=== PATIENT | female | born 1940 | race Caucasian/White ===

== ENCOUNTER 2016-03-30 07:34 | Emergency (ER) | payer OTHER ==
[~2016-03-30] VITALS: Ht 165.1 cm; Wt 87.1 kg
[2016-03-30 07:43] VITALS: Ht 165.1 cm; Wt 87.1 kg
[2016-03-30] MEDS ORDERED: SODIUM CHLORIDE 0.9% 1000ML 1,000 ML IV STA (07:55)
[2016-03-30] MEDS ORDERED: ONDANSETRON INJ 2 MG/ML 2 ML VIAL IV STA (07:55)
[2016-03-30 08:08] LABS: BASO % 0.4 %; BASO ABS # 0.04 K/uL (0-0.2); COMPLETE YES; EOS % 0.7 %; HEMATOCRIT 41.4 % (37-47); IG% 0.2 %; LYMPH % 20.1 %; LYMPH ABS # 2.02 K/uL (1.2-3.4); MEAN CELL VOLUME 91.6 fL (80-100); MEAN CORPUSCULAR HEMOGLOBIN 31.4 pg (25-34); MEAN CORPUSCULAR HGB CONC 34.3 g/dl (32-36); MEAN PLATELET VOLUME 10.8 fL (7.4-10.4); MONO % 5.9 %; NEUT % 72.7 %; PLATELET COUNT 313 K/uL (130-400); RED BLOOD COUNT 4.52 M/uL (4.2-5.4); WHITE BLOOD COUNT 10.06 K/uL (4.8-10.8)
[2016-03-30 08:15] LABS: ALT/SGPT 29 U/L (12-78); BLOOD UREA NITROGEN 12 mg/dl (7-18); BUN/CREATININE RATIO 16.2 (10-20); CALCIUM 8.6 mg/dl (8.5-10.1); CARBON DIOXIDE 24 mmol/L (21-32); CHLORIDE 101 mmol/L (98-107); CREATININE 0.76 mg/dl (0.60-1.20); GLUCOSE 93 mg/dl (70-99); POTASSIUM 3.5 mmol/L (3.5-5.1); SODIUM 137 mmol/L (136-145)
[2016-03-30 08:19] LABS: ALKALINE PHOSPHATASE 84 U/L (45-117); AST/SGOT 31 U/L (15-37)
[2016-03-30] MEDS ORDERED: VNTHFA/IN INH (08:21)
[2016-03-30] MEDS ORDERED: LISI20TA55 PO (08:21)
[2016-03-30] MEDS ORDERED: MOME200A INH (08:21)
[2016-03-30] MEDS ORDERED: METO50TA7 PO (08:21)
[2016-03-30] MEDS ORDERED: PARO30TA PO (08:21)
[2016-03-30] MEDS ORDERED: IPRASOL4 INH (08:21)
[2016-03-30] MEDS ORDERED: HYDR12.55 PO (08:21)
[2016-03-30 08:22] LABS: INR 1.1 (0.9-1.1); PARTIAL THROMBOPLASTIN RATIO 1.2; PROTHROMBIN TIME (PATIENT) 11.6 SECONDS (9.0-12.0)
--- NOTE | 2016-03-30 08:34 | DIAGNOSTIC IMAGING REPORT ---
CHEST ONE VIEW PORTABLE CLINICAL HISTORY: Fever. Sepsis. COMPARISON STUDY: No previous studies for comparison. FINDINGS: Lung volumes are normal. There is no consolidation. Pulmonary vascularity is normal. Cardiac size is normal. Mediastinal contours are normal. There is no evidence of pulmonary edema. IMPRESSION: No acute cardiopulmonary findings. Electronically signed by: Fawad Haas M.D. 03/30/2016 8:32 AM
[2016-03-30] MEDS ORDERED: ACETAMINOPHEN 500 MG TAB PO STA (08:52)
[2016-03-30] MEDS ORDERED: ONDA4TAB10 SL (09:16)
--- NOTE | 2016-03-30 09:16 | EMERGENCY ROOM VISIT NOTE ---
History Report prepared by [place]: Kamryn Marquez Under the Supervision of: Dr. Jose De Jesus D.O. First contact with patient: 07:38 Chief Complaint: FLU LIKE SX Stated Complaint: FLU LIKE SX History of Present Illness The patient is a 76 year old female who presents to the Emergency Room with complaints of worsening flu-like symptoms that started 4 days ago. The patient came to the ED via ambulance from home. The patient is experiencing a dry cough and sore throat, along with fever and chills. She hasn't taken anything for the fever since last night. She also began experiencing nausea and vomiting yesterday and diarrhea today. She denies any pain including abdominal pain. Source of History: patient Onset: 4 days ago Position: other (generalized) Quality: other (flu-like symptoms) Timing: worsening Associated Symptoms: + chills, + cough (dry), + diarrhea, + fevers, + nausea , + sorethroat, + vomiting, No abdominal pain Note: denies pain Review of Systems See HPI for pertinent positives & negatives. A total of 10 systems reviewed and were otherwise negative. Past Medical & Surgical Medical Problems: (1) Hypertension Family History No pertinent family history Social History Smoking Status: Never Smoker Marital Status: Housing Status: lives with family Current/Historical Medications Scheduled Albuterol Hfa (Ventolin Hfa), 2-4 PUFFS INH Q6H Hydrochlorothiazide (Hydrochlorothiazide), 1 TAB PO DAILY Ipratropium-Albuterol (Duoneb), 1 TREATMENT INH Q4H Lisinopril/Hctz (Prinzide 20-25MG), 1 TAB PO DAILY Metoprolol Succ (Toprol Xl) (Toprol-Xl), 50 MG PO DAILY Mometasone Furoate-Formoterol (Dulera 200/5 Mcg), 1 AER INH DAILY Ondasetron Odt (Zofran Odt), 4 MG SL Q6H Paroxetine Hcl (Paxil), 30 MG PO DAILY Allergies Coded Allergies: Sulfa Drugs (Verified Allergy, Unknown, 03/30/16) Uncoded Allergies: SULFAMETHOXAZOLE (Generic Allergy) (Allergy, Mild, Y, 05/11/02) RASH N (Allergy, Unknown, 05/11/02) nka (Allergy, Unknown, 05/11/02) sensitivity to smoke,fumes-hx asthmas (Allergy, Unknown, 05/11/02) sulfa-rash (Allergy, Unknown, 05/11/02) Physical Exam Vital Signs Date Time Temp Pulse Resp B/P Pulse Ox O2 Delivery O2 Flow Rate FiO2 03/30/16 08:47 38.9 96 32 156/79 94 Room Air 03/30/16 07:43 38.5 95 22 173/75 98 Room Air 03/30/16 07:43 95 Physical Exam CONSTITUTIONAL/VITAL SIGNS: Reviewed / noted above. GENERAL: Non-toxic in appearance. INTEGUMENTARY: Warm, dry, and [place]. HEAD: Normocephalic. EYES: without scleral icterus or trauma. ENT/OROPHARYNX: clear and mucous membranes are slightly dry. LYMPHADENOPATHY/NECK: Is supple without lymphadenopathy or meningismus. RESPIRATORY: Lungs clear and equal. CARDIOVASCULAR: Regular rate and rhythm. GI/ABDOMEN: Soft and nontender. No organomegaly or pulsatile mass. No rebound or guarding. Normal bowel sounds. EXTREMITIES: Warm and well perfused. BACK: No CVA tenderness. NEUROLOGICAL: Intact without focal deficits. PSYCHIATRIC: normal affect. MUSCULOSKELETAL: Normally developed with good muscle tone. Medical Decision & Procedures ER Provider Diagnostic Interpretation: X ray results and stated below per my interpretation and radiology interpretation. CHEST ONE VIEW PORTABLE CLINICAL HISTORY: Fever. Sepsis. COMPARISON STUDY: No previous studies for comparison. FINDINGS: Lung volumes are normal. There is no consolidation. Pulmonary vascularity is normal. Cardiac size is normal. Mediastinal contours are normal. There is no evidence of pulmonary edema. IMPRESSION: No acute cardiopulmonary findings. Electronically signed by: Fawad Haas M.D. 03/30/2016 8:32 AM Laboratory Results 03/30/16 07:40 Red Blood Count 4.52, Mean Corpuscular Volume 91.6, Mean Corpuscular Hemoglobin 31.4, Mean Corpuscular Hemoglobin Concent 34.3, Mean Platelet Volume 10.8, Neutrophils (%) (Auto) 72.7, Lymphocytes (%) (Auto) 20.1, Monocytes (%) (Auto) 5.9, Eosinophils (%) (Auto) 0.7, Basophils (%) (Auto) 0.4, Neutrophils # (Auto) 7.32, Lymphocytes # (Auto) 2.02, Monocytes # (Auto) 0.59, Eosinophils # (Auto) 0.07, Basophils # (Auto) 0.04 03/30/16 07:40 Test 03/30/16 07:40 White Blood Count 10.06 K/uL (4.8-10.8) Red Blood Count 4.52 M/uL (4.2-5.4) Hemoglobin 14.2 g/dL (12.0-16.0) Hematocrit 41.4 % (37-47) Mean Corpuscular Volume 91.6 fL (80-100) Mean Corpuscular Hemoglobin 31.4 pg (25-34) Mean Corpuscular Hemoglobin Concent 34.3 g/dl (32-36) Platelet Count 313 K/uL (130-400) Mean Platelet Volume 10.8 fL (7.4-10.4) Neutrophils (%) (Auto) 72.7 % Lymphocytes (%) (Auto) 20.1 % Monocytes (%) (Auto) 5.9 % Eosinophils (%) (Auto) 0.7 % Basophils (%) (Auto) 0.4 % Neutrophils # (Auto) 7.32 K/uL (1.4-6.5) Lymphocytes # (Auto) 2.02 K/uL (1.2-3.4) Monocytes # (Auto) 0.59 K/uL (0.11-0.59) Eosinophils # (Auto) 0.07 K/uL (0-0.5) Basophils # (Auto) 0.04 K/uL (0-0.2) RDW Standard Deviation 44.3 fL (36.4-46.3) RDW Coefficient of Variation 13.3 % (11.5-14.5) Immature Granulocyte % (Auto) 0.2 % Immature Granulocyte # (Auto) 0.02 K/uL (0.00-0.02) Prothrombin Time 11.6 SECONDS (9.0-12.0) Prothromb Time International Ratio 1.1 (0.9-1.1) Activated Partial Thromboplast Time 31.0 SECONDS (21.0-31.0) Partial Thromboplastin Ratio 1.2 Anion Gap 12.0 mmol/L (3-11) Est Creatinine Clear Calc Drug Dose 70.8 ml/min Estimated GFR () 89.6 Estimated GFR (Non- 77.3 BUN/Creatinine Ratio 16.2 (10-20) Calcium Level 8.6 mg/dl (8.5-10.1) Total Bilirubin 0.6 mg/dl (0.2-1) Direct Bilirubin 0.2 mg/dl (0-0.2) Aspartate Amino Transf (AST/SGOT) 31 U/L (15-37) Alanine Aminotransferase (ALT/SGPT) 29 U/L (12-78) Alkaline Phosphatase 84 U/L (45-117) Total Creatine Kinase 147 U/L (26-192) Creatine Kinase MB < 0.5 ng/ml (0.5-3.6) Creatine Kinase MB Ratio (0-3.0) Total Protein 6.8 gm/dl (6.4-8.2) Albumin 2.9 gm/dl (3.4-5.0) Lipase 112 U/L (73-393) Influenza Type A Antigen Neg for Influ A (NEG) Influenza Type B Antigen Neg for Influ B (NEG) Laboratory results as stated above per my review. Medications Administered Medications (Trade) Dose Ordered Sig/Azra Route Start Time Stop Time Status Last Admin Dose Admin Sodium Chloride (Nss 1000ml) 1,000 ml @ 999 mls/hr Q1H1M STAT IV 03/30/16 07:55 03/30/16 08:55 DC 03/30/16 07:55 999 MLS/HR Ondansetron HCl (Zofran Inj) 4 mg NOW STAT IV 03/30/16 07:55 03/30/16 07:57 DC 03/30/16 08:01 4 MG Acetaminophen (Tylenol Tab) 1,000 mg NOW STAT PO 03/30/16 08:52 03/30/16 08:53 DC 03/30/16 09:01 1,000 MG ED Course 0752: Previous medical records were reviewed. The patient was evaluated in room B8. A complete history and physical examination was performed. 0755: Ordered Zofran 4 mg IV, Sodium Chloride 1000 ml @ 999 mls/hr IV 0852: Ordered Tylenol Tab 1000 mg PO 0910: On reevaluation, the patient is doing well. I discussed the results and findings with the patient. She verbalized agreement of the treatment plan. She was discharged home. Medical Decision Differential includes gastroenteritis, food borne illness, infections, appendicitis, diverticulitis, inflammatory bowel disease, obstruction, GI bleed , biliary pathology. this is a 76-year-old female who presents to the ED with a chief complaint of nausea, vomiting and diarrhea. The patient states that she initially had a cough and some chills 4 days ago. Overnight she developed nausea, vomiting and diarrhea. Temperature today is 38.5. Physical exam reveals no abdominal tenderness or other significant symptoms. CBC is normal, complete metabolic panel is normal, lipase is normal. Flu swab was negative. Chest x-ray is negative for acute disease. The patient was treated with IV fluids and IV Zofran. She was given by mouth Tylenol. She did not vomit after being given the Zofran. She did have some diarrhea early when she is here but this subsided. The patient is felt to be stable for discharge. Prescription for Zofran given. Impression Primary Impression: Nausea vomiting and diarrhea Scribe Attestation The scribe's documentation has been prepared under my direction and personally reviewed by me in its entirety. I confirm that the note above accurately reflects all work, treatment, procedures, and medical decision making performed by me. Departure Information Dispostion Home / Self-Care Prescriptions Ondasetron Odt (ZOFRAN ODT) 4 Mg Tab 4 MG SL Q6H for Nausea, #20 TAB Prov: Jose De Jesus D.O. 03/30/16 Referrals Ellen Villafana M.D. (PCP) Forms HOME CARE DOCUMENTATION FORM, IMPORTANT VISIT INFORMATION Patient Instructions A Signature Page, ED Nausea Vomiting, My [facility] Additional Instructions Zofran: Allow one tablet to dissolve under the tongue every 6 hours as needed for nausea or vomiting. Tylenol as needed for discomfort or fever. Try to stay hydrated. Follow-up with your doctor for further care and evaluation in 1-2 days if symptoms persist. Return to the emergency department for worsening or new symptoms or any concerns. You have been examined and treated today on an emergency basis only. This is not a substitute for, or an effort to provide, complete comprehensive medical care. It is impossible to recognize and treat all injuries or illnesses in a single emergency department visit. It is therefore important that you follow up closely with your doctor. Call as soon as possible for an appointment.
[2016-03-30 09:32] VITALS: BP 145/68; PULSE 94; TEMP 37.5; O2SAT 93
== END 2016-03-30 09:33 | disposition home or self-care (01) ==
LOC: EDBD 07:34 → C.EDB 07:35
DX: R11.2 Nausea with vomiting, unspecified (principal); R19.7 Diarrhea, unspecified; R05 Cough; R50.9 Fever, unspecified; Z79.899 Other long term (current) drug therapy; I10 Essential (primary) hypertension

== ENCOUNTER → 2017-01-13 | Outpatient (CLI) | payer OTHER ==
[~2017-01-13] MED LIST: HYDR12.55 PO; IPRASOL4 INH; LISI20TA55 PO; METO50TA7 PO; MOME200A INH; PARO30TA PO; VNTHFA/IN INH
--- NOTE | 2017-01-14 07:48 | MAMMOGRAPHY REPORT ---
BILATERAL DIGITAL SCREENING MAMMOGRAM TOMOSYNTHESIS WITH CAD: 01/13/2017 CLINICAL HISTORY: Routine screening. Patient has no complaints. TECHNIQUE: Breast tomosynthesis in addition to standard 2D mammography was performed. Current study was also evaluated with a Computer Aided Detection (CAD) system. COMPARISON: Comparison is made to exams dated: 12/24/2015 mammogram, 12/19/2014 mammogram, 12/18/2013 m ammogram, 12/14/2011 mammogram, and 12/11/2010 mammogram - [facility]. BREAST COMPOSITION: There are scattered areas of fibroglandular density in both breasts. FINDINGS: There are benign vascular calcifications in both breasts. No suspicious mass, architectur al distortion or cluster of microcalcifications is seen. IMPRESSION: ACR BI-RADS CATEGORY 2: BENIGN There is no mammographic evidence of malignancy. A 1 year screening mammogram is recommended. The pa tient will receive written notification of the results. Approximately 10% of breast cancers are not detected with mammography. A negative mammographic report should not delay biopsy if a clinically suggestive mass is present. Amelie Verduzco M.D. ay/:01/13/2017 13:43:31 Manager It Security: Daya LOPEZ(Eriberto)([place]), [facility] letter sent: Normal 1/2 BI-RADS Code: ACR BI-RADS Category 2: Benign
== END | disposition home or self-care (01) ==
LOC: C.MAMM 13:18
PROVIDERS: ATTEND Family Medicine
DX: Z12.31 Encounter for screening mammogram for malignant neoplasm of breast (principal)

== ENCOUNTER 2018-12-29 12:44 | Inpatient (IN) ==
[2018-12-29 13:08] LABS: Basophils # (auto) 0.02 K/uL (0-0.2); Basophils % (auto) 0.2 %; Eosinophils # (auto) 0.01 K/uL (0-0.5); Eosinophils % (auto) 0.1 %; Hematocrit (blood only) 41.4 % (37-47); Hemoglobin 13.3 g/dL (12.0-16.0); Immature Granulocytes # (auto) 0.03 K/uL (0.00-0.02); Immature Granulocytes % (auto) 0.3 %; Lymphocytes # (auto) 2.59 K/uL (1.2-3.4); Lymphocytes % (auto) 25.9 %; Mean Corpuscular Hemoglobin 30.3 pg (25-34); Mean Corpuscular Hgb Conc 32.1 g/dL (32-36); Mean Corpuscular Volume 94.3 fL (80-100); Mean Platelet Volume 10.7 fL (7.4-10.4); Monocytes # (auto) 0.84 K/uL (0.11-0.59); Monocytes % (auto) 8.4 %; Neutrophils % (auto) 65.1 %; Platelet Count 315 K/uL (130-400); RDW Coefficient of Variation 13.4 % (11.5-14.5); RDW Standard Deviation 46.4 fL (36.4-46.3); Red Blood Count 4.39 M/uL (4.2-5.4); White Blood Count 9.99 K/uL (4.8-10.8)
[2018-12-29] MEDS ORDERED: ACETAMINOPHEN 1,000 MG/100 ML VIAL IV STA (13:09)
[2018-12-29] MEDS ORDERED: ALBUT/IPRATROP 3MG/0.5MG NEB 3 ML VIAL NEB STA (13:09)
[2018-12-29] MEDS ORDERED: DEXAMETHASONE **PF** INJ 10 MG/ML VIAL IV ONE (13:09)
[2018-12-29 13:15] LABS: Alanine Aminotransferase 21 U/L (12-78); Albumin Level 3.5 gm/dl (3.4-5.0); Aspartate Aminotransferase 16 U/L (15-37); BUN Creatinine Ratio 22.2 (10-20); Blood Urea Nitrogen 24 mg/dl (7-18); Calcium 8.9 mg/dl (8.5-10.1); Carbon Dioxide 27 mmol/L (21-32); Chloride 107 mmol/L (98-107); Est GFR (African American) 58.4; Est GFR (Non-African American) 50.4; Glucose 79 mg/dl (70-99); Lipase 175 U/L (73-393); Magnesium 2.2 mg/dl (1.8-2.4); Potassium 3.6 mmol/L (3.5-5.1); Sodium 140 mmol/L (136-145)
[2018-12-29 13:20] LABS: Albumin Globulin Ratio 1.1 (0.9-2); Alkaline Phosphatase 64 U/L (45-117); Bilirubin,Total 0.3 mg/dl (0.2-1); Globulin 3.3 gm/dl (2.5-4.0); Phosphorus 3.1 mg/dl (2.5-4.9); Total Protein 6.8 gm/dl (6.4-8.2); Troponin I < 0.015 ng/ml (0-0.045)
--- NOTE | 2018-12-29 13:25 | XRay Report ---
SINGLE VIEW CHEST CLINICAL HISTORY: Atypical chest pain. FINDINGS: An AP, portable, upright chest radiograph is compared to study dated 03/30/2016. The examinat ion is mildly degraded by portable technique and patient rotation. The heart is top normal for projec tion noting atherosclerotic calcification of the thoracic aorta. There is mild bibasilar atelectasis. No airspace consolidation or large pleural effusion is identified. No pneumothorax is seen. The skel etal structures are osteopenic. The bony thorax is grossly intact. IMPRESSION: No acute cardiopulmonary abnormality. Electronically signed by: Brody Strauss M.D. 12/29/2018 1:23 PM
[2018-12-29] MEDS ORDERED: SODIUM CHLORIDE 0.9% 500 ML IV ONE (14:47)
[2018-12-29] MEDS ORDERED: OPTIRAY 320 125ml IV PRN (15:51)
--- NOTE | 2018-12-29 16:12 | CT Scan Report ---
CT ANGIOGRAM OF THE CHEST CLINICAL HISTORY: Atypical chest pain and shortness of breath COMPARISON STUDY: Chest x-ray dated 12/29/2018, CT scan of the abdomen pelvis dated 02/20/2018 TECHNIQUE: Following the IV administration of 118 mL of [id number]-320, CT angiogram of the thorax was p erformed from the thoracic inlet to the lung bases utilizing the pulmonary embolus protocol. Images a re reviewed in the axial, sagittal, and coronal planes. IV contrast was administered without complica tion. MIP imaging was performed. A dose lowering technique was utilized adhering to the principles o f ALARA. CT DOSE: 390.95 mGy.cm FINDINGS: Within the upper abdomen, there is stable left lobe hepatic hypodensities likely representing cysts. No pathologically enlarged axillary mediastinal or hilar lymph nodes were visualized. There was no evidence of thoracic aortic dilatation. There is a small right lower lobe pulmonary artery filling defect. This could be chronic. There are dependent atelectatic changes present. There is a solid 12 x 7 mm left upper lobe pulmonary nodule which appears to be associated with an accessory fissure. There are no significant pleural effusions IMPRESSION: 1. Small right lower lobe pulmonary embolus, possibly chronic 2. No evidence of pathologic adenopathy 3. No evidence of pneumonia 4. 12 x 7 mm solid left upper lobe pulmonary nodule which appears to be associated with an accessory fissure. A 3 month follow-up CT scan is recommended. Please refer to below summary of Fleischner criteria recommendations for follow-up of incidental CT n odules (Andres Howe, Guidelines for management of small pulmonary nodules detected on CT scans: A sta tement from the Fleischner Society, Radiology 237: [phone].) SOLID NODULES Solitary nodule size: <6 mm * low risk patients: no follow-up needed * high risk patients: optional CT at 12 months Solitary nodule size: 6-8 mm * low risk patients: follow-up at 6-12 months, then consider further follow-up at 18-24 months * high risk patients: initial follow-up CT at 6-12 months and then at 18-24 months if no change Solitary nodule size: >8 mm * either low or high risk patients - consider follow-up CT at 3 months, and/or CT-PET, and/or biopsy Multiple nodules size: <6 mm * low risk patients: no routine follow-up * high risk patients: optional CT at 12 months Multiple nodules size: 6-8 mm * low risk patients: follow-up at 3-6 months, then consider further follow-up at 18-24 months * high risk patients: follow-up at 3-6 months, then at 18-24 months if no change Multiple nodules size: >8 mm * low risk patients: follow-up at 3-6 months, then consider further follow-up at 18-24 months * high risk patients: follow-up at 3-6 months, then at 18-24 months if no change Note: newly detected indeterminate nodule in persons 35 years of age or older. * low risk patients: minimal or absent history of smoking and/or other known risk factors * high risk patients: history of smoking or of other known risk factors (e.g. first degree relative with lung cancer, or exposure to asbestos, radon, uranium) * if a nodule up to 8 mm is partly solid or is ground glass further follow-up is required after 24 m onths to exclude possible slow growing adenocarcinoma (SARAI) SUBSOLID NODULES Solitary pure ground-glass nodule * nodule size <6 mm - no CT follow-up required * nodule size >=6 mm - follow-up CT at 6-12 months, then every 2 years until 5 years Solitary part-solid nodule * nodule size <6 mm - no CT follow-up required * nodule size >=6 mm - follow-up CT at 3-6 months. If unchanged, and solid component remains <6 mm, then annual follow-up for 5 years Multiple subsolid nodules * nodule size <6 mm - follow-up CT at 3-6 months, consider further follow-up at 2 and 4 years if sta ble * nodule size >=6 mm - follow-up CT at 3-6 months, subsequent management based on the most suspiciou s nodule(s) Electronically signed by: Bradford Baird M.D. 12/29/2018 4:11 PM
--- NOTE | 2018-12-29 17:18 | History & Physical Report ---
Date of Service December 29, 2018 Assessment & Plan (1) Pulmonary embolism: Pulmonary embolism, possibly chronic No history of blood clots in the past as per patient Family history of blood clots (+Mother) --CTA:Small right lower lobe pulmonary embolus, possibly chronic. No evidence of pathologic adenopathy. No evidence of pneumonia. 12 x 7 mm solid left upper lobe pulmonary nodule which appears to be associated with an accessory fissure. A 3 month follow-up CT scan is recommended. --Saturating well on room air Patient prefers to be on Coumadin for anticoagulation Started on heparin ggt, Coumadin Monitor INR Oxygen PRN hypercoagulable work up as outpatient Check ECHO Trend cardiac enzymes EKG: No signs of acute Ischemia Asthma Exacerbation: Saturating well on room air Imaging studies no signs of consolidation start on Prednisone, bronchodilators Supplemental oxygen as needed Continue home inhalers Sinus bradycardia Metoprolol decreased to 6.25 mg daily Continue beta-pal with holding parameters Monitor on telemetry Left upper lobe pulmonary nodule 12 into 7 mm solid left upper lobe pulmonary nodule noted on CT scan No history of smoking Needs repeat CT chest in 3 months CKD III Creatinine at baseline Monitor renal function Avoid nephrotoxic agents as able Irritable bowel syndrome No acute issues Dicyclomine as needed Hypothyroidism Check TSH Continue levothyroxine Dyslipidemia Continue pravastatin Hypertension Stable continue lisinopril, metoprolol Chronic rhinitis Continue Singulair, levocetirizine DVT Px: Heparin drip, Coumadin CODE STATUS Full code Disposition Expected discharge home in stable Case management consulted for discharge planning History of Present Illness Chief Complaint: SOB, chest Pain Primary Care Provider: Ellen Villafana MD Patient is a 78-year-old female with history of CKD III, irritable bowel syndrome, hypothyroidism, dyslipidemia, asthma, hypertension, chronic rhinitis and other problems presents with history of shortness of breath, left-sided chest pain, cough with intermittent expectoration. Patient has been using her inhaler more frequently secondary to worsening shortness of breath since 1 week duration. She started using prednisone 30 mg daily since 3 days which did not help with her symptoms. Also states having cough with intermittent clear expectoration associated with chest tightness and dyspnea on exertion. She noted to have left-sided chest pain since yesterday which increases with movement, deep breathing, dull in nature intermittently radiating towards her right side. She denies being started on any antibiotics by her PCP. Denies any history of palpitations, orthopnea, PND, dizziness, pedal edema, diaphoresis, wheezing, hemoptysis, fever, chills, headache, weakness, nausea, vomiting, abdominal pain, blood in stools, diarrhea, dysuria, hematuria, recent travel, sick contact, recent change in medications. Chest CT is suggestive of small right lower lobe pulmonary embolus, possibly chronic; no evidence of pathologic adenopathy; no evidence of pneumonia; 12 until 7 mm solid left upper lobe pulmonary nodule. Allergies Allergy/AdvReac Type Severity Reaction Status Date / Time starch Allergy Unknown ORANGES Verified 12/29/18 13:52 GRAPEFRUIT-MOUTH IRRITATION Sulfa (Sulfonamide Allergy Unknown HIVES Verified 12/29/18 13:52 Antibiotics) [place] And Derivatives Allergy Verified 12/29/18 13:52 pineapple Allergy Verified 12/29/18 13:52 Home Medications Home Medications Medication Instructions Recorded Confirmed Type Dulera 2 puff INHALATION BID 02/20/18 12/29/18 History albuterol sulfate 2 puff INHALATION Q6H PRN 02/20/18 12/29/18 History cholecalciferol (vitamin D3) 1,000 unit PO DAILY 02/20/18 12/29/18 History [Vitamin D3] dicyclomine 10 mg PO QID PRN 02/20/18 12/29/18 History ipratropium-albuterol 1 dose INHALATION Q6 PRN 02/20/18 12/29/18 History levocetirizine [Xyzal] 5 mg PO QPM 02/20/18 12/29/18 History levothyroxine [Synthroid] 50 mcg PO DAILY 02/20/18 12/29/18 History metoprolol succinate [Toprol XL] 12.5 mg PO DAILY 02/20/18 12/29/18 History paroxetine HCl [Paxil] 30 mg PO QAM 02/20/18 12/29/18 History pravastatin 10 mg PO QPM 02/20/18 12/29/18 History ranitidine HCl [Zantac 75] 75 mg PO BID 02/20/18 12/29/18 History spironolactone [Aldactone] 12.5 mg PO DAILY 02/20/18 12/29/18 History lorazepam 0.5 mg PO BID PRN 02/24/18 12/29/18 History alendronate 70 mg PO Q7D 12/29/18 12/29/18 History lisinopril-hydrochlorothiazide 0.5 tab PO DAILY 12/29/18 12/29/18 History montelukast [Singulair] 10 mg PO PM 12/29/18 12/29/18 History Past Med/Surg History Medical History Hypothyroidism (Chronic) Hypokalemia (Acute) Acute blood loss anemia (Acute) Asthma (Chronic) Metabolic acidosis (Acute) QUINTIN (acute kidney injury) (Acute) Abdominal pain (Acute) Colitis (Acute) GI bleed (Acute) IBS (irritable bowel syndrome) (Chronic) Hypertension (Chronic) Surgical History History of cholecystectomy (Chronic) Family History Father Hypertension Mother Stroke Other Family history non-contributory Social History Preferred Language: Romanian Communication Ability: Effective 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: No Beliefs That Will Affect Care: None marital status: Current Living Situation: Spouse current occupational status: retired Feels Safe at Home: Yes Smoking Status: Never smoker Hx Alcohol Use: No Review of Systems Review of Systems: All systems reviewed & are unremarkable except as noted in HPI & below Physical Exam Physical Exam: Physical Exam: Vitals signs as noted above General Appearance:Moderately built and nourished, no apparent distress Head: normocephalic, Atraumatic Eyes: normal inspection, EOMI Neck: supple, Trachea midline Respiratory/Chest: Decreased breath sounds, CTA, No accessory muscle use Cardiovascular: S1, S2, No murmur Abdomen/GI:Soft, Non tender, Bowel sounds present Extremities/Musculoskelatal:normal inspection, no edema Neurologic/Psych:AAOX3, grossly no focal neurological deficits Skin: normal color, warm Results & Data Vital Signs (Past 12 Hours) Vital Signs Temp Pulse Pulse Resp BP BP Pulse Ox 12/29/18 14:53 57 L 18 158/52 H 97 12/29/18 14:02 57 L 18 164/83 H 95 12/29/18 13:26 19 97 12/29/18 13:18 97 12/29/18 12:52 36.8 C 55 L 20 188/69 H 96 Laboratory Results Short CBC 12/29/18 Range/Units 12:31 WBC 9.99 (4.8-10.8) K/uL Hgb 13.3 (12.0-16.0) g/dL Hct 41.4 (37-47) % Plt Count 315 (130-400) K/uL BMP 12/29/18 12:31 Sodium 140 Potassium 3.6 Chloride 107 Carbon Dioxide 27 BUN 24 H Creatinine 1.07 Glucose 79 Calcium 8.9 Cardiac Enzymes 12/29/18 Range/Units 12:31 Troponin I < 0.015 (0-0.045) ng/ml Liver Function 12/29/18 Range/Units 12:31 Total Bilirubin 0.3 (0.2-1) mg/dl AST 16 (15-37) U/L ALT 21 (12-78) U/L Alkaline Phosphatase 64 (45-117) U/L Albumin 3.5 (3.4-5.0) gm/dl Diagnostic Findings CTA: 1. Small right lower lobe pulmonary embolus, possibly chronic 2. No evidence of pathologic adenopathy 3. No evidence of pneumonia 4. 12 x 7 mm solid left upper lobe pulmonary nodule which appears to be associated with an accessory fissure. A 3 month follow-up CT scan is recommended. CXR: No acute cardiopulmonary abnormality. Medications Administered Home Medications Medication Instructions Recorded Confirmed Dulera 2 puff INHALATION BID 02/20/18 12/29/18 albuterol sulfate 2 puff INHALATION Q6H PRN 02/20/18 12/29/18 cholecalciferol (vitamin D3) 1,000 unit PO DAILY 02/20/18 12/29/18 [Vitamin D3] dicyclomine 10 mg PO QID PRN 02/20/18 12/29/18 ipratropium-albuterol 1 dose INHALATION Q6 PRN 02/20/18 12/29/18 levocetirizine [Xyzal] 5 mg PO QPM 02/20/18 12/29/18 levothyroxine [Synthroid] 50 mcg PO DAILY 02/20/18 12/29/18 metoprolol succinate [Toprol XL] 12.5 mg PO DAILY 02/20/18 12/29/18 paroxetine HCl [Paxil] 30 mg PO QAM 02/20/18 12/29/18 pravastatin 10 mg PO QPM 02/20/18 12/29/18 ranitidine HCl [Zantac 75] 75 mg PO BID 02/20/18 12/29/18 spironolactone [Aldactone] 12.5 mg PO DAILY 02/20/18 12/29/18 lorazepam 0.5 mg PO BID PRN 02/24/18 12/29/18 alendronate 70 mg PO Q7D 12/29/18 12/29/18 lisinopril-hydrochlorothiazide 0.5 tab PO DAILY 12/29/18 12/29/18 montelukast [Singulair] 10 mg PO PM 12/29/18 12/29/18 ECG Additional Comments: EKG: Sinus bradycardia, QTC:380 (1) Pulmonary embolism Acute cor pulmonale presence: unspecified Chronicity: unspecified Pulmonary embolism type: unspecified Qualified Code(s): I26.99 - Other pulmonary embolism without acute cor pulmonale
[2018-12-29] MEDS ORDERED: DICYCLOMINE HCL 10 MG CAP PO PRN (20:40)
[2018-12-29] MEDS ORDERED: POLYETHYLENE (MIRALAX) 17 GM PACK PO PRN (20:40)
[2018-12-29] MEDS ORDERED: ONDANSETRON INJ 2 MG/ML 2 ML VIAL IV PRN (20:40)
[2018-12-29] MEDS ORDERED: Heparin IV Standard *NO* Bolus IV ONE (20:40)
[2018-12-29] MEDS ORDERED: ALBUTEROL 0.083% NEBU SOLN 3 ML VIAL NEB PRN (20:40)
[2018-12-29] MEDS: HEPARIN SODIUM/DEXTROSE 25,000 UNITS/500 ML BAG IV SCH (21:29)
[2018-12-29] MEDS: LORazepam 1 MG TAB PO PRN (21:37)
[2018-12-29 21:40] LABS: Prothrombin Time 10.1 Seconds (9.0-12.0)
[2018-12-29] MEDS: ALBUT/IPRATROP 3MG/0.5MG NEB 3 ML VIAL NEB SCH (22:00)
[2018-12-29] MEDS: MONTELUKAST SODIUM 10 MG TABLET PO SCH (22:22)
[2018-12-29] MEDS: PRAVASTATIN SOD 10 MG TAB PO SCH (22:22)
[2018-12-29] MEDS ORDERED: WARFARIN SOD 5 MG TAB PO ONE (23:00)
--- NOTE | 2018-12-30 00:58 | Emergency Department Note ---
Entered by Andressa Gurrola acting as a scribe for History of Present Illness General Chief complaint: Chest Pain Stated complaint: chest pain Time Seen by Provider: 12/29/18 12:52 Source: patient History of Present Illness Onset (ago): day(s) (yesterday) Location: chest Pain Consistency: + intermittent Maximum Pain Intensity: 6 Quality: + other ("someone had wrapped an WILLIAM bandage around her chest ) Relieved By: not by medication (inhaler) Exacerbated By: + movement and + other (exertion) Associated symptoms: + denies other symptoms (dizziness, wheezing); no diaphoresis, no nausea/vomiting (nausea) and no shortness of breath The patient is a 78 year old female who presents to the Emergency Room with complaints of intermittent chest pain starting yesterday. The patient states that yesterday she was running around doing errands, going to meetings, and driving when she noticed that her chest was starting to feel a little tight. She states that she has a history of cough variant asthma and just thought it was that. She reports that it would come and go so she didnt think much of it. She states that last night it began to become more constant. She states that she felt like someone had wrapped an WILLIAM bandage around her chest. She notes that the pain would radiate into her back. She reports that she tried taking her inhaler, but it offered no relief. The patient states that since then she has noticed if she lies perfectly still, the pain goes away. She notes that he pain becomes worse with exertion and any movement. The patient denies this ever happening before, nausea, diaphoresis, dizziness, a history of blood clots, a history of heart problems, wheezing, and shortness of breath. Home Medications Home Medications Medication Instructions Recorded Confirmed Type Dulera 2 puff INHALATION BID 02/20/18 12/29/18 History albuterol sulfate 2 puff INHALATION Q6H PRN 02/20/18 12/29/18 History cholecalciferol (vitamin D3) 1,000 unit PO DAILY 02/20/18 12/29/18 History [Vitamin D3] dicyclomine 10 mg PO QID PRN 02/20/18 12/29/18 History ipratropium-albuterol 1 dose INHALATION Q6 PRN 02/20/18 12/29/18 History levocetirizine [Xyzal] 5 mg PO QPM 02/20/18 12/29/18 History levothyroxine [Synthroid] 50 mcg PO DAILY 02/20/18 12/29/18 History metoprolol succinate [Toprol XL] 12.5 mg PO DAILY 02/20/18 12/29/18 History paroxetine HCl [Paxil] 30 mg PO QAM 02/20/18 12/29/18 History pravastatin 10 mg PO QPM 02/20/18 12/29/18 History ranitidine HCl [Zantac 75] 75 mg PO BID 02/20/18 12/29/18 History spironolactone [Aldactone] 12.5 mg PO DAILY 02/20/18 12/29/18 History lorazepam 0.5 mg PO BID PRN 02/24/18 12/29/18 History alendronate 70 mg PO Q7D 12/29/18 12/29/18 History lisinopril-hydrochlorothiazide 0.5 tab PO DAILY 12/29/18 12/29/18 History montelukast [Singulair] 10 mg PO PM 12/29/18 12/29/18 History Allergies Allergy/AdvReac Type Severity Reaction Status Date / Time starch Allergy Unknown ORANGES Verified 12/29/18 13:52 GRAPEFRUIT-MOUTH IRRITATION Sulfa (Sulfonamide Allergy Unknown HIVES Verified 12/29/18 13:52 Antibiotics) Greenlee And Derivatives Allergy Verified 12/29/18 13:52 pineapple Allergy Verified 12/29/18 13:52 Past Med/Surg History Medical History Hypothyroidism (Chronic) Hypokalemia (Acute) Acute blood loss anemia (Acute) Asthma (Chronic) Metabolic acidosis (Acute) QUINTIN (acute kidney injury) (Acute) Abdominal pain (Acute) Colitis (Acute) GI bleed (Acute) IBS (irritable bowel syndrome) (Chronic) Hypertension (Chronic) Surgical History History of cholecystectomy (Chronic) Family History Father Hypertension Mother Stroke Other Family history non-contributory Social History Preferred Language: Cypriot Communication Ability: Effective 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 and A total of 10 systems reviewed and were otherwise negative Physical Exam Vital Signs Vital Signs - 24 hr 12/29/18 12:52 12/29/18 13:18 12/29/18 13:26 Temperature 36.8 C Temperature Source Oral Sepsis Recent Fever Within 48 Hours No Sepsis New/Unexplained Change in Mental Status No Sepsis Action Taken by Nursing No Action Required Pulse Rate 55 L Pulse Rate [Right Finger] Pulse Rhythm [Right Finger] Pulse Strength [Right Finger] Respiratory Rate 20 19 Respiratory Effort / Characteristics Non-Labored Spontaneous Non-Labored Spontaneous Respiratory Depth Normal Respiratory Pattern Regular Blood Pressure 188/69 H Blood Pressure [Right Arm] Blood Pressure Mean 108 Blood Pressure Mean [Right Arm] Blood Pressure Position Lying Blood Pressure Position [Right Arm] Pulse Oximetry 96 97 97 Oxygen Delivery Method Room Air Room Air Room Air 12/29/18 14:02 12/29/18 14:53 12/29/18 16:53 Temperature Temperature Source Sepsis Recent Fever Within 48 Hours Sepsis New/Unexplained Change in Mental Status Sepsis Action Taken by Nursing Pulse Rate Pulse Rate [Right Finger] 57 L 57 L 53 L Pulse Rhythm [Right Finger] Regular Pulse Strength [Right Finger] Normal Respiratory Rate 18 18 18 Respiratory Effort / Characteristics Non-Labored Spontaneous Non-Labored Spontaneous Non-Labored Spontaneous Respiratory Depth Normal Normal Normal Respiratory Pattern Regular Regular Regular Blood Pressure Blood Pressure [Right Arm] 164/83 H 158/52 H 167/55 H Blood Pressure Mean Blood Pressure Mean [Right Arm] 110 87 92 Blood Pressure Position Blood Pressure Position [Right Arm] Lying Lying Lying Pulse Oximetry 95 97 96 Oxygen Delivery Method Room Air Room Air Room Air 12/29/18 18:53 Temperature Temperature Source Sepsis Recent Fever Within 48 Hours Sepsis New/Unexplained Change in Mental Status Sepsis Action Taken by Nursing Pulse Rate Pulse Rate [Right Finger] 60 Pulse Rhythm [Right Finger] Regular Pulse Strength [Right Finger] Normal Respiratory Rate 18 Respiratory Effort / Characteristics Non-Labored Spontaneous Respiratory Depth Normal Respiratory Pattern Regular Blood Pressure Blood Pressure [Right Arm] 129/76 Blood Pressure Mean Blood Pressure Mean [Right Arm] 93 Blood Pressure Position Blood Pressure Position [Right Arm] Lying Pulse Oximetry 96 Oxygen Delivery Method Room Air GENERAL: Awake, alert, well-appearing, in no distress. BMI of 29.3. HENT: Normocephalic, atraumatic. Oropharynx with dry mucous membranes and otherwise unremarkable. EYES: Normal conjunctiva. Sclera non-icteric. NECK: Supple. No nuchal rigidity. FROM. No JVD. RESPIRATORY: Scant intermittent wheeze, otherwise clear. CARDIAC: Regular rate, normal rhythm. Extremities warm and well perfused. Pulses equal. ABDOMEN: Soft, non-distended. No tenderness to palpation. No rebound or guarding. No masses. RECTAL: Deferred. MUSCULOSKELETAL: Chest examination reveals no tenderness. The back is symmetrical on inspection without obvious abnormality. There is no CVA tenderness to palpation. No joint edema. LOWER EXTREMITIES: Calves are equal size bilaterally and non-tender. No edema. No discoloration. NEURO: Normal sensorium. No sensory or motor deficits noted. SKIN: No rash or jaundice noted. Course 1302: Past medical records reviewed. The patient was evaluated in room C5. A complete history and physical exam was performed. 1520: I reevaluated the patient and updated her on her test results thus far. 1649: I reevaluated the patient and updated her on her test results. I discussed the treatment plan with her. She verbally agrees and understands. 1706: I discussed the patient's case with IZAIAH Wilde. She will evaluate the patient under Dr. Armstrong's service. Consultations Consultation #1: I discussed the patient's case with IZAIAH Wilde. She will evaluate the patient under Dr. Armstrong's service. Time: 17:06 Administered Medications Albuterol (Duoneb) 3 ml NEB QIDR DEANNE Stop: 01/28/19 20:39 Last Admin: 12/29/18 22:00 Dose: 3 ml Documented by: [id number] Heparin Sodium/Dextrose (Heparin Sodium/Dextrose) 25,000 units in 500 mls @ 25 mls/hr IV .Q20H DEANNE; Protocol Stop: 01/28/19 20:39 Last Admin: 10/03/19 21:29 Dose: 1,250 units/hr, 25 mls/hr Documented by: [id number] Cosigned by: [id number] Lorazepam (Ativan) 1 mg PO BID PRN PRN Reason: Anxiety Stop: 01/28/19 21:09 Last Admin: 12/29/18 21:37 Dose: 1 mg Documented by: [id number] Miscellaneous (Order Awaiting Action) 1 ea N/A QS DEANNE Stop: 01/29/19 00:00 Last Admin: 12/29/18 23:47 Dose: Not Given Documented by: [id number] Miscellaneous (Order Awaiting Action) 1 ea N/A QS DEANNE Stop: 01/29/19 00:00 Last Admin: 12/29/18 23:47 Dose: Not Given Documented by: [id number] Montelukast Sodium (Singulair) 10 mg PO PM DEANNE Stop: 01/28/19 20:59 Last Admin: 12/29/18 22:22 Dose: 10 mg Documented by: [id number] Pravastatin Sodium (Pravachol) 10 mg PO QPM DEANNE Stop: 01/28/19 20:59 Last Admin: 12/29/18 22:22 Dose: 10 mg Documented by: [id number] Ranitidine HCl (Zantac) 75 mg PO BID DEANNE Stop: 01/28/19 20:59 Last Admin: 12/29/18 22:24 Dose: Not Given Documented by: [id number] Discontinued Medications Albuterol (Duoneb) 3 ml NEB NOW STA Stop: 12/29/18 13:10 Last Admin: 12/29/18 13:23 Dose: 3 ml Documented by: [id number] Dexamethasone Sodium Phosphate (Decadron Pf) 10 mg IV NOW ONE Stop: 12/29/18 13:10 Last Admin: 12/29/18 13:55 Dose: 10 mg Documented by: [id number] Acetaminophen (Ofirmev) 1,000 mg in 100 mls @ 400 mls/hr IV NOW STA Stop: 12/29/18 13:23 Last Infusion: 12/29/18 14:18 Dose: 0 mls/hr Documented by: [id number] Admin: 12/29/18 13:55 Dose: 400 mls/hr Documented by: [id number] Sodium Chloride (Nss) 500 mls @ 999 mls/hr IV .Q31M ONE Stop: 12/29/18 15:17 Last Infusion: 12/29/18 15:23 Dose: 0 mls/hr Documented by: [id number] Admin: 12/29/18 14:52 Dose: 999 mls/hr Documented by: [id number] Ioversol (Optiray 320 125ml) 118 ml IV ONCE PRN PRN Reason: Interaction Checking Stop: 01/02/19 15:50 Last Admin: 12/29/18 15:51 Dose: 118 ml Documented by: [id number] Warfarin Sodium (Coumadin) 5 mg PO NOW ONE Stop: 12/29/18 23:01 Last Admin: 12/29/18 22:21 Dose: 5 mg Documented by: [id number] Medical Decision Making Differential Diagnosis Differential diagnoses includes but is not limited to acute coronary syndrome, myocardial infarction, pericarditis, pulmonary embolus, aortic dissection, pneumonia, pneumothorax, musculoskeletal, shingles, esophageal. Medical Records Attestation: I reviewed the patient's medical records. Home Medications Current Medication List: was personally reviewed by me Laboratory Data Attestation: I reviewed the patient's lab results. Result diagrams: 12/29/18 12:31 12/29/18 12:31 Lab Results 12/29/18 12/29/18 12/29/18 Range/Units 12:31 12:31 12:31 WBC 9.99 (4.8-10.8) K/uL RBC 4.39 (4.2-5.4) M/uL Hgb 13.3 (12.0-16.0) g/dL Hct 41.4 (37-47) % MCV 94.3 (80-100) fL MCH 30.3 (25-34) pg MCHC 32.1 (32-36) g/dL RDW Std Deviation 46.4 H (36.4-46.3) fL RDW Coeff of Madhuri 13.4 (11.5-14.5) % Plt Count 315 (130-400) K/uL MPV 10.7 H (7.4-10.4) fL Immature Gran % (Auto) 0.3 % Neut % (Auto) 65.1 % Lymph % (Auto) 25.9 % [place] % (Auto) 8.4 % Eos % (Auto) 0.1 % Baso % (Auto) 0.2 % Immature Gran # (Auto) 0.03 H (0.00-0.02) K/uL Neut # (Auto) 6.50 (1.4-6.5) K/uL Lymph # (Auto) 2.59 (1.2-3.4) K/uL [place] # (Auto) 0.84 H (0.11-0.59) K/uL Eos # (Auto) 0.01 (0-0.5) K/uL Baso # (Auto) 0.02 (0-0.2) K/uL PT 10.1 (9.0-12.0) Seconds INR 1.0 (0.9-1.1) Sodium 140 (136-145) mmol/L Potassium 3.6 (3.5-5.1) mmol/L Chloride 107 (98-107) mmol/L Carbon Dioxide 27 (21-32) mmol/L Anion Gap 7.0 (3-11) BUN 24 H (7-18) mg/dl Creatinine 1.07 (0.6-1.2) mg/dl Est Cr Clr Drug Dosing Not Reportable Est GFR ( Amer) 58.4 Est GFR (Non-Af Amer) 50.4 BUN/Creatinine Ratio 22.2 H (10-20) Glucose 79 (70-99) mg/dl Calcium 8.9 (8.5-10.1) mg/dl Phosphorus 3.1 (2.5-4.9) mg/dl Magnesium 2.2 (1.8-2.4) mg/dl Total Bilirubin 0.3 (0.2-1) mg/dl AST 16 (15-37) U/L ALT 21 (12-78) U/L Alkaline Phosphatase 64 (45-117) U/L Troponin I < 0.015 (0-0.045) ng/ml Total Protein 6.8 (6.4-8.2) gm/dl Albumin 3.5 (3.4-5.0) gm/dl Globulin 3.3 (2.5-4.0) gm/dl Albumin/Globulin Ratio 1.1 (0.9-2) Lipase 175 (73-393) U/L Imaging Data Radiologist's Impression: Radiology results as stated below per my review and the radiologist's interpretation: SINGLE VIEW CHEST CLINICAL HISTORY: Atypical chest pain. FINDINGS: An AP, portable, upright chest radiograph is compared to study dated 03/30/2016. The examination is mildly degraded by portable technique and patient rotation. The heart is top normal for projection noting atherosclerotic calcification of the thoracic aorta. There is mild bibasilar atelectasis. No airspace consolidation or large pleural effusion is identified. No pneumothorax is seen. The skeletal structures are osteopenic. The bony thorax is grossly intact. IMPRESSION: No acute cardiopulmonary abnormality. Electronically signed by: Brody Strauss M.D. 12/29/2018 1:[address] ANGIOGRAM OF THE CHEST CLINICAL HISTORY: Atypical chest pain and shortness of breath COMPARISON STUDY: Chest x-ray dated 12/29/2018, CT scan of the abdomen pelvis dated 02/20/2018 TECHNIQUE: Following the IV administration of 118 mL of Optiray-320, CT angiogram of the thorax was performed from the thoracic inlet to the lung bases utilizing the pulmonary embolus protocol. Images are reviewed in the axial, sagittal, and coronal planes. IV contrast was administered without complication. MIP imaging was performed. A dose lowering technique was utilized adhering to the principles of ALARA. CT DOSE: 390.95 mGy.cm FINDINGS: Within the upper abdomen, there is stable left lobe hepatic hypodensities likely representing cysts. No pathologically enlarged axillary mediastinal or hilar lymph nodes were visualized. There was no evidence of thoracic aortic dilatation. There is a small right lower lobe pulmonary artery filling defect. This could be chronic. There are dependent atelectatic changes present. There is a solid 12 x 7 mm left upper lobe pulmonary nodule which appears to be associated with an accessory fissure. There are no significant pleural effusions IMPRESSION: 1. Small right lower lobe pulmonary embolus, possibly chronic 2. No evidence of pathologic adenopathy 3. No evidence of pneumonia 4. 12 x 7 mm solid left upper lobe pulmonary nodule which appears to be associated with an accessory fissure. A 3 month follow-up CT scan is recom mended. Please refer to below summary of Fleischner criteria recommendations for follow- up of incidental CT nodules (Andres Howe, Guidelines for management of small pulmonary nodules detected on CT scans: A statement from the Fleischner Society, Radiology 237: [phone].) SOLID NODULES Solitary nodule size: <6 mm * low risk patients: no follow-up needed * high risk patients: optional CT at 12 months Solitary nodule size: 6-8 mm * low risk patients: follow-up at 6-12 months, then consider further follow-up at 18-24 months * high risk patients: initial follow-up CT at 6-12 months and then at 18-24 months if no change Solitary nodule size: >8 mm * either low or high risk patients - consider follow-up CT at 3 months, and/or CT-PET, and/or biopsy Multiple nodules size: <6 mm * low risk patients: no routine follow-up * high risk patients: optional CT at 12 months Multiple nodules size: 6-8 mm * low risk patients: follow-up at 3-6 months, then consider further follow-up at 18-24 months * high risk patients: follow-up at 3-6 months, then at 18-24 months if no ch lc Multiple nodules size: >8 mm * low risk patients: follow-up at 3-6 months, then consider further follow-up at 18-24 months * high risk patients: follow-up at 3-6 months, then at 18-24 months if no change Note: newly detected indeterminate nodule in persons 35 years of age or older. * low risk patients: minimal or absent history of smoking and/or other known risk factors * high risk patients: history of smoking or of other known risk factors (e.g. first degree relative with lung cancer, or exposure to asbestos, radon, uranium) * if a nodule up to 8 mm is partly solid or is ground glass further follow-up is required after 24 months to exclude possible slow growing adenocarcinoma (SARAI) SUBSOLID NODULES Solitary pure ground-glass nodule * nodule size <6 mm - no CT follow-up required * nodule size >=6 mm - follow-up CT at 6-12 months, then every 2 years until 5 years Solitary part-solid nodule * nodule size <6 mm - no CT follow-up required * nodule size >=6 mm - follow-up CT at 3-6 months. If unchanged, and solid component remains <6 mm, then annual follow-up for 5 years Multiple subsolid nodules * nodule size <6 mm - follow-up CT at 3-6 months, consider further follow-up at 2 and 4 years if stable * nodule size >=6 mm - follow-up CT at 3-6 months, subsequent management based on the most suspicious nodule(s) Electronically signed by: Bradford Baird M.D. 12/29/2018 4:11 PM ECG Data Attestation: I personally reviewed and interpreted this ECG as follows: Indication: chest pain Rate (beats per minute): 55 Rhythm: sinus bradycardia Findings: + other (normal axis); no ST depression, no ST elevation and no acute ischemic change Blood Pressure Blood Pressure Findings: Elevated blood pressure Blood Pressure Disposition: further management by hospitalist DENISHA Narrative The patient is a pleasant 78-year-old female with past medical history of hypertension; asthma, HLD, vocal cord dysfunction from chronic cough from asthma; irritable bowel syndrome with diarrhea, hypothyroidism and chronic kidney disease stage III who presents to the emergency department with chest and back pain per HPI. Patient reports symptoms will occur at rest but will become more pronounce with even minimal exertion and movement. EKG without evidence of acute ischemia. CXR negative for acute process. WBC, H/H, platelets wnl. Chemistry without acidosis. LFTs and electrolytes unremarkable. Troponin negative. Patient feeling some improvement after duoneb and dexamethasone however still with right back pain. Thus CTA of chest performed and demonstrates small right lower lobe pulmonary embolus that is questioned to possibly be chronic however, given recent onset of sx suspect to be acute. Patient is agreeable for plan for admission. Case was discussed with Albertina Valadez, [facility], who evaluate the patient for admission. Will defer anticoagulation pending admitting evaluation and possible hypercoagulability w/u given no clear provoking factors. Impression & Plan Pulmonary embolism, Chest pain, Back pain, Incidental pulmonary nodule Discharge Plan Visit Data *Final* Discharge Date/Time: 12/29/18 19:46 Chief Complaint: Chest Pain Stated Complaint: chest pain ED Provider: Kobi Nugent Discharge Problem: Pulmonary embolism, Chest pain, Back pain, Incidental pulmonary nodule Patient Disposition: Admitted As Inpatient Discharge Instructions Interventions: ED Discharge Assessment Last Done: 12/29/18 19:46 The scribe's documentation has been prepared under my direction and personally reviewed by me in its entirety. I confirm that the note above accurately reflects all work, treatment, procedures, and medical decision making performed by me.
[2018-12-30 04:12] LABS: Hematocrit (blood only) 38.3 % (37-47); Hemoglobin 12.5 g/dL (12.0-16.0); Immature Granulocytes # (auto) 0.02 K/uL (0.00-0.02); Immature Granulocytes % (auto) 0.2 %; Lymphocytes # (auto) 0.71 K/uL (1.2-3.4); Lymphocytes % (auto) 8.2 %; Mean Corpuscular Hemoglobin 30.8 pg (25-34); Mean Corpuscular Hgb Conc 32.6 g/dL (32-36); Mean Corpuscular Volume 94.3 fL (80-100); Mean Platelet Volume 10.5 fL (7.4-10.4); Monocytes # (auto) 0.27 K/uL (0.11-0.59); Monocytes % (auto) 3.1 %; Neutrophils # (auto) 7.69 K/uL (1.4-6.5); Neutrophils % (auto) 88.5 %; Platelet Count 288 K/uL (130-400); RDW Coefficient of Variation 13.4 % (11.5-14.5); RDW Standard Deviation 46.2 fL (36.4-46.3); Red Blood Count 4.06 M/uL (4.2-5.4); White Blood Count 8.69 K/uL (4.8-10.8)
[2018-12-30 04:30] LABS: BUN Creatinine Ratio 23.4 (10-20); Blood Urea Nitrogen 29 mg/dl (7-18); Calcium 8.5 mg/dl (8.5-10.1); Carbon Dioxide 23 mmol/L (21-32); Chloride 109 mmol/L (98-107); Creatinine Clr Calc Pharmacy 42.3 ml/min; Est GFR (African American) 49.3; Est GFR (Non-African American) 42.6; Glucose 138 mg/dl (70-99); Potassium 4.3 mmol/L (3.5-5.1); Sodium 140 mmol/L (136-145)
[2018-12-30 04:31] LABS: Partial Thromboplastin Ratio 2.6; Prothrombin Time 10.7 Seconds (9.0-12.0)
[2018-12-30 04:41] LABS: Partial Thromboplastin Time 70.5 Seconds (21.0-31.0)
[2018-12-30 04:42] LABS: Magnesium 2.2 mg/dl (1.8-2.4); Thyroid Stimulating Hormone 0.273 uIu/ml (0.300-4.500); Troponin I < 0.015 ng/ml (0-0.045)
[2018-12-30 04:55] LABS: T4 Free Thyroxine 0.96 ng/dl (0.8-1.6)
[2018-12-30] MEDS: LEVOTHYROXINE SODIUM 50 MCG TABLET PO SCH (05:43)
[2018-12-30] MEDS: ALBUT/IPRATROP 3MG/0.5MG NEB 3 ML VIAL NEB SCH ×4 (07:16→19:58)
[2018-12-30] MEDS: predniSONE 20 MG TAB PO SCH (08:01)
[2018-12-30] MEDS: SPIRONOLACTONE 25 MG TAB PO SCH (08:01)
[2018-12-30] MEDS: PARoxetine HCl 20 MG TAB PO SCH (08:02)
[2018-12-30] MEDS: METOPROLOL SUCC 25MG EXT REL TAB PO SCH (08:03)
[2018-12-30] MEDS: LISINOPRIL/HCTZ 20/12.5MG 1 TAB TAB PO SCH (08:05)
[2018-12-30] MEDS ORDERED: INFLUENZA VIRUS QUAD VACCINE 0.5 ML SYR IM ONE (09:00)
[2018-12-30] MEDS ORDERED: INFLUENZA ADMINISTRATION CHARGE ONE (09:00)
[2018-12-30 10:59] LABS: Partial Thromboplastin Ratio 3.1
[2018-12-30 11:18] LABS: Partial Thromboplastin Time 84.5 Seconds (21.0-31.0)
[2018-12-30] MEDS ORDERED: WARFARIN SOD 5 MG TAB PO SCH (16:00)
--- NOTE | 2018-12-30 17:08 | Hospitalist Progress Note ---
Date of Service December 30, 2018 Assessment & Plan (1) Pulmonary embolism: Sent from the patient's family physicians clinic with concern of EKG changes suggestive of possible pulmonary embolism Patient developed bandlike chest tightness, pain with taking deep breath for for 5 days, was seen at her family physician clinic -CTA:Small right lower lobe pulmonary embolus, possibly chronic. No evidence of pathologic adenopathy. No evidence of pneumonia. 12 x 7 mm solid left upper lobe pulmonary nodule which appears to be associated with an accessory fissure. A 3 month follow-up CT scan is recommended. No recent history of travel Patient is very active Family history of blood clots (+Mother) had 2 episodes after childbirth To personal history of blood clots, no other siblings or family members with history of blood clots - --Saturating well on room air Patient prefers to be on Coumadin for anticoagulation Has been on IV heparin bridge and Coumadin, Recommend hypercoagulable work up as outpatient-reference labs, patient's family physician should be able to follow-up test results and making recommendations as indicated Echo shows normal LV function, mild diastolic dysfunction, no evidence of cardiac strain Lower extremity Doppler ordered, shows no evidence of bilateral DVT there is a thrombosed superficial vein within the left popliteal fossa, which is less than 5 cm from popliteal vein junction, total length of the thrombus is 4.6 cm Asthma Exacerbation: 3 of chronic stable asthma, developed shortness of breath for last 2 to 3 days acid with chest pain Saturating well on room air Imaging studies no signs of consolidation Symptom has markedly improved, no wheeze, no rales no dyspnea on exertion, no hypoxia start on Prednisone, bronchodilators Sinus bradycardia Metoprolol decreased to 6.25 mg daily Continue beta-pal with holding parameters Left upper lobe pulmonary nodule 12 into 7 mm solid left upper lobe pulmonary nodule noted on CT scan No history of smoking Needs repeat CT chest in 3 months CKD III Creatinine at baseline Monitor renal function Avoid nephrotoxic agents as able Irritable bowel syndrome No acute issues Dicyclomine as needed Hypothyroidism Continue levothyroxine Dyslipidemia Continue pravastatin Hypertension Stable continue lisinopril, metoprolol Chronic rhinitis Continue Singulair, levocetirizine DVT Px: Heparin drip, Coumadin CODE STATUS Full code Disposition Discharge home in next 24-48 hours when INR is therapeutic Subjective No hypoxia, no orthopnea noted, Vitals stable Patient complaint of headache localized to left part of our ER, has resolved after Tylenol Having occasional pleuritic chest pain mostly localized to right lower chest wall, No tachypnea or tachycardia noted Tolerating IV heparin and Coumadin well no bleeding complication Refused to have additional pain medication except for Tylenol as needed for her pain symptoms Review of Systems Review of Systems: All systems reviewed & are unremarkable except as noted in HPI & below Physical Exam Constitutional: WD/WN, vitals as above no acute distress Eyes: PERRL, conjunctivae normal, anicteric sclerae ENMT: external ear and nose normal, oropharynx normal Neck: trachea midline, no thyromegaly Respiratory: normal respiratory effort, lungs clear to auscultation Cardiovascular: RRR, no murmur, no edema Gastrointestinal (Abdomen): normal bowel sounds, soft, nontender, no hepatosplenomegaly Musculoskeletal: no cyanosis or clubbing, extremities motor strength 5/5 Skin: no rashes, warm and dry Neurologic: PERRL, EOMI, accommodation nl, no face palsy, no dysarthria Psychiatric: A+Ox3, euthymic affect Results & Data Vital Signs (Past 12 Hours) Vital Signs Temp Pulse Pulse Resp BP Pulse Ox 12/30/18 15:35 78 16 94 12/30/18 15:26 36.7 C 80 16 136/66 92 12/30/18 15:21 81 12/30/18 11:14 61 16 93 12/30/18 11:13 36.6 C 60 19 151/67 H 95 12/30/18 07:16 64 18 96 12/30/18 06:00 36.7 C 58 L 18 160/72 H 93 (1) Pulmonary embolism Acute cor pulmonale presence: unspecified Chronicity: unspecified Pulmonary embolism type: unspecified Qualified Code(s): I26.99 - Other pulmonary embolism without acute cor pulmonale
[2018-12-30] MEDS: ACETAMINOPHEN 325 MG TAB PO PRN (17:49)
[2018-12-30] MEDS: HEPARIN SODIUM/DEXTROSE 25,000 UNITS/500 ML BAG IV SCH (17:50)
[2018-12-30 17:54] LABS: Partial Thromboplastin Ratio 2.4
[2018-12-30 17:59] LABS: Partial Thromboplastin Time 66.3 Seconds (21.0-31.0)
[2018-12-30] MEDS ORDERED: ALBUTEROL HFA 8 GM INHALER INH PRN (18:45)
[2018-12-30] MEDS: MONTELUKAST SODIUM 10 MG TABLET PO SCH (20:09)
[2018-12-30] MEDS: LORazepam 1 MG TAB PO PRN (20:09)
[2018-12-30] MEDS: FLUTICASONE/SALMETEROL 250/50 (ADVAIR) 14 PUFF/1 INHALER INH SCH (20:09)
[2018-12-30] MEDS: PRAVASTATIN SOD 10 MG TAB PO SCH (20:10)
[2018-12-30] MEDS ORDERED: CETIRIZINE HCL 10 MG TABLET PO SCH (21:00)
--- NOTE | 2018-12-30 21:22 | Ultrasound Report ---
BILATERAL LOWER EXTREMITY VENOUS DOPPLER HISTORY: rule out DVT /hx of PE COMPARISON STUDY: None. FINDINGS: No DVT within the right or left lower extremity. There is a right popliteal cyst is noted. Superficial gastrocnemius veins within the left calf with one of 2 veins thrombosed. A small left pop liteal cyst is noted. IMPRESSION: No DVT within the right or left lower extremity. There is a thrombosed superficial vein within the le ft popliteal fossa/calf. This is less than 5 cm from the popliteal vein junction. The total length of thrombus is 4.6 cm. Electronically signed by: Barney Roa M.D. 12/30/2018 9:20 PM
[2018-12-31 00:05] LABS: Partial Thromboplastin Ratio 2.9
[2018-12-31 00:07] LABS: Partial Thromboplastin Time 78.2 Seconds (21.0-31.0)
[2018-12-31] MEDS: LEVOTHYROXINE SODIUM 50 MCG TABLET PO SCH (05:58)
[2018-12-31] MEDS: ALBUT/IPRATROP 3MG/0.5MG NEB 3 ML VIAL NEB SCH (07:11)
[2018-12-31] MEDS: FLUTICASONE/SALMETEROL 250/50 (ADVAIR) 14 PUFF/1 INHALER INH SCH (07:39)
[2018-12-31] MEDS: PARoxetine HCl 20 MG TAB PO SCH (07:40)
[2018-12-31] MEDS: LISINOPRIL/HCTZ 20/12.5MG 1 TAB TAB PO SCH (07:41)
[2018-12-31] MEDS: SPIRONOLACTONE 25 MG TAB PO SCH (07:42)
[2018-12-31] MEDS: predniSONE 20 MG TAB PO SCH (07:44)
[2018-12-31] MEDS: METOPROLOL SUCC 25MG EXT REL TAB PO SCH (07:44)
[2018-12-31] MEDS: ACETAMINOPHEN 325 MG TAB PO PRN (07:48)
[2018-12-31 08:01] LABS: Partial Thromboplastin Ratio 2.6; Prothrombin Time 19.5 Seconds (9.0-12.0)
[2018-12-31 08:12] LABS: Partial Thromboplastin Time 70.8 Seconds (21.0-31.0)
[2018-12-31 08:18] VITALS: BP 135/71; PULSE 83; TEMP 97.9; O2SAT 90
[2018-12-31] MEDS ORDERED: CHOLECALCIFEROL 1,000 UNITS TAB PO SCH (09:00)
[2018-12-31 09:21] LABS: BUN Creatinine Ratio 26.9 (10-20); Calcium 9.1 mg/dl (8.5-10.1); Creatinine Clr Calc Pharmacy 51.7 ml/min; Est GFR (African American) 62.6; Potassium 4.3 mmol/L (3.5-5.1)
[2018-12-31 09:54] LABS: INR 2.1 (0.9-1.1); Prothrombin Time 20.3 Seconds (9.0-12.0)
--- NOTE | 2018-12-31 11:22 | Discharge Summary ---
Date of Service December 31, 2018 Admission HPI Per Admitting Provider Patient is a 78-year-old female with history of CKD III, irritable bowel syndrome, hypothyroidism, dyslipidemia, asthma, hypertension, chronic rhinitis and other problems presents with history of shortness of breath, left-sided chest pain, cough with intermittent expectoration. Patient has been using her inhaler more frequently secondary to worsening shortness of breath since 1 week duration. She started using prednisone 30 mg daily since 3 days which did not help with her symptoms. Also states having cough with intermittent clear expectoration associated with chest tightness and dyspnea on exertion. She n oted to have left-sided chest pain since yesterday which increases with movement, deep breathing, dull in nature intermittently radiating towards her right side. She denies being started on any antibiotics by her PCP. Denies any history of palpitations, orthopnea, PND, dizziness, pedal edema, diaphoresis, wheezing, hemoptysis, fever, chills, headache, weakness, nausea, vomiting, abdominal pain, blood in stools, diarrhea, dysuria, hematuria, recent travel, sick contact, recent change in medications. Chest CT is suggestive of small right lower lobe pulmonary embolus, possibly chronic; no evidence of pathologic adenopathy; no evidence of pneumonia; 12 until 7 mm solid left upper lobe pulmonary nodule. Principal Diagnosis PULMONARY EMBOLISM/BLOOD CLOT IN THE LUNGS Discharge Exam Constitutional WD/WN, vitals as above no acute distress Eyes PERRL, conjunctivae normal, anicteric sclerae ENMT external ear and nose normal, oropharynx normal Neck trachea midline, no thyromegaly Respiratory normal respiratory effort, lungs clear to auscultation Cardiovascular RRR, no murmur, no edema Gastrointestinal (Abdomen) normal bowel sounds, soft, nontender, no hepatosplenomegaly Musculoskeletal no cyanosis or clubbing, extremities motor strength 5/5 Skin no rashes, warm and dry Neurologic PERRL, EOMI, accommodation nl, no face palsy, no dysarthria Psychiatric A+Ox3, euthymic affect Discharge Data Allergies Allergy/AdvReac Type Severity Reaction Status Date / Time starch Allergy Unknown ORANGES Verified 12/29/18 13:52 GRAPEFRUIT-MOUTH IRRITATION Sulfa (Sulfonamide Allergy Unknown HIVES Verified 12/29/18 13:52 Antibiotics) [place] And Derivatives Allergy Verified 12/29/18 13:52 pineapple Allergy Verified 12/29/18 13:52 Consultations 12/29/18 17:08 ED Decision to Admit Stat 12/29/18 20:40 Consult Case Management - Discharge Planning Routine Ordered Studies 12/29/18 15:28 CT angio chest PE protocol Stat 12/30/18 18:21 US venous doppler LE ALEXIS Routine Hospital Course (1) Pulmonary embolism: Sent from the patient's family physicians clinic with concern of EKG changes suggestive of possible pulmonary embolism Patient developed bandlike chest tightness, pain with taking deep breath for for 5 days, was seen at her family physician clinic -CTA:Small right lower lobe pulmonary embolus, possibly chronic. No evidence of pathologic adenopathy. No evidence of pneumonia. 12 x 7 mm solid left upper lobe pulmonary nodule which appears to be associated with an accessory fissure. A 3 month follow-up CT scan is recommended. No recent history of travel Patient is very active Family history of blood clots (+Mother) had 2 episodes after childbirth To personal history of blood clots, no other siblings or family members with history of blood clots - --Saturating well on room air Patient prefers to be on Coumadin for anticoagulation Has been on IV heparin bridge and Coumadin, INR 2: Therapeutic today IV heparin discontinued, Patient is stable to discharge home with p.o. Coumadin only Will be followed at coagulation clinic with Ashly She will need hypercoagulable work up as outpatient-reference labs, patient's family physician should be able to follow-up test results and making recommendations as indicated Echo shows normal LV function, mild diastolic dysfunction, no evidence of cardiac strain Lower extremity Doppler ordered, shows no evidence of bilateral DVT there is a thrombosed superficial vein within the left popliteal fossa, which is less than 5 cm from popliteal vein junction, total length of the thrombus is 4.6 cm Reports of the exam updated to patient Stable to be discharged home Prescription for hypercoagulable lab work given Asthma Exacerbation: Completely resolved, no cough no wheeze no shortness of breath no dyspnea on exertion History of of chronic stable asthma, developed shortness of breath for last 2 to 3 days associated with chest pain Saturating well on room air Imaging studies no signs of consolidation Symptom has markedly improved, no wheeze, no rales no dyspnea on exertion, no hypoxia Able to be discharged home with outpatient meds Sinus bradycardia Metoprolol decreased to 6.25 mg daily Continue beta-pal with holding parameters Left upper lobe pulmonary nodule 12 into 7 mm solid left upper lobe pulmonary nodule noted on CT scan No history of smoking Needs repeat CT chest in 3 months CKD III Creatinine at baseline Monitor renal function Avoid nephrotoxic agents as able Irritable bowel syndrome No acute issues Dicyclomine as needed Hypothyroidism Continue levothyroxine Dyslipidemia Continue pravastatin Hypertension Stable continue lisinopril, metoprolol Chronic rhinitis Continue Singulair, levocetirizine DVT Px: Heparin drip, Coumadin CODE STATUS Full code Disposition Stable to be discharged home today Total Time Total Time Spent Total Time Spent (In Minutes): Approximately 40 minutes Total Time Includes: Examination of the Patient, Discharge Planning and Medication Reconciliation Discharge Plan Discharge Items Patient Disposition: Home - Self-Care Reason For Visit: CHEST PAIN Discharge Diagnosis: PULMONARY EMBOLISM/BLOOD CLOT IN THE LUNGS Activity: Resume your previous activity Non-emergency contact: Primary Care Provider Call non-emergency contact if: you have any medication questions Follow-up/Referrals: Ellen Villafana MD [Primary Care Provider] - Diet: Heart Healthy Ambulatory Orders: Prothrombin Time INR (Routine) Timeframe: 20190103 Location: Determined by Patient Ordered By: Valeria Rutledge Antiphospholipid Antibodies (Routine) Location: Determined by Patient Ordered By: Valeria Rutledge Anti-Thrombin III Activity (Routine) Location: Determined by Patient Ordered By: Valeria Rutledge Factor V Leiden Mutation (Routine) Location: Determined by Patient Ordered By: Valeria Rutledge Lupus Anticoagulant (Routine) Location: Determined by Patient Ordered By: Valeria Rutledge Factor 2(Prothrombin)Mut (Routine) Location: Determined by Patient Ordered By: Valeria Rutledge Add Attending Provider Instructions: HOSPITAL FOLLOW-UP WITH DR. LIANG ON THURSDAY, JANUARY 03, 2019 AT 12:25 PM PLEASE HAVE LAB DRAW: PT/INR ON 01/03/2019 YOU NEED TO HAVE CONTINUED FOLLOW-UP WITH COUMADIN CLINIC FOR FURTHER MONITORING OF YOUR LAB WORK: PT/INR MONITORING AND COUMADIN DOSE ADJUSTMENTS IF NEEDED CT CHEST WITH CONTRAST IN 3 MONTHS FOR EVALUATION OF PULMONARY NODULE CT chest with contrast: On 12/29/2018: 12X 7 MM SOLID LEFT UPPER LOBE PULMONARY NODULE WHICH APPEARS TO BE ASSOCIATED WITH AN ACCESSORY FISSURE. 3-MONTH FOLLOW-UP CT SCAN IS RECOMMENDED NEW MEDICATIONS: You are discharged on Coumadin 5 mg by mouth daily: Blood thinner recommended for blood clot noted in your lungs(right lower lobe) This is a medication which increases your risk of bleeding, please notify your family physician if you notice dark stool/black color stool (sign of possible bleeding in stomach) YOU WILL NEED FURTHER LAB TESTING, TO DETERMINE RISK OF FUTURE BLOOD CLOTS Test use to help diagnose inherited hypercoagulable (high risk for blood clot )state include: 1. Genetic test: Including factor V Leiden(activated protein C resistance) and prothrombin gene mutation([id number]) 2. Antithrombin activity 3. Protein C activity 4. Protein S activity 5. Fasting plasma homocystine level 6. Antiphospholipid antibody Pending Studies at Discharge: Yes Studies:: CT chest with contrast: In 3 months for assessment of 12x7 millimeters solid left upper lobe pulmonary nodule noted on 12/29/2018 Lab work: PT/INR check in 1 week Hypercoagulable panel: Factor V Leiden Prothrombin gene mutation Antithrombin activity Protein C activity Protein S activity Fasting plasma homocystine level Stand-Alone Forms: Call Back Authorization, [facility] Medications and DC Order Prescriptions: New warfarin [Coumadin] 5 mg tablet 5 mg PO DAILY Qty: 30 RF: 3 Continued ipratropium-albuterol 0.5 mg-3 mg(2.5 mg base)/3 mL Solution For Nebulization 1 dose INHALATION Q6 PRN (Reason: Shortness Of Breath Or Wheezing) RF: 0 spironolactone [Aldactone] 25 mg tablet 12.5 mg PO DAILY RF: 0 pravastatin 10 mg tablet 10 mg PO QPM RF: 0 ranitidine HCl [Zantac 75] 75 mg Tablet 75 mg PO BID RF: 0 levothyroxine [Synthroid] 50 mcg tablet 50 mcg PO DAILY RF: 0 paroxetine HCl [Paxil] 30 mg tablet 30 mg PO QAM RF: 0 albuterol sulfate 90 mcg/actuation Hfa Aerosol Inhaler 2 puff INHALATION Q6H PRN (Reason: Shortness Of Breath Or Wheezing) RF: 0 cholecalciferol (vitamin D3) [Vitamin D3] 1,000 unit Tablet 1,000 unit PO DAILY RF: 0 levocetirizine [Xyzal] 5 mg tablet 5 mg PO QPM RF: 0 Dulera 200-5 mcg/actuation HFA aerosol inhaler 2 puff Inhalation BID RF: 0 metoprolol succinate [Toprol XL] 25 mg Tablet Extended Release 24 Hr 12.5 mg PO DAILY RF: 0 dicyclomine 10 mg Capsule 10 mg PO QID PRN (Reason: Cramps) RF: 0 lorazepam 1 mg tablet 0.5 mg PO BID PRN (Reason: Anxiety) RF: 0 lisinopril-hydrochlorothiazide 20-12.5 mg Tablet 0.5 tab PO DAILY RF: 0 alendronate 70 mg Tablet 70 mg PO Q7D RF: 0 montelukast [Singulair] 10 mg Tablet 10 mg PO PM RF: 0 Discharge Orders: Discharge Order (Routine); Ordered 12/31/18 Ordered By: Valeria Rutledge Admission Data Admit Date/Time: 12/31/18 08:12 Attending Provider: Valeria Rutledge Admit Provider: Isrrael Armstrong Primary Care Provider: Ellen Villafana Other Providers: Isrrael Armstrong Other Interventions: Discharge Summary Assessment (RN) Last Done: 12/31/18 09:00 DC Date/Time DO NOT enter until pt leaves facility: 12/31/18 11:12
[2018-12-31] MEDS ORDERED: WARFARIN SOD 7.5 MG TAB PO SCH (16:00)
== END 2018-12-31 11:12 | disposition home or self-care (01) | DRG 176 ==
LOC: 2N 12:44 → ED 12:44 → SUATTDRO 18:54 → 2N 19:46

== ENCOUNTER 2022-04-14 11:30 | Inpatient (IN) ==
--- NOTE | 2022-04-14 11:40 | Emergency Department Note ---
Impression & Plan Hypoxia, Chest pain, Moderate persistent asthma, Shortness of breath ED Provider Note NAME: ZOYA GILL AGE: 82 SEX: F : 1940 ARRIVES VIA: Ambulance INFORMANT: Patient, ED PROVIDER(S): Pete Handley MD CHIEF COMPLAINT: Shortness of breath, chest pain MEDICAL DECISION MAKING: Patient presented due to concern for shortness of breath and chest pain. Blood work is obtained along with an EKG troponin and chest x-ray along with PT/INR. Patient's EKG looks grossly unremarkable. There is motion artifact in V5. Patient's EKG does show slight elevation in lead III but noncontiguous leads. The patient did have a known Q waves seen on her prior EKG from December 30, 2018. Chest x-ray is clear. Patient started to show a white count of 18. Procalcitonin was ordered. Hemoglobin 11.8. Platelet count is unremarkable. Kidney function is normal. Patient is supratherapeutic with her INR 3.6. Troponin is not elevated. COVID flu and RSV negative. Did reassess the patient the patient did have some mild wheezing. The patient was ordered steroids mag and a neb treatment. I did speak with the on-call hospitalist and the patient was admitted to the medicine service. I do believe that the patient would become hypoxic with an ambulatory trial given her low baseline oxygen of 90% at rest. Patient was ordered a dose of cefepime given the patient's leukocytosis. Patient was noted to be hypoxemic after neb treatment 87% but was satting well on 2 L nasal cannula. Critical Care: I have personally spent 36 minutes of critical care time in direct management of this patient. This includes bedside care, interpretation of diagnostic studies, and testing, discussion with consultants, patient, and family members, and other require inpatient management activities. This 36 minutes is in excess of all separately billable procedures. Prior /Outside records reviewed: None Differential diagnosis: Cardiac ischemia, aortic dissection, pulmonary embolism, pneumothorax, pneumonia, pericarditis, myocarditis, esophageal rupture, GERD, cholecystitis, pancreatitis, musculoskeletal, as well as other pathologies. Diagnostics, as interpreted by me: ECG: Normal sinus rhythm, rate of 87, normal intervals normal axis T wave inversion with mild elevation in lead III but noncontiguous leads, elevation may be slight change from comparison but Q wave appears to be old from comparison December 30, 2018. Cardiac monitoring: An order was placed for continuous cardiac monitoring. The monitor shows a rate of 82 with sinus rhythm. Patient was placed on pulse oximetry Medical decision rules: None Imaging studies: See below HPI: Patient presents due to concern for shortness of breath and chest pain. The patient does not complain of obvious exertional symptoms with regard to chest pains but has had exertional shortness of breath. No history of asthma the patient did take her typical medications but without significant improvement in symptoms. Patient was seen by EMS and placed on supplemental nasal cannula oxygen as patient was at 90%. Patient does complain of bandlike chest pain over the top of the chest and middle of the chest. Nonradiating. Patient denies any leg swelling or calf pain. Patient does have a history of PE does take Coumadin. Patient denies any falls or trauma. The patient does have occasional cough but states that it is been relatively nonproductive. No recent travel PAST MEDICAL HISTORY: See Below PAST SURGICAL HISTORY: See Below SOCIAL HISTORY: See Below HOME MEDICATIONS: See Below ALLERGIES: See Below VITALS: See Below PHYSICAL EXAMINATION: GENERAL: NAD, wearing a mask, non-toxic. Nasal cannula in place. EYE EXAM: Normal conjunctiva. PERRL, no anisocoria and EOM's grossly intact w/o pain. NECK: Supple, no nuchal rigidity, no adenopathy, non-tender. No signs of meningismus. FROM of the neck with good chin to chest and neck extension. No stridor. LUNGS: Clear to auscultation. Normal chest wall mechanics. HEART: NSR, no MRG. ABDOMEN: Abdomen soft, non-tender, normo-active bowel sounds, no masses, no rebound or guarding. BACK: No CVA TTP. SKIN: No rashes and no bruising. UPPER EXTREMITIES: Upper extremities are grossly normal. LOWER EXTREMITIES: Grossly normal, no edema. Negative Homans' sign bilaterally. NEURO EXAM: A&O x3, cranial nerves II-XII grossly intact, normal speech, moves all 4 extremities. Past Med/Surg History Medical History Aneurysm of right renal artery Chronic gout CKD (chronic kidney disease), stage III Dyslipidemia History of pulmonary embolism Hypertension Hypothyroidism IBS (irritable bowel syndrome) Moderate persistent asthma Surgical History History of cholecystectomy Family History Father Hypertension Mother Stroke Other Family history non-contributory Social History Smoking Status: Never smoker Second Hand Exposure: Yes; Hx Alcohol Use: Yes Hx Substance Use: No Preferred Language: Nepalese Communication Ability: Effective Furniture Mover Required: No Beliefs That Will Affect Care: None marital status: Current Living Situation: Spouse current occupational status: retired Other Information That Helps Us Care for You: No Feels Safe at Home: Yes Safety Concerns: Feels Safe At This Time Assistive Devices: None Allergies Allergies Allergy/AdvReac Type Severity Reaction Status Date / Time Sulfa (Sulfonamide Allergy Intermediate HIVES Verified 04/14/22 15:46 Antibiotics) Murray And Derivatives AdvReac Intermediate MOUTH Verified 04/14/22 15:46 IRRITATION WITH FRESH FRUIT pineapple AdvReac Intermediate MOUTH Verified 04/14/22 15:46 IRRITATION WITH FRESH FRUIT Home Meds Home Medications Medication Instructions Recorded Confirmed albuterol sulfate 90 mcg/actuation 2 puff inhalation Q6H PRN 02/20/18 04/14/22 aerosol inhaler Shortness Of Breath Or Wheezing cholecalciferol (vitamin D3) 25 1,000 unit PO DAILY 02/20/18 04/14/22 mcg (1,000 unit) tablet (Vitamin D3) dicyclomine 10 mg capsule 10 mg PO QID PRN Cramps 02/20/18 04/14/22 ipratropium 0.5 mg-albuterol 3 mg 1 dose inhalation Q6 PRN Shortness 02/20/18 04/14/22 (2.5 mg base)/3 mL nebulization Of Breath Or Wheezing soln levocetirizine 5 mg tablet (Xyzal) 5 mg PO QPM 02/20/18 04/14/22 metoprolol succinate 25 mg 12.5 mg PO DAILY 02/20/18 04/14/22 tablet,extended release 24 hr (Toprol XL) paroxetine HCl 30 mg tablet (Paxil) 30 mg PO QAM 02/20/18 04/14/22 pravastatin 10 mg tablet 10 mg PO QPM 02/20/18 04/14/22 spironolactone 25 mg tablet 12.5 mg PO DAILY 02/20/18 04/14/22 (Aldactone) lorazepam 1 mg tablet 1 mg PO TID PRN Anxiety 02/24/18 04/14/22 lisinopril 20 2 tab PO DAILY 12/29/18 04/14/22 mg-hydrochlorothiazide 12.5 mg tablet montelukast 10 mg tablet 10 mg PO PM 12/29/18 04/14/22 (Singulair) allopurinol 100 mg tablet 200 mg PO DAILY 04/14/22 04/14/22 levothyroxine 75 mcg tablet 75 mcg PO DAILY 04/14/22 04/14/22 warfarin 2.5 mg tablet 1.25 mg PO WE 04/14/22 04/14/22 warfarin 2.5 mg tablet 2.5 mg PO SUMOTUTHFRSA 04/14/22 04/14/22 Results & Data (ED) Vital Signs Vital Signs - 24 hr 04/14/22 12:03 04/14/22 12:03 04/14/22 12:38 Temperature 37.0 C Temperature Source Oral Pulse Rate 87 Respiratory Rate 20 Respiratory Effort / Characteristics Spontaneous SOB on Exertion Respiratory Depth Normal Normal Respiratory Pattern Regular Blood Pressure 164/87 H Blood Pressure Mean 112 Pulse Oximetry 90 90 Oxygen Delivery Method Room Air Room Air Sepsis Recent Fever Within 48 Hours No Sepsis New/Unexplained Change in Mental Status N/A Sepsis Action Taken by Nursing No Action Required Home Medications Current Medication List: was personally reviewed by me Laboratory Data Attestation: I reviewed the patient's lab results. 04/14/22 12:19 04/14/22 12:19 Lab Results 04/14/22 04/14/22 04/14/22 Range/Units 12:19 12:19 12:19 WBC 18.20 H (4.8-10.8) K/ul RBC 3.69 L (3.93-5.22) M/uL Hgb 11.8 L (12.0-16.0) g/dl Hct 34.5 (34.1-44.9) % MCV 93.5 (80.0-100.0) fL MCH 32.0 (25.0-34.0) pg MCHC 34.2 (32.0-36.0) g/dL RDW Std Deviation 46.9 H (36.4-46.3) fL RDW Coeff of Madhuri 13.8 (11.5-14.5) % Plt Count 311 (130-400) K/uL MPV 10.5 (9.4-12.3) fL Immature Gran % (Auto) 0.5 % Neut % (Auto) 85.2 % Lymph % (Auto) 8.5 % [place] % (Auto) 4.9 % Eos % (Auto) 0.4 % Baso % (Auto) 0.5 % Neut # (Auto) 15.51 H (1.4-6.5) K/uL Lymph # (Auto) 1.54 (1.2-3.4) K/uL [place] # (Auto) 0.89 H (0.24-0.82) K/uL Eos # (Auto) 0.07 (0-0.50) K/uL Baso # (Auto) 0.09 (0-0.2) K/uL Immature Gran # (Auto) 0.10 H (0.00-0.02) K/uL PT 35.5 H (9.0-12.0) Seconds INR 3.6 H (0.9-1.1) APTT 46.7 H* (21.0-31.0) Seconds PTT Ratio 1.7 Sodium 136 (136-145) mmol/L Potassium 3.6 (3.5-5.1) mmol/L Chloride 103 (98-107) mmol/L Carbon Dioxide 25 (21-32) mmol/L Anion Gap 8 (3-11) BUN 15 (6-23) mg/dl Creatinine 0.91 (0.6-1.2) mg/dl Est Cr Clr Drug Dosing 54.8 ml/min Est GFR ( Amer) 69.1 ml/min Est GFR (Non-Af Amer) 59.6 ml/min BUN/Creatinine Ratio 16.5 (10-20) Glucose 109 H (70-99(Fasting)) mg/dl Calcium 8.8 (8.5-10.1) mg/dl Total Bilirubin 0.6 (0.2-1.0) mg/dl AST 18 (13-39) U/L ALT 12 (7-52) U/L Alkaline Phosphatase 47 (34-104) U/L Troponin I High Sens 11.5 (0-14) pg/ml Total Protein 6.2 (6.0-8.3) gm/dl Albumin 3.5 (3.4-5.0) gm/dl Globulin 2.7 (2.5-4.0) gm/dl Albumin/Globulin Ratio 1.3 (0.9-2) Lipase 18 (11-82) U/L Procalcitonin (0-0.5) ng/ml Urine Color Urine Appearance (Clear) Urine pH (4.5-7.5) Ur Specific [place] (1.000-1.030) Urine Protein (Negative) Urine Glucose (UA) (Negative) Urine Ketones (Negative) Urine Blood (Negative) Urine Nitrite (Negative) Urine Bilirubin (Negative) Urine Urobilinogen (Negative) Ur Leukocyte Esterase (Negative) SARS-CoV-2 (PCR) (Negative) Influenza Type A (PCR) (Neg) Influenza Type B (PCR) (Neg) RSV (RT-PCR) (Neg) 04/14/22 04/14/22 04/14/22 Range/Units 12:19 12:31 14:35 WBC (4.8-10.8) K/ul RBC (3.93-5.22) M/uL Hgb (12.0-16.0) g/dl Hct (34.1-44.9) % MCV (80.0-100.0) fL MCH (25.0-34.0) pg MCHC (32.0-36.0) g/dL RDW Std Deviation (36.4-46.3) fL RDW Coeff of Madhuri (11.5-14.5) % Plt Count (130-400) K/uL MPV (9.4-12.3) fL Immature Gran % (Auto) % Neut % (Auto) % Lymph % (Auto) % [place] % (Auto) % Eos % (Auto) % Baso % (Auto) % Neut # (Auto) (1.4-6.5) K/uL Lymph # (Auto) (1.2-3.4) K/uL [place] # (Auto) (0.24-0.82) K/uL Eos # (Auto) (0-0.50) K/uL Baso # (Auto) (0-0.2) K/uL Immature Gran # (Auto) (0.00-0.02) K/uL PT (9.0-12.0) Seconds INR (0.9-1.1) APTT (21.0-31.0) Seconds PTT Ratio Sodium (136-145) mmol/L Potassium (3.5-5.1) mmol/L Chloride (98-107) mmol/L Carbon Dioxide (21-32) mmol/L Anion Gap (3-11) BUN (6-23) mg/dl Creatinine (0.6-1.2) mg/dl Est Cr Clr Drug Dosing ml/min Est GFR ( Amer) ml/min Est GFR (Non-Af Amer) ml/min BUN/Creatinine Ratio (10-20) Glucose (70-99(Fasting)) mg/dl Calcium (8.5-10.1) mg/dl Total Bilirubin (0.2-1.0) mg/dl AST (13-39) U/L ALT (7-52) U/L Alkaline Phosphatase (34-104) U/L Troponin I High Sens (0-14) pg/ml Total Protein (6.0-8.3) gm/dl Albumin (3.4-5.0) gm/dl Globulin (2.5-4.0) gm/dl Albumin/Globulin Ratio (0.9-2) Lipase (11-82) U/L Procalcitonin < 0.05 (0-0.5) ng/ml Urine Color Yellow Urine Appearance Clear (Clear) Urine pH 5.5 (4.5-7.5) Ur Specific [place] 1.015 (1.000-1.030) Urine Protein Negative (Negative) Urine Glucose (UA) Negative (Negative) Urine Ketones Negative (Negative) Urine Blood Negative (Negative) Urine Nitrite Negative (Negative) Urine Bilirubin Negative (Negative) Urine Urobilinogen Negative (Negative) Ur Leukocyte Esterase Negative (Negative) SARS-CoV-2 (PCR) NEGATIVE (Negative) Influenza Type A (PCR) Negative (Neg) Influenza Type B (PCR) Negative (Neg) RSV (RT-PCR) Negative (Neg) Administered Medications Acetaminophen (Acetaminophen 500 Mg Tab) 1,000 mg PO Q8H DEANNE Stop: 05/14/22 22:59 Last Admin: 04/15/22 15:25 Dose: 1,000 mg Documented By: Admin: 04/15/22 08:22 Dose: 1,000 mg Documented By: Admin: 04/14/22 22:25 Dose: 1,000 mg Documented By: MERLIN Allopurinol (Allopurinol 100 Mg Tab) 200 mg PO DAILY DEANNE Stop: 05/15/22 08:59 Last Admin: 04/15/22 08:23 Dose: 200 mg Documented By: PATRICIA Cetirizine HCl (Cetirizine Hcl 10 Mg Tablet) 5 mg PO QPM DEANNE Stop: 05/14/22 20:59 Last Admin: 04/14/22 21:16 Dose: 5 mg Documented By: NANCY Lisinopril/HCTZ (Lisinopril/Hctz 20/12.5mg 1 Tab Tab) 2 tab PO DAILY DEANNE Stop: 05/15/22 08:59 Last Admin: 04/15/22 08:23 Dose: 2 tab Documented By: PATRICIA Levothyroxine Sodium (Levothyroxine Sodium 75 Mcg Tablet) 75 mcg PO DAILYBB DEANNE Stop: 05/15/22 06:29 Last Admin: 04/15/22 05:34 Dose: 75 mcg Documented By: MERLIN Lidocaine (Lidocaine 5% 1 Patch) 1 patch TD Q24H DEANNE Stop: 05/14/22 20:14 Last Admin: 04/15/22 08:24 Dose: 1 patch Documented By: Admin: 04/14/22 20:21 Dose: 1 patch Documented By: NANCY Metoprolol Succinate (Metoprolol Succ 25mg Ext Rel Tab) 12.5 mg PO DAILY DEANNE Stop: 05/15/22 08:59 Last Admin: 04/15/22 08:23 Dose: 12.5 mg Documented By: PATRICIA Miscellaneous (Remove Lidoderm Patch) 1 each N/A DAILY@0815 DEANNE Stop: 05/15/22 08:14 Last Admin: 04/15/22 08:24 Dose: 1 each Documented By: PATRICIA Montelukast Sodium (Montelukast Sodium 10 Mg Tablet) 10 mg PO PM DEANNE Stop: 05/14/22 20:59 Last Admin: 04/14/22 21:16 Dose: 10 mg Documented By: NANCY Paroxetine HCl (Paroxetine Hcl 10 Mg Tab) 30 mg PO QAM DEANNE Stop: 05/15/22 08:59 Last Admin: 04/15/22 08:24 Dose: 30 mg Documented By: CMV Pravastatin Sodium (Pravastatin Sod 10 Mg Tab) 10 mg PO QPM DEANNE Stop: 05/14/22 20:59 Last Admin: 04/14/22 21:16 Dose: 10 mg Documented By: NANCY Prednisone (Prednisone 20 Mg Tab) 40 mg PO DAILY DEANNE Stop: 05/15/22 08:59 Last Admin: 04/15/22 08:23 Dose: 40 mg Documented By: CMV Spironolactone (Spironolactone 12.5 Mg Tab) 12.5 mg PO DAILY DEANNE Stop: 05/15/22 08:59 Last Admin: 04/15/22 08:23 Dose: 12.5 mg Documented By: CMV Discontinued Medications Acetaminophen (Acetaminophen 500 Mg Tab) 1,000 mg PO NOW STA Stop: 04/14/22 14:15 Last Admin: 04/14/22 14:52 Dose: 1,000 mg Documented By: ANGELINE Al Hydrox/Mg Hydrox/Simethicone (Gi Cocktail Ed Use) 1 dose PO ONE ONE Stop: 04/14/22 15:46 Last Admin: 04/14/22 16:08 Dose: 1 dose Documented By: ANGELINE Albuterol (Albuterol 0.083% Nebu Soln 3 Ml Vial) 2.5 mg NEB NOW STA; Protocol Stop: 04/14/22 13:57 Last Admin: 04/14/22 14:33 Dose: 2.5 mg Documented By: ANGELINE Magnesium Sulfate/Dextrose (Magnesium Sulfate / D5w) 1 gm in 100 mls @ 100 mls/hr IV NOW STA Stop: 04/14/22 14:55 Last Infusion: 04/14/22 15:36 Dose: 0 mls/hr Documented By: Admin: 04/14/22 14:33 Dose: 100 mls/hr Documented By: ANGELINE Cefepime HCl (Maxipime) 2,000 mg in 20 mls @ 5 mls/min IV NOW STA; Protocol Stop: 04/14/22 13:59 Last Admin: 04/14/22 14:33 Dose: 5 mls/min Documented By: ANGELINE Ioversol (Optiray 320 500ml) 115 ml IV ONCE ONE Stop: 04/14/22 15:51 Last Admin: 04/14/22 15:52 Dose: 115 ml Documented By: OSCAR Lidocaine (Lidocaine 5% 1 Patch) 2 patch TD QAM DEANNE Stop: 05/14/22 18:07 Last Admin: 04/14/22 20:55 Dose: Not Given Documented By: NANCY Methylprednisolone (Methylprednisolone 125 Mg/2 Ml Vial) 60 mg IV NOW STA Stop: 04/14/22 13:57 Last Admin: 04/14/22 14:33 Dose: 60 mg Documented By: ANGELINE Tramadol HCl (Tramadol Hcl 50 Mg Tablet) 50 mg PO NOW STA Stop: 04/14/22 15:34 Last Admin: 04/14/22 16:08 Dose: 50 mg Documented By: ANGELINE Tramadol HCl (Tramadol Hcl 50 Mg Tablet) 50 mg PO NOW STA Stop: 04/14/22 20:03 Last Admin: 04/14/22 20:21 Dose: 50 mg Documented By: NANCY Imaging Data Radiologist's Impression: Chest X-Ray 04/14/22 11:47 XR chest 1V portable HISTORY: 82 years-old Female Chest pain, nonspecific acute chest pain COMPARISON: Chest radiograph 12/29/2018 TECHNIQUE: AP view of the chest FINDINGS: Cardiomediastinal and hilar silhouettes are within normal limits. Atherosclerosis of the aorta. No pneumothorax, large pleural effusion or overt pulmonary edema. Mild linear scarring present atelectasis of the lateral left lung base. Degenerative changes of the shoulders and spine. IMPRESSION: No acute process. ACT 112: Negative or not required by law. The above report was generated using voice recognition software. It may contain grammatical, syntax or spelling errors. Electronically signed by: Chris Carrillo M.D. 04/14/2022 12:13 PM Discharge Plan Visit Data Chief Complaint: Shortness of Breath/Dyspnea Stated Complaint: SOB, CHEST PAIN ED Provider: Pete Handley Discharge Problem: Hypoxia, Chest pain, Moderate persistent asthma, Shortness of breath Patient Disposition: Admitted As Inpatient Discharge Instructions Interventions: ED Discharge Assessment Last Done: 04/14/22 21:33
--- NOTE | 2022-04-14 12:15 | XRay Report ---
XR chest 1V portable HISTORY: 82 years-old Female Chest pain, nonspecific acute chest pain COMPARISON: Chest radiograph 12/29/2018 TECHNIQUE: AP view of the chest FINDINGS: Cardiomediastinal and hilar silhouettes are within normal limits. Atherosclerosis of the aorta. No pn eumothorax, large pleural effusion or overt pulmonary edema. Mild linear scarring present atelectasis of the lateral left lung base. Degenerative changes of the shoulders and spine. IMPRESSION: No acute process. ACT 112: Negative or not required by law. The above report was generated using voice recognition software. It may contain grammatical, syntax o r spelling errors. Electronically signed by: Chris Carrillo M.D. 04/14/2022 12:13 PM
[2022-04-14 12:39] LABS: Basophils # (auto) 0.09 K/uL (0-0.2); Basophils % (auto) 0.5 %; Eosinophils # (auto) 0.07 K/uL (0-0.50); Eosinophils % (auto) 0.4 %; Hematocrit (blood only) 34.5 % (34.1-44.9); Hemoglobin 11.8 g/dl (12.0-16.0); Immature Granulocytes % (auto) 0.5 %; Lymphocytes # (auto) 1.54 K/uL (1.2-3.4); Lymphocytes % (auto) 8.5 %; Mean Corpuscular Hgb Conc 34.2 g/dL (32.0-36.0); Mean Corpuscular Volume 93.5 fL (80.0-100.0); Mean Platelet Volume 10.5 fL (9.4-12.3); Monocytes # (auto) 0.89 K/uL (0.24-0.82); Monocytes % (auto) 4.9 %; Neutrophils # (auto) 15.51 K/uL (1.4-6.5); Neutrophils % (auto) 85.2 %; Platelet Count 311 K/uL (130-400); RDW Coefficient of Variation 13.8 % (11.5-14.5); RDW Standard Deviation 46.9 fL (36.4-46.3); Red Blood Count 3.69 M/uL (3.93-5.22)
[2022-04-14 13:01] LABS: Albumin Globulin Ratio 1.3 (0.9-2); Albumin Level 3.5 gm/dl (3.4-5.0); BUN Creatinine Ratio 16.5 (10-20); Bilirubin,Total 0.6 mg/dl (0.2-1.0); Calcium 8.8 mg/dl (8.5-10.1); Creatinine Clr Calc Pharmacy 54.8 ml/min; Est GFR (African American) 69.1 ml/min; Est GFR (Non-African American) 59.6 ml/min; Globulin 2.7 gm/dl (2.5-4.0); Potassium 3.6 mmol/L (3.5-5.1); Total Protein 6.2 gm/dl (6.0-8.3)
[2022-04-14 13:04] LABS: INR 3.6 (0.9-1.1); Partial Thromboplastin Ratio 1.7; Prothrombin Time 35.5 Seconds (9.0-12.0)
[2022-04-14 13:06] LABS: Troponin I High Sensitivity 11.5 pg/ml (0-14)
[2022-04-14 13:22] LABS: Partial Thromboplastin Time 46.7 Seconds (21.0-31.0)
[2022-04-14 13:26] LABS: Influenza A virus by PCR Negative (Neg); Influenza B virus by PCR Negative (Neg); RSV by PCR Negative (Neg); SARS CoV2 RNA(COVID-19) Ceph NEGATIVE (Negative)
[2022-04-14] MEDS ORDERED: CEFEPIME 2,000 MG/20 ML VIAL IV STA (13:56)
[2022-04-14] MEDS ORDERED: methylPREDNISolone 125 MG/2 ML VIAL IV STA (13:56)
[2022-04-14] MEDS ORDERED: MAGNESIUM SULFATE / D5W 1 GM/100 ML BAG IV STA (13:56)
[2022-04-14] MEDS ORDERED: ALBUTEROL 0.083% NEBU SOLN 3 ML VIAL NEB STA (13:56)
[2022-04-14] MEDS ORDERED: ACETAMINOPHEN 500 MG TAB PO STA (14:14)
[2022-04-14] MEDS ORDERED: traMADol HCL 50 MG TABLET PO STA ×2 (15:33→20:02)
[2022-04-14] MEDS ORDERED: GI COCKTAIL ED USE PO ONE (15:45)
[2022-04-14] MEDS ORDERED: OPTIRAY 320 500ml IV ONE (15:50)
[2022-04-14] MEDS ORDERED: ALUMINUM/MAGNESIUM SUSP 18 ML, LIDOCAINE VISCOUS 2% SOLN 6 ML, BARCODE IDENTIFIER 1 EACH PO ONE (16:00)
--- NOTE | 2022-04-14 16:32 | CT Scan Report ---
CT angio chest PE protocol CLINICAL HISTORY: PE TECHNIQUE: Multidetector row helical CT of the chest was performed with angiographic protocol. Guerrero l and sagittal reformations were obtained. Coronal and sagittal MIPS were obtained from the axial roxann a set and were submitted for review. Automated dose lowering techniques and/or adjustment according to patient size were utilized for this exam. CT DOSE: 602.32 mGy.cm Comparison: None available at the time of this dictation. FINDINGS: Lungs and pleura: Atelectasis versus scarring is seen in the dependent portions of the lungs. Heart and pericardium: Heart size is normal. No pericardial effusion. Vessels: No evidence of pulmonary embolism. Mild atherosclerotic disease is seen in the coronary diane brandie. Mediastinum and sandy: Unremarkable. Chest wall and lower neck: Unremarkable. Abdomen: A hiatal hernia is seen. Patient is status post cholecystectomy. There is a left-sided hepat ic cyst measuring 15 mm in diameter. Bones: Degenerative changes in the thoracic spine. IMPRESSION: No evidence of pulmonary embolism. Mild atelectasis is seen. ACT 112: Negative or not required by law. Electronically signed by: Librado Cabral M.D. 04/14/2022 4:31 PM
--- NOTE | 2022-04-14 16:35 | History & Physical Report ---
Date of Service April 14, 2022 Assessment & Plan (1) Shortness of breath: (2) Hypoxia: (3) Chest pain: (4) Moderate persistent asthma: Plan: Obs to med/surg Patient presenting from home with reports of upper chest pain that is exacerbate by minimal movement and shortness of breath Chest pain reproducible with palpation on exam -- ? costochondritis -- will start scheduled Tylenol, Lidoderm patch, PRN tramadol. NSAIDs avoided due to underlying CKD. CXR negative for acute cardiopulmonary findings. CTA chest negative for PE and other acute findings. Possible atelectasis noted. Hypoxia 87% on room air after neb, now saturating well on 2L O2 negative flu, RSV, COVID. Procal WNL Wheezing reported by ED provider -- ? mild asthma exacerbation Given possible atelectasis, incentive spirometer ordered. PRN nebs s/p Solumedrol 60mg IV in the ED -- will continue with prednisone 40mg daily from tomorrow. This may also help treat costochondritis (5) Leukocytosis: Plan: WBC 18k, afebrile, normal procalcitonin No clear source of infection at this time, UA pending S/p cefepime in the ED. Will monitor off antibiotics for now (6) Hypertension: Plan: BP controlled, continue lisinopril/HCTZ, metoprolol, spironolactone (7) History of pulmonary embolism: Plan: On Coumadin, INR 3.6 Hold Coumadin tonight, resume tomorrow pending INR (8) Hypothyroidism: Plan: Continue levothyroxine DVT PROPHYLAXIS On Coumadin, INR 3.6 I spent a total of 50 minutes coordinating, documenting, and providing care for this patient excluding time spent in the performance of separately billed services. This included personally reviewing all current laboratories and imaging studies, medication reconciliation, outpatient chart review, and discussion with specialists. (9) Costochondritis, acute: (10) CKD (chronic kidney disease), stage III: History of Present Illness Chief Complaint: Chest pain, shortness of breath Primary Care Provider: Phil Maldonado MD 82-year-old female with PMH dyslipidemia, hypothyroidism, gout, moderate persistent asthma, HTN, IBS, GERD, CKD stage III, history of pulmonary embolism on Coumadin, and other problems listed below who presents the ED for evaluation of chest pain and shortness of breath. Patient reports she traveled home from [place] 3 days ago from a 3-week trip. Patient reports that she has been generally feeling well. This morning, when patient woke up she reports that she had pain across the top of her chest. Pain was worse with minimal movement. She also reports associated shortness of breath. She then presented to the ED for further evaluation. Patient denies cough and sputum production. No fevers or chills. Over the past several months, patient reports GI issues after eating with cramping and occasional diarrhea. Patient denies lightheadedness, dizziness, diaphoresis, syncopal events. No urinary symptoms. In the ED, patient is saturating in the low 90s on room air. Labs show WBC 18 K, mildly supratherapeutic INR 3.6. CXR does not show any acute cardiopulmonary disease. Patient was given Tylenol, nebulizer, IV cefepime, IV magnesium, IV Solu-Medrol 60 mg. Allergies Allergy/AdvReac Type Severity Reaction Status Date / Time Sulfa (Sulfonamide Allergy Intermediate HIVES Verified 04/14/22 15:46 Antibiotics) [place] And Derivatives AdvReac Intermediate MOUTH Verified 04/14/22 15:46 IRRITATION WITH FRESH FRUIT pineapple AdvReac Intermediate MOUTH Verified 04/14/22 15:46 IRRITATION WITH FRESH FRUIT Home Medications Medication Instructions Recorded Confirmed Type albuterol sulfate 90 mcg/actuation 2 puff inhalation Q6H PRN 02/20/18 04/14/22 History aerosol inhaler Shortness Of Breath Or Wheezing cholecalciferol (vitamin D3) 25 1,000 unit PO DAILY 02/20/18 04/14/22 History mcg (1,000 unit) tablet (Vitamin D3) dicyclomine 10 mg capsule 10 mg PO QID PRN Cramps 02/20/18 04/14/22 History ipratropium 0.5 mg-albuterol 3 mg 1 dose inhalation Q6 PRN Shortness 02/20/18 04/14/22 History (2.5 mg base)/3 mL nebulization Of Breath Or Wheezing soln levocetirizine 5 mg tablet (Xyzal) 5 mg PO QPM 02/20/18 04/14/22 History metoprolol succinate 25 mg 12.5 mg PO DAILY 02/20/18 04/14/22 History tablet,extended release 24 hr (Toprol XL) paroxetine HCl 30 mg tablet (Paxil) 30 mg PO QAM 02/20/18 04/14/22 History pravastatin 10 mg tablet 10 mg PO QPM 02/20/18 04/14/22 History spironolactone 25 mg tablet 12.5 mg PO DAILY 02/20/18 04/14/22 History (Aldactone) lorazepam 1 mg tablet 1 mg PO TID PRN Anxiety 02/24/18 04/14/22 History lisinopril 20 2 tab PO DAILY 12/29/18 04/14/22 History mg-hydrochlorothiazide 12.5 mg tablet montelukast 10 mg tablet 10 mg PO PM 12/29/18 04/14/22 History (Singulair) allopurinol 100 mg tablet 200 mg PO DAILY 04/14/22 04/14/22 History levothyroxine 75 mcg tablet 75 mcg PO DAILY 04/14/22 04/14/22 History warfarin 2.5 mg tablet 1.25 mg PO WE 04/14/22 04/14/22 History warfarin 2.5 mg tablet 2.5 mg PO SUMOTUTHFRSA 04/14/22 04/14/22 History Past Med/Surg History Medical History Aneurysm of right renal artery Chronic gout CKD (chronic kidney disease), stage III Dyslipidemia History of pulmonary embolism Hypertension Hypothyroidism IBS (irritable bowel syndrome) Moderate persistent asthma Surgical History History of cholecystectomy Family History Father Hypertension Mother Stroke Other Family history non-contributory Social History Smoking Status: Never smoker Hx Alcohol Use: No Hx Substance Use: No Preferred Language: Yi Communication Ability: Effective Interventional Technologist Required: No Beliefs That Will Affect Care: None marital status: Current Living Situation: Spouse current occupational status: retired Feels Safe at Home: Yes Assistive Devices: None Review of Systems Review of Systems: ROS per HPI, all other systems reviewed and negative Physical Exam Constitutional: WD/WN, vitals as above Eyes: PERRL, conjunctivae normal, anicteric sclerae ENMT: external ear and nose normal, oropharynx normal Respiratory: normal respiratory effort; no respiratory distress Auscultation: + diminished lung sounds Cardiovascular: Rate/Rhythm: regular rate and regular rhythm Vessels: normal peripheral pulses Extremities: no edema Chest (Breasts): Additional Comments: upper chest wall tenderness Gastrointestinal (Abdomen): normal bowel sounds, soft, nontender, no hepatosplenomegaly Musculoskeletal: no cyanosis or clubbing, extremities motor strength 5/5 Skin: no rashes, warm and dry Neurologic: PERRL, EOMI, accommodation nl, no face palsy, no dysarthria Psychiatric: A+Ox3, euthymic affect Results & Data Results & Data ([facility]) Vital Signs (Past 12 Hours) Vital Signs Temp Pulse Pulse Resp BP BP Pulse Ox 04/14/22 14:36 93 H 22 164/87 H 97 04/14/22 12:03 90 04/14/22 12:03 37.0 C 87 20 164/87 H 90 O2 Del Method 04/14/22 14:36 04/14/22 12:03 Room Air 04/14/22 12:03 Room Air Laboratory Results Short CBC 04/14/22 Range/Units 12:19 WBC 18.20 H (4.8-10.8) K/ul Hgb 11.8 L (12.0-16.0) g/dl Hct 34.5 (34.1-44.9) % Plt Count 311 (130-400) K/uL BMP 04/14/22 12:19 Sodium 136 Potassium 3.6 Chloride 103 Carbon Dioxide 25 BUN 15 Creatinine 0.91 Glucose 109 H Calcium 8.8 Liver Function 04/14/22 Range/Units 12:19 Total Bilirubin 0.6 (0.2-1.0) mg/dl AST 18 (13-39) U/L ALT 12 (7-52) U/L Alkaline Phosphatase 47 (34-104) U/L Albumin 3.5 (3.4-5.0) gm/dl Diagnostic Findings Chest X-Ray 04/14/22 11:47 XR chest 1V portable HISTORY: 82 years-old Female Chest pain, nonspecific acute chest pain COMPARISON: Chest radiograph 12/29/2018 TECHNIQUE: AP view of the chest FINDINGS: Cardiomediastinal and hilar silhouettes are within normal limits. Ath erosclerosis of the aorta. No pneumothorax, large pleural effusion or overt pulmonary edema. Mild linear scarring present atelectasis of the lateral left lung base. Degenerative changes of the shoulders and spine. IMPRESSION: No acute process. ACT 112: Negative or not required by law. The above report was generated using voice recognition software. It may contain grammatical, syntax or spelling errors. Electronically signed by: Chris Carrillo M.D. 04/14/2022 12:13 PM Code Status & VTE Plan Code Status Patient is a full code as per my discussion with her. VTE Prophylaxis Plan VTE Prophylaxis will be ordered: No Reason for no VTE drug order: Treatment not indicated Supervising Physician Co-Signing Physician Notes I have seen and examined the patient and have discussed the case with the provider above. I agree with the assessment and plan as stated with the following exceptions. The patient is an 82-year-old female who presents with right chest pain anteriorly that is sharp and consistent. She reports this is triggered by minimal movement. She has reproducible pain with palpation and has a history of costochondritis 3 months ago. She has no pulmonary symptoms but is acutely hypoxic. On my arrival to the room she was completing a nebulizer treatment and when this was done I took it off of her and left her off oxygen supplementation. She quickly dropped to 87% within 3 to 4 minutes. Oxygen saturation rebounded to 92% easily with addition of 2 L/min via nasal cannula. She denies any respiratory symptoms nasal congestion or other infectious symptoms. She reports recently traveling to [place] and states that "my allergies were fine in [place]". She reports having significant GI issues with cramping and occasional diarrhea after eating. She reports having "a lot of gas" which is a chronic problem for her. On physical exam she appears uncomfortable. She demonstrates normal respiratory effort but appears to be in an uncomfortable position no matter which way she adjusts. She is well-nourished well-developed female. Lungs are clear to auscultation throughout aside from the bases bilaterally where there are coarse crackles. No wheezes were heard. No rales were heard. Cardiac exam reveals S1-S2 with regular rate and rhythm and no evidence of murmurs gallops or rubs. Abdomen was soft nontender nondistended. She did have chest pain in the right anterior chest wall that was significant with minimal palpation. She has no gross focal neurologic deficits. Work-up today reveals a CBC with a white blood cell count of 18,000 and a left shift. H&H is 11.8/34.5. There is a mild monocytosis on the differential. Platelet count is within normal limits. INR supratherapeutic at 3.6 and she is on Coumadin for history of PE/DVT chemistry is unremarkable. Hepatic panel is unremarkable. Procalcitonin is negative. Lipase is normal. Urinalysis is normal. Nasal swab for SARS-CoV-2, flu, RSV is negative. Imaging including a CTA of the chest reveals no evidence of pulmonary embolus mild atelectasis and no evidence of pneumonia. EKG reveals sinus rhythm with a heart rate of 87, no evidence of block or acute ischemia. Overall this is an 82-year-old female with a history of asthma who presented with reported right anterior chest pain and shortness of breath. She has a significant history of costochondritis just recently and cardiac work-up is negative to date. Suspect costochondritis is the issue causing chest pain here, however, that does not necessarily explain the hypoxia unless she is having pain with breathing which she does not report. She does have a history of asthma although I question the accuracy of her having exacerbation with her limited symptoms until today. Agree with empiric course of prednisone for pain and questionable exacerbation of asthma with noted wheezing per ER doctor on initial admission exam. It is difficult to find a clear source of the leukocytosis with left shift, especially since she has no clear infectious symptoms. She does not appear septic. There is no clear infection so we will hold off on antibiotics at this time and trend CBC in a.m. Continue to provide adequate pain control with Tylenol, Lidoderm patch or other as needed. DO Colt (1) Hypothyroidism Hypothyroidism type: acquired Qualified Code(s): E03.9 - Hypothyroidism, unspecified (2) Hypertension Hypertension type: essential hypertension Qualified Code(s): I10 - Essential (primary) hypertension
[2022-04-14] MEDS ORDERED: DICYCLOMINE HCL 10 MG CAP PO PRN (18:08)
[2022-04-14] MEDS ORDERED: traMADol HCL 50 MG TABLET PO PRN ×2 (18:08→23:00)
[2022-04-14] MEDS ORDERED: ACETAMINOPHEN 325 MG TAB PO PRN (18:08)
[2022-04-14] MEDS ORDERED: LORazepam 1 MG TAB PO PRN (18:08)
[2022-04-14] MEDS ORDERED: ALBUT/IPRATROP 3MG/0.5MG NEB 3 ML VIAL NEB PRN (18:08)
[2022-04-14] MEDS ORDERED: LORazepam 0.5 MG TAB PO PRN (18:08)
[2022-04-14] MEDS ORDERED: LIDOCAINE 5% 1 PATCH TD SCH ×2 (18:08)
[2022-04-14 18:56] LABS: Appearance Urine Clear (Clear); Bilirubin Urine Negative (Negative); Blood Urine Negative (Negative); Color Urine Yellow; Glucose Urine UA Negative (Negative); Ketones Urine Negative (Negative); Leukocyte Esterase Urine Negative (Negative); Nitrite Urine Negative (Negative); Protein Urine Negative (Negative); Specific Gravity Urine 1.015 (1.000-1.030); Urobilinogen Urine Negative (Negative); pH Urine 5.5 (4.5-7.5)
[2022-04-14] MEDS ORDERED: ACETAMINOPHEN 500 MG TAB PO SCH (20:00)
[2022-04-14] MEDS ORDERED: NITROGLYCERIN SL 0.4 MG/TAB TAB SL PRN (20:11)
[2022-04-14] MEDS: LIDOCAINE 5% 1 PATCH TD SCH (20:21)
[2022-04-14] MEDS: CETIRIZINE HCL 10 MG TABLET PO SCH (21:16)
[2022-04-14] MEDS: MONTELUKAST SODIUM 10 MG TABLET PO SCH (21:16)
[2022-04-14] MEDS: PRAVASTATIN SOD 10 MG TAB PO SCH (21:16)
[2022-04-14 21:59] LABS: Hematocrit (blood only) 35.7 % (34.1-44.9); Mean Corpuscular Hemoglobin 31.4 pg (25.0-34.0); Mean Corpuscular Hgb Conc 33.6 g/dL (32.0-36.0); Mean Corpuscular Volume 93.5 fL (80.0-100.0); Mean Platelet Volume 11.2 fL (9.4-12.3); Platelet Count 318 K/uL (130-400); RDW Standard Deviation 47.8 fL (36.4-46.3); Red Blood Count 3.82 M/uL (3.93-5.22); White Blood Count 17.12 K/ul (4.8-10.8)
[2022-04-14] MEDS: ACETAMINOPHEN 500 MG TAB PO SCH (22:25)
[2022-04-14 23:25] LABS: Basophils # (auto) 0.03 K/uL (0-0.2); Basophils % (auto) 0.2 %; Immature Granulocytes # (auto) 0.15 K/uL (0.00-0.02); Immature Granulocytes % (auto) 0.9 %; Lymphocytes # (auto) 0.57 K/uL (1.2-3.4); Lymphocytes % (auto) 3.3 %; Monocytes # (auto) 0.03 K/uL (0.24-0.82); Monocytes % (auto) 0.2 %; Neutrophils # (auto) 16.34 K/uL (1.4-6.5); Neutrophils % (auto) 95.4 %
[2022-04-15] MEDS: LEVOTHYROXINE SODIUM 75 MCG TABLET PO SCH (05:34)
[2022-04-15 07:25] LABS: Hematocrit (blood only) 33.2 % (34.1-44.9); Hemoglobin 11.3 g/dl (12.0-16.0); Mean Corpuscular Hemoglobin 32.2 pg (25.0-34.0); Mean Corpuscular Volume 94.6 fL (80.0-100.0); Mean Platelet Volume 10.9 fL (9.4-12.3); Platelet Count 286 K/uL (130-400); RDW Coefficient of Variation 13.8 % (11.5-14.5); RDW Standard Deviation 47.6 fL (36.4-46.3); Red Blood Count 3.51 M/uL (3.93-5.22)
[2022-04-15 08:07] LABS: Calcium 8.4 mg/dl (8.5-10.1); Potassium 3.9 mmol/L (3.5-5.1)
[2022-04-15 08:09] LABS: INR 2.6 (0.9-1.1); Prothrombin Time 26.6 Seconds (9.0-12.0)
[2022-04-15 08:13] LABS: BUN Creatinine Ratio 19.1 (10-20); Creatinine Clr Calc Pharmacy 38.1 ml/min; Est GFR (African American) 44.5 ml/min; Est GFR (Non-African American) 38.4 ml/min
[2022-04-15] MEDS: ACETAMINOPHEN 500 MG TAB PO SCH ×4 (08:22→21:33)
[2022-04-15] MEDS: METOPROLOL SUCC 25MG EXT REL TAB PO SCH (08:23)
[2022-04-15] MEDS: predniSONE 20 MG TAB PO SCH (08:23)
[2022-04-15] MEDS: LISINOPRIL/HCTZ 20/12.5MG 1 TAB TAB PO SCH (08:23)
[2022-04-15] MEDS: SPIRONOLACTONE 12.5 MG TAB PO SCH (08:23)
[2022-04-15] MEDS: allopurinoL 100 MG TAB PO SCH (08:23)
[2022-04-15] MEDS: PARoxetine HCL 10 MG TAB PO SCH (08:24)
[2022-04-15] MEDS: LIDOCAINE 5% 1 PATCH TD SCH (08:24)
[2022-04-15] MEDS ORDERED: LIDOCAINE 5% 1 PATCH TD SCH (09:00)
--- NOTE | 2022-04-15 13:35 | Hospitalist Progress Note ---
Date of Service April 15, 2022 Assessment & Plan (1) Shortness of breath: (2) Hypoxia: (3) Chest pain: Plan: Admitted to [facility] Patient presenting from home with reports of upper chest pain that is exacerbate by minimal movement and shortness of breath Chest pain reproducible with palpation on exam History of significant costochondritis with prior negative work of for ACS Started on Tylenol, Lidoderm patch, PRN tramadol. NSAIDs avoided due to underlying CKD. (4) Moderate persistent asthma: Plan: CXR negative for acute cardiopulmonary findings. CTA chest negative for PE and other acute findings. Possible atelectasis noted. Hypoxia 87% on room air after neb, now saturating well on 2L O2 negative flu, RSV, COVID. Procal WNL Wheezing reported by ED provider --mild asthma exacerbation Given possible atelectasis, incentive spirometer ordered. PRN nebs s/p Solumedrol 60mg IV in the ED -- will continue with prednisone 40mg daily from tomorrow. This may also help treat costochondritis Has been getting prednisone No wheezing and chest remains clear on examination We will continue prednisone which may be helping costochondritis pain is (5) Leukocytosis: Plan: WBC 18k, afebrile, normal procalcitonin No clear source of infection at this time, UA pending S/p cefepime in the ED. Will monitor off antibiotics for now Has minimal abdominal pain and also loose stool We will check a stool for C. difficile Leukocytosis has been improving No antibiotics will be prescribed as of yet (6) Hypertension: Plan: BP controlled, continue lisinopril/HCTZ, metoprolol, spironolactone (7) History of pulmonary embolism: Plan: On Coumadin, INR 3.6 Hold Coumadin tonight, resume tomorrow pending INR INR is 2.6 and will restart Coumadin (8) Hypothyroidism: Plan: Continue levothyroxine DVT PROPHYLAXIS On Coumadin, INR 3.6 (9) Costochondritis, acute: (10) CKD (chronic kidney disease), stage III: Admission and Anticipated Discharge Date Admission Date: April 14, 2022 Subjective 04/15/2022 The patient was seen and examined in medical floor She has been complaining of abdominal pain for that she has been taking Bentyl occasionally She has had loose bowel movements today but denies any distention, nausea and or vomiting Her breathing is better and does not have any wheezing No fever and or chills and the white count is slightly improved to 16,000 Review of Systems Review of Systems: All systems reviewed and are unremarkable except as noted below Gastrointestinal: Minimal abdominal pain without distention and/or nausea/vomiting Physical Exam Physical Exam: Lying in bed comfortably Constitutional: well developed and well nourished; not ill appearing Eyes: PERRL, conjunctivae normal, anicteric sclerae ENMT: external ear and nose normal, oropharynx normal Neck: trachea midline, no thyromegaly Respiratory: no respiratory distress Auscultation: lungs clear to auscultation bilaterally Cardiovascular: Rate/Rhythm: regular rate and regular rhythm; not tachycardic Heart Sounds: normal S1 and normal S2; no murmur Vessels: posterior tibial pulses present and dorsalis pedis pulses present Extremities: no edema Gastrointestinal (Abdomen): Inspection/Auscultation: normal bowel sounds; abdomen not distended Percussion/Palpation: abdomen soft; abdomen nontender Musculoskeletal: No acute arthritis involving any joint Neurologic: normal touch/pain/proprioception and moves all extremities; no focal motor deficits Psychiatric: A+Ox3, euthymic affect Lymphatic: no cervical or axillary lymphadenopathy Results & Data Results & Data ([facility]) Vital Signs (Past 12 Hours) Vital Signs Temp Pulse Resp BP Pulse Ox O2 Del Method O2 Flow Rate 04/15/22 07:15 36.5 C 64 16 111/61 93 Nasal Cannula 2 Laboratory Results Short CBC 04/14/22 04/15/22 Range/Units 20:25 06:49 WBC 17.12 H 15.40 H (4.8-10.8) K/ul Hgb 12.0 11.3 L (12.0-16.0) g/dl Hct 35.7 33.2 L (34.1-44.9) % Plt Count 318 286 (130-400) K/uL BMP 04/15/22 06:49 Sodium 136 Potassium 3.9 Chloride 101 Carbon Dioxide 26 BUN 25 H Creatinine 1.31 H D Glucose 137 H Calcium 8.4 L Urine 04/14/22 Range/Units 14:35 Urine Color Yellow Urine Appearance Clear (Clear) Urine pH 5.5 (4.5-7.5) Ur Specific [place] 1.015 (1.000-1.030) Urine Protein Negative (Negative) Urine Glucose (UA) Negative (Negative) Medications Administered Current Inpatient Medications Acetaminophen (Acetaminophen 500 Mg Tab) 1,000 mg PO Q8H DEANNE Stop: 05/14/22 22:59 Last Admin: 04/15/22 08:22 Dose: 1,000 mg Albuterol (Albut/Ipratrop 3mg/0.5mg Neb 3 Ml Vial) 3 ml NEB Q4R PRN; Protocol PRN Reason: shortness of breath Stop: 05/14/22 18:07 Allopurinol (Allopurinol 100 Mg Tab) 200 mg PO DAILY DEANNE Stop: 05/15/22 08:59 Last Admin: 04/15/22 08:23 Dose: 200 mg Cetirizine HCl (Cetirizine Hcl 10 Mg Tablet) 5 mg PO QPM DEANNE Stop: 05/14/22 20:59 Last Admin: 04/14/22 21:16 Dose: 5 mg Dicyclomine HCl (Dicyclomine Hcl 10 Mg Cap) 10 mg PO QID PRN PRN Reason: Cramps Stop: 05/14/22 18:07 Lisinopril/HCTZ (Lisinopril/Hctz 20/12.5mg 1 Tab Tab) 2 tab PO DAILY [facility] Stop: 05/15/22 08:59 Last Admin: 04/15/22 08:23 Dose: 2 tab Levothyroxine Sodium (Levothyroxine Sodium 75 Mcg Tablet) 75 mcg PO DAILYBB [facility] Stop: 05/15/22 06:29 Last Admin: 04/15/22 05:34 Dose: 75 mcg Lidocaine (Lidocaine 5% 1 Patch) 1 patch TD Q24H DEANNE Stop: 05/14/22 20:14 Last Admin: 04/15/22 08:24 Dose: 1 patch Lorazepam (Lorazepam 0.5 Mg Tab) 0.5 mg PO HS PRN PRN Reason: Anxiety Stop: 05/14/22 18:07 Metoprolol Succinate (Metoprolol Succ 25mg Ext Rel Tab) 12.5 mg PO DAILY DEANNE Stop: 05/15/22 08:59 Last Admin: 04/15/22 08:23 Dose: 12.5 mg Miscellaneous (Remove Lidoderm Patch) 1 each N/A DAILY@0815 [facility] Stop: 05/15/22 08:14 Last Admin: 01/18/23 08:24 Dose: 1 each Montelukast Sodium (Montelukast Sodium 10 Mg Tablet) 10 mg PO PM [facility] Stop: 05/14/22 20:59 Last Admin: 04/14/22 21:16 Dose: 10 mg Nitroglycerin (Nitroglycerin Sl 0.4 Mg/Tab Tab) 0.4 mg SL PRN PRN PRN Reason: chest pain Stop: 05/14/22 20:10 Paroxetine HCl (Paroxetine Hcl 10 Mg Tab) 30 mg PO QAM [facility] Stop: 05/15/22 08:59 Last Admin: 04/15/22 08:24 Dose: 30 mg Pravastatin Sodium (Pravastatin Sod 10 Mg Tab) 10 mg PO QPM [facility] Stop: 05/14/22 20:59 Last Admin: 04/14/22 21:16 Dose: 10 mg Prednisone (Prednisone 20 Mg Tab) 40 mg PO DAILY [facility] Stop: 05/15/22 08:59 Last Admin: 04/15/22 08:23 Dose: 40 mg Spironolactone (Spironolactone 12.5 Mg Tab) 12.5 mg PO DAILY [facility] Stop: 05/15/22 08:59 Last Admin: 04/15/22 08:23 Dose: 12.5 mg Tramadol HCl (Tramadol Hcl 50 Mg Tablet) 100 mg PO Q4H PRN PRN Reason: Pain Stop: 05/14/22 22:59 Warfarin Sodium (Warfarin Sod 1.25 Mg Tab) 1.25 mg PO We@1600 [facility] Stop: 05/15/22 15:59 Warfarin Sodium (Warfarin Sod 2.5 Mg Tab) 2.5 mg PO [id number]@1600 [facility] Stop: 05/16/22 15:59 (1) Hypertension Hypertension type: essential hypertension Qualified Code(s): I10 - Essential (primary) hypertension (2) Hypothyroidism Hypothyroidism type: acquired Qualified Code(s): E03.9 - Hypothyroidism, unspecified
[2022-04-15] MEDS ORDERED: WARFARIN SOD 1.25 MG TAB PO SCH (16:00)
[2022-04-15] MEDS: CETIRIZINE HCL 10 MG TABLET PO SCH (21:28)
[2022-04-15] MEDS: PRAVASTATIN SOD 10 MG TAB PO SCH (21:28)
[2022-04-15] MEDS: MONTELUKAST SODIUM 10 MG TABLET PO SCH (21:28)
[2022-04-16] MEDS: LEVOTHYROXINE SODIUM 75 MCG TABLET PO SCH (05:41)
[2022-04-16] MEDS: ACETAMINOPHEN 500 MG TAB PO SCH ×3 (05:41→22:00)
--- NOTE | 2022-04-16 06:09 | Electrocardiogram Report ---
Test Reason : Blood Pressure : / mmHG Vent. Rate : 087 BPM Atrial Rate : 087 BPM P-R Int : 168 ms QRS Dur : 066 ms QT Int : 338 ms P-R-T Axes : 046 010 044 degrees QTc Int : 406 ms Normal sinus rhythm Normal ECG When compared with ECG of 30-DEC-2018 07:20, Vent. rate has increased BY 31 BPM T wave amplitude has decreased in Anterior leads Confirmed by Waldo Rodriguez ([id number]) on 04/16/2022 6:09:40 AM Referred By: ED Confirmed By:Waldo Rodriguez
[2022-04-16 06:10] LABS: Basophils # (auto) 0.02 K/uL (0-0.2); Basophils % (auto) 0.1 %; Hematocrit (blood only) 33.3 % (34.1-44.9); Hemoglobin 11.3 g/dl (12.0-16.0); Immature Granulocytes # (auto) 0.09 K/uL (0.00-0.02); Immature Granulocytes % (auto) 0.5 %; Lymphocytes # (auto) 1.65 K/uL (1.2-3.4); Lymphocytes % (auto) 9.4 %; Mean Corpuscular Hemoglobin 32.1 pg (25.0-34.0); Mean Corpuscular Hgb Conc 33.9 g/dL (32.0-36.0); Mean Corpuscular Volume 94.6 fL (80.0-100.0); Mean Platelet Volume 11.2 fL (9.4-12.3); Monocytes # (auto) 0.78 K/uL (0.24-0.82); Monocytes % (auto) 4.4 %; Neutrophils % (auto) 85.6 %; Platelet Count 294 K/uL (130-400); RDW Standard Deviation 47.6 fL (36.4-46.3); Red Blood Count 3.52 M/uL (3.93-5.22); White Blood Count 17.64 K/ul (4.8-10.8)
[2022-04-16 06:27] LABS: Calcium 8.3 mg/dl (8.5-10.1)
[2022-04-16 06:33] LABS: BUN Creatinine Ratio 27.8 (10-20); Creatinine Clr Calc Pharmacy 43.4 ml/min; Est GFR (Non-African American) 44.9 ml/min
[2022-04-16 06:34] LABS: INR 2.2 (0.9-1.1); Prothrombin Time 22.6 Seconds (9.0-12.0)
[2022-04-16] MEDS: LIDOCAINE 5% 1 PATCH TD SCH (08:28)
[2022-04-16] MEDS: SPIRONOLACTONE 12.5 MG TAB PO SCH (08:29)
[2022-04-16] MEDS: METOPROLOL SUCC 25MG EXT REL TAB PO SCH (08:29)
[2022-04-16] MEDS: allopurinoL 100 MG TAB PO SCH (08:29)
[2022-04-16] MEDS: PARoxetine HCL 10 MG TAB PO SCH (08:29)
[2022-04-16] MEDS: predniSONE 20 MG TAB PO SCH (08:30)
[2022-04-16] MEDS: LISINOPRIL/HCTZ 20/12.5MG 1 TAB TAB PO SCH (08:30)
--- NOTE | 2022-04-16 13:47 | Hospitalist Progress Note ---
Date of Service April 16, 2022 Assessment & Plan (1) Shortness of breath: (2) Hypoxia: (3) Chest pain: Plan: Admitted to [facility] Patient presenting from home with reports of upper chest pain that is exacerbate by minimal movement and shortness of breath Chest pain reproducible with palpation on exam History of significant costochondritis with prior negative work of for ACS Started on Tylenol, Lidoderm patch, PRN tramadol. NSAIDs avoided due to underlying CKD. Chest pain is secondary to costochondritis Remains stable as of today (4) Moderate persistent asthma: Plan: CXR negative for acute cardiopulmonary findings. CTA chest negative for PE and other acute findings. Possible atelectasis noted. Hypoxia 87% on room air after neb, now saturating well on 2L O2 negative flu, RSV, COVID. Procal WNL Wheezing reported by ED provider --mild asthma exacerbation Given possible atelectasis, incentive spirometer ordered. PRN nebs s/p Solumedrol 60mg IV in the ED -- will continue with prednisone 40mg daily from tomorrow. This may also help treat costochondritis Has been getting prednisone No wheezing and chest remains clear on examination Denies any wheezing and/or shortness of breath and saturating normally on room air Walked in the hallway without any significant desaturation and/or symptoms (5) Leukocytosis: Plan: WBC 18k, afebrile, normal procalcitonin No clear source of infection at this time, UA pending S/p cefepime in the ED. Will monitor off antibiotics for now Has minimal abdominal pain and also loose stool We will check a stool for C. difficile Leukocytosis has been improving No antibiotics will be prescribed as of yet Leukocytosis has been improving and will monitor while she is in the hospital No indications of antibiotics yet (6) Hypertension: Plan: BP controlled, continue lisinopril/HCTZ, metoprolol, spironolactone (7) History of pulmonary embolism: Plan: On Coumadin, INR 3.6 Hold Coumadin tonight, resume tomorrow pending INR INR is 2.6 and will restart Coumadin (8) Hypothyroidism: Plan: Continue levothyroxine DVT PROPHYLAXIS On Coumadin, INR 3.6 (9) Costochondritis, acute: (10) CKD (chronic kidney disease), stage III: Admission and Anticipated Discharge Date Admission Date: April 14, 2022 Subjective 04/15/2022 The patient was seen and examined in medical floor She has been complaining of abdominal pain for that she has been taking Bentyl occasionally She has had loose bowel movements today but denies any distention, nausea and or vomiting Her breathing is better and does not have any wheezing No fever and or chills and the white count is slightly improved to 16,000 04/16/2022 The patient was seen and examined in medical floor She has been feeling a little better today Abdominal pain is better and did not have any diarrhea Her shortness of breath is resolved Bilateral chest pain persist occasionally Review of Systems Review of Systems: All systems reviewed and are unremarkable except as noted below Gastrointestinal: Minimal abdominal pain without distention and/or nausea/vomiting Physical Exam Physical Exam: Lying in bed comfortably Constitutional: well developed and well nourished; not ill appearing Eyes: PERRL, conjunctivae normal, anicteric sclerae ENMT: external ear and nose normal, oropharynx normal Neck: trachea midline, no thyromegaly Respiratory: no respiratory distress Auscultation: lungs clear to auscultation bilaterally Cardiovascular: Rate/Rhythm: regular rate and regular rhythm; not tachycardic Heart Sounds: normal S1 and normal S2; no murmur Vessels: posterior tibial pulses present and dorsalis pedis pulses present Extremities: no edema Chest (Breasts): Additional Comments: Significant tenderness noted over costochondral junctions on either side Gastrointestinal (Abdomen): Inspection/Auscultation: normal bowel sounds; abdomen not distended Percussion/Palpation: abdomen soft; abdomen nontender Musculoskeletal: No acute arthritis involving any joint Neurologic: normal touch/pain/proprioception and moves all extremities; no focal motor deficits Psychiatric: A+Ox3, euthymic affect Lymphatic: no cervical or axillary lymphadenopathy Results & Data Results & Data ([facility]) Vital Signs (Past 12 Hours) Vital Signs Temp Pulse Resp BP Pulse Ox O2 Del Method 04/16/22 07:17 36.6 C 53 L 16 117/66 94 Room Air Laboratory Results Short CBC 04/16/22 Range/Units 05:22 WBC 17.64 H (4.8-10.8) K/ul Hgb 11.3 L (12.0-16.0) g/dl Hct 33.3 L (34.1-44.9) % Plt Count 294 (130-400) K/uL BMP 04/16/22 05:22 Sodium 138 Potassium 4.0 Chloride 104 Carbon Dioxide 27 BUN 32 H Creatinine 1.15 Glucose 109 H Calcium 8.3 L Medications Administered Current Inpatient Medications Acetaminophen (Acetaminophen 500 Mg Tab) 1,000 mg PO Q8H DEANNE Stop: 05/14/22 22:59 Last Admin: 04/16/22 05:41 Dose: 1,000 mg Albuterol (Albut/Ipratrop 3mg/0.5mg Neb 3 Ml Vial) 3 ml NEB Q4R PRN; Protocol PRN Reason: shortness of breath Stop: 05/14/22 18:07 Allopurinol (Allopurinol 100 Mg Tab) 200 mg PO DAILY DEANNE Stop: 05/15/22 08:59 Last Admin: 04/16/22 08:29 Dose: 200 mg Cetirizine HCl (Cetirizine Hcl 10 Mg Tablet) 5 mg PO QPM DEANNE Stop: 05/14/22 20:59 Last Admin: 04/15/22 21:28 Dose: 5 mg Dicyclomine HCl (Dicyclomine Hcl 10 Mg Cap) 10 mg PO QID PRN PRN Reason: Cramps Stop: 05/14/22 18:07 Lisinopril/HCTZ (Lisinopril/Hctz 20/12.5mg 1 Tab Tab) 2 tab PO DAILY DEANNE Stop: 05/15/22 08:59 Last Admin: 04/16/22 08:30 Dose: 2 tab Levothyroxine Sodium (Levothyroxine Sodium 75 Mcg Tablet) 75 mcg PO DAILYBB DEANNE Stop: 05/15/22 06:29 Last Admin: 04/16/22 05:41 Dose: 75 mcg Lidocaine (Lidocaine 5% 1 Patch) 1 patch TD Q24H DEANNE Stop: 05/14/22 20:14 Last Admin: 04/16/22 08:28 Dose: 1 patch Lorazepam (Lorazepam 0.5 Mg Tab) 0.5 mg PO HS PRN PRN Reason: Anxiety Stop: 05/14/22 18:07 Metoprolol Succinate (Metoprolol Succ 25mg Ext Rel Tab) 12.5 mg PO DAILY DEANNE Stop: 05/15/22 08:59 Last Admin: 04/16/22 08:29 Dose: 12.5 mg Miscellaneous (Remove Lidoderm Patch) 1 each N/A DAILY@0815 DEANNE Stop: 05/15/22 08:14 Last Admin: 04/16/22 08:29 Dose: 1 each Montelukast Sodium (Montelukast Sodium 10 Mg Tablet) 10 mg PO PM [facility] Stop: 05/14/22 20:59 Last Admin: 04/15/22 21:28 Dose: 10 mg Nitroglycerin (Nitroglycerin Sl 0.4 Mg/Tab Tab) 0.4 mg SL PRN PRN PRN Reason: chest pain Stop: 05/14/22 20:10 Paroxetine HCl (Paroxetine Hcl 10 Mg Tab) 30 mg PO QAM [facility] Stop: 05/15/22 08:59 Last Admin: 04/16/22 08:29 Dose: 30 mg Pravastatin Sodium (Pravastatin Sod 10 Mg Tab) 10 mg PO QPM [facility] Stop: 05/14/22 20:59 Last Admin: 04/15/22 21:28 Dose: 10 mg Prednisone (Prednisone 20 Mg Tab) 40 mg PO DAILY [facility] Stop: 05/15/22 08:59 Last Admin: 04/16/22 08:30 Dose: 40 mg Spironolactone (Spironolactone 12.5 Mg Tab) 12.5 mg PO DAILY [facility] Stop: 05/15/22 08:59 Last Admin: 04/16/22 08:29 Dose: 12.5 mg Tramadol HCl (Tramadol Hcl 50 Mg Tablet) 100 mg PO Q4H PRN PRN Reason: Pain Stop: 05/14/22 22:59 Warfarin Sodium (Warfarin Sod 1.25 Mg Tab) 1.25 mg PO We@1600 [facility] Stop: 05/15/22 15:59 Last Admin: 04/15/22 17:29 Dose: 1.25 mg Warfarin Sodium (Warfarin Sod 2.5 Mg Tab) 2.5 mg PO [id number]@1600 [facility] Stop: 05/16/22 15:59 (1) Chest pain Chest pain type: unspecified Qualified Code(s): R07.9 - Chest pain, unspecified (2) Moderate persistent asthma Asthma complication type: unspecified Qualified Code(s): J45.40 - Moderate persistent asthma, uncomplicated (3) Hypertension Hypertension type: essential hypertension Qualified Code(s): I10 - Essential (primary) hypertension (4) Hypothyroidism Hypothyroidism type: acquired Qualified Code(s): E03.9 - Hypothyroidism, unspecified
[2022-04-16] MEDS: WARFARIN SOD 2.5 MG TAB PO SCH (15:42)
[2022-04-16] MEDS: PRAVASTATIN SOD 10 MG TAB PO SCH (20:13)
[2022-04-16] MEDS: MONTELUKAST SODIUM 10 MG TABLET PO SCH (20:13)
[2022-04-16] MEDS: CETIRIZINE HCL 10 MG TABLET PO SCH (20:13)
[2022-04-17] MEDS: LEVOTHYROXINE SODIUM 75 MCG TABLET PO SCH (06:19)
[2022-04-17] MEDS: ACETAMINOPHEN 500 MG TAB PO SCH ×2 (06:20→15:20)
[2022-04-17] MEDS: LISINOPRIL/HCTZ 20/12.5MG 1 TAB TAB PO SCH (08:52)
[2022-04-17] MEDS: predniSONE 20 MG TAB PO SCH (08:53)
[2022-04-17] MEDS: PARoxetine HCL 10 MG TAB PO SCH (08:53)
[2022-04-17] MEDS: allopurinoL 100 MG TAB PO SCH (08:53)
[2022-04-17] MEDS: SPIRONOLACTONE 12.5 MG TAB PO SCH (08:53)
[2022-04-17] MEDS: METOPROLOL SUCC 25MG EXT REL TAB PO SCH (08:55)
[2022-04-17 09:19] LABS: Basophils # (auto) 0.02 K/uL (0-0.2); Basophils % (auto) 0.2 %; Eosinophils # (auto) 0.04 K/uL (0-0.50); Eosinophils % (auto) 0.3 %; Hematocrit (blood only) 34.4 % (34.1-44.9); Hemoglobin 11.3 g/dl (12.0-16.0); Immature Granulocytes # (auto) 0.05 K/uL (0.00-0.02); Immature Granulocytes % (auto) 0.4 %; Lymphocytes % (auto) 24.8 %; Mean Corpuscular Hemoglobin 31.6 pg (25.0-34.0); Mean Corpuscular Hgb Conc 32.8 g/dL (32.0-36.0); Mean Corpuscular Volume 96.1 fL (80.0-100.0); Mean Platelet Volume 11.2 fL (9.4-12.3); Monocytes # (auto) 0.77 K/uL (0.24-0.82); Monocytes % (auto) 6.4 %; Neutrophils % (auto) 67.9 %; Platelet Count 304 K/uL (130-400); RDW Coefficient of Variation 13.9 % (11.5-14.5); RDW Standard Deviation 49.1 fL (36.4-46.3); Red Blood Count 3.58 M/uL (3.93-5.22); White Blood Count 12.08 K/ul (4.8-10.8)
[2022-04-17] MEDS: WARFARIN SOD 2.5 MG TAB PO SCH (15:20)
--- NOTE | 2022-04-17 15:33 | Hospitalist Progress Note ---
Date of Service April 17, 2022 Assessment & Plan (1) Shortness of breath: Plan: No more shortness of breath (2) Hypoxia: Plan: Has been saturating normally on room air and does not have any shortness of breath with exertion (3) Chest pain: Plan: Admitted to [facility] Patient presenting from home with reports of upper chest pain that is exacerbate by minimal movement and shortness of breath Chest pain reproducible with palpation on exam History of significant costochondritis with prior negative work of for ACS Started on Tylenol, Lidoderm patch, PRN tramadol. NSAIDs avoided due to underlying CKD. Chest pain is secondary to costochondritis Remains stable as of today No cardiac chest pain and the chest pain she is having is due to costochondritis (4) Moderate persistent asthma: Plan: CXR negative for acute cardiopulmonary findings. CTA chest negative for PE and other acute findings. Possible atelectasis noted. Hypoxia 87% on room air after neb, now saturating well on 2L O2 negative flu, RSV, COVID. Procal WNL Wheezing reported by ED provider --mild asthma exacerbation Given possible atelectasis, incentive spirometer ordered. PRN nebs s/p Solumedrol 60mg IV in the ED -- will continue with prednisone 40mg daily from tomorrow. This may also help treat costochondritis Has been getting prednisone No wheezing and chest remains clear on examination Denies any wheezing and/or shortness of breath and saturating normally on room air Walked in the hallway without any significant desaturation and/or symptoms Remained stable and does not have any respiratory symptoms Will be discharged home this afternoon (5) Leukocytosis: Plan: WBC 18k, afebrile, normal procalcitonin No clear source of infection at this time, UA pending S/p cefepime in the ED. Will monitor off antibiotics for now Has minimal abdominal pain and also loose stool We will check a stool for C. difficile Leukocytosis has been improving No antibiotics will be prescribed as of yet Leukocytosis has been improving and will monitor while she is in the hospital No indications of antibiotics yet Leukocytosis is resolved (6) Hypertension: Plan: BP controlled, continue lisinopril/HCTZ, metoprolol, spironolactone (7) History of pulmonary embolism: Plan: On Coumadin, INR 3.6 Hold Coumadin tonight, resume tomorrow pending INR INR is 2.6 and will restart Coumadin (8) Hypothyroidism: Plan: Continue levothyroxine DVT PROPHYLAXIS On Coumadin, INR 3.6 (9) Costochondritis, acute: Plan: Continue to use lidocaine patch and will be given on discharge (10) CKD (chronic kidney disease), stage III: Admission and Anticipated Discharge Date Admission Date: April 16, 2022 Subjective 04/15/2022 The patient was seen and examined in medical floor She has been complaining of abdominal pain for that she has been taking Bentyl occasionally She has had loose bowel movements today but denies any distention, nausea and or vomiting Her breathing is better and does not have any wheezing No fever and or chills and the white count is slightly improved to 16,000 04/16/2022 The patient was seen and examined in medical floor She has been feeling a little better today Abdominal pain is better and did not have any diarrhea Her shortness of breath is resolved Bilateral chest pain persist occasionally 04/17/2022 The patient was seen and examined in medical floor She has been feeling much better denies any symptoms No chest pain, palpitation and no shortness of breath She has been ambulating in the hallway without any difficulties She was discharged home this afternoon Review of Systems Review of Systems: All systems reviewed and are unremarkable except as noted below Gastrointestinal: Minimal abdominal pain without distention and/or nausea/vomiting Physical Exam Physical Exam: Lying in bed comfortably Constitutional: well developed and well nourished; not ill appearing Eyes: PERRL, conjunctivae normal, anicteric sclerae ENMT: external ear and nose normal, oropharynx normal Neck: trachea midline, no thyromegaly Respiratory: no respiratory distress Auscultation: lungs clear to auscultation bilaterally Cardiovascular: Rate/Rhythm: regular rate and regular rhythm; not tachycardic Heart Sounds: normal S1 and normal S2; no murmur Vessels: posterior tibial pulses present and dorsalis pedis pulses present Extremities: no edema Gastrointestinal (Abdomen): Inspection/Auscultation: normal bowel sounds; abdomen not distended Percussion/Palpation: abdomen soft; abdomen nontender Neurologic: normal touch/pain/proprioception and moves all extremities; no focal motor deficits Psychiatric: A+Ox3, euthymic affect Lymphatic: no cervical or axillary lymphadenopathy Results & Data Results & Data ([facility]) Vital Signs (Past 12 Hours) Vital Signs Temp Pulse Resp BP BP Pulse Ox O2 Del Method 04/17/22 15:14 36.6 C 69 16 127/67 98 Room Air 04/17/22 07:34 36.4 C L 53 L 16 131/71 94 Room Air Laboratory Results Short CBC 04/17/22 Range/Units 08:14 WBC 12.08 H (4.8-10.8) K/ul Hgb 11.3 L (12.0-16.0) g/dl Hct 34.4 (34.1-44.9) % Plt Count 304 (130-400) K/uL Medications Administered Current Inpatient Medications Acetaminophen (Acetaminophen 500 Mg Tab) 1,000 mg PO Q8H DEANNE Stop: 05/14/22 22:59 Last Admin: 04/17/22 15:20 Dose: 1,000 mg Albuterol (Albut/Ipratrop 3mg/0.5mg Neb 3 Ml Vial) 3 ml NEB Q4R PRN; Protocol PRN Reason: shortness of breath Stop: 05/14/22 18:07 Allopurinol (Allopurinol 100 Mg Tab) 200 mg PO DAILY DEANNE Stop: 05/15/22 08:59 Last Admin: 04/17/22 08:53 Dose: 200 mg Cetirizine HCl (Cetirizine Hcl 10 Mg Tablet) 5 mg PO QPM [facility]ANNE Stop: 05/14/22 20:59 Last Admin: 04/16/22 20:13 Dose: 5 mg Dicyclomine HCl (Dicyclomine Hcl 10 Mg Cap) 10 mg PO QID PRN PRN Reason: Cramps Stop: 05/14/22 18:07 Lisinopril/HCTZ (Lisinopril/Hctz 20/12.5mg 1 Tab Tab) 2 tab PO DAILY DEANNE Stop: 05/15/22 08:59 Last Admin: 04/17/22 08:52 Dose: 2 tab Levothyroxine Sodium (Levothyroxine Sodium 75 Mcg Tablet) 75 mcg PO DAILYBB [facility]ANNE Stop: 05/15/22 06:29 Last Admin: 04/17/22 06:19 Dose: 75 mcg Lidocaine (Lidocaine 5% 1 Patch) 1 patch TD Q24H [facility]ANNE Stop: 05/14/22 20:14 Last Admin: 04/16/22 08:28 Dose: 1 patch Lorazepam (Lorazepam 0.5 Mg Tab) 0.5 mg PO HS PRN PRN Reason: Anxiety Stop: 05/14/22 18:07 Metoprolol Succinate (Metoprolol Succ 25mg Ext Rel Tab) 12.5 mg PO DAILY [facility] Stop: 05/15/22 08:59 Last Admin: 04/17/22 08:55 Dose: 12.5 mg Miscellaneous (Remove Lidoderm Patch) 1 each N/A DAILY@0815 [facility] Stop: 05/15/22 08:14 Last Admin: 04/17/22 08:52 Dose: 1 each Montelukast Sodium (Montelukast Sodium 10 Mg Tablet) 10 mg PO PM [facility] Stop: 05/14/22 20:59 Last Admin: 04/16/22 20:13 Dose: 10 mg Nitroglycerin (Nitroglycerin Sl 0.4 Mg/Tab Tab) 0.4 mg SL PRN PRN PRN Reason: chest pain Stop: 05/14/22 20:10 Paroxetine HCl (Paroxetine Hcl 10 Mg Tab) 30 mg PO QAM [facility] Stop: 05/15/22 08:59 Last Admin: 04/17/22 08:53 Dose: 30 mg Pravastatin Sodium (Pravastatin Sod 10 Mg Tab) 10 mg PO QPM [facility] Stop: 05/14/22 20:59 Last Admin: 04/16/22 20:13 Dose: 10 mg Prednisone (Prednisone 20 Mg Tab) 40 mg PO DAILY [facility] Stop: 05/15/22 08:59 Last Admin: 04/17/22 08:53 Dose: 40 mg Spironolactone (Spironolactone 12.5 Mg Tab) 12.5 mg PO DAILY [facility] Stop: 05/15/22 08:59 Last Admin: 04/17/22 08:53 Dose: 12.5 mg Tramadol HCl (Tramadol Hcl 50 Mg Tablet) 100 mg PO Q4H PRN PRN Reason: Pain Stop: 05/14/22 22:59 Warfarin Sodium (Warfarin Sod 1.25 Mg Tab) 1.25 mg PO We@1600 [facility] Stop: 05/15/22 15:59 Last Admin: 04/15/22 17:29 Dose: 1.25 mg Warfarin Sodium (Warfarin Sod 2.5 Mg Tab) 2.5 mg PO [id number]@1600 [facility] Stop: 05/16/22 15:59 Last Admin: 04/17/22 15:20 Dose: 2.5 mg (1) Chest pain Chest pain type: unspecified Qualified Code(s): R07.9 - Chest pain, unspecified (2) Moderate persistent asthma Asthma complication type: unspecified Qualified Code(s): J45.40 - Moderate persistent asthma, uncomplicated (3) Hypertension Hypertension type: essential hypertension Qualified Code(s): I10 - Essential (primary) hypertension (4) Hypothyroidism Hypothyroidism type: acquired Qualified Code(s): E03.9 - Hypothyroidism, unspecified
--- NOTE | 2022-04-17 19:06 | Discharge Summary ---
Date of Service April 17, 2022 Admission HPI Per Admitting Provider 82-year-old female with PMH dyslipidemia, hypothyroidism, gout, moderate persistent asthma, HTN, IBS, GERD, CKD stage III, history of pulmonary embolism on Coumadin, and other problems listed below who presents the ED for evaluation of chest pain and shortness of breath. Patient reports she traveled home from [place] 3 days ago from a 3-week trip. Patient reports that she has been generally feeling well. This morning, when patient woke up she reports that she had pain across the top of her chest. Pain was worse with minimal movement. She also reports associated shortness of breath. She then presented to the ED for further evaluation. Patient denies cough and sputum production. No fevers or chills. Over the past several months, patient reports GI issues after eating with cramping and occasional diarrhea. Patient denies lightheadedness, dizziness, diaphoresis, syncopal events. No urinary symptoms. In the ED, patient is saturating in the low 90s on room air. Labs show WBC 18 K, mildly supratherapeutic INR 3.6. CXR does not show any acute cardiopulmonary disease. Patient was given Tylenol, nebulizer, IV cefepime, IV magnesium, IV Solu-Medrol 60 mg. Admission Exam Per Admitting Provider Constitutional: WD/WN, vitals as above Eyes: PERRL, conjunctivae normal, anicteric sclerae ENMT: external ear and nose normal, oropharynx normal Respiratory: normal respiratory effort; no respiratory distress Auscultation: + diminished lung sounds Cardiovascular: Rate/Rhythm: regular rate and regular rhythm Vessels: normal peripheral pulses Extremities: no edema Chest (Breasts): Additional Comments: upper chest wall tenderness Gastrointestinal (Abdomen): normal bowel sounds, soft, nontender, no hepatosplenomegaly Musculoskeletal: no cyanosis or clubbing, extremities motor strength 5/5 Skin: no rashes, warm and dry Neurologic: PERRL, EOMI, accommodation nl, no face palsy, no dysarthria Psychiatric: A+Ox3, euthymic affect Principal Diagnosis Mild exacerbation of asthma, chest pain secondary to costochondritis, hypertension, chronic pulmonary embolism Discharge Exam Lying in bed comfortably Constitutional well developed and well nourished; not ill appearing Eyes PERRL, conjunctivae normal, anicteric sclerae ENMT external ear and nose normal, oropharynx normal Neck trachea midline, no thyromegaly Respiratory no respiratory distress Auscultation: lungs clear to auscultation bilaterally Cardiovascular Rate/Rhythm: regular rate and regular rhythm; not tachycardic Heart Sounds: normal S1 and normal S2; no murmur Vessels: posterior tibial pulses present and dorsalis pedis pulses present Extremities: no edema Gastrointestinal (Abdomen) Inspection/Auscultation: normal bowel sounds; abdomen not distended Percussion/Palpation: abdomen soft; abdomen nontender Neurologic normal touch/pain/proprioception and moves all extremities; no focal motor deficits Psychiatric A+Ox3, euthymic affect Lymphatic no cervical or axillary lymphadenopathy Discharge Data Allergies Allergy/AdvReac Type Severity Reaction Status Date / Time Sulfa (Sulfonamide Allergy Intermediate HIVES Verified 04/14/22 15:46 Antibiotics) Minoa And Derivatives AdvReac Intermediate MOUTH Verified 04/14/22 15:46 IRRITATION WITH FRESH FRUIT pineapple AdvReac Intermediate MOUTH Verified 04/14/22 15:46 IRRITATION WITH FRESH FRUIT Consultations 04/14/22 14:14 ED Decision to Admit Stat Ordered Studies 04/14/22 15:35 CT angio chest PE protocol Urgent Hospital Course (1) Shortness of breath: No more shortness of breath (2) Hypoxia: Has been saturating normally on room air and does not have any shortness of breath with exertion (3) Chest pain: Admitted to [facility] Patient presenting from home with reports of upper chest pain that is exacerbate by minimal movement and shortness of breath Chest pain reproducible with palpation on exam History of significant costochondritis with prior negative work of for ACS Started on Tylenol, Lidoderm patch, PRN tramadol. NSAIDs avoided due to underlying CKD. Chest pain is secondary to costochondritis Remains stable as of today No cardiac chest pain and the chest pain she is having is due to costochondritis (4) Moderate persistent asthma: CXR negative for acute cardiopulmonary findings. CTA chest negative for PE and other acute findings. Possible atelectasis noted. Hypoxia 87% on room air after neb, now saturating well on 2L O2 negative flu, RSV, COVID. Procal WNL Wheezing reported by ED provider --mild asthma exacerbation Given possible atelectasis, incentive spirometer ordered. PRN nebs s/p Solumedrol 60mg IV in the ED -- will continue with prednisone 40mg daily from tomorrow. This may also help treat costochondritis Has been getting prednisone No wheezing and chest remains clear on examination Denies any wheezing and/or shortness of breath and saturating normally on room air Walked in the hallway without any significant desaturation and/or symptoms Remained stable and does not have any respiratory symptoms Will be discharged home this afternoon (5) Leukocytosis: WBC 18k, afebrile, normal procalcitonin No clear source of infection at this time, UA pending S/p cefepime in the ED. Will monitor off antibiotics for now Has minimal abdominal pain and also loose stool We will check a stool for C. difficile Leukocytosis has been improving No antibiotics will be prescribed as of yet Leukocytosis has been improving and will monitor while she is in the hospital No indications of antibiotics yet Leukocytosis is resolved (6) Hypertension: BP controlled, continue lisinopril/HCTZ, metoprolol, spironolactone (7) History of pulmonary embolism: On Coumadin, INR 3.6 Hold Coumadin tonight, resume tomorrow pending INR INR is 2.6 and will restart Coumadin (8) Hypothyroidism: Continue levothyroxine DVT PROPHYLAXIS On Coumadin, INR 3.6 (9) Costochondritis, acute: Continue to use lidocaine patch and will be given on discharge (10) CKD (chronic kidney disease), stage III: Total Time Total Time Spent Total Time Spent (In Minutes): 35 minutes Discharge Plan Discharge Items Patient Disposition: Home - Self-Care Reason For Visit: shortness of breath Discharge Diagnosis: Mild exacerbation of asthma, chest pain secondary to costochondritis, hypertension, chronic pulmonary embolism Condition on Discharge: Good Activity: Resume your previous activity Non-emergency contact: Primary Care Provider Call non-emergency contact if: you have any medication questions and your sy mptoms worsen Follow-up/Referrals: Phil Maldonado MD [Primary Care Provider] - (Date & Time 04/20/2022 11:00 AM Provider Phil Maldonado MD Department General Internal Medicine [facility] ) Mechelle Velazco CRNP [Outside Practitioners] - (Date & Time 04/23/2022 10:30 AM Provider MINISTERIO Narvaez Department Pulmonary Medicine, [facility] ) Diet: Heart Healthy Addtl Attending Provider Instructions: Please take precautions to avoid fall Take your medications as advised Please keep appointment with your healthcare provider Pending Studies at Discharge: No Stand-Alone Forms: My [facility], Smoking Cessation Medications and DC Order Prescriptions: New prednisone 20 mg Tablet 40 mg PO DAILY 3 Days Qty: 6 0RF lidocaine 5 % Adhesive Patch,Medicated 1 patch transdermal Q24H 30 Days Qty: 30 0RF Continued ipratropium-albuterol 0.5 mg-3 mg(2.5 mg base)/3 mL Solution For Nebulization 1 dose INHALATION Q6 PRN (Reason: Shortness Of Breath Or Wheezing) spironolactone [Aldactone] 25 mg tablet 12.5 mg PO DAILY pravastatin 10 mg tablet 10 mg PO QPM paroxetine HCl [Paxil] 30 mg tablet 30 mg PO QAM albuterol sulfate 90 mcg/actuation Hfa Aerosol Inhaler 2 puff INHALATION Q6H PRN (Reason: Shortness Of Breath Or Wheezing) cholecalciferol (vitamin D3) [Vitamin D3] 1,000 unit Tablet 1,000 unit PO DAILY levocetirizine [Xyzal] 5 mg tablet 5 mg PO QPM metoprolol succinate [Toprol XL] 25 mg Tablet Extended Release 24 Hr 12.5 mg PO DAILY dicyclomine 10 mg Capsule 10 mg PO QID PRN (Reason: Cramps) lorazepam 1 mg tablet 1 mg PO TID PRN (Reason: Anxiety) lisinopril-hydrochlorothiazide 20-12.5 mg Tablet 2 tab PO DAILY montelukast [Singulair] 10 mg Tablet 10 mg PO PM warfarin 2.5 mg tablet 2.5 mg PO SUMOTUTHFRSA warfarin 2.5 mg tablet 1.25 mg PO WE allopurinol 100 mg tablet 200 mg PO DAILY levothyroxine 75 mcg tablet 75 mcg PO DAILY Discharge Orders: Discharge Order (Routine); Ordered 04/17/22 Ordered By: Alcides Guevara Admission Data Admit Date/Time: 04/16/22 13:43 Attending Provider: Alcides Guevara Admit Provider: Jacqui Gregory Primary Care Provider: Phil Maldonado Other Providers: Jacqui Gregory ; Marti Hinkle Other Interventions: Discharge Summary Assessment (RN) Last Done: 04/17/22 14:53
== END 2022-04-17 16:10 | disposition home or self-care (01) | DRG 202 ==
LOC: EDINP 11:30 → ED 11:30 → SUATTDRO 15:14 → 3W 21:33
DX: N18.30 Chronic kidney disease, stage 3 unspecified; J45.41 Moderate persistent asthma with (acute) exacerbation; J98.11 Atelectasis; I12.9 Hypertensive chronic kidney disease with stage 1 through stage 4 chronic kidney disease, or unspecified chronic kidney disease; I27.82 Chronic pulmonary embolism; M94.0 Chondrocostal junction syndrome [Tietze]; Z88.2 Allergy status to sulfonamides; K58.9 Irritable bowel syndrome, unspecified; M10.9 Gout, unspecified; Z79.890 Hormone replacement therapy; E03.9 Hypothyroidism, unspecified

== ENCOUNTER 2022-09-17 11:56 | Inpatient (IN) ==
[2022-09-17] MEDS ORDERED: OPTIRAY 320 125ml IV ONE (13:19)
[2022-09-17 13:34] LABS: Basophils # (auto) 0.08 K/uL (0-0.2); Basophils % (auto) 0.7 %; Eosinophils # (auto) 0.17 K/uL (0-0.50); Eosinophils % (auto) 1.6 %; Hematocrit (blood only) 39.5 % (37.0-47.0); Hemoglobin 12.8 g/dl (12.0-16.0); Immature Granulocytes # (auto) 0.05 K/uL (0.01-0.20); Immature Granulocytes % (auto) 0.5 %; Lymphocytes # (auto) 1.87 K/uL (1.2-3.4); Lymphocytes % (auto) 17.1 %; Mean Corpuscular Hemoglobin 31.9 pg (25.0-34.0); Mean Corpuscular Hgb Conc 32.4 g/dL (32.0-36.0); Mean Corpuscular Volume 98.5 fL (80.0-100.0); Mean Platelet Volume 10.8 fL (9.4-12.4); Monocytes # (auto) 0.73 K/uL (0.11-0.59); Monocytes % (auto) 6.7 %; Neutrophils # (auto) 8.04 K/uL (1.40-6.50); Neutrophils % (auto) 73.4 %; Platelet Count 361 K/uL (130-400); RDW Coefficient of Variation 14.3 % (11.5-14.5); RDW Standard Deviation 52.1 fL (36.4-46.3); Red Blood Count 4.01 M/uL (4.20-5.40); White Blood Count 10.94 K/ul (4.8-10.8)
--- NOTE | 2022-09-17 13:42 | XRay Report ---
XR chest 1V portable HISTORY: 82 years-old Female weakness, cough acute cough COMPARISON: 04/14/2022 TECHNIQUE: AP view of the chest FINDINGS: Cardiomediastinal and hilar silhouettes are within normal limits. Atherosclerosis of the aorta. No pn eumothorax, pleural effusion, airspace consolidation or pulmonary edema. Degenerative changes of the shoulders and spine. Mild mid thoracic dextroscoliosis. Cholecystectomy. IMPRESSION: No acute process. ACT 112: Negative or not required by law. The above report was generated using voice recognition software. It may contain grammatical, syntax o r spelling errors. Electronically signed by: Chris Carrillo M.D. 09/17/2022 1:41 PM
[2022-09-17 13:45] LABS: Alanine Aminotransferase 11 U/L (7-52); Albumin Globulin Ratio 1.3 (0.9-2); Alkaline Phosphatase 56 U/L (34-104); Anion Gap 7 (3-11); Aspartate Aminotransferase 14 U/L (13-39); BUN Creatinine Ratio 26.6 (10-20); Bilirubin,Total 0.4 mg/dl (0.2-1.0); Blood Urea Nitrogen 33 mg/dl (6-23); Calcium 9.8 mg/dl (8.6-10.3); Carbon Dioxide 24 mmol/L (21-32); Chloride 105 mmol/L (98-107); Est GFR (African American) 47.5 ml/min; Globulin 3.2 gm/dl (2.5-4.0); Glucose 74 mg/dl (70-99(Fasting)); Magnesium 1.7 mg/dl (1.7-2.4); Potassium 4.1 mmol/L (3.5-5.1); Sodium 136 mmol/L (136-145); Total Protein 7.2 gm/dl (6.0-8.3)
[2022-09-17 13:47] LABS: Troponin I High Sensitivity 6.7 pg/ml (0-14)
[2022-09-17 13:49] LABS: INR 1.8 (0.9-1.1); Prothrombin Time 19.1 Seconds (9.0-12.0)
--- NOTE | 2022-09-17 13:50 | CT Scan Report ---
CT angio neck with con, CT head/brain wo con, CT angio head w con CLINICAL HISTORY: speech issues, LLE weak TECHNIQUE: Contiguous axial CT images of the head were acquired from the base of the skull to the grayson elias without intravenous contrast administration. CT angiography of the head and neck was performed f ollowing intravenous administration of iodinated contrast. Coronal and sagittal MIPS were obtained fr om the axial data set and were submitted for review. Automated dose lowering techniques and/or adjus tment according to patient size were utilized for this examination. All measurements were calculated based on NASCET criteria. CT DOSE: 1904.39 mGy.cm Comparison: None available at the time of this dictation. FINDINGS: CT head: There is no acute intracranial hemorrhage or evidence of acute territorial infarction. No sh ift of the midline structures, mass effect, or extra-axial abnormalities are shown. Lungs and soft tissues are unremarkable. CTA Neck: A 3 vessel aortic arch is shown. Atherosclerotic plaque is present in the aortic arch and at the origin of the great vessels. The common carotid, external carotid, cervical segments of the in ternal carotid arteries, and the cervical segments of the retropharyngeal course of the internal glass tid arteries noted. Vertebral arteries are patent without hemodynamically significant stenosis. The l eft vertebral artery is dominant. CTA Head: The anterior and posterior cerebral circulations are patent. origin of the bilateral posterior cerebral arteries noted. IMPRESSION: 1. No acute intracranial hemorrhage, evidence of acute territorial infarction, or other acute intrac ranial disease process. 2. No occlusion, hemodynamically significant stenosis, or dissection in the major cervical arteries. 3. No occlusion, hemodynamically significant stenosis, aneurysm, dissection, or arteriovenous malfor mation in the major intracranial arteries. Assessment of stenosis of the internal carotid arteries is based on NASCET criteria. ACT 112: Negative or not required by law. Electronically signed by: Librado Cabral M.D. 09/17/2022 1:49 PM
--- NOTE | 2022-09-17 13:52 | Emergency Department Note ---
Impression & Plan Stroke-like symptoms, HTN (hypertension) ED Provider Note Provider: Arron Person MD DATE OF SERVICE: 09/17/2022 CHIEF COMPLAINT: Fogginess, dragging left foot HISTORY OF PRESENT ILLNESS: Patient is a 82-year-old female history of hypothyroidism, gout, asthma, IBS, CKD, and pulmonary embolism on Coumadin presenting here today referred from the [facility] outpatient lab where she is getting her INR checked for some issues related to her left leg. Patient states he woke this morning and was feeling sort of foggy like there is a fish bowl on her head and things feel a bit off. States he is having a bit of tingling and maybe little weakness in her left foot. Occasionally a bit of tingling in the left foot. is reported for the last 2 to 3 days she has been dragging her left foot. Denies any difficulty with slurred speech but states she is having some difficulty getting her words out. She is clear exactly been. Denies history of similar but strong family history of stroke reported. No trauma reported or syncope. Denies any headache or other pain. She is concerned she could have a stroke or TIA. PAST MEDICAL HISTORY: As noted above MEDICATIONS: Reviewed home medication list SOCIAL HISTORY: , non-smoker PHYSICAL EXAM: GENERAL: alert and oriented in no acute distress on stretcher at bedside Head: normocephalic and atraumatic EYES: No injection, discharge or icterus. PERRL, EOMI. NECK: Trachea midline. Supple. ENT: Mucous membranes pink and moist. LUNGS: Airway patent. No retractions or tachypnea HEART: Regular rate and rhythm. No chest wall tenderness ABDOMEN: Soft and non-tender, without guarding or rebound. SKIN: Acyanotic, warm, dry, without rashes EXTREMITIES: Without swelling, tenderness or deformity NEUROLOGICAL: No significant appreciable aphasia on exam here. No facial droop or slurred speech. Sensation to gross touch normal. EK bpm sinus rhythm first-degree AV block. No PVC or PAC. No acute ST segment elevation or depression with a QTc of 425. CONTINUOUS CARDIAC MONITORING: was ordered and showed a heart rate of 60s bpm in first-degree AV block Patient's laboratory studies and imaging reviewed. Differential includes Infection, dehydration, metabolic abnormality, hypo/hyperglycemia, electrolyte disturbance, anemia, hypoxia, cardiac sources, intracerebral event, toxicologic, neurologic, as well as other pathologies. IMPRESSION/MEDICAL DECISION MAKING: Patient with some reported mild weakness in the left foot maybe left leg as well as may be some aphasia although hard to appreciate much aphasia at this time. States he feels like she has a bit of fish bowl off foggy feeling hard to pin do wn but denies any headache. Some tingling at times in left foot but no clear numbness or weakness on exam. No obvious facial droop. Strong family history of stroke reported by the patient. On Coumadin. Trauma. No significant palpitations, cardiac, or infectious symptoms otherwise reported. An ticoagulated without a clear last known well not a candidate for acute thrombolytic therapy. Blood work without anemia with a very slight leukocytosis of 10.9 of unclear etiology but downtrending from previous values in the system. Negative COVID. Normal TSH. No signs of hepatitis or cardiac injury with normal LFTs and troponin. No significant renal dysfunction noted. CT report per radiology without evidence of any significant stenoses, dissection, or aneurysms and no evidence of acute intracranial hemorrhage or obvious CT findings of infarct. Obvious concern given the fact that reports her left toes seem to be dragging due to a bit of weakness. At this point discussed with him staying for further neurological work-up and evaluation including likely MRI. DIAGNOSIS: Left-sided weakness, hypertension DISPOSITION: Hospitalist will evaluate Patient was agreeable with this plan. 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: No Beliefs That Will Affect Care: None marital status: Current Living Situation: Spouse current occupational status: retired Feels Safe at Home: Yes Assistive Devices: None Allergies Allergies Allergy/AdvReac Type Severity Reaction Status Date / Time Sulfa (Sulfonamide Allergy Intermediate HIVES Verified 09/17/22 14:52 Antibiotics) Home Meds Home Medications Medication Instructions Recorded Confirmed albuterol sulfate 90 mcg/actuation 2 puff inhalation Q6H PRN 02/20/18 09/17/22 aerosol inhaler Shortness Of Breath Or Wheezing cholecalciferol (vitamin D3) 25 1,000 unit PO DAILY 02/20/18 09/17/22 mcg (1,000 unit) tablet (Vitamin D3) dicyclomine 10 mg capsule 10 mg PO QID PRN Cramps 02/20/18 09/17/22 ipratropium 0.5 mg-albuterol 3 mg 1 dose inhalation Q6 PRN Shortness 02/20/18 09/17/22 (2.5 mg base)/3 mL nebulization Of Breath Or Wheezing soln levocetirizine 5 mg tablet (Xyzal) 5 mg PO QPM 02/20/18 09/17/22 metoprolol succinate 25 mg 12.5 mg PO DAILY 02/20/18 09/17/22 tablet,extended release 24 hr (Toprol XL) paroxetine HCl 30 mg tablet (Paxil) 30 mg PO QAM 02/20/18 09/17/22 pravastatin 10 mg tablet 10 mg PO QPM 02/20/18 09/17/22 spironolactone 25 mg tablet 25 mg PO DAILY 02/20/18 09/17/22 (Aldactone) lorazepam 1 mg tablet 1 mg PO TID PRN Anxiety 02/24/18 09/17/22 lisinopril 20 2 tab PO DAILY 12/29/18 09/17/22 mg-hydrochlorothiazide 12.5 mg tablet montelukast 10 mg tablet 10 mg PO PM 12/29/18 09/17/22 (Singulair) allopurinol 100 mg tablet 200 mg PO DAILY 04/14/22 09/17/22 levothyroxine 75 mcg tablet 75 mcg PO DAILY 04/14/22 09/17/22 warfarin 2.5 mg tablet See Rx Instructions .Route .COMPLEX 04/14/22 09/17/22 omeprazole 40 mg capsule,delayed 40 mg PO QAM 09/17/22 09/17/22 release Results & Data (ED) Vital Signs Vital Signs - 24 hr 09/17/22 12:02 09/17/22 12:08 09/17/22 12:08 Temperature 36.8 C 36.8 C Temperature Source Oral Oral Pulse Rate 65 65 Pulse Rate [Apical] 65 Pulse Rhythm [Apical] Regular Pulse Strength [Apical] Respiratory Rate 18 18 Respiratory Effort / Characteristics Non-Labored Spontaneous Non-Labored Respiratory Depth Normal Normal Respiratory Pattern Regular Regular Blood Pressure 162/76 H Blood Pressure [Right Arm] 162/76 H Blood Pressure Mean 104 Blood Pressure Mean [Right Arm] 104 Pulse Oximetry 97 97 Oxygen Delivery Method Room Air Room Air Sepsis Recent Fever Within 48 Hours No Sepsis New/Unexplained Change in Mental Status No Sepsis Action Taken by Nursing No Action Required 09/17/22 12:44 09/17/22 13:18 09/17/22 14:35 Temperature Temperature Source Pulse Rate Pulse Rate [Apical] 64 62 Pulse Rhythm [Apical] Regular Pulse Strength [Apical] Normal Respiratory Rate 18 18 Respiratory Effort / Characteristics Non-Labored Non-Labored Respiratory Depth Normal Normal Respiratory Pattern Regular Regular Blood Pressure Blood Pressure [Right Arm] 148/53 H 164/58 H Blood Pressure Mean Blood Pressure Mean [Right Arm] 84 93 Pulse Oximetry 97 94 97 Oxygen Delivery Method Room Air Room Air Room Air Sepsis Recent Fever Within 48 Hours Sepsis New/Unexplained Change in Mental Status Sepsis Action Taken by Nursing Laboratory Data 09/17/22 12:03 09/17/22 12:03 Lab Results 09/17/22 09/17/22 09/17/22 Range/Units 12:03 12:03 12:03 WBC 10.94 H (4.8-10.8) K/ul RBC 4.01 L (4.20-5.40) M/uL Hgb 12.8 (12.0-16.0) g/dl Hct 39.5 (37.0-47.0) % MCV 98.5 (80.0-100.0) fL MCH 31.9 (25.0-34.0) pg MCHC 32.4 (32.0-36.0) g/dL RDW Std Deviation 52.1 H (36.4-46.3) fL RDW Coeff of Madhuri 14.3 (11.5-14.5) % Plt Count 361 (130-400) K/uL MPV 10.8 (9.4-12.4) fL Immature Gran % (Auto) 0.5 % Neut % (Auto) 73.4 % Lymph % (Auto) 17.1 % [place] % (Auto) 6.7 % Eos % (Auto) 1.6 % Baso % (Auto) 0.7 % Neut # (Auto) 8.04 H (1.40-6.50) K/uL Lymph # (Auto) 1.87 (1.2-3.4) K/uL [place] # (Auto) 0.73 H (0.11-0.59) K/uL Eos # (Auto) 0.17 (0-0.50) K/uL Baso # (Auto) 0.08 (0-0.2) K/uL Immature Gran # (Auto) 0.05 (0.01-0.20) K/uL PT 19.1 H (9.0-12.0) Seconds INR 1.8 H (0.9-1.1) Sodium 136 (136-145) mmol/L Potassium 4.1 (3.5-5.1) mmol/L Chloride 105 (98-107) mmol/L Carbon Dioxide 24 (21-32) mmol/L Anion Gap 7 (3-11) BUN 33 H (6-23) mg/dl Creatinine 1.24 H (0.6-1.2) mg/dl Est Cr Clr Drug Dosing Not Reportable Est GFR ( Amer) 47.5 ml/min Est GFR (Non-Af Amer) 41.0 ml/min BUN/Creatinine Ratio 26.6 H (10-20) Glucose 74 (70-99(Fasting)) mg/dl Calcium 9.8 (8.6-10.3) mg/dl Magnesium 1.7 (1.7-2.4) mg/dl Total Bilirubin 0.4 (0.2-1.0) mg/dl AST 14 (13-39) U/L ALT 11 (7-52) U/L Alkaline Phosphatase 56 (34-104) U/L Troponin I High Sens 6.7 (0-14) pg/ml Total Protein 7.2 (6.0-8.3) gm/dl Albumin 4.0 (3.4-5.0) gm/dl Globulin 3.2 (2.5-4.0) gm/dl Albumin/Globulin Ratio 1.3 (0.9-2) TSH (0.300-4.500) uIu/ml SARS-CoV-2, RNA, NAAT (NEGATIVE) 09/17/22 09/17/22 Range/Units 12:03 12:47 WBC (4.8-10.8) K/ul RBC (4.20-5.40) M/uL Hgb (12.0-16.0) g/dl Hct (37.0-47.0) % MCV (80.0-100.0) fL MCH (25.0-34.0) pg MCHC (32.0-36.0) g/dL RDW Std Deviation (36.4-46.3) fL RDW Coeff of Madhuri (11.5-14.5) % Plt Count (130-400) K/uL MPV (9.4-12.4) fL Immature Gran % (Auto) % Neut % (Auto) % Lymph % (Auto) % [place] % (Auto) % Eos % (Auto) % Baso % (Auto) % Neut # (Auto) (1.40-6.50) K/uL Lymph # (Auto) (1.2-3.4) K/uL [place] # (Auto) (0.11-0.59) K/uL Eos # (Auto) (0-0.50) K/uL Baso # (Auto) (0-0.2) K/uL Immature Gran # (Auto) (0.01-0.20) K/uL PT (9.0-12.0) Seconds INR (0.9-1.1) Sodium (136-145) mmol/L Potassium (3.5-5.1) mmol/L Chloride (98-107) mmol/L Carbon Dioxide (21-32) mmol/L Anion Gap (3-11) BUN (6-23) mg/dl Creatinine (0.6-1.2) mg/dl Est Cr Clr Drug Dosing Est GFR ( Amer) ml/min Est GFR (Non-Af Amer) ml/min BUN/Creatinine Ratio (10-20) Glucose (70-99(Fasting)) mg/dl Calcium (8.6-10.3) mg/dl Magnesium (1.7-2.4) mg/dl Total Bilirubin (0.2-1.0) mg/dl AST (13-39) U/L ALT (7-52) U/L Alkaline Phosphatase (34-104) U/L Troponin I High Sens (0-14) pg/ml Total Protein (6.0-8.3) gm/dl Albumin (3.4-5.0) gm/dl Globulin (2.5-4.0) gm/dl Albumin/Globulin Ratio (0.9-2) TSH 1.767 (0.300-4.500) uIu/ml SARS-CoV-2, RNA, NAAT NEGATIVE (NEGATIVE) Administered Medications Discontinued Medications Ioversol (Optiray 320 125ml) 120 ml IV ONCE ONE Stop: 09/17/22 13:20 Last Admin: 09/17/22 13:19 Dose: 120 ml Documented By: ISABEL Imaging Data Radiologist's Impression: Chest X-Ray 09/17/22 12:38 XR chest 1V portable HISTORY: 82 years-old Female weakness, cough acute cough COMPARISON: 04/14/2022 TECHNIQUE: AP view of the chest FINDINGS: Cardiomediastinal and hilar silhouettes are within normal limits. Atherosclerosis of the aorta. No pneumothorax, pleural effusion, airspace consolidation or pulmonary edema. Degenerative changes of the shoulders and spine. Mild mid thoracic dextroscoliosis. Cholecystectomy. IMPRESSION: No acute process. ACT 112: Negative or not required by law. The above report was generated using voice recognition software. It may contain grammatical, syntax or spelling errors. Electronically signed by: Chris Carrillo M.D. 09/17/2022 1:[address] 09/17/22 12:38 CT angio neck with con, CT head/brain wo con, CT angio head w con CLINICAL HISTORY: speech issues, LLE weak TECHNIQUE: Contiguous axial CT images of the head were acquired from the base of the skull to the vertex without intravenous contrast administration. CT angiography of the head and neck was performed following intravenous administration of iodinated contrast. Coronal and sagittal MIPS were obtained from the axial data set and were submitted for review. Automated dose lowering techniques and/or adjustment according to patient size were utilized for this examination. All measurements were calculated based on NASCET criteria. CT DOSE: 1904.39 mGy.cm Comparison: None available at the time of this dictation. FINDINGS: CT head: There is no acute intracranial hemorrhage or evidence of acute territorial infarction. No shift of the midline structures, mass effect, or extra-axial abnormalities are shown. Lungs and soft tissues are unremarkable. CTA Neck: A 3 vessel aortic arch is shown. Atherosclerotic plaque is present in the aortic arch and at the origin of the great vessels. The common carotid, external carotid, cervical segments of the internal carotid arteries, and the cervical segments of the retropharyngeal course of the internal carotid arteries noted. Vertebral arteries are patent without hemodynamically significant sten osis. The left vertebral artery is dominant. CTA Head: The anterior and posterior cerebral circulations are patent. origin of the bilateral posterior cerebral arteries noted. IMPRESSION: 1. No acute intracranial hemorrhage, evidence of acute territorial infarction, or other acute intracranial disease process. 2. No occlusion, hemodynamically significant stenosis, or dissection in the major cervical arteries. 3. No occlusion, hemodynamically significant stenosis, aneurysm, dissection, or arteriovenous malformation in the major intracranial arteries. Assessment of stenosis of the internal carotid arteries is based on NASCET criteria. ACT 112: Negative or not required by law. Electronically signed by: Librado Cabral M.D. 09/17/2022 1:49 PM Head CTA 09/17/22 12:38 CT angio neck with con, CT head/brain wo con, CT angio head w con CLINICAL HISTORY: speech issues, LLE weak TECHNIQUE: Contiguous axial CT images of the head were acquired from the base of the skull to the vertex without intravenous contrast administration. CT angiography of the head and neck was performed following intravenous administration of iodinated contrast. Coronal and sagittal MIPS were obtained from the axial data set and were submitted for review. Automated dose lowering techniques and/or adjustment according to patient size were utilized for this examination. All measurements were calculated based on NASCET criteria. CT DOSE: 1904.39 mGy.cm Comparison: None available at the time of this dictation. FINDINGS: CT head: There is no acute intracranial hemorrhage or evidence of acute territorial infarction. No shift of the midline structures, mass effect, or extra-axial abnormalities are shown. Lungs and soft tissues are unremarkable. CTA Neck: A 3 vessel aortic arch is shown. Atherosclerotic plaque is present in the aortic arch and at the origin of the great vessels. The common carotid, external carotid, cervical segments of the internal carotid arteries, and the cervical segments of the retropharyngeal course of the internal carotid arteries noted. Vertebral arteries are patent without hemodynamically significant stenosis. The left vertebral artery is dominant. CTA Head: The anterior and posterior cerebral circulations are patent. origin of the bilateral posterior cerebral arteries noted. IMPRESSION: 1. No acute intracranial hemorrhage, evidence of acute territorial infarction, or other acute intracranial disease process. 2. No occlusion, hemodynamically significant stenosis, or dissection in the major cervical arteries. 3. No occlusion, hemodynamically significant stenosis, aneurysm, dissection, or arteriovenous malformation in the major intracranial arteries. Assessment of stenosis of the internal carotid arteries is based on NASCET criteria. ACT 112: Negative or not required by law. Electronically signed by: Librado Cabral M.D. 09/17/2022 1:49 PM Neck CTA 09/17/22 12:38 CT angio neck with con, CT head/brain wo con, CT angio head w con CLINICAL HISTORY: speech issues, LLE weak TECHNIQUE: Contiguous axial CT images of the head were acquired from the base of the skull to the vertex without intravenous contrast administration. CT angiography of the head and neck was performed following intravenous administration of iodinated contrast. Coronal and sagittal MIPS were obtained from the axial data set and were submitted for review. Automated dose lowering techniques and/or adjustment according to patient size were utilized for this examination. All measurements were calculated based on NASCET criteria. CT DOSE: 1904.39 mGy.cm Comparison: None available at the time of this dictation. FINDINGS: CT head: There is no acute intracranial hemorrhage or evidence of acute territorial infarction. No shift of the midline structures, mass effect, or extra-axial abnormalities are shown. Lungs and soft tissues are unremarkable. CTA Neck: A 3 vessel aortic arch is shown. Atherosclerotic plaque is present in the aortic arch and at the origin of the great vessels. The common carotid, external carotid, cervical segments of the internal carotid arteries, and the cervical segments of the retropharyngeal course of the internal carotid arteries noted. Vertebral arteries are patent without hemodynamically significant stenosis. The left vertebral artery is dominant. CTA Head: The anterior and posterior cerebral circulations are patent. origin of the bilateral posterior cerebral arteries noted. IMPRESSION: 1. No acute intracranial hemorrhage, evidence of acute territorial infarction, or other acute intracranial disease process. 2. No occlusion, hemodynamically significant stenosis, or dissection in the major cervical arteries. 3. No occlusion, hemodynamically significant stenosis, aneurysm, dissection, or arteriovenous malformation in the major intracranial arteries. Assessment of stenosis of the internal carotid arteries is based on NASCET criteria. ACT 112: Negative or not required by law. Electronically signed by: Librado Cabral M.D. 09/17/2022 1:49 PM Discharge Plan Visit Data Chief Complaint: TIA Symptoms ED Provider: Arron Person Discharge Problem: Stroke-like symptoms, HTN (hypertension) Patient Disposition: Being Evaluated by Hospitalist Forms [facility] Prescriptions Prescriptions: No Action ipratropium-albuterol 0.5 mg-3 mg(2.5 mg base)/3 mL Solution For Nebulization 1 dose INHALATION Q6 PRN (Reason: Shortness Of Breath Or Wheezing) spironolactone [Aldactone] 25 mg tablet 25 mg PO DAILY pravastatin 10 mg tablet 10 mg PO QPM paroxetine HCl [Paxil] 30 mg tablet 30 mg PO QAM albuterol sulfate 90 mcg/actuation Hfa Aerosol Inhaler 2 puff INHALATION Q6H PRN (Reason: Shortness Of Breath Or Wheezing) cholecalciferol (vitamin D3) [Vitamin D3] 1,000 unit Tablet 1,000 unit PO DAILY levocetirizine [Xyzal] 5 mg tablet 5 mg PO QPM metoprolol succinate [Toprol XL] 25 mg Tablet Extended Release 24 Hr 12.5 mg PO DAILY dicyclomine 10 mg Capsule 10 mg PO QID PRN (Reason: Cramps) lorazepam 1 mg tablet 1 mg PO TID PRN (Reason: Anxiety) lisinopril-hydrochlorothiazide 20-12.5 mg Tablet 2 tab PO DAILY montelukast [Singulair] 10 mg Tablet 10 mg PO PM omeprazole 40 mg capsule,delayed release(DR/EC) 40 mg PO QAM warfarin 2.5 mg tablet See Rx Instructions .ROUTE .COMPLEX Rx Instructions: TAKES QPM. TAKES 2.5 MG ON SUN, TUES, WED, & FRI. THEN 1.25 MG ON MON, THURS, & SAT. allopurinol 100 mg tablet 200 mg PO DAILY levothyroxine 75 mcg tablet 75 mcg PO DAILY Referrals Referrals: Phil Maldonado MD [Primary Care Provider] -
--- NOTE | 2022-09-17 14:18 | Electrocardiogram Report ---
Test Reason : Blood Pressure : / mmHG Vent. Rate : 063 BPM Atrial Rate : 063 BPM P-R Int : 210 ms QRS Dur : 074 ms QT Int : 416 ms P-R-T Axes : 036 022 037 degrees QTc Int : 425 ms Sinus rhythm with 1st degree A-V block Low voltage QRS Borderline ECG When compared with ECG of 14-APR-2022 12:02, [place] interval has increased Confirmed by Luis Diane ([id number]) on 09/17/2022 2:18:17 PM Referred By: REFERRED SELF Confirmed By:Luis Diane
--- NOTE | 2022-09-17 15:04 | History & Physical Report ---
Date of Service September 17, 2022 Assessment & Plan (1) Stroke-like symptoms: (2) Cough: (3) HTN (hypertension): (4) CKD (chronic kidney disease), stage III: (5) CKD (chronic kidney disease), stage III: (6) History of pulmonary embolism: Plan This is an 82-year-old female who has significant past medical history of HTN, HLD, hypothyroidism, gout, moderate persistent asthma, renal artery aneurysm, IBS, GERD, CKD stage III, age-related osteoporosis, history of PE on warfarin an d generalized anxiety disorder who presented to ED secondary to weakness, dragging of left foot and violent cough for several weeks. Stroke like sx - pt reported L sided weakness, L foot drag, numbness to L foot and occasional aphasia/memory loss admit to tele consult neuro - pt exam also mimicking signs/features of parkinsons? request neuro eval obtain MRI brain echocardiogram PT/OT/ST Head CT/Head and Neck CTA negative for occlusion/hemorrhage Cough Asthma - moderate persistent ? if exacerbation pt w/o wheezing but continued cough will trial prednisone taper is already on PPI consider trial of lisinopril as well at discretion of PCP pt has been on dulera for some time, consider switched to Breo 200mcg at d/c will need pulm f/u as OP, had Spirometry as OP which was normal also on xyzal and singulair Hx of pE continue warfarin, INR 1.8 here, but 2.0 at [facility] today continue home regimen CKD 3 cr 1.2 avoid nephrotoxic agents HTN continue lisinopril/hctz, metoprolol, bp stable Gout continue allopurinol DVT ppx: warfarin FULL CODE PCP: Irene Dispo: admit to tele, likely d/c tomorrow after stroke w/u Pt was seen and examined in collaboration with Dr. Esquivel, please see addendum History of Present Illness Chief Complaint: Fogginess and dragging of left foot. Primary Care Provider: Phil Maldonado MD This is an 82-year-old female who has significant past medical history of HTN, HLD, hypothyroidism, gout, moderate persistent asthma, renal artery aneurysm, IBS, GERD, CKD stage III, age-related osteoporosis, history of PE on warfarin and generalized anxiety disorder who presented to ED secondary to weakness, dragging of left foot and violent cough for several weeks. Patient's is at bedside who is a pharmacist. Patient initially presents due to violent cough that has been ongoing for the past 1 to 2 months and ends up resulting in vomiting. She recently had EGD and was thought may be secondary to GERD and placed on PPI. Her symptoms have not improved since this. She also has moderate asthma for which she is on Dulera twice daily 4. She admits to taking her albuterol inhaler 7-8 times a day. She complains of dyspnea on exertion but denies any shortness breath at rest. She also complains of associated, "fogginess of her brain," stating that a lot of times she knows what she wants to say and has a hard time getting it out, shuffling gait, dragging of her left foot, numbness to her left foot and overall just feeling, "off." also reports tremors. She denies any recent illness, rash or tick bite. She is not outdoors very much. She denies fever, chills, sweats, lightheadedness, presyncope, chest pain, hemoptysis, nausea, vomiting, abdominal pain or change in bowel or urinary habits. She does complain of feeling, "off balance and leaning to her left." She states occasionally she does run into things. She denies any falls or change in vision. Currently complains of frontal headache. Allergies Allergy/AdvReac Type Severity Reaction Status Date / Time Sulfa (Sulfonamide Allergy Intermediate HIVES Verified 09/17/22 14:52 Antibiotics) Home Medications Medication Instructions Recorded Confirmed Type albuterol sulfate 90 mcg/actuation 2 puff inhalation Q6H PRN 02/20/18 09/17/22 History aerosol inhaler Shortness Of Breath Or Wheezing cholecalciferol (vitamin D3) 25 1,000 unit PO DAILY 02/20/18 09/17/22 History mcg (1,000 unit) tablet (Vitamin D3) dicyclomine 10 mg capsule 10 mg PO QID PRN Cramps 02/20/18 09/17/22 History ipratropium 0.5 mg-albuterol 3 mg 1 dose inhalation Q6 PRN Shortness 02/20/18 09/17/22 History (2.5 mg base)/3 mL nebulization Of Breath Or Wheezing soln levocetirizine 5 mg tablet (Xyzal) 5 mg PO QPM 02/20/18 09/17/22 History metoprolol succinate 25 mg 12.5 mg PO DAILY 02/20/18 09/17/22 History tablet,extended release 24 hr (Toprol XL) paroxetine HCl 30 mg tablet (Paxil) 30 mg PO QAM 02/20/18 09/17/22 History pravastatin 10 mg tablet 10 mg PO QPM 02/20/18 09/17/22 History spironolactone 25 mg tablet 25 mg PO DAILY 02/20/18 09/17/22 History (Aldactone) lorazepam 1 mg tablet 1 mg PO TID PRN Anxiety 02/24/18 09/17/22 History lisinopril 20 2 tab PO DAILY 12/29/18 09/17/22 History mg-hydrochlorothiazide 12.5 mg tablet montelukast 10 mg tablet 10 mg PO PM 12/29/18 09/17/22 History (Singulair) allopurinol 100 mg tablet 200 mg PO DAILY 04/14/22 09/17/22 History levothyroxine 75 mcg tablet 75 mcg PO DAILY 04/14/22 09/17/22 History warfarin 2.5 mg tablet See Rx Instructions .Route .COMPLEX 04/14/22 09/17/22 History mometasone-formoterol HFA 200 2 inh inhalation BID 09/17/22 09/17/22 History mcg-5 mcg/actuation aerosol inhaler (Dulera) omeprazole 40 mg capsule,delayed 40 mg PO QAM 09/17/22 09/17/22 History release Past Med/Surg History Medical History Aneurysm of right renal artery Chronic gout CKD (chronic kidney disease), stage III Dyslipidemia History of pulmonary embolism Hypertension Hypothyroidism IBS (irritable bowel syndrome) Moderate persistent asthma Surgical History History of cholecystectomy Family History Father Hypertension Mother Stroke Other Family history non-contributory Social History Smoking Status: Never smoker Second Hand Exposure: Yes; Hx Alcohol Use: No Hx Substance Use: No Preferred Language: Guatemalan Communication Ability: Effective Home Health Care Case Manager Required: No Beliefs That Will Affect Care: None marital status: Current Living Situation: Spouse current occupational status: retired Feels Safe at Home: Yes Assistive Devices: Cane, Hearing Aid - Bilateral and Walker Review of Systems Review of Systems: All systems reviewed & are unremarkable except as noted in HPI & below Physical Exam Physical Exam: Constitutional: WD/WN, elderly, F, appears anxious, vitals as above, NAD, sitting up in bed, pleasant, conversing easily Head: Normocephalic, Atraumatic Eyes: PERRL, conjunctivae normal, anicteric sclerae ENMT: external ear and nose normal, oropharynx normal Neck: trachea midline, no thyromegaly normal visual inspection Respiratory: normal respiratory effort, lungs clear to auscultation, no wheeze, rales, rhonchi. Normal insp/exp effort, no accessory muscle use Cardiovascular: RRR, no murmur, no edema Vessels: no JVD or carotid bruit Chest: normal inspection of chest Abdomen: normal bowel sounds, soft, nontender, no hepatosplenomegaly Musculoskeletal: no cyanosis or clubbing, extremities motor strength 5/5 on R 4/5 on Left, Skin: no rashes, warm and dry normal turgor Neurologic: PERRL, EOMI, accommodation nl, no face palsy, no dysarthria CN's II-XI intact bilaterally and moves all extremities, point to point intact, heel to cho intact, LUE/LLE weakness appreciated along with difficulty with fine motor movements of LUE. Negative pronator drift, +cogwheeling on left, slight tremor apprecatied on R, masked facies Psychiatric: A+Ox3, euthymic affect Lymphatic: no cervical or axillary lymphadenopathy : deferred Results & Data Results & Data Vital Signs (Past 12 Hours) Vital Signs Temp Pulse Pulse Resp BP BP Pulse Ox 09/17/22 14:35 62 18 164/58 H 97 09/17/22 13:18 64 18 148/53 H 94 09/17/22 12:44 97 09/17/22 12:08 36.8 C 65 18 162/76 H 97 09/17/22 12:08 36.8 C 65 18 162/76 H 97 09/17/22 12:02 65 O2 Del Method 09/17/22 14:35 Room Air 09/17/22 13:18 Room Air 09/17/22 12:44 Room Air 09/17/22 12:08 Room Air 09/17/22 12:08 Room Air 09/17/22 12:02 Diagnostic Findings Chest X-Ray 09/17/22 12:38 XR chest 1V portable HISTORY: 82 years-old Female weakness, cough acute cough COMPARISON: 04/14/2022 TECHNIQUE: AP view of the chest FINDINGS: Cardiomediastinal and hilar silhouettes are within normal limits. Atherosclerosis of the aorta. No pneumothorax, pleural effusion, airspace consolidation or pulmonary edema. Degenerative changes of the shoulders and spine. Mild mid thoracic dextroscoliosis. Cholecystectomy. IMPRESSION: No acute process. ACT 112: Negative or not required by law. The above report was generated using voice recognition software. It may contain grammatical, syntax or spelling errors. Electronically signed by: Chris Carrillo M.D. 09/17/2022 1:[address] 09/17/22 12:38 CT angio neck with con, CT head/brain wo con, CT angio head w con CLINICAL HISTORY: speech issues, LLE weak TECHNIQUE: Contiguous axial CT images of the head were acquired from the base of the skull to the vertex without intravenous contrast administration. CT angiography of the head and neck was performed following intravenous administration of iodinated contrast. Coronal and sagittal MIPS were obtained from the axial data set and were submitted for review. Automated dose lowering techniques and/or adjustment according to patient size were utilized for this examination. All measurements were calculated based on NASCET criteria. CT DOSE: 1904.39 mGy.cm Comparison: None available at the time of this dictation. FINDINGS: CT head: There is no acute intracranial hemorrhage or evidence of acute territorial infarction. No shift of the midline structures, mass effect, or extra-axial abnormalities are shown. Lungs and soft tissues are unremarkable. CTA Neck: A 3 vessel aortic arch is shown. Atherosclerotic plaque is present in the aortic arch and at the origin of the great vessels. The common carotid, external carotid, cervical segments of the internal carotid arteries, and the cervical segments of the retropharyngeal course of the internal carotid arteries noted. Vertebral arteries are patent without hemodynamically significant stenosis. The left vertebral artery is dominant. CTA Head: The anterior and posterior cerebral circulations are patent. origin of the bilateral posterior cerebral arteries noted. IMPRESSION: 1. No acute intracranial hemorrhage, evidence of acute territorial infarction, or other acute intracranial disease process. 2. No occlusion, hemodynamically significant stenosis, or dissection in the major cervical arteries. 3. No occlusion, hemodynamically significant stenosis, aneurysm, dissection, or arteriovenous malformation in the major intracranial arteries. Assessment of stenosis of the internal carotid arteries is based on NASCET criteria. ACT 112: Negative or not required by law. Electronically signed by: Librado Cabral M.D. 09/17/2022 1:49 PM Head CTA 09/17/22 12:38 CT angio neck with con, CT head/brain wo con, CT angio head w con CLINICAL HISTORY: speech issues, LLE weak TECHNIQUE: Contiguous axial CT images of the head were acquired from the base of the skull to the vertex without intravenous contrast administration. CT angiography of the head and neck was performed following intravenous administration of iodinated contrast. Coronal and sagittal MIPS were obtained from the axial data set and were submitted for review. Automated dose lowering techniques and/or adjustment according to patient size were utilized for this examination. All measurements were calculated based on NASCET criteria. CT DOSE: 1904.39 mGy.cm Comparison: None available at the time of this dictation. FINDINGS: CT head: There is no acute intracranial hemorrhage or evidence of acute territorial infarction. No shift of the midline structures, mass effect, or extra-axial abnormalities are shown. Lungs and soft tissues are unremarkable. CTA Neck: A 3 vessel aortic arch is shown. Atherosclerotic plaque is present in the aortic arch and at the origin of the great vessels. The common carotid, external carotid, cervical segments of the internal carotid arteries, and the cervical segments of the retropharyngeal course of the internal carotid arteries noted. Vertebral arteries are patent without hemodynamically significant stenosis. The left vertebral artery is dominant. CTA Head: The anterior and posterior cerebral circulations are patent. origin of the bilateral posterior cerebral arteries noted. IMPRESSION: 1. No acute intracranial hemorrhage, evidence of acute territorial infarction, or other acute intracranial disease process. 2. No occlusion, hemodynamically significant stenosis, or dissection in the major cervical arteries. 3. No occlusion, hemodynamically significant stenosis, aneurysm, dissection, or arteriovenous malformation in the major intracranial arteries. Assessment of stenosis of the internal carotid arteries is based on NASCET criteria. ACT 112: Negative or not required by law. Electronically signed by: Librado Cabral M.D. 09/17/2022 1:49 PM Neck CTA 09/17/22 12:38 CT angio neck with con, CT head/brain wo con, CT angio head w con CLINICAL HISTORY: speech issues, LLE weak TECHNIQUE: Contiguous axial CT images of the head were acquired from the base of the skull to the vertex without intravenous contrast administration. CT angiography of the head and neck was performed following intravenous administration of iodinated contrast. Coronal and sagittal MIPS were obtained from the axial data set and were submitted for review. Automated dose lowering techniques and/or adjustment according to patient size were utilized for this examination. All measurements were calculated based on NASCET criteria. CT DOSE: 1904.39 mGy.cm Comparison: None available at the time of this dictation. FINDINGS: CT head: There is no acute intracranial hemorrhage or evidence of acute territorial infarction. No shift of the midline structures, mass effect, or extra-axial abnormalities are shown. Lungs and soft tissues are unremarkable. CTA Neck: A 3 vessel aortic arch is shown. Atherosclerotic plaque is present in the aortic arch and at the origin of the great vessels. The common carotid, external carotid, cervical segments of the internal carotid arteries, and the cervical segments of the retropharyngeal course of the internal carotid arteries noted. Vertebral arteries are patent without hemodynamically significant stenosis. The left vertebral artery is dominant. CTA Head: The anterior and posterior cerebral circulations are patent. origin of the bilateral posterior cerebral arteries noted. IMPRESSION: 1. No acute intracranial hemorrhage, evidence of acute territorial infarction, or other acute intracranial disease process. 2. No occlusion, hemodynamically significant stenosis, or dissection in the major cervical arteries. 3. No occlusion, hemodynamically significant stenosis, aneurysm, dissection, or arteriovenous malformation in the major intracranial arteries. Assessment of stenosis of the internal carotid arteries is based on NASCET criteria. ACT 112: Negative or not required by law. Electronically signed by: Librado Cabral M.D. 09/17/2022 1:49 PM Medications Administered Medication List Discontinued Medications Ioversol (Optiray 320 125ml) 120 ml IV ONCE ONE Stop: 09/17/22 13:20 Last Admin: 09/17/22 13:19 Dose: 120 ml Documented By: ISABEL ECG Rate (beats per minute): 63 Rhythm: normal sinus Findings: + 1st degree AV block Additional Comments: qtc 425ms COVID-19 Results Results COVID-19 Adm Lab Results: RBC 4.01 M/uL (4.20-5.40) L 09/17/22 WBC 10.94 K/ul (4.8-10.8) H 09/17/22 Hgb 12.8 g/dl (12.0-16.0) 09/17/22 Hct 39.5 % (37.0-47.0) 09/17/22 Plt Count 361 K/uL (130-400) 09/17/22 Neutrophils (%) (Auto) 73.4 % 09/17/22 Lymphocytes (%) (Auto) 17.1 % 09/17/22 Monocytes # (Auto) 0.73 K/uL (0.11-0.59) H 09/17/22 Eosinophils # (Auto) 0.17 K/uL (0-0.50) 09/17/22 Immature Granulocyte % (Auto) 0.5 % 09/17/22 Neutrophils # (Auto) 8.04 K/uL (1.40-6.50) H 09/17/22 Lymphocytes # (Auto) 1.87 K/uL (1.2-3.4) 09/17/22 Monocytes # (Auto) 0.73 K/uL (0.11-0.59) H 09/17/22 Eosinophils # (Auto) 0.17 K/uL (0-0.50) 09/17/22 Basophils # (Auto) 0.08 K/uL (0-0.2) 09/17/22 Immature Granulocyte # (Auto) 0.05 K/uL (0.01-0.20) 3 Na 136 mmol/L (136-145) 09/17/22 K 4.1 mmol/L (3.5-5.1) 09/17/22 Cl 105 mmol/L (98-107) 09/17/22 CO2 24 mmol/L (21-32) 09/17/22 Anion Gap 7 (3-11) 09/17/22 BUN 33 mg/dl (6-23) H 09/17/22 Creatinine 1.24 mg/dl (0.6-1.2) H 09/17/22 BUN/Creatinine Ratio 26.6 (10-20) H 09/17/22 Glucose Level 74 mg/dl (70-99(Fasting)) 09/17/22 Ca 9.8 mg/dl (8.6-10.3) 09/17/22 Total Bilirubin 0.4 mg/dl (0.2-1.0) 09/17/22 AST/SGOT 14 U/L (13-39) 09/17/22 ALT/SGPT 11 U/L (7-52) 09/17/22 Alkaline Phosphatase 56 U/L (34-104) 09/17/22 Total Protein 7.2 gm/dl (6.0-8.3) 09/17/22 Albumin 4.0 gm/dl (3.4-5.0) 09/17/22 Globulin 3.2 gm/dl (2.5-4.0) 09/17/22 Albumin/Globulin Ratio 1.3 (0.9-2) 09/17/22 INR 1.8 (0.9-1.1) H 09/17/22 SARS-CoV-2, RNA, NAAT NEGATIVE (NEGATIVE) 09/17/22 Chest X-Ray 09/17/22 Code Status & VTE Plan Code Status FULL CODE Supervising Physician Co-Signing Physician Notes Ms. Yeung is an 82-year-old female with pmhx (per chart) of HTN, HLD, moderate persistent asthma, hypothyroidism, GERD, IBS, CKD stage III, renal artery aneurysm, gout, age-related osteoporosis, history of PE on warfarin and generalized anxiety disorder. She presents d/t worsening malaise that culminated in a near syncopal episode at her dr. office today (was there for INR check). Her notes she has some LLE weakness lately and has been dragging her left foot and shuffling gait. Pt seen and examined at bedside. She relayed the above hx. She also states she has been having difficulty with word finding lately. She frequently finds what she wants to say is at the tip of her tongue but she struggles to find the words. Eventually though she is able to express herself. She does not note any expressive or receptive aphasia. She has been intermittently lightheaded, particularly worse today which caused her to fall at the doctor's office. She has been feeling generally unwell for a few months, like something is off but she's not sure what. She has good days and bad days (where she has no energy). She has coughing episodes at baseline that she attributes to asthma, but recently has a severe cough persisting much longer than usual. She denies any associated sob, dyspnea, and CP. She has IBS which she believes is at baseline. She has an episode a few times a week to every few weeks consisting of severe abdominal cramping relieved after having 2 bowel movements which are soft but not diarrhea. She denies f/c/n/v, and dysuria. She has no other complaints. She is very afraid she could have Parkinson's disease. Her granddaughter is doing pharmaceutical research on Parkinson's dz and shares some of this with her grandparents. # LLE weakness/word finding difficulty and possible shuffling gait word finding difficulty could be related to stress, pt states she is always under a lot of stress, her has been battling with ca for [address] head/CTA head and neck neg f/u MRI for ? CVA f/u echo, monitor on tele neurology consulted, appreciate input f/u PT/OT/ST consults if neurologist finds exam consistent with PD then start trial of Sinemet # cough: no f/c/n/v, sob, or wheezing possibly cough variant asthma vs GERD vs Lisinopril adverse side effect trial prednisone already on ICS and LABA, and Montelukast Pulm OP follow up, updated PFTs as OP. IS already on PPI, consider adding H2 pal, GI f/u OP for possible EGD May benefit from trial off of WILLIAM-inhibitor # HTN: as above consider d/c lisinopril continue HCTZ, Spironolactone, and Metoprolol # HLP: continue statin therapy # ETTA: continue Paroxetine, lorazepam prn Physical Exam Gen: WD/WN, elderly, appears anxious Head: Normocephalic, Atraumatic Eyes: PERRL, conjunctivae normal, anicteric sclerae Nose: normal, nares patent Mouth: MMM Neck: trachea midline, supple Pulm: normal respiratory effort, CTA b/l no wheezing Cardiovascular: RRR, S1 S2, no murmur, no edema Abdomen: + BS, soft, NT, ND Musculoskeletal: normal bulk and tone. Neurologic: PERRL, EOMI, CN's II-XI intact, LUE/LLE weakness, +cogwheeling on left, slight tremor appreciated on R Psychiatric: A+Ox3, euthymic affect Skin: visible skin warm, dry, and without rash. Not fully undressed for exam. Rest per attested note above
[2022-09-17] MEDS ORDERED: WARFARIN SOD 1.25 MG TAB PO SCH (16:00)
[2022-09-17] MEDS ORDERED: PHARMACIST DISCHARGE MED REC CONSULT PRN (16:30)
[2022-09-17] MEDS ORDERED: ACETAMINOPHEN 325 MG TAB PO PRN (16:30)
[2022-09-17] MEDS ORDERED: ALUMINUM/MAGNESIUM SUSP 30 ML UDC PO PRN (16:30)
[2022-09-17] MEDS ORDERED: DICYCLOMINE HCL 10 MG CAP PO PRN (16:30)
[2022-09-17] MEDS ORDERED: POLYETHYLENE (MIRALAX) 17 GM PACK PO PRN (16:30)
[2022-09-17] MEDS ORDERED: ALBUTEROL HFA 8 GM INHALER INH PRN (16:30)
[2022-09-17] MEDS ORDERED: MAGNESIUM HYDROXIDE SUSP 30 ML UDC PO PRN (16:30)
[2022-09-17] MEDS ORDERED: LORazepam 1 MG TAB PO PRN (16:30)
[2022-09-17] MEDS ORDERED: ONDANSETRON INJ 2 MG/ML 2 ML VIAL IV PRN (16:30)
[2022-09-17 16:46] LABS: Appearance Urine Clear (Clear); Bacteria Urine Automated Negative (Negative); Bilirubin Urine Negative (Negative); Blood Urine Negative (Negative); Color Urine Yellow; Glucose Urine UA Negative (Negative); Ketones Urine Negative (Negative); Leukocyte Esterase Urine Trace (Negative); Nitrite Urine Negative (Negative); Protein Urine Negative (Negative); RBC Urine Automated 0-4 /hpf (0-4); Specific Gravity Urine 1.038 (1.000-1.030); Urobilinogen Urine Negative (Negative); pH Urine 5.5 (4.5-7.5)
[2022-09-17] MEDS: FLUTICASONE/VILANTEROL 200/25MCG 14 PUFFS/INHALER INH SCH (18:13)
[2022-09-17] MEDS: predniSONE 20 MG TAB PO SCH (18:13)
--- NOTE | 2022-09-17 18:59 | Magnetic Resonance Report ---
MR brain wo con CLINICAL HISTORY: tia TECHNIQUE: Multiplanar and multisequence MR images of the brain were obtained without intravenous con trast. Comparison: Comparison is made to CTA head and neck 09/17/2022 FINDINGS: No abnormal restricted diffusion is identified. Foci of T2 and FLAIR hyperintensity are noted in the paraventricular areas consistent with chronic small vessel ischemic disease. Ex vacuo ventriculomegal y and sulcal enlargement is noted compatible with diffuse volume loss. No mass is seen. There is no m ass effect or midline shift. There is no evidence of acute intraparenchymal hemorrhage. No extra axia l fluid collections are seen. The corpus callosum, pituitary gland, and cerebellar tonsils appear jami ssly unremarkable. Flow voids of the major intracranial arterial vessels are identified. The imaged portions of the para nasal sinuses, mastoid air cells, and orbits are unremarkable. IMPRESSION: No acute abnormalities. ACT 112: Negative or not required by law. Electronically signed by: Librado Cabral M.D. 09/17/2022 6:58 PM
[2022-09-17] MEDS ORDERED: MONTELUKAST SODIUM 10 MG TABLET PO SCH (21:00)
[2022-09-17] MEDS ORDERED: PRAVASTATIN SOD 10 MG TAB PO SCH (21:00)
[2022-09-17] MEDS ORDERED: CETIRIZINE HCL 10 MG TABLET PO SCH (21:00)
[2022-09-18] MEDS ORDERED: LEVOTHYROXINE SODIUM 75 MCG TABLET PO SCH (06:30)
[2022-09-18 07:37] LABS: Hemoglobin 12.1 g/dl (12.0-16.0); Mean Corpuscular Hemoglobin 32.5 pg (25.0-34.0); Mean Corpuscular Hgb Conc 33.6 g/dL (32.0-36.0); Mean Corpuscular Volume 96.8 fL (80.0-100.0); Mean Platelet Volume 10.7 fL (9.4-12.4); Platelet Count 343 K/uL (130-400); Potassium 5.1 mmol/L (3.5-5.1); RDW Standard Deviation 49.9 fL (36.4-46.3); Red Blood Count 3.72 M/uL (4.20-5.40); White Blood Count 9.46 K/ul (4.8-10.8)
[2022-09-18 07:38] LABS: BUN Creatinine Ratio 26.2 (10-20); Calcium 9.2 mg/dl (8.6-10.3); Chol HDL Ratio 3.4 (0-5); Creatinine Clr Calc Pharmacy 32.9 ml/min; Est GFR (African American) 38.1 ml/min; Est GFR (Non-African American) 32.8 ml/min
[2022-09-18 07:41] LABS: INR 1.8 (0.9-1.1); Prothrombin Time 18.6 Seconds (9.0-12.0)
[2022-09-18] MEDS: predniSONE 20 MG TAB PO SCH (08:06)
[2022-09-18] MEDS: FLUTICASONE/VILANTEROL 200/25MCG 14 PUFFS/INHALER INH SCH (08:08)
[2022-09-18 08:14] LABS: Basophils # (auto) 0.01 K/uL (0-0.2); Basophils % (auto) 0.1 %; Immature Granulocytes # (auto) 0.03 K/uL (0.01-0.20); Immature Granulocytes % (auto) 0.3 %; Lymphocytes # (auto) 0.76 K/uL (1.2-3.4); Monocytes # (auto) 0.06 K/uL (0.11-0.59); Monocytes % (auto) 0.6 %
[2022-09-18 08:35] LABS: Estimated Average Glucose 117 mg/dl; Hemoglobin A1C 5.7 % (4.5-5.6)
[2022-09-18] MEDS ORDERED: SPIRONOLACTONE 25 MG TAB PO SCH (09:00)
[2022-09-18] MEDS ORDERED: PANTOprazole 40 MG TAB PO SCH (09:00)
[2022-09-18] MEDS ORDERED: allopurinoL 100 MG TAB PO SCH (09:00)
[2022-09-18] MEDS ORDERED: PARoxetine HCL 10 MG TAB PO SCH (09:00)
[2022-09-18] MEDS ORDERED: METOPROLOL SUCC 25MG EXT REL TAB PO SCH (09:00)
[2022-09-18] MEDS ORDERED: CHOLECALCIFEROL 1,000 UNITS 25 MCG TAB PO SCH (09:00)
[2022-09-18] MEDS ORDERED: LISINOPRIL/HCTZ 20/12.5MG 1 TAB TAB PO SCH (09:00)
--- NOTE | 2022-09-18 10:31 | Neurology Consultation ---
Date of Consultation September 18, 2022 Assessment & Plan (1) Movement disorder: Constellation of symptoms including mild anomia/dysfluency, LLE dyskinesia, mild bradykinesia throughout could indicate a movement disorder. This is not classic for parkinsons disease but perhaps early CBGD with LLE involvement. I would not recommend starting any medications at this time as symptoms are mild. She should be seen in neuro follow-up and monitored over time. -- Neurology follow-up 3 months -- May benefit from neuropsych cognitive eval for anomia Telehealth Consultation Telehealth Information Telehealth Information: I performed this visit using a real-time telehealth connection between my location and the patients location ([facility]). After connecting through interactive tele-video, patient was identified by name and date of and/or wristband check.Patient (or authorized healthcare representative personal service) was informed that this was a telemedicine visit and it was being conducted confidentially over secure lines. My office door was closed and no one else was present in the room with me.Patient (or authorized healthcare representative personal service) provided consent to proceed with the visit, expressed an understanding of privacy and security of the telemedicine visit, and gave permission to have a hospital representative personal service in the room in order to assist with the visit and to conduct portions of the visit, as needed. I informed the patient (or authorized healthcare representative personal service) that I reviewed their record and presented the opportunity for them to ask any questions regarding the visit today. The patient agreed to participate. History of Present Illness Reason for Consultation: Concern for parkinsons Requesting Physician: Dr. Guevara Attending Physician: Alcides Guevara MD History of Present Illness Horacio Yeung is an 82 yo F presenting with gait instability secondary to subjective left leg weakness. She reports that her gait has worsened over the past few months and she needs to focus more on putting her feet down correctly when she walks. She has not fallen recently but overall was concerned about this change. She has also noticed that her writing has gotten smaller and her movements are overall slowing down. She also noticed some difficulty with word finding and needs to think of word associations to say the right word. She is primarily concerned she has parkinsons disease. Allergies Allergy/AdvReac Type Severity Reaction Status Date / Time Sulfa (Sulfonamide Allergy Intermediate HIVES Verified 09/17/22 14:52 Antibiotics) Home Medications Medication Instructions Recorded Confirmed Type albuterol sulfate 90 mcg/actuation 2 puff inhalation Q6H PRN 02/20/18 09/17/22 History aerosol inhaler Shortness Of Breath Or Wheezing cholecalciferol (vitamin D3) 25 1,000 unit PO DAILY 02/20/18 09/17/22 History mcg (1,000 unit) tablet (Vitamin D3) dicyclomine 10 mg capsule 10 mg PO QID PRN Cramps 02/20/18 09/17/22 History ipratropium 0.5 mg-albuterol 3 mg 1 dose inhalation Q6 PRN Shortness 02/20/18 09/17/22 History (2.5 mg base)/3 mL nebulization Of Breath Or Wheezing soln levocetirizine 5 mg tablet (Xyzal) 5 mg PO QPM 02/20/18 09/17/22 History metoprolol succinate 25 mg 12.5 mg PO DAILY 02/20/18 09/17/22 History tablet,extended release 24 hr (Toprol XL) paroxetine HCl 30 mg tablet (Paxil) 30 mg PO QAM 02/20/18 09/17/22 History pravastatin 10 mg tablet 10 mg PO QPM 02/20/18 09/17/22 History spironolactone 25 mg tablet 25 mg PO DAILY 02/20/18 09/17/22 History (Aldactone) lorazepam 1 mg tablet 1 mg PO TID PRN Anxiety 02/24/18 09/17/22 History lisinopril 20 2 tab PO DAILY 12/29/18 09/17/22 History mg-hydrochlorothiazide 12.5 mg tablet montelukast 10 mg tablet 10 mg PO PM 12/29/18 09/17/22 History (Singulair) allopurinol 100 mg tablet 200 mg PO DAILY 04/14/22 09/17/22 History levothyroxine 75 mcg tablet 75 mcg PO DAILY 04/14/22 09/17/22 History warfarin 2.5 mg tablet See Rx Instructions .Route .COMPLEX 04/14/22 09/17/22 History mometasone-formoterol HFA 200 2 inh inhalation BID 09/17/22 09/17/22 History mcg-5 mcg/actuation aerosol inhaler (Dulera) omeprazole 40 mg capsule,delayed 40 mg PO QAM 09/17/22 09/17/22 History release Patient History Medical History Aneurysm of right renal artery Chronic gout CKD (chronic kidney disease), stage III Dyslipidemia History of pulmonary embolism Hypertension Hypothyroidism IBS (irritable bowel syndrome) Moderate persistent asthma Surgical History History of cholecystectomy Family History Father Hypertension Mother Stroke Other Family history non-contributory Social History Smoking Status: Never smoker Second Hand Exposure: Yes; Hx Alcohol Use: No Hx Substance Use: No Preferred Language: Indonesian Communication Ability: Effective Chocolate Molder Required: No Beliefs That Will Affect Care: None marital status: Current Living Situation: Spouse current occupational status: retired Feels Safe at Home: Yes Assistive Devices: Cane, Hearing Aid - Bilateral and Walker Review of Systems +Left leg weakness Physical Exam Neurological Examination: Mental Status: Awake and alert. Oriented to person, place, and time. Fluent. Comprehension intact. Affect appropriate. Cranial Nerves: II: Reads NIHSS cards, pupils 3/3 to 2/2 III/IV/: Versions intact without nystagmus, no gaze preference. No upward ga ze limitation VII: Facial expression symmetric without hypomimia VIII: Hearing intact to voice XII: Tongue midline Motor: Strength was symmetric and antigravity throughout. Mild bradykinesia. Pr onator drift was absent. There were no abnormal movements. I did not notice a tremor. Toe tapping was dyskinetic, specifically on the left. Coordination: No ataxia in the upper extremities. PRISCILA intact. Reflexes: Unable to assess over telemedicine Gait: Unable to stand with arms crossed, en-bloc turning, mild shuffling gait. Results & Data Vital Signs (Past 12 Hours) Vital Signs Temp Pulse Pulse Resp BP Pulse Ox O2 Del Method 09/18/22 07:58 Room Air 09/18/22 07:30 36.5 C 69 16 128/69 95 Room Air 09/18/22 07:00 68 09/18/22 02:59 36.7 C 68 18 96/65 L 92 Room Air 09/17/22 23:35 36.4 C L 68 18 102/61 92 Room Air 09/17/22 23:30 69 Laboratory Results Abnormal lab results 09/17/22 09/17/22 09/17/22 Range/Units 12:03 12:03 12:03 WBC 10.94 H (4.8-10.8) K/ul RBC 4.01 L (4.20-5.40) M/uL Hct (37.0-47.0) % RDW Std Deviation 52.1 H (36.4-46.3) fL Neut # (Auto) 8.04 H (1.40-6.50) K/uL Lymph # (Auto) (1.2-3.4) K/uL [place] # (Auto) 0.73 H (0.11-0.59) K/uL PT 19.1 H (9.0-12.0) Seconds INR 1.8 H (0.9-1.1) BUN 33 H (6-23) mg/dl Creatinine 1.24 H (0.6-1.2) mg/dl BUN/Creatinine Ratio 26.6 H (10-20) Glucose (70-99(Fasting)) mg/dl Hemoglobin A1c (4.5-5.6) % Ur Specific [place] (1.000-1.030) Ur Leukocyte Esterase (Negative) U Epithel Cells (Auto) (0-5) /lpf 09/17/22 09/18/22 09/18/22 Range/Units 15:21 06:21 06:21 WBC (4.8-10.8) K/ul RBC 3.72 L (4.20-5.40) M/uL Hct 36.0 L (37.0-47.0) % RDW Std Deviation 49.9 H (36.4-46.3) fL Neut # (Auto) 8.60 H (1.40-6.50) K/uL Lymph # (Auto) 0.76 L (1.2-3.4) K/uL [place] # (Auto) 0.06 L (0.11-0.59) K/uL PT 18.6 H (9.0-12.0) Seconds INR 1.8 H (0.9-1.1) BUN (6-23) mg/dl Creatinine (0.6-1.2) mg/dl BUN/Creatinine Ratio (10-20) Glucose (70-99(Fasting)) mg/dl Hemoglobin A1c (4.5-5.6) % Ur Specific [place] 1.038 H (1.000-1.030) Ur Leukocyte Esterase Trace H (Negative) U Epithel Cells (Auto) 5-10 H (0-5) /lpf 09/18/22 09/18/22 Range/Units 06:21 06:21 WBC (4.8-10.8) K/ul RBC (4.20-5.40) M/uL Hct (37.0-47.0) % RDW Std Deviation (36.4-46.3) fL Neut # (Auto) (1.40-6.50) K/uL Lymph # (Auto) (1.2-3.4) K/uL [place] # (Auto) (0.11-0.59) K/uL PT (9.0-12.0) Seconds INR (0.9-1.1) BUN 39 H (6-23) mg/dl Creatinine 1.49 H (0.6-1.2) mg/dl BUN/Creatinine Ratio 26.2 H (10-20) Glucose 139 H (70-99(Fasting)) mg/dl Hemoglobin A1c 5.7 H (4.5-5.6) % Ur Specific [place] (1.000-1.030) Ur Leukocyte Esterase (Negative) U Epithel Cells (Auto) (0-5) /lpf Diagnostic Findings MRI brain - Unremarkable
--- NOTE | 2022-09-18 12:58 | Hospitalist Progress Note ---
Date of Service September 18, 2022 Assessment & Plan (1) Stroke-like symptoms: (2) Cough: (3) HTN (hypertension): (4) CKD (chronic kidney disease), stage III: (5) History of pulmonary embolism: Plan This is an 82-year-old female who has significant past medical history of HTN, HLD, hypothyroidism, gout, moderate persistent asthma, renal artery aneurysm, IBS, GERD, CKD stage III, age-related osteoporosis, history of PE on warfarin and generalized anxiety disorder who presented to ED secondary to weakness, dragging of left foot and violent cough for several weeks. Stroke like sx - pt reported L sided weakness, L foot drag, numbness to L foot and occasional aphasia/memory loss Remains stable in medical telemetry unit and the symptoms resolved Relevant investigations including MRI of the brain, CT of the brain, CTA, echocardiogram were unremarkable Appreciate neurology input and recommendation-likely has mild movement disorders not for any treatment at this time and will be evaluated by neurologist as an outpatient in about 3 months Echocardiogram: Mild concentric LVH, EF 65 to 70%, aortic valve is trileaflet, aortic valve sclerosis moderate without significant stenosis, mild aortic regurgitation, trace tricuspid regurgitation, Doppler findings do not suggest pulmonary hypertension and grade 1 diastolic dysfunction PT/OT/ST-evaluated and recommended home PT Medically stable to be discharged this afternoon Cough Asthma - moderate persistent No exacerbation pt w/o wheezing but continued cough will trial prednisone taper-can continue with the prednisone taper Is already on PPI Pt has been on dulera for some time, consider switched to Breo 200mcg at d/c Will need pulm f/u as OP, had Spirometry as OP which was normal Continue antihistamines Hx of pE continue warfarin, INR 1.8 here, but 2.0 at [facility] today continue home regimen Will need regular follow-up with the coagulation clinic CKD 3 cr 1.2 avoid nephrotoxic agents HTN continue lisinopril/hctz, metoprolol, bp stable Gout continue allopurinol DVT ppx: warfarin FULL CODE PCP: Irene Dispo: admit to tele, likely d/c tomorrow after stroke w/u Likely discharge this afternoon Admission and Anticipated Discharge Date Admission Date: September 17, 2022 Subjective 09/18/2022 Patient was seen and examined in medical telemetry unit She was admitted with strokelike symptoms complaining of left leg weakness and generally unwell She has been feeling much better since admission and she was evaluated by neurologist She denies any significant symptoms during examination Review of Systems Review of Systems: All systems reviewed and are unremarkable except as noted below Physical Exam Physical Exam: Lying in bed comfortably Constitutional: well developed, well nourished and + obese; not ill appearing Eyes: PERRL, conjunctivae normal, anicteric sclerae ENMT: external ear and nose normal, oropharynx normal Neck: trachea midline, no thyromegaly Respiratory: no respiratory distress Auscultation: lungs clear to auscultation bilaterally Cardiovascular: Rate/Rhythm: regular rate and regular rhythm; not tachycardic Heart Sounds: normal S1 and normal S2; no murmur Extremities: no edema Gastrointestinal (Abdomen): Inspection/Auscultation: abdomen normal to inspection and normal bowel sounds Percussion/Palpation: abdomen soft; abdomen nontender Musculoskeletal: No acute arthritis involving any of the joint Neurologic: normal touch/pain/proprioception and moves all extremities; no focal motor deficits Lymphatic: no cervical or axillary lymphadenopathy Results & Data Results & Data Vital Signs (Past 12 Hours) Vital Signs Temp Pulse Pulse Resp BP Pulse Ox O2 Del Method 09/18/22 11:27 36.5 C 69 16 128/69 95 09/18/22 11:17 36.4 C L 82 16 119/72 92 Room Air 09/18/22 07:58 Room Air 09/18/22 07:30 36.5 C 69 16 128/69 95 Room Air 09/18/22 07:00 68 09/18/22 02:59 36.7 C 68 18 96/65 L 92 Room Air Laboratory Results Short CBC 09/17/22 09/18/22 Range/Units 12:03 06:21 WBC 10.94 H 9.46 (4.8-10.8) K/ul Hgb 12.8 12.1 (12.0-16.0) g/dl Hct 39.5 36.0 L (37.0-47.0) % Plt Count 361 343 (130-400) K/uL [facility] 09/17/22 09/18/22 12:03 06:21 Sodium 136 137 Potassium 4.1 5.1 D Chloride 105 106 Carbon Dioxide 24 21 BUN 33 H 39 H Creatinine 1.24 H 1.49 H Glucose 74 139 H Calcium 9.8 9.2 Liver Function 09/17/22 Range/Units 12:03 Total Bilirubin 0.4 (0.2-1.0) mg/dl AST 14 (13-39) U/L ALT 11 (7-52) U/L Alkaline Phosphatase 56 (34-104) U/L Albumin 4.0 (3.4-5.0) gm/dl Urine 09/17/22 Range/Units 15:21 Urine Color Yellow Urine Appearance Clear (Clear) Urine pH 5.5 (4.5-7.5) Ur Specific [place] 1.038 H (1.000-1.030) Urine Protein Negative (Negative) Urine Glucose (UA) Negative (Negative) Medications Administered Current Inpatient Medications Acetaminophen (Acetaminophen 325 Mg Tab) 650 mg PO Q4H PRN PRN Reason: Pain or Fever Stop: 10/17/22 16:29 Al Hydrox/Mg Hydrox/Simethicone (Aluminum/Magnesium Susp 30 Ml Udc) 15 ml PO Q4H PRN PRN Reason: Dyspepsia Stop: 10/17/22 16:29 Albuterol (Albuterol Hfa 8 Gm Inhaler) 2 puffs INH Q6H PRN; Protocol PRN Reason: Shortness Of Breath Or Wheezin Stop: 10/17/22 16:29 Allopurinol (Allopurinol 100 Mg Tab) 200 mg PO DAILY DEANNE Stop: 10/18/22 08:59 Last Admin: 09/18/22 08:07 Dose: 200 mg Cetirizine HCl (Cetirizine Hcl 10 Mg Tablet) 10 mg PO QPM DEANNE Stop: 10/17/22 20:59 Last Admin: 09/17/22 20:22 Dose: 10 mg Dicyclomine HCl (Dicyclomine Hcl 10 Mg Cap) 10 mg PO QID PRN PRN Reason: Cramps Stop: 10/17/22 16:29 Fluticasone/Vilanterol (Fluticasone/Vilanterol 200/25mcg 14 Puffs/Inhaler) 1 puffs INH DAILY DEANNE Stop: 10/17/22 16:59 Last Admin: 09/18/22 08:08 Dose: 1 puffs Lisinopril/HCTZ (Lisinopril/Hctz 20/12.5mg 1 Tab Tab) 2 tab PO DAILY DEANNE Stop: 10/18/22 08:59 Last Admin: 09/18/22 08:05 Dose: 2 tab Levothyroxine Sodium (Levothyroxine Sodium 75 Mcg Tablet) 75 mcg PO DAILYBB [facility] Stop: 10/18/22 06:29 Last Admin: 09/18/22 05:39 Dose: 75 mcg Lorazepam (Lorazepam 1 Mg Tab) 1 mg PO TID PRN PRN Reason: Anxiety Stop: 10/17/22 16:29 Magnesium Hydroxide (Magnesium Hydroxide Susp 30 Ml Udc) 30 ml PO Q12H PRN PRN Reason: Constipation Stop: 10/17/22 16:29 Metoprolol Succinate (Metoprolol Succ 25mg Ext Rel Tab) 12.5 mg PO DAILY DEANNE Stop: 10/18/22 08:59 Last Admin: 09/18/22 08:07 Dose: 12.5 mg Miscellaneous Information (Pharmacist Discharge Med Rec Consult) 1 each N/A UD PRN PRN Reason: Consult Stop: 10/17/22 16:29 Montelukast Sodium (Montelukast Sodium 10 Mg Tablet) 10 mg PO PM [facility] Stop: 10/17/22 20:59 Last Admin: 09/17/22 20:22 Dose: 10 mg Ondansetron HCl (Ondansetron Inj 2 Mg/Ml 2 Ml Vial) 4 mg IV Q6H PRN PRN Reason: Nausea Stop: 10/17/22 16:29 Pantoprazole Sodium (Pantoprazole 40 Mg Tab) 40 mg PO QAM [facility]; Protocol Stop: 10/18/22 08:59 Last Admin: 09/18/22 08:06 Dose: 40 mg Paroxetine HCl (Paroxetine Hcl 10 Mg Tab) 30 mg PO QAM [facility] Stop: 10/18/22 08:59 Last Admin: 09/18/22 08:06 Dose: 30 mg Polyethylene Glycol (Polyethylene (Miralax) 17 Gm Pack) 17 gm PO DAILY PRN PRN Reason: Constipation Stop: 10/17/22 16:29 Pravastatin Sodium (Pravastatin Sod 10 Mg Tab) 10 mg PO QPM [facility] Stop: 10/17/22 20:59 Last Admin: 09/17/22 20:22 Dose: 10 mg Prednisone (Prednisone 20 Mg Tab) 40 mg PO DAILY [facility]; Taper Stop: 09/29/22 16:29 Last Admin: 09/18/22 08:06 Dose: 40 mg Spironolactone (Spironolactone 25 Mg Tab) 25 mg PO DAILY [facility] Stop: 10/18/22 08:59 Last Admin: 09/18/22 08:07 Dose: 25 mg Vitamin D (Cholecalciferol 1,000 Units 25 Mcg Tab) 1,000 units PO DAILY [facility] Stop: 10/18/22 08:59 Last Admin: 09/18/22 08:06 Dose: 1,000 units Warfarin Sodium (Warfarin Sod 2.5 Mg Tab) 2.5 mg PO [id number] [facility] Stop: 10/18/22 15:59 Warfarin Sodium (Warfarin Sod 1.25 Mg Tab) 1.25 mg PO [email or web address] [facility] Stop: 10/17/22 15:59 Last Admin: 09/17/22 18:13 Dose: 1.25 mg
[2022-09-18] MEDS ORDERED: STROKE PATIENT DISCHARGE STA (13:59)
[2022-09-18] MEDS ORDERED: WARFARIN SOD 2.5 MG TAB PO SCH (16:00)
--- NOTE | 2022-09-18 16:46 | Discharge Summary ---
Date of Service September 18, 2022 Admission HPI Per Admitting Provider This is an 82-year-old female who has significant past medical history of HTN, HLD, hypothyroidism, gout, moderate persistent asthma, renal artery aneurysm, IBS, GERD, CKD stage III, age-related osteoporosis, history of PE on warfarin and generalized anxiety disorder who presented to ED secondary to weakness, dragging of left foot and violent cough for several weeks. Patient's is at bedside who is a pharmacist. Patient initially presents due to violent cough that has been ongoing for the past 1 to 2 months and ends up resulting in vomiting. She recently had EGD and was thought may be secondary to GERD and placed on PPI. Her symptoms have not improved since this. She also has moderate asthma for which she is on Dulera twice daily 4. She admits to taking her albuterol inhaler 7-8 times a day. She complains of dyspnea on exertion but denies any shortness breath at rest. She also complains of associated, "fogginess of her brain," stating that a lot of times she knows what she wants to say and has a hard time getting it out, shuffling gait, dragging of her left foot, numbness to her left foot and overall just feeling, "off." also reports tremors. She denies any recent illness, rash or tick bite. She is not outdoors very much. She denies fever, chills, sweats, lightheadedness, presyncope, chest pain, hemoptysis, nausea, vomiting, abdominal pain or change in bowel or urinary habits. She does complain of feeling, "off balance and leaning to her left." She states occasionally she does run into things. She denies any falls or change in vision. Currently complains of frontal headache. Admission Exam Per Admitting Provider Physical Exam: Constitutional: WD/WN, elderly, F, appears anxious, vitals as above, NAD, sitting up in bed, pleasant, conversing easily Head: Normocephalic, Atraumatic Eyes: PERRL, conjunctivae normal, anicteric sclerae ENMT: external ear and nose normal, oropharynx normal Neck: trachea midline, no thyromegaly normal visual inspection Respiratory: normal respiratory effort, lungs clear to auscultation, no wheeze, rales, rhonchi. Normal insp/exp effort, no accessory muscle use Cardiovascular: RRR, no murmur, no edema Vessels: no JVD or carotid bruit Chest: normal inspection of chest Abdomen: normal bowel sounds, soft, nontender, no hepatosplenomegaly Musculoskeletal: no cyanosis or clubbing, extremities motor strength 5/5 on R 4/5 on Left, Skin: no rashes, warm and dry normal turgor Neurologic: PERRL, EOMI, accommodation nl, no face palsy, no dysarthria CN's II-XI intact bilaterally and moves all extremities, point to point intact, heel to cho intact, LUE/LLE weakness appreciated along with difficulty with fine motor movements of LUE. Negative pronator drift, +cogwheeling on left, slight tremor apprecatied on R, masked facies Psychiatric: A+Ox3, euthymic affect Lymphatic: no cervical or axillary lymphadenopathy : deferred Principal Diagnosis Strokelike symptoms, no stroke identified, controlled asthma, history of pulmonary embolism, hypertension Discharge Exam Lying in bed comfortably Constitutional well developed, well nourished and + obese; not ill appearing Eyes PERRL, conjunctivae normal, anicteric sclerae ENMT external ear and nose normal, oropharynx normal Neck trachea midline, no thyromegaly Respiratory no respiratory distress Auscultation: lungs clear to auscultation bilaterally Cardiovascular Rate/Rhythm: regular rate and regular rhythm; not tachycardic Heart Sounds: normal S1 and normal S2; no murmur Extremities: no edema Gastrointestinal (Abdomen) Inspection/Auscultation: abdomen normal to inspection and normal bowel sounds Percussion/Palpation: abdomen soft; abdomen nontender Neurologic normal touch/pain/proprioception and moves all extremities; no focal motor deficits Lymphatic no cervical or axillary lymphadenopathy Discharge Data Allergies Allergy/AdvReac Type Severity Reaction Status Date / Time Sulfa (Sulfonamide Allergy Intermediate HIVES Verified 09/17/22 14:52 Antibiotics) Consultations 09/17/22 14:23 ED Decision to Admit Stat 09/17/22 16:30 Consult Neurology Routine Ordered Studies 09/17/22 12:38 CT angio head w con Stat CT angio neck with con Stat CT head/brain wo con Stat 09/17/22 16:00 MR brain wo con Routine Hospital Course (1) Stroke-like symptoms: (2) Cough: (3) HTN (hypertension): (4) CKD (chronic kidney disease), stage III: (5) History of pulmonary embolism: Plan This is an 82-year-old female who has significant past medical history of HTN, HLD, hypothyroidism, gout, moderate persistent asthma, renal artery aneurysm, IBS, GERD, CKD stage III, age-related osteoporosis, history of PE on warfarin and generalized anxiety disorder who presented to ED secondary to weakness, dragging of left foot and violent cough for several weeks. Stroke like sx - pt reported L sided weakness, L foot drag, numbness to L foot and occasional aphasia/memory loss Remains stable in medical telemetry unit and the symptoms resolved Relevant investigations including MRI of the brain, CT of the brain, CTA, echocardiogram were unremarkable Appreciate neurology input and recommendation-likely has mild movement disorders not for any treatment at this time and will be evaluated by neurologist as an outpatient in about 3 months Echocardiogram: Mild concentric LVH, EF 65 to 70%, aortic valve is trileaflet, aortic valve sclerosis moderate without significant stenosis, mild aortic regurgitation, trace tricuspid regurgitation, Doppler findings do not suggest pulmonary hypertension and grade 1 diastolic dysfunction PT/OT/ST-evaluated and recommended home PT Medically stable to be discharged this afternoon Cough Asthma - moderate persistent No exacerbation pt w/o wheezing but continued cough will trial prednisone taper-can continue with the prednisone taper Is already on PPI Pt has been on dulera for some time, consider switched to Breo 200mcg at d/c Will need pulm f/u as OP, had Spirometry as OP which was normal Continue antihistamines Hx of pE continue warfarin, INR 1.8 here, but 2.0 at [facility] today continue home regimen Will need regular follow-up with the coagulation clinic CKD 3 cr 1.2 avoid nephrotoxic agents HTN continue lisinopril/hctz, metoprolol, bp stable Gout continue allopurinol DVT ppx: warfarin FULL CODE PCP: Irene Dispo: admit to tele, likely d/c tomorrow after stroke w/u Likely discharge this afternoon Total Time Total Time Spent Total Time Spent (In Minutes): 35 minutes Discharge Plan Discharge Items Patient Disposition: Home - Home Health Services Reason For Visit: TIA SX Discharge Diagnosis: Strokelike symptoms, no stroke identified, controlled asthma, history of pulmonary embolism, hypertension Condition on Discharge: Good Activity: Resume your previous activity Non-emergency contact: Primary Care Provider Call non-emergency contact if: you have any medication questions and your symptoms worsen Follow-up/Referrals: Phil Maldonado MD [Primary Care Provider] - (Date & Time 09/25/2022 11:00 AM Provider Phil Maldonado MD Department General Internal Medicine [facility] ) Matilde Hurtado PA-C [Physician [employer] Engineer] - (Date & Time 12/16/2022 11:20 AM Provider Matilde Hurtado PA-C Department Neurology [facility] ) Diet: Heart Healthy Addtl Attending Provider Instructions: Please take precautions to avoid falls Continue with the physical therapy as an outpatient Please keep appointments with your healthcare providers Pending Studies at Discharge: No Stand-Alone Forms: My [employer], Smoking Cessation, Medications to Prevent Stroke Medications and DC Order Prescriptions: New prednisone 10 mg tablet 10 mg PO DIRECTED Qty: 26 0RF Rx Instructions: see taper instructions 4 p.o. daily for 2 days, 3 p.o. daily for 3 days, 2 p.o. daily for 3 days and then 1 p.o. daily for 3 days Continued ipratropium-albuterol 0.5 mg-3 mg(2.5 mg base)/3 mL Solution For Nebulization 1 dose INHALATION Q6 PRN (Reason: Shortness Of Breath Or Wheezing) spironolactone [Aldactone] 25 mg tablet 25 mg PO DAILY pravastatin 10 mg tablet 10 mg PO QPM paroxetine HCl [Paxil] 30 mg tablet 30 mg PO QAM albuterol sulfate 90 mcg/actuation Hfa Aerosol Inhaler 2 puff INHALATION Q6H PRN (Reason: Shortness Of Breath Or Wheezing) cholecalciferol (vitamin D3) [Vitamin D3] 1,000 unit Tablet 1,000 unit PO DAILY levocetirizine [Xyzal] 5 mg tablet 5 mg PO QPM metoprolol succinate [Toprol XL] 25 mg Tablet Extended Release 24 Hr 12.5 mg PO DAILY dicyclomine 10 mg Capsule 10 mg PO QID PRN (Reason: Cramps) lorazepam 1 mg tablet 1 mg PO TID PRN (Reason: Anxiety) lisinopril-hydrochlorothiazide 20-12.5 mg Tablet 2 tab PO DAILY montelukast [Singulair] 10 mg Tablet 10 mg PO PM omeprazole 40 mg capsule,delayed release(DR/EC) 40 mg PO QAM Dulera 200-5 mcg/actuation HFA aerosol inhaler 2 inh INHALATION BID warfarin 2.5 mg tablet See Rx Instructions .ROUTE .COMPLEX Rx Instructions: TAKES QPM. TAKES 2.5 MG ON SUN, TU, WED, & FRI. THEN 1.25 MG ON MON, THURS, & SAT. allopurinol 100 mg tablet 200 mg PO DAILY levothyroxine 75 mcg tablet 75 mcg PO DAILY Discharge Orders: Discharge Order (Routine); Ordered 09/18/22 Ordered By: Alcides Guevara Admission Data Admit Date/Time: 09/17/22 15:14 Attending Provider: Alcides Guevara Admit Provider: Herminia Esquivel Primary Care Provider: Phil Maldonado Other Providers: Herminia Esquivel ; Brian Reed ; [facility] Other Interventions: Discharge Summary Assessment (RN) Last Done: 09/18/22 11:27
== END 2022-09-18 14:55 | disposition home health service (06) | DRG 57 ==
LOC: ED 11:56 → 2N 15:14 → SUATTDRO 15:14 → 2N 16:58

== ENCOUNTER 2024-01-02 15:26 | Observation (INO) ==
--- OUTSIDE RECORDS SUMMARY | 2024-01-02 15:33 | External Medical Summary | Summary of Care ---
Author Name Unknown Organization [facility] Address [address] [place] [address] Phone [phone] Care Team Providers Care Patch Worker Name Role Phone Phil Maldonado MD Primary Care Provider + Reason for Visit * Reason Onset Date Comments Home Monitoring Alarm 12/29/2023 Encounter Details Date Type Department Care Team (Late st Contact Info) Description 12/29/2023 Home Monitoring Care Coordination [address], [place] [id number] Lucie Cade, KELLE HTN, goal below 130/80*; Essential hypertension with goal blood pressure less than 140/90 Allergies Active Allergy Reactions Criticality Noted Date Comments Azithromycin Anaphylaxis High 08/11/2023 Sulfa Antibiotics Hives 10/29/1998 documented as of this encounter (statuses as of 12/29/2023) Medications Medication Sig Dispensed Refills Start Date End Date Status COMPRESSOR/NEBULIZER MISCIndications:Bact erial pneumonia,Asthma, mild persistent use for DuoNeb administration 1 Each 0 5 Active Spacer/Aero-Holding Chambers DEVIIndications:Asth ma, mild persistent Use with inhalers as instructed. 1 Device 2 7 Active Prolia 60 MG/ML Subcutaneous Solution Prefilled Syringe (denosumab)Indicatio ns:Osteoporosis Inject 60 mg under the skin every 6 months. 1 Each 0 Active Acetaminophen 500 MG Oral Tablet (Tylenol)Indications :Neck pain,Chronic right shoulder pain Take 2 Tablets by mouth every 12 hours as needed for Pain, Mild. 100 Tab 1 Active Dicyclomine HCl 10 MG Oral Capsule (Bentyl)Indications: Irritable bowel syndrome with diarrhea TAKE 1 CAPSULE BY MOUTH 4 TIMES DAILY NEEDED FOR ABDOMINAL PAIN/CRAMPING. 120 Capsule 11 2 Active Additional Information Patient taking differently:, TAKE 1 CAPSULE BY MOUTH 4 TIMES DAILY NEEDED FOR ABDOMINAL PAIN/CRAMPING.,Indications: Abdominal Pain, Reported on 05/26/2023 Polyethylene Glycol 3350 17 GM/SCOOP Oral PowderIndications:Co nstipation Prophylaxis Take 17 g by mouth as needed for Constipation. Dissolve one heaping tablespoon in 8 ounces of water or juice. 3 Active Albuterol Sulfate (2.5 MG/3ML) 0.083% Inhalation Nebulization Solution (Proventil)Indicatio ns:Moderate persistent asthma without complication Inhale 1 Vial via nebulizer every 6 hours as needed for Wheezing. 360 mL 11 3 Active Additional Information Patient taking differently:1 Vial Nebulizer Q6H PRN, Wheezing,Indications: Asthma, Reported on 05/26/2023 Vitamin D3 25 MCG (1000 UT) Oral CapsuleIndications:N utritional Support 3 Active Famotidine 20 MG Oral Tablet (Pepcid) Take 1 Tablet by mouth at bedtime. 30 Tablet 2 3 Active Additional Information Patient taking differently:20 mg OralHS PRN, Heartburn, Indications: Heartburn, Reported on 05/26/2023 Mucinex DM 30-600 MG Oral Tablet Extended Release 12 HourIndications:Professor Of Art giuliana Cough Take 1 Tablet by mouth 2 times a day as needed for Cough. Take with plenty of water. Do not cut, crush or chew 40 Tablet 2 3 Active Azelastine HCl 0.1 % Nasal Solution (Astelin) Administer 2 Sprays into nostril in the morning and 2 Sprays before bedtime. 90 mL 3 3 Active Additional Information Patient taking differently:2 [place] NasalBID PRN, Rhinitis, Indications: Allergic Rhinitis, Reported on 05/26/2023 Fluticasone Propionate 50 MCG/ACT Nasal Suspension (Flonase) Administer 2 Sprays into each nostril in the morning. 16 g 2 3 Active Additional Information Patient taking differently:2 [place] Each Nostril Daily(AM),Indications: Allergic Rhinitis, Reported on 05/26/2023 Omeprazole 40 MG Oral Capsule Delayed Release (PriLOSEC)Indication s:Heartburn Take 1 Capsule by mouth daily as needed for Heartburn. 3 Active Levocetirizine Dihydrochloride 5 MG Oral Tablet TAKE 1/2 TABLET BY MOUTH EVERY OTHER DAY 15 Tablet 5 3 Active Additional Information Patient taking differently:, TAKE 1/2 TABLET BY MOUTH EVERY OTHER DAY,Indications: Allergic Rhinitis, Reported on 05/26/2023 PARoxetine HCl 30 MG Oral Tablet (Paxil)Indications:G eneralized anxiety disorder TAKE 1 TABLET BY MOUTH ONCE DAILY IN THE MORNING 90 Tablet 1 4 Active Montelukast Sodium 10 MG Oral Tablet (Singulair)Indicatio ns:Asthma TAKE 1 TABLET BY MOUTH AT BEDTIME 90 Tablet 1 4 Active Allopurinol 100 MG Oral Tablet (Zyloprim)Indication s:Gout Prophylaxis Take 2 Tablets by mouth in the morning. 4 Active methylPREDNISolone 4 MG Oral Tablet Therapy Pack (Medrol Dosepack) follow package directions 21 Tablet 4 Active Additional Information Patient not taking.Reported on 11/22/2023 LORazepam 1 MG Oral Tablet (Ativan)Indications: ETTA (generalized anxiety disorder) Take 1 Tablet by mouth 3 times a day as needed for Anxiety. 30 Tablet 4 Active Metoprolol Succinate ER 25 MG Oral Tablet Extended Release 24 Hour (toPROL XL)Indications:Essen tial hypertension with goal blood pressure less than 140/90 Take 1 Tablet by mouth in the morning. 90 Tablet 3 4 Active Albuterol Sulfate HFA 108 (90 Base) MCG/ACT Inhalation Aerosol SolutionIndications: Moderate persistent asthma without complication Inhale 2 Puffs by mouth every 6 hours as needed for Shortness of Breath. 18 g 5 4 Active Trelegy Ellipta 100-62.5-25 MCG/ACT Aerosol Powder Breath Activated (Fluticasone-Umeclid inium-Vilanterol) Inhale 1 Puff by mouth in the morning. 60 Blister Dosing Unit 4 Active Spironolactone 25 MG Oral Tablet (Aldactone) TAKE 1 TABLET BY MOUTH ONCE DAILY IN THE MORNING 30 Tablet 6 4 Active Warfarin Sodium 2.5 MG Oral Tablet (Coumadin)Indication s:takes in the evening Take 1 tablet daily Or as directed by coag clinic 90 Tablet 3 4 Active predniSONE 2.5 MG Oral Tablet (Deltasone) Take 1 Tablet by mouth in the morning. 30 Tablet 3 4 Active Levothyroxine Sodium 75 MCG Oral Tablet (Levoxyl)Indications :Hypothyroidism due to acquired atrophy of thyroid TAKE 1 TABLET BY MOUTH ONCE DAILY AT NOON AT LEAST 30 MINUTES PRIOR TO BREAKFAST OR OTHER MEDS 90 Tablet 2 4 Active Lisinopril-hydroCHLO ROthiazide 20-12.5 MG Oral TabletIndications:HT N, goal below 130/80,CKD (chronic kidney disease) stage 3, GFR 30-59 ml/min (HCC) TAKE TWO TABLETS BY MOUTH 8AM 180 Tablet 2 4 Active Pravastatin Sodium 10 MG Oral Tablet (Pravachol)Indicatio ns:Dyslipidemia TAKE 1 TABLET BY MOUTH AT BEDTIME 90 Tablet 2 4 Active Hospital, Clinic, or Other Facility Administered Medication Ordered Dose Route Frequency Start Date End Date Status Denosumab (Prolia) subcut inj 60 mgIndications:Senile osteoporosis 60 mg SC [id number] 03/04/2023 02/27/2024 Active documented as of this encounter (statuses as of 12/29/2023) Active Problems Problem Noted Date Diagnosed Date Anticoagulation management encounter 10/18/2023 Acute bronchiolitis, unspecified 09/22/2023 Hypertensive kidney disease with stage 3b chronic kidney disease 08/09/2023 Overview: Per CKD protocol Chronic kidney disease, stage 3b 08/09/2023 Overview: Per CKD protocol Class 1 obesity due to exces s calories with serious comorbidity and body mass index (BMI) of 31.0 to 31.9 in adult 07/05/2023 Chronic cough 04/05/2023 Nonallergic rhinitis 04/05/2023 Nasal septal perforation 04/05/2023 Mild aortic regurgitation 03/04/2023 Essential tremor 12/16/2022 History of TIA (transient ischemic attack) 12/16 Gastro-esophageal reflux disease without esophag itis 10/10/2021 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 History of pulmonary embolism 06/19/2019 Generalized anxiety disorder 06/19/2019 Moderate persistent asthma without complication 06/19/2019 Age-related osteoporosis wit hout current pathological fracture 06/19/2019 Lung nodules 06/19/2019 Hypothyroidism due to acquired atrophy of thyroi d 03/12/2017 Irritable bowel syndrome with diarrhea 7 Vocal cord dysfunction 07/29/2016 Dyslipidemia, goal LDL below 100 08/15/2009 IDIO PROG POLYNEUROPATHY 08/02/2000 Chronic rhinitis Essential hypertension with goal blood pressure less than 140/90 documented as of this encounter (statuses as of 12/29/2023) Resolved Problems Problem Noted Date Diagnosed Date Resolved Date Mild persistent asthma without complication 04/05/2023 08/11/2023 Memory changes 12/16/2022 01/28/2023 Chronic kidney disease, stage 3a 08/06/2020 08/11/2023 Overview: Per CKD protocol Hypertensive kidney disease with stage 3a chronic kidney disease 02/05/2020 08/11/2023 Overview: Per CKD protocol ETTA (generalized anxiety disorder) 06/19/2019 06/19/2019 Pulmonary embolism 02/02/2019 0 Hypertensive kidney disease with chronic kidney disease stage III 08/30/2018 02/08/2020 Overview: Per CKD protocol Kidney disease, chronic, sta ge III (GFR 30-59 ml/min) 08/17/2017 09/07/2018 Overview: Per CKD protocol #1 Acute serous otitis media 10/04/2010 Other specified acquired hypothyroidism 08/15/2009 08/15/2009 Osteoporosis 11/15/2008 12/11/2019 ADVANCE DIRECTIVE INFORMATION 02/24/2006 06/19/2019 Overview: Yes-advised to bring copy in to be scanned into EMR. OSTEOARTHROS NOS-HAND 10/17/20022019 ADJ DISORDER W/DEPRES MOOD 10/18/2001 1 05/12/2011 Asthma, moderate persistent 10/18/2001 06/19/2019 Overview: ICD-10 update of inactive term documented as of this encounter (statuses as of 12/29/2023) Immunizations Name Administration Dates Next Due COVID-19 mRNA, LNP-s, No Pre serve, 2-Dose Series (Moderna) 01/23/2021,05/13/2020,04/15/2020 COVID-19, MRNA-LNP, 23-24, P F, 50 MCG/0.5 mL, 12 YRS AND ABOVE, IM (MODERNA-Spikevax) 01/27/2023 Covid-19, Mrna, Lnp-s, Pf, B ivalent, 50 Mcg, IM, 12 yrs and above (Moderna) 03/18/2022 HEP A - Hepatitis A (Adult > 18 yrs) 05/06/2010 Pneumococcal Conjugate Vacc, 13 Valent (Prevnar) 07/20/2014 Pneumococcal Polysaccharide PPV23 (Pneumovax) 01/30/2008 Seasonal Influenza Vac., MDV , IM, 0.5 mL (Fluzone) 01/18/2014,02/06/2013,03/11/2012,01/09,01/08/2010,12/29/2008,01/30/2008 ,02/10/2007,02/24/2006 Seasonal Influenza, PF, 6 M & above, IM , (FluLaval or Fluzone) 01/13/2017 Seasonal Influenza, Quadriva lent Hd (Fluzone Hd) 01/05/2023,01/16/2022,12/27/2020 Seasonal Influenza, Quadriva lent Hd, 65+ Yrs 12/30/2019 Seasonal Influenza, Quadriva lent, No Preserve, IM 02/04/2018,01/27/2016,02/12/2015 Seasonal Influenza, Trivalen t, Adjuvanted, 65+ YRS, PF, (Fluad) 12/30/2018 TD, Preservative Free 02/17/2010 TDAP (age 10 and older)(Boostrix) 09/07/2013 TDAP, Age 7 and older, IM (Adacel) 12/01/2023 Varicella Zoster Vaccine (Adult) 02/10/2007 documented as of this encounter Social History Tobacco Use Types Packs/Day Years Used Date Smoking Tobacco: Never Smokeless Tobacco: Never Alcohol Use Standard Drinks/Week Comments Yes 0 (1 standard drink = 0.6 oz pur e alcohol) sparingly PHQ-2 Answer Date Recorded PHQ Adult Total Score 0 07/21/2022 Hunger Vital Sign Answer Date Recorded Within the past 12 months, y ou worried that your food would run out before you got the money to buy more. Never true 07/22/19 Within the past 12 months, t he food you bought just didn't last and you didn't have money to get more. Never true 07/21/2022 Utilities Answer Date Recorded Do you have trouble paying y our heating, water, or electric bill? (Adult - for ages 18 years and over) Not on file 09/14/2023 Is your family able to pay t he heat, water, or electric bill? (Household - for ages 0-17 years) Not on file 09/14/2023 Does your family have access to good internet? (Household - for ages 0-17 years) Not on file 09/14/2023 Social Connections Answer Date Recorded How often do you feel lonely or isolated from those around you? (Adult - for ages 18 years and over) Not on file 09/14/2023 Sex and Gender Information Value Date Recorded Sex Assigned at Female 06/19/2019 9:31 AM EDT Gender Identity Female 06/19/2019 9:31 AM EDT Sexual Orientation Straight 06/19/2019 9: 31 AM EDT Job Start Date Occupation Industry Not on file Not on file Not on file documented as of this encounter Progress Notes * Pancho Perez RP - 12/29/2023 11:15 AM EDT Systolic Diastolic HR 131 65 70 145 50 66 133 67 66 125 61 69 134 59 66 128 71 64 Systolic Diastolic HR Average 133 62 67 Hi 145 71 70 Lo 125 50 64 Range 20 21 6 Pt's currently on hospice. No med changes at this time as BP elevated likely due to stress. Pancho Perez, PharmD, BCACP, RPH Clinical Pharmacist 12/29/2023, 11:21 AM * Lucie Cade LPN - 12/29/2023 9:39 AM EDT Horacio Yeung [phone] Horacio Yeung is currently participating in the [employer] Hypertension Management Program and had a reading on 12/29/23 of 131/65. Pt has alerted for an Average BP over 7 days >/= 130/80 . Parameters are currently set as follows: Average BP over 7 days >/= 130/80 Singular Systolic BP Reading </= 90 or >/=180 Singular Diastolic BP Reading </= 50 or >/=120 Patient is not reporting new symptoms or concerns. Please note, per text from pt, "Hubbie on palliative care. Failing, family all here. I may not keepup with BPs in the next week please excuse Ill take a breather" Please review the recent history of home RPM readings in Epic Synopsis Flowsheets and work with your clinical staff if any additional actions or interventions are required. If you would like to customize the alert parameters and/or instructions for this patient, please let me know and we can have them changed. Thank you! Lucie Cade LPN documented in this encounter Plan of Treatment Upcoming Encounters Date Type Department Care Team (Late st Contact Info) Description 01/03/2024 10:30 AM EDT [facility] [place] [address] [place] [address] Pharmacist2, [facility] [address] [place] [phone] 02/22/2024 11:15 AM EST Office [facility] [place] [address] [place] [address] Phil Perez MD [address] [facility] [place] [id number] 03/09/2024 11:20 AM EST Office Visit General Internal Medicine [facility] [address] [facility] [place] [address] Phil Maldonado MD [address] [facility] [place] [address] 04/03/2024 12:40 PM EST Office Visit Pulmonary Medicine, [facility] [address] [facility] [place] [address] Stanley Chavez MD [address] [place] [facility] [place] [address] 04/07/2024 11:30 AM EST Office Visit Nephrology, [facility] [address] [place], [place] [address] Gena Walton PA-C [address] [facility] [place], [place] [address] Health Maintenance Due Date Last Done Comments Adult Wellness Visit 01/21/2022 01/21/2021 Depression Screening 07/22/2023 07/21/2022 COVID-19 Vaccine ( season) 2023 01/27/2023, 03/18/2022, 01/23/2021, Additional history exists Influenza Vaccine (FLU shot) (#1) 2023 01/05/2023, 01/16/2022, 12/27/2020, Additional history exists GFR 02/24/2024 08/24/2023, 04/0 10/2023, 02/04/2023, Additional history exists CKD HGB USE SMARTSET 10300 07/04/202407/04, 07/05/2023, 02/04/2023, Additional history exists CKD PHOS USE SMARTSET 77151 08/10/2024 0507/2023, 08/25/2022, 06/26/2021, Additional history exists TSH 08/10/2024 08/11/2023, 04/0 10/2023, 02/04/2023, Additional history exists Albumin/Creatinine Ratio 08/11/2024 024, 08/26/2022, 06/30/2021, Additional history exists DXA Scan 10/04/2025 10/05/2023, 070 11/2023, 09/30/2021, Additional history exists DTap/Tdap Vaccines (3 - Td or Tdap) 11/30/2033 12/01/2023, 09/07/2013, 02/17/2010, Additional history exists Zoster Vaccines Discontinued 02/10/2007 Pneumococcal Vaccine: 65+ Years Completed 07/20/2014, 01/30/2008, 10/16/1994 VITAMIN D LEVEL ONCE IN A LIFETIME-USE SMARTSET# [id number] Completed 08/24/2023, 04/01/2023, 11/13/2022, Additional history exists HPV (Gardasil) Vaccine Aged Out No lo nger eligible based on patient's age to complete this topic MENINGOCOCCAL (MENACTRA/MENVEO) Aged Out No longer eligible based on patient's age to complete this topic documented as of this encounter Medical Devices Implanted Type Area Security Analyst Device Identifier Shelf Expiration Date Model / Serial / Lot Lens Intraoc 22.0 - [id number] - [id number] Implanted:Qty: 1 on 07/01/2021 by Gee Hagen MD at OR [facility] Right: Eye [employer] 02/25/2026 [id number] / [id number] / [id number] Lens Intraoc 19.5 - [id number] - [id number] Implanted:Qty: 1 on 07/15/2021 by Gee Hagen MD at OR [facility] Left: Eye [employer] LOM[employer] 02/25/2026 [id number] / [id number] / documented as of this encounter Visit Diagnoses Diagnosis HTN, goal below 130/80- Primary Unspecified essential hypertension Essential hypertension with goal blood pressure less than 140/90 documented in this encounter Care Teams Patch Worker Relationship Specialty Start Date End Date Phil Maldonado MD [address] [facility] [place] [address] PCP - General Internal Medicine 06/19/19 documented as of this encounter
--- OUTSIDE RECORDS SUMMARY | 2024-01-02 15:33 | External Medical Summary | Summary of Care ---
Author Name Unknown Organization [facility] Address [address] [place] [address] Phone [phone] Care Team Providers Care Wholesale Representative Name Role Phone Phil Miller MD Primary Care Provider + Reason for Visit * Reason Comments eRx-Medication Refill Encounter Details Date Type Department Care Team (Late st Contact Info) Description 12/20/2023 Refill General Internal Medicine [facility] [address] [place] [address] Phil Miller MD [address] [place] [address] Hypothyroidism due to acquired atrophy of thyroid; HTN, goal below 130/80; CKD (chronic kidney disease) stage 3, GFR 30-59 ml/min ([facility]); Dyslipidemia Allergies Active Allergy Reactions Criticality Noted Date Comments Azithromycin Anaphylaxis High 08/11/2023 Sulfa Antibiotics Hives 10/29/1998 documented as of this encounter (statuses as of 12/21/2023) Medications Medication Sig Dispensed Refills Start Date End Date Status COMPRESSOR/NEBULIZE R MISCIndications:Yina terial pneumonia,Asthma, mild persistent use for DuoNeb administration 1 Each 0 06/06/19 15 Active Spacer/Aero-Holding Chambers DEVIIndications:Ast hma, mild persistent Use with inhalers as instructed. 1 Device 2 05/06/19 17 Active Prolia 60 MG/ML Subcutaneous Solution Prefilled Syringe (denosumab)Indicati ons:Osteoporosis Inject 60 mg under the skin every 6 months. 1 Each 02/06/20 Active Acetaminophen 500 MG Oral Tablet (Tylenol)Indication s:Neck pain,Chronic right shoulder pain Take 2 Tablets by mouth every 12 hours as needed for Pain, Mild. 100 Tab 10/05/19 Active Dicyclomine HCl 10 MG Oral Capsule (Bentyl)Indications :Irritable bowel syndrome with diarrhea TAKE 1 CAPSULE BY MOUTH 4 TIMES DAILY NEEDED FOR ABDOMINAL PAIN/CRAMPING. 120 Capsule 11 01/17/20 22 Active Additional Information Patient taking differently:, TAKE 1 CAPSULE BY MOUTH 4 TIMES DAILY NEEDED FOR ABDOMINAL PAIN/CRAMPING.,Indications: Abdominal Pain, Reported on 05/26/2023 Polyethylene Glycol 3350 17 GM/SCOOP Oral PowderIndications:C onstipation Prophylaxis Take 17 g by mouth as needed for Constipation. Dissolve one heaping tablespoon in 8 ounces of water or juice. 04/20/19 Active Albuterol Sulfate (2.5 MG/3ML) 0.083% Inhalation Nebulization Solution (Proventil)Indicati ons:Moderate persistent asthma without complication Inhale 1 Vial via nebulizer every 6 hours as needed for Wheezing. 360 mL 11 05/07/19 Active Additional Information Patient taking differently:1 Vial Nebulizer Q6H PRN, Wheezing,Indications: Asthma, Reported on 05/26/2023 Vitamin D3 25 MCG (1000 UT) Oral CapsuleIndications: Nutritional Support 05/12/19 Active Famotidine 20 MG Oral Tablet (Pepcid) Take 1 Tablet by mouth at bedtime. 30 Tablet 2 08/29/19 23 Active Additional Information Patient taking differently:20 mg OralHS PRN, Heartburn, Indications: Heartburn, Reported on 05/26/2023 Mucinex DM 30-600 MG Oral Tablet Extended Release 12 HourIndications:Chr onic Cough Take 1 Tablet by mouth 2 times a day as needed for Cough. Take with plenty of water. Do not cut, crush or chew 40 Tablet 2 12/04/19 23 Active Azelastine HCl 0.1 % Nasal Solution (Astelin) Administer 2 Sprays into nostril in the morning and 2 Sprays before bedtime. 90 mL 3 01/15/20 23 Active Additional Information Patient taking differently:2 [place] NasalBID PRN, Rhinitis, Indications: Allergic Rhinitis, Reported on 05/26/2023 Fluticasone Propionate 50 MCG/ACT Nasal Suspension (Flonase) Administer 2 Sprays into each nostril in the morning. 16 g 2 02/10/20 23 Active Additional Information Patient taking differently:2 [place] Each Nostril Daily(AM),Indications: Allergic Rhinitis, Reported on 05/26/2023 Omeprazole 40 MG Oral Capsule Delayed Release (PriLOSEC)Indicatio ns:Heartburn Take 1 Capsule by mouth daily as needed for Heartburn. 01/21/20 23 Active Levocetirizine Dihydrochloride 5 MG Oral Tablet TAKE 1/2 TABLET BY MOUTH EVERY OTHER DAY 15 Tablet 5 03/17/20 23 Active Additional Information Patient taking differently:, TAKE 1/2 TABLET BY MOUTH EVERY OTHER DAY,Indications: Allergic Rhinitis, Reported on 05/26/2023 PARoxetine HCl 30 MG Oral Tablet (Paxil)Indications: Generalized anxiety disorder TAKE 1 TABLET BY MOUTH ONCE DAILY IN THE MORNING 90 Tablet 1 08/04/19 24 Active Montelukast Sodium 10 MG Oral Tablet (Singulair)Indicati ons:Asthma TAKE 1 TABLET BY MOUTH AT BEDTIME 90 Tablet 1 08/04/19 24 Active Allopurinol 100 MG Oral Tablet (Zyloprim)Indicatio ns:Gout Prophylaxis Take 2 Tablets by mouth in the morning. 08/11/19 24 Active methylPREDNISolone 4 MG Oral Tablet Therapy Pack (Medrol Dosepack) follow package directions 21 Tablet 09/13/19 24 Active Additional Information Patient not taking.Reported on 11/22/2023 LORazepam 1 MG Oral Tablet (Ativan)Indications :ETTA (generalized anxiety disorder) Take 1 Tablet by mouth 3 times a day as needed for Anxiety. 30 Tablet 10/18/19 24 Active Metoprolol Succinate ER 25 MG Oral Tablet Extended Release 24 Hour (toPROL XL)Indications:Esse ntial hypertension with goal blood pressure less than 140/90 Take 1 Tablet by mouth in the morning. 90 Tablet 3 10/18/19 24 Active Albuterol Sulfate HFA 108 (90 Base) MCG/ACT Inhalation Aerosol SolutionIndications :Moderate persistent asthma without complication Inhale 2 Puffs by mouth every 6 hours as needed for Shortness of Breath. 18 g 5 11/17/19 24 Active Trelegy Ellipta 100-62.5-25 MCG/ACT Aerosol Powder Breath Activated (Fluticasone-Umecli dinium-Vilanterol) Inhale 1 Puff by mouth in the morning. 60 Blister Dosing Unit 11/18/19 24 Active Spironolactone 25 MG Oral Tablet (Aldactone) TAKE 1 TABLET BY MOUTH ONCE DAILY IN THE MORNING 30 Tablet 6 11/23/19 24 Active Warfarin Sodium 2.5 MG Oral Tablet (Coumadin)Indicatio ns:takes in the evening Take 1 tablet daily Or as directed by coag clinic 90 Tablet 3 12/16/19 24 Active predniSONE 2.5 MG Oral Tablet (Deltasone) Take 1 Tablet by mouth in the morning. 30 Tablet 3 12/19/19 24 Active Levothyroxine Sodium 75 MCG Oral Tablet (Levoxyl)Indication s:Hypothyroidism due to acquired atrophy of thyroid TAKE 1 TABLET BY MOUTH ONCE DAILY AT NOON AT LEAST 30 MINUTES PRIOR TO BREAKFAST OR OTHER MEDS 90 Tablet 2 12/21/19 24 Active Lisinopril-hydroCHL OROthiazide 20-12.5 MG Oral TabletIndications:H TN, goal below 130/80,CKD (chronic kidney disease) stage 3, GFR 30-59 ml/min ([facility]) TAKE TWO TABLETS BY MOUTH 8AM 180 Tablet 2 12/21/19 24 Active Pravastatin Sodium 10 MG Oral Tablet (Pravachol)Indicati ons:Dyslipidemia TAKE 1 TABLET BY MOUTH AT BEDTIME 90 Tablet 2 12/21/19 24 Active Levothyroxine Sodium 75 MCG Oral Tablet (Levoxyl)Indication s:Hypothyroidism due to acquired atrophy of thyroid Take 1 Tablet by mouth daily first thing in the morning. AT LEAST 30 MINUTES PRIOR TO BREAKFAST OR OTHER MEDS 90 Tablet 3 12/24/19 23 024 Discontinued Pravastatin Sodium 10 MG Oral Tablet (Pravachol)Indicati ons:Dyslipidemia TAKE 1 TABLET BY MOUTH AT BEDTIME 90 Tablet 3 01/22/20 23 024 Discontinued Lisinopril-hydroCHL OROthiazide 20-12.5 MG Oral TabletIndications:H ypertension Take 2 Tablets by mouth in the morning. 180 Tablet 1 07/09/19 24 024 Discontinued Hospital, Clinic, or Other Facility Administered Medication Ordered Dose Route Frequency Start Date End Date Status Denosumab (Prolia) subcut inj 60 mgIndications:Senile osteoporosis 60 mg SC [id number] 03/04/2023 02/27/2024 Active documented as of this encounter (statuses as of 12/21/2023) Active Problems Problem Noted Date Diagnosed Date [...] as of this encounter (statuses as of 12/21/2023) Resolved Problems Problem Noted Date Diagnosed Date [...] as of this encounter (statuses as of 12/21/2023) Immunizations Name Administration Dates Next Due COVID-19 [...] 07/20/2014 Pneumococcal Polysaccharide PPV23 (Pneumovax) 01/30/2008 Seasonal Influenza, PF, 6 M & above, IM , (FluLaval or Fluzone) 01/13/2017 Seasonal Influenza, Quadriva lent Hd (Fluzone Hd) 01/05/2023,01/16/2022,12/27/2020 Seasonal Influenza, Quadriva lent Hd, 65+ Yrs 12/30/2019 Seasonal Influenza, Quadriva lent, No Preserve, IM 02/04/2018,01/27/2016,02/12/2015 Seasonal Influenza, Trivalen t, (IIV3), with Preserv, (Fluzone) 01/18/2014,02/06/2013,03/11/2012,01/09,01/08/2010,12/29/2008,01/30/2008 ,02/10/2007,02/24/2006 Seasonal Influenza, Trivalen t, Adjuvanted, 65+ YRS, [...] money to buy more. Never true 07/22/19 23 Within the past 12 months, t he [...] on file documented as of this encounter Miscellaneous Notes * Telephone Encounter - Deniz Villa jaymie - 12/21/2023 4:18 PM EDT Signed Prescriptions: Disp Refills Levothyroxine Sodium 75 MCG Oral Tablet (L*90 Tab*2 Sig: TAKE 1 TABLET BY MOUTH ONCE DAILY AT NOON AT LEAST 30 MINUTES PRIOR TO BREAKFAST OR OTHER MEDSAuthorizing Provider: PHIL MILLER User: DENIZ VILLA Lisinopril-hydroCHLOROthiazide 20-12.5 MG *180 Ta*2 Sig: TAKE TWO TABLETS BY MOUTH 8AMAuthorizing Provider: Greta MILLER User: DENIZ VILLA Pravastatin Sodium 10 MG Oral Tablet (Prav*90 Tab*2 Sig: TAKE 1 TABLET BY MOUTH AT BEDTIMEAuthorizing Provider: PHIL MILLER User: GIL VILLA documented in this encounter Plan of Treatment Upcoming Encounters Date Type Department Care Team (Late st Contact Info) Description 12/28/2023 11:40 AM EDT Immunization [place] [facility] [place] [address] [place] [address] Sp, [facility] Shot Clinic [address] [place] [address] 01/03/2024 10:30 AM EDT Anticoagulation Pharmacy, [facility] [address] [facility] [place], [place] [address] Pharmacist2, [facility] [address] [facility] [place], [place] [address] 02/22/2024 11:15 AM EST Office Visit Dermatology [facility] [address] [facility] [place] [address] Phil Perez MD [address] [facility] [place] [address] 03/09/2024 11:20 AM EST Office Visit General Internal Medicine [facility] [address] [facility] [place] [address] Phil Miller MD [address] [facility] [place] [address] 04/03/2024 12:40 PM EST Office Visit Pulmonary Medicine, [facility] [address] [place] [address] Stanley Chavez MD [address] [place] [facility] [place] [address] 04/07/2024 11:30 AM EST Office Visit Nephrology, [facility] [address] [facility] [address] [place] [address] Gena Walton PA-C [address] [facility] [place] [address] Health Maintenance Due Date Last Done Comments Adult Wellness Visit 01/21/2022 01/21/2021 Depression Screening 07/22/2023 07/21/2022 COVID-19 Vaccine ( season) 2023 01/27/2023, 03/18/2022, 01/23/2021, Additional history exists Influenza Vaccine (FLU shot) (#1) 2023 01/05/2023, 01/16/2022, 12/27/2020, Additional history exists GFR 02/24/2024 08/24/2023, 04/0 10/2023, 02/04/2023, Additional history exists CKD HGB USE SMARTSET 57836 07/04/202407/04, 07/05/2023, 02/04/2023, Additional history exists CKD PHOS USE SMARTSET 54906 08/10/20241 07/2023, 08/25/2022, 06/26/2021, Additional history exists TSH 08/10/2024 08/11/2023, 040 10/2023, 02/04/2023, Additional history exists Albumin/Creatinine Ratio 08/11/2024 024, 08/26/2022, 06/30/2021, Additional history exists DXA Scan 10/04/2025 10/05/2023, 0 11/2023, 09/30/2021, Additional history exists DTap/Tdap Vaccines (3 - Td or Tdap) 11/30/2033 12/01/2023, 09/07/2013, 02/17/2010, Additional history exists Zoster Vaccines Discontinued 02/10/2007 Pneumococcal Vaccine: 65+ Years Completed 07/20/2014, 01/30/2008, 10/16/1994 VITAMIN D LEVEL ONCE IN A LIFETIME-USE SMARTSET# [id number] Completed 08/24/2023, 04/01/2023, 11/13/2022, Additional history exists HPV (Gardasil) Vaccine Aged Out No lo nger eligible based on patient's age to complete this topic MENINGOCOCCAL (MENACTRA/MENVEO) Aged Out No longer eligible based on patient's age to complete this topic documented as of this encounter Medical Devices Implanted Type Area Surface Boss Device Identifier Shelf Expiration Date Model / Serial / Lot Lens Intraoc 22.0 - [id number] - [id number] Implanted:Qty: 1 on 07/01/2021 by Gee Hagen MD at OR [facility] Right: Eye BAUSCH & LOMB 02/25/2026 [id number] / [id number] / [id number] Lens Intraoc 19.5 - [id number] - [id number] Implanted:Qty: 1 on 07/15/2021 by Gee Hagen MD at OR [facility] Left: Eye BAUSCH & LOMB 02/25/2026 [id number] / [id number] / documented as of this encounter Visit Diagnoses Diagnosis Hypothyroidism due to acquired atrophy of thyroid HTN, goal below 130/80 Unspecified essential hypertension CKD (chronic kidney disease) stage 3, GFR 30-59 ml/min (HCC) Chronic kidney disease, Stage III (moderate) Dyslipidemia Other and unspecified hyperlipidemia documented in this encounter Care Teams Wholesale Representative Relationship Specialty Start Date End Date Phil Miller MD [address] [facility] [place] [address] PCP - General Internal Medicine 06/19/19 documented as of this encounter
--- OUTSIDE RECORDS SUMMARY | 2024-01-02 15:33 | External Medical Summary | Summary of Care ---
Author Name Unknown Organization [facility] Address [address] [place] [address] Phone [phone] Care Team Providers Care Oil Pipe Inspector Helper Name Role Phone Phil Maldonado MD Primary Care Provider + Encounter Details Date Type Department Care Team (Late st Contact Info) Description 12/16/2023 Population Health External Data Unspecified Department Allergies Active Allergy Reactions Criticality Noted Date Comments Azithromycin Anaphylaxis High 08/11/2023 Sulfa Antibiotics Hives 10/29/1998 documented as of this encounter (statuses as of 12/20/2023) Medications Medication Sig Dispensed Refills Start Date [...] 30-600 MG Oral Tablet Extended Release 12 HourIndications:Bonding And Composite Fabricator giuliana Cough Take 1 Tablet by mouth 2 times a day as needed for Cough. Take with plenty of water. Do not cut, crush or chew 40 Tablet 2 3 Active Levothyroxine Sodium 75 MCG Oral Tablet (Levoxyl)Indications :Hypothyroidism due to acquired atrophy of thyroid Take 1 Tablet by mouth daily first thing in the morning. AT LEAST 30 MINUTES PRIOR TO BREAKFAST OR OTHER MEDS 90 Tablet 3 3 Active Additional Information Patient taking differently:75 mcg Oral [id number], AT LEAST 30 MINUTES PRIOR TO BREAKFAST OR OTHER MEDS,Indications: Hypothyroidism, Reported on 05/26/2023 Azelastine HCl 0.1 % Nasal Solution (Astelin) Administer 2 Sprays into nostril in the morning and 2 Sprays before bedtime. 90 mL 3 3 Active Additional Information Patient taking differently:2 [place] NasalBID PRN, Rhinitis, Indications: Allergic Rhinitis, Reported on 05/26/2023 Pravastatin Sodium 10 MG Oral Tablet (Pravachol)Indicatio ns:Dyslipidemia TAKE 1 TABLET BY MOUTH AT BEDTIME 90 Tablet 3 3 Active Additional Information Patient taking differently: Indications: Hyperlipidemia, Reported on 05/26/2023 Fluticasone Propionate 50 MCG/ACT Nasal Suspension (Flonase) Administer 2 Sprays into each nostril in the morning. 16 g 2 3 Active Additional Information Patient taking differently:2 [place] Each Nostril Daily(AM),Indications: Allergic Rhinitis, Reported on [...] OTHER DAY,Indications: Allergic Rhinitis, Reported on 05/26/2023 Lisinopril-hydroCHLO ROthiazide 20-12.5 MG Oral TabletIndications:Hy pertension Take 2 Tablets by mouth in the morning. 180 Tablet 1 4 Active PARoxetine HCl 30 MG Oral Tablet (Paxil)Indications:G [...] coag clinic 90 Tablet 3 4 Active Hospital, Clinic, or Other Facility Administered Medication Ordered Dose Route Frequency Start Date End Date Status Denosumab (Prolia) subcut inj 60 mgIndications:Senile osteoporosis 60 mg SC [id number] 03/04/2023 02/27/2024 Active documented as of this encounter (statuses as of 12/20/2023) Active Problems Problem Noted Date Diagnosed Date [...] as of this encounter (statuses as of 12/20/2023) Resolved Problems Problem Noted Date Diagnosed Date [...] as of this encounter (statuses as of 12/20/2023) Immunizations Name Administration Dates Next Due COVID-19 [...] on file documented as of this encounter Plan of Treatment Upcoming Encounters Date Type Department Care Team (Late st Contact Info) Description 12/28/2023 11:40 AM EDT Immunization Ancillary [facility] [place] [address] [place] [address] Sp, Flu Shot Clinic [address] [place] [address] 01/03/2024 10:30 AM EDT Anticoagulation Pharmacy, [facility] [place] [address] [place] [address] Pharmacist2, [facility] [address] [place] [address] 02/22/2024 11:15 AM EST Office Visit Dermatology [facility] [address] [place] [address] Phil Perez MD [address] [place] [address] 03/09/2024 11:20 AM EST Office Visit General Internal Medicine [facility] [address] [place] [address] Phil Maldonado MD [address] [place] [address] 04/03/2024 12:40 PM EST Office Visit Pulmonary Medicine, [facility] [address] [place] [address] Stanley Chavez MD [address] [place] [address] 04/07/2024 11:30 AM EST Office Visit Nephrology, [facility] [address] [place] [address] Gena Walton PA-C [address] [place] [address] Health Maintenance Due Date Last Done Comments Adult Wellness Visit 01/21/2022 01/21/2021 Depression Screening 07/22/2023 07/21/2022 COVID-19 Vaccine ( season) 2023 01/27/2023, 03/18/2022, 01/23/2021, Additional history exists Influenza Vaccine (FLU shot) (#1) 2023 01/05/2023, 01/16/2022, 12/27/2020, Additional history exists GFR 02/24/2024 08/24/2023, 04/0 10/2023, 02/04/2023, Additional history exists CKD HGB USE SMARTSET 18227 07/04/202407/04, 07/05/2023, 02/04/2023, Additional history exists CKD PHOS USE SMARTSET 24864 08/10/2024 051 07/2023, 08/25/2022, 06/26/2021, Additional history exists TSH [...] D LEVEL ONCE IN A LIFETIME-USE SMARTSET# [id number] Completed 08/24/2023, 04/01/2023, 11/13/2022, Additional history exists HPV (Gardasil) Vaccine Aged Out No lo nger eligible based on patient's age to complete this topic MENINGOCOCCAL (MENACTRA/MENVEO) Aged Out No longer eligible based on patient's age to complete this topic documented as of this encounter Medical Devices Implanted Type Area Continuous Weld Pipe Mill Supervisor Device Identifier Shelf Expiration Date Model / Serial / Lot Lens Intraoc 22.0 - [id number] - [id number] Implanted:Qty: 1 on 07/01/2021 by Gee Hagen MD at OR [facility] Right: Eye BAUSCH & LOMB 02/25/2026 [id number] / [id number] / [id number] Lens Intraoc 19.5 - [id number] - [id number] Implanted:Qty: 1 on 07/15/2021 by Gee Hagen MD at OR [facility] Left: Eye BAUSCH & LOMB 02/25/2026 [id number] / [id number] / documented as of this encounter Care Teams Oil Pipe Inspector Helper Relationship Specialty Start Date End Date Phil Maldonado MD [address] [facility] [place] [address] PCP - General Internal Medicine 06/19/19 documented as of this encounter
--- OUTSIDE RECORDS SUMMARY | 2024-01-02 15:33 | External Medical Summary | Summary of Care ---
Author Name Unknown Organization [facility] Address [address] [place] [address] Phone [phone] Care Team Providers Care Clinical Molecular Geneticist Name Role Phone Phil Maldonado MD Primary Care Provider + Reason for Visit * Reason Onset Date Comments Medication Refill 12/17/2023 prednisone Encounter Details Date Type Department Care Team (Late st Contact Info) Description 12/17/2023 Refill Pulmonary Medicine, [facility] [address] [facility] [place] [address] Stanley Martin MD [address] [facility] [place] [id number] Allergies Active Allergy Reactions Criticality Noted Date Comments Azithromycin Anaphylaxis High 08/11/2023 Sulfa Antibiotics Hives 10/29/1998 documented as of this encounter (statuses as of 12/19/2023) Medications Medication Sig Dispensed Refills Start Date End Date Status COMPRESSOR/NEBULIZE R MISCIndications:Yina terial pneumonia,Asthma, mild persistent use for DuoNeb administration 1 Each 0 5 Active Spacer/Aero-Holding Chambers DEVIIndications:Ast hma, mild persistent Use with inhalers as instructed. 1 Device 2 7 Active Prolia 60 MG/ML Subcutaneous Solution Prefilled Syringe (denosumab)Indicati ons:Osteoporosis Inject 60 mg under the skin every 6 months. 1 Each 0 Active Acetaminophen 500 MG Oral Tablet (Tylenol)Indication [...] MCG (1000 UT) Oral CapsuleIndications: Nutritional Support 3 Active Famotidine 20 MG Oral [...] Additional Information Patient taking differently:75 mcg Oral [id number], AT LEAST 30 MINUTES PRIOR TO BREAKFAST OR OTHER MEDS,Indications: Hypothyroidism, Reported on 05/26/2023 Azelastine HCl 0.1 % Nasal Solution (Astelin) Administer 2 Sprays into nostril in the morning and 2 Sprays before bedtime. 90 mL 3 3 Active Additional Information Patient taking differently:2 [place] NasalBID PRN, Rhinitis, Indications: Allergic Rhinitis, Reported on 05/26/2023 Pravastatin Sodium 10 MG Oral Tablet (Pravachol)Indicati ons:Dyslipidemia TAKE 1 TABLET BY MOUTH AT BEDTIME 90 Tablet 3 3 Active Additional Information Patient taking differently: Indications: Hyperlipidemia, Reported on 05/26/2023 Fluticasone Propionate 50 MCG/ACT Nasal Suspension (Flonase) Administer 2 Sprays into each nostril in the morning. 16 g 2 3 Active Additional Information Patient taking differently:2 [place] Each Nostril Daily(AM),Indications: Allergic Rhinitis, Reported on [...] OTHER DAY,Indications: Allergic Rhinitis, Reported on 05/26/2023 Lisinopril-hydroCHL OROthiazide 20-12.5 MG Oral TabletIndications:H ypertension Take 2 Tablets by mouth in the morning. 180 Tablet 1 4 Active PARoxetine HCl 30 MG Oral Tablet (Paxil)Indications: Generalized anxiety disorder TAKE 1 TABLET BY MOUTH ONCE DAILY IN THE MORNING 90 Tablet 1 4 Active Montelukast Sodium 10 MG Oral Tablet (Singulair)Indicati ons:Asthma TAKE 1 TABLET BY MOUTH AT BEDTIME 90 Tablet 1 4 Active Allopurinol 100 MG Oral Tablet (Zyloprim)Indicatio [...] the morning. 30 Tablet 3 4 Active predniSONE 2.5 MG Oral Tablet (Deltasone) Take 1 Tablet by mouth in the morning. 30 Tablet 3 4 12/17/19 24 Discontinu ed(Refill) Hospital, Clinic, or Other Facility Administered Medication Ordered Dose Route Frequency Start Date End Date Status Denosumab (Prolia) subcut inj 60 mgIndications:Senile osteoporosis 60 mg SC [id number] 03/04/2023 02/27/2024 Active documented as of this encounter (statuses as of 12/19/2023) Active Problems Problem Noted Date Diagnosed Date [...] as of this encounter (statuses as of 12/19/2023) Resolved Problems Problem Noted Date Diagnosed Date [...] as of this encounter (statuses as of 12/19/2023) Immunizations Name Administration Dates Next Due COVID-19 [...] encounter Miscellaneous Notes * Telephone Encounter - Stanley Martin MD - 12/19/2023 8:03 PM EDT Signed Prescriptions: Disp Refills predniSONE 2.5 MG Oral Tablet (Deltasone) 30 Tab*3 Sig: Take 1 Tablet by mouth in the morning. Authorizing Provider: STANLEY MARTIN * Telephone Encounter - Altagracia Green LPN - 12/17/2023 2:57 PM EDTPending Prescriptions: Disp Refills predniSONE 2.5 MG Oral Tablet (Deltasone) 30 Tab*3 Sig: Take 1 Tablet by mouth in the morning. documented in this encounter Plan of Treatment Upcoming Encounters Date Type Department Care Team (Late st Contact Info) Description 12/28/2023 11:40 AM EDT Immunization [facility]illary [facility] [place] [address] [place] [address] Sp, [facility] [address] [place] [address] 01/03/2024 10:30 AM EDT Anticoagulation Pharmacy, [facility] [place] [address] [place] [address] Pharmacist2, [facility] [address] [place] [address] 02/22/2024 11:15 AM EST Office Visit Dermatology [facility] [address] [facility] [place] [address] Phil Perez MD [address] [facility] [place] [address] 03/09/2024 11:20 AM EST Office Visit General Internal Medicine [facility] [address] [facility] [place] [address] Phil Maldonado MD [address] [facility] [place] [address] 04/03/2024 12:40 PM EST Office Visit Pulmonary Medicine, [facility] [address] [facility] [place] [address] Stanley Martin MD [address] [facility] [place] [address] 04/07/2024 11:30 AM EST Office Visit Nephrology, [facility] [address] [facility] [place] [address] ZeGena hoffman PA-C [address] [facility] [place] [address] Health Maintenance Due Date Last Done Comments Adult Wellness Visit 01/21/2022 01/21/2021 Depression Screening 07/22/2023 07/21/2022 COVID-19 Vaccine ( season) 2023 01/27/2023, 03/18/2022, 01/23/2021, Additional history exists Influenza Vaccine (FLU shot) (#1) 2023 01/05/2023, 01/16/2022, 12/27/2020, Additional history exists GFR 02/24/2024 08/24/2023, 04/0 10/2023, 02/04/2023, Additional history exists CKD HGB USE SMARTSET 64176 07/04/202407/04, 07/05/2023, 02/04/2023, Additional history exists CKD PHOS USE SMARTSET 80534 08/10/2024 051 07/2023, 08/25/2022, 06/26/2021, Additional history [...] D LEVEL ONCE IN A LIFETIME-USE SMARTSET# 26333 Completed 08/24/2023, 04/01/2023, 11/13/2022, Additional history exists HPV (Gardasil) Vaccine Aged Out No lo nger eligible based on patient's age to complete this topic MENINGOCOCCAL (MENACTRA/MENVEO) Aged Out No longer eligible based on patient's age to complete this topic documented as of this encounter Medical Devices Implanted Type Area Diesel Fitter Mechanic Device Identifier Shelf Expiration Date Model / Serial / Lot Lens Intraoc 22.0 - [id number] - [id number] Implanted:Qty: 1 on 07/01/2021 by Gee Hagen MD at OR [facility] Right: Eye [employer] 02/25/2026 [id number] / [id number] / [id number] Lens Intraoc 19.5 - [id number] - [id number] Implanted:Qty: 1 on 07/15/2021 by Gee Hagen MD at OR [facility] Left: Eye [employer]OM[employer] 02/25/2026 [id number] / [id number] / documented as of this encounter Care Teams Clinical Molecular Geneticist Relationship Specialty Start Date End Date Phil Maldonado MD [address] [place] [address] PCP - General Internal Medicine 06/19/19 documented as of this encounter
--- OUTSIDE RECORDS SUMMARY | 2024-01-02 15:34 | External Medical Summary | Summary of Care ---
Author Name Unknown Organization [facility] Address [address] [place] [address] Phone [phone] Care Team Providers Care Farrowing Manager Name Role Phone Phil Maldonado MD Primary Care Provider + Reason for Visit * Reason Onset Date Comments Remote Patient Monitoring Alert 11/09/2023 Encounter Details Date Type Department Care Team (Late st Contact Info) Description 11/09/2023 Home Monitoring Care Coordination [address], [place] [id number] HepShruti cash LPN HTN, goal below 130/80*; Essential hypertension with goal blood pressure less than 140/90 Allergies Active Allergy Reactions Criticality Noted Date Comments Azithromycin Anaphylaxis High 08/11/2023 Sulfa Antibiotics Hives 10/29/1998 documented as of this encounter (statuses as of 11/09/2023) Medications Medication Sig Dispensed Refills Start Date [...] PRN, Heartburn, Indications: Heartburn, Reported on 05/26/2023 Warfarin Sodium 2.5 MG Oral Tablet (Coumadin)Indication s:takes in the evening Take 1 tablet daily Or as directed by coag clinic 90 Tablet 3 3 Active Additional Information Patient taking differently:, Take 1 tablet daily Or as directed by coag clinic,Indications: Prophylaxis of DVT in Non-Haemorrhagic Stroke Patients, takes in the evening, Reported on 05/26/2023 Mucinex DM 30-600 MG Oral Tablet Extended Release 12 HourIndications: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 Take with plenty of water. Do not cut, crush or chew 40 Tablet 2 3 Active Albuterol Sulfate HFA 108 (90 Base) MCG/ACT Inhalation Aerosol SolutionIndications: Moderate persistent asthma without complication Inhale 2 Puffs by mouth every 6 hours as needed for Shortness of Breath. 18 g 5 3 Active Additional Information Patient taking differently:2 Puff Inhalation Q6H PRN, Shortness of Breath,Indications: Asthma, Reported on 05/26/2023 Levothyroxine Sodium 75 MCG Oral Tablet (Levoxyl)Indications :Hypothyroidism due to acquired atrophy of thyroid Take 1 Tablet by mouth daily first thing in the morning. AT LEAST 30 MINUTES PRIOR TO BREAKFAST OR OTHER MEDS 90 Tablet 3 3 Active Additional Information Patient taking differently:75 mcg Oral [id number], AT LEAST 30 MINUTES PRIOR TO BREAKFAST OR OTHER MEDS,Indications: Hypothyroidism, Reported on 05/26/2023 Azelastine HCl 0.1 % Nasal Solution (Astelin) Administer 2 Sprays into nostril in the morning and 2 Sprays before bedtime. 90 mL 3 3 Active Additional Information Patient taking differently:2 [place] NasalBID PRN, Rhinitis, Indications: Allergic Rhinitis, Reported [...] 3 Active Additional Information Patient taking differently:2 [place] Each Nostril Daily(AM),Indications: Allergic Rhinitis, Reported on [...] OTHER DAY,Indications: Allergic Rhinitis, Reported on 05/26/2023 Spironolactone 25 MG Oral Tablet (Aldactone) TAKE 1 TABLET BY MOUTH ONCE DAILY IN THE MORNING 30 Tablet 6 3 Active Additional Information Patient taking differently:, TAKE 1 TABLET BY MOUTH ONCE DAILY IN THE MORNING,Indications: Hypertension, Reported on 05/26/2023 Lisinopril-hydroCHLO ROthiazide 20-12.5 MG [...] follow package directions 21 Tablet 4 Active predniSONE 2.5 MG Oral Tablet (Deltasone) Take 1 Tablet by mouth in the morning. 30 Tablet 3 4 01/20/20 24 Active Trelegy Ellipta 100-62.5-25 MCG/ACT Aerosol Powder Breath Activated (Fluticasone-Umeclid inium-Vilanterol) Inhale 1 Puff by mouth in the morning. 60 Blister Dosing Unit 4 Active LORazepam 1 MG Oral Tablet (Ativan)Indications: ETTA (generalized anxiety disorder) Take 1 Tablet by mouth 3 times a day as needed for Anxiety. 30 Tablet 4 Active Metoprolol Succinate ER 25 MG Oral Tablet Extended Release 24 Hour (toPROL XL)Indications:Essen tial hypertension with goal blood pressure less than 140/90 Take 1 Tablet by mouth in the morning. 90 Tablet 3 4 Active Hospital, Clinic, or Other Facility Administered Medication Ordered Dose Route Frequency Start Date End Date Status Denosumab (Prolia) subcut inj 60 mgIndications:Senile osteoporosis 60 mg SC [id number] 03/04/2023 02/27/2024 Active documented as of this encounter (statuses as of 11/09/2023) Active Problems Problem Noted Date Diagnosed Date [...] as of this encounter (statuses as of 11/09/2023) Resolved Problems Problem Noted Date Diagnosed Date [...] as of this encounter (statuses as of 11/09/2023) Immunizations Name Administration Dates Next Due COVID-19 [...] lent, No Preserve, IM 02/04/2018,01/27/2016,02/12/2015 Seasonal Influenza, Split, I IV3, With Preserve, Inj 01/18/2014,02/06/2013,03/11/2012,01/09,01/08/2010,12/29/2008,01/30/2008 ,02/10/2007,02/24/2006 Seasonal Influenza, Trivalen t, Adjuvanted, 65+ yrs 12/30/2018 TD, Preservative Free 02/17/2010 TDAP (age 10 and older)(Boostrix) 09/07/2013 Varicella Zoster Vaccine (Adult) 02/10/2007 documented as [...] this encounter Progress Notes * Pancho Perez [facility] - 11/09/2023 10:36 AM EDT Systolic Diastolic HR 130 55 70 143 67 75 135 65 66 140 62 68 124 60 65 Systolic Diastolic HR Average 134 62 69 Hi 143 67 75 Lo 124 55 65 Range 19 12 10 Current temporary goal is <140/90 until the end of October. No other changes at this time to HTN regimen Hypertension Medications: DEC: Metoprolol ER 12.5mg QAM Lisinopril/HCTZ 20/12.5mg Take 2 tabs QAM (Max dose of lisinopril, some room on HCTZ) Aldactone 25mg QAM Pancho Perez, PharmD, BCACP, [facility] Clinical Pharmacist 11/09/2023, 10:36 AM * Shruti Portillo LPN - 11/09/2023 9:42 AM EDT Horacio Yeung [id number] Horacio Yeung is currently participating in the [facility] Hypertension Management Program and had a reading on 11/09/2023 of 130/55. Pt has alerted for an Average BP over 7 days >/= 130/80 . Parameters are currently set as follows: Average BP over 7 days >/= 130/80 Singular Systolic BP Reading </= 90 or >/=180 Singular Diastolic BP Reading </= 50 or >/=120 Patient is not reporting new symptoms or concerns. The patient does have all her blood pressure medications and is taking them as prescribed. Please review the recent history of home RPM readings in Epic Synopsis Flowsheets and work with your clinical staff if any additional actions or interventions are required. If you would like to customize the alert parameters and/or instructions for this patient, please let me know and we can have them changed. Thank you! Shruti Portillo LPN documented in this encounter Plan of Treatment Upcoming Encounters Date Type Department Care Team (Late st Contact Info) Description 11/22/2023 10:40 AM EDT Anticoagulation Pharmacy, [place] [place] [address] [place], [place] [address] Pharmacist2, [facility] [address] [place], [place] [address] 11/22/2023 12:00 PM EDT Office Visit Pulmonary Medicine, [facility] [address] [facility] [place] [address] Stanley Chavez [facility] [address] [facility] [address] 02/22/2024 11:15 AM EST Office Visit Dermatology [facility] [address] [place] [address] Phil Perez MD [address] [facility] [place] [address] 03/09/2024 11:20 AM EST Office Visit General Internal Medicine [facility] [address] [place], [place] [address] Phil Maldonado MD [address] [facility] [place], [place] [address] 04/07/2024 11:30 AM EST Office Visit Nephrology, [facility] [address] [place], [place] [address] Gena Walton PA-C [address] [facility] [place], [place] [address] 04/11/2024 1:00 PM EST Office Visit Rheumatology [place] [address] [place], [place] [address] Tristan Richards MD [address] [employer] [place], [place] [address] Health Maintenance Due Date Last Done Comments Adult Wellness Visit 01/21/2022 01/21/2021 COVID-19 Vaccine ( season) 2023 01/27/2023, 03/18/2022, 01/23/2021, Additional history exists Depression Screening 07/22/2023 07/21/2022 DTaP,Tdap,and Td Vaccines (2 - Td or Tdap) 09/08/2023 09/07/2013, 02/17/2010, 10/18/2001, Additional history exists Influenza Vaccine (FLU shot) (#1) 2023 01/05/2023, 01/16/2022, 12/27/2020, Additional history exists GFR 02/24/2024 08/24/2023, 04/0 10/2023, 02/04/2023, Additional history exists CKD HGB USE SMARTSET 04073 07/04/202407/04, 07/05/2023, 02/04/2023, Additional history exists CKD PHOS USE SMARTSET 63432 08/10/2024/1 07/2023, 08/25/2022, 06/26/2021, Additional history exists TSH 08/10/2024 08/11/2023, 04/0 10/2023, 02/04/2023, Additional history exists Albumin/Creatinine Ratio 08/11/2024 024, 08/26/2022, 06/30/2021, Additional history exists DXA Scan 10/04/2025 10/05/2023, 07/0 11/2023, 09/30/2021, Additional history exists Zoster Vaccines Discontinued 02/10/2007 Pneumococcal Vaccine: 65+ Years Completed 07/20/2014, 01/30/2008, 10/16/1994 VITAMIN D LEVEL ONCE IN A LIFETIME-USE SMARTSET# 84906 Completed 08/24/2023, 04/01/2023, 11/13/2022, Additional history exists HPV (Gardasil) Vaccine Aged Out No lo nger eligible based on patient's age to complete this topic MENINGOCOCCAL (MENACTRA/MENVEO) Aged Out No longer eligible based on patient's age to complete this topic documented as of this encounter Medical Devices Implanted Type Area Live Truck Technician Device Identifier Shelf Expiration Date Model / Serial / Lot Lens Intraoc 22.0 - [id number] - [id number] Implanted:Qty: 1 on 07/01/2021 by Gee Hagen MD at OR [facility] Right: Eye [employer] 02/25/2026 [id number] / [id number] / [id number] Lens Intraoc 19.5 - [id number] - [id number] Implanted:Qty: 1 on 07/15/2021 by Gee Hagen MD at OR [facility] Left: Eye [employer]OM[employer] 02/25/2026 [id number] / [id number] / documented as of this encounter Visit Diagnoses Diagnosis HTN, goal below 130/80- Primary Unspecified essential hypertension Essential hypertension with goal blood pressure less than 140/90 documented in this encounter Care Teams Farrowing Manager Relationship Specialty Start Date End Date Phil Maldonado MD [address] [place] [address] PCP - General Internal Medicine 06/19/19 documented as of this encounter
--- OUTSIDE RECORDS SUMMARY | 2024-01-02 15:34 | External Medical Summary | Summary of Care ---
Author Name Unknown Organization [facility] Address [address] [place] [address] Phone [phone] Care Team Providers Care Graining Press Operator Name Role Phone Phil Maldonado MD Primary Care Provider + Reason for Visit * Reason Onset Date Comments Home Monitoring Alarm 12/13/2023 Encounter Details Date Type Department Care Team (Late st Contact Info) Description 12/13/2023 Home Monitoring Care Coordination [address], [place] [id number] Lucie Cade, KELLE HTN, goal below 130/80* Allergies Active Allergy Reactions Criticality Noted Date Comments Azithromycin Anaphylaxis High 08/11/2023 Sulfa Antibiotics Hives 10/29/1998 documented as of this encounter (statuses as of 12/13/2023) Medications Medication Sig Dispensed Refills Start Date [...] 30-600 MG Oral Tablet Extended Release 12 HourIndications:Laboratory Phlebotomist giuliana Cough Take 1 Tablet by mouth [...] Additional Information Patient taking differently:75 mcg Oral [id number], AT LEAST 30 MINUTES PRIOR TO BREAKFAST OR OTHER MEDS,Indications: Hypothyroidism, Reported on 05/26/2023 Azelastine HCl 0.1 % Nasal Solution (Astelin) Administer 2 Sprays into nostril in the morning and 2 Sprays before bedtime. 90 mL 3 3 Active Additional Information Patient taking differently:2 [place] NasalBID PRN, Rhinitis, Indications: Allergic Rhinitis, Reported [...] 3 Active Additional Information Patient taking differently:2 [place] Each Nostril Daily(AM),Indications: Allergic Rhinitis, Reported on [...] Additional Information Patient not taking.Reported on 11/22/2023 predniSONE 2.5 MG Oral Tablet (Deltasone) Take 1 Tablet by mouth in the morning. 30 Tablet 3 4 01/20/20 24 Active LORazepam 1 MG Oral Tablet (Ativan)Indications: [...] THE MORNING 30 Tablet 6 4 Active Hospital, Clinic, or Other Facility Administered Medication Ordered Dose Route Frequency Start Date End Date Status Denosumab (Prolia) subcut inj 60 mgIndications:Senile osteoporosis 60 mg SC [id number] 03/04/2023 02/27/2024 Active documented as of this encounter (statuses as of 12/13/2023) Active Problems Problem Noted Date Diagnosed Date [...] as of this encounter (statuses as of 12/13/2023) Resolved Problems Problem Noted Date Diagnosed Date [...] as of this encounter (statuses as of 12/13/2023) Immunizations Name Administration Dates Next Due COVID-19 [...] of this encounter Progress Notes * Pancho Perez, [facility] - 12/13/2023 10:01 AM EDT Patient Phone Numbers [facility] - Hypertension Management This patient was contacted as part of the [facility] Nephrology 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 Blood Pressure Goal: 130/80 mmHg Type of Alert: Yellow Current Hypertension Medications: Metoprolol ER 12.5mg QAM Lisinopril/HCTZ 20/12.5mg Take 2 tabs QAM (Max dose of lisinopril, some room on HCTZ) Aldactone 25mg QAM Previous antihypertensive use: Lostartan Experiencing symptoms related to elevated BP: No Systolic Diastolic HR 144 69 71 145 60 67 138 65 61 114 65 63 127 64 64 134 56 66 134 58 67 Systolic Diastolic HR Average 134 62 66 Hi 145 69 71 Lo 114 56 61 Range 31 13 10 BP Readings from Last 3 Encounters: 11/22/23 116/54 10/04/23 118/72 09/22/23 128/60 Pulse Readings from Last 3 Encounters: 11/22/23 71 10/04/23 79 08/24/23 78 Recent Labs Units 08/24/23 1141 07/05/23 0910 02/04/23 1016 SODIUM - [facility] mmol/L 142 139 141 POTASSIUM - [facility] mmol/L 4.5 4.5 4.6 CHLORIDE - [facility] mmol/L 105 101 105 CO2 - [facility] mmol/L 22 23 25 CREATININE - [facility] mg/dL 1.3* 1.4* 1.2* BUN - [facility] mg/dL 26* 29* 25* ASSESSMENT & PLAN: Pt reports extreme stress this week as her has been hospitalized. No changes to HTN regimenat this time. MEDICATION CHANGES: none Hypertension Medications: Metoprolol ER 12.5mg QAM Lisinopril/HCTZ 20/12.5mg Take 2 tabs QAM (Max dose of lisinopril, some room on HCTZ) Aldactone 25mg QAM HEALTH MAINTENANCE INTERVENTIONS: Labs: Ordered & Scheduled: Up to date FOLLOW UP: PRN Pancho Perez RPh Clinical Pharmacist - Curling Machine Operator [facility] 12/13/2023, 10:39 AM * Lucie Cade LPN - 12/13/2023 9:33 AM EDT Horacio Yeung [phone] Horacio Yeung is currently participating in the [facility] Hypertension Management Program and had a reading on 12/12/23 of 145/60. Pt has alerted for an Average BP [...] Description 12/28/2023 11:40 AM EDT Immunization Ancillary [facility] [place] [address] [place] [address] Sp, Flu Shot Clinic [address] [place] [address] 01/03/2024 10:30 AM EDT [facility] [place] [address] [place] [address] Pharmacist2, [facility] [address] [place] [address] 02/22/2024 11:15 AM EST Office Visit Dermatology [facility] [place] [address] [place] [address] Phil Perez MD 200 [facility] [place] [address] 03/09/2024 11:20 AM EST Office Visit General Internal Medicine [facility] [address] [facility] [place] [address] Phil Maldonado MD [address] [facility] [place] [address] 04/03/2024 12:40 PM EST Office Visit Pulmonary Medicine, [facility] [address] [facility] [place] [address] Stanley Chavez MD [address] [place] [facility] [place] [address] 04/07/2024 11:30 AM EST Office Visit Nephrology, [facility] [address] [facility] [place] [address] Gena Walton PA-C 200 [facility] [place], [place] [address] Health Maintenance Due Date Last Done Comments Adult Wellness Visit 01/21/2022 01/21/2021 Depression Screening 07/22/2023 07/21/2022 COVID-19 Vaccine ( season) 2023 01/27/2023, 03/18/2022, 01/23/2021, Additional history exists Influenza Vaccine (FLU shot) (#1) 2023 01/05/2023, 01/16/2022, 12/27/2020, Additional history exists GFR 02/24/2024 08/24/2023, 04/0 10/2023, 02/04/2023, Additional history exists CKD HGB USE SMARTSET 51030 07/04/202407/04, 07/05/2023, 02/04/2023, Additional history exists CKD PHOS USE SMARTSET 07797 08/10/202407/27, 08/25/2022, 06/26/2021, Additional history exists TSH 08/10/2024 08/11/2023, 04/0 10/2023, 02/04/2023, Additional history exists Albumin/Creatinine Ratio 08/11/20242 024, 08/26/2022, 06/30/2021, Additional history exists DXA Scan 10/04/2025 10/05/2023, 11/2023, 09/30/2021, Additional history exists DTap/Tdap Vaccines (3 - Td or Tdap) 11/30/2033 12/01/2023, 09/07/2013, 02/17/2010, Additional history exists Zoster Vaccines Discontinued 02/10/2007 Pneumococcal Vaccine: 65+ Years Completed 07/20/2014, 01/30/2008, 10/16/1994 VITAMIN D LEVEL ONCE IN A LIFETIME-USE SMARTSET# 42244 Completed 08/24/2023, 04/01/2023, 11/13/2022, Additional history exists HPV (Gardasil) Vaccine Aged Out No lo nger eligible based on patient's age to complete this topic MENINGOCOCCAL (MENACTRA/MENVEO) Aged Out No longer eligible based on patient's age to complete this topic documented as of this encounter Medical Devices Implanted Type Area Inspector Plating Device Identifier Shelf Expiration Date Model / Serial / Lot Lens Intraoc 22.0 - [id number] - [id number] Implanted:Qty: 1 on 07/01/2021 by Gee Hagen MD at OR [facility] Right: Eye BAUSCH & LOMB 02/25/2026 [id number] / [id number] Lens Intraoc 19.5 - [id number] - [id number] Implanted:Qty: 1 on 07/15/2021 by Gee Hagen MD at OR [facility] Left: Eye BAUSCH & LOMB 02/25/2026 [id number] / [id number] / documented as of this encounter Visit Diagnoses Diagnosis HTN, goal below 130/80- Primary Unspecified essential hypertension documented in this encounter Care Teams Graining Press Operator Relationship Specialty Start Date End Date Phil Maldonado MD [address] [place] [address] PCP - General Internal Medicine 06/19/19 documented as of this encounter
--- OUTSIDE RECORDS SUMMARY | 2024-01-02 15:34 | External Medical Summary | Summary of Care ---
Author Name Unknown Organization [facility] Address [address] [place] [address] Phone [phone] Care Team Providers Care Decorative Greens Cutter Name Role Phone Phil Maldonado MD Primary Care Provider + Reason for Visit * Reason Comments eRx-Medication Refill Encounter Details Date Type Department Care Team (Late st Contact Info) Description 11/23/2023 Refill Nephrology, [facility] [address] [place] [address] Saúl Springer MD [address] [place] [address] Allergies Active Allergy Reactions Criticality Noted Date Comments Azithromycin Anaphylaxis High 08/11/2023 Sulfa Antibiotics Hives 10/29/1998 documented as of this encounter (statuses as of 11/23/2023) Medications Medication Sig Dispensed Refills Start Date [...] skin every 6 months. 1 Each 02/06/20 20 Active Acetaminophen 500 MG Oral Tablet (Tylenol)Indication s:Neck pain,Chronic right shoulder pain Take 2 Tablets by mouth every 12 hours as needed for Pain, Mild. 100 Tab 10/05/19 21 Active Dicyclomine HCl 10 MG Oral Capsule [...] 8 ounces of water or juice. 04/20/19 23 Active Albuterol Sulfate (2.5 MG/3ML) 0.083% Inhalation Nebulization Solution (Proventil)Indicati ons:Moderate persistent asthma without complication Inhale 1 Vial via nebulizer every 6 hours as needed for Wheezing. 360 mL 11 05/07/19 23 Active Additional Information Patient taking differently:1 Vial Nebulizer Q6H PRN, Wheezing,Indications: Asthma, Reported on 05/26/2023 Vitamin D3 25 MCG (1000 UT) Oral CapsuleIndications: Nutritional Support 05/12/19 23 Active Famotidine 20 MG Oral Tablet (Pepcid) Take 1 Tablet by mouth at bedtime. 30 Tablet 2 08/29/19 23 Active Additional Information Patient taking differently:20 mg OralHS PRN, Heartburn, Indications: Heartburn, Reported on 05/26/2023 Warfarin Sodium 2.5 MG Oral Tablet (Coumadin)Indicatio ns:takes in the evening Take 1 tablet daily Or as directed by coag clinic 90 Tablet 3 09/29/19 23 Active Additional Information Patient taking differently:, Take [...] chew 40 Tablet 2 12/04/19 23 Active Levothyroxine Sodium 75 MCG Oral Tablet (Levoxyl)Indication s:Hypothyroidism due to acquired atrophy of thyroid Take 1 Tablet by mouth daily first thing in the morning. AT LEAST 30 MINUTES PRIOR TO BREAKFAST OR OTHER MEDS 90 Tablet 3 12/24/19 23 Active Additional Information Patient taking differently:75 mcg Oral [id number], AT LEAST 30 MINUTES PRIOR TO BREAKFAST OR OTHER MEDS,Indications: Hypothyroidism, Reported on 05/26/2023 Azelastine HCl 0.1 % Nasal Solution (Astelin) Administer 2 Sprays into nostril in the morning and 2 Sprays before bedtime. 90 mL 3 01/15/20 23 Active Additional Information Patient taking differently:2 [place] NasalBID PRN, Rhinitis, Indications: Allergic Rhinitis, Reported on 05/26/2023 Pravastatin Sodium 10 MG Oral Tablet (Pravachol)Indicati ons:Dyslipidemia TAKE 1 TABLET BY MOUTH AT BEDTIME 90 Tablet 3 01/22/20 23 Active Additional Information Patient taking differently: Indications: Hyperlipidemia, Reported on 05/26/2023 Fluticasone Propionate 50 MCG/ACT Nasal Suspension (Flonase) Administer 2 Sprays into each nostril in the morning. 16 g 2 02/10/20 23 Active Additional Information Patient taking differently:2 [place] Each Nostril Daily(AM),Indications: Allergic Rhinitis, Reported on 05/26/2023 Omeprazole 40 MG Oral Capsule Delayed Release (PriLOSEC)Indicatio ns:Heartburn Take 1 Capsule by mouth daily as needed for Heartburn. 01/21/20 Active Levocetirizine Dihydrochloride 5 MG Oral Tablet TAKE 1/2 TABLET BY MOUTH EVERY OTHER DAY 15 Tablet 5 03/17/20 Active Additional Information Patient taking differently:, TAKE 1/2 TABLET BY MOUTH EVERY OTHER DAY,Indications: Allergic Rhinitis, Reported on 05/26/2023 Lisinopril-hydroCHL OROthiazide 20-12.5 MG Oral TabletIndications:H ypertension Take 2 Tablets by mouth in the morning. 180 Tablet 1 07/09/19 24 Active PARoxetine HCl 30 MG Oral Tablet [...] mouth in the morning. 30 Tablet 3 09/22/19 24 024 Active LORazepam 1 MG Oral Tablet (Ativan)Indications :ETTA [...] MORNING 30 Tablet 6 11/23/19 24 Active Spironolactone 25 MG Oral Tablet (Aldactone) TAKE 1 TABLET BY MOUTH ONCE DAILY IN THE MORNING 30 Tablet 6 03/25/20 23 024 Discontinued Hospital, Clinic, or Other Facility Administered Medication Ordered Dose Route Frequency Start Date End Date Status Denosumab (Prolia) subcut inj 60 mgIndications:Senile osteoporosis 60 mg SC [id number] 03/04/2023 02/27/2024 Active documented as of this encounter (statuses as of 11/23/2023) Active Problems Problem Noted Date Diagnosed Date [...] as of this encounter (statuses as of 11/23/2023) Resolved Problems Problem Noted Date Diagnosed Date [...] as of this encounter (statuses as of 11/23/2023) Immunizations Name Administration Dates Next Due COVID-19 [...] encounter Miscellaneous Notes * Telephone Encounter - Saúl Springer MD - 11/23/2023 1:30 PM EDTSigned Prescriptions: Disp Refills Spironolactone 25 MG Oral Tablet (Aldacton*30 Tab*6 Sig: TAKE 1 TABLET BY MOUTH ONCE DAILY IN THE MORNING Authorizing Provider: SAÚL SPRINGER * Telephone Encounter - Sandra Camilo RN - 11/23/2023 10:06 AM EDTPending Prescriptions: Disp Refills Spironolactone 25 MG Oral Tablet (Aldacton*30 Tab*6 Sig: TAKE 1 TABLET BY MOUTH ONCE DAILY IN THE MORNING * Telephone Encounter - Sandra Camilo RN - 11/23/2023 10:05 AM EDT Prescription request received from pharmacy pending. Please authorize. Last OV 08/24/23 Next OV 04/07/24 documented in this encounter Plan of Treatment Upcoming Encounters Date Type Department Care Team (Late st Contact Info) Description 01/03/2024 10:30 AM EDT Anticoagulation Pharmacy, [facility] [place] [address] [place] [address] Pharmacist2, [facility] [address] [place], [place] [address] 02/22/2024 11:15 AM EST Office Visit Dermatology [facility] [address] [facility] [place] [address] Phil Perez MD [address] [facility] [place] [address] 03/09/2024 11:20 AM EST Office Visit General Internal Medicine [facility] [address] [facility] [place] [address] Phil Maldonado MD [address] [facility] [place] [address] 04/03/2024 12:40 PM EST Office Visit Pulmonary Medicine, [facility] [address] [facility] [place] [address] Stanley Chavez MD [address] [place] [facility] [place] [address] 04/07/2024 11:30 AM EST Office Visit Nephrology, [facility] [address] [facility] [place] [address] ZeGena hoffman PA-C [address] [facility] [place] [address] Health Maintenance Due Date Last Done Comments Adult Wellness Visit 01/21/2022 01/21/2021 COVID-19 Vaccine ( season) 2023 01/27/2023, 03/18/2022, 01/23/2021, Additional history exists Depression Screening 07/22/2023 07/21/2022 DTap/Tdap Vaccines (2 - Td or Tdap) 09/08/2023 09/07/2013, 02/17/2010, 10/18/2001, Additional history exists Influenza Vaccine (FLU shot) (#1) 2023 01/05/2023, 01/16/2022, 12/27/2020, Additional history exists GFR 02/24/2024 08/24/2023, 04/0 10/2023, 02/04/2023, Additional history exists CKD HGB USE SMARTSET 81859 07/04/202407/04, 07/05/2023, 02/04/2023, Additional history exists CKD PHOS USE SMARTSET 43648 08/10/2024 0507/2023, 08/25/2022, 06/26/2021, Additional history exists TSH 08/10/2024 08/11/2023, 0 10/2023, 02/04/2023, Additional history exists Albumin/Creatinine Ratio 08/11/2024 024, 08/26/2022, 06/30/2021, Additional history exists DXA Scan 10/04/2025 10/05/2023, 11/2023, 09/30/2021, Additional history exists Zoster Vaccines Discontinued 02/10/2007 Pneumococcal Vaccine: 65+ Years Completed 07/20/2014, 01/30/2008, 10/16/1994 VITAMIN D LEVEL ONCE IN A LIFETIME-USE SMARTSET# 77591 Completed 08/24/2023, 04/01/2023, 11/13/2022, Additional history exists HPV (Gardasil) Vaccine Aged Out No lo nger eligible based on patient's age to complete this topic MENINGOCOCCAL (MENACTRA/MENVEO) Aged Out No longer eligible based on patient's age to complete this topic documented as of this encounter Medical Devices Implanted Type Area Concrete Building Assembler Device Identifier Shelf Expiration Date Model / Serial / Lot Lens Intraoc 22.0 - [id number] - [id number] Implanted:Qty: 1 on 07/01/2021 by Gee Hagen MD at OR [facility] Right: Eye BAUSCH & LOMB 02/25/2026 [id number] / [id number] / [id number] Lens Intraoc 19.5 - [id number] - [id number] Implanted:Qty: 1 on 07/15/2021 by Gee Hagen MD at OR [facility] Left: Eye BAUSCH & LOMB 02/25/2026 [id number] / [id number] / documented as of this encounter Care Teams Decorative Greens Cutter Relationship Specialty Start Date End Date Phil Maldonado MD [address] [place] [address] PCP - General Internal Medicine 06/19/19 documented as of this encounter
--- OUTSIDE RECORDS SUMMARY | 2024-01-02 15:34 | External Medical Summary | Summary of Care ---
Author Name Unknown Organization [facility] Address [address] [place] [address] Phone [phone] Care Team Providers Care Ironworker Name Role Phone Phli Maldonado MD Primary Care Provider + Reason for Visit * Reason Onset Date Comments Immunizations 12/01/2023 Encounter Details Date Type Department Care Team (Late st Contact Info) Description 12/01/2023 11:00 AM EDT Nurse Only Ancillary [facility] 200 [facility] [place] [address] Nurse, Int Med [address] [place] [address] Immunizations Allergies Active Allergy Reactions Criticality Noted Date Comments Azithromycin Anaphylaxis High 08/11/2023 Sulfa Antibiotics Hives 10/29/1998 documented as of this encounter (statuses as of 12/01/2023) Medications Medication Sig Dispensed Refills Start Date [...] 30-600 MG Oral Tablet Extended Release 12 HourIndications:Director Of Physical 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 90 mL 3 3 Active Additional Information Patient taking differently:2 [place] NasalBID PRN, Rhinitis, Indications: Allergic Rhinitis, Reported on 05/26/2023 Pravastatin Sodium 10 MG Oral Tablet (Pravachol)Roberttio ns:Dyslipidemia TAKE 1 TABLET BY MOUTH AT BEDTIME 90 Tablet 3 3 Active Additional Information Patient taking differently: Indications: Hyperlipidemia, Reported on 05/26/2023 Fluticasone Propionate 50 MCG/ACT Nasal Suspension (Flonase) Administer 2 Sprays into each nostril in the morning. 16 g 2 3 Active Additional Information Patient taking differently:2 [place] Each Nostril Daily(AM),Indications: Allergic Rhinitis, Reported on [...] Active Montelukast Sodium 10 MG Oral Tablet (Singulair)Roberttio ns:Asthma TAKE 1 TABLET BY MOUTH AT [...] inj 60 mgIndications:Senile osteoporosis 60 mg SC [id number] 03/04/2023 02/27/2024 Active documented as of this encounter (statuses as of 12/01/2023) Active Problems Problem Noted Date Diagnosed Date [...] as of this encounter (statuses as of 12/01/2023) Resolved Problems Problem Noted Date Diagnosed Date [...] as of this encounter (statuses as of 12/01/2023) Immunizations Name Administration Dates Next Due COVID-19 [...] on file documented as of this encounter Patient Instructions * Patient Instructions* Karlee Lam LPN - 12/01/2023 10:49 AM EDT ~~PATIENT INSTRUCTIONS FOR TDAP VACCINE~~ Possible side effects of TDAP vaccine, (tetanus shot), are usually mild and can include: 1. Soreness or redness at injection site 2. Low grade fever 3. Body aches You may use a fever / pain reducing medication as needed for these symptoms. LET YOUR DOCTOR KNOW IMMEDIATELY IF YOU HAVE DIFFICULTY BREATHING OR SWALLOWING, EXPERIENCE ITCHINGOF FEET OR HANDS, HAVE SWELLING OF EYES, FACE OR INSIDE OF NOSE. documented in this encounter Progress Notes * Karlee Lam LPN - 12/01/2023 10:48 AM EDT Immunization Administration Documentation Time Out Procedure Performed: Yes Patient Identified (Ask Name/Date of ): Yes Does the patient have a fever greater than 101 degrees today? No Patient allergic to latex? No VFC Stock: No Immunization(s) verified: Yes, Immunization Name: Tdap (Adacel), VIS Sheet(s) given: Yes Verified Side and Site: Yes Verified Shot(s) with Parent(s)/Patient: Yes documented in this encounter Plan of Treatment Upcoming Encounters Date Type Department Care Team (Late st Contact Info) Description 12/28/2023 11:40 AM EDT Immunization Ancillary [facility] [place] [address] [place] [address] Sp, Flu Shot Clinic [address] [place] [address] 01/03/2024 10:30 AM EDT Anticoagulation Pharmacy, [employer] [address] [place] [address] Pharmacist2, [facility] [address] [place] [address] [address] 02/22/2024 11:15 AM EST Office Visit Dermatology [facility] [address] [facility] [place] [address] Phil Perez MD [address] [facility] [place], [place] [address] 03/09/2024 11:20 AM EST Office Visit General Internal Medicine [facility] [address] [facility] [place], [place] [address] Phil Maldonado MD [address] [facility] [place] [address] 04/03/2024 12:40 PM EST Office Visit Pulmonary Medicine, [facility] [address] [facility] [place] [id number] Stanley Chavez MD [address] [facility] [place] [address] 04/07/2024 11:30 AM EST Office Visit Nephrology, [facility] [address] [facility] [place], [place] [address] Gena Walton PA-C [address] [facility] [place], [place] [address] Health Maintenance Due Date Last Done Comments Adult Wellness Visit 01/21/2022 01/21/2021 Depression Screening 07/22/2023 07/21/2022 COVID-19 Vaccine ( season) 2023 01/27/2023, 03/18/2022, 01/23/2021, Additional history exists Influenza Vaccine (FLU shot) (#1) 2023 01/05/2023, 01/16/2022, 12/27/2020, Additional history exists GFR 02/24/2024 08/24/2023, 04/0 10/2023, 02/04/2023, Additional history exists CKD HGB USE SMARTSET 43230 07/04/202407/04, 07/05/2023, 02/04/2023, Additional history exists CKD PHOS USE SMARTSET 76588 08/10/2024 0507/2023, 08/25/2022, 06/26/2021, Additional history exists [...] D LEVEL ONCE IN A LIFETIME-USE SMARTSET# 03418 Completed 08/24/2023, 04/01/2023, 11/13/2022, Additional history exists HPV (Gardasil) Vaccine Aged Out No lo nger eligible based on patient's age to complete this topic MENINGOCOCCAL (MENACTRA/MENVEO) Aged Out No longer eligible based on patient's age to complete this topic documented as of this encounter Medical Devices Implanted Type Area Engineering Professionals Device Identifier Shelf Expiration Date Model / Serial / Lot Lens Intraoc 22.0 - [id number] - [id number] Implanted:Qty: 1 on 07/01/2021 by Gee Hagen MD at OR [facility] Right: Eye BAUSCH & LOMB 02/25/2026 [id number] / [id number] / [id number] Lens Intraoc 19.5 - [id number] - [id number] Implanted:Qty: 1 on 07/15/2021 by Gee Hagen MD at OR [facility] Left: Eye BAUSCH & LOMB 02/25/2026 [id number] / [id number] / documented as of this encounter Visit Diagnoses Diagnosis Need for pdgsfxopow-lxqbink-ijjuhnpqk (Tdap) vaccine- Primary Need for prophylactic vaccination with combined itmsemekwe-igrvnrt-yyygxeqsm (DTP) vaccine documented in this encounter Care Teams Ironworker Relationship Specialty Start Date End Date Phil Maldonado MD [address] [place] [address] PCP - General Internal Medicine 06/19/19 documented as of this encounter
--- OUTSIDE RECORDS SUMMARY | 2024-01-02 15:34 | External Medical Summary | Summary of Care ---
Author Name Unknown Organization [facility] Address [address] [place] [address] Phone [phone] Care Team Providers Care Operating Theatre Technician Name Role Phone Phil Maldonado MD Primary Care Provider + Reason for Visit * Reason Onset Date Comments Encounter Created in Error 12/01/2023 Encounter Details Date Type Department Care Team (Late st Contact Info) Description 12/01/2023 Telephone General Internal Medicine [facility] [address] [place] [address] Phil Maldonado MD 200 [place] [address] Encounter Created in Error Allergies Active Allergy Reactions Criticality Noted Date [...] 30-600 MG Oral Tablet Extended Release 12 HourIndications:Medical Receptionist Assistant giuliana Cough Take 1 Tablet by mouth [...] Additional Information Patient taking differently:75 mcg Oral [id number], AT LEAST 30 MINUTES PRIOR TO BREAKFAST OR OTHER MEDS,Indications: Hypothyroidism, Reported on 05/26/2023 Azelastine HCl 0.1 % Nasal Solution (Astelin) Administer 2 Sprays into nostril in the morning and 2 Sprays before bedtime. 90 mL 3 3 Active Additional Information Patient taking differently:2 [place] NasalBID PRN, Rhinitis, Indications: Allergic Rhinitis, Reported [...] 3 Active Additional Information Patient taking differently:2 [place] Each Nostril Daily(AM),Indications: Allergic Rhinitis, Reported on [...] inj 60 mgIndications:Senile osteoporosis 60 mg SC [id number] 03/04/2023 02/27/2024 Active documented as of this [...] 12/01/2023 11:00 AM EDT Nurse Only Ancillary [facility] [place] [address] [place] [address] Nurse, Int Med 200 [facility] [place] [place] [address] Arrived 12/28/2023 11:40 AM EDT Immunization Ancillary [facility] [place] 200 [facility] [place] [address] Sp, Flu Shot Clinic 200 [facility] [place] [address] 01/03/2024 10:30 AM EDT Anticoagulation Pharmacy, [facility] [place] [address] [place] [address] Pharmacist2, [facility] [address] [facility] [place] [address] 02/22/2024 11:15 AM EST Office Visit Dermatology [facility] [address] [place] [address] Phil Perez MD [address] [facility] [place], [place] [address] 03/09/2024 11:20 AM EST Office Visit General Internal Medicine [facility] [address] [place], [place] [address] Phil Maldonado MD [address] [facility] [place], [place] [address] 04/03/2024 12:40 PM EST Office Visit Pulmonary Medicine, [facility] [address] [facility] [place] [phone] Stanley Chavez MD [address] [place] [address] 04/07/2024 11:30 AM EST Office Visit Nephrology, [facility] 200 [facility] [place] [address] Gena Walton PA-C [address] [facility] [place], [place] [address] Health Maintenance Due Date Last Done Comments Adult Wellness Visit 01/21/2022 01/21/2021 Depression Screening 07/22/2023 07/21/2022 DTap/Tdap Vaccines (2 - Td or Tdap) 09/08/2023 09/07/2013, 02/17/2010, 10/18/2001, Additional history exists COVID-19 Vaccine (2022- season) 2023 01/27/2023, 03/18/2022, 01/23/2021, Additional history exists Influenza Vaccine (FLU shot) (#1) 2023 01/05/2023, 01/16/2022, 12/27/2020, Additional history exists GFR 02/24/2024 08/24/2023, 04/0 10/2023, 02/04/2023, Additional history exists CKD HGB USE SMARTSET 52099 07/04/202407/04, 07/05/2023, 02/04/2023, Additional history exists CKD PHOS USE SMARTSET 55626 08/10/202407/27, 08/25/2022, 06/26/2021, Additional history exists TSH 08/10/2024 08/11/2023, 04/0 10/2023, 02/04/2023, Additional history exists Albumin/Creatinine Ratio 08/11/20242 024, 08/26/2022, 06/30/2021, Additional history exists DXA Scan 10/04/2025 10/05/2023, 07/0 11/2023, 09/30/2021, Additional history exists Zoster Vaccines Discontinued 02/10/2007 Pneumococcal Vaccine: 65+ Years Completed 07/20/2014, 01/30/2008, 10/16/1994 VITAMIN D LEVEL ONCE IN A LIFETIME-USE SMARTSET# [id number] Completed 08/24/2023, 04/01/2023, 11/13/2022, Additional history exists HPV (Gardasil) Vaccine Aged Out No lo nger eligible based on patient's age to complete this topic MENINGOCOCCAL (MENACTRA/MENVEO) Aged Out No longer eligible based on patient's age to complete this topic documented as of this encounter Medical Devices Implanted Type Area Sustainability Coordinator Device Identifier Shelf Expiration Date Model / Serial / Lot Lens Intraoc 22.0 - [id number] - [id number] Implanted:Qty: 1 on 07/01/2021 by Gee Hagen MD at OR [facility] Right: Eye [employer] LOMB 02/25/2026 [id number] / [id number] Lens Intraoc 19.5 - [id number] - [id number] Implanted:Qty: 1 on 07/15/2021 by Gee Hagen MD at OR [facility] Left: Eye BAUSCH [employer] LOMB 02/25/2026 [id number] / [id number] / documented as of this encounter Care Teams Operating Theatre Technician Relationship Specialty Start Date End Date Phil Maldonado MD 200 [place] [address] PCP - General Internal Medicine 06/19/19 documented as of this encounter
--- OUTSIDE RECORDS SUMMARY | 2024-01-02 15:34 | External Medical Summary | Summary of Care ---
Author Name Unknown Organization [facility] Address [address] [place] [address] Phone [phone] Care Team Providers Care Ventilator Specialist Name Role Phone Phil Maldonado MD Primary Care Provider + Reason for Visit * Reason Onset Date Comments Medication Refill 11/18/2023 Michel valencia 100-62.5-25 Encounter Details Date Type Department Care Team (Late st Contact Info) Description 11/18/2023 Refill Pulmonary Medicine Mitul Hernandez [address] [place] [phone] Stanley Martin MD [address] [facility] [place], [place] [id number] Allergies Active Allergy Reactions Criticality Noted Date Comments Azithromycin Anaphylaxis High 08/11/2023 Sulfa Antibiotics Hives 10/29/1998 documented as of this encounter (statuses as of 11/18/2023) Medications Medication Sig Dispensed Refills Start Date [...] Additional Information Patient taking differently:75 mcg Oral [id number], AT LEAST 30 MINUTES PRIOR TO BREAKFAST OR OTHER MEDS,Indications: Hypothyroidism, Reported on 05/26/2023 Azelastine HCl 0.1 % Nasal Solution (Astelin) Administer 2 Sprays into nostril in the morning and 2 Sprays before bedtime. 90 mL 3 3 Active Additional Information Patient taking differently:2 [place] NasalBID PRN, Rhinitis, Indications: Allergic Rhinitis, Reported [...] 3 Active Additional Information Patient taking differently:2 [place] Each Nostril Daily(AM),Indications: Allergic Rhinitis, Reported on [...] IN THE MORNING,Indications: Hypertension, Reported on 05/26/2023 Lisinopril-hydroCHL OROthiazide 20-12.5 MG [...] 24 Active LORazepam 1 MG Oral Tablet (Ativan)Indications [...] morning. 60 Blister Dosing Unit 4 Active Trelegy Ellipta 100-62.5-25 MCG/ACT Aerosol Powder Breath Activated (Fluticasone-Umecli dinium-Vilanterol) Inhale 1 Puff by mouth in the morning. 60 Blister Dosing Unit 4 11/18/19 24 Discontinu ed(Refill) Hospital, Clinic, or Other Facility Administered Medication Ordered Dose Route Frequency Start Date End Date Status Denosumab (Prolia) subcut inj 60 mgIndications:Senile osteoporosis 60 mg SC [id number] 03/04/2023 02/27/2024 Active documented as of this encounter (statuses as of 11/18/2023) Active Problems Problem Noted Date Diagnosed Date [...] as of this encounter (statuses as of 11/18/2023) Resolved Problems Problem Noted Date Diagnosed Date [...] as of this encounter (statuses as of 11/18/2023) Immunizations Name Administration Dates Next Due COVID-19 [...] Telephone Encounter - Stanley Martin MD - 11/18/2023 2:46 PM EDT Signed Prescriptions: Disp Refills Trelegy Ellipta 100-62.5-25 MCG/ACT Aeroso*60 Bli*0 Sig: Inhale 1 Puff by mouth in the morning.Authorizing Provider: STANLEY MARTIN documented in this encounter Plan of Treatment Upcoming Encounters Date Type Department Care Team (Late st Contact Info) Description 11/22/2023 10:40 AM EDT Anticoagulation Pharmacy, [facility] [address] [place] [address] Pharmacist2, [facility] [address] [place], [place] [address] 11/22/2023 12:00 PM EDT Office Visit Pulmonary Medicine, [facility] 132 [facility] [place] [address] Stanley Martin MD [address] [facility] [place] [address] 02/22/2024 11:15 AM EST Office Visit Dermatology [facility] [address] [place] [address] Phil Perez MD 200 [facility] [place] [address] 03/09/2024 11:20 AM EST Office Visit General Internal Medicine [facility] 200 [facility] [place] [address] Phil Maldonado MD 200 [facility] [place] [address] 04/07/2024 11:30 AM EST Office Visit Nephrology, [facility] 200 [facility] [place], [place] [address] Gena Walton PA-C 200 [facility], [place] [address] 04/11/2024 1:00 PM EST Office Visit Rheumatology [place] [address] [employer] [place], [place] [address] Tristan Richards MD [facility] [address] [place], [place] [address] Health Maintenance Due Date Last Done Comments Adult Wellness Visit 01/21/2022 01/21/2021 COVID-19 Vaccine ( season) 2023 01/27/2023, 03/18/2022, 01/23/2021, Additional history exists Depression Screening 07/22/2023 07/21/2022 DTaP,Tdap,and Td Vaccines (2 - Td or Tdap) 09/08/2023 09/07/2013, 02/17/2010, 10/18/2001, Additional history exists Influenza Vaccine (FLU shot) (#1) 2023 01/05/2023, 01/16/2022, 12/27/2020, Additional history exists GFR 02/24/2024 08/24/2023, 040 10/2023, 02/04/2023, Additional history exists CKD HGB USE SMARTSET 13911 07/04/202407/04, 07/05/2023, 02/04/2023, Additional history exists CKD PHOS USE SMARTSET 21351 08/10/202407/27, 08/25/2022, 06/26/2021, Additional history exists TSH 08/10/2024 08/11/2023, 10/2023, 02/04/2023, Additional history exists Albumin/Creatinine Ratio 08/11/2024 024, 08/26/2022, 06/30/2021, Additional history exists DXA Scan 10/04/2025 10/05/2023, 11/2023, 09/30/2021, Additional history exists Zoster Vaccines Discontinued 02/10/2007 Pneumococcal Vaccine: 65+ Years Completed 07/20/2014, 01/30/2008, 10/16/1994 VITAMIN D LEVEL ONCE IN A LIFETIME-USE SMARTSET# [id number] Completed 08/24/2023, 04/01/2023, 11/13/2022, Additional history exists HPV (Gardasil) Vaccine Aged Out No lo nger eligible based on patient's age to complete this topic MENINGOCOCCAL (MENACTRA/MENVEO) Aged Out No longer eligible based on patient's age to complete this topic documented as of this encounter Medical Devices Implanted Type Area Senior Benefits Analyst Device Identifier Shelf Expiration Date Model / Serial / Lot Lens Intraoc 22.0 - [id number] - [id number] Implanted:Qty: 1 on 07/01/2021 by Gee Hagen MD at OR [facility] Right: Eye [employer]USCH [employer] LOMB 02/25/2026 [id number] / [id number] / [id number] Lens Intraoc 19.5 - [id number] - [id number] Implanted:Qty: 1 on 07/15/2021 by Gee Hagen MD at OR [facility] Left: Eye BAUSCH & LOMB 02/25/2026 [id number] / [id number] / documented as of this encounter Care Teams Ventilator Specialist Relationship Specialty Start Date End Date Phil Maldonado MD 200 [facility] [place] [address] PCP - General Internal Medicine 06/19/19 documented as of this encounter
--- OUTSIDE RECORDS SUMMARY | 2024-01-02 15:34 | External Medical Summary | Summary of Care ---
Author Name Unknown Organization [facility] Address [address] [place] [address] Phone [phone] Care Team Providers Care Hims Manager Name Role Phone Phil Maldonado MD Primary Care Provider + Reason for Visit * Reason Comments eRx-Medication Refill Encounter Details Date Type Department Care Team (Late st Contact Info) Description 11/17/2023 Refill Pulmonary Medicine, [facility] 132 [facility] [place] [address] Bryant Mohamud MD [address] [facility] [place] [phone] Moderate persistent asthma without complication Allergies Active Allergy Reactions Criticality Noted Date Comments Azithromycin Anaphylaxis High 08/11/2023 Sulfa Antibiotics Hives 10/29/1998 documented as of this encounter (statuses as of 11/17/2023) Medications Medication Sig Dispensed Refills Start Date [...] Additional Information Patient taking differently:75 mcg Oral [id number], AT LEAST 30 MINUTES PRIOR TO BREAKFAST OR OTHER MEDS,Indications: Hypothyroidism, Reported on 05/26/2023 Azelastine HCl 0.1 % Nasal Solution (Astelin) Administer 2 Sprays into nostril in the morning and 2 Sprays before bedtime. 90 mL 3 01/15/20 23 Active Additional Information Patient taking differently:2 [place] NasalBID PRN, Rhinitis, Indications: Allergic Rhinitis, Reported [...] 23 Active Additional Information Patient taking differently:2 [place] Each Nostril Daily(AM),Indications: Allergic Rhinitis, Reported on [...] THE MORNING 30 Tablet 6 03/25/20 23 Active Additional Information Patient taking differently:, [...] package directions 21 Tablet 09/13/19 24 Active predniSONE 2.5 MG Oral Tablet (Deltasone) Take 1 Tablet by mouth in the morning. 30 Tablet 3 09/22/19 24 024 Active Trelegy Ellipta 100-62.5-25 MCG/ACT Aerosol Powder Breath Activated (Fluticasone-Umecli dinium-Vilanterol) Inhale 1 Puff by mouth in the morning. 60 Blister Dosing Unit 10/18/19 24 Active LORazepam 1 MG Oral Tablet [...] Breath. 18 g 5 11/17/19 24 Active Albuterol Sulfate HFA 108 (90 Base) MCG/ACT Inhalation Aerosol SolutionIndications :Moderate persistent asthma without complication Inhale 2 Puffs by mouth every 6 hours as needed for Shortness of Breath. 18 g 5 12/17/19 23 024 Discontinued Hospital, Clinic, or Other Facility Administered Medication Ordered Dose Route Frequency Start Date End Date Status Denosumab (Prolia) subcut inj 60 mgIndications:Senile osteoporosis 60 mg SC [id number] 03/04/2023 02/27/2024 Active documented as of this encounter (statuses as of 11/17/2023) Active Problems Problem Noted Date Diagnosed Date [...] as of this encounter (statuses as of 11/17/2023) Resolved Problems Problem Noted Date Diagnosed Date [...] as of this encounter (statuses as of 11/17/2023) Immunizations Name Administration Dates Next Due COVID-19 [...] Telephone Encounter - Stanley Martin MD - 11/17/2023 9:06 AM EDT Signed Prescriptions: Disp Refills Albuterol Sulfate HFA 108 (90 Base) MCG/AC*18 g 5 Sig: Inhale 2 Puffs by mouth every 6 hours as needed for Shortness of Breath. Authorizing Provider: STANLEY MARTIN * Telephone Encounter - Terra Zhong LPN - 11/17/2023 9:06 AM EDTPending Prescriptions: Disp Refills Albuterol Sulfate HFA 108 (90 Base) MCG/AC*18 g 5 Sig: Inhale 2 Puffs by mouth every 6 hours as needed for Shortness of Breath. * Telephone Encounter - Terra Zhong LPN - 11/17/2023 9:04 AM EDT Did you pend patient's preferred pharmacy and medication before forwarding?yes Pharmacy: [facility] [address] Pending Prescriptions: Disp Refills Albuterol Sulfate HFA 108 (90 Base) MCG/A*18 g 5 Sig: Inhale 2 Puffs by mouth every 6 hours as needed for Shortness of Breath. Last Visit: 09/22/2023 (in office), 08/30/2019 (telemedicine) Next Visit: 11/22/2023 If no future appointments scheduled, and last appointment is greater than a year ago, please schedule patient for a follow-up appointment Last date the medication was ordered: 02/06/2020 Is this request for a controlled substance?No Urine Drug Screen:No results found. However, due to the size of the patient record, not all encounters were searched. Please check Results Review for a complete set of results. Patient Phone Numbers Labs: Lab Results Component Value Date/Time CREAT 1.3 (H) 08/24/2023 11:41 AM CREAT 1.1 (H) 04/05/2020 03:07 PM POTASSIUM 4.5 08/24/2023 11:41 AM POTASSIUM 4.1 04/05/2020 03:07 PM TSH 1.97 08/11/2023 11:15 AM TSH 0.86 04/05/2020 03:07 PM LDLCALC 105 02/04/2023 10:16 AM LDLCALC 86 07/26/2019 07:37 AM LDLDIRECT 102 04/05/2020 03:07 PM LDLDIRECT 104 09/12/2018 02:33 PM ALT 10 08/11/2023 11:15 AM ALT 13 04/05/2020 03:07 PM HGBA1C 5.6 09/07/2006 08:24 AM documented in this encounter Plan of Treatment Upcoming Encounters Date Type Department Care Team (Late st Contact Info) Description 11/22/2023 10:40 AM EDT Anticoagulation Pharmacy, [facility] [address] [place] [address] Pharmacist2, [facility] [address] [place] [address] 11/22/2023 12:00 PM EDT Office Visit Pulmonary Medicine, [facility] 132 [facility] [place] [address] KathyStanley parrish MD [address] [place] [address] 02/22/2024 11:15 AM EST Office Visit Dermatology [facility] [address] [place] [address] Phil Perez MD 200 [facility] [place] [address] 03/09/2024 11:20 AM EST Office Visit General Internal Medicine [facility] 200 [facility] [place] [address] Phil Maldonado MD 200 [facility] [place] [address] 04/07/2024 11:30 AM EST Office Visit Nephrology, [facility] 200 [facility] [place] [address] Gena Walton PA-C 200 [facility] [place] [address] 04/11/2024 1:00 PM EST Office Visit Rheumatology [address] [address] Tristan Richards MD [facility] [address] [place] [address] Health Maintenance Due Date Last Done Comments Adult Wellness Visit 01/21/2022 01/21/2021 COVID-19 Vaccine (2022- season) 2023 01/27/2023, 03/18/2022, 01/23/2021, Additional history exists Depression Screening 07/22/2023 07/21/2022 DTaP,Tdap,and Td Vaccines (2 - Td or Tdap) 09/08/2023 09/07/2013, 02/17/2010, 10/18/2001, Additional history exists Influenza Vaccine (FLU shot) (#1) 2023 01/05/2023, 01/16/2022, 12/27/2020, Additional history exists GFR 02/24/2024 08/24/2023, 0 10/2023, 02/04/2023, Additional history exists CKD HGB USE SMARTSET 22690 07/04/202407/04, 07/05/2023, 02/04/2023, Additional history exists CKD PHOS USE SMARTSET 34276 08/10/202407/27, 08/25/2022, 06/26/2021, Additional history exists TSH 08/10/2024 08/11/2023, 0 10/2023, 02/04/2023, Additional history exists Albumin/Creatinine Ratio 08/11/2024 024, 08/26/2022, 06/30/2021, Additional history exists DXA Scan 10/04/2025 10/05/2023, 0 11/2023, 09/30/2021, Additional history exists Zoster Vaccines Discontinued 02/10/2007 Pneumococcal Vaccine: 65+ Years Completed 07/20/2014, 01/30/2008, 10/16/1994 VITAMIN D LEVEL ONCE IN A LIFETIME-USE SMARTSET# 53423 Completed 08/24/2023, 04/01/2023, 11/13/2022, Additional history exists HPV (Gardasil) Vaccine Aged Out No lo nger eligible based on patient's age to complete this topic MENINGOCOCCAL (MENACTRA/MENVEO) Aged Out No longer eligible based on patient's age to complete this topic documented as of this encounter Medical Devices Implanted Type Area Professor Of Astronomy Device Identifier Shelf Expiration Date Model / Serial / Lot Lens Intraoc 22.0 - [id number] - [id number] Implanted:Qty: 1 on 07/01/2021 by Gee Hagen MD at OR [facility] Right: Eye [employer]USCH [employer] LOMB 02/25/2026 [id number] / [id number] / [id number] Lens Intraoc 19.5 - [id number] - [id number] Implanted:Qty: 1 on 07/15/2021 by Gee Hagen MD at OR [facility] Left: Eye BAUSCH & LOMB 02/25/2026 [id number] / [id number] / documented as of this encounter Visit Diagnoses Diagnosis Moderate persistent asthma without complication Unspecified asthma documented in this encounter Care Teams Hims Manager Relationship Specialty Start Date End Date Phil Maldonado MD [address] [place] [address] PCP - General Internal Medicine 06/19/19 documented as of this encounter
--- OUTSIDE RECORDS SUMMARY | 2024-01-02 15:34 | External Medical Summary ---
Author Name Unknown Address Unknown Organization K09:[facility] [place] [id number] Laboratory Report Ordering Provider Test Date Status VIKY GILL 11/22/2023 10:37:57 Final Therapeutic ranges for non-o perative patients:
Prophylaxsis/treatment of DVT: (Range:2.0-3.0)
Treatment of pulmonary embolism:(Range:2.0-3.0)
Prevention of systemic embolism from:
-tissue heart valves
-acute myocardial infarction
-valvular heart disease
-atrial fibrillation
(Range: 2.0-3.0)
Mechanical prosthetic valves: (Range: 2.5-3.5) Observation Date Value Abnormality Reference (Units ) Status INR in Capillary blood by Coagulation assay 11/22/2023 10:37:57 2.6 (INR) Final Performing Location [facility] [place] [id number]
--- OUTSIDE RECORDS SUMMARY | 2024-01-02 15:34 | External Medical Summary | Summary of Care ---
Author Name Unknown Organization [facility] Address [address] [place] [address] Phone [phone] Care Team Providers Care [place] Guide Name Role Phone Phil Maldonado MD Primary Care Provider + Encounter Details Date Type Department Care Team (Late st Contact Info) Description 08/27/2023 Telephone Nephrology, [facility] [place] [address] [place] [address] ZemaitisGena PA-C [address] [place] [address] Allergies Active Allergy Reactions Criticality Noted Date Comments Azithromycin Anaphylaxis High 08/11/2023 Sulfa Antibiotics Hives 10/29/1998 documented as of this encounter (statuses as of 11/26/2023) Medications Medication Sig Dispensed Refills Start Date [...] Additional Information Patient taking differently:75 mcg Oral [id number], AT LEAST 30 MINUTES PRIOR TO BREAKFAST OR OTHER MEDS,Indications: Hypothyroidism, Reported on 05/26/2023 Azelastine HCl 0.1 % Nasal Solution (Astelin) Administer 2 Sprays into nostril in the morning and 2 Sprays before bedtime. 90 mL 3 01/15/20 23 Active Additional Information Patient taking differently:2 [place] NasalBID PRN, Rhinitis, Indications: Allergic Rhinitis, Reported [...] 23 Active Additional Information Patient taking differently:2 [place] Each Nostril Daily(AM),Indications: Allergic Rhinitis, Reported on [...] mouth in the morning. 08/11/19 24 Active Albuterol Sulfate HFA 108 (90 Base) MCG/ACT Inhalation Aerosol SolutionIndications :Moderate persistent asthma without complication Inhale 2 Puffs by mouth every 6 hours as needed for Shortness of Breath. 18 g 5 12/17/19 23 024 Discontinued Spironolactone 25 MG Oral Tablet (Aldactone) TAKE 1 TABLET BY MOUTH ONCE DAILY IN THE MORNING 30 Tablet 6 03/25/20 23 024 Discontinued LORazepam 1 MG Oral Tablet (Ativan)Indications :ETTA (generalized anxiety disorder) Take 1 Tablet (1 mg) by mouth 3 times a day as needed for Anxiety. 30 Tablet 07/08/19 24 024 Discontinued Metoprolol Succinate ER 25 MG Oral Tablet Extended Release 24 Hour (toPROL XL)Indications:Esse ntial hypertension with goal blood pressure less than 140/90 TAKE 1/2 TABLET EVERY MORNING 45 Tablet 1 08/04/19 24 024 Discontinued Hospital, Clinic, or Other Facility Administered Medication Ordered Dose Route Frequency Start Date End Date Status Denosumab (Prolia) subcut inj 60 mgIndications:Senile osteoporosis 60 mg SC [id number] 03/04/2023 02/27/2024 Active documented as of this encounter (statuses as of 11/26/2023) Active Problems Problem Noted Date Diagnosed Date [...] as of this encounter (statuses as of 11/26/2023) Resolved Problems Problem Noted Date Diagnosed Date [...] as of this encounter (statuses as of 11/26/2023) Immunizations Name Administration Dates Next Due COVID-19 [...] encounter Miscellaneous Notes * Telephone Encounter - Gena Walton PA-C - 09/08/2023 11:39 AM EDT Please Specialist Response Date of Response: 08/27/2023 Assessment: 83 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 Recommendations: Please do the following: Repeat a CTA abdomen/pelvis and if there has been any interval growth, please refer to vascular surgery at [facility]. If stable in size can be checked every 1-2 years with repeat CTA, if clinically indicated. Time Spent: 5 minutes Specialist Signature: Kyle Mckeon MD Section of Vascular [place] [address] [phone] * Telephone Encounter - Gena Walton PA-C - 08/27/2023 3:58 PM EDT Please change patient upcoming appt to an visit with Dr. Hernandez - Pt in need of of MD montoya up and has not been seen by her in over 1 yr. Gena Walton PA-C documented in this encounter Plan of Treatment Upcoming Encounters Date Type Department Care Team (Late st Contact Info) Description 01/03/2024 10:30 AM EDT Anticoagulation Pharmacy, [facility] [place] [address] [facility] [place] [address] Pharmacist2, [facility] [address] [facility] [place] [address] 02/22/2024 11:15 AM EST Office Visit Dermatology [facility] [place] [address] [facility] [place] [address] Phil Perez MD [address] [facility] [place] [address] 03/09/2024 11:20 AM EST Office Visit General Internal Medicine [facility] [place] [address] [facility] [place] [address] Phil Maldonado MD [address] [facility] [place] [address] 04/03/2024 12:40 PM EST Office Visit Pulmonary Medicine, [facility] [address] [place] [address] Stanley Chavez MD [address] [place] [address] 04/07/2024 11:30 AM EST Office Visit Nephrology, [facility] [place] [address] [place] [address] ZemaitisGena PA-C [address] [place] [address] Health Maintenance Due Date Last Done Comments [...] Additional history exists CKD HGB USE SMARTSET 91358 07/04/202407/04, 07/05/2023, 02/04/2023, Additional history exists CKD PHOS USE SMARTSET 04515 08/10/202407/27, 08/25/2022, 06/26/2021, Additional history exists TSH 08/10/2024 08/11/2023, 04/0 10/2023, 02/04/2023, Additional history exists Albumin/Creatinine Ratio 08/11/20242 024, 08/26/2022, 06/30/2021, Additional history exists DXA Scan 10/04/2025 10/05/2023, 070 11/2023, 09/30/2021, Additional history exists Zoster Vaccines Discontinued 02/10/2007 Pneumococcal Vaccine: 65+ Years Completed 07/20/2014, 01/30/2008, 10/16/1994 VITAMIN D LEVEL ONCE IN A LIFETIME-USE SMARTSET# 12086 Completed 08/24/2023, 04/01/2023, 11/13/2022, Additional history exists HPV (Gardasil) Vaccine Aged Out No lo nger eligible based on patient's age to complete this topic MENINGOCOCCAL (MENACTRA/MENVEO) Aged Out No longer eligible based on patient's age to complete this topic documented as of this encounter Medical Devices Implanted Type Area Field Advisor Device Identifier Shelf Expiration Date Model / Serial / Lot Lens Intraoc 22.0 - [id number] - [id number] Implanted:Qty: 1 on 07/01/2021 by Gee Hagen MD at [facility] Right: Eye [employer]OM[employer] 02/25/2026 [id number] / [id number] Lens Intraoc 19.5 - [id number] - [id number] Implanted:Qty: 1 on 07/15/2021 by Gee Hagen MD at [facility] Left: Eye BAUSCH [employer] LOMB 02/25/2026 [id number] / [id number] / documented as of this encounter Care Teams [place] Guide Relationship Specialty Start Date End Date Phil Maldonado MD [address] [place] [address] PCP - General Internal Medicine 06/19/19 documented as of this encounter
--- OUTSIDE RECORDS SUMMARY | 2024-01-02 15:34 | External Medical Summary | Summary of Care ---
Author Name Unknown Organization [facility] Address [address] [place] [address] Phone [phone] Care Team Providers Care Procedures Analyst Name Role Phone Phil Maldonado MD Primary Care Provider + Reason for Visit * Reason Comments Dosage Adjustment In Person (Anticoag Cl inic) Encounter Details Date Type Department Care Team (Latest Contact Info) Description 11/22/2023 10:40 AM EDT Anticoagulation Pharmacy, [facility] [address] [place] [address] Pharmacist2, [facility] [address] [place] [address] Anticoagulation management encounter*; History of pulmonary embolism Allergies Active Allergy Reactions Criticality Noted Date Comments Azithromycin Anaphylaxis High 08/11/2023 Sulfa Antibiotics Hives 10/29/1998 documented as of this encounter (statuses as of 11/22/2023) Medications Medication Sig Dispensed Refills Start Date [...] 30-600 MG Oral Tablet Extended Release 12 HourIndications: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 90 mL 3 3 Active Additional Information Patient taking differently:2 [place] NasalBID PRN, Rhinitis, Indications: Allergic Rhinitis, Reported [...] 3 Active Additional Information Patient taking differently:2 [place] Each Nostril Daily(AM),Indications: Allergic Rhinitis, Reported on [...] morning. 60 Blister Dosing Unit 4 Active Hospital, Clinic, or Other Facility Administered Medication Ordered Dose Route Frequency Start Date End Date Status Denosumab (Prolia) subcut inj 60 mgIndications:Senile osteoporosis 60 mg SC [id number] 03/04/2023 02/27/2024 Active documented as of this encounter (statuses as of 11/22/2023) Active Problems Problem Noted Date Diagnosed Date [...] as of this encounter (statuses as of 11/22/2023) Resolved Problems Problem Noted Date Diagnosed Date [...] as of this encounter (statuses as of 11/22/2023) Immunizations Name Administration Dates Next Due COVID-19 [...] encounter Progress Notes * [facility] - 11/22/2023 10:35 AM EDT Medication Therapy Disease Management - Anticoagulation Patient: Horacio Yeung | : 1940 Subjective Patient-Reported Symptoms: Patient Findings Negatives: Signs/symptoms of thrombosis, Signs/symptoms of bleeding, Change in health, Change in alcohol use, Change in activity, Upcoming invasive procedure, Missed doses, Extra doses, Change in medications, Change in diet/appetite, Bruising Objective Current Warfarin Dose As of 11/22/2023 Warfarin maintenance plan: 1.25 mg (2.5 mg x 0.5) every Mon, Adrianna; 2.5 mg (2.5 mg x 1) all other days INR Result As of 11/22/2023 INR goal: 2.0-3.0 INR used for dosin.6 (11/22/2023) Assessment & Plan Warfarin Plan As of 11/22/2023 Full warfarin instructions: 1.25 mg every Mon, Adrianna; 2.5 mg all other days No change documented: [facility] Next INR check: 01/03/2024 Repeat PT/INR in 6 week(s) Weekly dose: not changed Additional Dosing Information: I spent a total of 10-19 minutes (exact time 11 mins) on the date of service in preparation, delivery, and documentation of the care provided to Horacio Yeung excluding any time spent in the performance of separately billed services or time spent by another provider/QHP. [facility] Clinical Pharmacist 11/22/2023, 10:35 AM documented in this encounter Plan of Treatment Upcoming Encounters Date Type Department Care Team (Late st Contact Info) Description 11/22/2023 12:00 PM EDT Office Visit Pulmonary Medicine, [facility] [address] [facility] [place] [address] Stanley Chavez MD [address] [place] [id number] 01/03/2024 10:30 AM EDT Anticoagulation Pharmacy, [facility] [address] [place] [address] Pharmacist2, [facility] [place] [address] [facility] [place] [address] 02/22/2024 11:15 AM EST Office Visit Dermatology [facility] [address] [place] [address] Phil Perez MD [address] [facility] [place] [address] 03/09/2024 11:20 AM EST Office Visit General Internal Medicine [facility] [address] [place] [address] Phil Maldonado MD [address] [place] [address] 04/07/2024 11:30 AM EST Office Visit Nephrology, [facility] [address] [place] [address] ZeGena hoffman PAMari [address] [place] [address] 04/11/2024 1:00 PM EST Office Visit Rheumatology [place] [address] [place] [address] Tristan Richards MD [facility] [place] [address] Health Maintenance Due Date Last Done Comments [...] Additional history exists CKD HGB USE SMARTSET 53723 07/04/202407/04, 07/05/2023, 02/04/2023, Additional history exists CKD PHOS USE SMARTSET 58907 08/10/202407/27, 08/25/2022, 06/26/2021, Additional history exists TSH 08/10/2024 08/11/2023, 0 10/2023, 02/04/2023, Additional history exists Albumin/Creatinine Ratio 08/11/2024 024, 08/26/2022, 06/30/2021, Additional history exists DXA Scan 10/04/2025 10/05/2023, 0 11/2023, 09/30/2021, Additional history exists Zoster Vaccines Discontinued 02/10/2007 Pneumococcal Vaccine: 65+ Years Completed 07/20/2014, 01/30/2008, 10/16/1994 VITAMIN D LEVEL ONCE IN A LIFETIME-USE SMARTSET# 86215 Completed 08/24/2023, 04/01/2023, 11/13/2022, Additional history exists HPV (Gardasil) Vaccine Aged Out No lo nger eligible based on patient's age to complete this topic MENINGOCOCCAL (MENACTRA/MENVEO) Aged Out No longer eligible based on patient's age to complete this topic documented as of this encounter Medical Devices Implanted Type Area Hydroelectric Systems Technician Device Identifier Shelf Expiration Date Model / Serial / Lot Lens Intraoc 22.0 - [id number] - [id number] Implanted:Qty: 1 on 07/01/2021 by Gee Hagen MD at [facility] Right: Eye [employer] LOM[employer] 02/25/2026 [id number] / [id number] / [id number] Lens Intraoc 19.5 - [id number] - [id number] Implanted:Qty: 1 on 07/15/2021 by Gee Hagen MD at [facility] Left: Eye BA[employer]CH [employer] LOMB 02/25/2026 [id number] / [id number] / documented as of this encounter Procedures Procedure Name Priority Date/Time Associated Diagnosis Comments INR FINGERSTICK, POINT OF CARE STAT 11/22/2023 10:37 AM EDT History of pulmonary embolism Anticoagulation management encounter documented in this encounter Results * INR FINGERSTICK, POINT OF CARE (11/22/2023 10:37 AM EDT) Fingerstick INR 2.6 INR 10:40 AM EDT [facility] Blood 11/22/2023 10:3 7 AM EDT 11/22/2023 10:40 AM EDT Narrative [facility] - 11/22/2023 10:40 AM EDT Therapeutic ranges for non-operative patients: Prophylaxsis/treatment of DVT: (Range:2.0-3.0) Treatment of pulmonary embolism:(Range:2.0-3.0) Prevention of systemic embolism from: -tissue heart valves -acute myocardial infarction -valvular heart disease -atrial fibrillation (Range: 2.0-3.0) Mechanical prosthetic valves: (Range: 2.5-3.5) [facility] LAB POINT O F CARE TEST DOCKED DEVICE UNSOLICITED RESULTS [facility] [address] [place] [address] documented in this encounter Visit Diagnoses Diagnosis Anticoagulation management encounter- Primary Encounter for therapeutic drug monitoring History of pulmonary embolism Personal history of pulmonary embolism documented in this encounter Care Teams Procedures Analyst Relationship Specialty Start Date End Date Phil Maldonado MD [address] [facility] [address] PCP - General Internal Medicine 06/19/19 documented as of this encounter"
--- OUTSIDE RECORDS SUMMARY | 2024-01-02 15:34 | External Medical Summary | Summary of Care ---
Author Name Unknown Organization [facility] Address [address] [place] [address] Phone [phone] Care Team Providers Care Evaluation Assistant Name Role Phone Phil Miller MD Primary Care Provider + Reason for Visit * Reason Comments eRx-Medication Refill Encounter Details Date Type Department Care Team (Late st Contact Info) Description 12/16/2023 Refill Pharmacy, [facility] [address] [place] [address] Phil Miller MD [address] [place] [address] History of pulmonary embolism Allergies Active Allergy Reactions Criticality Noted Date Comments Azithromycin Anaphylaxis High 08/11/2023 Sulfa Antibiotics Hives 10/29/1998 documented as of this encounter (statuses as of 12/16/2023) Medications Medication Sig Dispensed Refills Start Date [...] Additional Information Patient taking differently:75 mcg Oral [id number], AT LEAST 30 MINUTES PRIOR TO BREAKFAST OR OTHER MEDS,Indications: Hypothyroidism, Reported on 05/26/2023 Azelastine HCl 0.1 % Nasal Solution (Astelin) Administer 2 Sprays into nostril in the morning and 2 Sprays before bedtime. 90 mL 3 01/15/20 23 Active Additional Information Patient taking differently:2 [place] NasalBID PRN, Rhinitis, Indications: Allergic Rhinitis, Reported [...] 23 Active Additional Information Patient taking differently:2 [place] Each Nostril Daily(AM),Indications: Allergic Rhinitis, Reported on [...] clinic 90 Tablet 3 12/16/19 24 Active Warfarin Sodium 2.5 MG Oral Tablet (Coumadin)Indicatio ns:takes in the evening Take 1 tablet daily Or as directed by coag clinic 90 Tablet 3 09/29/19 23 024 Discontinued Hospital, Clinic, or Other Facility Administered Medication Ordered Dose Route Frequency Start Date End Date Status Denosumab (Prolia) subcut inj 60 mgIndications:Senile osteoporosis 60 mg SC [id number] 03/04/2023 02/27/2024 Active documented as of this encounter (statuses as of 12/16/2023) Active Problems Problem Noted Date Diagnosed Date [...] as of this encounter (statuses as of 12/16/2023) Resolved Problems Problem Noted Date Diagnosed Date [...] as of this encounter (statuses as of 12/16/2023) Immunizations Name Administration Dates Next Due COVID-19 [...] encounter Miscellaneous Notes * Telephone Encounter - Pancho Perez [facility] - 12/16/2023 11:42 AM EDT Signed Prescriptions: Disp Refills Warfarin Sodium 2.5 MG Oral Tablet (Coumad*90 Tab*3 Sig: Take 1 tablet daily Or as directed by coag clinicAuthorizing Provider: PHIL MILLER User: PANCHO PEREZ documented in this encounter Plan of Treatment Upcoming Encounters Date Type Department Care Team (Late st Contact Info) Description 12/28/2023 11:40 AM EDT Immunization Ancillary [facility] [place] [address], [place] [address] Sp, [facility] [address] [place], [place] [address] 01/03/2024 10:30 AM EDT Anticoagulation Pharmacy, [facility] [place] [address] [place], [place] [address] Pharmacist2, [facility] [address], [place] [address] 02/22/2024 11:15 AM EST Office Visit Dermatology [facility] [place] [address], [place] [address] Phil Perez MD [address] [place], [place] [address] 03/09/2024 11:20 AM EST Office Visit General Internal Medicine [facility] [place] [address], [place] [address] Phil Miller MD [address] [place] [address] 04/03/2024 12:40 PM EST Office Visit Pulmonary Medicine, [facility] [address] [place] [address] Stanley Chavez MD [address] [place] [address] 04/07/2024 11:30 AM EST Office Visit Nephrology, [facility] 200 [facility] [place] [address] ZeGena hoffman PA-C 200 [facility] [place] [address] Health Maintenance Due Date Last Done Comments Adult Wellness Visit 01/21/2022 01/21/2021 Depression Screening 07/22/2023 07/21/2022 COVID-19 Vaccine ( season) 2023 01/27/2023, 03/18/2022, 01/23/2021, Additional history exists Influenza Vaccine (FLU shot) (#1) 2023 01/05/2023, 01/16/2022, 12/27/2020, Additional history exists GFR 02/24/2024 08/24/2023, 0 10/2023, 02/04/2023, Additional history exists CKD HGB USE SMARTSET 67275 07/04/202407/04, 07/05/2023, 02/04/2023, Additional history exists CKD PHOS USE SMARTSET 58471 08/10/202407/27, 08/25/2022, 06/26/2021, Additional history exists TSH [...] D LEVEL ONCE IN A LIFETIME-USE SMARTSET# 56385 Completed 08/24/2023, 04/01/2023, 11/13/2022, Additional history exists HPV (Gardasil) Vaccine Aged Out No lo nger eligible based on patient's age to complete this topic MENINGOCOCCAL (MENACTRA/MENVEO) Aged Out No longer eligible based on patient's age to complete this topic documented as of this encounter Medical Devices Implanted Type Area Transit Worker Device Identifier Shelf Expiration Date Model / Serial / Lot Lens Intraoc 22.0 - [id number] - [id number] Implanted:Qty: 1 on 07/01/2021 by Gee Hagen MD at OR [facility] Right: Eye [employer]OM[employer] 02/25/2026 [id number] / [id number] / [id number] Lens Intraoc 19.5 - [id number] - [id number] Implanted:Qty: 1 on 07/15/2021 by Gee Hagen MD at OR [facility] Left: Eye BAUSCH [employer] LOMB 02/25/2026 [id number] / [id number] / documented as of this encounter Visit Diagnoses Diagnosis History of pulmonary embolism Personal history of pulmonary embolism documented in this encounter Care Teams Evaluation Assistant Relationship Specialty Start Date End Date Phil Miller MD [address] [facility] [place], [place] [address] PCP - General Internal Medicine 06/19/19 documented as of this encounter
--- OUTSIDE RECORDS SUMMARY | 2024-01-02 15:34 | External Medical Summary | Summary of Care ---
Author Name Unknown Organization [facility] Address [address] [place] [address] Phone [phone] Care Team Providers Care Deck Supervisor Name Role Phone Phil Maldonado MD Primary Care Provider + Encounter Details Date Type Department Care Team (Late st Contact Info) Description 11/22/2023 12:00 PM EDT Office Visit Pulmonary Medicine, [facility] [address] [facility] [place] [address] Stanley Chavez MD [address] [facility] [place] [address] Chronic cough* Allergies Active Allergy Reactions Criticality Noted Date [...] 30-600 MG Oral Tablet Extended Release 12 HourIndications:Ranger Aide giuliana Cough Take 1 Tablet by mouth [...] Additional Information Patient taking differently:75 mcg Oral [id number], AT LEAST 30 MINUTES PRIOR TO BREAKFAST OR OTHER MEDS,Indications: Hypothyroidism, Reported on 05/26/2023 Azelastine HCl 0.1 % Nasal Solution (Astelin) Administer 2 Sprays into nostril in the morning and 2 Sprays before bedtime. 90 mL 3 3 Active Additional Information Patient taking differently:2 [place] NasalBID PRN, Rhinitis, Indications: Allergic Rhinitis, Reported [...] 3 Active Additional Information Patient taking differently:2 [place] Each Nostril Daily(AM),Indications: Allergic Rhinitis, Reported on [...] inj 60 mgIndications:Senile osteoporosis 60 mg SC [id number] 03/04/2023 02/27/2024 Active documented as of this [...] on file documented as of this encounter Last Filed Vital Signs Vital Sign Reading Time Taken Comments Blood Pressure 116/54 11/22/2023 11:55 AM EDT Pulse 71 11/22/2023 11:55 AM EDT Temperature 36.7 C (98 F) 11/22/2023 11:55 AM EDT Respiratory Rate 18 11/22/2023 11:55 AM EDT Oxygen Saturation 94% 11/22/2023 11:57 AM EDT ra amb Inhaled Oxygen Concentration - - Weight 83.5 kg (184 lb) 11/22/2023 11:55 AM EDT Height 166.4 cm (5' 5.5") 11/22/2023 11:55 AM ED T Body Mass Index 30.15 11/22/2023 11:55 AM EDT documented in this encounter Progress Notes * Stanley Chavez MD - 11/22/2023 12:11 PM EDT 11/22/2023 Pulmonary Medicine, [address] [id number] Horacio Yeung 1940 female 83 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 Patient describes stable respiratory symptoms status without any recurrence of bronchitis symptoms.Compliant with cyclic antibiotic therapy and low-dose prednisone. Prior to cyclic antibiotic therapy and prednisone treatment, patient had multiple episodes where respiratory symptoms reoccurred while patient was off antibiotic therapy and prednisone therapy. Recent CT scan chest showed stable lung parenchyma with scattered parenchymal scarring unchanged oncomparison with historical CT scans. Role of maintenance low-dose corticosteroids therapy for control of bronchiolitis episodes and roleof cycling antibiotic therapy for recurrent bronchiectasis related flare up was discussed. Side effects profile associated with chronic maintenance steroid therapy was discussed. Patient is agreeable continue treatment with low-dose maintenance prednisone therapy along with cyclic antibiotic therapy. Compliant with current bronchodilator regimen including Trelegy and Ventolin along with as needed use of albuterol nebulizer. Takes cetirizine for nasal congestion occasionally. Also compliant with Coumadin for PE Physical examination significant for class 2 throat, no JVD, adequate air entry with minimal rhonchi, basilar rales, no dullness, S1, S2, no murmur, no evidence of volume overload and nonlateralizingNeuro examination. CT chest January 2023 showed no change in size of previously noted lung nodules. Scattered areas of basilar bronchiectasis, no effusions or consolidation noted. CT chest January 2022 showed left upper lobe nodule and thickening of fissure along with new right upper lobe nodule, history of negative PET scan. Bronchodilator therapy will be continued with Trelegy inhaler along with rescue albuterol. Antibiotic therapy with Augmentin twice daily for 10 days each month for 3 months along with low-dose prednisone at 2.5 mg daily will be continued. 6 month pulmonary clinic follow-up is recommended to reassess respiratory symptoms status on above-mentioned maintenance regimen. Meanwhile, patient was advised to contact the office with any change in respiratory symptoms status. Data review: 2008- NE RAST normal , igE 26.3 2021-- pseudomonas noted on sinus culture Pulmonary stress test: Performed 2014: sary 93% on RA, no rest periods required Performed 2022: . Exercise oximetry performed on room air x 6 minutes. Pt ambulated 990 feet/ 302 meters. No rest periods were required. Lowest SPO2 on room air was 92%. Pulmonary Function Test Results: Performed on 10/2015: Spirometry was normal. There was no significant acute bronchodilator response. Flow volume loops were normal. Compared to prior PFTs there has been an insignificant decrease in FVC and FEV1. Chest X-ray: XR CHEST 2 VIEWS-06/17/2023 12:25 pm HISTORY Cough on and off 1 year, SOB COMPARISON Chest radiograph dated 12/03/2022 FINDINGS LINES/DEVICES: None. LUNGS/PLEURA: Clear lungs. No pleural effusion or pneumothorax. IMPRESSION No acute cardiopulmonary disease. Assessment 83 yo female Lifetime nonsmoker Hx of Recurrent Bronchitis and cough while off Abx and Prednisone Bronchiectasis Stable on 09/21 CT scan chest Recurrent post infectious cough Frequesnt traveller ([place]) PE, on coumadin maintenance Reactive Airways Disease UACS GERD Pulm Nodules Plan: C/w trelegy C/w Augmentin 875 BID x 10 day per month cycling Abx course Maintain low dose prednisone at 2.5 mg daily C/w Rescue Albuterol C/w Omeprazole and Cetirizine C/w Coumadin for PE F/u 6 months Follow Up: Return in about 6 months (around 05/24/2024) for Clinic Visit. | For: Clinic Visit | Check-out note: 83 yo female Lifetime nonsmoker Hx of Recurrent Bronchitis and cough while off Abx and Prednisone Bronchiectasis Stable on 09/21 CT scan chest Recurrent post infectious cough Frequesnt traveller ([place]) PE, on coumadin maintenance Reactive Airways Disease UACS GERD Pulm Nodules Plan: C/w trelegy Initiate Augmentin 875 BID x 10 day per month cycling course Maintain low dose prednisone at 2.5 mg daily C/w Rescue Albuterol C/w Omeprazole and Cetirizine C/w Coumadin for PE F/u 6 jed Follow Up: Return in about 6 months (around 05/24/2024) for Clinic Visit. | For: Clinic Visit | Check-out note: hs Stanley Chavez MD Subjective CC: No chief complaint on file. HPI: Nursing Notes: Arthur Field, MED ASSIST 11/22/23 1205 Addendum FU for acute bronchiolitis 09/21- ct chest Interm History/Respiratory Symptoms Cough: periodically Hemoptysis: no Sinus Symptoms: drainage Hospitalizations: no ED Trips: no Triggers: no Nocturnal: cough CPAP/BiPAP/O2: no DME Supplier: na Flu Vaccine: 2022 Pneumovax: 2008 Prevnar: 2015 COVID 19: 2023 MMRC Dyspnea Scale = 2 (On level ground, I walk slower than people of the same age because of breathlessness or have to stop for breath when walking at my own) Objective Filed Vitals: 11/22/23 1155 11/22/23 1157 BP: 116/54 Pulse: 71 Resp: 18 Temp: 36.7 C (98 F) TempSrc: Tympanic SpO2: 95% 94% Weight: 83.5 kg (184 lb) Height: 1.664 m (5' 5.5") Exam: Const: No signs of acute distress present. Head/Face: Normal on inspection. Eyes: Conjunctivae clear. Pupils equal round and reactive to light. ENMT: Oropharynx: No erythema, exudate or masses. Posterior pharynx is normal. Neck: Supple and symmetric. Resp: Respiratory examination as outlined above CV: Rate is regular. Rhythm is regular. No heart murmur appreciated. Extremities: No edema of the lower limbs bilaterally. Skin: Skin is warm and dry. Neuro: Coordination normal. No involuntary movement. Psych: Patient's attitude is cooperative. Mood is normal. Affect is normal. Tests reviewed with the patient: CT ABD/PELVIS WO IV/ORAL CONTRAST Result Date: 10/07/2023 IMPRESSION 1. 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 2. Colonic diverticulosis. DEXA SCAN/BONE MINERAL AXIAL Result Date: 10/06/2023 S: Fracture risk is based on current National Osteoporosis Foundation (www.nof.org) Clinicians Guide and [place] Association of Clinical Endocrinology (AACE) Guidelines (www.aace.com) and the application of current WHO FRAX tool (https://www.melina.ac.uk/FRAX/) as well as the 2017 [place] [employer] Glucocorticoid Induced Osteoporosis (GIOP) Guidelines (rheumatology.org/Practice-Quality/Clinical-Support/Uzmejcra-Ktmxyzkh-Zbidq lines) using Bone mineral density derived T-scoresand clinical risk factors obtained from the patient questionnaire. 1. The fracture risk is HIGH (remains HIGH) 2. The quality of the examination is GOOD. 3. No previous study for comparison. DEXA machine was recently upgraded so comparison study can not be made SUGGESTIONS: Information concerning the evaluation and treatment of osteoporosis can be found at the National Osteoporosis Foundation website (www.nof.org) and [place] Association of Clinical Endocrinology (AACE-www.aace.com). Osteoporosis prevention and treatment begins by modifying risk factors (such as smoking cessation and avoiding alcohol excess) and by participating in weight-bearing activities and exercise. Issues related to fall prevention and home safety should be addressed. Current NOF guidelines suggest 1200 to 1500 mg of calcium from diet and or supplemental sources. It is generally felt best to get calcium from ones diet. Calcium carbonate and calcium citrate are common calciumsupplement choices in most local pharmacies. If the patient is taking a proton pump inhibitor, then calcium citrate should be the preferred supplement, if that is necessary. NOF guidelines for vitamin D are 800 to 1000 units of vitamin D3 daily. However, this may best be guided by measurement of 25-OH vitamin-D level, aiming for a level between 30 to 50 units (ng/ml). Additional information can be found at the FRAX website (https://www.melina.ac.uk/FRAX/), and the [place] [employer] website (https://www.rheumatology.org/Practice-Quality/Clinical-Support/Clinical-Pr actice-Guidelines). 1. The present treatment with Prolia/Denosumab may be helping to maintain bone mineral density. in this patient and should be continued. 2. A repeat study should be considered in 2 years, while on therapy JOANIE DE LA CRUZ M.D. [facility] Certified Clinical Route Delivery Service Driver [facility] CHEST WO CONTRAST Result Date: 09/27/2023 IMPRESSION: Stable chronic pulmonary findings. Otherwise no acute consolidation/pneumonia. Additional chronic findings as above. THIS DOCUMENT HAS BEEN ELECTRONICALLY SIGNED BY ERIC ZAFAR MD XR CHEST 2 VIEWS Result Date: 07/05/2023 IMPRESSION No acute cardiopulmonary disease. XR CHEST 2 VIEWS Result Date: 06/17/2023 IMPRESSION No acute cardiopulmonary disease. Available Radiologic data was reviewed by me in PACS. The images were shown to the patient and findings were discussed with the patient. HOME MEDICATIONS: Trelegy Ellipta 100-62.5-25 MCG/ACT Aerosol Powder Breath Activated (Cybnotdiuaa-Uuauzthxatxk-Xabdimyggy) Albuterol Sulfate HFA 108 (90 Base) MCG/ACT Inhalation Aerosol Solution LORazepam 1 MG Oral Tablet (Ativan) Metoprolol Succinate ER 25 MG Oral Tablet Extended Release 24 Hour (toPROL XL) predniSONE 2.5 MG Oral Tablet (Deltasone) Allopurinol 100 MG Oral Tablet (Zyloprim) Montelukast Sodium 10 MG Oral Tablet (Singulair) PARoxetine HCl 30 MG Oral Tablet (Paxil) Lisinopril-hydroCHLOROthiazide 20-12.5 MG Oral Tablet Spironolactone 25 MG Oral Tablet (Aldactone) Levocetirizine Dihydrochloride 5 MG Oral Tablet Omeprazole 40 MG Oral Capsule Delayed Release (PriLOSEC) Fluticasone Propionate 50 MCG/ACT Nasal Suspension (Flonase) Pravastatin Sodium 10 MG Oral Tablet (Pravachol) Azelastine HCl 0.1 % Nasal Solution (Astelin) Levothyroxine Sodium 75 MCG Oral Tablet (Levoxyl) Mucinex DM 30-600 MG Oral Tablet Extended Release 12 Hour Warfarin Sodium 2.5 MG Oral Tablet (Coumadin) Famotidine 20 MG Oral Tablet (Pepcid) Vitamin D3 25 MCG (1000 UT) Oral Capsule Albuterol Sulfate (2.5 MG/3ML) 0.083% Inhalation Nebulization Solution (Proventil) Polyethylene Glycol 3350 17 GM/SCOOP Oral Powder Dicyclomine HCl 10 MG Oral Capsule (Bentyl) Acetaminophen 500 MG Oral Tablet (Tylenol) Spacer/Aero-Holding Chambers [place] COMPRESSOR/NEBULIZER MISC methylPREDNISolone 4 MG Oral Tablet Therapy Pack (Medrol Dosepack) Prolia 60 MG/ML Subcutaneous Solution Prefilled Syringe (denosumab) Denosumab (Prolia) subcut inj 60 mg ROS: No reported history of Hemoptysis, Hematemesis, Melena No reported history of Dysuria, Hematuria, Flank Pain No reported history of chronic headache, seizures No reported history of Fall or trauma . No reported history of recent change in weight or appetite. Past Medical History: Diagnosis Date Adjustment disorder with depressed mood Aneurysm artery, renal (HCC) 08/03/[address] DUE 2021. Asthma, allergic Asthma, mild persistent 03/03/2011 Cardiac dysrhythmia, unspecified Chronic rhinitis ETTA (generalized anxiety disorder) 06/19/2019 Generalized osteoarthritis History of pulmonary embolism 06/19/2019 HTN, goal below 140/90 Mild aortic regurgitation 03/04/2023 Reflux esophagitis Past Surgical History: Procedure Laterality Date ANESTHESIA FOR KNEE AREA SURGERY 03/29/2000 COLONOSCOPY, DIAGNOSTIC (RECTUM) 10/04/2015 normal/COLONOSCOPY FLEXIBLE PROXIMAL DIAGNOSTIC performed by Luis Mcdaniel MD at ENDOSCOPY [facility] EGD, FLEXIBLE, DIAGNOSTIC 07/11/2013 ESOPHAGOGASTRODUODENOSCOPY (EGD), FLEXIBLE, TRANSORAL, DIAGNOSTIC performed by Brandon Silva MD at ENDOSCOPY [facility] EGD, FLEXIBLE, DIAGNOSTIC 09/02/2022 sm hiatal hernia / ESOPHAGOGASTRODUODENOSCOPY (EGD), FLEXIBLE, TRANSORAL, DIAGNOSTIC performed by Rosy Alanis DO at ENDOSCOPY [facility] LIGATE/CUT OVIDUCT(S) 03/29/1983 Tubal Ligation NASAL ENDOSCOPY, DIAGNOSTIC 05/27/1993 Nasal Endoscopy,Dx NASAL ENDOSCOPY, DX W/SINUSOSCOPY Sinus Nasal/Maxill Endoscopy,Dx NASAL ENDOSCOPY, DX W/SINUSOSCOPY Sinus Nasal/Sphenoid Endoscopy,Dx REMOVE CATARACT, INSERT LENS PROSTH Right 07/01/2021 Right EXTRACAPSULAR CATARACT REMOVAL WITH INTRAOCULAR LENS performed by Gee Hagen MD at OR [facility] REMOVE CATARACT, INSERT LENS PROSTH Left 07/15/2021 Left EXTRACAPSULAR CATARACT REMOVAL WITH INTRAOCULAR LENS performed by Gee Hagen MD at OR [facility] REMOVE GALLBLADDER 03/29/2000 REMOVE TONSILS & ADENOIDS, UNDER 12 Tonsillectomy/Adenoids,<12 Y/O Social History Socioeconomic History Marital status: Tobacco Use Smoking status: Never Smokeless tobacco: Never Vaping Use Vaping status: Never Used Substance and Sexual Activity Alcohol use: Yes Comment: sparingly Drug use: No Sexual activity: Yes Partners: Male Social History Narrative 07/2016 No pets No recent construction/renovation/painting Carpeting 5 yrs old No mold Electric heat Central air Social Determinants of Health Food Insecurity: No Food Insecurity (07/21/2022) Hunger Vital Sign Worried About Running Out of Food in the Last Year: Never true Ran Out of Food in the Last Year: Never true Social Connections Family History Problem Relation Name Age of Onset Stroke Mother 83 Other (blood clots post ?) Mother Mental Disorder Father depression Hypertension Father Other ( at of CVA) Sister Other (covid) Daughter Stroke Aunt (Unspecified) Stroke Aunt (Unspecified) Stroke Uncle (Unspecified) Neurological Disorder Uncle (Unspecified) parkinson's Lung Disorder Grandfather (Maternal) pneumonia in 1920's Stroke Grandmother (Paternal) Stroke Grandfather (Paternal) Review of patient's allergies indicates: Allergen Reactions Azithromycin Anaphylaxis Sulfa Antibiotics Hives documented in this encounter Nursing Notes * Arthur Field, MED ASSIST - 11/22/2023 11:50 AM EDT FU for acute bronchiolitis 09/21- ct chest Interm History/Respiratory Symptoms Cough: periodically Hemoptysis: no Sinus Symptoms: drainage Hospitalizations: no ED Trips: no Triggers: no Nocturnal: cough CPAP/BiPAP/O2: no DME Supplier: na Flu Vaccine: 2022 Pneumovax: 2008 Prevnar: 2015 COVID 19: 2022 MMRC Dyspnea Scale = 2 (On level ground, I walk slower than people of the same age because of breathlessness or have to stop for breath when walking at my own) documented in this encounter Plan of Treatment Upcoming Encounters Date Type Department Care Team (Late st Contact Info) Description 01/03/2024 10:30 AM EDT Anticoagulation Pharmacy, [facility] [address] [place] [address] Pharmacist2, [facility] [address] [place] [address] 02/22/2024 11:15 AM EST Office Visit Dermatology [facility] [address] [place] [address] Phil Perez MD [address] [place] [address] 03/09/2024 11:20 AM EST Office Visit General Internal Medicine [facility] [address] [place] [address] hPil Maldonado MD [address] [facility] [place] [address] 04/03/2024 12:40 PM EST Office Visit Pulmonary Medicine, [facility] [address] [facility] [place] [address] Stanley Chavez MD [address] [place] [address] 04/07/2024 11:30 AM EST Office Visit Nephrology, [facility] [address] [place] [address] Gena Walton PA-C [address] [place] [address] Health Maintenance Due Date Last Done Comments [...] Additional history exists CKD HGB USE SMARTSET 75988 07/04/202407/04, 07/05/2023, 02/04/2023, Additional history exists CKD PHOS USE SMARTSET 41001 08/10/202407/27, 08/25/2022, 06/26/2021, Additional history exists TSH 08/10/2024 08/11/2023, 04/0 10/2023, 02/04/2023, Additional history exists Albumin/Creatinine Ratio 08/11/2024 024, 08/26/2022, 06/30/2021, Additional history exists DXA Scan 10/04/2025 10/05/2023, 07/0 11/2023, 09/30/2021, Additional history exists Zoster Vaccines Discontinued 02/10/2007 Pneumococcal Vaccine: 65+ Years Completed 07/20/2014, 01/30/2008, 10/16/1994 VITAMIN D LEVEL ONCE IN A LIFETIME-USE SMARTSET# [id number] Completed 08/24/2023, 04/01/2023, 11/13/2022, Additional history exists HPV (Gardasil) Vaccine Aged Out No lo nger eligible based on patient's age to complete this topic MENINGOCOCCAL (MENACTRA/MENVEO) Aged Out No longer eligible based on patient's age to complete this topic documented as of this encounter Medical Devices Implanted Type Area Senior Biostatistician Device Identifier Shelf Expiration Date Model / Serial / Lot Lens Intraoc 22.0 - [id number] - [id number] Implanted:Qty: 1 on 07/01/2021 by Gee Hagen MD at OR [facility] Right: Eye [employer] 02/25/2026 [id number] / [id number] / [id number] Lens Intraoc 19.5 - [id number] - [id number] Implanted:Qty: 1 on 07/15/2021 by Gee Hagen MD at OR [facility] Left: Eye [employer] 02/25/2026 [id number] / [id number] / documented as of this encounter Visit Diagnoses Diagnosis Chronic cough- Primary Cough documented in this encounter Care Teams Deck Supervisor Relationship Specialty Start Date End Date Phil Maldonado MD [address] [place] [address] PCP - General Internal Medicine 06/19/19 documented as of this encounter
--- OUTSIDE RECORDS SUMMARY | 2024-01-02 15:35 | External Medical Summary | Summary of Care ---
Author Name Unknown Organization [facility] Address [address] [place] [address] Phone [phone] Care Team Providers Care Business Solutions Director Name Role Phone Phil Maldonado MD Primary Care Provider + Reason for Visit * Reason Onset Date Comments Home Monitoring Alarm 10/21/2023 Encounter Details Date Type Department Care Team (Late st Contact Info) Description 10/21/2023 Home Monitoring Care Coordination [address], [place] [id number] Lucie Cade, KELLE Hypertensive kidney disease with stage 3b chronic kidney disease (HCC)*; Essential hypertension with goal blood pressure less than 140/90 Allergies Active Allergy Reactions Criticality Noted Date Comments Azithromycin Anaphylaxis High 08/11/2023 Sulfa Antibiotics Hives 10/29/1998 documented as of this encounter (statuses as of 10/21/2023) Medications Medication Sig Dispensed Refills Start Date [...] 30-600 MG Oral Tablet Extended Release 12 HourIndications:Archeologist giuliana Cough Take 1 Tablet by mouth [...] Additional Information Patient taking differently:75 mcg Oral [id number], AT LEAST 30 MINUTES PRIOR TO BREAKFAST OR OTHER MEDS,Indications: Hypothyroidism, Reported on 05/26/2023 Azelastine HCl 0.1 % Nasal Solution (Astelin) Administer 2 Sprays into nostril in the morning and 2 Sprays before bedtime. 90 mL 3 3 Active Additional Information Patient taking differently:2 [place] NasalBID PRN, Rhinitis, Indications: Allergic Rhinitis, Reported [...] 3 Active Additional Information Patient taking differently:2 [place] Each Nostril Daily(AM),Indications: Allergic Rhinitis, Reported on [...] inj 60 mgIndications:Senile osteoporosis 60 mg SC [id number] 03/04/2023 02/27/2024 Active documented as of this encounter (statuses as of 10/21/2023) Active Problems Problem Noted Date Diagnosed Date [...] as of this encounter (statuses as of 10/21/2023) Resolved Problems Problem Noted Date Diagnosed Date [...] as of this encounter (statuses as of 10/21/2023) Immunizations Name Administration Dates Next Due COVID-19 [...] this encounter Progress Notes * Pancho Perez [facility] - 10/21/2023 9:47 AM EDT Patient Phone Numbers Given patient states that increasing Toprol XL or adding norvasc seem to lead to the same symptoms is it possible we can adjust her BP goal to 140/90? Confirmed with patient to decrease toprol XL back down to 12.5mg/day for now. Hypertension Medications: DEC: Metoprolol ER 12.5mg QAM Lisinopril/HCTZ 20/12.5mg Take 2 tabs QAM (Max dose of lisinopril, some room on HCTZ) Aldactone 25mg QAM Pancho Perez, PharmD, BCACP, [facility] Clinical Pharmacist 10/21/2023, 9:48 AM * Lucie Cade LPN - 10/21/2023 9:42 AM EDT Horacio Yeung [id number] Pt bp this am was 111/55. There was no alarm for this reading, however, pt did sent text(see below). Please reach out to pt to discuss her concerns with the increase in Metroprolol. Pt aware I am sending this to pharmacist for review. Yes it was a BP med, the topral XL. Im not going to take any more of the extra as I feel weird again this morn, unsteady on my fee and I dont feel I should drive. I know my BP is down today butI dont want to feel like this. Historically Josy always felt best when my BP is just elevated a little, in the 140s. Thank you, Lucie Cade LPN' documented in this encounter Plan of Treatment Upcoming Encounters Date Type Department Care Team (Late st Contact Info) Description 11/22/2023 10:40 AM EDT Anticoagulation Pharmacy, [facility] [address] [place] [address] Pharmacist2, [facility] [address] [facility] [place], [place] [address] 11/22/2023 12:00 PM EDT Office Visit Pulmonary Medicine, [facility] [address] [place] [address] Stanley Chavez [facility] [address] [facility] [address] 02/22/2024 11:15 AM EST Office Visit Dermatology [facility] [address] [place] [address] Phil Perez MD [address] [place] [address] 03/09/2024 11:20 AM EST Office Visit General Internal Medicine [facility] [address] [place] [address] Phil Maldonado MD [address] [place] [address] 04/07/2024 11:30 AM EST Office Visit Nephrology, [facility] [address] [facility] [place], [place] [address] Gena Walton PA-C [address] [place] [address] 04/11/2024 1:00 PM EST Office Visit Rheumatology [place] [id number] [facility] [place], [place] [address] Tristan Richards MD [address] [place] [address] Health Maintenance Due Date Last Done Comments COVID-19 Vaccine (2022- season) 2023 01/27/2023, 03/18/2022, 01/23/2021, Additional history exists Depression Screening 07/22/2023 07/21/2022 DTaP,Tdap,and Td Vaccines (2 - Td or Tdap) 09/08/2023 09/07/2013, 02/17/2010, 10/18/2001, Additional history exists Influenza Vaccine (FLU shot) (#1) 2023 01/05/2023, 01/16/2022, 12/27/2020, Additional history exists GFR 02/24/2024 08/24/2023, 04/0 10/2023, 02/04/2023, Additional history exists CKD HGB USE SMARTSET 49898 07/04/202407/04, 07/05/2023, 02/04/2023, Additional history exists CKD PHOS USE SMARTSET 00555 08/10/2024 0507/2023, 08/25/2022, 06/26/2021, Additional history exists TSH 08/10/2024 08/11/2023, 04/0 10/2023, 02/04/2023, Additional history exists Albumin/Creatinine Ratio 08/11/2024 024, 08/26/2022, 06/30/2021, Additional history exists DXA Scan 10/04/2025 10/05/2023, 070 11/2023, 09/30/2021, Additional history exists Zoster Vaccines Discontinued 02/10/2007 Pneumococcal Vaccine: 65+ Years Completed 07/20/2014, 01/30/2008, 10/16/1994 VITAMIN D LEVEL ONCE IN A LIFETIME-USE SMARTSET# 30573 Completed 08/24/2023, 04/01/2023, 11/13/2022, Additional history exists HPV (Gardasil) Vaccine Aged Out No lo nger eligible based on patient's age to complete this topic MENINGOCOCCAL (MENACTRA/MENVEO) Aged Out No longer eligible based on patient's age to complete this topic documented as of this encounter Medical Devices Implanted Type Area Video Effects Editor Device Identifier Shelf Expiration Date Model / Serial / Lot Lens Intraoc 22.0 - [id number] - [id number] Implanted:Qty: 1 on 07/01/2021 by Gee Hagen MD at OR [facility] Right: Eye [employer]OM[employer] 02/25/2026 [id number] / [id number] / [id number] Lens Intraoc 19.5 - [id number] - [id number] Implanted:Qty: 1 on 07/15/2021 by Gee Hagen MD at OR [facility] Left: Eye [employer]CH [employer] LOMB 02/25/2026 [id number] / [id number] / documented as of this encounter Visit Diagnoses Diagnosis Hypertensive kidney disease with stage 3b chronic kidney disease (HCC)- Primary Essential hypertension with goal blood pressure less than 140/90 documented in this encounter Care Teams Business Solutions Director Relationship Specialty Start Date End Date Phil Maldonado MD [address] [place] [address] PCP - General Internal Medicine 06/19/19 documented as of this encounter
--- OUTSIDE RECORDS SUMMARY | 2024-01-02 15:35 | External Medical Summary | Summary of Care ---
Author Name Unknown Organization [facility] Address [address] [place] [address] Phone [phone] Care Team Providers Care Generation Mechanic Helper Name Role Phone Phil Maldonado MD Primary Care Provider + Reason for Visit * Reason Comments Dosage Adjustment Via Phone (anticoag Cl inic) Encounter Details Date Type Department Care Team (Late st Contact Info) Description 10/18/2023 3:20 PM EDT Telemedicine Pharmacy, [facility] [address] [facility] [place] [address] Pharmacist2, [facility] [address] [facility] [place] [place] [address] Essential hypertension with goal blood pressure less than 140/90* Allergies Active Allergy Reactions Criticality Noted Date Comments Azithromycin Anaphylaxis High 08/11/2023 Sulfa Antibiotics Hives 10/29/1998 documented as of this encounter (statuses as of 10/18/2023) Medications Medication Sig Dispensed Refills Start Date End Date Status COMPRESSOR/NEBULIZ ER MISCIndications:Ba cterial pneumonia,Asthma, mild persistent use for DuoNeb administration 1 Each 0 06/06/19 15 Active Spacer/Aero-Holdin g Chambers DEVIIndications:As thma, mild persistent Use with inhalers as instructed. 1 Device 2 05/06/19 17 Active Prolia 60 MG/ML Subcutaneous Solution Prefilled Syringe (denosumab)Indicat ions:Osteoporosis Inject 60 mg under the skin every 6 months. 1 Each 02/06/20 Active Acetaminophen 500 MG Oral Tablet (Tylenol)Indicatio ns:Neck pain,Chronic right shoulder pain Take 2 Tablets by mouth every 12 hours as needed for Pain, Mild. 100 Tab 10/05/19 Active Dicyclomine HCl 10 MG Oral Capsule (Bentyl)Indication s:Irritable bowel syndrome with diarrhea TAKE 1 CAPSULE BY MOUTH 4 TIMES DAILY NEEDED FOR ABDOMINAL PAIN/CRAMPING. 120 Capsule 11 01/17/20 22 Active Additional Information Patient taking differently:, TAKE 1 CAPSULE BY MOUTH 4 TIMES DAILY NEEDED FOR ABDOMINAL PAIN/CRAMPING.,Indications: Abdominal Pain, Reported on 05/26/2023 Polyethylene Glycol 3350 17 GM/SCOOP Oral PowderIndications: Constipation Prophylaxis Take 17 g by mouth as needed for Constipation. Dissolve one heaping tablespoon in 8 ounces of water or juice. 04/20/19 Active Albuterol Sulfate (2.5 MG/3ML) 0.083% Inhalation Nebulization Solution (Proventil)Indicat ions:Moderate persistent asthma without complication Inhale 1 Vial via nebulizer every 6 hours as needed for Wheezing. 360 mL 11 05/07/19 Active Additional Information Patient taking differently:1 Vial Nebulizer Q6H PRN, Wheezing,Indications: Asthma, Reported on 05/26/2023 Vitamin D3 25 MCG (1000 UT) Oral CapsuleIndications :Nutritional Support 05/12/19 Active Famotidine 20 MG Oral Tablet (Pepcid) Take 1 Tablet by mouth at bedtime. 30 Tablet 2 08/29/19 Active Additional Information Patient taking differently:20 mg OralHS PRN, Heartburn, Indications: Heartburn, Reported on 05/26/2023 Warfarin Sodium 2.5 MG Oral Tablet (Coumadin)Indicati ons:takes in the evening Take 1 tablet daily Or as directed by coag clinic 90 Tablet 3 09/29/19 23 Active Additional Information Patient taking differently:, Take 1 tablet daily Or as directed by coag clinic,Indications: Prophylaxis of DVT in Non-Haemorrhagic Stroke Patients, takes in the evening, Reported on 05/26/2023 Mucinex DM 30-600 MG Oral Tablet Extended Release 12 HourIndications:Ch ronic Cough Take 1 Tablet by mouth 2 times a day as needed for Cough. Take with plenty of water. Do not cut, crush or chew 40 Tablet 2 12/04/19 Active Albuterol Sulfate HFA 108 (90 Base) MCG/ACT Inhalation Aerosol SolutionIndication s:Moderate persistent asthma without complication Inhale 2 Puffs by mouth every 6 hours as needed for Shortness of Breath. 18 g 5 12/17/19 Active Additional Information Patient taking differently:2 Puff Inhalation Q6H PRN, Shortness of Breath,Indications: Asthma, Reported on 05/26/2023 Levothyroxine Sodium 75 MCG Oral Tablet (Levoxyl)Indicatio ns:Hypothyroidism due to acquired atrophy of thyroid Take 1 Tablet by mouth daily first thing in the morning. AT LEAST 30 MINUTES PRIOR TO BREAKFAST OR OTHER MEDS 90 Tablet 3 12/24/19 Active Additional Information Patient taking differently:75 mcg Oral [id number], AT LEAST 30 MINUTES PRIOR TO BREAKFAST OR OTHER MEDS,Indications: Hypothyroidism, Reported on 05/26/2023 Azelastine HCl 0.1 % Nasal Solution (Astelin) Administer 2 Sprays into nostril in the morning and 2 Sprays before bedtime. 90 mL 3 01/15/20 Active Additional Information Patient taking differently:2 [place] NasalBID PRN, Rhinitis, Indications: Allergic Rhinitis, Reported on 05/26/2023 Pravastatin Sodium 10 MG Oral Tablet (Pravachol)Indicat ions:Dyslipidemia TAKE 1 TABLET BY MOUTH AT BEDTIME 90 Tablet 3 01/22/20 Active Additional Information Patient taking differently: Indications: Hyperlipidemia, Reported on 05/26/2023 Fluticasone Propionate 50 MCG/ACT Nasal Suspension (Flonase) Administer 2 Sprays into each nostril in the morning. 16 g 2 02/10/20 Active Additional Information Patient taking differently:2 [place] Each Nostril Daily(AM),Indications: Allergic Rhinitis, Reported on 05/26/2023 Omeprazole 40 MG Oral Capsule Delayed Release (PriLOSEC)Indicati ons:Heartburn Take 1 Capsule by mouth daily as [...] IN THE MORNING,Indications: Hypertension, Reported on 05/26/2023 Lisinopril-hydroCH LOROthiazide 20-12.5 MG Oral TabletIndications: Hypertension Take 2 Tablets by mouth in the morning. 180 Tablet 1 07/09/19 24 Active PARoxetine HCl 30 MG Oral Tablet (Paxil)Indications :Generalized anxiety disorder TAKE 1 TABLET BY MOUTH ONCE DAILY IN THE MORNING 90 Tablet 1 08/04/19 24 Active Montelukast Sodium 10 MG Oral Tablet (Singulair)Indicat ions:Asthma TAKE 1 TABLET BY MOUTH AT BEDTIME 90 Tablet 1 08/04/19 24 Active Allopurinol 100 MG Oral Tablet (Zyloprim)Indicati ons:Gout Prophylaxis Take 2 Tablets by mouth in the morning. 08/11/19 24 Active methylPREDNISolone 4 MG Oral Tablet Therapy Pack (Medrol Dosepack) follow package directions 21 Tablet 09/13/19 24 Active predniSONE 2.5 MG Oral Tablet (Deltasone) Take 1 Tablet by mouth in the morning. 30 Tablet 3 09/22/19 24 024 Active LORazepam 1 MG Oral Tablet (Ativan)Indication s:ETTA (generalized anxiety disorder) Take 1 Tablet (1 mg) by mouth 3 times a day as needed for Anxiety. 30 Tablet 09/29/19 24 Active Metoprolol Succinate ER 25 MG Oral Tablet Extended Release 24 Hour (toPROL XL)Indications:Ess ential hypertension with goal blood pressure less than 140/90 Take 1 Tablet by mouth in the morning. 90 Tablet 3 10/18/19 24 Active Metoprolol Succinate ER 25 MG Oral Tablet Extended Release 24 Hour (toPROL XL)Indications:Ess ential hypertension with goal blood pressure less than 140/90 TAKE 1/2 TABLET EVERY MORNING 45 Tablet 1 08/04/19 24 024 Discontinued Trelegy Ellipta 100-62.5-25 MCG/ACT Aerosol Powder Breath Activated (Fluticasone-Umecl idinium-Vilanterol ) Inhale 1 Puff by mouth in the morning. 60 Blister Dosing Unit 09/02/19 24 024 Discontinued(Re fill) Hospital, Clinic, or Other Facility Administered Medication Ordered Dose Route Frequency Start Date End Date Status Denosumab (Prolia) subcut inj 60 mgIndications:Senile osteoporosis 60 mg SC [id number] 03/04/2023 02/27/2024 Active documented as of this encounter (statuses as of 10/18/2023) Active Problems Problem Noted Date Diagnosed Date [...] as of this encounter (statuses as of 10/18/2023) Resolved Problems Problem Noted Date Diagnosed Date [...] as of this encounter (statuses as of 10/18/2023) Immunizations Name Administration Dates Next Due COVID-19 [...] this encounter Progress Notes * Pancho Perez, [facility] located [facility] - 10/18/2023 12:50 PM EDT [facility] - Hypertension Management This patient was contacted as part of the [facility] Nephrology HTN remote monitoring charter pilot. Blood Pressure Goal: 130/80 mmHg Type of Alert: Yellow Current Hypertension Medications: Metoprolol ER 12.5mg QAM Lisinopril/HCTZ 20/12.5mg Take 2 tabs QAM (Max dose of lisinopril, some room on HCTZ) Aldactone 25mg QAM Previous antihypertensive use: Amlodipine (dizziness) Experiencing symptoms related to elevated BP: No Systolic Diastolic HR 143 73 68 126 54 71 140 57 72 132 54 75 130 65 69 136 63 74 Systolic Diastolic HR Average 135 61 72 Hi 143 73 75 Lo 126 54 68 Range 17 19 7 BP Readings from Last 3 Encounters: 10/04/23 118/72 09/22/23 128/60 08/24/23 110/56 Pulse Readings from Last 3 Encounters: 10/04/23 79 08/24/23 78 08/11/23 87 Recent Labs Units 08/24/23 1141 07/05/23 0910 02/04/23 1016 SODIUM - [facility] mmol/L 142 139 141 POTASSIUM - [facility] mmol/L 4.5 4.5 4.6 CHLORIDE - [facility] mmol/L 105 101 105 CO2 - [facility] mmol/L 22 23 25 CREATININE - [facility] mg/dL 1.3* 1.4* 1.2* BUN - [facility] mg/dL 26* 29* 25* ASSESSMENT & PLAN: BP readings remain elevated, averaging 135/61, goal <130/80. Pt agreeable to increase metoprolol MEDICATION CHANGES: titration of current medication dose Hypertension Medications: INC: Metoprolol ER 25mg QAM Lisinopril/HCTZ 20/12.5mg Take 2 tabs QAM (Max dose of lisinopril, some room on HCTZ) Aldactone 25mg QAM HEALTH MAINTENANCE INTERVENTIONS: Labs: Up to date FOLLOW UP: PRN [facility] Perez [facility] Clinical Pharmacist - Hand Expansion Envelope Maker Medication Therapy Management Clinic 10/18/2023, 12:57 PM Electronically signed by Pancho Perez [facility] at 10/18/2023 2:08 PM EDT documented in this encounter Plan of Treatment Upcoming Encounters Date Type Department Care Team (Late st Contact Info) Description 11/22/2023 10:40 AM EDT Anticoagulation Pharmacy, [facility] [place] [address] [facility] [place] [address] Pharmacist2, [facility] [address] [place] [address] 11/22/2023 12:00 PM EDT Office Visit Pulmonary Medicine, [facility] [address] [facility] [place] [address] Stanley Chavez MD [address] [place] [facility] [place] [address] 02/22/2024 11:15 AM EST Office Visit Dermatology [facility] [place] [address] [place] [address] Phil Perez MD [address] [facility] [place] [address] 03/09/2024 11:20 AM EST Office Visit General Internal Medicine [facility] [place] [address] [place] [address] Phil Maldonado MD [address] [facility] [place] [address] 04/07/2024 11:30 AM EST Office Visit Nephrology, [facility] [address] [place] [address] Gena Walton PA-C [address] [place] [address] 04/11/2024 1:00 PM EST Office Visit Rheumatology [facility] [place] [address] [facility] [place] [address] Tristan Richards MD [address] [place] [address] Health Maintenance Due Date Last Done Comments COVID-19 Vaccine (2022- season) 2023 01/27/2023, 03/18/2022, 01/23/2021, Additional history exists Depression Screening 07/22/2023 07/21/2022 DTaP,Tdap,and Td Vaccines (2 - Td or Tdap) 09/08/2023 09/07/2013, 02/17/2010, 10/18/2001, Additional history exists Influenza Vaccine (FLU shot) (#1) 2023 01/05/2023, 01/16/2022, 12/27/2020, Additional history exists GFR 02/24/2024 08/24/2023, 04/0 10/2023, 02/04/2023, Additional history exists CKD HGB USE SMARTSET 00874 07/04/202407/04, 07/05/2023, 02/04/2023, Additional history exists CKD PHOS USE SMARTSET 17784 08/10/202407/27, 08/25/2022, 06/26/2021, Additional history exists TSH 08/10/2024 08/11/2023, 04/0 10/2023, 02/04/2023, Additional history exists Albumin/Creatinine Ratio 08/11/2024 024, 08/26/2022, 06/30/2021, Additional history exists DXA Scan 10/04/2025 10/05/2023, 070 11/2023, 09/30/2021, Additional history exists Zoster Vaccines Discontinued 02/10/2007 Pneumococcal Vaccine: 65+ Years Completed 07/20/2014, 01/30/2008, 10/16/1994 VITAMIN D LEVEL ONCE IN A LIFETIME-USE SMARTSET# 44714 Completed 08/24/2023, 04/01/2023, 11/13/2022, Additional history exists HPV (Gardasil) Vaccine Aged Out No lo nger eligible based on patient's age to complete this topic MENINGOCOCCAL (MENACTRA/MENVEO) Aged Out No longer eligible based on patient's age to complete this topic documented as of this encounter Medical Devices Implanted Type Area Maintenance Carpenter Device Identifier Shelf Expiration Date Model / Serial / Lot Lens Intraoc 22.0 - [id number] - [id number] Implanted:Qty: 1 on 07/01/2021 by Gee Hagen MD at OR [facility] Right: Eye [employer] 02/25/2026 [id number] / [id number] / [id number] Lens Intraoc 19.5 - [id number] - [id number] Implanted:Qty: 1 on 07/15/2021 by Gee Hagen MD at OR [facility] Left: Eye BAUSCH [employer] LOMB 02/25/2026 [id number] / [id number] / documented as of this encounter Visit Diagnoses Diagnosis Essential hypertension with goal blood pressure less than 140/90- Primary documented in this encounter Care Teams Generation Mechanic Helper Relationship Specialty Start Date End Date Phil Maldonado MD [address] [place] [address] PCP - General Internal Medicine 06/19/19 documented as of this encounter
--- OUTSIDE RECORDS SUMMARY | 2024-01-02 15:35 | External Medical Summary ---
Author Name Unknown Address Unknown Organization K[facility] [place] [id number] Laboratory Report Ordering Provider Test Date Status VIKY GILL 10/18/2023 13:17:38 Final Therapeutic ranges for non-o perative patients:
Prophylaxsis/treatment of DVT: (Range:2.0-3.0)
Treatment of pulmonary embolism:(Range:2.0-3.0)
Prevention of systemic embolism from:
-tissue heart valves
-acute myocardial infarction
-valvular heart disease
-atrial fibrillation
(Range: 2.0-3.0)
Mechanical prosthetic valves: (Range: 2.5-3.5) Observation Date Value Abnormality Reference (Units ) Status INR in Capillary blood by Coagulation assay 10/18/2023 13:17:38 3.1 (INR) Final Performing Location [facility] [place] [facility] [id number]
--- OUTSIDE RECORDS SUMMARY | 2024-01-02 15:35 | External Medical Summary | Summary of Care ---
Author Name Unknown Organization [facility] Address [address] [place] [address] Phone [phone] Care Team Providers Care Remote Broadcast Technician Name Role Phone Phil Maldonado MD Primary Care Provider + Reason for Visit * Reason Onset Date Comments Medication Refill 10/14/2023 Michel valencia 100 -62.5-25 Encounter Details Date Type Department Care Team (Late st Contact Info) Description 10/14/2023 Refill Pulmonary Medicine Mitul Hernandez [address] [phone] Stanley Martin MD [address] [place], [place] [id number] Allergies Active Allergy Reactions Criticality Noted Date [...] Additional Information Patient taking differently:75 mcg Oral [id number], AT LEAST 30 MINUTES PRIOR TO BREAKFAST OR OTHER MEDS,Indications: Hypothyroidism, Reported on 05/26/2023 Azelastine HCl 0.1 % Nasal Solution (Astelin) Administer 2 Sprays into nostril in the morning and 2 Sprays before bedtime. 90 mL 3 01/15/20 Active Additional Information Patient taking differently:2 [place] NasalBID PRN, Rhinitis, Indications: Allergic Rhinitis, Reported [...] 02/10/20 Active Additional Information Patient taking differently:2 [place] Each Nostril Daily(AM),Indications: Allergic Rhinitis, Reported on [...] for Anxiety. 30 Tablet 09/29/19 24 Active Trelegy Ellipta 100-62.5-25 MCG/ACT Aerosol Powder Breath Activated (Fluticasone-Umecl idinium-Vilanterol ) Inhale 1 Puff by mouth in the morning. 60 Blister Dosing Unit 10/18/19 24 Active Metoprolol Succinate ER 25 [...] inj 60 mgIndications:Senile osteoporosis 60 mg SC [id number] 03/04/2023 02/27/2024 Active documented as of this [...] Telephone Encounter - Stanley Martin MD - 10/18/2023 2:00 PM EDT Signed Prescriptions: Disp Refills Trelegy Ellipta 100-62.5-25 MCG/ACT Aeroso*60 Bli*0 Sig: Inhale1 Puff by mouth in the morning.Authorizing Provider: STANLEY MARTIN documented in this encounter Plan of Treatment Upcoming Encounters Date Type Department Care Team (Latest Contact Info) Description 10/18/2023 3:20 PM EDT Telemedicine Pharmacy, [facility] [address] [place] [address] Pharmacist2, [facility] [address], [place] [address] Essential hypertension with goal blood pressure less than 140/90* 11/22/2023 10:40 AM EDT Anticoagulation Pharmacy, [facility] [address] [place] [address] Pharmacist2, [facility] [address] [place] [address] 11/22/2023 12:00 PM EDT Office Visit Pulmonary Medicine, [facility] [address] [place] [address] Stanley Martin MD [address] [place] [address] 02/22/2024 11:15 AM EST Office Visit Dermatology [facility] [address] [place] [address] Phil Perez MD [address] [facility] [place] [facility] [place] [address] 03/09/2024 11:20 AM EST Office Visit General Internal Medicine [facility] [address] [place] [address] Phil Maldonado MD 200 [place] [address] 04/07/2024 11:30 AM EST Office Visit Nephrology, [facility] [address] [place] [address] ZemaitisGena PA-C [address] [facility] [place] [address] 04/11/2024 1:00 PM EST Office Visit Rheumatology [place] [address] [place] [address] Tristan Richards MD [facility] [place] [address] Health Maintenance Due Date Last Done Comments COVID-19 Vaccine (2022- season) 2023 01/27/2023, 03/18/2022, 01/23/2021, Additional history exists Depression Screening 07/22/2023 07/21/2022 DTaP,Tdap,and Td Vaccines (2 - Td or Tdap) 09/08/2023 09/07/2013, 02/17/2010, 10/18/2001, Additional history exists Influenza Vaccine (FLU shot) (#1) 2023 01/05/2023, 01/16/2022, 12/27/2020, Additional history exists GFR 02/24/2024 08/24/2023, 0 10/2023, 02/04/2023, Additional history exists CKD HGB USE SMARTSET 66910 07/04/202407/04, 07/05/2023, 02/04/2023, Additional history exists CKD PHOS USE SMARTSET 63013 08/10/202407/27, 08/25/2022, 06/26/2021, Additional history exists TSH 08/10/2024 08/11/2023, 0 10/2023, 02/04/2023, Additional history exists Albumin/Creatinine Ratio 08/11/2024 024, 08/26/2022, 06/30/2021, Additional history exists DXA Scan 10/04/2025 10/05/2023, 0 11/2023, 09/30/2021, Additional history exists Zoster Vaccines Discontinued 02/10/2007 Pneumococcal Vaccine: 65+ Years Completed 07/20/2014, 01/30/2008, 10/16/1994 VITAMIN D LEVEL ONCE IN A LIFETIME-USE SMARTSET# [id number] Completed 08/24/2023, 04/01/2023, 11/13/2022, Additional history exists HPV (Gardasil) Vaccine Aged Out No lo nger eligible based on patient's age to complete this topic MENINGOCOCCAL (MENACTRA/MENVEO) Aged Out No longer eligible based on patient's age to complete this topic documented as of this encounter Medical Devices Implanted Type Area Reinforcing Bar Setter Device Identifier Shelf Expiration Date Model / Serial / Lot Lens Intraoc 22.0 - [id number] - [id number] Implanted:Qty: 1 on 07/01/2021 by Gee Hagen MD at OR [facility] Right: Eye [employer] 02/25/2026 [id number] / [id number] / [id number] Lens Intraoc 19.5 - [id number] - [id number] Implanted:Qty: 1 on 07/15/2021 by Gee Hagen MD at OR [facility] Left: Eye [employer]OM[employer] 02/25/2026 [id number] / [id number] / documented as of this encounter Care Teams Remote Broadcast Technician Relationship Specialty Start Date End Date Phil Maldonado MD 200 [place] [address] PCP - General Internal Medicine 06/19/19 documented as of this encounter
--- OUTSIDE RECORDS SUMMARY | 2024-01-02 15:35 | External Medical Summary | Summary of Care ---
Author Name Unknown Organization [facility] Address [address] [place] [address] Phone [phone] Care Team Providers Care Glue Wheel Operator Name Role Phone Phil Maldonado MD Primary Care Provider + Encounter Details Date Type Department Care Team (Late st Contact Info) Description 10/19/2023 Population Health External Data Unspecified Department Allergies Active Allergy Reactions Criticality Noted Date Comments Azithromycin Anaphylaxis High 08/11/2023 Sulfa Antibiotics Hives 10/29/1998 documented as of this encounter (statuses as of 10/22/2023) Medications Medication Sig Dispensed Refills Start Date [...] 30-600 MG Oral Tablet Extended Release 12 HourIndications:Label Designer giuliana Cough Take 1 Tablet by mouth [...] Additional Information Patient taking differently:75 mcg Oral [id number], AT LEAST 30 MINUTES PRIOR TO BREAKFAST OR OTHER MEDS,Indications: Hypothyroidism, Reported on 05/26/2023 Azelastine HCl 0.1 % Nasal Solution (Astelin) Administer 2 Sprays into nostril in the morning and 2 Sprays before bedtime. 90 mL 3 3 Active Additional Information Patient taking differently:2 [place] NasalBID PRN, Rhinitis, Indications: Allergic Rhinitis, Reported [...] 3 Active Additional Information Patient taking differently:2 [place] Each Nostril Daily(AM),Indications: Allergic Rhinitis, Reported on [...] inj 60 mgIndications:Senile osteoporosis 60 mg SC [id number] 03/04/2023 02/27/2024 Active documented as of this encounter (statuses as of 10/22/2023) Active Problems Problem Noted Date Diagnosed Date [...] as of this encounter (statuses as of 10/22/2023) Resolved Problems Problem Noted Date Diagnosed Date [...] as of this encounter (statuses as of 10/22/2023) Immunizations Name Administration Dates Next Due COVID-19 [...] Description 11/22/2023 10:40 AM EDT Anticoagulation Pharmacy, [facility] [address] [place], [place] [id number] Pharmacist2, [facility] [address] [place] [address] 11/22/2023 12:00 PM EDT Office Visit Pulmonary Medicine, [facility] [address] [place] [address] Stanley Chavez MD [address] [facility] [address] 02/22/2024 11:15 AM EST Office Visit Dermatology [facility] 200 [place] [address] Phil Perez MD 200 [place] [address] 03/09/2024 11:20 AM EST Office Visit General Internal Medicine [facility] 200 [place] [address] Phil Maldonado MD [address] [facility] [address] 04/07/2024 11:30 AM EST Office Visit Nephrology, [facility] [address] [facility] [place], [place] [address] Gena Walton PA-C 200 [place] [address] 04/11/2024 1:00 PM EST Office Visit Rheumatology [place] [id number] [facility] [place], [place] [address] Tristan Richards MD [address] [place] [address] Health Maintenance Due Date Last Done Comments COVID-19 Vaccine (2022- season) 2023 01/27/2023, 03/18/2022, 01/23/2021, Additional history exists Depression Screening 07/22/2023 07/21/2022 DTaP,Tdap,and Td Vaccines (2 - Td or Tdap) 09/08/2023 09/07/2013, 02/17/2010, 10/18/2001, Additional history exists Influenza Vaccine (FLU shot) (#1) 2023 01/05/2023, 01/16/2022, 12/27/2020, Additional history exists GFR 02/24/2024 08/24/2023, 04/0 10/2023, 02/04/2023, Additional history exists CKD HGB USE SMARTSET 52881 07/04/202407/04, 07/05/2023, 02/04/2023, Additional history exists CKD PHOS USE SMARTSET 44085 08/10/202407/27, 08/25/2022, 06/26/2021, Additional history exists TSH 08/10/2024 08/11/2023, 04/0 10/2023, 02/04/2023, Additional history exists Albumin/Creatinine Ratio 08/11/202408/11/ 024, 08/26/2022, 06/30/2021, Additional history exists DXA Scan 10/04/2025 10/05/2023, 07/0 11/2023, 09/30/2021, Additional history exists Zoster Vaccines Discontinued 02/10/2007 Pneumococcal Vaccine: 65+ Years Completed 07/20/2014, 01/30/2008, 10/16/1994 VITAMIN D LEVEL ONCE IN A LIFETIME-USE SMARTSET# 31186 Completed 08/24/2023, 04/01/2023, 11/13/2022, Additional history exists HPV (Gardasil) Vaccine Aged Out No lo nger eligible based on patient's age to complete this topic MENINGOCOCCAL (MENACTRA/MENVEO) Aged Out No longer eligible based on patient's age to complete this topic documented as of this encounter Medical Devices Implanted Type Area Auto Parts Manager Device Identifier Shelf Expiration Date Model / Serial / Lot Lens Intraoc 22.0 - [id number] - [id number] Implanted:Qty: 1 on 07/01/2021 by Gee Hagen MD at OR [facility] Right: Eye [employer] 02/25/2026 [id number] / [id number] / [id number] Lens Intraoc 19.5 - [id number] - [id number] Implanted:Qty: 1 on 07/15/2021 by Gee Hagen MD at OR [facility] Left: Eye [employer]OM[employer] 02/25/2026 [id number] / [id number] / documented as of this encounter Care Teams Glue Wheel Operator Relationship Specialty Start Date End Date Phil Maldonado MD [address] [facility], [place] [phone] PCP - General Internal Medicine 06/19/19 documented as of this encounter
--- OUTSIDE RECORDS SUMMARY | 2024-01-02 15:35 | External Medical Summary | Summary of Care ---
Author Name Unknown Organization [facility] Address [address] [place] [address] Phone [phone] Care Team Providers Care Associate Financial Representative Name Role Phone Phil Maldonado MD Primary Care Provider + Reason for Visit * Reason Onset Date Comments Medication Refill 10/18/2023 Encounter Details Date Type Department Care Team (Late st Contact Info) Description 10/18/2023 Refill General Internal Medicine [facility] [address] [place] [address] Phil Maldonado MD [address] [place] [address] ETTA (generalized anxiety disorder) Allergies Active Allergy Reactions Criticality Noted Date [...] 05/26/2023 Levothyroxine Sodium 75 MCG Oral Tablet (Levoxyl)Indication s:Hypothyroidism due to acquired atrophy of thyroid Take 1 Tablet by mouth daily first thing in the morning. AT LEAST 30 MINUTES PRIOR TO BREAKFAST OR OTHER MEDS 90 Tablet 3 3 Active Additional Information Patient taking differently:75 mcg Oral [id number], AT LEAST 30 MINUTES PRIOR TO BREAKFAST OR OTHER MEDS,Indications: Hypothyroidism, Reported on 05/26/2023 Azelastine HCl 0.1 % Nasal Solution (Astelin) Administer 2 Sprays into nostril in the morning and 2 Sprays before bedtime. 90 mL 3 3 Active Additional Information Patient taking differently:2 [place] NasalBID PRN, Rhinitis, Indications: Allergic Rhinitis, Reported [...] 3 Active Additional Information Patient taking differently:2 [place] Each Nostril Daily(AM),Indications: Allergic Rhinitis, Reported on [...] 4 Active LORazepam 1 MG Oral Tablet (Ativan)Indications :ETTA (generalized anxiety disorder) Take 1 Tablet by mouth 3 times a day as needed for Anxiety. 30 Tablet 4 Active Metoprolol Succinate ER 25 MG Oral Tablet Extended Release 24 Hour (toPROL XL)Indications:Esse ntial hypertension with goal blood pressure less than 140/90 Take 1 Tablet by mouth in the morning. 90 Tablet 3 4 Active LORazepam 1 MG Oral Tablet (Ativan)Indications :ETTA (generalized anxiety disorder) Take 1 Tablet (1 mg) by mouth 3 times a day as needed for Anxiety. 30 Tablet 4 10/18/19 24 Discontinu ed(Refill) Hospital, Clinic, or Other Facility Administered Medication Ordered Dose Route Frequency Start Date End Date Status Denosumab (Prolia) subcut inj 60 mgIndications:Senile osteoporosis 60 mg SC [id number] 03/04/2023 02/27/2024 Active documented as of this [...] encounter Miscellaneous Notes * Telephone Encounter - Phil Maldonado MD - 10/18/2023 3:46 PM EDTSigned Prescriptions: Disp Refills LORazepam 1 MG Oral Tablet (Ativan) 30 Tab*0 Sig: Take 1 Tablet by mouth 3 times a day as needed for Anxiety. Authorizing Provider: PHIL MALDONADO * Telephone Encounter - Izabela Huang [facility] - 10/18/2023 3:22 PM EDTPending Prescriptions: Disp Refills LORazepam 1 MG Oral Tablet (Ativan) 30 Tab*0 Sig: Take 1 Tablet by mouth 3 times a day as needed for Anxiety. * Telephone Encounter - Izabela Huang [facility] - 10/18/2023 3:22 PM EDT I have reviewed the patients controlled substance dispensing history in the Prescription Drug Monitoring Program in compliance with the [facility] regulations before prescribing a controlled substance. PDMP checked on 10/18/2023. Pending Prescriptions: Disp Refills LORazepam 1 MG Oral Tablet (Ativan) 30 Tab*0 Sig: Take 1 Tablet by mouth 3 times a day as needed for Anxiety. Last Visit: 08/11/2023 (in office), Visit date not found (telemedicine) Next Visit: 03/09/2024 Date medication was last filled: 07/08/23 Date medication is due for refill: 07/17/23 Pharmacy: [address] Is this request for a controlled substance? Yes and Urine Drug Screen Not completed Toxicology results: No results found. However, due to the size of the patient record, not all encounters were searched.Please check Results Review for a complete set of results. Please approve if appropriate. Thanks, Izabela Huang PharmD Clinical Pharmacist [facility] [phone] 10/18/2023 3:22 PM * Telephone Encounter - Sandy Blanco PHARM Tech - 10/18/2023 9:46 AM EDT Did you pend patient's preferred pharmacy and medication before forwarding?yes Pharmacy: [address] Pending Prescriptions: Disp Refills LORazepam 1 MG Oral Tablet (Ativan) 30 Tab*0 Sig: Take 1 Tablet by mouth 3 times a day as needed for Anxiety. Last Visit: 08/11/2023 (in office), Visit date not found (telemedicine) Next Visit: 03/09/2024 If no future appointments scheduled, and last appointment is greater than a year ago, please schedule patient for a follow-up appointment Last date the medication was ordered: 09/29/2023 Is this request for a controlled substance?Yes, What was the last refill date 09/29/2023 w/ quantity 30 and dosage 1mg and Urine Drug Screen Not completed Urine Drug Screen:No results found. However, due [...] Description 11/22/2023 10:40 AM EDT Anticoagulation Pharmacy, [facility] [address] [facility] [place] [address] [address] Pharmacist2, [facility] [address] [place] [address] 11/22/2023 12:00 PM EDT Office Visit Pulmonary Medicine, [facility] [address] [facility] [place] [address] Stanley Chavez MD [facility] [place] [address] 02/22/2024 11:15 AM EST Office Visit Dermatology [facility] [address] [place] [address] Phil Perez MD [address] [place] [address] 03/09/2024 11:20 AM EST Office Visit General Internal Medicine [facility] [address] [place] [address] Phil Maldonado MD [address] [place], [place] [address] 04/07/2024 11:30 AM EST Office Visit Nephrology, [place] [address] [facility] [place] [address] Gena Walton PA-C 200 [facility] [place] [address] 04/11/2024 1:00 PM EST Office Visit Rheumatology [facility] [address] [place] [address] Tristan Richards MD [address] [place], [place] [address] Health Maintenance Due Date Last Done Comments COVID-19 Vaccine ( season) 2023 01/27/2023, 03/18/2022, 01/23/2021, Additional history exists Depression Screening 07/22/2023 07/21/2022 DTaP,Tdap,and Td Vaccines (2 - Td or Tdap) 09/08/2023 09/07/2013, 02/17/2010, 10/18/2001, Additional history exists Influenza Vaccine (FLU shot) (#1) 2023 01/05/2023, 01/16/2022, 12/27/2020, Additional history exists GFR 02/24/2024 08/24/2023, 04/0 10/2023, 02/04/2023, Additional history exists CKD HGB USE SMARTSET 52745 07/04/202407/04, 07/05/2023, 02/04/2023, Additional history exists CKD PHOS USE SMARTSET 88264 08/10/202407/27, 08/25/2022, 06/26/2021, Additional history exists TSH 08/10/2024 08/11/2023, 04/0 10/2023, 02/04/2023, Additional history exists Albumin/Creatinine Ratio 08/11/2024 024, 08/26/2022, 06/30/2021, Additional history exists DXA Scan 10/04/2025 10/05/2023, 07/0 11/2023, 09/30/2021, Additional history exists Zoster Vaccines Discontinued 02/10/2007 Pneumococcal Vaccine: 65+ Years Completed 07/20/2014, 01/30/2008, 10/16/1994 VITAMIN D LEVEL ONCE IN A LIFETIME-USE SMARTSET# 68752 Completed 08/24/2023, 04/01/2023, 11/13/2022, Additional history exists HPV (Gardasil) Vaccine Aged Out No lo nger eligible based on patient's age to complete this topic MENINGOCOCCAL (MENACTRA/MENVEO) Aged Out No longer eligible based on patient's age to complete this topic documented as of this encounter Medical Devices Implanted Type Area Production Honing Machine Operator Device Identifier Shelf Expiration Date Model / Serial / Lot Lens Intraoc 22.0 - [id number] - [id number] Implanted:Qty: 1 on 07/01/2021 by Gee Hagen MD at OR [facility] Right: Eye [employer] 02/25/2026 [id number] / [id number] / [id number] Lens Intraoc 19.5 - [id number] - [id number] Implanted:Qty: 1 on 07/15/2021 by Gee Hagen MD at OR [facility] Left: Eye [employer]OM[employer] 02/25/2026 [id number] / [id number] / documented as of this encounter Visit Diagnoses Diagnosis ETTA (generalized anxiety disorder) Generalized anxiety disorder documented in this encounter Care Teams Associate Financial Representative Relationship Specialty Start Date End Date Phil Maldonado MD 200 [place] [address] PCP - General Internal Medicine 06/19/19 documented as of this encounter
--- OUTSIDE RECORDS SUMMARY | 2024-01-02 15:35 | External Medical Summary | Summary of Care ---
Author Name Unknown Organization [facility] Address [address] [place] [address] Phone [phone] Care Team Providers Care R Developer Name Role Phone Phil Maldonado MD Primary Care Provider + Reason for Visit * Reason Onset Date Comments Home Monitoring Alarm 10/20/2023 Encounter Details Date Type Department Care Team (Late st Contact Info) Description 10/20/2023 Home Monitoring Care Coordination [address] [place], [place] [id number] Lucie Cade, KELLE HTN, goal below 130/80*; Essential hypertension with goal blood pressure less than 140/90 Allergies Active Allergy Reactions Criticality Noted Date Comments Azithromycin Anaphylaxis High 08/11/2023 Sulfa Antibiotics Hives 10/29/1998 documented as of this encounter (statuses as of 10/20/2023) Medications Medication Sig Dispensed Refills Start Date [...] 30-600 MG Oral Tablet Extended Release 12 HourIndications:Surgery Assistant giuliana Cough Take 1 Tablet by [...] Additional Information Patient taking differently:75 mcg Oral [id number], AT LEAST 30 MINUTES PRIOR TO BREAKFAST OR OTHER MEDS,Indications: Hypothyroidism, Reported on 05/26/2023 Azelastine HCl 0.1 % Nasal Solution (Astelin) Administer 2 Sprays into nostril in the morning and 2 Sprays before bedtime. 90 mL 3 3 Active Additional Information Patient taking differently:2 Iselin NasalBID PRN, Rhinitis, Indications: Allergic Rhinitis, Reported [...] 3 Active Additional Information Patient taking differently:2 Iselin Each Nostril Daily(AM),Indications: Allergic Rhinitis, Reported on [...] inj 60 mgIndications:Senile osteoporosis 60 mg SC [id number] 03/04/2023 02/27/2024 Active documented as of this encounter (statuses as of 10/20/2023) Active Problems Problem Noted Date Diagnosed Date [...] as of this encounter (statuses as of 10/20/2023) Resolved Problems Problem Noted Date Diagnosed Date Resolved Date Mild persistent asthma without complication 04/05/2023 08/11/2023 Memory changes 12/16/2022 01/28/2023 Chronic kidney disease, stage 3a 08/06/2020 08/11/2023 Overview: Per CKD protocol Hypertensive kidney disease with stage 3a chronic kidney disease 02/05/2020 08/11/2023 Overview: Per CKD protocol ETTA (generalized anxiety disorder) 06/19/2019 06/19/2019 Pulmonary embolism 02/02/2019 Hypertensive kidney disease with chronic kidney disease [...] as of this encounter (statuses as of 10/20/2023) Immunizations Name Administration Dates Next Due COVID-19 [...] this encounter Progress Notes * Pancho Perez [facility] - 10/20/2023 10:29 AM EDT Pt dose of metoprolol increased on 10/18/23, no other changes at this time. Pancho Perez, PharmD, BCACP, [facility] Clinical Pharmacist 10/20/2023, 10:30 AM * Lucie Cade LPN - 10/20/2023 10:21 AM EDT Horacio Yeung [id number] Pt bp reading today was 141/67. There was no alarm on this reading, however, pt did sent text. "I feel lousy, like Im floating. On increased med. Cancelled activities today as I cant drive". Spoke with , who reports she is not feeling well d/t the increased of Metoprolol ER 25mg QAM. Thank you, Lucie documented in this encounter Plan of Treatment Upcoming Encounters Date Type Department Care Team (Late st Contact Info) Description 11/22/2023 10:40 AM EDT Anticoagulation Pharmacy, [facility] [address] [facility] [place] [address] Pharmacist2, [facility] [address] [facility] [place] [address] 11/22/2023 12:00 PM EDT Office Visit Pulmonary Medicine, [facility] [address] [facility] [place] [address] Stanley Chavez MD [address] [facility] [place] [address] 02/22/2024 11:15 AM EST Office Visit Dermatology [facility] [address] [place] [address] Phil Perez MD [address] [place] [address] 03/09/2024 11:20 AM EST Office Visit General Internal Medicine [facility] [address] [place] [address] Phil Maldonado MD 200 [place] [address] 04/07/2024 11:30 AM EST Office Visit Nephrology, [facility] 200 [place] [address] Gena Walton PA-C 200 [place] [address] 04/11/2024 1:00 PM EST Office Visit Rheumatology [place] [address] [address] [place], [place] [address] Tristan Richards MD [facility] [place] [address] Health Maintenance Due Date Last Done Comments COVID-19 Vaccine ( season) 2023 01/27/2023, 03/18/2022, 01/23/2021, Additional history exists Depression Screening 07/22/2023 07/21/2022 DTaP,Tdap,and Td Vaccines (2 - Td or Tdap) 09/08/2023 09/07/2013, 02/17/2010, 10/18/2001, Additional history exists Influenza Vaccine (FLU shot) (#1) 2023 01/05/2023, 01/16/2022, 12/27/2020, Additional history exists GFR 02/24/2024 08/24/2023, 04/0 10/2023, 02/04/2023, Additional history exists CKD HGB USE SMARTSET 95420 07/04/202407/04, 07/05/2023, 02/04/2023, Additional history exists CKD PHOS USE SMARTSET 52426 08/10/202407/27, 08/25/2022, 06/26/2021, Additional history exists TSH 08/10/2024 08/11/2023, 0 10/2023, 02/04/2023, Additional history exists Albumin/Creatinine Ratio 08/11/2024 024, 08/26/2022, 06/30/2021, Additional history exists DXA Scan 10/04/2025 10/05/2023, 11/2023, 09/30/2021, Additional history exists Zoster Vaccines Discontinued 02/10/2007 Pneumococcal Vaccine: 65+ Years Completed 07/20/2014, 01/30/2008, 10/16/1994 VITAMIN D LEVEL ONCE IN A LIFETIME-USE SMARTSET# 02103 Completed 08/24/2023, 04/01/2023, 11/13/2022, Additional history exists HPV (Gardasil) Vaccine Aged Out No lo nger eligible based on patient's age to complete this topic MENINGOCOCCAL (MENACTRA/MENVEO) Aged Out No longer eligible based on patient's age to complete this topic documented as of this encounter Medical Devices Implanted Type Area Jig Mill Operator Device Identifier Shelf Expiration Date Model / Serial / Lot Lens Intraoc 22.0 - [id number] - [id number] Implanted:Qty: 1 on 07/01/2021 by Gee Hagen MD at [facility] Right: Eye BAUSCH & LOMB 02/25/2026 [id number] / [id number] / [id number] Lens Intraoc 19.5 - [id number] - [id number] Implanted:Qty: 1 on 07/15/2021 by Gee Hagen MD at [facility] Left: Eye BAUSCH & LOMB 02/25/2026 [id number] / [id number] / documented as of this encounter Visit Diagnoses Diagnosis HTN, goal below 130/80- Primary Unspecified essential hypertension Essential hypertension with goal blood pressure less than 140/90 documented in this encounter Care Teams R Developer Relationship Specialty Start Date End Date Phil Maldonado MD [address] [place] [address] PCP - General Internal Medicine 06/19/19 documented as of this encounter
--- OUTSIDE RECORDS SUMMARY | 2024-01-02 15:35 | External Medical Summary | Summary of Care ---
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 90 mL 3 3 Active Additional Information Patient taking differently:2 [place] NasalBID PRN, Rhinitis, Indications: Allergic Rhinitis, Reported [...] 3 Active Additional Information Patient taking differently:2 [place] Each Nostril Daily(AM),Indications: Allergic Rhinitis, Reported on [...] inj 60 mgIndications:Senile osteoporosis 60 mg SC [id number] 03/04/2023 02/27/2024 Active documented as of this [...] IM, 12 yrs and above (Moderna) 03/18/2022 Diptheria/Tetanus (Adult) 02/27/1992 HEP A - Hepatitis A (Adult > 18 yrs) 05/06/2010 Hepatitis B Vaccine 10/16/1994 Pneumococcal Conjugate Vacc, 13 Valent (Prevnar) 07/20/2014 Pneumococcal Polysaccharide PPV23 (Pneumovax) 01/30/2008,10/16/1994 Seasonal Influenza Virus Vac cine, Unspecified Formulation 01/15/1998 Seasonal Influenza, PF, 6 M & above, IM , (FluLaval or Fluzone) 01/13/2017 Seasonal Influenza, Quadriva lent Hd (Fluzone Hd) 01/05/2023,01/16/2022,12/27/2020 Seasonal Influenza, Quadriva lent Hd, 65+ Yrs 12/30/2019 Seasonal Influenza, Quadriva lent, No Preserve, IM 02/04/2018,01/27/2016,02/12/2015 Seasonal Influenza, Split, I IV3, With Preserve, Inj 01/18/2014,02/06/2013,03/11/2012,01/09,01/08/2010,12/29/2008,01/30/2008 ,02/10/2007,02/24/2006,01/12/2005,12/28,01/19/2002,02/05/2000 Seasonal Influenza, Trivalen t, Adjuvanted, 65+ yrs 12/30/2018 TD - Tetanus/Diptheria (ADULT) 10/18/2001 TD, Preservative Free 02/17/2010 TDAP (age 10 [...] as of this encounter Progress Notes * Shelbie Hernandez MD - 10/21/2023 2:56 PM EDT Reasonable to start w/ BP goal <140/90 x 4-6 wks but goal longer term is <130/80 and she's been in this range already for some time (though not as much recently) >She may feel better in 140s but that's not appropriate for her care; she's been close to <130/80 goal and we should longer term try to move towards this b/c of her CKD, renal artery aneurysm; fine w/ moving towards goal slowly however >>>pls check accuracy of remote cuff > ? If reading high? In clinic 06/17/2023 06/21/2023 07/05/2023 08/11/2023 08/24/2023 09/22/2023 10/04/2023 BP AND WT. Systolic 110 122 110 120 110 128 118 Diastolic 50 68 58 56 56 60 72 At Home 10/05/23 09:09 10/06/23 10/07/23 09:45 10/08/23 09:26 10/12/23 09:08 10/13/23 09:26 10/14/23 09:34 Systolic BP 132 mm/Hg [1] 140 mm/Hg [1] 137 mm/Hg [1] 145 mm/Hg (H) [1] 136 mm/Hg [1] 130 mm/Hg [1]132 mm/Hg [1] Diastolic BP 63 mm/Hg [1] 59 mm/Hg [1] 74 mm/Hg [1] 65 mm/Hg [1] 63 mm/Hg [1] 65 mm/Hg [1] 54 mm/Hg[1] Pulse 70 bpm [1] 81 bpm [1] 75 bpm [1] 76 bpm [1] 74 bpm [1] 69 bpm [1] 75 bpm [1] MTM FYI Neph nurse pls call pt w/ above * Pancho Perez [facility] - 10/21/2023 9:47 AM EDT Patient Phone [...] QAM Pancho Perez, PharmD, BCACP, [facility] Clinical Pharmacist 10/21/2023, 9:48 AM * Lucie Cade LPN - 10/21/2023 9:42 AM EDT Horacio Yeung [phone] Pt bp this am was 111/55. There [...] 10:40 AM EDT Anticoagulation Pharmacy, [place] [place] [address] [place], [place] [address] Pharmacist2, [facility] [address] [place], [place] [address] 11/22/2023 12:00 PM EDT Office Visit Pulmonary Medicine, [facility] [address] [facility] [place] [address] Stanley Chavez MD [address] [facility] [address] 02/22/2024 11:15 AM EST Office Visit Dermatology [facility] [address] [place], [place] [address] Phil Perez MD [address] [facility] [place], [place] [address] 03/09/2024 11:20 AM EST Office Visit General Internal Medicine [facility] [address] [place], [place] [address] Phil Maldonado MD [address] [facility] [address] [place], [place] [address] 04/07/2024 11:30 AM EST Office Visit Nephrology, [facility] [address] [place], [place] [address] Gena Walton PAMari [address] [facility] [place], [place] [address] 04/11/2024 1:00 PM EST Office Visit Rheumatology [place] [address] [place], [place] [address] Tristan Richards MD [address] [place], [place] [address] Health Maintenance Due Date Last Done Comments COVID-19 Vaccine (2022-24 season) 2023 01/27/2023, 03/18/2022, 01/23/2021, Additional history exists Depression Screening 07/22/2023 07/21/2022 DTaP,Tdap,and Td Vaccines (2 - Td or Tdap) 09/08/2023 09/07/2013, 02/17/2010, 10/18/2001, Additional history exists Influenza Vaccine (FLU shot) (#1) 2023 01/05/2023, 01/16/2022, 12/27/2020, Additional history exists GFR 02/24/2024 08/24/2023, 04/0 10/2023, 02/04/2023, Additional history exists CKD HGB USE SMARTSET 24858 07/04/202407/04, 07/05/2023, 02/04/2023, Additional history exists CKD PHOS USE SMARTSET 29093 08/10/202407/27, 08/25/2022, 06/26/2021, Additional history exists TSH 08/10/2024 08/11/2023, 04/0 10/2023, 02/04/2023, Additional history exists Albumin/Creatinine Ratio 08/11/2024 024, 08/26/2022, 06/30/2021, Additional history exists DXA Scan 10/04/2025 10/05/2023, 070 11/2023, 09/30/2021, Additional history exists Zoster Vaccines Discontinued 02/10/2007 Pneumococcal Vaccine: 65+ Years Completed 07/20/2014, 01/30/2008, 10/16/1994 VITAMIN D LEVEL ONCE IN A LIFETIME-USE SMARTSET# 77574 Completed 08/24/2023, 04/01/2023, 11/13/2022, Additional history exists HPV (Gardasil) Vaccine Aged Out No lo nger eligible based on patient's age to complete this topic MENINGOCOCCAL (MENACTRA/MENVEO) Aged Out No longer eligible based on patient's age to complete this topic documented as of this encounter Medical Devices Implanted Type Area Inside Sales Lead Device Identifier Shelf Expiration Date Model / Serial / Lot Lens Intraoc 22.0 - [id number] - [id number] Implanted:Qty: 1 on 07/01/2021 by Gee Hagen MD at OR [facility] Right: Eye BAUSCH [employer] LOMB 02/25/2026 [id number] / [id number] / [id number] Lens Intraoc 19.5 - [id number] - [id number] Implanted:Qty: 1 on 07/15/2021 by Gee Hagen MD at OR [facility] Left: Eye BAUSCH & LOMB 02/25/2026 [id number] / [id number] / documented as of this encounter Visit Diagnoses Diagnosis Hypertensive kidney disease with stage 3b chronic kidney disease (HCC)- Primary Essential hypertension with goal blood pressure less than 140/90 documented in this encounter Care Teams Emu Farmer Relationship Specialty Start Date End Date Phil Maldonado MD [address] [place] [address] PCP - General Internal Medicine 06/19/19 documented as of this encounter
--- OUTSIDE RECORDS SUMMARY | 2024-01-02 15:35 | External Medical Summary | Summary of Care ---
Author Name Unknown Organization [facility] Address [address] [place] [address] Phone [phone] Care Team Providers Care Entrepreneur Name Role Phone Phil Maldonado MD Primary Care Provider + Reason for Visit * Reason Onset Date Comments Home Monitoring Alarm 10/18/2023 Encounter Details Date Type Department Care Team (Late st Contact Info) Description 10/18/2023 Home Monitoring Care Coordination [address] [place], [place] [phone] Lucie Cade, KELLE Essential hypertension with goal blood pressure less [...] MG Oral Tablet Extended Release 12 HourIndications:Director Patient giuliana Cough Take 1 Tablet by mouth [...] Additional Information Patient taking differently:75 mcg Oral [id number], AT LEAST 30 MINUTES PRIOR TO BREAKFAST OR OTHER MEDS,Indications: Hypothyroidism, Reported on 05/26/2023 Azelastine HCl 0.1 % Nasal Solution (Astelin) Administer 2 Sprays into nostril in the morning and 2 Sprays before bedtime. 90 mL 3 3 Active Additional Information Patient taking differently:2 [place] NasalBID PRN, Rhinitis, Indications: Allergic Rhinitis, Reported [...] 3 Active Additional Information Patient taking differently:2 [place] Each Nostril Daily(AM),Indications: Allergic Rhinitis, Reported on [...] THE MORNING 90 Tablet 1 4 Active Metoprolol Succinate ER 25 MG Oral Tablet Extended Release 24 Hour (toPROL XL)Indications:Essen tial hypertension with goal blood pressure less than 140/90 TAKE 1/2 TABLET EVERY MORNING 45 Tablet 1 4 Active Montelukast Sodium 10 MG Oral Tablet (Singulair)Indicatio ns:Asthma TAKE 1 TABLET BY MOUTH AT BEDTIME 90 Tablet 1 4 Active Allopurinol 100 MG Oral Tablet (Zyloprim)Indication s:Gout Prophylaxis Take 2 Tablets by mouth in the morning. 4 Active Trelegy Ellipta 100-62.5-25 MCG/ACT Aerosol Powder Breath Activated (Fluticasone-Umeclid inium-Vilanterol) Inhale 1 Puff by mouth in the morning. 60 Blister Dosing Unit 4 Active methylPREDNISolone 4 MG Oral Tablet Therapy Pack (Medrol Dosepack) follow package directions 21 Tablet 4 Active predniSONE 2.5 MG Oral Tablet (Deltasone) Take 1 Tablet by mouth in the morning. 30 Tablet 3 4 01/20/20 24 Active LORazepam 1 MG Oral Tablet (Ativan)Indications: ETTA (generalized anxiety disorder) Take 1 Tablet (1 mg) by mouth 3 times a day as needed for Anxiety. 30 Tablet 4 Active Hospital, Clinic, or Other Facility Administered Medication Ordered Dose Route Frequency Start Date End Date Status Denosumab (Prolia) subcut inj 60 mgIndications:Senile osteoporosis 60 mg SC [id number] 03/04/2023 02/27/2024 Active documented as of this encounter (statuses as of 10/18/2023) Active Problems Problem Noted Date Diagnosed Date Acute bronchiolitis, unspecified 09/22/2023 Hypertensive kidney disease [...] this encounter Progress Notes * Pancho Perez, [facility] - 10/18/2023 8:16 AM EDT Will be address at inperson visit today. Pancho Perez PharmD, BCACP, [facility] Clinical Pharmacist 10/18/2023, 8:16 AM * Lucie Cade LPN - 10/18/2023 8:14 AM EDT Horacio Yeung [phone] Horacio Yeung is currently participating in the [employer] Hypertension Management Program and had a reading on 10/17/23 of 126/54. Pt has alerted for an Average BP over 7 days >/= 130/80 . Parameters are currently set as follows: Average BP over 7 days >/= 130/80 Singular Systolic BP Reading </= 90 or >/=180 Singular Diastolic BP Reading </= 50 or >/=120 Patient is not reporting new symptoms or concerns. Please review the recent history of home [...] Team (Late st Contact Info) Description 10/18/2023 1:10 PM EDT Anticoagulation Pharmacy, [facility] [address] [facility] [place] [address] Pharmacist2, [facility] [address] [place] [address] 10/18/2023 3:20 PM EDT Telemedicine Pharmacy, [facility] [address] [facility] [place] [address] Pharmacist2, [facility] [address] [place] [address] 11/22/2023 12:00 PM EDT Office Visit Pulmonary Medicine, [facility] [address] [place] [address] Stanley Chavez MD [address] [place] [address] 02/22/2024 11:15 AM EST Office Visit Dermatology [facility] [address] [place], [place] [address] Phil Perez MD [address] [facility] [place], [place] [address] 03/09/2024 11:20 AM EST Office Visit General Internal Medicine [facility] [address] [facility] [place], [place] [address] Phil Maldonado MD 200 [place] [address] 04/07/2024 11:30 AM EST Office Visit Nephrology, [facility] [address] [facility] [place], [place] [address] ZemaitisGena PA-C [address] [facility] [place], [place] [address] 04/11/2024 1:00 PM EST Office Visit Rheumatology [address] [place], [place] [address] Tristan Richards MD [facility] [place] [address] Health Maintenance Due Date Last Done Comments COVID-19 Vaccine (2022- season) 2023 01/27/2023, 03/18/2022, 01/23/2021, Additional history exists Depression Screening 07/22/2023 07/21/2022 DTaP,Tdap,and Td Vaccines (2 - Td or Tdap) 09/08/2023 09/07/2013, 02/17/2010, 10/18/2001, Additional history exists Influenza Vaccine (FLU shot) (#1) 2023 01/05/2023, 01/16/2022, 12/27/2020, Additional history exists GFR 02/24/2024 08/24/2023, 04/0 10/2023, 02/04/2023, Additional history exists CKD HGB USE SMARTSET 30936 07/04/202407/04, 07/05/2023, 02/04/2023, Additional history exists CKD PHOS USE SMARTSET 00514 08/10/202407/27, 08/25/2022, 06/26/2021, Additional history exists TSH 08/10/2024 08/11/2023, 040 10/2023, 02/04/2023, Additional history exists Albumin/Creatinine Ratio 08/11/2024 024, 08/26/2022, 06/30/2021, Additional history exists DXA Scan 10/04/2025 10/05/2023, 07/0 11/2023, 09/30/2021, Additional history exists Zoster Vaccines Discontinued 02/10/2007 Pneumococcal Vaccine: 65+ Years Completed 07/20/2014, 01/30/2008, 10/16/1994 VITAMIN D LEVEL ONCE IN A LIFETIME-USE SMARTSET# 15704 Completed 08/24/2023, 04/01/2023, 11/13/2022, Additional history exists HPV (Gardasil) Vaccine Aged Out No lo nger eligible based on patient's age to complete this topic MENINGOCOCCAL (MENACTRA/MENVEO) Aged Out No longer eligible based on patient's age to complete this topic documented as of this encounter Medical Devices Implanted Type Area Extension Forester Device Identifier Shelf Expiration Date Model / Serial / Lot Lens Intraoc 22.0 - [id number] - [id number] Implanted:Qty: 1 on 07/01/2021 by Gee Hagen MD at [facility] Right: Eye BAUSCH [employer] LOMB 02/25/2026 [id number] / [id number] / [id number] Lens Intraoc 19.5 - [id number] - [id number] Implanted:Qty: 1 on 07/15/2021 by Gee Hagen MD at OR [facility] Left: Eye BAUSCH & LOMB 02/25/2026 [id number] / [id number] / documented as of this encounter Visit Diagnoses Diagnosis Essential hypertension with goal blood pressure less than 140/90- Primary documented in this encounter Care Teams Entrepreneur Relationship Specialty Start Date End Date Phil Maldonado MD [address] [place] [address] PCP - General Internal Medicine 06/19/19 documented as of this encounter
--- OUTSIDE RECORDS SUMMARY | 2024-01-02 15:35 | External Medical Summary | Summary of Care ---
Author Name Unknown Organization [facility] Address [address] [place] [address] Phone [phone] Care Team Providers Care Tester Printed Circuit Boards Name Role Phone Phil Maldonado MD Primary Care Provider + Reason for Visit * Reason Comments Dosage Adjustment In Person (Anticoag Cl inic) Encounter Details Date Type Department Care Team (Latest Contact Info) Description 10/18/2023 1:10 PM EDT Anticoagulation Pharmacy, [facility] [address] [place] [address] Pharmacist2, [facility] [address] [place] [address] Anticoagulation management encounter*; History of pulmonary embolism [...] Additional Information Patient taking differently:75 mcg Oral [id number], AT LEAST 30 MINUTES PRIOR TO BREAKFAST OR OTHER MEDS,Indications: Hypothyroidism, Reported on 05/26/2023 Azelastine HCl 0.1 % Nasal Solution (Astelin) Administer 2 Sprays into nostril in the morning and 2 Sprays before bedtime. 90 mL 3 01/15/20 Active Additional Information Patient taking differently:2 [place] NasalBID PRN, Rhinitis, Indications: Allergic Rhinitis, Reported [...] 02/10/20 Active Additional Information Patient taking differently:2 [place] Each Nostril Daily(AM),Indications: Allergic Rhinitis, Reported on [...] mouth in the morning. 08/11/19 24 Active Trelegy Ellipta 100-62.5-25 MCG/ACT Aerosol Powder Breath Activated (Fluticasone-Umecli dinium-Vilanterol) Inhale 1 Puff by mouth in the morning. 60 Blister Dosing Unit 09/02/19 24 Active methylPREDNISolone 4 MG Oral Tablet [...] inj 60 mgIndications:Senile osteoporosis 60 mg SC [id number] 03/04/2023 02/27/2024 Active documented as of this [...] this encounter Progress Notes * Pancho Perez RPh - 10/18/2023 1:14 PM EDT Images from the original note were not included. Medication Therapy Disease Management - Anticoagulation Patient: Horacio Yeung | : 1940 Subjective Patient-Reported Symptoms: Patient Findings Negatives: Signs/symptoms of thrombosis, Signs/symptoms of bleeding, Change in health, Change in alcohol use, Change in activity, Upcoming invasive procedure, Missed doses, Extra doses, Change in medications, Change in diet/appetite, Bruising Objective Current Warfarin Dose As of 10/18/2023 Warfarin maintenance plan: 1.25 mg (2.5 mg x 0.5) every Mon, Adrianna; 2.5 mg (2.5 mg x 1) all other days INR Result As of 10/18/2023 INR goal: 2.0-3.0 INR used for dosin.1 (10/18/2023) Assessment & Plan Warfarin Plan As of 10/18/2023 Full warfarin instructions: 1.25 mg every Mon, Adrianna; 2.5 mg all other days No change documented: Pancho Perez RPh Next INR check: 11/22/2023 Repeat PT/INR in 5 week(s) Weekly dose: not changed Additional Dosing Information: Pancho Perez jaymie Clinical Pharmacist 10/18/2023, 1:14 PM documented in this encounter Plan of Treatment Upcoming Encounters Date Type Department Care Team (Latest Contact Info) Description 10/18/2023 3:20 PM EDT Telemedicine Pharmacy, [facility] [address] [place] [address] Pharmacist2, [facility] [address] [place] [address] Essential hypertension with goal blood pressure less than 140/90* 11/22/2023 10:40 AM EDT Anticoagulation Pharmacy, [facility] [place] [address] [place] [address] Pharmacist2, [facility] [address] [facility] [place], [place] [address] 11/22/2023 12:00 PM EDT Office Visit Pulmonary Medicine, [facility] [address] [facility] [place] [address] [facility] Chavez [facility] [address] [facility] [address] 02/22/2024 11:15 AM EST Office Visit Dermatology [facility] [address] [place], [place] [address] Phil Perez MD [address] [facility] [place], [place] [address] 03/09/2024 11:20 AM EST Office Visit General Internal Medicine [facility] [address] [place], [place] [address] Phil Maldonado MD 200 [facility] [place], [place] [address] 04/07/2024 11:30 AM EST Office Visit Nephrology, [facility] [address] [facility] [place], [place] [address] Gena Walton PA-C [address] [facility] [place], [place] [address] 04/11/2024 1:00 PM EST Office Visit Rheumatology [place] [id number] [employer] [place], [place] [address] Tristan Richards MD [address] [place], [place] [address] Health Maintenance Due Date Last Done Comments COVID-19 Vaccine (2022-24 season) 2023 01/27/2023, 03/18/2022, 01/23/2021, Additional history exists Depression Screening 07/22/2023 07/21/2022 DTaP,Tdap,and Td Vaccines (2 - Td or Tdap) 09/08/2023 09/07/2013, 02/17/2010, 10/18/2001, Additional history exists Influenza Vaccine (FLU shot) (#1) 2023 01/05/2023, 01/16/2022, 12/27/2020, Additional history exists GFR 02/24/2024 08/24/2023, 04/0 10/2023, 02/04/2023, Additional history exists CKD HGB USE SMARTSET 96697 07/04/202407/04, 07/05/2023, 02/04/2023, Additional history exists CKD PHOS USE SMARTSET 79356 08/10/202407/27, 08/25/2022, 06/26/2021, Additional history exists TSH 08/10/2024 08/11/2023, 04/0 10/2023, 02/04/2023, Additional history exists Albumin/Creatinine Ratio 08/11/2024 024, 08/26/2022, 06/30/2021, Additional history exists DXA Scan 10/04/2025 10/05/2023, 070 11/2023, 09/30/2021, Additional history exists Zoster Vaccines Discontinued 02/10/2007 Pneumococcal Vaccine: 65+ Years Completed 07/20/2014, 01/30/2008, 10/16/1994 VITAMIN D LEVEL ONCE IN A LIFETIME-USE SMARTSET# [id number] Completed 08/24/2023, 04/01/2023, 11/13/2022, Additional history exists HPV (Gardasil) Vaccine Aged Out No lo nger eligible based on patient's age to complete this topic MENINGOCOCCAL (MENACTRA/MENVEO) Aged Out No longer eligible based on patient's age to complete this topic documented as of this encounter Medical Devices Implanted Type Area Warehouse Shipping Receiving Clerk Device Identifier Shelf Expiration Date Model / Serial / Lot Lens Intraoc 22.0 - [id number] - [id number] Implanted:Qty: 1 on 07/01/2021 by Gee Hagen MD at OR [facility] Right: Eye BAUSCH [employer] LOMB 02/25/2026 [id number] / [id number] Lens Intraoc 19.5 - [id number] - [id number] Implanted:Qty: 1 on 07/15/2021 by Gee Hagen MD at [facility] Left: Eye BAUSCH & LOMB 02/25/2026 [id number] / [id number] / documented as of this encounter Procedures Procedure Name Priority Date/Time Associated Diagnosis Comments INR FINGERSTICK, POINT OF CARE STAT 10/18/2023 1:17 PM EDT History of pulmonary embolism Anticoagulation management encounter documented in this encounter Results * INR FINGERSTICK, POINT OF CARE (10/18/2023 1:17 PM EDT) Fingerstick INR 3.1 INR 1:19 PM EDT [facility] 56- Blood 10/18/2023 1:17 PM EDT 10/18/2023 1:19 PM EDT Narrative [facility] 56-02 - 10/18/2023 1:19 PM EDT Therapeutic ranges for non-operative patients: Prophylaxsis/treatment of DVT: (Range:2.0-3.0) Treatment of pulmonary embolism:(Range:2.0-3.0) Prevention of systemic embolism from: -tissue heart valves -acute myocardial infarction -valvular heart disease -atrial fibrillation (Range: 2.0-3.0) Mechanical prosthetic valves: (Range: 2.5-3.5) Pancho Perez [facility] POINT O F CARE TEST DOCKED DEVICE UNSOLICITED RESULTS [facility] 56 [address] [facility] [place] [phone] documented in this encounter Visit Diagnoses Diagnosis Anticoagulation management encounter- Primary Encounter for therapeutic drug monitoring History of pulmonary embolism Personal history of pulmonary embolism Essential hypertension with goal blood pressure less than 140/90- Primary documented in this encounter Care Teams Tester Printed Circuit Boards Relationship Specialty Start Date End Date Phil Maldonado MD [address] [facility] [place] [address] PCP - General Internal Medicine 06/19/19 documented as of this encounter"
--- OUTSIDE RECORDS SUMMARY | 2024-01-02 15:35 | External Medical Summary | Summary of Care ---
Author Name Unknown Organization [facility] Address [address] [place] [address] Phone [phone] Care Team Providers Care Battery Mechanic Name Role Phone Phil Maldonado MD Primary Care Provider + Reason for Visit * Reason Onset Date Comments Home Monitoring Orders Only 07/21/2022 Encounter Details Date Type Department Care Team (Late st Contact Info) Description 07/21/2022 Home Monitoring Nephrology, [facility] [address] [place] [address] Shelbie Hernandez MD [address] [place] [address] Essential hypertension with goal blood pressure less than 140/90* Allergies Active Allergy Reactions Criticality Noted Date Comments Azithromycin Anaphylaxis High 08/11/2023 Sulfa Antibiotics Hives 10/29/1998 documented as of this encounter (statuses as of 10/26/2023) Medications Medication Sig Dispensed Refills Start Date [...] the skin every 6 months. 1 Each 11/10/20 20 Active Acetaminophen 500 MG Oral Tablet (Tylenol)Indicatio [...] (1000 UT) Oral CapsuleIndications :Nutritional Support 05/12/19 23 Active VITAMIN D 400 UNIT PO CAPS 1 capsule daily 0 0 01/30/20 08 023 Discontinued(Govind vazquez preference/disc ontinuation) Fluticasone Propionate 50 MCG/ACT Nasal Suspension Administer 2 Sprays into each nostril daily. 16 g 2 02/08/20 21 023 Discontinued(Re fill) PARoxetine HCl 30 MG Oral Tablet (Paxil)Indications :Generalized anxiety disorder TAKE 1 TABLET BY MOUTH ONCE DAILY IN THE MORNING 90 Tablet 3 10/18/19 22 023 Discontinued Metoprolol Succinate ER 25 MG Oral Tablet Extended Release 24 Hour (toPROL XL)Indications:Ess ential hypertension with goal blood pressure less than 140/90 TAKE 1/2 TABLET EVERY MORNING 45 Tablet 3 10/18/19 22 023 Discontinued Warfarin Sodium 2.5 MG Oral Tablet (Coumadin)Indicati ons:takes in the evening Take 1 tablet daily Or as directed by coag clinic 90 Tablet 3 12/23/19 22 023 Discontinued Pravastatin Sodium 10 MG Oral Tablet (Pravachol)Indicat ions:Dyslipidemia TAKE 1 TABLET BY MOUTH AT BEDTIME 90 Tablet 3 02/14/20 22 023 Discontinued Levocetirizine Dihydrochloride 5 MG Oral Tablet Take 1 Tablet (5 mg) by mouth every evening. 90 Tablet 3 02/17/20 22 023 Discontinued(Re fill) Lisinopril-hydroCH LOROthiazide 20-12.5 MG Oral TabletIndications: HTN, goal below 130/80,CKD (chronic kidney disease) stage 3, GFR 30-59 ml/min (HCC) Take 2 Tablets by mouth in the morning. 90 Tablet 11 03/03/20 22 023 Discontinued(Ad verse reaction) Allopurinol 100 MG Oral Tablet (Zyloprim) TAKE TWO TABLETS BY MOUTH EVERY MORNING 56 Tablet 11 03/12/20 22 023 Discontinued(Re fill) Lidocaine 5 % External Patch (Lidoderm) Place 1 Patch topically on the skin daily. 30 Patch 04/20/19 23 023 Discontinued Benzonatate 100 MG Oral Capsule Take 1 Capsule by mouth 3 times a day as needed for Cough. 30 Capsule 1 05/04/19 23 023 Discontinued Dulera 200-5 MCG/ACT Inhalation Aerosol (Mometasone-Formot belia) INHALE 2 PUFFS TWICE DAILY. RINSE MOUTH AFTER EACH USE. 13 g 5 05/05/19 23 023 Discontinued(Me dication/Dose Changed) Ventolin HFA 108 (90 Base) MCG/ACT Inhalation Aerosol SolutionIndication s:Moderate persistent asthma without complication Inhale 2 Puffs by mouth in the morning and 2 Puffs at noon and 2 Puffs in the evening and 2 Puffs before bedtime. 18 g 3 05/12/19 23 023 Discontinued LORazepam 1 MG Oral Tablet (Ativan)Indication s:ETTA (generalized anxiety disorder) Take 1 Tablet (1 mg) by mouth 3 times a day as needed for Anxiety. 30 Tablet 05/31/19 23 023 Discontinued Spironolactone 25 MG Oral Tablet (Aldactone) Take 1 Tablet by mouth in the morning. 30 Tablet 6 07/02/19 23 023 Discontinued Montelukast Sodium 10 MG Oral Tablet (Singulair)Indicat ions:Asthma Take 1 Tablet by mouth at bedtime. 60 Tablet 5 07/08/19 23 023 Discontinued(Re fill) Levothyroxine Sodium 75 MCG Oral Tablet (Levoxyl)Indicatio ns:Hypothyroidism due to acquired atrophy of thyroid Take 1 tablet by mouth in the morning at least 30 minutes prior to breakfast and other medications 30 Tablet 5 07/15/19 23 023 Discontinued Nystatin 245107 UNIT/ML Mouth/Throat Suspension Swish and swallow 5 mL in the morning and 5 mL at noon and 5 mL in the evening and 5 mL before bedtime. Retain in mouth for several minutes before swallowing.. 135 mL 07/14/19 023 Discontinued methylPREDNISolone 4 MG Oral Tablet Therapy Pack Take 1 Tablet by mouth. follow package directions 023 Discontinued documented as of this encounter (statuses as of 10/26/2023) Active Problems Problem Noted Date Diagnosed Date [...] as of this encounter (statuses as of 10/26/2023) Resolved Problems Problem Noted Date Diagnosed Date [...] as of this encounter (statuses as of 10/26/2023) Immunizations Name Administration Dates Next Due COVID-19 [...] as of this encounter Progress Notes * Aileen Snider RN - 07/21/2022 3:16 PM EDT Patient has been successfully enrolled to the [place] [address] Hypertension Management program and provided with Bluetooth Connected Blood Pressure Cuff to facilitate their participation in remote monitoring. Standard alarm settings have been set as follows: Average BP over 7 days > 130/80 Singular Systolic BP Reading < 90 or > 180 Singular Diastolic BP Reading <50 or > 120 Patient has been advised to take blood pressure daily. Patient has been oriented to remote patient monitoring, assisted with initial device set-up, and provided with instruction and education regarding the program. Patient understands that this monitoring should not be used as a replacement for emergency and/or urgent care. If patient experiences any urgent symptoms, they are aware to call office/clerical production worker provider for additional instructions. In emergency situations, they will report directly to the ED for further evaluation. Referral has been placed to [facility] Pharmacist for participation per protocol. If you would like to customize the alert parameters and/or instructions for this patient, please let me know and we can have them changed. documented in this encounter Plan of Treatment Upcoming Encounters Date Type Department Care Team (Late st Contact Info) Description 11/22/2023 10:40 AM EDT Anticoagulation Pharmacy, [facility] [address] [facility] [place] [address] Pharmacist2, [facility] [address] [place] [address] 11/22/2023 12:00 PM EDT Office Visit Pulmonary Medicine, [facility] [address] [facility] [place] [address] [facility] [address] [facility] [address] 02/22/2024 11:15 AM EST Office Visit Dermatology [facility] [address] [place] [address] Phil Perez MD [facility] [place] [address] 03/09/2024 11:20 AM EST Office Visit General Internal Medicine [facility] [address] [place] [address] Phil Maldonado MD [address] [place] [address] 04/07/2024 11:30 AM EST Office Visit Nephrology, [facility] [address] [place] [address] Gena Walton PA-C [address] [place] [address] 04/11/2024 1:00 PM EST Office Visit Rheumatology [place] [address] [facility] [place] [address] Tristan Richards MD [address] [place] [address] Health Maintenance Due Date Last Done Comments COVID-19 Vaccine ( season) 2023 01/27/2023, 03/18/2022, 01/23/2021, Additional history exists Depression Screening 07/22/2023 07/21/2022 DTaP,Tdap,and Td Vaccines (2 - Td or Tdap) 09/08/2023 09/07/2013, 02/17/2010, 10/18/2001, Additional history exists Influenza Vaccine (FLU shot) (#1) 2023 01/05/2023, 01/16/2022, 12/27/2020, Additional history exists GFR 02/24/2024 08/24/2023, 0 10/2023, 02/04/2023, Additional history exists CKD HGB USE SMARTSET 61523 07/04/202407/04, 07/05/2023, 02/04/2023, Additional history exists CKD PHOS USE SMARTSET 64145 08/10/202407/27, 08/25/2022, 06/26/2021, Additional history exists TSH 08/10/2024 08/11/2023, 04/0 10/2023, 02/04/2023, Additional history exists Albumin/Creatinine Ratio 08/11/2024 024, 08/26/2022, 06/30/2021, Additional history exists DXA Scan 10/04/2025 10/05/2023, 0 11/2023, 09/30/2021, Additional history exists Zoster Vaccines Discontinued 02/10/2007 Pneumococcal Vaccine: 65+ Years Completed 07/20/2014, 01/30/2008, 10/16/1994 VITAMIN D LEVEL ONCE IN A LIFETIME-USE SMARTSET# [id number] Completed 08/24/2023, 04/01/2023, 11/13/2022, Additional history exists HPV (Gardasil) Vaccine Aged Out No lo nger eligible based on patient's age to complete this topic MENINGOCOCCAL (MENACTRA/MENVEO) Aged Out No longer eligible based on patient's age to complete this topic documented as of this encounter Medical Devices Implanted Type Area Fruit Harvester Machine Operator Device Identifier Shelf Expiration Date Model / Serial / Lot Lens Intraoc 22.0 - [id number] - [id number] Implanted:Qty: 1 on 07/01/2021 by Gee Hagen MD at OR [facility] Right: Eye [employer]CH [employer] LOMB 02/25/2026 [id number] / [id number] / [id number] Lens Intraoc 19.5 - [id number] - [id number] Implanted:Qty: 1 on 07/15/2021 by Gee Hagen MD at OR [facility] Left: Eye BAUSCH & LOMB 02/25/2026 [id number] / [id number] / documented as of this encounter Visit Diagnoses Diagnosis Essential hypertension with goal blood pressure less than 140/90- Primary documented in this encounter Care Teams Battery Mechanic Relationship Specialty Start Date End Date Phil Maldonado MD [address] [place] [address] PCP - General Internal Medicine 06/19/19 documented as of this encounter
--- OUTSIDE RECORDS SUMMARY | 2024-01-02 15:36 | External Medical Summary | Summary of Care ---
Author Name Unknown Organization [facility] Address [address] [place] [address] Phone [phone] Care Team Providers Care Radiology Nurse Name Role Phone Phil Maldonado MD Primary Care Provider + Reason for Visit * Reason Onset Date Comments Medication Update 07/09/2023 Encounter Details Date Type Department Care Team (Late st Contact Info) Description 07/09/2023 Telephone General Internal Medicine [facility] [address] [place] [address] Phil Maldonado MD [address] [place] [address] Medication Update Allergies Active Allergy Reactions Criticality Noted Date Comments Azithromycin Anaphylaxis High 08/11/2023 Sulfa Antibiotics Hives 10/29/1998 documented as of this encounter (statuses as of 10/08/2023) Medications Medication Sig Dispensed Refills Start Date [...] Oral CapsuleIndications :Nutritional Support 05/12/19 23 Active Famotidine 20 MG [...] chew 40 Tablet 2 12/04/19 23 Active Albuterol Sulfate HFA 108 (90 Base) MCG/ACT Inhalation Aerosol SolutionIndication s:Moderate persistent asthma without complication Inhale 2 Puffs by mouth every 6 hours as needed for Shortness of Breath. 18 g 5 12/17/19 23 Active Additional Information Patient taking differently:2 Puff [...] Additional Information Patient taking differently:75 mcg Oral [id number], AT LEAST 30 MINUTES PRIOR TO BREAKFAST OR OTHER MEDS,Indications: Hypothyroidism, Reported on 05/26/2023 Azelastine HCl 0.1 % Nasal Solution (Astelin) Administer 2 Sprays into nostril in the morning and 2 Sprays before bedtime. 90 mL 3 01/15/20 Active Additional Information Patient taking differently:2 [place] NasalBID PRN, Rhinitis, Indications: Allergic Rhinitis, Reported [...] 23 Active Additional Information Patient taking differently:2 [place] Each Nostril Daily(AM),Indications: Allergic Rhinitis, Reported on [...] DAILY IN THE MORNING 90 Tablet 1 02/18/20 23 024 Discontinued Metoprolol Succinate ER 25 MG Oral Tablet Extended Release 24 Hour (toPROL XL)Indications:Ess ential hypertension with goal blood pressure less than 140/90 TAKE 1/2 TABLET EVERY MORNING 45 Tablet 1 02/18/20 23 024 Discontinued Montelukast Sodium 10 MG Oral Tablet (Singulair)Indicat ions:Asthma Take 1 Tablet by mouth at bedtime. 90 Tablet 1 03/17/20 23 024 Discontinued Allopurinol 100 MG Oral Tablet (Zyloprim) TAKE TWO TABLETS BY MOUTH EVERY MORNING 180 Tablet 3 03/19/20 23 024 Discontinued(Re fill) hydroCHLOROthiazid e 12.5 MG Oral TabletIndications: Essential hypertension with goal blood pressure less than 140/90 TAKE 2 TABLETS BY MOUTH AT BEDTIME 180 Tablet 3 06/15/19 24 024 Discontinued(Re fill) Trelegy Ellipta 100-62.5-25 MCG/ACT Aerosol Powder Breath Activated (Fluticasone-Umecl idinium-Vilanterol ) Inhale 1 Puff by mouth in the morning. 60 Blister Dosing Unit 06/21/19 24 024 Discontinued(Re fill) Nitrofurantoin Monohyd Macro 100 MG Oral Capsule (Macrobid) Take 1 Capsule by mouth in the morning and 1 Capsule before bedtime. Do all this for 5 days. With food until gone. 10 Capsule 07/05/19 24 024 Discontinued(Govind vazquez preference/disc ontinuation) LORazepam 1 MG Oral Tablet (Ativan)Indication s:ETTA (generalized anxiety disorder) Take 1 Tablet (1 mg) by mouth 3 times a day as needed for Anxiety. 30 Tablet 07/08/19 24 024 Discontinued hydroCHLOROthiazid e 12.5 MG Oral TabletIndications: Essential hypertension with goal blood pressure less than 140/90 Take 1 Tablet by mouth at bedtime. 90 Tablet 3 07/09/19 24 024 Discontinued(Govind vazquez preference/disc ontinuation) Hospital, Clinic, or Other Facility Administered Medication Ordered Dose Route Frequency Start Date End Date Status Denosumab (Prolia) subcut inj 60 mgIndications:Senile osteoporosis 60 mg SC [id number] 03/04/2023 02/27/2024 Active documented as of this encounter (statuses as of 10/08/2023) Active Problems Problem Noted Date Diagnosed Date [...] as of this encounter (statuses as of 10/08/2023) Resolved Problems Problem Noted Date Diagnosed Date [...] as of this encounter (statuses as of 10/08/2023) Immunizations Name Administration Dates Next Due COVID-19 [...] Telephone Encounter - Phil Maldonado MD - 07/14/2023 8:29 AM EDT Bp check 2 weeks * Telephone Encounter - Boris Chisholm RN - 07/14/2023 6:53 AM EDT Images from the original note were not included. Please see the patient's message. Thank you! Provider to address: MyG Reason for Call: Medication Update Contact: [facility] Contact Type: Information Outcome: See above Face to face time spent with Patient (minutes): 0 Total Time including non face to face (minutes): 10 Boris Chisholm RN BSN [facility] Primary Care Nurse Coordinator [facility] (Helping out) * Telephone Encounter - Boris Chisholm RN - 07/12/2023 11:12 AM EDT Images from the original note were not included. Please see the patient's message. Thank you! Provider to address: MyG Reason for Call: Medication Update Contact: [facility] Contact Type: Advice Outcome: See above Face to face time spent with Patient (minutes): 0 Total Time including non face to face (minutes): 10 Boris SAMANO Primary Care Nurse Coordinator [facility] (Helping out) * Telephone Encounter - Boris Chisholm RN - 07/12/2023 11:00 AM EDT Message sent via [employer]. Provider to address: n/a Reason for Call: Medication Update Contact: [facility] Contact Type: Follow-up Outcome: See above Face to face time spent with Patient (minutes): 0 Total Time including non face to face (minutes): 10 Boris DE LUNA [facility] Primary Care Nurse Coordinator [facility] (Helping out) * Telephone Encounter - Phil Maldonado MD - 07/09/2023 1:14 PM EDT I sent script, BUT, she is already getting 25 mg of hctz in the am with the lisinopril. Was there areason she was told to add a night time dose of hctz? If not, we could consider stopping nighttime hctz all together and do bp check 2 weeks. Watch for increasing edema/weight. Let me know * Telephone Encounter - Carey Blanchard business machines teacher - 07/09/2023 12:52 PM EDT Pharmacy calling in because the patient told them that the HCTZ 12.5mg was changed to one tablet bymouth at bedtime. According to notes from 07/05, she is supposed to be taking one at bedtime. Please send in a new prescription when possible. Carey Chavez Master Machinist [facility] [address] [place] [address] 07/09/2023 12:53 PM documented in this encounter Plan of Treatment Upcoming Encounters Date Type Department Care Team (Late st Contact Info) Description 10/18/2023 1:10 PM EDT Anticoagulation Pharmacy, [facility] [address] [facility] [place] [place] [place] [address] Pharmacist2, [facility] [address] [place] [address] 11/22/2023 12:00 PM EDT Office Visit Pulmonary Medicine, [facility] [address] [facility] [place] [address] Stanley Chavez MD [address] [place] [facility] [place] [address] 02/22/2024 11:15 AM EST Office Visit Dermatology [facility] [address] [place] [address] Phil Perez MD [address] [facility] [address] [place], [place] [address] 03/09/2024 11:20 AM EST Office Visit General Internal Medicine [facility] [place] [address] [employer], [place] [address] Phil Maldonado MD [address] [place], [place] [address] 04/07/2024 11:30 AM EST Office Visit Nephrology, [facility] [address] [place], [place] [address] ZemaGena aranda PA-C [address] [facility] [place], [place] [address] 04/11/2024 1:00 PM EST Office Visit Rheumatology [place] [id number] [employer] [employer], [place] [address] Tristan Richards MD [address] [place], [place] [address] Health Maintenance Due Date Last Done Comments COVID-19 Vaccine (6 season) 2023 01/27/2023, 03/18/2022, 01/23/2021, Additional history exists Depression Screening 07/22/2023 07/21/2022 DTaP,Tdap,and Td Vaccines (2 - Td or Tdap) 09/08/2023 09/07/2013, 02/17/2010, 10/18/2001, Additional history exists Influenza Vaccine (FLU shot) (#1) 2023 01/05/2023, 01/16/2022, 12/27/2020, Additional history exists GFR 02/24/2024 08/24/2023, 04/0 10/2023, 02/04/2023, Additional history exists CKD HGB USE SMARTSET 32353 07/04/202407/04, 07/05/2023, 02/04/2023, Additional history exists CKD PHOS USE SMARTSET 10508 08/10/20241 07/2023, 08/25/2022, 06/26/2021, Additional history exists TSH 08/10/2024 08/11/2023, 04/0 10/2023, 02/04/2023, Additional history exists Albumin/Creatinine Ratio 08/11/2024 024, 08/26/2022, 06/30/2021, Additional history exists DXA Scan 10/04/2025 10/05/2023, 07/0 07/2021, 09/30/2021, Additional history exists Zoster Vaccines Discontinued 02/10/2007 Pneumococcal Vaccine: 65+ Years Completed 07/20/2014, 01/30/2008, 10/16/1994 VITAMIN D LEVEL ONCE IN A LIFETIME-USE SMARTSET# [id number] Completed 08/24/2023, 04/01/2023, 11/13/2022, Additional history exists HPV (Gardasil) Vaccine Aged Out No lo nger eligible based on patient's age to complete this topic MENINGOCOCCAL (MENACTRA/MENVEO) Aged Out No longer eligible based on patient's age to complete this topic documented as of this encounter Medical Devices Implanted Type Area Director [employer] Device Identifier Shelf Expiration Date Model / Serial / Lot Lens Intraoc 22.0 - [id number] - [id number] Implanted:Qty: 1 on 07/01/2021 by Gee Hagen MD at OR [facility] Right: Eye [employer]OM[employer] 02/25/2026 [id number] / [id number] / [id number] Lens Intraoc 19.5 - [id number] - [id number] Implanted:Qty: 1 on 07/15/2021 by Gee Hagen MD at OR [facility] Left: Eye BAUSCH [employer] LOMB 02/25/2026 [id number] / [id number] / documented as of this encounter Visit Diagnoses Diagnosis Essential hypertension with goal blood pressure less than 140/90 documented in this encounter Care Teams Radiology Nurse Relationship Specialty Start Date End Date Phil Maldonado MD [address] [place] [address] PCP - General Internal Medicine 06/19/19 documented as of this encounter
--- OUTSIDE RECORDS SUMMARY | 2024-01-02 15:36 | External Medical Summary | Summary of Care ---
Author Name Unknown Organization [facility] Address [address] [place] [address] Phone [phone] Care Team Providers Care Client Director Name Role Phone Phil Maldonado MD Primary Care Provider + Reason for Referral * Precert (Within 24 hrs (call dept; emergent)) - Pending Review Specialty Diagnoses / Procedures Referred By Petty walden Referred To Contact Radiology Diagnoses Renal artery aneurysm (HCC) Procedures CT ABD/PELVIS WO IV/ORAL CONTRAST Gena Walton PA-C [address] [place] [address] Referral ID Status Reason Start Date Expiration Date V isits Requested Visits Authorized [id number] Pending Review 10/04/2023 999 999 Reason for Visit * Reason Onset Date Comments Order Request 10/04/2023 Encounter Details Date Type Department Care Team (Late st Contact Info) Description 10/04/2023 Telephone NephrologyJed [address] [place] [address] Gena Walton PA-C [address] [facility] [place] [id number] Order Request Allergies Active Allergy Reactions Criticality Noted Date Comments Azithromycin Anaphylaxis High 08/11/2023 Sulfa Antibiotics Hives 10/29/1998 documented as of this encounter (statuses as of 10/05/2023) Medications Medication Sig Dispensed Refills Start Date [...] 30-600 MG Oral Tablet Extended Release 12 HourIndications:Hand Plate Stacker giuliana Cough Take 1 Tablet by mouth [...] Additional Information Patient taking differently:75 mcg Oral [id number], AT LEAST 30 MINUTES PRIOR TO BREAKFAST OR OTHER MEDS,Indications: Hypothyroidism, Reported on 05/26/2023 Azelastine HCl 0.1 % Nasal Solution (Astelin) Administer 2 Sprays into nostril in the morning and 2 Sprays before bedtime. 90 mL 3 3 Active Additional Information Patient taking differently:2 [place] NasalBID PRN, Rhinitis, Indications: Allergic Rhinitis, Reported [...] 3 Active Additional Information Patient taking differently:2 [place] Each Nostril Daily(AM),Indications: Allergic Rhinitis, Reported on [...] the morning. 30 Tablet 3 4 01/20/20 Active LORazepam 1 MG Oral Tablet (Ativan)Indications: ETTA (generalized anxiety disorder) Take 1 Tablet (1 mg) by mouth 3 times a day as needed for Anxiety. 30 Tablet Active Hospital, Clinic, or Other Facility Administered Medication Ordered Dose Route Frequency Start Date End Date Status Denosumab (Prolia) subcut inj 60 mgIndications:Senile osteoporosis 60 mg SC [id number] 03/04/2023 02/27/2024 Active Denosumab (Prolia) subcut inj 60 mgIndications:Senile osteoporosis 60 mg SC ONCE 10/06/2023 10/07/2023 Active documented as of this encounter (statuses as of 10/05/2023) Active Problems Problem Noted Date Diagnosed Date [...] as of this encounter (statuses as of 10/05/2023) Resolved Problems Problem Noted Date Diagnosed Date [...] as of this encounter (statuses as of 10/05/2023) Immunizations Name Administration Dates Next Due COVID-19 [...] Telephone Encounter - Gena Walton PA-C - 10/04/2023 12:53 PM EDT Follow up on patient with noted Renal aneursym: CTA completed 08/17 showing : 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 No significant change from prior studies. Recommend vascular surgery consultation. Repeat imaging completed 02/17 showing : VESSELS: Stable small right renal artery aneurysm measuring 1.7 x 1.4 cm transversely. Message placed to vascular ask doc recommending the following: Repeat a CTA abdomen/pelvis and if there has been any interval growth, please refer to vascular surgery at [facility]. If stable in size can be checked every 1-2 years with repeat CTA, if clinically indicated. Message sent to patient to advise repeat imaging to be ordered and would contact her with results Gena Walton PA-C documented in this encounter Plan of Treatment Upcoming Encounters Date Type Department Care Team (Late st Contact Info) Description 10/06/2023 2:30 PM EDT Nurse Only Rheumatology [facility] [address] [facility] [place] [address] Pf, Nurse Rheum [address] [facility] [place] [address] 10/18/2023 1:10 PM EDT Anticoagulation Pharmacy, [facility] [address] [facility] [place], [place] [address] Pharmacist2, [facility] [address] [place], [place] [address] 11/22/2023 12:00 PM EDT Office Visit Pulmonary Medicine, [facility] [address] [facility] [place] [address] Stanley Chavez MD [address] [place] [facility] [place] [address] 02/22/2024 11:15 AM EST Office Visit Dermatology [facility] [address] [place], [place] [address] Phil Perez MD [address] [facility] [address] [place], [place] [address] 03/09/2024 11:20 AM EST Office Visit General Internal Medicine [facility] [place] [address] [facility] [place] [address] Phil Maldonado MD [address] [facility] [place], [place] [address] 04/07/2024 11:30 AM EST Office Visit Nephrology, [facility] [address] [facility] [place], [place] [address] ZeGena hoffman PA-C [address] [facility] [place], [place] [address] 04/11/2024 1:00 PM EST Office Visit Rheumatology [place] [address] [facility] [address] [place], [place] [address] Tristan Richards MD [facility] [employer] [place], [place] [address] Scheduled Orders Name Type Priority Associated Diagnoses Orde r Schedule CT ABD/PELVIS WO IV/ORAL CONTRAST Medical Imaging STAT Renal artery aneurysm (HCC) Ordered: 10/04/2023 Health Maintenance Due Date Last Done Comments COVID-19 Vaccine ( season) 2023 01/27/2023, 03/18/2022, 01/23/2021, Additional history exists Depression Screening 07/22/2023 07/21/2022 DTaP,Tdap,and Td Vaccines (2 - Td or Tdap) 09/08/2023 09/07/2013, 02/17/2010, 10/18/2001, Additional history exists DXA Scan 10/01/2023 09/30/2021, 070 07/2021, 09/25/2019, Additional history exists Influenza Vaccine (FLU shot) (#1) 2023 01/05/2023, 01/16/2022, 12/27/2020, Additional history exists GFR 02/24/2024 08/24/2023, 04/0 10/2023, 02/04/2023, Additional history exists CKD HGB USE SMARTSET 08302 07/04/202407/04, 07/05/2023, 02/04/2023, Additional history exists CKD PHOS USE SMARTSET 65726 08/10/20241 07/2023, 08/25/2022, 06/26/2021, Additional history exists TSH 08/10/2024 08/11/2023, 04/0 10/2023, 02/04/2023, Additional history exists Albumin/Creatinine Ratio 08/11/2024 024, 08/26/2022, 06/30/2021, Additional history exists Zoster Vaccines Discontinued 02/10/2007 Pneumococcal Vaccine: 65+ Years Completed 07/20/2014, 01/30/2008, 10/16/1994 VITAMIN D LEVEL ONCE IN A LIFETIME-USE SMARTSET# [id number] Completed 08/24/2023, 04/01/2023, 11/13/2022, Additional history exists HPV (Gardasil) Vaccine Aged Out No lo nger eligible based on patient's age to complete this topic MENINGOCOCCAL (MENACTRA/MENVEO) Aged Out No longer eligible based on patient's age to complete this topic documented as of this encounter Medical Devices Implanted Type Area Pressroom Foreman Device Identifier Shelf Expiration Date Model / Serial / Lot Lens Intraoc 22.0 - [id number] - [id number] Implanted:Qty: 1 on 07/01/2021 by Gee Hagen MD at OR [facility] Right: Eye [employer] LOMB 02/25/2026 [id number] / [id number] / [id number] Lens Intraoc 19.5 - [id number] - [id number] Implanted:Qty: 1 on 07/15/2021 by Gee Hagen MD at OR [facility] Left: Eye BAUSCH & LOMB 02/25/2026 [id number] / [id number] / documented as of this encounter Visit Diagnoses Diagnosis Renal artery aneurysm (HCC)- Primary Aneurysm of renal artery documented in this encounter Care Teams Client Director Relationship Specialty Start Date End Date Phil Maldonado MD [address] [place] [address] PCP - General Internal Medicine 06/19/19 documented as of this encounter
--- OUTSIDE RECORDS SUMMARY | 2024-01-02 15:36 | External Medical Summary | Summary of Care ---
Author Name Unknown Organization [facility] Address [address] [place] [address] Phone [phone] Care Team Providers Care Utility System Operator Name Role Phone Phil Maldonado MD Primary Care Provider + Reason for Visit * Reason Comments Allergy Return Encounter Details Date Type Department Care Team (Late st Contact Info) Description 10/04/2023 1:30 PM EDT Office Visit Allergy/Immunology [facility] [address] [place] [address] [place] [address] Felisa Garcia PA-C [address] [place] [address] Nonallergic rhinitis*; Chronic cough; Nasal septal perforation; Bronchiectasis without complication (HCC); Adverse reaction to antibiotic Allergies Active Allergy Reactions Criticality Noted Date [...] 30-600 MG Oral Tablet Extended Release 12 HourIndications:Associate Director Of 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 90 mL 3 3 Active Additional Information Patient taking differently:2 [place] NasalBID PRN, Rhinitis, Indications: Allergic Rhinitis, Reported [...] 3 Active Additional Information Patient taking differently:2 [place] Each Nostril Daily(AM),Indications: Allergic Rhinitis, Reported on [...] inj 60 mgIndications:Senile osteoporosis 60 mg SC [id number] 03/04/2023 02/27/2024 Active Denosumab (Prolia) subcut inj [...] Date Smoking Tobacco: Never Smokeless Tobacco: Never Tobacco Cessation:Counseling Given: Not Answered Alcohol Use Standard Drinks/Week Comments Yes 0 [...] Sign Reading Time Taken Comments Blood Pressure 118/72 10/04/2023 1:25 PM EDT Pulse 79 10/04/2023 1:25 PM EDT Temperature - - Respiratory Rate 16 10/04/2023 1:25 PM EDT Oxygen Saturation 99% 10/04/2023 1:25 PM EDT Inhaled Oxygen Concentration - - Weight 83.9 kg (185 lb) 10/04/2023 1:25 PM EDT Height - - Body Mass Index 30.32 09/22/2023 11:47 AM EDT documented in this encounter Progress Notes * Felisa Garcia PA-C - 10/04/2023 1:58 PM EDT REASON FOR VISIT: Chief Complaint Patient presents with Allergy Return HPI: Horacio is a pleasant 83-year-old female who presents today for follow up of nonallergic rhinitis, asthma, and chronic cough. In May she was diagnosed with bronchiectasis and treated for an acute bronchitis with azithromycin and prednisone taper. Symptoms improved for 2-3 weeks after finishing the medications but then returned. She was treated again with a Zpack and medrol dose back. She reports that one hour after taking the first dose of the Zpack she sarted to experience facial flushing and itching followed by facial swelling and lip swelling, then began to have chest tightness and shortness of breath. 911 was called and she was given epinephrine in the ambulance. She was given benadryl in the ED at [facility] and observed for several hours with resolution of symptoms. She informed director digital strategy who discontinued the azithromycin. She has not had any similar symptoms since. She does continue to take Lisinopril forhtn which she has been on for 40+ years. She denies new foods or insect stings. As above, she was being treated for suspected bronchitis at the time. [place] exposed tosick contacts (grandchildren). She was switched from Breo to Trelegy which she has been tolerating well without adverse reaction and feels it is helping with her breathing. She continues to albuterol as needed for coughing and shortness of breath which she typically used 2-3 times per day, including at night. She denies wheezing. No fevers or chills. No ED or Urgent care visits from a pulmonology standpoint. She was started on a course of augmentin which she takes for 10 days every month, and she was prescribed a daily doseof prednisone 2.5 mg. She does continues Singulair 10 mg once daily and takes Mucinex 1-2 times perday. She has been using her flutter valve which she finds helpful. She isn't having a lot in the way of nasal symptoms. She isn't currently using any nasal sprays. She was previously on Flonase and Astelin but discontinued both and denies any increase in symptoms. She does endorse a history of nasal congestion and postnasal drainage and recurrent sinus infections,but hasn't had any nasal symptoms in a few months. She was in [place] for two months and did well there. She does endorse occasional rhinorrhea which is not bothersome. She does watch for poor air quality and tried to stay indoors when the pollen counts are high or when the air quality is poor. The patient has also been treated for gastroesophageal reflux disease and this did not improve the cough overall. A trial off of Lisinopril in the past didn't improve her cough, and she was restarted. Triggers of her cough include drastic changes in the barometric pressure, drastic changes in the temperature, the act of eating, poor air quality, and when she has exposure to cleaning products. Past Medical History: Diagnosis Date Adjustment disorder [...] performed by Luis Mcdaniel MD at ENDOSCOPY [facility] EGD, FLEXIBLE, DIAGNOSTIC 07/11/2013 ESOPHAGOGASTRODUODENOSCOPY (EGD), FLEXIBLE, TRANSORAL, DIAGNOSTIC performed by Brandon Silva MD at ENDOSCOPY [facility] EGD, FLEXIBLE, DIAGNOSTIC 09/02/2022 sm hiatal hernia / ESOPHAGOGASTRODUODENOSCOPY (EGD), FLEXIBLE, TRANSORAL, DIAGNOSTIC performed by Rosy Alanis DO at ENDOSCOPY [facility] LIGATE/CUT OVIDUCT(S) 03/29/1983 Tubal Ligation NASAL ENDOSCOPY, DIAGNOSTIC 05/27/1993 Nasal Endoscopy,Dx NASAL ENDOSCOPY, DX W/SINUSOSCOPY Sinus Nasal/Maxill Endoscopy,Dx NASAL ENDOSCOPY, DX W/SINUSOSCOPY Sinus Nasal/Sphenoid Endoscopy,Dx REMOVE CATARACT, INSERT LENS PROSTH Right 07/01/2021 Right EXTRACAPSULAR CATARACT REMOVAL WITH INTRAOCULAR LENS performed by Gee Hagen MD at [facility] REMOVE CATARACT, INSERT LENS PROSTH Left 07/15/2021 Left EXTRACAPSULAR CATARACT REMOVAL WITH INTRAOCULAR LENS performed by Gee Hagen MD at OR [facility] REMOVE GALLBLADDER 03/29/2000 REMOVE TONSILS & ADENOIDS, UNDER 12 Tonsillectomy/Adenoids,<12 Y/O Current Outpatient Medications Medication Sig Dispense Refill Prolia 60 MG/ML Subcutaneous Solution Prefilled Syringe (denosumab) Inject 60 mg under the skin every 6 months. 1 Each 0 Acetaminophen 500 MG Oral Tablet (Tylenol) Take 2 Tablets by mouth every 12 hours as needed for Pain, Mild. 100 Tab 0 Dicyclomine HCl 10 MG Oral Capsule (Bentyl) TAKE 1 CAPSULE BY MOUTH 4 TIMES DAILY NEEDED FOR ABDOMINAL PAIN/CRAMPING. (Patient taking differently: TAKE 1 CAPSULE BY MOUTH 4 TIMES DAILY NEEDED FOR ABDOMINAL PAIN/CRAMPING.) 120 Capsule 11 Polyethylene Glycol 3350 17 GM/SCOOP Oral Powder Take 17 g by mouth as needed for Constipation. Dissolve one heaping tablespoon in 8 ounces of water or juice. Albuterol Sulfate (2.5 MG/3ML) 0.083% Inhalation Nebulization Solution (Proventil) Inhale 1 Vial via nebulizer every 6 hours as needed for Wheezing. (Patient taking differently: Inhale 1 Vial via nebulizer every 6 hours as needed for Wheezing.) 360 mL 11 Vitamin D3 25 MCG (1000 UT) Oral Capsule Famotidine 20 MG Oral Tablet (Pepcid) Take 1 Tablet by mouth at bedtime. (Patient taking differently: Take 1 Tablet by mouth at bedtime as needed for Heartburn.) 30 Tablet 2 Mucinex DM 30-600 MG Oral Tablet Extended Release 12 Hour Take 1 Tablet by mouth 2 times a day as needed for Cough. Take with plenty of water. Do not cut, crush or chew 40 Tablet 2 Albuterol Sulfate HFA 108 (90 Base) MCG/ACT Inhalation Aerosol Solution Inhale 2 Puffs by mouth every 6 hours as needed for Shortness of Breath. (Patient taking differently: Inhale 2 Puffs by mouth every 6 hours as needed for Shortness of Breath.) 18 g 5 Levothyroxine Sodium 75 MCG Oral Tablet (Levoxyl) Take 1 Tablet by mouth daily first thing in the morning. AT LEAST 30 MINUTES PRIOR TO BREAKFAST OR OTHER MEDS (Patient taking differently: Take 1 Tablet by mouth daily first thing in the morning. AT LEAST 30 MINUTES PRIOR TO BREAKFAST OR OTHER MEDS)90 Tablet 3 Azelastine HCl 0.1 % Nasal Solution (Astelin) Administer 2 Sprays into nostril in the morning and 2Sprays before bedtime. (Patient taking differently: Administer 2 Sprays into nostril 2 times a day as needed for Rhinitis.) 90 mL 3 Pravastatin Sodium 10 MG Oral Tablet (Pravachol) TAKE 1 TABLET BY MOUTH AT BEDTIME (Patient taking differently: No sig reported) 90 Tablet 3 Fluticasone Propionate 50 MCG/ACT Nasal Suspension (Flonase) Administer 2 Sprays into each nostril in the morning. (Patient taking differently: Administer 2 Sprays into each nostril in the morning.) 16 g 2 Omeprazole 40 MG Oral Capsule Delayed Release (PriLOSEC) Take 1 Capsule by mouth daily as needed for Heartburn. Levocetirizine Dihydrochloride 5 MG Oral Tablet TAKE 1/2 TABLET BY MOUTH EVERY OTHER DAY (Patient taking differently: TAKE 1/2 TABLET BY MOUTH EVERY OTHER DAY) 15 Tablet 5 Spironolactone 25 MG Oral Tablet (Aldactone) TAKE 1 TABLET BY MOUTH ONCE DAILY IN THE MORNING (Patient taking differently: TAKE 1 TABLET BY MOUTH ONCE DAILY IN THE MORNING) 30 Tablet 6 Lisinopril-hydroCHLOROthiazide 20-12.5 MG Oral Tablet Take 2 Tablets by mouth in the morning. 180 Tablet 1 PARoxetine HCl 30 MG Oral Tablet (Paxil) TAKE 1 TABLET BY MOUTH ONCE DAILY IN THE MORNING 90 Tablet1 Metoprolol Succinate ER 25 MG Oral Tablet Extended Release 24 Hour (toPROL XL) TAKE 1/2 TABLET EVERY MORNING 45 Tablet 1 Montelukast Sodium 10 MG Oral Tablet (Singulair) TAKE 1 TABLET BY MOUTH AT BEDTIME 90 Tablet 1 Allopurinol 100 MG Oral Tablet (Zyloprim) Take 2 Tablets by mouth in the morning. Trelegy Ellipta 100-62.5-25 MCG/ACT Aerosol Powder Breath Activated (Kllvqomlikc-Ynlabzpatfxp-Nbngjsmdym) Inhale 1 Puff by mouth in the morning. 60 Blister Dosing Unit 0 methylPREDNISolone 4 MG Oral Tablet Therapy Pack (Medrol Dosepack) follow package directions 21 Tablet 0 predniSONE 2.5 MG Oral Tablet (Deltasone) Take 1 Tablet by mouth in the morning. 30 Tablet 3 LORazepam 1 MG Oral Tablet (Ativan) Take 1 Tablet (1 mg) by mouth 3 times a day as needed for Anxiety. 30 Tablet 0 COMPRESSOR/NEBULIZER MISC use for DuoNeb administration 1 Each 0 Spacer/Aero-Holding Chambers [place] Use with inhalers as instructed. 1 Device 2 Warfarin Sodium 2.5 MG Oral Tablet (Coumadin) Take 1 tablet daily Or as directed by coag clinic (Patient taking differently: Take 1 tablet daily Or as directed by coag clinic) 90 Tablet 3 Current Facility-Administered Medications Medication Dose Route Frequency Provider Last Rate Last Admin Denosumab (Prolia) subcut inj 60 mg 60 mg Subcutaneous Q6 Months Alejandrina Torres CRNP 60 mg at 03/11/23 1359 [START ON 10/06/2023] Denosumab (Prolia) subcut inj 60 mg 60 mg Subcutaneous Once Allergies as of 10/04/2023 - Reviewed 10/04/2023 Allergen Reaction Noted Azithromycin Anaphylaxis 08/11/2023 Sulfa antibiotics Hives 10/29/1998 Family History Problem Relation Name Age of Onset Stroke Mother 83 Other (blood clots post ?) Mother Mental Disorder Father depression Hypertension Father Other ( at of CVA) Sister Other (covid) Daughter Stroke Aunt (Unspecified) Stroke Aunt (Unspecified) Stroke Uncle (Unspecified) Neurological Disorder Uncle (Unspecified) parkinson's Lung Disorder Grandfather (Maternal) pneumonia in 1920's Stroke Grandmother (Paternal) Stroke Grandfather (Paternal) Social History Socioeconomic History Marital status: Spouse name: Not on file Number of children: Not on file Years of education: Not on file Highest education level: Not on file Occupational History Not on file Tobacco Use Smoking status: Never Smokeless tobacco: Never Vaping Use Vaping status: Never Used Substance and Sexual Activity Alcohol use: Yes Comment: sparingly Drug use: No Sexual activity: Yes Partners: Male Other Topics Concern Not on file Social History Narrative 07/2016 No pets No recent construction/renovation/painting Carpeting 5 yrs old Social Determinants of Health Financial Resource Strain: Not on file Food Insecurity: No Food Insecurity (07/21/2022) Hunger Vital Sign Worried About Running Out of Food in the Last Year: Never true Ran Out of Food in the Last Year: Never true Transportation Needs: Not on file Social Connections: Unknown (09/14/2023) Social Connections How often do you feel lonely or isolated from those around you? (Adult - for ages 18 years and over): Not on file Housing Stability: Not on file Social history: The [facility] [place] [facility] with a gas heating system and air conditioning. The home has no issues with cockroaches. She will occasionally use scented candles. There are nopets within the home. The patient previously used to work for [employer] but is currently retired. BP 118/72 (BP Site: Right Arm, BP Position: Sitting) | Pulse 79 | Resp 16 | Wt 83.9 kg (185 lb) | SpO2 99% | BMI 30.32 kg/m | BSA 1.97 m PHYSICAL EXAM: GENERAL: No acute distress. EYES: Conjunctiva- normal; Eyelids - normal EARS: TM's - cerumen right, left clear. Bilateral hearing aids. NOSE:Pale mucosa; moderate Inferior turbinate edema; no nasal polyps or mucopus; Septum - significant posterior perforation with crusting. OROPHARYNX: Teeth and gums - normal; Mild erythema, mild cobblestoning; No lesions, exudates NECK: Supple; No thyroid enlargment or cervical adenopathy RESPIRATORY: Clear to A and P; No wheezes; Good air movement bilaterally; No intercostal retractions or accessory muscle use CARDIOVASCULAR: RRR; No gallops, rubs, clicks, or murmurs. LYMPHATIC: No significant adenopathy noted SKIN: No significant rashes or lesions seen, no urticarial, vesicular or eczematous lesions noted OBJECTIVE: Exam: CT Chest Without Contrast; Diagnostic Exam date and time: 09/22/2023 9:43 AM Age: 83 years old Clinical indication: Chronic cough; Additional info: Recurrent bronchitis, reticular scarring, bronchiectasis TECHNIQUE: Imaging protocol: Diagnostic computed tomography of the chest without contrast. Radiation optimization: All CT scans at this facility use at least one of these dose optimization techniques: automated exposure control; mA and/or kV adjustment per patient size (includes targeted exams where dose is matched to clinical indication); or iterative reconstruction. COMPARISON: CT CHEST WO(Adult) 02/04/2023 10:37 AM FINDINGS: Lungs: Stable 0.5 x 1.2 cm left perifissural nodule, image 39 series 2. Stable linear atelectasis versus scarring in the anterior right upper lobe, image 25 series 2. No focal consolidation/pneumonia. Pleural spaces: No pneumothorax. No pleural effusion. Heart: Coronary artery calcification. No cardiomegaly. Lymph nodes: No enlarged lymph nodes. Vasculature: Atherosclerotic changes. 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 Ectasia of the ascending aorta, measuring 3.5 cm. Liver: Water attenuation 1.7 cm left hepatic lobe lesion, likely simple cyst not requiring additional follow-up. Gallbladder and biliary ducts: Surgical clips in the gallbladder fossa. Bones/joints: Moderate degenerative changes in the spine. Soft tissues: No subcutaneous edema. IMPRESSION IMPRESSION: Stable chronic pulmonary findings. Otherwise no acute consolidation/pneumonia. Additional chronic findings as above. EXAM XR CHEST 2 VIEWS-07/05/2023 9:06 am HISTORY Worsened SOB, altered mental status COMPARISON Chest 06/17/2023 TECHNIQUE 2 views consisting of PA and lateral projections FINDINGS Lungs and pleural spaces are clear. Pulmonary vasculature is not engorged. Cardiomediastinal silhouette is normal. IMPRESSION IMPRESSION No acute cardiopulmonary disease. EXAM XR CHEST 2 VIEWS-06/17/2023 12:25 pm HISTORY Cough on and off 1 year, SOB COMPARISON Chest radiograph dated 12/03/2022 TECHNIQUE PA and lateral views of the chest were obtained FINDINGS LINES/DEVICES: None. LUNGS/PLEURA: Clear lungs. No pleural effusion or pneumothorax. CARDIOVASCULAR/MEDIASTINUM: Within normal limits. OTHER: Unremarkable upper abdomen. No acute osseous abnormality. IMPRESSION IMPRESSION No acute cardiopulmonary disease. Component Latest Ref Rng 01/14/2023 Mite Pteronyssinus IgE <0.10 kUa/L <0.10 Mite Farinae IgE <0.10 kUa/L <0.10 Cat Dander IgE <0.10 kUa/L <0.10 Dog Dander IgE <0.10 kUa/L <0.10 Bermuda Grass IgE <0.10 kUa/L <0.10 Phil Grass IgE <0.10 kUa/L <0.10 Penicillium Notatum IgE <0.10 kUa/L <0.10 Cladosporium IgE <0.10 kUa/L <0.10 Aspergillus IgE <0.10 kUa/L <0.10 Alternaria IgE <0.10 kUa/L <0.10 Helminthosporium IgE <0.10 kUa/L <0.10 Pullularia IgE <0.10 kUa/L <0.10 Acremonium Kiliense IgE <0.10 kUa/L <0.10 Miller Maple IgE <0.10 kUa/L <0.10 Birch IgE <0.10 kUa/L <0.10 [place] IgE <0.10 kUa/L <0.10 Elm IgE <0.10 kUa/L <0.10 [place] Tree IgE <0.10 kUa/L <0.10 [place] IgE <0.10 kUa/L <0.10 White Red IgE <0.10 kUa/L <0.10 Pecan [place] IgE <0.10 kUa/L <0.10 Common Ragweed IgE <0.10 kUa/L <0.10 Mugwort IgE <0.10 kUa/L <0.10 Surinamese Plantain IgE <0.10 kUa/L <0.10 Mtz's Quarter IgE <0.10 kUa/L <0.10 Cocklebur IgE <0.10 kUa/L <0.10 Pigweed IgE <0.10 kUa/L <0.10 Sheep [place] IgE <0.10 kUa/L <0.10 IgE <=214.0 kU/L 5.2 ASSESSMENT AND PLAN: ICD-10-CM 1. 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 Chronic cough R05.3 3. Nasal septal perforation J34.89 4. Bronchiectasis without complication ([facility]) J47.9 5. Adverse reaction to antibiotic T36.95XA In summary, Horacio presents to our office with a history of a chronic cough, bronchiectasis, nonallergic rhinitis, and recurrent sinus infections. Serum IgE determinations for common environmental aeroallergens was completed in December, and did return negative. Symptoms and negative results of allergy testing does indicate nonallergic rhinitis. She does note triggers of barometric pressure changes, temperature changes, the act of eating,and increased cough around cleaning products and other chemicals. Most notably, she has noticed impr ovement of symptoms when she avoids poor air quality by staying indoors on poor air quality days. Typically in patients with chronic nonallergic rhinitis, oral antihistamines are of not much benefit.Generally in patients with nonallergic rhinitis, combination nasal spray therapy may be helpful. Currently, she does feel nasal symptoms are well controlled without nasal spray therapy. However, is symptoms were to worsen, she may use Flonase 1 spray to each nostril twice daily in addition to Astelin 2 sprays each nostril twice daily as needed for rhinitis. This is to be preceded by a normal saline sinus rinse each time. Proper technique of a nasal spray which shown to her today. Should there be a persistence of symptoms, our next step would be to possibly try ipratropium nasal spray as this has also been shown to be of benefit in gustatory rhinitis. In regards to the patient's chronic cough, we do recommend that she continue to follow up with pulmonology as she is been doing. She will continue on Trelegy Ellipta 100-62.5-25 1 puff once daily. She will also continue on Singulair 10 mg daily as she has been doing. She does have albuterol to be used on an as needed basis for any cough, wheezing, or shortness of breath. She does have a nasal septal perforation. This isn't bothering her. If symptoms were to worsen or if she were to develop any new or troubling symptoms a referral to ENT would be provided. She had an adverse reaction consisting of facial flushing, hives, angioedema, and coughing/wheezingto azithromycin in June which required an ED visit and epinephrine and benadryl. She has not had any further azithromycin or reactions. She was able to tolerate azithromycin a few weeks prior without reaction. She does additionally avoid Sulfa containing antibiotics secondary to hives associated with them. There is no testing for azithromycin so avoidance is recommended. She is additionally on lisinopril which can cause angioedema. She will discuss this further with her primary care provider to determine whether an alternative antihypertensive is recommended. We will plan to see her back in 6 months, sooner as needed. All questions answered at today's visit. Encouraged her to call sooner with further questions or concerns. Felisa Garcia PA-C Allergy and Immunology [facility] [place] Supervising Physician: Andrew Patricio MD Type of Supervision: Direct I spent a total of 30-39 minutes (exact time 39 mins) on the date of service in preparation, delivery, and documentation of the care provided to Horacio Yeung excluding any time spent in the performance of separately billed services. (This note was completed using the dictation program Fluency Direct. As such, there may be misspellings, word substitutions, or other variations that should not change the essence of the clinical content of this encounter note.If there is need for further clarification, please direct questions to the provider listed above.) PCP: PHIL MALDONADO Dr [place] [id number] [phone] documented in this encounter Nursing Notes * Marti Castillo LPN - 10/04/2023 1:21 PM EDT The pt has been properly identified by confirmation of name and date of . Pt here for return visit. documented in this encounter Plan of Treatment Upcoming Encounters Date Type Department Care Team (Late st Contact Info) Description 10/06/2023 2:30 PM EDT Nurse Only Rheumatology [address] [place] [address] Pf, Nurse Rheum [facility] [address] [place] [address] 10/18/2023 1:10 PM EDT Anticoagulation Pharmacy, [facility] [address] [facility] [place] [address] Pharmacist2, [facility] [address] [place] [address] 11/22/2023 12:00 PM EDT Office Visit Pulmonary Medicine, [facility] [address] [facility] [place] [address] Stanley Chavez MD [address] [place] [address] 02/22/2024 11:15 AM EST Office Visit Dermatology [facility] [address] [place] [address] Phil Perez MD [address] [facility] [place] [address] 03/09/2024 11:20 AM EST Office Visit General Internal Medicine [facility] [address] [facility] [place] [address] Phil Maldonado MD [address] [place] [address] 04/07/2024 11:30 AM EST Office Visit Nephrology, [facility] [address] [facility] [place], [place] [address] Gena Walton PAMari [address] [facility] [place], [place] [address] 04/11/2024 1:00 PM EST Office Visit Rheumatology [place] [address] [facility] [place], [place] [address] Tristan Richards MD [address] [place], [place] [address] Health Maintenance Due Date Last Done Comments COVID-19 Vaccine ( season) 2023 01/27/2023, 03/18/2022, 01/23/2021, Additional history exists Depression Screening 07/22/2023 07/21/2022 DTaP,Tdap,and Td Vaccines (2 - Td or Tdap) 09/08/2023 09/07/2013, 02/17/2010, 10/18/2001, Additional history exists DXA Scan 10/01/2023 09/30/2021, 0 07/2021, 09/25/2019, Additional history exists Influenza Vaccine (FLU shot) (#1) 2023 01/05/2023, 01/16/2022, 12/27/2020, Additional history exists GFR 02/24/2024 08/24/2023, 0 10/2023, 02/04/2023, Additional history exists CKD HGB USE SMARTSET 28785 07/04/202407/04, 07/05/2023, 02/04/2023, Additional history exists CKD PHOS USE SMARTSET 39391 08/10/202407/27, 08/25/2022, 06/26/2021, Additional history exists TSH 08/10/2024 08/11/2023, 0 10/2023, 02/04/2023, Additional history exists Albumin/Creatinine Ratio 08/11/2024 024, 08/26/2022, 06/30/2021, Additional history exists Zoster Vaccines Discontinued 02/10/2007 Pneumococcal Vaccine: 65+ Years Completed 07/20/2014, 01/30/2008, 10/16/1994 VITAMIN D LEVEL ONCE IN A LIFETIME-USE SMARTSET# [id number] Completed 08/24/2023, 04/01/2023, 11/13/2022, Additional history exists HPV (Gardasil) Vaccine Aged Out No lo nger eligible based on patient's age to complete this topic MENING[facility]CCAL (MENACTRA/MENVEO) Aged Out No longer eligible based on patient's age to complete this topic documented as of this encounter Medical Devices Implanted Type Area Shower Doors And Panels Fabricator Device Identifier Shelf Expiration Date Model / Serial / Lot Lens Intraoc 22.0 - [id number] - [id number] Implanted:Qty: 1 on 07/01/2021 by Gee Hagen MD at OR [facility] Right: Eye BAUSCH & LOMB 02/25/2026 [id number] / [id number] / [id number] Lens Intraoc 19.5 - [id number] - [id number] Implanted:Qty: 1 on 07/15/2021 by Gee Hagen MD at OR [facility] Left: Eye BAUSCH & LOMB 02/25/2026 [id number] / [id number] / documented as of this encounter Visit Diagnoses Diagnosis Nonallergic rhinitis- Primary Chronic rhinitis Chronic cough Cough Nasal septal perforation Other diseases of nasal cavity and sinuses Bronchiectasis without complication (HCC) Bronchiectasis without acute exacerbation Adverse reaction to antibiotic Unspecified adverse effect of other drug, medicinal and biological substance documented in this encounter Care Teams Utility System Operator Relationship Specialty Start Date End Date Phil Maldonado MD [address] [place] [address] PCP - General Internal Medicine 06/19/19 documented as of this encounter"
--- OUTSIDE RECORDS SUMMARY | 2024-01-02 15:36 | External Medical Summary | Summary of Care ---
Author Name Unknown Organization [facility] Address [address] [place] [address] Phone [phone] Care Team Providers Care Sandblast Carver Name Role Phone Phil Maldonado MD Primary Care Provider + Reason for Referral * Precert (Within 24 hrs (call dept; emergent)) - Pending Review Specialty Diagnoses / Procedures Referred By Petty walden Referred To Contact Radiology Diagnoses Renal artery aneurysm (HCC) Procedures CT ABD/PELVIS WO IV/ORAL CONTRAST Gena Walton PA-C [address] [place] [address] Referral ID Status Reason Start Date Expiration Date V isits Requested Visits Authorized [id number] Pending Review 10/04/2023 999 999 Reason for Visit * Reason Onset Date Comments Order Request 10/04/2023 Encounter Details Date Type Department Care Team (Late st Contact Info) Description 10/04/2023 Telephone NephrologyJed [address] [place] [address] Gena Walton PA-C [address] [facility] [place] [id number] Order Request Allergies Active Allergy Reactions Criticality Noted Date Comments Azithromycin Anaphylaxis High 08/11/2023 Sulfa Antibiotics Hives 10/29/1998 documented as of this encounter (statuses as of 10/04/2023) Medications Medication Sig Dispensed Refills Start Date [...] 30-600 MG Oral Tablet Extended Release 12 HourIndications:Drywall Boardhanger giuliana Cough Take 1 Tablet by mouth [...] Additional Information Patient taking differently:75 mcg Oral [id number], AT LEAST 30 MINUTES PRIOR TO BREAKFAST OR OTHER MEDS,Indications: Hypothyroidism, Reported on 05/26/2023 Azelastine HCl 0.1 % Nasal Solution (Astelin) Administer 2 Sprays into nostril in the morning and 2 Sprays before bedtime. 90 mL 3 3 Active Additional Information Patient taking differently:2 [place] NasalBID PRN, Rhinitis, Indications: Allergic Rhinitis, Reported [...] 3 Active Additional Information Patient taking differently:2 [place] Each Nostril Daily(AM),Indications: Allergic Rhinitis, Reported on [...] inj 60 mgIndications:Senile osteoporosis 60 mg SC [id number] 03/04/2023 02/27/2024 Active Denosumab (Prolia) subcut inj 60 mgIndications:Senile osteoporosis 60 mg SC ONCE 10/06/2023 10/07/2023 Active documented as of this encounter (statuses as of 10/04/2023) Active Problems Problem Noted Date Diagnosed Date [...] as of this encounter (statuses as of 10/04/2023) Resolved Problems Problem Noted Date Diagnosed Date [...] as of this encounter (statuses as of 10/04/2023) Immunizations Name Administration Dates Next Due COVID-19 [...] 10/04/2023 1:30 PM EDT Office Visit Allergy/Immunology [facility] [address] [place] [address] Felisa Garcia PA-C [address] [facility] [place] [address] Arrived 10/05/2023 11:00 AM EDT Imaging Radiology, [address] [place] [address] 10/06/2023 2:30 PM EDT Nurse Only Rheumatology [place] [phone] [facility] [place] [address] Pf, Nurse Rheum [address] [place] [address] [place] [address] 10/18/2023 1:10 PM EDT Anticoagulation Pharmacy, [facility] [address] [facility] [address] [place] [address] Pharmacist2, [facility] [address] [place] [address] 11/22/2023 12:00 PM EDT Office Visit Pulmonary Medicine, [facility] [address] [facility] [place] [address] [facility]avez [facility] [address] [facility] [address] 02/22/2024 11:15 AM EST Office Visit Dermatology [facility] [address], [place] [address] Phil Perez MD [address] [facility] [place] [address] 03/09/2024 11:20 AM EST Office Visit General Internal Medicine [facility] [address] [place], [place] [address] Phil Maldonado MD [address] [facility] [place] [address] 04/07/2024 11:30 AM EST Office Visit Nephrology, [facility] [address] [place] [address] Gena Walton PA-C [address], [place] [address] 04/11/2024 1:00 PM EST Office Visit Rheumatology [place] [phone] [place] [address] Tristan Richards MD [address] [place] [address] Scheduled Orders Name Type Priority Associated Diagnoses [...] Additional history exists CKD HGB USE SMARTSET 09748 07/04/202407/04, 07/05/2023, 02/04/2023, Additional history exists CKD PHOS USE SMARTSET 08806 08/10/2024 0507/2023, 08/25/2022, 06/26/2021, Additional history exists TSH 08/10/2024 08/11/2023, 04/0 10/2023, 02/04/2023, Additional history exists Albumin/Creatinine Ratio 08/11/2024 024, 08/26/2022, 06/30/2021, Additional history exists Zoster Vaccines Discontinued 02/10/2007 Pneumococcal Vaccine: 65+ Years Completed 07/20/2014, 01/30/2008, 10/16/1994 VITAMIN D LEVEL ONCE IN A LIFETIME-USE SMARTSET# 09199 Completed 08/24/2023, 04/01/2023, 11/13/2022, Additional history exists HPV (Gardasil) Vaccine Aged Out No lo nger eligible based on patient's age to complete this topic MENINGOCOCCAL (MENACTRA/MENVEO) Aged Out No longer eligible based on patient's age to complete this topic documented as of this encounter Medical Devices Implanted Type Area Laundry Supervisor Device Identifier Shelf Expiration Date Model / Serial / Lot Lens Intraoc 22.0 - [id number] - [id number] Implanted:Qty: 1 on 07/01/2021 by Gee Hagen MD at OR [facility] Right: Eye BAUSCH & LOMB 02/25/2026 [id number] / [id number] / [id number] Lens Intraoc 19.5 - [id number] - [id number] Implanted:Qty: 1 on 07/15/2021 by Gee Hagen MD at OR [facility] Left: Eye BAUSCH & LOMB 02/25/2026 [id number] / [id number] / documented as of this encounter Visit Diagnoses Diagnosis 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
--- OUTSIDE RECORDS SUMMARY | 2024-01-02 15:36 | External Medical Summary | Summary of Care ---
Author Name Unknown Organization [facility] Address [address] [place] [address] Phone [phone] Care Team Providers Care Animal Nutrition Consultant Name Role Phone Phil Maldonado MD Primary Care Provider + Encounter Details Date Type Department Care Team (Late st Contact Info) Description 09/29/2023 Telephone Rheumatology [place] [address] [place] [address] Tristan Richards MD [address] [place] [address] Allergies Active Allergy Reactions Criticality Noted Date Comments Azithromycin Anaphylaxis High 08/11/2023 Sulfa Antibiotics Hives 10/29/1998 documented as of this encounter (statuses as of 09/29/2023) Medications Medication Sig Dispensed Refills Start Date [...] 30-600 MG Oral Tablet Extended Release 12 HourIndications:Tile Ditcher giuliana Cough Take 1 Tablet by mouth [...] Additional Information Patient taking differently:75 mcg Oral [id number], AT LEAST 30 MINUTES PRIOR TO BREAKFAST OR OTHER MEDS,Indications: Hypothyroidism, Reported on 05/26/2023 Azelastine HCl 0.1 % Nasal Solution (Astelin) Administer 2 Sprays into nostril in the morning and 2 Sprays before bedtime. 90 mL 3 3 Active Additional Information Patient taking differently:2 [place] NasalBID PRN, Rhinitis, Indications: Allergic Rhinitis, Reported [...] 3 Active Additional Information Patient taking differently:2 [place] Each Nostril Daily(AM),Indications: Allergic Rhinitis, Reported on [...] follow package directions 21 Tablet 4 Active Amoxicillin-Pot Clavulanate 875-125 MG Oral Tablet (Augmentin) Take 1 Tablet by mouth in the morning and 1 Tablet before bedtime. Do all this for 10 days. 20 Tablet 3 4 10/02/19 24 Active predniSONE 2.5 MG Oral Tablet [...] inj 60 mgIndications:Senile osteoporosis 60 mg SC [id number] 03/04/2023 02/27/2024 Active Denosumab (Prolia) subcut inj 60 mgIndications:Senile osteoporosis 60 mg SC ONCE 10/06/2023 10/07/2023 Active documented as of this encounter (statuses as of 09/29/2023) Active Problems Problem Noted Date Diagnosed Date [...] as of this encounter (statuses as of 09/29/2023) Resolved Problems Problem Noted Date Diagnosed Date [...] as of this encounter (statuses as of 09/29/2023) Immunizations Name Administration Dates Next Due COVID-19 [...] encounter Miscellaneous Notes * Telephone Encounter - Tristan Richards MD - 09/29/2023 12:37 PM EDT signed * Telephone Encounter - Yanelis Kinsey LPN - 09/29/2023 10:41 AM EDT Chart reviewed and labs noted to be within normal limits. Patient has been seen within the last 12 months by a Rheumatology provider. Prolia authorization approved and updated in referral. Last injection has been > 6 months and 1 day. CAM orders pended for signature. documented in this encounter Plan of Treatment Upcoming Encounters Date Type Department Care Team (Late st Contact Info) Description 10/04/2023 1:30 PM EDT Office Visit Allergy/Immunology [facility] [address] [place] [address] Felisa Garcia PA-C [address] [place] [address] 10/05/2023 11:00 AM EDT Imaging Radiology, [facility] [place] [address] [address] 10/06/2023 2:30 PM EDT Nurse Only Rheumatology [facility] [place] [address] Pf, [place] [address] [address] 10/18/2023 1:10 PM EDT Anticoagulation Pharmacy, [facility] [address] [place] [address] Pharmacist2, [facility] [address] [facility] [place] [address] 11/22/2023 12:00 PM EDT Office Visit Pulmonary Medicine, [facility] [address] [place], [place] [address] Stanley Chavez [facility] [address] [facility] [address] 02/22/2024 11:15 AM EST Office Visit Dermatology [facility] 200 [facility] [place], [place] [address] Phil Perez MD [address] [facility] [place], [place] [address] 03/09/2024 11:20 AM EST Office Visit General Internal Medicine [facility] [address] [facility] [place], [place] [address] Phil Maldonado MD [address] [facility] [place] [address] 04/07/2024 11:30 AM EST Office Visit Nephrology, [facility] [address] [facility] [place], [place] [address] Gena Walton PAMari [address] [place] [address] 04/11/2024 1:00 PM EST Office Visit Rheumatology [place] [address] [place] [address] Tristan Richards MD [address] [place] [address] Health Maintenance Due Date Last Done Comments [...] Additional history exists CKD HGB USE SMARTSET 92621 07/04/202407/04, 07/05/2023, 02/04/2023, Additional history exists CKD PHOS USE SMARTSET 71637 08/10/20241 07/2023, 08/25/2022, 06/26/2021, Additional history exists TSH 08/10/2024 08/11/2023, 0 10/2023, 02/04/2023, Additional history exists Albumin/Creatinine Ratio 08/11/2024 024, 08/26/2022, 06/30/2021, Additional history exists Zoster Vaccines Discontinued 02/10/2007 Pneumococcal Vaccine: 65+ Years Completed 07/20/2014, 01/30/2008, 10/16/1994 VITAMIN D LEVEL ONCE IN A LIFETIME-USE SMARTSET# 54872 Completed 08/24/2023, 04/01/2023, 11/13/2022, Additional history exists HPV (Gardasil) Vaccine Aged Out No lo nger eligible based on patient's age to complete this topic MENINGOCOCCAL (MENACTRA/MENVEO) Aged Out No longer eligible based on patient's age to complete this topic documented as of this encounter Medical Devices Implanted Type Area Assembler For Puller Over Hand Device Identifier Shelf Expiration Date Model / Serial / Lot Lens Intraoc 22.0 - [id number] - [id number] Implanted:Qty: 1 on 07/01/2021 by Gee Hagen MD at OR [facility] Right: Eye BAUSCH & LOMB 02/25/2026 [id number] / [id number] / [id number] Lens Intraoc 19.5 - [id number] - [id number] Implanted:Qty: 1 on 07/15/2021 by Gee Hagen MD at OR [facility] Left: Eye BAUSCH & LOMB 02/25/2026 [id number] / [id number] / documented as of this encounter Visit Diagnoses Diagnosis Senile osteoporosis- Primary documented in this encounter Care Teams Animal Nutrition Consultant Relationship Specialty Start Date End Date Phil Maldonado MD [address] [place] [address] PCP - General Internal Medicine 06/19/19 documented as of this encounter
--- OUTSIDE RECORDS SUMMARY | 2024-01-02 15:36 | External Medical Summary | Summary of Care ---
Author Name Unknown Organization [facility] Address [address] [place] [address] Phone [phone] Care Team Providers Care Rock Breaker Name Role Phone Phil Maldonado MD Primary Care Provider + Reason for Visit * Reason Comments Dosage Adjustment Via Phone (anticoag Cl inic) Encounter Details Date Type Department Care Team (Late st Contact Info) Description 10/01/2023 9:30 AM EDT Telemedicine Pharmacy, [facility] [address] [place] [address] Pharmacist2, [facility] [address] [place] [address] Essential hypertension with goal blood pressure less than 140/90* Allergies Active Allergy Reactions Criticality Noted Date Comments Azithromycin Anaphylaxis High 08/11/2023 Sulfa Antibiotics Hives 10/29/1998 documented as of this encounter (statuses as of 10/01/2023) Medications Medication Sig Dispensed Refills Start Date [...] 30-600 MG Oral Tablet Extended Release 12 HourIndications:Concrete Truck Driver giuliana Cough Take 1 Tablet by mouth [...] Additional Information Patient taking differently:75 mcg Oral [id number], AT LEAST 30 MINUTES PRIOR TO BREAKFAST OR OTHER MEDS,Indications: Hypothyroidism, Reported on 05/26/2023 Azelastine HCl 0.1 % Nasal Solution (Astelin) Administer 2 Sprays into nostril in the morning and 2 Sprays before bedtime. 90 mL 3 3 Active Additional Information Patient taking differently:2 [place] NasalBID PRN, Rhinitis, Indications: Allergic Rhinitis, Reported [...] 3 Active Additional Information Patient taking differently:2 [place] Each Nostril Daily(AM),Indications: Allergic Rhinitis, Reported on [...] inj 60 mgIndications:Senile osteoporosis 60 mg SC [id number] 03/04/2023 02/27/2024 Active Denosumab (Prolia) subcut inj 60 mgIndications:Senile osteoporosis 60 mg SC ONCE 10/06/2023 10/07/2023 Active documented as of this encounter (statuses as of 10/01/2023) Active Problems Problem Noted Date Diagnosed Date [...] as of this encounter (statuses as of 10/01/2023) Resolved Problems Problem Noted Date Diagnosed Date [...] as of this encounter (statuses as of 10/01/2023) Immunizations Name Administration Dates Next Due COVID-19 [...] this encounter Progress Notes * Pancho Perez, [facility] - 10/01/2023 8:16 AM EDT 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 Blood Pressure Goal: 140/90 mmHg Type of Alert: Yellow Current Hypertension Medications: Metoprolol ER 12.5mg QAM Lisinopril/HCTZ 20/12.5mg Take 2 tabs QAM (Max dose of lisinopril, some room on HCTZ) Aldactone 25mg QAM Previous antihypertensive use: Experiencing symptoms related to elevated BP: No Systolic Diastolic HR 125 61 71 133 63 64 126 92 70 149 61 71 136 63 68 120 85 66 Systolic Diastolic HR Average 132 71 68 Hi 149 92 71 Lo 120 61 64 Range 29 31 7 BP Readings from Last 3 Encounters: 09/22/23 128/60 08/24/23 110/56 08/11/23 120/56 Pulse Readings from Last 3 Encounters: 08/24/23 78 08/11/23 87 07/05/23 72 Recent Labs Units 08/24/23 1141 07/05/23 0910 02/04/23 1016 SODIUM - [facility] mmol/L 142 139 141 POTASSIUM - [facility] mmol/L 4.5 4.5 4.6 CHLORIDE - [facility] mmol/L 105 101 105 CO2 - [facility] mmol/L 22 23 25 CREATININE - [facility] mg/dL 1.3* 1.4* 1.2* BUN - [facility] mg/dL 26* 29* 25* ASSESSMENT & PLAN: BP averaging 132/71 over the past week (however it is elevated due to one outlier systolic reading of 149). At this time will not make adjustments due to BP average not being at goal to an outlier. MEDICATION CHANGES: none Hypertension Medications: Metoprolol ER 12.5mg QAM Lisinopril/HCTZ 20/12.5mg Take 2 tabs QAM (Max dose of lisinopril, some room on HCTZ) Aldactone 25mg QAM HEALTH MAINTENANCE INTERVENTIONS: Labs: Ordered & Scheduled: Up to date FOLLOW UP: PRN Pancho Perez [facility] Clinical Pharmacist - Pinking Machine Operator Medication Therapy Management [facility] 10/01/2023, 8:16 AM documented in this encounter Plan of Treatment Upcoming Encounters Date Type Department Care Team (Late st Contact Info) Description 10/04/2023 1:30 PM EDT Office Visit Allergy/Immunology [facility] [address] [facility] [place] [address] Felisa Garcia PA-C [address] [facility] [place] [address] 10/05/2023 11:00 AM EDT Imaging Radiology, [address] [place] [address] 10/06/2023 2:30 PM EDT Nurse Only Rheumatology [address] [place] [address] Pf, Nurse Rheum [address] [place] [address] [place] [address] 10/18/2023 1:10 PM EDT Anticoagulation Pharmacy, [facility] [address] [place] [address] Pharmacist2, [facility] [address] [place] [address] 11/22/2023 12:00 PM EDT Office Visit Pulmonary Medicine, [facility] [address] [facility] [place] [address] Stanley Chavez MD [address] [place] [address] 02/22/2024 11:15 AM EST Office Visit Dermatology [facility] [address] [place] [address] Phil Perez MD 200 [facility] [address] 03/09/2024 11:20 AM EST Office Visit General Internal Medicine [facility] [address] [place] [address] Phil Maldonado MD 200 [place] [address] 04/07/2024 11:30 AM EST Office Visit Nephrology, [facility] [address] [place] [address] Gena Walton PA-C [address] [place] [address] 04/11/2024 1:00 PM EST Office Visit Rheumatology [place] [address] [address] [place] [address] Tristan Richards MD [facility] [place] [address] Health Maintenance Due Date Last Done Comments COVID-19 Vaccine ( season) 2023 01/27/2023, 03/18/2022, 01/23/2021, Additional history exists Depression Screening 07/22/2023 07/21/2022 DTaP,Tdap,and Td Vaccines (2 - Td or Tdap) 09/08/2023 09/07/2013, 02/17/2010, 10/18/2001, Additional history exists DXA Scan 10/01/2023 09/30/2021, 07/0 07/2021, 09/25/2019, Additional history exists Influenza Vaccine (FLU shot) (#1) 2023 01/05/2023, 01/16/2022, 12/27/2020, Additional history exists GFR 02/24/2024 08/24/2023, 0 10/2023, 02/04/2023, Additional history exists CKD HGB USE SMARTSET 57587 07/04/202407/04, 07/05/2023, 02/04/2023, Additional history exists CKD PHOS USE SMARTSET 83241 08/10/202407/27, 08/25/2022, 06/26/2021, Additional history exists TSH 08/10/2024 08/11/2023, 10/2023, 02/04/2023, Additional history exists Albumin/Creatinine Ratio 08/11/2024 024, 08/26/2022, 06/30/2021, Additional history exists Zoster Vaccines Discontinued 02/10/2007 Pneumococcal Vaccine: 65+ Years Completed 07/20/2014, 01/30/2008, 10/16/1994 VITAMIN D LEVEL ONCE IN A LIFETIME-USE SMARTSET# 10330 Completed 08/24/2023, 04/01/2023, 11/13/2022, Additional history exists HPV (Gardasil) Vaccine Aged Out No lo nger eligible based on patient's age to complete this topic MENINGOCOCCAL (MENACTRA/MENVEO) Aged Out No longer eligible based on patient's age to complete this topic documented as of this encounter Medical Devices Implanted Type Area Relish Blender Device Identifier Shelf Expiration Date Model / Serial / Lot Lens Intraoc 22.0 - [id number] - [id number] Implanted:Qty: 1 on 07/01/2021 by Gee Hagen MD at OR [facility] Right: Eye BAUSCH & LOMB 02/25/2026 [id number] / [id number] Lens Intraoc 19.5 - [id number] - [id number] Implanted:Qty: 1 on 07/15/2021 by Gee Hagen MD at OR [facility] Left: Eye BAUSCH & LOMB 02/25/2026 [id number] / [id number] / documented as of this encounter Visit Diagnoses Diagnosis Essential hypertension with goal blood pressure less than 140/90- Primary documented in this encounter Care Teams Rock Breaker Relationship Specialty Start Date End Date Phil Maldonado MD 200 [facility], [place] [id number] PCP - General Internal Medicine 06/19/19 documented as of this encounter
--- OUTSIDE RECORDS SUMMARY | 2024-01-02 15:36 | External Medical Summary | Summary of Care ---
Author Name Unknown Organization [facility] Address [address] [place] [address] Phone [phone] Care Team Providers Care Repair Clerk Name Role Phone Phil Miller MD Primary Care Provider + Reason for Visit * Reason Comments eRx-Medication Refill Encounter Details Date Type Department Care Team (Late st Contact Info) Description 09/28/2023 Refill General Internal Medicine [facility] 200 [facility] [place] [address] Phil Miller MD [address] [place] [address] ETTA (generalized anxiety disorder) Allergies Active Allergy [...] Additional Information Patient taking differently:75 mcg Oral [id number], AT LEAST 30 MINUTES PRIOR TO BREAKFAST OR OTHER MEDS,Indications: Hypothyroidism, Reported on 05/26/2023 Azelastine HCl 0.1 % Nasal Solution (Astelin) Administer 2 Sprays into nostril in the morning and 2 Sprays before bedtime. 90 mL 3 01/15/20 Active Additional Information Patient taking differently:2 [place] NasalBID PRN, Rhinitis, Indications: Allergic Rhinitis, Reported [...] 02/10/20 Active Additional Information Patient taking differently:2 [place] Each Nostril Daily(AM),Indications: Allergic Rhinitis, Reported on [...] DAILY IN THE MORNING 30 Tablet 6 12/28/20 23 Active Additional Information Patient taking differently:, [...] MORNING 90 Tablet 1 08/04/19 24 Active Metoprolol Succinate ER 25 MG Oral Tablet Extended Release 24 Hour (toPROL XL)Indications:Esse ntial hypertension with goal blood pressure less than 140/90 TAKE 1/2 TABLET EVERY MORNING 45 Tablet 1 08/04/19 24 Active Montelukast Sodium [...] package directions 21 Tablet 09/13/19 24 Active Amoxicillin-Pot Clavulanate 875-125 MG Oral Tablet (Augmentin) Take 1 Tablet by mouth in the morning and 1 Tablet before bedtime. Do all this for 10 days. 20 Tablet 3 09/22/19 24 024 Active predniSONE 2.5 MG Oral Tablet (Deltasone) Take 1 Tablet by mouth in the morning. 30 Tablet 3 09/22/19 24 024 Active LORazepam 1 MG Oral Tablet (Ativan)Indications :ETTA (generalized anxiety disorder) Take 1 Tablet (1 mg) by mouth 3 times a day as needed for Anxiety. 30 Tablet 09/29/19 24 Active LORazepam 1 MG Oral Tablet (Ativan)Indications :ETTA (generalized anxiety disorder) Take 1 Tablet (1 mg) by mouth 3 times a day as needed for Anxiety. 30 Tablet 04 024 Discontinued Hospital, Clinic, or Other Facility Administered Medication Ordered Dose Route Frequency Start Date End Date Status Denosumab (Prolia) subcut inj 60 mgIndications:Senile osteoporosis 60 mg SC [id number] 03/04/2023 02/27/2024 Active documented as of this [...] Miscellaneous Notes * Telephone Encounter - Phil Miller MD - 09/29/2023 9:04 AM EDTSigned Prescriptions: Disp Refills LORazepam 1 MG Oral Tablet (Ativan) 30 Tab*0 Sig: Take 1 Tablet (1 mg) by mouth 3 times a day as needed for Anxiety. Authorizing Provider: PHIL MILLER * Telephone Encounter - Deniz Fritz [facility] - 09/29/2023 8:56 AM EDT Pending Prescriptions: Disp Refills LORazepam 1 MG Oral Tablet [Pharmacy Med N*30 Tab*0 Sig: Take 1 Tablet (1 mg) by mouth 3 times a day as needed for Anxiety. * Telephone Encounter - Denzi Fritz [facility] - 09/29/2023 8:55 AM EDT I have reviewed the patients controlled substance dispensing history in the Prescription Drug Monitoring Program in compliance with the [facility] regulations before prescribing a controlled substance. PDMP checked on 09/29/2023. Pending Prescriptions: Disp Refills LORazepam 1 MG Oral Tablet (Ativan) [Phar*30 Tab*0 Sig: Take 1 Tablet (1 mg) by mouth 3 times a day as needed for Anxiety. Last Visit: 08/11/2023 (in office), Visit date not found (telemedicine) Next Visit: 03/09/2024 Date medication was last filled: 07/08/23 Date medication is due for refill: 07/18/23 Pharmacy: [facility] [address] Is this request for a controlled substance? Yes and Urine Drug Screen Not completed Toxicology results: No results found. However, due to the size of the patient record, not all encounters were searched.Please check Results Review for a complete set of results. Please approve if appropriate. Thanks, Deniz Fritz, PharmD Clinical Pharmacist [facility] ([facility]) [phone] 09/29/2023, 8:55 AM documented in this encounter Plan of Treatment Upcoming Encounters Date Type Department Care Team (Late st Contact Info) Description 10/04/2023 1:30 PM EDT Office Visit Allergy/Immunology [facility] [employer] [address] [place] [address] Felisa Garcia PA-C [address] [place] [address] 10/05/2023 11:00 AM EDT Imaging Radiology, [place] [address] [address] 10/06/2023 2:30 PM EDT Nurse Only Rheumatology [place] [address] [address] Pf[facility] [address] 10/18/2023 1:10 PM EDT Anticoagulation Pharmacy, [facility] [place] [address] [place] [address] Pharmacist2, [facility] [address] [place], [place] [address] 11/22/2023 12:00 PM EDT Office Visit Pulmonary Medicine, [facility] [address] [place] [address] Stanley Chavez [facility] [address] [facility] [address] 02/22/2024 11:15 AM EST Office Visit Dermatology [facility] [address] [place], [place] [address] Phil Perez MD 200 [facility] [place], [place] [address] 03/09/2024 11:20 AM EST Office Visit General Internal Medicine [facility] [address] [place], [place] [address] Phil Miller MD 200 [facility] [place], [place] [address] 04/07/2024 11:30 AM EST Office Visit Nephrology, [facility] 200 [facility] [place], [place] [address] Gena Walton PA-C 200 [facility] [place], [place] [address] 04/11/2024 1:00 PM EST Office Visit Rheumatology [facility] [address] [place], [place] [address] Tristan Richards MD [address] [place], [place] [address] Health Maintenance Due Date Last Done Comments [...] Additional history exists CKD HGB USE SMARTSET 93373 07/04/202407/04, 07/05/2023, 02/04/2023, Additional history exists CKD PHOS USE SMARTSET 31471 08/10/202407/27, 08/25/2022, 06/26/2021, Additional history exists TSH 08/10/2024 08/11/2023, 0 10/2023, 02/04/2023, Additional history exists Albumin/Creatinine Ratio 08/11/2024 024, 08/26/2022, 06/30/2021, Additional history exists Zoster Vaccines Discontinued 02/10/2007 Pneumococcal Vaccine: 65+ Years Completed 07/20/2014, 01/30/2008, 10/16/1994 VITAMIN D LEVEL ONCE IN A LIFETIME-USE SMARTSET# 22202 Completed 08/24/2023, 04/01/2023, 11/13/2022, Additional history exists HPV (Gardasil) Vaccine Aged Out No lo nger eligible based on patient's age to complete this topic MENINGOCOCCAL (MENACTRA/MENVEO) Aged Out No longer eligible based on patient's age to complete this topic documented as of this encounter Medical Devices Implanted Type Area Braille Coder Device Identifier Shelf Expiration Date Model / Serial / Lot Lens Intraoc 22.0 - [id number] - [id number] Implanted:Qty: 1 on 07/01/2021 by Gee Hagen MD at OR [facility] Right: Eye [employer]USCH [employer] LOMB 02/25/2026 [id number] / [id number] / [id number] Lens Intraoc 19.5 - [id number] - [id number] Implanted:Qty: 1 on 07/15/2021 by Gee Hagen MD at [facility] Left: Eye BAUSCH & LOMB 02/25/2026 [id number] / [id number] / documented as of this encounter Visit Diagnoses Diagnosis ETTA (generalized anxiety disorder) Generalized anxiety disorder documented in this encounter Care Teams Repair Clerk Relationship Specialty Start Date End Date Phil Miller MD 200 [place] [address] PCP - General Internal Medicine 06/19/19 documented as of this encounter
--- OUTSIDE RECORDS SUMMARY | 2024-01-02 15:36 | External Medical Summary | Summary of Care ---
Author Name Unknown Organization [facility] Address [address] [place] [address] Phone [phone] Care Team Providers Care Locksmith Helper Name Role Phone Phil Maldonado MD Primary Care Provider + Reason for Visit * Reason Comments Allergy Return Encounter Details Date Type Department Care Team (Late st Contact Info) Description 10/04/2023 1:30 PM EDT Office Visit Allergy/Immunology [facility] [place] [address] [place] [address] Felisa Garcia PA-C [address] [place] [address] Nonallergic rhinitis*; Chronic cough; Nasal septal perforation; [...] 30-600 MG Oral Tablet Extended Release 12 HourIndications:Commodity Analyst giuliana Cough Take 1 Tablet by mouth [...] Additional Information Patient taking differently:75 mcg Oral [id number], AT LEAST 30 MINUTES PRIOR TO BREAKFAST OR OTHER MEDS,Indications: Hypothyroidism, Reported on 05/26/2023 Azelastine HCl 0.1 % Nasal Solution (Astelin) Administer 2 Sprays into nostril in the morning and 2 Sprays before bedtime. 90 mL 3 3 Active Additional Information Patient taking differently:2 [place] NasalBID PRN, Rhinitis, Indications: Allergic Rhinitis, Reported [...] 3 Active Additional Information Patient taking differently:2 [place] Each Nostril Daily(AM),Indications: Allergic Rhinitis, Reported on [...] inj 60 mgIndications:Senile osteoporosis 60 mg SC [id number] 03/04/2023 02/27/2024 Active Denosumab (Prolia) subcut inj [...] documented in this encounter Progress Notes * Andrew Patricio MD - 10/05/2023 3:24 PM EDT I have reviewed the advanced practitioner's documentation on the date of service referenced in note, and I agree with, and take responsibility for the plan of care. Andrew Patricio MD * Felisa Garcia PA-C - 10/04/2023 1:58 [...] was given benadryl in the ED at [facility] and observed for several hours with resolution of symptoms. She informed geological survey field assistant who discontinued the azithromycin. She has not had any similar symptoms since. She does continue to take Lisinopril forhtn which she has been on for 40+ years. She denies new foods or insect stings. As above, she was being treated for suspected bronchitis at the time. She had returned from [place] where she was exposed tosick contacts (grandchildren). [...] from a pulmonology standpoint. She was started edgar course of augmentin which she takes for 10 days every month, and she was prescribed a daily dose of prednisone 2.5 mg. She does continues Singulair 10 mg once daily and takes Mucinex 1-2 times per day. She has been using her flutter valve [...] in a few months. She was in [place] for two months and did well there. [...] performed by Luis Mcdaniel MD at ENDOSCOPY [facility] EGD, FLEXIBLE, DIAGNOSTIC 07/11/2013 ESOPHAGOGASTRODUODENOSCOPY (EGD), FLEXIBLE, TRANSORAL, DIAGNOSTIC performed by Brandon Silva MD at ENDOSCOPY [facility] EGD, FLEXIBLE, DIAGNOSTIC 09/02/2022 sm hiatal hernia / ESOPHAGOGASTRODUODENOSCOPY (EGD), FLEXIBLE, TRANSORAL, DIAGNOSTIC performed by Rosy Alanis DO at ENDOSCOPY [facility] LIGATE/CUT OVIDUCT(S) 03/29/1983 Tubal Ligation NASAL ENDOSCOPY, DIAGNOSTIC 05/27/1993 Nasal Endoscopy,Dx NASAL ENDOSCOPY, DX W/SINUSOSCOPY Sinus Nasal/Maxill Endoscopy,Dx NASAL ENDOSCOPY, DX W/SINUSOSCOPY Sinus Nasal/Sphenoid Endoscopy,Dx REMOVE CATARACT, INSERT LENS PROSTH Right 07/01/2021 Right EXTRACAPSULAR CATARACT REMOVAL WITH INTRAOCULAR LENS performed by Gee Hagen MD at [facility] REMOVE CATARACT, INSERT LENS PROSTH Left 07/15/2021 Left EXTRACAPSULAR CATARACT REMOVAL WITH INTRAOCULAR LENS performed by Gee Hagen MD at [facility] REMOVE GALLBLADDER 03/29/2000 REMOVE TONSILS & [...] Ellipta 100-62.5-25 MCG/ACT Aerosol Powder Breath Activated (Bxoqmrvutsg-Fbcpexlprwqg-Qgeoxccrsf) Inhale 1 Puff by mouth in the [...] history: The patient [place] [facility] with a gas heating system and air conditioning. The home has no issues with cockroaches. She will occasionally use scented candles. There are nopets within the home. The patient previously used to work for [employer] but is currently retired. BP 118/72 (BP [...] <0.10 Acremonium Kiliense IgE <0.10 kUa/L <0.10 [place] Maple IgE <0.10 kUa/L <0.10 Birch IgE <0.10 kUa/L <0.10 [place] IgE <0.10 kUa/L <0.10 Elm IgE <0.10 kUa/L <0.10 [place] Tree IgE <0.10 kUa/L <0.10 [place] IgE <0.10 kUa/L <0.10 White Red IgE <0.10 kUa/L <0.10 Pecan Ogle IgE <0.10 kUa/L <0.10 Common Ragweed IgE <0.10 kUa/L <0.10 Mugwort IgE <0.10 kUa/L <0.10 Greek Plantain IgE <0.10 kUa/L <0.10 Mtz's Quarter IgE <0.10 kUa/L <0.10 Cocklebur IgE <0.10 kUa/L <0.10 Pigweed IgE <0.10 kUa/L <0.10 Sheep [facility] IgE <0.10 kUa/L <0.10 IgE <=214.0 kU/L 5.2 ASSESSMENT AND PLAN: ICD-10-CM 1. 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 Chronic cough R05.3 3. Nasal septal perforation J34.89 4. Bronchiectasis without complication (HCC) J47.9 5. Adverse reaction to antibiotic T36.95XA [...] concerns. Felisa Garcia PA-C Allergy and Immunology [facility] Supervising Physician: Andrew Patricio MD Type of [...] the provider listed above.) PCP: PHIL MALDONADO [facility] [place] [address] documented in this encounter Nursing Notes * Marti Castillo LPN - 10/04/2023 1:21 PM EDT The pt has been properly identified by confirmation of name and date of . Pt here for return visit. documented in this encounter Plan of Treatment Upcoming Encounters Date Type Department Care Team (Late st Contact Info) Description 10/06/2023 2:30 PM EDT Nurse Only Rheumatology [address] [place] [address] Pf, Nurse Rheum [address] [place] [address] [place] [address] 10/18/2023 1:10 PM EDT Anticoagulation Pharmacy, [facility] [address] [place] [address] Pharmacist2, [facility] [address] [place] [address] 11/22/2023 12:00 PM EDT Office Visit Pulmonary Medicine, [facility] [address] [place] [address] Stanley Chavez MD [facility] [place] [address] 02/22/2024 11:15 AM EST Office Visit Dermatology [facility] [address] [place] [address] Phil Perez MD [address] [place] [address] 03/09/2024 11:20 AM EST Office Visit General Internal Medicine [facility] [address] [place] [address] Phil Maldonado MD [address] [place] [address] 04/07/2024 11:30 AM EST Office Visit Nephrology, [facility] 200 [facility] [place], [place] [address] Gena Walton PA-C 200 [facility] [place], [place] [address] 04/11/2024 1:00 PM EST Office Visit Rheumatology [place] [address] [facility] [place], [place] [address] Tristan Richards MD [address] [place], [place] [address] Health Maintenance Due Date Last Done Comments [...] Additional history exists CKD HGB USE SMARTSET 00594 07/04/202407/04, 07/05/2023, 02/04/2023, Additional history exists CKD PHOS USE SMARTSET 84624 08/10/2024 0507/2023, 08/25/2022, 06/26/2021, Additional history exists TSH 08/10/2024 08/11/2023, 04/0 10/2023, 02/04/2023, Additional history exists Albumin/Creatinine Ratio 08/11/2024 024, 08/26/2022, 06/30/2021, Additional history exists Zoster Vaccines Discontinued 02/10/2007 Pneumococcal Vaccine: 65+ Years Completed 07/20/2014, 01/30/2008, 10/16/1994 VITAMIN D LEVEL ONCE IN A LIFETIME-USE SMARTSET# 21878 Completed 08/24/2023, 04/01/2023, 11/13/2022, Additional history exists HPV (Gardasil) Vaccine Aged Out No lo nger eligible based on patient's age to complete this topic MENINGOCOCCAL (MENACTRA/MENVEO) Aged Out No longer eligible based on patient's age to complete this topic documented as of this encounter Medical Devices Implanted Type Area School Bus Inspector Device Identifier Shelf Expiration Date Model / Serial / Lot Lens Intraoc 22.0 - [id number] - [id number] Implanted:Qty: 1 on 07/01/2021 by Gee Hagen MD at OR [facility] Right: Eye BAUSCH & LOMB 02/25/2026 [id number] / [id number] / [id number] Lens Intraoc 19.5 - [id number] - [id number] Implanted:Qty: 1 on 07/15/2021 by Gee Hagen MD at OR [facility] Left: Eye BAUSCH & LOMB 02/25/2026 [id number] / [id number] / documented as of this encounter Visit Diagnoses Diagnosis Nonallergic rhinitis- Primary Chronic rhinitis Chronic cough Cough Nasal septal perforation Other diseases of nasal cavity and sinuses Bronchiectasis without complication (HCC) Bronchiectasis without acute exacerbation Adverse reaction to antibiotic Unspecified adverse effect of other drug, medicinal and biological substance documented in this encounter Care Teams Locksmith Helper Relationship Specialty Start Date End Date Phil Maldonado MD [address] [place] [address] PCP - General Internal Medicine 06/19/19 documented as of this encounter"
--- OUTSIDE RECORDS SUMMARY | 2024-01-02 15:36 | External Medical Summary | Summary of Care ---
Author Name Unknown Organization [facility] Address [address] [place] [address] Phone [phone] Care Team Providers Care Solar Installer Name Role Phone Phil Maldonado MD Primary Care Provider + Reason for Visit * Reason Onset Date Comments Medication Administration 10/06/2023 Prolia * Precert (Within 10 days (routine)) - Authorized Specialty Diagnoses / Procedures Referred By Contac t Referred To Contact Rheumatology Diagnoses Age-related osteoporosis without current pathological fracture Procedures DENOSUMAB 1MG, [place] [address] [facility] [address] [place] [address] Referral ID Status Reason Start Date Expiration Date V isits Requested Visits Authorized [id number] Authorized Precert 12/13/2019 03/28/2099 99 [phone] Encounter Details Date Type Department Care Team (Late st Contact Info) Description 10/06/2023 2:30 PM EDT Nurse Only Rheumatology [address] [place] [address] Pf, Nurse Rheum [address] [place] [address] [place] [address] Medication Administration (Prolia) Allergies Active Allergy Reactions Criticality Noted Date Comments Azithromycin Anaphylaxis High 08/11/2023 Sulfa Antibiotics Hives 10/29/1998 documented as of this encounter (statuses as of 10/06/2023) Medications Medication Sig Dispensed Refills Start Date [...] 1 tablet daily Or as directed by [facility] 90 Tablet 3 3 Active Additional Information Patient taking differently:, Take 1 tablet daily Or as directed by [facility] clinic,Indications: Prophylaxis of DVT in Non-Haemorrhagic Stroke Patients, takes in the evening, Reported on 05/26/2023 Mucinex DM 30-600 MG Oral Tablet Extended Release 12 HourIndications:Sound Recording Technician giuliana Cough Take 1 Tablet by mouth [...] Additional Information Patient taking differently:75 mcg Oral [id number], AT LEAST 30 MINUTES PRIOR TO BREAKFAST OR OTHER MEDS,Indications: Hypothyroidism, Reported on 05/26/2023 Azelastine HCl 0.1 % Nasal Solution (Astelin) Administer 2 Sprays into nostril in the morning and 2 Sprays before bedtime. 90 mL 3 3 Active Additional Information Patient taking differently:2 [place] NasalBID PRN, Rhinitis, Indications: Allergic Rhinitis, Reported [...] 3 Active Additional Information Patient taking differently:2 [place] Each Nostril Daily(AM),Indications: Allergic Rhinitis, Reported on [...] inj 60 mgIndications:Senile osteoporosis 60 mg SC [id number] 03/04/2023 02/27/2024 Active Denosumab (Prolia) subcut inj 60 mgIndications:Senile osteoporosis 60 mg SC ONCE 10/06/2023 10/06/2023 Ended documented as of this encounter (statuses as of 10/06/2023) Active Problems Problem Noted Date Diagnosed Date [...] as of this encounter (statuses as of 10/06/2023) Resolved Problems Problem Noted Date Diagnosed Date [...] as of this encounter (statuses as of 10/06/2023) Immunizations Name Administration Dates Next Due COVID-19 [...] Sign Reading Time Taken Comments Blood Pressure - - Pulse - - Temperature 36.6 C (97.8 F) 10/06/2023 2:56 PM ED T Respiratory Rate - - Oxygen Saturation - - Inhaled Oxygen Concentration - - Weight - - Height - - Body Mass Index - - documented in this encounter Progress Notes * Connie Kinsey LPN - 10/06/2023 2:56 PM EDT Horacio Yeung presents today for administration of Prolia. She understands the benefits and risks ofthis treatment. An educational pamphlet was given to the patient. Prolia 60 mg was administered subcutaneously. The patient tolerated the procedure without problems. She will return in 6 months for the next injection and evaluation. Connie Kinsey LPN documented in this encounter Plan of Treatment Upcoming Encounters Date Type Department Care Team (Late st Contact Info) Description 10/07/2023 4:30 PM EDT Imaging Radiology [facility] [address] [facility] [address] [facility] [place] [address] 10/18/2023 1:10 PM EDT Anticoagulation Pharmacy, [facility] [place] [address] [facility] [place] [address] Pharmacist2, [facility] 200 [facility] [place] [address] 11/22/2023 12:00 PM EDT Office Visit Pulmonary Medicine, [facility] [address] [place] [address] Stanley Chavez MD [address] [place] [address] 02/22/2024 11:15 AM EST Office Visit Dermatology [facility] [address] [facility] [place], [place] [address] Phil Perez MD [address] [facility] [place], [place] [address] 03/09/2024 11:20 AM EST Office Visit General Internal Medicine [facility] [address] [facility] [place], [place] [address] Phil Maldonado MD [address] [facility] [place], [place] [address] 04/07/2024 11:30 AM EST Office Visit Nephrology, [facility] [address] [facility] [place], [place] [address] ZeGena hoffman PA-C [address] [facility] [place], [place] [address] 04/11/2024 1:00 PM EST Office Visit Rheumatology [place] [address] [employer] [place], [place] [address] Tristan Richards MD [facility] [place] [employer] [place], [place] [address] Health Maintenance Due Date Last Done Comments COVID-19 Vaccine (2022- season) 2023 01/27/2023, 03/18/2022, 01/23/2021, Additional history exists Depression Screening 07/22/2023 07/21/2022 DTaP,Tdap,and Td Vaccines (2 - Td or Tdap) 09/08/2023 09/07/2013, 02/17/2010, 10/18/2001, Additional history exists Influenza Vaccine (FLU shot) (#1) 2023 01/05/2023, 01/16/2022, 12/27/2020, Additional history exists GFR 02/24/2024 08/24/2023, 04/0 10/2023, 02/04/2023, Additional history exists CKD HGB USE SMARTSET 71170 07/04/202407/04, 07/05/2023, 02/04/2023, Additional history exists CKD PHOS USE SMARTSET 16276 08/10/202407/27, 08/25/2022, 06/26/2021, Additional history exists TSH 08/10/2024 08/11/2023, 0 10/2023, 02/04/2023, Additional history exists Albumin/Creatinine Ratio 08/11/2024 024, 08/26/2022, 06/30/2021, Additional history exists DXA Scan 10/04/2025 10/05/2023, 07/0 07/2021, 09/30/2021, Additional history exists Zoster Vaccines Discontinued 02/10/2007 Pneumococcal Vaccine: 65+ Years Completed 07/20/2014, 01/30/2008, 10/16/1994 VITAMIN D LEVEL ONCE IN A LIFETIME-USE SMARTSET# 22334 Completed 08/24/2023, 04/01/2023, 11/13/2022, Additional history exists HPV (Gardasil) Vaccine Aged Out No lo nger eligible based on patient's age to complete this topic MENINGOCOCCAL (MENACTRA/MENVEO) Aged Out No longer eligible based on patient's age to complete this topic documented as of this encounter Medical Devices Implanted Type Area Poacher Wringer Operator Device Identifier Shelf Expiration Date Model / Serial / Lot Lens Intraoc 22.0 - [id number] - [id number] Implanted:Qty: 1 on 07/01/2021 by Gee Hagen MD at OR [facility] Right: Eye BAUSCH & LOMB 02/25/2026 [id number] / [id number] / [id number] Lens Intraoc 19.5 - [id number] - [id number] Implanted:Qty: 1 on 07/15/2021 by Gee Hagen MD at OR [facility] Left: Eye BAUSCH & LOMB 02/25/2026 [id number] / [id number] / documented as of this encounter Visit Diagnoses Diagnosis Senile osteoporosis- Primary documented in this encounter Administered Medications Inactive Administered Medications - up to 3 most recent administrations Medication Order MAR Action Action Date Dose Rate Site Denosumab (Prolia) subcut inj 60 mg 60 mg, Subcutaneous, ONCE, On Wed10/06/23 at 1430, For 1 dose Given 10/06/2023 2:55 PM EDT 60 mg Arm L eft Upper documented in this encounter Care Teams Solar Installer Relationship Specialty Start Date End Date Phil Maldonado MD [address] [place] [address] PCP - General Internal Medicine 06/19/19 documented as of this encounter
--- OUTSIDE RECORDS SUMMARY | 2024-01-02 15:36 | External Medical Summary | Summary of Care ---
Author Name Unknown Organization [facility] Address [address] [place] [address] Phone [phone] Care Team Providers Care Camera Repairman Name Role Phone Phil Maldonado MD Primary Care Provider + Reason for Visit * Reason Onset Date Comments Home Monitoring Alarm 10/01/2023 Encounter Details Date Type Department Care Team (Late st Contact Info) Description 10/01/2023 Home Monitoring Care Coordination [address], [place] [id number] Lucie Cade, DOOR TO DOOR SALESMAN Essential hypertension with goal blood pressure less [...] 30-600 MG Oral Tablet Extended Release 12 HourIndications:Inspector Plug Seam giuliana Cough Take 1 Tablet by mouth [...] Additional Information Patient taking differently:75 mcg Oral [id number], AT LEAST 30 MINUTES PRIOR TO BREAKFAST OR OTHER MEDS,Indications: Hypothyroidism, Reported on 05/26/2023 Azelastine HCl 0.1 % Nasal Solution (Astelin) Administer 2 Sprays into nostril in the morning and 2 Sprays before bedtime. 90 mL 3 3 Active Additional Information Patient taking differently:2 [place] NasalBID PRN, Rhinitis, Indications: Allergic Rhinitis, Reported [...] 3 Active Additional Information Patient taking differently:2 [place] Each Nostril Daily(AM),Indications: Allergic Rhinitis, Reported on [...] inj 60 mgIndications:Senile osteoporosis 60 mg SC [id number] 03/04/2023 02/27/2024 Active Denosumab (Prolia) subcut inj [...] this encounter Progress Notes * Pancho Perez [facility] - 10/01/2023 8:14 AM EDT See alternate encounter. Panhco Perez, PharmD, BCACP, [facility] Clinical Pharmacist 10/01/2023, 8:14 AM * Lucie Cade LPN - 10/01/2023 8:08 AM EDT Horacio Yeung [phone] Horacio Yeung is currently participating in the [employer] Hypertension Management Program and had a reading on 09/30/23 of 125/61. Pt has alerted for an Average BP over 7 days >/= 130/80 . Parameters are currently set as follows: Average BP over 7 days >/= 130/80 Singular Systolic BP Reading </= 90 or >/=180 Singular Diastolic BP Reading </= 50 or >/=120 Patient is not reporting new symptoms or concerns. T Please review the recent history of home [...] Description 10/01/2023 9:30 AM EDT Telemedicine Pharmacy, [facility] [place] 200 [facility] [place] [address] Pharmacist2, [facility] 200 [facility] [place] [address] Essential hypertension with goal blood pressure less than 140/90* 10/04/2023 1:30 PM EDT Office Visit Allergy/Immunology [facility] [address] [place] [place] [address] Felisa Garcia PA-C 200 [facility] [place] [address] 10/05/2023 11:00 AM EDT Imaging Radiology, [place] [address] [facility] [place] [address] 10/06/2023 2:30 PM EDT Nurse Only Rheumatology [address] [place] [address] Pf, Nurse Rheum [facility] [place] [address] 10/18/2023 1:10 PM EDT Anticoagulation Pharmacy, [facility] [address] [facility] [place] [address] Pharmacist2, [facility] [address] [place] [address] 11/22/2023 12:00 PM EDT Office Visit Pulmonary Medicine, [facility] 132 [place] [address] Stanley Chavez MD Formerly named [facility] [place] [address] 02/22/2024 11:15 AM EST Office Visit Dermatology [facility] [address] [facility] [address] [place], [place] [address] Phil Perez MD [address] [place] [address] 03/09/2024 11:20 AM EST Office Visit General Internal Medicine [facility] [address] [place] [address] Phil Maldonado MD 200 [facility] [place] [address] 04/07/2024 11:30 AM EST Office Visit Nephrology, [facility] [address] [facility] [place] [address] Gena Walton PA-C 200 [facility] [place] [address] 04/11/2024 1:00 PM EST Office Visit Rheumatology [facility] [address] [place] [address] Tristan Richards MD [address] [employer] [place] [address] Health Maintenance Due Date Last Done Comments [...] Additional history exists CKD HGB USE SMARTSET 53407 07/04/202407/04, 07/05/2023, 02/04/2023, Additional history exists CKD PHOS USE SMARTSET 10487 08/10/202407/27, 08/25/2022, 06/26/2021, Additional history exists TSH 08/10/2024 08/11/2023, 04/0 10/2023, 02/04/2023, Additional history exists Albumin/Creatinine Ratio 08/11/2024 024, 08/26/2022, 06/30/2021, Additional history exists Zoster Vaccines Discontinued 02/10/2007 Pneumococcal Vaccine: 65+ Years Completed 07/20/2014, 01/30/2008, 10/16/1994 VITAMIN D LEVEL ONCE IN A LIFETIME-USE SMARTSET# 97958 Completed 08/24/2023, 04/01/2023, 11/13/2022, Additional history exists HPV (Gardasil) Vaccine Aged Out No lo nger eligible based on patient's age to complete this topic MENINGOCOCCAL (MENACTRA/MENVEO) Aged Out No longer eligible based on patient's age to complete this topic documented as of this encounter Medical Devices Implanted Type Area Upfitter Device Identifier Shelf Expiration Date Model / Serial / Lot Lens Intraoc 22.0 - [id number] - [id number] Implanted:Qty: 1 on 07/01/2021 by Gee Hagen MD at OR [facility] Right: Eye BAUSCH & LOMB 02/25/2026 [id number] / [id number] / [id number] Lens Intraoc 19.5 - [id number] - [id number] Implanted:Qty: 1 on 07/15/2021 by Gee Hagen MD at OR [facility] Left: Eye BAUSCH & LOMB 02/25/2026 [id number] / [id number] / documented as of this encounter Visit Diagnoses Diagnosis Essential hypertension with goal blood pressure less than 140/90- Primary Essential hypertension with goal blood pressure less than 140/90- Primary documented in this encounter Care Teams Camera Repairman Relationship Specialty Start Date End Date Phil Maldonado MD 200 [place] [address] PCP - General Internal Medicine 06/19/19 documented as of this encounter
--- OUTSIDE RECORDS SUMMARY | 2024-01-02 15:36 | External Medical Summary | Summary of Care ---
Author Name Unknown Organization [facility] Address [address] [place] [address] Phone [phone] Care Team Providers Care Sports Statistician Name Role Phone Phil Maldonado MD Primary Care Provider + Reason for Visit * Reason Onset Date Comments Order Request 09/29/2023 prolia Encounter Details Date Type Department Care Team (Late st Contact Info) Description 09/29/2023 Telephone Rheumatology [facility] [address] [place] [address] Tristan Richards MD [address] [facility] [place] [address] Order Request (prolia) Allergies Active Allergy Reactions Criticality Noted Date [...] 30-600 MG Oral Tablet Extended Release 12 HourIndications:Floor Worker Transfer Bay giuliana Cough Take 1 Tablet by mouth [...] Additional Information Patient taking differently:75 mcg Oral [id number], AT LEAST 30 MINUTES PRIOR TO BREAKFAST OR OTHER MEDS,Indications: Hypothyroidism, Reported on 05/26/2023 Azelastine HCl 0.1 % Nasal Solution (Astelin) Administer 2 Sprays into nostril in the morning and 2 Sprays before bedtime. 90 mL 3 3 Active Additional Information Patient taking differently:2 [place] NasalBID PRN, Rhinitis, Indications: Allergic Rhinitis, Reported [...] 3 Active Additional Information Patient taking differently:2 [place] Each Nostril Daily(AM),Indications: Allergic Rhinitis, Reported on [...] inj 60 mgIndications:Senile osteoporosis 60 mg SC [id number] 03/04/2023 02/27/2024 Active Denosumab (Prolia) subcut inj [...] State [place]annie Mi [address] [place] [address] Felisa Garcia PA-C [address] [place] [address] 10/05/2023 11:00 AM EDT Imaging Radiology, [place] [id number] [facility] [place] [address] 10/06/2023 2:30 PM EDT Nurse Only Rheumatology [facility] [address] [facility] [place], [place] [address] Pf, Nurse Rheum [facility] [place] [address] 10/18/2023 1:10 PM EDT Anticoagulation Pharmacy, [facility] [address] [place] [address] Pharmacist2, [facility] [address] [place], [place] [address] 11/22/2023 12:00 PM EDT Office Visit Pulmonary Medicine, [facility] 132 [facility] [place] [address] Stanley Chavez MD [address] [facility] [address] 02/22/2024 11:15 AM EST Office Visit Dermatology [facility] [address] [place], [place] [address] Phil Perez MD [address] [place] [address] 03/09/2024 11:20 AM EST Office Visit General Internal Medicine [facility] [address] [place], [place] [address] Phil Maldonado MD [address] [place], [place] [address] 04/07/2024 11:30 AM EST Office Visit Nephrology, [facility] [address] [place] [address] Gena Walton PA-C [address] [place], [place] [address] 04/11/2024 1:00 PM EST Office Visit Rheumatology [place] [address] [facility] [place] [address] Tristan Richards MD [address] [facility] [place] [address] Health Maintenance Due Date Last Done Comments [...] Additional history exists CKD HGB USE SMARTSET 05031 07/04/202407/04, 07/05/2023, 02/04/2023, Additional history exists CKD PHOS USE SMARTSET 05873 08/10/202407/27, 08/25/2022, 06/26/2021, Additional history exists TSH 08/10/2024 08/11/2023, 04/0 10/2023, 02/04/2023, Additional history exists Albumin/Creatinine Ratio 08/11/20242 024, 08/26/2022, 06/30/2021, Additional history exists Zoster Vaccines Discontinued 02/10/2007 Pneumococcal Vaccine: 65+ Years Completed 07/20/2014, 01/30/2008, 10/16/1994 VITAMIN D LEVEL ONCE IN A LIFETIME-USE SMARTSET# 05045 Completed 08/24/2023, 04/01/2023, 11/13/2022, Additional history exists HPV (Gardasil) Vaccine Aged Out No lo nger eligible based on patient's age to complete this topic MENINGOCOCCAL (MENACTRA/MENVEO) Aged Out No longer eligible based on patient's age to complete this topic documented as of this encounter Medical Devices Implanted Type Area Quality Assurance Qa Lab Analyst Device Identifier Shelf Expiration Date Model / Serial / Lot Lens Intraoc 22.0 - [id number] - [id number] Implanted:Qty: 1 on 07/01/2021 by Gee Hagen MD at OR [facility] Right: Eye BAUSCH & LOMB 02/25/2026 [id number] / [id number] / [id number] Lens Intraoc 19.5 - [id number] - [id number] Implanted:Qty: 1 on 07/15/2021 by Gee Hagen MD at OR [facility] Left: Eye BAUSCH & LOMB 02/25/2026 [id number] / [id number] / documented as of this encounter Visit Diagnoses Diagnosis Senile osteoporosis- Primary documented in this encounter Care Teams Sports Statistician Relationship Specialty Start Date End Date Phil Maldonado MD [address] [place] [address] PCP - General Internal Medicine 06/19/19 documented as of this encounter
--- OUTSIDE RECORDS SUMMARY | 2024-01-02 15:37 | External Medical Summary | Summary of Care ---
Author Name Unknown Organization [facility] Address [address] [place] [address] Phone [phone] Care Team Providers Care Predatory Animal Trapper Name Role Phone Phil Maldonado MD Primary Care Provider + Reason for Visit * Reason Onset Date Comments Remote Patient Monitoring Alert 09/15/2023 Encounter Details Date Type Department Care Team (Late st Contact Info) Description 09/15/2023 Home Monitoring Care Coordination [address], [place] [id number] HepShruti cash LPN HTN, goal below 130/80*; Essential hypertension with goal blood pressure less than 140/90 Allergies Active Allergy Reactions Criticality Noted Date Comments Azithromycin Anaphylaxis High 08/11/2023 Sulfa Antibiotics Hives 10/29/1998 documented as of this encounter (statuses as of 09/15/2023) Medications Medication Sig Dispensed Refills Start Date [...] 30-600 MG Oral Tablet Extended Release 12 HourIndications:First Aid Nurse giuliana Cough Take 1 Tablet by mouth [...] Additional Information Patient taking differently:75 mcg Oral [id number], AT LEAST 30 MINUTES PRIOR TO BREAKFAST OR OTHER MEDS,Indications: Hypothyroidism, Reported on 05/26/2023 Azelastine HCl 0.1 % Nasal Solution (Astelin) Administer 2 Sprays into nostril in the morning and 2 Sprays before bedtime. 90 mL 3 3 Active Additional Information Patient taking differently:2 [place] NasalBID PRN, Rhinitis, Indications: Allergic Rhinitis, Reported [...] 3 Active Additional Information Patient taking differently:2 [place] Each Nostril Daily(AM),Indications: Allergic Rhinitis, Reported on [...] IN THE MORNING,Indications: Hypertension, Reported on 05/26/2023 LORazepam 1 MG Oral Tablet (Ativan)Indications: ETTA (generalized anxiety disorder) Take 1 Tablet (1 mg) by mouth 3 times a day as needed for Anxiety. 30 Tablet 4 Active Lisinopril-hydroCHLO ROthiazide 20-12.5 MG Oral TabletIndications:Hy pertension [...] morning. 60 Blister Dosing Unit 4 Active Amoxicillin-Pot Clavulanate 875-125 MG Oral Tablet (Augmentin) Take 1 Tablet by mouth in the morning and 1 Tablet before bedtime. Do all this for 14 days. 28 Tablet 4 09/27/19 24 Active methylPREDNISolone 4 MG Oral Tablet Therapy Pack (Medrol Dosepack) follow package directions 21 Tablet 4 Active Hospital, Clinic, or Other Facility Administered Medication Ordered Dose Route Frequency Start Date End Date Status Denosumab (Prolia) subcut inj 60 mgIndications:Senile osteoporosis 60 mg SC [id number] 03/04/2023 02/27/2024 Active documented as of this encounter (statuses as of 09/15/2023) Active Problems Problem Noted Date Diagnosed Date Hypertensive kidney disease with stage 3b chronic [...] as of this encounter (statuses as of 09/15/2023) Resolved Problems Problem Noted Date Diagnosed Date [...] as of this encounter (statuses as of 09/15/2023) Immunizations Name Administration Dates Next Due COVID-19 [...] 9:31 AM EDT Sexual Orientation Straight 06/19/2019 9 :31 AM EDT Job Start Date Occupation Industry Not on file Not on file Not on file documented as of this encounter Progress Notes * Pancho Perez, [facility] - 09/15/2023 10:32 AM EDT Discussed BP with patient at recent DM visit. Pt made clinic aware she was likely to be going through very stressful situations due to her husbands health. Will delay any changes at this time and will consider changes again in 2 weeks if BP readings alert above goal. Systolic Diastolic HR 142 83 136 82 140 78 128 60 123 83 146 63 Systolic Diastolic HR Average 136 75 #DIV/0! Hi 146 83 0 Lo 123 60 0 Range 23 23 0 Pancho Perez, PharmD, BCACP, [facility] Clinical Pharmacist 09/15/2023, 10:40 AM * Shruti Portillo LPN - 09/15/2023 9:07 AM EDT Horacio Yeung [id number] Horacio Yeung is currently participating in the [employer] Hypertension Management Program and had a reading on 09/15/2023 of 142/53. Pt has alerted for an Average BP over 7 days >/= 130/80 . Parameters are currently set as follows: Average BP over 7 days >/= 130/80 Singular Systolic BP Reading </= 90 or >/=180 Singular Diastolic BP Reading </= 50 or >/=120 Patient is not reporting new symptoms, however is currently on a steroid taper and antibiotics fromPulmonary d/t a persistent cough. The patient does have all her blood [...] Care Team (Late st Contact Info) Description 09/22/2023 10:00 AM EDT Imaging Radiology [address], [place] [address] [facility] [place] [address] 09/22/2023 12:00 PM EDT Office Visit Pulmonary Medicine, [facility] [address] [facility] [place] [address] Stanley Chavez MD [address] [place] [address] 10/04/2023 11:00 AM EDT Imaging Radiology, [facility] [address] [facility] [place] [address] 10/04/2023 1:30 PM EDT Office Visit Allergy/Immunology [facility] [address] [place] [address] Felisa Garcia PA-C [address] [place] [address] 10/06/2023 2:30 PM EDT Nurse Only Rheumatology [facility] [address] [facility] [place] [address] Pf, Nurse Rheum [address] [facility] [place], [place] [address] 10/18/2023 1:10 PM EDT Anticoagulation Pharmacy, [facility] [address] [place] [address] Pharmacist2, [facility] [address] [place] [address] 02/22/2024 11:15 AM EST Office Visit Dermatology [facility] [address] [place] [address] Phil Perez MD [address] [place] [address] 03/09/2024 11:20 AM EST Office Visit General Internal Medicine [facility] [address] [place] [address] Phil Maldonado MD [address] [place], [place] [address] 04/07/2024 11:30 AM EST Office Visit Nephrology, [facility] [place] [address] [facility] [place], [place] [address] Gena Walton PA-C 200 [facility] [place] [address] 04/11/2024 1:00 PM EST Office Visit Rheumatology [place] [address] [facility] [place] [address] Tristan Richards MD [address] [place], [place] [address] Health Maintenance Due Date Last Done Comments COVID-19 Vaccine ( season) 2023 01/27/2023, 03/18/2022, 01/23/2021, Additional history exists Depression Screening 07/22/2023 07/21/2022 DTaP,Tdap,and Td Vaccines (2 - Td or Tdap) 09/08/2023 09/07/2013, 02/17/2010, 10/18/2001, Additional history exists DXA Scan 10/01/2023 09/30/2021, 070 07/2021, 09/25/2019, Additional history exists GFR 02/24/2024 08/24/2023, 0 10/2023, 02/04/2023, Additional history exists CKD HGB USE SMARTSET 90079 07/04/202407/04, 07/05/2023, 02/04/2023, Additional history exists CKD PHOS USE SMARTSET 76020 08/10/202407/27, 08/25/2022, 06/26/2021, Additional history exists TSH 08/10/2024 08/11/2023, 040 10/2023, 02/04/2023, Additional history exists Albumin/Creatinine Ratio 08/11/2024 024, 08/26/2022, 06/30/2021, Additional history exists Zoster Vaccines Discontinued 02/10/2007 Pneumococcal Vaccine: 65+ Years Completed 07/20/2014, 01/30/2008, 10/16/1994 Influenza Vaccine (FLU shot) Completed 01/05/2023, 01/16/2022, 12/27/2020, Additional history exists VITAMIN D LEVEL ONCE IN A LIFETIME-USE SMARTSET# 10184 Completed 08/24/2023, 04/01/2023, 11/13/2022, Additional history exists GARDASIL-HPV IMMUNIZATION SERIES Aged Out No longer eligible based on patient's age to complete this topic MENINGOCOCCAL (MENACTRA/MENVEO) Aged Out No longer eligible based on patient's age to complete this topic documented as of this encounter Medical Devices Implanted Type Area Supervisor Asbestos Textile Device Identifier Shelf Expiration Date Model / Serial / Lot Lens Intraoc 22.0 - [id number] - [id number] Implanted:Qty: 1 on 07/01/2021 by Gee Hagen MD at OR [facility] Right: Eye [employer] 02/25/2026 [id number] / [id number] / [id number] Lens Intraoc 19.5 - [id number] - [id number] Implanted:Qty: 1 on 07/15/2021 by Gee Hagen MD at OR [facility] Left: Eye [employer]CH [employer] LOMB 02/25/2026 [id number] / [id number] / documented as of this encounter Visit Diagnoses Diagnosis HTN, goal below 130/80- Primary Unspecified essential hypertension Essential hypertension with goal blood pressure less than 140/90 documented in this encounter Care Teams Predatory Animal Trapper Relationship Specialty Start Date End Date Phil Maldonado MD [address] [facility] [place] [address] PCP - General Internal Medicine 06/19/19 documented as of this encounter
--- OUTSIDE RECORDS SUMMARY | 2024-01-02 15:37 | External Medical Summary | Summary of Care ---
Author Name Unknown Organization [facility] Address [address] [place] [address] Phone [phone] Care Team Providers Care Sales Data Analyst Name Role Phone Phil Maldonado MD Primary Care Provider + Reason for Visit * Reason Comments Dosage Adjustment In Person (Anticoag Cl inic) Encounter Details Date Type Department Care Team (Latest Contact Info) Description 09/06/2023 1:00 PM EDT Anticoagulation Pharmacy, 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 90 mL 3 3 Active Additional Information Patient taking differently:2 [place] NasalBID PRN, Rhinitis, Indications: Allergic Rhinitis, Reported [...] 3 Active Additional Information Patient taking differently:2 [place] Each Nostril Daily(AM),Indications: Allergic Rhinitis, Reported on [...] inj 60 mgIndications:Senile osteoporosis 60 mg SC [id number] 03/04/2023 02/27/2024 Active documented as of this encounter (statuses as of 09/06/2023) Active Problems Problem Noted Date Diagnosed Date [...] as of this encounter (statuses as of 09/06/2023) Resolved Problems Problem Noted Date Diagnosed Date [...] as of this encounter (statuses as of 09/06/2023) Immunizations Name Administration Dates Next Due COVID-19 [...] money to get more. Never true 07/21/2022 Sex and Gender Information Value Date Recorded Sex Assigned at Female 06/19/2019 9:31 AM EDT Gender Identity Female 06/19/2019 9:31 AM EDT Sexual Orientation Straight 06/19/2019 9: 31 AM EDT Job Start Date Occupation Industry Not on file Not on file Not on file documented as of this encounter Progress Notes * Pancho Perez, [facility] - 09/06/2023 12:46 PM EDT Medication Therapy Disease Management - Anticoagulation Patient: Horacio Campos Gamal | : 1940 Subjective Patient-Reported Symptoms: Patient Findings Negatives: Signs/symptoms of thrombosis, Signs/symptoms of bleeding, Change in health, Change in alcohol use, Change in activity, Upcoming invasive procedure, Missed doses, Extra doses, Change in medications, Change in diet/appetite, Bruising Objective Current Warfarin Dose As of 09/06/2023 Warfarin maintenance plan: 1.25 mg (2.5 mg x 0.5) every Mon, Adrianna; 2.5 mg (2.5 mg x 1) all other days INR Result As of 09/06/2023 INR goal: 2.0-3.0 INR used for dosin.9 (09/06/2023) Assessment & Plan Warfarin Plan As of 09/06/2023 Full warfarin instructions: 1.25 mg every Mon, Adrianna; 2.5 mg all other days No change documented: Pancho Perez jaymie Next INR check: 10/18/2023 Repeat PT/INR in 6 week(s) Weekly dose: not changed Additional Dosing Information: Pancho Perez [facility] Clinical Pharmacist 09/06/2023, 12:46 PM documented in this encounter Plan of Treatment Upcoming Encounters Date Type Department Care Team (Late st Contact Info) Description 09/13/2023 2:30 PM EDT Nurse Only Rheumatology [address] [place] [address] Pf, Nurse Rheum [address] [place] [address] [place] [address] 09/22/2023 10:00 AM EDT Imaging Radiology [facility] [address] [facility] [address] [facility] [place] [address] 09/22/2023 12:00 PM EDT Office Visit Pulmonary Medicine, [facility] 132 [facility] [place] [address] Stanley Chavez MD [address] [place] [address] 10/04/2023 11:00 AM EDT Imaging Radiology, [address] [place] [address] 10/04/2023 1:30 PM EDT Office Visit Allergy/Immunology [facility] [address] [place] [address] Felisa Garcia PA-C [address] [place] [address] 10/18/2023 1:10 PM EDT Anticoagulation Pharmacy, [facility] [place] [address] [place] [address] Pharmacist2, [facility] 200 [facility] [place] [address] 02/22/2024 11:15 AM EST Office Visit Dermatology [facility] 200 [facility] [place], [place] [address] Phil Perez MD 200 [place] [address] 03/09/2024 11:20 AM EST Office Visit General Internal Medicine [facility] 200 [facility] [place] [address] Phil Maldonado MD 200 [facility] [place] [address] 03/15/2024 10:20 AM EST Office Visit Rheumatology [place] [address] [place] [address] Tristan Richards MD [facility] [place] [address] 04/07/2024 11:30 AM EST Office Visit Nephrology, [facility] 200 [facility] [place] [address] ZeGena hoffman PA-C 200 [place] [address] Health Maintenance Due Date Last Done Comments COVID-19 Vaccine (2022- season) 2023 01/27/2023, 03/18/2022, 01/23/2021, Additional history exists Depression Screening 07/22/2023 07/21/2022 DTaP,Tdap,and Td Vaccines (2 - Td or Tdap) 09/08/2023 09/07/2013, 02/17/2010, 10/18/2001, Additional history exists DXA Scan 10/01/2023 09/30/2021, 07/0 07/2021, 09/25/2019, Additional history exists GFR 02/24/2024 08/24/2023, 0 10/2023, 02/04/2023, Additional history exists CKD HGB USE SMARTSET 76255 07/04/202407/04, 07/05/2023, 02/04/2023, Additional history exists CKD PHOS USE SMARTSET 97227 08/10/202407/27, 08/25/2022, 06/26/2021, Additional history exists TSH 08/10/2024 08/11/2023, 0 10/2023, 02/04/2023, Additional history exists Albumin/Creatinine Ratio 08/11/2024 024, 08/26/2022, 06/30/2021, Additional history exists Zoster Vaccines Discontinued 02/10/2007 Pneumococcal Vaccine: 65+ Years Completed 07/20/2014, 01/30/2008, 10/16/1994 Influenza Vaccine (FLU shot) Completed 01/05/2023, 01/16/2022, 12/27/2020, Additional history exists VITAMIN D LEVEL ONCE IN A LIFETIME-USE SMARTSET# 07418 Completed 08/24/2023, 04/01/2023, 11/13/2022, Additional history exists GARDASIL-HPV IMMUNIZATION SERIES Aged Out No longer eligible based on patient's age to complete this topic MENINGOCOCCAL (MENACTRA/MENVEO) Aged Out No longer eligible based on patient's age to complete this topic documented as of this encounter Medical Devices Implanted Type Area Buffing Machine Tender Device Identifier Shelf Expiration Date Model / Serial / Lot Lens Intraoc 22.0 - [id number] - [id number] Implanted:Qty: 1 on 07/01/2021 by Gee Hagen MD at OR [facility] Right: Eye [employer]OM[employer] 02/25/2026 [id number] / [id number] / [id number] Lens Intraoc 19.5 - [id number] - [id number] Implanted:Qty: 1 on 07/15/2021 by Gee Hagen MD at OR [facility] Left: Eye BAUSCH & LOMB 02/25/2026 [id number] / [id number] / documented as of this encounter Procedures Procedure Name Priority Date/Time Associated Diagnosis Comments INR FINGERSTICK, POINT OF CARE STAT 09/06/2023 12:50 PM EDT History of pulmonary embolism Anticoagulation management encounter documented in this encounter Results * INR FINGERSTICK, POINT OF CARE (09/06/2023 12:50 PM EDT) Fingerstick INR 2.9 INR 12:52 PM EDT [facility] 56-02 Blood 09/06/2023 12:5 0 PM EDT 09/06/2023 12:52 PM EDT Narrative [facility] 56-02 - 09/06/2023 12:52 PM EDT Therapeutic ranges for non-operative patients: Prophylaxsis/treatment of DVT: (Range:2.0-3.0) Treatment of pulmonary embolism:(Range:2.0-3.0) Prevention of systemic embolism from: -tissue heart valves -acute myocardial infarction -valvular heart disease -atrial fibrillation (Range: 2.0-3.0) Mechanical prosthetic valves: (Range: 2.5-3.5) Pancho Perez [facility] LAB POINT O F CARE TEST DOCKED DEVICE UNSOLICITED RESULTS [facility] 56-02 200 [facility] [place] [address] documented in this encounter Visit Diagnoses Diagnosis Anticoagulation management encounter- Primary Encounter for therapeutic drug monitoring History of pulmonary embolism Personal history of pulmonary embolism documented in this encounter Care Teams Sales Data Analyst Relationship Specialty Start Date End Date Phil Maldonado MD 200 [facility] [place] [address] PCP - General Internal Medicine 06/19/19 documented as of this encounter"
--- OUTSIDE RECORDS SUMMARY | 2024-01-02 15:37 | External Medical Summary | Summary of Care ---
Author Name Unknown Organization [facility] Address [address] [place] [address] Phone [phone] Care Team Providers Care Equipment Planner Name Role Phone Phil Maldonado MD Primary Care Provider + Reason for Visit * Reason Onset Date Comments Advice 09/13/2023 Flare Encounter Details Date Type Department Care Team (Late st Contact Info) Description 09/13/2023 Telephone Pulmonary Medicine, [facility] [address] [facility] [place] [address] Stanley Martin MD [address] 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 90 mL 3 3 Active Additional Information Patient taking differently:2 [place] NasalBID PRN, Rhinitis, Indications: Allergic Rhinitis, Reported [...] 3 Active Additional Information Patient taking differently:2 [place] Each Nostril Daily(AM),Indications: Allergic Rhinitis, Reported on [...] inj 60 mgIndications:Senile osteoporosis 60 mg SC [id number] 03/04/2023 02/27/2024 Active Denosumab (Prolia) subcut inj 60 mgIndications:Senile osteoporosis 60 mg SC ONCE 09/13/2023 09/14/2023 Active documented as of this encounter (statuses as of 09/13/2023) Active Problems Problem Noted Date Diagnosed Date [...] as of this encounter (statuses as of 09/13/2023) Resolved Problems Problem Noted Date Diagnosed Date [...] as of this encounter (statuses as of 09/13/2023) Immunizations Name Administration Dates Next Due COVID-19 [...] encounter Miscellaneous Notes * Telephone Encounter - Keara Hassan LPN - 09/13/2023 1:36 PM EDT Pt aware * Addendum Note - Stanley Martin MD - 09/13/2023 10:59 AM EDTAddended by: STANLEY MARTIN on: 09/13/2023 10:59 AM Modules accepted: Orders * Telephone Encounter - Stanley Martin MD - 09/13/2023 10:58 AM EDT Prescription for Augmentin antibiotic therapy for 14 days and Medrol Dosepak has been sent to [facility]. * Telephone Encounter - Keara Hassan LPN - 09/13/2023 8:51 AM EDT Pt states she thinks she is having a bronchiectasis flare. States she has a productive cough. Phlegm goes between light to dark yellow. Denies any blood in her cough. Chest is tight. Has to cough until she loosens the phlegm in her chest but is almost vomiting. Pt is using her Flutter. Denies fever. Pt has had her sx's for the past 3 days. Pt is also having SOB. Trouble talking. Pulse Ox is 94% on RA. Pt states she is using her meds as directed without relief. Pt has an appt and chest CT on but not sure she can wait that long documented in this encounter Plan of Treatment Upcoming Encounters Date Type Department Care Team (Late st Contact Info) Description 09/13/2023 2:30 PM EDT Nurse Only Rheumatology [address] [place], [place] [address] Pf, Nurse Rheum [address] [place], [place] [address] 09/22/2023 10:00 AM EDT Imaging Radiology [facility] 1st [facility] 132 [facility] [place], [place] [address] 09/22/2023 12:00 PM EDT Office Visit Pulmonary Medicine, [facility] 132 [facility] [place] [address] Stanley Martin MD [address] [facility] [address] 10/04/2023 11:00 AM EDT Imaging Radiology, [facility] [address] [place] [address] 10/04/2023 1:30 PM EDT Office Visit Allergy/Immunology [facility] [address] [place] [address] Felisa Garcia PA-C 200 [facility] [place] [address] 10/18/2023 1:10 PM EDT Anticoagulation Pharmacy, [facility] [address] [place] [address] Pharmacist2, [facility] [place] [address] 02/22/2024 11:15 AM EST Office Visit Dermatology [facility] [address] [place] [address] Phil Perez MD 200 [facility] [place] [address] 03/09/2024 11:20 AM EST Office Visit General Internal Medicine [facility] [address] [place] [address] Phil Maldonado MD [address] [place] [address] 03/15/2024 10:20 AM EST Office Visit Rheumatology [facility] [place] [address] [place] [address] Tristan Richards MD [address] [employer] [place] [address] 04/07/2024 11:30 AM EST Office [facility], [facility] [place] 200 [facility] [place] [address] ZemaitisGena PA-C 200 [facility] [place] [address] Health Maintenance Due Date Last Done Comments COVID-19 Vaccine ( season) 2023 01/27/2023, 03/18/2022, 01/23/2021, Additional history exists Depression Screening 07/22/2023 07/21/2022 DTaP,Tdap,and Td Vaccines (2 - Td or Tdap) 09/08/2023 09/07/2013, 02/17/2010, 10/18/2001, Additional history exists DXA Scan 10/01/2023 09/30/2021, 0 07/2021, 09/25/2019, Additional history exists GFR 02/24/2024 08/24/2023, 0 10/2023, 02/04/2023, Additional history exists CKD HGB USE SMARTSET 07158 07/04/202407/04, 07/05/2023, 02/04/2023, Additional history exists CKD PHOS USE SMARTSET 39143 08/10/202407/27, 08/25/2022, 06/26/2021, Additional history exists TSH 08/10/2024 08/11/2023, 040 10/2023, 02/04/2023, Additional history exists Albumin/Creatinine Ratio 08/11/2024 024, 08/26/2022, 06/30/2021, Additional history exists Zoster Vaccines Discontinued 02/10/2007 Pneumococcal Vaccine: 65+ Years Completed 07/20/2014, 01/30/2008, 10/16/1994 Influenza Vaccine (FLU shot) Completed 01/05/2023, 01/16/2022, 12/27/2020, Additional history exists VITAMIN D LEVEL ONCE IN A LIFETIME-USE SMARTSET# 51331 Completed 08/24/2023, 04/01/2023, 11/13/2022, Additional history exists GARDASIL-HPV IMMUNIZATION SERIES Aged Out No longer eligible based on patient's age to complete this topic MENINGOCOCCAL (MENACTRA/MENVEO) Aged Out No longer eligible based on patient's age to complete this topic documented as of this encounter Medical Devices Implanted Type Area Polymerization Oven Tender Device Identifier Shelf Expiration Date Model / Serial / Lot Lens Intraoc 22.0 - [id number] - [id number] Implanted:Qty: 1 on 07/01/2021 by Gee Hagen MD at OR [facility] Right: Eye [employer]CH [employer] LOMB 02/25/2026 [id number] / [id number] / [id number] Lens Intraoc 19.5 - [id number] - [id number] Implanted:Qty: 1 on 07/15/2021 by Gee Hagen MD at OR [facility] Left: Eye BAUSCH & LOMB 02/25/2026 [id number] / [id number] / documented as of this encounter Care Teams Equipment Planner Relationship Specialty Start Date End Date Phil Maldonado MD [address] [place] [address] PCP - General Internal Medicine 06/19/19 documented as of this encounter
--- OUTSIDE RECORDS SUMMARY | 2024-01-02 15:37 | External Medical Summary | Summary of Care ---
Author Name Unknown Organization [facility] Address [address] [place] [address] Phone [phone] Care Team Providers Care City Planning Engineer Name Role Phone Phil Maldonado MD Primary Care Provider + Encounter Details Date Type Department Care Team (Late st Contact Info) Description 09/20/2023 Population Health External Data Unspecified Department Allergies Active Allergy Reactions Criticality Noted Date Comments Azithromycin Anaphylaxis High 08/11/2023 Sulfa Antibiotics Hives 10/29/1998 documented as of this encounter (statuses as of 09/21/2023) Medications Medication Sig Dispensed Refills Start Date [...] 30-600 MG Oral Tablet Extended 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 90 mL 3 3 Active Additional Information Patient taking differently:2 [place] NasalBID PRN, Rhinitis, Indications: Allergic Rhinitis, Reported [...] 3 Active Additional Information Patient taking differently:2 [place] Each Nostril Daily(AM),Indications: Allergic Rhinitis, Reported on [...] inj 60 mgIndications:Senile osteoporosis 60 mg SC [id number] 03/04/2023 02/27/2024 Active documented as of this encounter (statuses as of 09/21/2023) Active Problems Problem Noted Date Diagnosed Date [...] as of this encounter (statuses as of 09/21/2023) Resolved Problems Problem Noted Date Diagnosed Date [...] as of this encounter (statuses as of 09/21/2023) Immunizations Name Administration Dates Next Due COVID-19 [...] Description 09/22/2023 10:00 AM EDT Imaging Radiology [address] [place] [address] 09/22/2023 12:00 PM EDT Office Visit Pulmonary Medicine, [facility] [address] [place] [address] Stanley hCavez MD [address] [place] [address] 10/04/2023 1:30 PM EDT Office Visit Allergy/Immunology [facility] 200 [facility] [place] [address] Felisa Garcia PA-C [address] [facility] [address] [place] [address] 10/05/2023 11:00 AM EDT Imaging Radiology, [facility] 2520 [facility] [place] [address] 10/06/2023 2:30 PM EDT Nurse Only Rheumatology [facility] [address] [facility] [place] [address] Pf, Nurse Rheum [facility] [place] [address] 10/18/2023 1:10 PM EDT Anticoagulation Pharmacy, [facility] [address] [place] [address] Pharmacist2, [facility] [address] [place], [place] [address] 02/22/2024 11:15 AM EST Office Visit Dermatology [facility] [address] [place] [address] Phil Perez MD 200 [facility] [address] [place], [place] [address] 03/09/2024 11:20 AM EST Office Visit General Internal Medicine [facility] [address] [place], [place] [address] Phil Maldonado MD 200 [facility] [place] [address] 04/07/2024 11:30 AM EST Office Visit Nephrology, [place] 200 [facility] [place], [place] [address] Gena Walton PA-C 200 [facility] [place] [address] 04/11/2024 1:00 PM EST Office Visit Rheumatology [facility] [address] [email or web address] [place] [address] Tristan Richards MD [address] [employer] [place] [address] Health Maintenance Due Date Last Done Comments COVID-19 Vaccine ( season) 2023 01/27/2023, 03/18/2022, 01/23/2021, Additional history exists Depression Screening 07/22/2023 07/21/2022 DTaP,Tdap,and Td Vaccines (2 - Td or Tdap) 09/08/2023 09/07/2013, 02/17/2010, 10/18/2001, Additional history exists DXA Scan 10/01/2023 09/30/2021, 0 07/2021, 09/25/2019, Additional history exists GFR 02/24/2024 08/24/2023, 040 10/2023, 02/04/2023, Additional history exists CKD HGB USE SMARTSET 31605 07/04/202407/04, 07/05/2023, 02/04/2023, Additional history exists CKD PHOS USE SMARTSET 61986 08/10/202407/27, 08/25/2022, 06/26/2021, Additional history exists TSH 08/10/2024 08/11/2023, 040 10/2023, 02/04/2023, Additional history exists Albumin/Creatinine Ratio 08/11/2024 024, 08/26/2022, 06/30/2021, Additional history exists Zoster Vaccines Discontinued 02/10/2007 Pneumococcal Vaccine: 65+ Years Completed 07/20/2014, 01/30/2008, 10/16/1994 Influenza Vaccine (FLU shot) Completed 01/05/2023, 01/16/2022, 12/27/2020, Additional history exists VITAMIN D LEVEL ONCE IN A LIFETIME-USE SMARTSET# 43891 Completed 08/24/2023, 04/01/2023, 11/13/2022, Additional history exists GARDASIL-HPV IMMUNIZATION SERIES Aged Out No longer eligible based on patient's age to complete this topic MENINGOCOCCAL (MENACTRA/MENVEO) Aged Out No longer eligible based on patient's age to complete this topic documented as of this encounter Medical Devices Implanted Type Area Raise Driller Device Identifier Shelf Expiration Date Model / Serial / Lot Lens Intraoc 22.0 - [id number] - [id number] Implanted:Qty: 1 on 07/01/2021 by Gee Hagen MD at OR [facility] Right: Eye BAUSCH [employer] LOMB 02/25/2026 [id number] / [id number] / [id number] Lens Intraoc 19.5 - [id number] - [id number] Implanted:Qty: 1 on 07/15/2021 by Gee Hagen MD at OR [facility] Left: Eye BAUSCH & LOMB 02/25/2026 [id number] / [id number] / documented as of this encounter Care Teams City Planning Engineer Relationship Specialty Start Date End Date Phil Maldonado MD 200 [facility] [place] [address] PCP - General Internal Medicine 06/19/19 documented as of this encounter
--- OUTSIDE RECORDS SUMMARY | 2024-01-02 15:37 | External Medical Summary | Summary of Care ---
Author Name Unknown Organization [facility] Address [address] [place] [address] Phone [phone] Care Team Providers Care Licensed Optician Name Role Phone Phil Maldonado MD Primary Care Provider + Reason for Visit * Reason Onset Date Comments Advice 06/17/2023 Encounter Details Date Type Department Care Team (Late st Contact Info) Description 06/17/2023 Telephone General Internal Medicine [facility] [address] [place] [address] Phil Maldonado MD [address] [place] [address] Advice Allergies Active Allergy Reactions Criticality Noted Date Comments Azithromycin Anaphylaxis High 08/11/2023 Sulfa Antibiotics Hives 10/29/1998 documented as of this encounter (statuses as of 09/16/2023) Medications Medication Sig Dispensed Refills Start Date [...] Additional Information Patient taking differently:75 mcg Oral [id number], AT LEAST 30 MINUTES PRIOR TO BREAKFAST OR OTHER MEDS,Indications: Hypothyroidism, Reported on 05/26/2023 Azelastine HCl 0.1 % Nasal Solution (Astelin) Administer 2 Sprays into nostril in the morning and 2 Sprays before bedtime. 90 mL 3 01/15/20 Active Additional Information Patient taking differently:2 Reynolds NasalBID PRN, Rhinitis, Indications: Allergic Rhinitis, Reported [...] 02/10/20 Active Additional Information Patient taking differently:2 Reynolds Each Nostril Daily(AM),Indications: Allergic Rhinitis, Reported on [...] IN THE MORNING,Indications: Hypertension, Reported on 05/26/2023 Breo Ellipta 200-25 MCG/ACT Inhalation Aerosol Powder Breath Activated (fluticasone furoate-vilanterol ) Inhale 1 Puff by mouth in the morning. 60 Blister Dosing Unit 5 11/12/19 23 024 Discontinued(Me dication/Dose Changed) Lisinopril-hydroCH LOROthiazide 20-12.5 MG Oral TabletIndications: HTN, goal below 130/80,CKD (chronic kidney disease) stage 3, GFR 30-59 ml/min ([facility]) Take 2 Tablets by mouth in the morning. 180 Tablet 3 12/17/19 23 024 Discontinued(Re fill) PARoxetine HCl 30 MG Oral [...] Tablet 3 03/19/20 23 024 Discontinued(Re fill) LORazepam 1 MG Oral Tablet (Ativan)Indication s:ETTA (generalized anxiety disorder) Take 1 Tablet (1 mg) by mouth 3 times a day as needed for Anxiety. 30 Tablet 04/08/19 24 024 Discontinued predniSONE 20 MG Oral Tablet (Deltasone)Indicat ions:Moderate persistent asthma with exacerbation Two tablets for 3 days, 1 tablet for 4 days 10 Tablet 06/02/19 24 024 Discontinued hydroCHLOROthiazid e 12.5 MG Oral TabletIndications: Essential hypertension with goal blood pressure less than 140/90 TAKE 2 TABLETS BY MOUTH AT BEDTIME 180 Tablet 3 06/15/19 24 024 Discontinued(Re fill) predniSONE 20 MG Oral Tablet (Deltasone)Indicat ions:Moderate persistent asthma with exacerbation Take 3 tablets by mouth for 3 days, 2 tabs for 3 days, 1 tab for 3 days, 1/2 tab for 3 days 20 Tablet 06/17/19 24 024 Discontinued Hospital, Clinic, or Other Facility Administered Medication Ordered Dose Route Frequency Start Date End Date Status Denosumab (Prolia) subcut inj 60 mgIndications:Senile osteoporosis 60 mg SC [id number] 03/04/2023 02/27/2024 Active documented as of this encounter (statuses as of 09/16/2023) Active Problems Problem Noted Date Diagnosed Date [...] as of this encounter (statuses as of 09/16/2023) Resolved Problems Problem Noted Date Diagnosed Date [...] as of this encounter (statuses as of 09/16/2023) Immunizations Name Administration Dates Next Due COVID-19 [...] encounter Miscellaneous Notes * Telephone Encounter - Mechelle Calvin LPN - 06/17/2023 8:53 AM EDT Pt calling with c/o of cough for weeks last night she was coughing up yellow mucus. Pt has asthma and is using her inhalers for wheezing. Scheduled appt at with Anjana Thibodeaux today at 11:20 documented in this encounter Plan of Treatment Upcoming Encounters Date Type Department Care Team (Late st Contact Info) Description 09/22/2023 10:00 AM EDT Imaging Radiology [facility] 1st [facility] 132 [facility] [place] [address] 09/22/2023 12:00 PM EDT Office Visit Pulmonary Medicine, [facility] [address] [place] [address] Stanley Chavez MD [address] [facility] [place] [address] 10/04/2023 1:30 PM EDT Office Visit [facility]ergy[facility] [place] [address] [place] [address] Felisa Garcia PA-C [address] [place] [address] 10/05/2023 11:00 AM EDT Imaging Radiology, [address] [place], [place] [address] 10/06/2023 2:30 PM EDT Nurse Only Rheumatology [address] [place], [place] [address] Pf, Nurse Rheum [facility] [place], [place] [address] 10/18/2023 1:10 PM EDT Anticoagulation Pharmacy, [facility] [address] [place], [place] [address] Pharmacist2, [facility] [address] [place], [place] [address] 02/22/2024 11:15 AM EST Office Visit Dermatology [facility] [address] [place], [place] [address] Phil Perez MD 200 [facility] [place], [place] [address] 03/09/2024 11:20 AM EST Office Visit General Internal Medicine [facility] [address] [place], [place] [address] Phil Maldonado MD 200 [facility] [place] [address] 04/07/2024 11:30 AM EST Office Visit Nephrology, [facility] [address] [place], [place] [address] Gena Walton PA-C 200 [facility] [place] [address] 04/11/2024 1:00 PM EST Office Visit Rheumatology [address] [place], [place] [address] Tristan Richards MD [address] [place] [address] [place], [place] [address] Health Maintenance Due Date Last Done Comments COVID-19 Vaccine ( season) 2023 01/27/2023, 03/18/2022, 01/23/2021, Additional history exists Depression Screening 07/22/2023 07/21/2022 DTaP,Tdap,and Td Vaccines (2 - Td or Tdap) 09/08/2023 09/07/2013, 02/17/2010, 10/18/2001, Additional history exists DXA Scan 10/01/2023 09/30/2021, 07/0 07/2021, 09/25/2019, Additional history exists GFR 02/24/2024 08/24/2023, 04/0 10/2023, 02/04/2023, Additional history exists CKD HGB USE SMARTSET 12995 07/04/202407/04, 07/05/2023, 02/04/2023, Additional history exists CKD PHOS USE SMARTSET 01054 08/10/[address] 07/2023, 08/25/2022, 06/26/2021, Additional history exists TSH 08/10/2024 08/11/2023, 04/0 10/2023, 02/04/2023, Additional history exists Albumin/Creatinine Ratio 08/11/2024 024, 08/26/2022, 06/30/2021, Additional history exists Zoster Vaccines Discontinued 02/10/2007 Pneumococcal Vaccine: 65+ Years Completed 07/20/2014, 01/30/2008, 10/16/1994 Influenza Vaccine (FLU shot) Completed 01/05/2023, 01/16/2022, 12/27/2020, Additional history exists VITAMIN D LEVEL ONCE IN A LIFETIME-USE SMARTSET# 99057 Completed 08/24/2023, 04/01/2023, 11/13/2022, Additional history exists GARDASIL-HPV IMMUNIZATION SERIES Aged Out No longer eligible based on patient's age to complete this topic MENINGOCOCCAL (MENACTRA/MENVEO) Aged Out No longer eligible based on patient's age to complete this topic documented as of this encounter Medical Devices Implanted Type Area Corporate Security Officer Device Identifier Shelf Expiration Date Model / Serial / Lot Lens Intraoc 22.0 - [id number] - [id number] Implanted:Qty: 1 on 07/01/2021 by Gee Hagen MD at OR [facility] Right: Eye [employer]CH [employer]OMB 02/25/2026 [id number] / [id number] / [id number] Lens Intraoc 19.5 - [id number] - [id number] Implanted:Qty: 1 on 07/15/2021 by Gee Hagen MD at OR [facility] Left: Eye BAUSCH & LOMB 02/25/2026 [id number] / [id number] / documented as of this encounter Care Teams Licensed Optician Relationship Specialty Start Date End Date Phil Maldonado MD [address] [place] [address], [place] [address] PCP - General Internal Medicine 06/19/19 documented as of this encounter
--- OUTSIDE RECORDS SUMMARY | 2024-01-02 15:37 | External Medical Summary | Summary of Care ---
Author Name Unknown Organization [facility] Address [address] [place] [address] Phone [phone] Care Team Providers Care Licensed Club Manager Name Role Phone Phil Maldonado MD Primary Care Provider + Reason for Visit * Reason Onset Date Comments Order Request 09/08/2023 Prolia Encounter Details Date Type Department Care Team (Late st Contact Info) Description 09/08/2023 Telephone Rheumatology [facility] [address] [place] [address] Trsitan Richards MD [address] [address] Order Request (Prolia ) Allergies Active Allergy Reactions Criticality Noted Date Comments Azithromycin Anaphylaxis High 08/11/2023 Sulfa Antibiotics Hives 10/29/1998 documented as of this encounter (statuses as of 09/08/2023) Medications Medication Sig Dispensed Refills Start Date [...] 30-600 MG Oral Tablet Extended Release 12 HourIndications:Epic Kaleidoscope Analyst giuliana Cough Take 1 Tablet by [...] Additional Information Patient taking differently:75 mcg Oral [id number], AT LEAST 30 MINUTES PRIOR TO BREAKFAST OR OTHER MEDS,Indications: Hypothyroidism, Reported on 05/26/2023 Azelastine HCl 0.1 % Nasal Solution (Astelin) Administer 2 Sprays into nostril in the morning and 2 Sprays before bedtime. 90 mL 3 3 Active Additional Information Patient taking differently:2 [place] NasalBID PRN, Rhinitis, Indications: Allergic Rhinitis, Reported [...] 3 Active Additional Information Patient taking differently:2 [place] Each Nostril Daily(AM),Indications: Allergic Rhinitis, Reported on [...] inj 60 mgIndications:Senile osteoporosis 60 mg SC [id number] 03/04/2023 02/27/2024 Active Denosumab (Prolia) subcut inj 60 mgIndications:Senile osteoporosis 60 mg SC ONCE 09/13/2023 09/14/2023 Active documented as of this encounter (statuses as of 09/08/2023) Active Problems Problem Noted Date Diagnosed Date [...] as of this encounter (statuses as of 09/08/2023) Resolved Problems Problem Noted Date Diagnosed Date [...] as of this encounter (statuses as of 09/08/2023) Immunizations Name Administration Dates Next Due COVID-19 [...] Telephone Encounter - Tristan Richards MD - 09/08/2023 12:56 PM EDT signed * Telephone Encounter - Connie Kinsey LPN - 09/08/2023 11:31 AM EDT Chart reviewed and labs noted [...] 09/13/2023 2:30 PM EDT Nurse Only Rheumatology [place] [address] [place] [place] [address] Pf, Nurse Rheum [facility] [place] [address] [address] 09/22/2023 10:00 AM EDT Imaging [facility] [address] [facility] [place] [address] 09/22/2023 12:00 PM EDT Office Visit Pulmonary Medicine, [facility] [address] [facility] [place] [address] Stanley Chavez MD [address] [place] [address] 10/04/2023 11:00 AM EDT Imaging Radiology, [place] [address] [place] [address] [address] 10/04/2023 1:30 PM EDT Office Visit Allergy/Immunology [facility] [place] [address] [place] [address] Felisa Garcia PA-C [address] [place] [address] 10/18/2023 1:10 PM EDT Anticoagulation Pharmacy, [facility] [place] [address] [place] [address] Pharmacist2, [facility] [address] [place] [address] 02/22/2024 11:15 AM EST Office Visit Dermatology [facility] [place] [address] [place] [address] Phil Perez MD [address] [place] [address] 03/09/2024 11:20 AM EST Office Visit General Internal Medicine [facility] 200 [facility] [place] [address] Phil Maldonado MD 200 [place] [address] 03/15/2024 10:20 AM EST Office Visit Rheumatology [address] [place] [address] Tristan Richards MD [address] [place] [address] 04/07/2024 11:30 AM EST Office Visit Nephrology, [facility] 200 [facility] [place] [address] Gena Walton PA-C 200 [facility] [place] [address] Health Maintenance Due Date Last Done Comments COVID-19 Vaccine ( season) 2023 01/27/2023, 03/18/2022, 01/23/2021, Additional history exists Depression Screening 07/22/2023 07/21/2022 DTaP,Tdap,and Td Vaccines (2 - Td or Tdap) 09/08/2023 09/07/2013, 02/17/2010, 10/18/2001, Additional history exists DXA Scan 10/01/2023 09/30/2021, 07/0 07/2021, 09/25/2019, Additional history exists GFR 02/24/2024 08/24/2023, 04/0 10/2023, 02/04/2023, Additional history exists CKD HGB USE SMARTSET 55233 07/04/202407/04, 07/05/2023, 02/04/2023, Additional history exists CKD PHOS USE SMARTSET 50307 08/10/2024 051 07/2023, 08/25/2022, 06/26/2021, Additional history exists TSH 08/10/2024 08/11/2023, 04/0 10/2023, 02/04/2023, Additional history exists Albumin/Creatinine Ratio 08/11/2024 024, 08/26/2022, 06/30/2021, Additional history exists Zoster Vaccines Discontinued 02/10/2007 Pneumococcal Vaccine: 65+ Years Completed 07/20/2014, 01/30/2008, 10/16/1994 Influenza Vaccine (FLU shot) Completed 01/05/2023, 01/16/2022, 12/27/2020, Additional history exists VITAMIN D LEVEL ONCE IN A LIFETIME-USE SMARTSET# [id number] Completed 08/24/2023, 04/01/2023, 11/13/2022, Additional history exists GARDASIL-HPV IMMUNIZATION SERIES Aged Out No longer eligible based on patient's age to complete this topic MENINGOCOCCAL (MENACTRA/MENVEO) Aged Out No longer eligible based on patient's age to complete this topic documented as of this encounter Medical Devices Implanted Type Area Drink Waiter Device Identifier Shelf Expiration Date Model / Serial / Lot Lens Intraoc 22.0 - [id number] - [id number] Implanted:Qty: 1 on 07/01/2021 by Gee Hagen MD at OR [facility] Right: Eye [employer]OM[employer] 02/25/2026 [id number] / [id number] / [id number] Lens Intraoc 19.5 - [id number] - [id number] Implanted:Qty: 1 on 07/15/2021 by Gee Hagen MD at OR [facility] Left: Eye BAUSCH [employer] LOMB 02/25/2026 [id number] / [id number] / documented as of this encounter Visit Diagnoses Diagnosis Senile osteoporosis- Primary Age-related osteoporosis without current pathological fracture Senile osteoporosis documented in this encounter Care Teams Licensed Club Manager Relationship Specialty Start Date End Date Phil Maldonado MD 200 [facility] [place] [address] PCP - General Internal Medicine 06/19/19 documented as of this encounter
--- OUTSIDE RECORDS SUMMARY | 2024-01-02 15:37 | External Medical Summary | Summary of Care ---
Author Name Unknown Organization [facility] Address [address] [place] [address] Phone [phone] Care Team Providers Care Supervisor Concrete Stone Finishing Name Role Phone Phil Maldonado MD Primary Care Provider + Reason for Visit * Reason Comments Medication Administration Medication not given - Prolia * Precert (Within 10 days (routine)) - Authorized Specialty Diagnoses / Procedures Referred By Contac t Referred To Contact Rheumatology Diagnoses Age-related osteoporosis without current pathological fracture Procedures DENOSUMAB 1MG[place] [address] [place] [address] Referral ID Status Reason Start Date Expiration Date V isits Requested Visits Authorized [id number] Authorized Precert 12/13/2019 03/28/2099 99 99 Encounter Details Date Type Department Care Team (Late st Contact Info) Description 09/13/2023 2:30 PM EDT Nurse Only Rheumatology [facility] [address] [facility] [place] [address] Pf, Nurse Rheum [address] [facility] [place] [address] Medication Administration (Medication not ... 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 90 mL 3 3 Active Additional Information Patient taking differently:2 [place] NasalBID PRN, Rhinitis, Indications: Allergic Rhinitis, Reported [...] 3 Active Additional Information Patient taking differently:2 [place] Each Nostril Daily(AM),Indications: Allergic Rhinitis, Reported on [...] inj 60 mgIndications:Senile osteoporosis 60 mg SC [id number] 03/04/2023 02/27/2024 Active Denosumab (Prolia) subcut inj [...] on file documented as of this encounter Nursing Notes * Yanelis Kinsey LPN - 09/13/2023 2:43 PM EDT Chief Complaint Patient presents with Medication Administration Medication not given - Fredrick Pt was diagnosed with bronchitis flare today and was given Augmentin to start today. Pt will come back for a nurse visit for fredrick after 14 day antibiotic is complete and she is symptom free. documented in this encounter Plan of Treatment Upcoming Encounters Date Type Department Care Team (Late st Contact Info) Description 09/22/2023 10:00 AM EDT Imaging Radiology [facility] 1st [facility] [address] [facility] [place] [address] 09/22/2023 12:00 PM EDT Office Visit Pulmonary Medicine, [facility] [address] [facility] [place] [address] Stanley Chavez MD [address] [facility] [place] [address] 10/04/2023 11:00 AM EDT [address] Radiology, [address] [place] [address] 10/04/2023 1:30 PM EDT Office Visit Allergy/Immunology [facility] 200 [facility] [place] [address] Felisa Garcia PA-C [address] [place] [address] 10/06/2023 2:30 PM EDT Nurse Only Rheumatology [place] [address] [place] [address] Pf, Nurse Rheum [facility] [address] [place] [address] 10/18/2023 1:10 PM EDT Anticoagulation Pharmacy, [facility] 200 [facility] [place] [address] Pharmacist2, [facility] [address] [facility] [place], [place] [address] 02/22/2024 11:15 AM EST Office Visit Dermatology [facility] [address] [facility] [place] [address] Phil Perez MD [address] [facility] [place] [address] 03/09/2024 11:20 AM EST Office Visit General Internal Medicine [facility] [address] [facility] [place] [address] Phil Maldonado MD [address] [facility] [place] [address] 04/07/2024 11:30 AM EST Office Visit Nephrology, [facility] [address] [facility] [place] [address] ZeGena hoffman PAMari [address] [facility] [place] [address] 04/11/2024 1:00 PM EST Office Visit Rheumatology [place] [address] [address] [place], [place] [address] Tristan Richards MD [facility] [place] [address] Health Maintenance Due Date Last Done Comments COVID-19 Vaccine ( season) 2023 01/27/2023, 03/18/2022, 01/23/2021, Additional history exists Depression Screening 07/22/2023 07/21/2022 DTaP,Tdap,and Td Vaccines (2 - Td or Tdap) 09/08/2023 09/07/2013, 02/17/2010, 10/18/2001, Additional history exists DXA Scan 10/01/2023 09/30/2021, 07/0 07/2021, 09/25/2019, Additional history exists GFR 02/24/2024 08/24/2023, 0 10/2023, 02/04/2023, Additional history exists CKD HGB USE SMARTSET 91291 07/04/202407/04, 07/05/2023, 02/04/2023, Additional history exists CKD PHOS USE SMARTSET 42725 08/10/202407/27, 08/25/2022, 06/26/2021, Additional history exists TSH 08/10/2024 08/11/2023, 0 10/2023, 02/04/2023, Additional history exists Albumin/Creatinine Ratio 08/11/2024 024, 08/26/2022, 06/30/2021, Additional history exists Zoster Vaccines Discontinued 02/10/2007 Pneumococcal Vaccine: 65+ Years Completed 07/20/2014, 01/30/2008, 10/16/1994 Influenza Vaccine (FLU shot) Completed 01/05/2023, 01/16/2022, 12/27/2020, Additional history exists VITAMIN D LEVEL ONCE IN A LIFETIME-USE SMARTSET# [id number] Completed 08/24/2023, 04/01/2023, 11/13/2022, Additional history exists GARDASIL-HPV IMMUNIZATION SERIES Aged Out No longer eligible based on patient's age to complete this topic MENINGOCOCCAL (MENACTRA/MENVEO) Aged Out No longer eligible based on patient's age to complete this topic documented as of this encounter Medical Devices Implanted Type Area Social Media Strategist Device Identifier Shelf Expiration Date Model / Serial / Lot Lens Intraoc 22.0 - [id number] - [id number] Implanted:Qty: 1 on 07/01/2021 by Gee Hagen MD at OR [facility] Right: Eye [employer]OM[employer] 02/25/2026 [id number] / [id number] / [id number] Lens Intraoc 19.5 - [id number] - [id number] Implanted:Qty: 1 on 07/15/2021 by Gee Hagen MD at OR [facility] Left: Eye BAUSCH [employer] LOMB 02/25/2026 [id number] / [id number] / documented as of this encounter Care Teams Supervisor Concrete Stone Finishing Relationship Specialty Start Date End Date Phil Maldonado MD 200 [place] [address] PCP - General Internal Medicine 06/19/19 documented as of this encounter
--- OUTSIDE RECORDS SUMMARY | 2024-01-02 15:37 | External Medical Summary | Summary of Care ---
Author Name Unknown Organization [facility] Address [address] [place] [address] Phone [phone] Care Team Providers Care Leather Softener Name Role Phone Phil Maldonado MD Primary Care Provider + Reason for Visit * Reason Onset Date Comments Advice 09/13/2023 Flare Encounter Details Date Type Department Care Team (Late st Contact Info) Description 09/13/2023 Telephone Pulmonary Medicine, [facility] [address] [place] [address] Stanley Martin MD [address] [facility] [place] [address] Advice (Flare) Allergies Active Allergy Reactions [...] 30-600 MG Oral Tablet Extended Release 12 HourIndications: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 90 mL 3 3 Active Additional Information Patient taking differently:2 [place] NasalBID PRN, Rhinitis, Indications: Allergic Rhinitis, Reported [...] 3 Active Additional Information Patient taking differently:2 [place] Each Nostril Daily(AM),Indications: Allergic Rhinitis, Reported on [...] 05/26/2023 LORazepam 1 MG Oral Tablet (Ativan)Indications: TETA (generalized anxiety disorder) Take 1 Tablet (1 [...] inj 60 mgIndications:Senile osteoporosis 60 mg SC [id number] 03/04/2023 02/27/2024 Active Denosumab (Prolia) subcut inj [...] as of this encounter Miscellaneous Notes * Addendum Note - Stanley Martin MD - 09/13/2023 10:59 AM EDTAddended by: STANLEY MARTIN on: 09/13/2023 10:59 AM Modules accepted: Orders * Telephone Encounter - Stanley Martin MD - 09/13/2023 10:58 AM EDT Prescription for Augmentin antibiotic therapy for 14 days and Medrol Dosepak [facility]. * Telephone Encounter - Keara Hassan LPN [...] 09/13/2023 2:30 PM EDT Nurse Only Rheumatology [place] [address] [place] [address] Pf, Nurse Rheum [facility] [place] [address] 09/22/2023 10:00 AM EDT Imaging Radiology [address] [place] [address] 09/22/2023 12:00 PM EDT Office Visit Pulmonary Medicine, [facility] [address] [facility] [place] [address] Stanley Martin MD [address] [place] [address] 10/04/2023 11:00 AM EDT Imaging Radiology, [address] [place], [place] [address] 10/04/2023 1:30 PM EDT Office Visit Allergy/Immunology [facility] [address] [place] [address] Felisa Garcia PA-C 200 [facility] [place] [address] 10/18/2023 1:10 PM EDT Anticoagulation Pharmacy, [facility] [place] [address] [place] [address] Pharmacist2, [facility] [address] [place] [address] 02/22/2024 11:15 AM EST Office Visit Dermatology [facility] [address] [place], [place] [address] Phil Perez MD [address] [facility] [address] [place], [place] [address] 03/09/2024 11:20 AM EST Office Visit General Internal Medicine [facility] [address] [facility] [place], [place] [address] Phil Maldonado MD 200 [facility] [place] [address] 03/15/2024 10:20 AM EST Office Visit Rheumatology [address] [place], [place] [address] Tristan Richards MD [facility] [place] [address] 04/07/2024 11:30 AM EST Office Visit Nephrology, [place] 200 [facility] [place], [place] [address] ZemaGena aranda, ANIBAL [address] [facility] [place], [place] [address] Health Maintenance Due Date Last Done Comments COVID-19 Vaccine (2022- season) 2023 01/27/2023, 03/18/2022, 01/23/2021, Additional history exists Depression Screening 07/22/2023 07/21/2022 DTaP,Tdap,and Td Vaccines (2 - Td or Tdap) 09/08/2023 09/07/2013, 02/17/2010, 10/18/2001, Additional history exists DXA Scan 10/01/2023 09/30/2021, 07/0 07/2021, 09/25/2019, Additional history exists GFR 02/24/2024 08/24/2023, 04/0 10/2023, 02/04/2023, Additional history exists CKD HGB USE SMARTSET 57780 07/04/202407/04, 07/05/2023, 02/04/2023, Additional history exists CKD PHOS USE SMARTSET 20373 08/10/202407/27, 08/25/2022, 06/26/2021, Additional history exists TSH 08/10/2024 08/11/2023, 04/0 10/2023, 02/04/2023, Additional history exists Albumin/Creatinine Ratio 08/11/2024 024, 08/26/2022, 06/30/2021, Additional history exists Zoster Vaccines Discontinued 02/10/2007 Pneumococcal Vaccine: 65+ Years Completed 07/20/2014, 01/30/2008, 10/16/1994 Influenza Vaccine (FLU shot) Completed 01/05/2023, 01/16/2022, 12/27/2020, Additional history exists VITAMIN D LEVEL ONCE IN A LIFETIME-USE SMARTSET# 46187 Completed 08/24/2023, 04/01/2023, 11/13/2022, Additional history exists GARDASIL-HPV IMMUNIZATION SERIES Aged Out No longer eligible based on patient's age to complete this topic MENINGOCOCCAL (MENACTRA/MENVEO) Aged Out No longer eligible based on patient's age to complete this topic documented as of this encounter Medical Devices Implanted Type Area Glass Grinder Device Identifier Shelf Expiration Date Model / Serial / Lot Lens Intraoc 22.0 - [id number] - [id number] Implanted:Qty: 1 on 07/01/2021 by Gee Hagen MD at OR [facility] Right: Eye [employer]OMB 02/25/2026 [id number] / [id number] / [id number] Lens Intraoc 19.5 - [id number] - [id number] Implanted:Qty: 1 on 07/15/2021 by Gee Hagen MD at OR [facility] Left: Eye BAUSCH [employer] LOMB 02/25/2026 [id number] / [id number] / documented as of this encounter Care Teams Leather Softener Relationship Specialty Start Date End Date Phil Maldonado MD [address] [place] [address] PCP - General Internal Medicine 06/19/19 documented as of this encounter
--- OUTSIDE RECORDS SUMMARY | 2024-01-02 15:37 | External Medical Summary | Summary of Care ---
Author Name Unknown Organization [facility] Address [address] [place] [address] Phone [phone] Care Team Providers Care Supervisor Cigar Processing Name Role Phone Phil Maldonado MD Primary Care Provider + Reason for Visit * Reason Onset Date Comments Advice 09/13/2023 Flare Encounter Details Date Type Department Care Team (Late st Contact Info) Description 09/13/2023 Telephone Pulmonary Medicine, [facility] [address] [facility] [place] [address] Stanley Chavez [facility] [address] [facility] [address] Advice (Flare) Allergies Active Allergy Reactions [...] 30-600 MG Oral Tablet Extended Release 12 HourIndications: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 90 mL 3 3 Active Additional Information Patient taking differently:2 [place] NasalBID PRN, Rhinitis, Indications: Allergic Rhinitis, Reported [...] 3 Active Additional Information Patient taking differently:2 [place] Each Nostril Daily(AM),Indications: Allergic Rhinitis, Reported on [...] inj 60 mgIndications:Senile osteoporosis 60 mg SC [id number] 03/04/2023 02/27/2024 Active Denosumab (Prolia) subcut inj [...] 09/13/2023 2:30 PM EDT Nurse Only Rheumatology [facility] [address] [facility] [place] [address] Pf, Nurse Rheum [facility] [place] [address] 09/22/2023 10:00 AM EDT Imaging Radiology [facility] 1st [facility] [address] [facility] [place] [address] 09/22/2023 12:00 PM EDT Office Visit Pulmonary Medicine, [facility] [address] [facility] [place] [address] Stanley Chavez [facility] [address] [facility] [address] 10/04/2023 11:00 AM EDT Imaging Radiology, [address] [place] [address] 10/04/2023 1:30 PM EDT Office Visit Allergy/Immunology [facility] [address] [place] [address] Felisa Garcia PA-C [address] [place] [address] [address] 10/18/2023 1:10 PM EDT Anticoagulation Pharmacy, [facility] [place] [address] [place] [address] Pharmacist2, [facility] [address] [place] [address] 02/22/2024 11:15 AM EST Office Visit Dermatology [facility] [place] [address] [place] [address] Phil Perez MD 200 [facility] [place] [address] 03/09/2024 11:20 AM EST Office Visit General Internal Medicine [facility] [address] [facility] [place] [address] Phil Maldonado MD 200 [place] [address] 03/15/2024 10:20 AM EST Office Visit Rheumatology [place] [address] [facility] [address] Tristan Richards MD [facility] [employer] [place] [address] 04/07/2024 11:30 AM EST Office Visit Nephrology, [facility] 200 [place] [address] Gena Walton PA-C 200 [facility] [place] [address] Health Maintenance Due Date Last Done Comments COVID-19 Vaccine ( season) 2023 01/27/2023, 03/18/2022, 01/23/2021, Additional history exists Depression Screening 07/22/2023 07/21/2022 DTaP,Tdap,and Td Vaccines (2 - Td or Tdap) 09/08/2023 09/07/2013, 02/17/2010, 10/18/2001, Additional history exists DXA Scan 10/01/2023 09/30/2021, 070 07/2021, 09/25/2019, Additional history exists GFR 02/24/2024 08/24/2023, 040 10/2023, 02/04/2023, Additional history exists CKD HGB USE SMARTSET 55947 07/04/202407/04, 07/05/2023, 02/04/2023, Additional history exists CKD PHOS USE SMARTSET 01336 08/10/202407/27, 08/25/2022, 06/26/2021, Additional history exists TSH 08/10/2024 08/11/2023, 04/0 10/2023, 02/04/2023, Additional history exists Albumin/Creatinine Ratio 08/11/2024 024, 08/26/2022, 06/30/2021, Additional history exists Zoster Vaccines Discontinued 02/10/2007 Pneumococcal Vaccine: 65+ Years Completed 07/20/2014, 01/30/2008, 10/16/1994 Influenza Vaccine (FLU shot) Completed 01/05/2023, 01/16/2022, 12/27/2020, Additional history exists VITAMIN D LEVEL ONCE IN A LIFETIME-USE SMARTSET# 67587 Completed 08/24/2023, 04/01/2023, 11/13/2022, Additional history exists GARDASIL-HPV IMMUNIZATION SERIES Aged Out No longer eligible based on patient's age to complete this topic MENINGOCOCCAL (MENACTRA/MENVEO) Aged Out No longer eligible based on patient's age to complete this topic documented as of this encounter Medical Devices Implanted Type Area All Source Intelligence Device Identifier Shelf Expiration Date Model / Serial / Lot Lens Intraoc 22.0 - [id number] - [id number] Implanted:Qty: 1 on 07/01/2021 by Gee Hagen MD at [facility] Right: Eye [employer] 02/25/2026 [id number] / [id number] / [id number] Lens Intraoc 19.5 - [id number] - [id number] Implanted:Qty: 1 on 07/15/2021 by Gee Hagen MD at OR [facility] Left: Eye [employer] 02/25/2026 [id number] / [id number] / documented as of this encounter Care Teams Supervisor Cigar Processing Relationship Specialty Start Date End Date Phil Maldonado MD [address] [place] [address] PCP - General Internal Medicine 06/19/19 documented as of this encounter
--- OUTSIDE RECORDS SUMMARY | 2024-01-02 15:37 | External Medical Summary ---
Author Name Unknown Address Unknown Organization K09:[facility] [place] [id number] Laboratory Report Ordering Provider Test Date Status VIKY GILL 09/06/2023 12:50:30 Final Therapeutic ranges for non-o perative patients:
Prophylaxsis/treatment of DVT: (Range:2.0-3.0)
Treatment of pulmonary embolism:(Range:2.0-3.0)
Prevention of systemic embolism from:
-tissue heart valves
-acute myocardial infarction
-valvular heart disease
-atrial fibrillation
(Range: 2.0-3.0)
Mechanical prosthetic valves: (Range: 2.5-3.5) Observation Date Value Abnormality Reference (Units ) Status INR in Capillary blood by Coagulation assay 09/06/2023 12:50:30 2.9 (INR) Final Performing Location [facility] [id number]
--- OUTSIDE RECORDS SUMMARY | 2024-01-02 15:37 | External Medical Summary | Summary of Care ---
Author Name Unknown Organization [facility] Address [address] [place] [address] Phone [phone] Care Team Providers Care [employer]obile [employer] Information Clerk Name Role Phone Phil Maldonado MD Primary Care Provider + Reason for Visit * Reason Comments Follow Up Here return. Asthma. Asthma Lung Nodule Cough Encounter Details Date Type Department Care Team (Late st Contact Info) Description 09/22/2023 12:00 PM EDT Office Visit Pulmonary Medicine, [facility] 132 [facility] [place] [address] Stanley Chavez MD [address] [facility] [place] [id number] Acute bronchiolitis, unspecified* Allergies Active Allergy Reactions Criticality Noted Date Comments Azithromycin Anaphylaxis High 08/11/2023 Sulfa Antibiotics Hives 10/29/1998 documented as of this encounter (statuses as of 09/22/2023) Medications Medication Sig Dispensed Refills Start Date [...] 30-600 MG Oral Tablet Extended Release 12 HourIndications:Braiding Machine Tender giuliana Cough Take 1 Tablet by mouth [...] Additional Information Patient taking differently:75 mcg Oral [id number], AT LEAST 30 MINUTES PRIOR TO BREAKFAST OR OTHER MEDS,Indications: Hypothyroidism, Reported on 05/26/2023 Azelastine HCl 0.1 % Nasal Solution (Astelin) Administer 2 Sprays into nostril in the morning and 2 Sprays before bedtime. 90 mL 3 3 Active Additional Information Patient taking differently:2 [place] NasalBID PRN, Rhinitis, Indications: Allergic Rhinitis, Reported [...] 3 Active Additional Information Patient taking differently:2 [place] Each Nostril Daily(AM),Indications: Allergic Rhinitis, Reported on [...] morning. 30 Tablet 3 4 01/20/20 Active Hospital, Clinic, or Other Facility Administered Medication Ordered Dose Route Frequency Start Date End Date Status Denosumab (Prolia) subcut inj 60 mgIndications:Senile osteoporosis 60 mg SC [id number] 03/04/2023 02/27/2024 Active documented as of this encounter (statuses as of 09/22/2023) Active Problems Problem Noted Date Diagnosed Date [...] as of this encounter (statuses as of 09/22/2023) Resolved Problems Problem Noted Date Diagnosed Date [...] as of this encounter (statuses as of 09/22/2023) Immunizations Name Administration Dates Next Due COVID-19 [...] Sign Reading Time Taken Comments Blood Pressure 128/60 09/22/2023 11:47 AM EDT Pulse - - Temperature 36 C (96.8 F) 09/22/2023 11:47 AM EDT Respiratory Rate 16 09/22/2023 11:47 AM EDT Oxygen Saturation 98% 09/22/2023 11:48 AM EDT ra-amb Inhaled Oxygen Concentration - - Weight 83.5 kg (184 lb) 09/22/2023 11:47 AM EDT Height 166.4 cm (5' 5.5") 09/22/2023 11:47 AM ED T Body Mass Index 30.15 09/22/2023 11:47 AM EDT documented in this encounter Progress Notes * Stanley Chavez MD - 09/22/2023 11:59 AM EDT 09/22/2023 Pulmonary Medicine, [address] [address] [id number] Horacio H Gamal 1940 female 83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 Patient describes episodes of recurrent bronchitis with productive mucoid phlegm. Cough episodes followed by emesis at times. Patient describes partial improvement in respiratory symptoms status while she was on antibiotic therapy along with prednisone taper. Over the last 6 months patient had multiple episodes where respiratory symptoms [...] maintenance steroid therapy was discussed. Patient is agreeableto a treatment trial of 3 months including low-dose maintenance prednisone therapy along with cyclic antibiotic therapy. Compliant with current bronchodilator regimen including Trelegy and Ventolin along with as needed use of albuterol nebulizer. Takes cetirizine for nasal congestion regularly. Also compliant with Coumadin for PE Physical [...] at 2.5 mg daily will be continued. Two month pulmonary clinic follow-up is recommended to [...] pneumothorax. IMPRESSION No acute cardiopulmonary disease. Assessment Recurrent bronchitis with history of improved symptoms status while on prednisone/antibiotic therapy: High risk for postinfectious cough/bronchiolitis related cough Augmentin twice daily for 10 days each month Low-dose prednisone at 2.5 mg daily as maintenance therapy Pulmonary clinic follow-up in 3 months Moderate persistent asthma with recent flare Continue with Trelegy and continue with rescue albuterol Spirometry remains normal. Pulmonary stress test did not indicate need for oxygen Patient's time relates worsening symptoms with air pollution. Avoidance of known symptom triggers recommended. Lung nodule Repeat CT chest January 2023 did not show any change in the status of lung nodules Unchanged left upper lobe scarring and elongated oval-shaped nodular focus that spans no more than about 11 mm. Scattered areas of bronchiectasis noted in lower lobes History of PE On Coumadin daily, managed by PCP Chronic rhinitis Continue Xyzal and Singulair Follow-up: Return in about 2 months (around 11/22/2023). | Check-out note: Recurrent Bronchitis and cough while off Abx and Prednisone Bronchiectasis Stable on 09/21 CT scan chest Recurrent post infectious cough Frequesnt traveller ([place], [place]) PE, on coumadin maintenance Reactive Airways Disease UACS GERD Pulm Nodules Plan: C/w trelegy Initiate Augment 875 BID x 10 day per month cycling course Maintain low dose prednisone at 2.5 mg daily C/w Rescue Albuterol C/w Omeprazole and Cetirizine C/w Coumadin for PE F/u 2 months Stanley Chavez MD Subjective CC: Chief Complaint Patient presents with Follow Up Here return. Asthma. Asthma Lung Nodule Cough HPI: Nursing Notes: Altagracia Green LPN 09/22/23 1153 Signed Chief Complaint Patient presents with Follow Up Here return. Asthma. Asthma Lung Nodule Cough Interm History/Respiratory Symptoms Cough: yes-varies in colors of yellow. Hemoptysis: no Sinus Symptoms: congestion and drainage. Hospitalizations: no ED Trips: no Triggers: environmental Cold Symptoms. Nocturnal: sleeps with head slightly elevated CPAP/BiPAP/O2: none DME Supplier: no Flu Vaccine: 2022 Pneumovax: 2008 Prevnar: 2015 COVID 19: x5 . MMRC Dyspnea Scale = 4 (I am too breathless to leave the house or I am breathless when dressing) . Myc Visit Accident Related Question Question 09/10/2023 7:35 PM EDT - Filed by Patient Is this visit related to an accident? (i.e work, motor vehicle) No Asthma Control Test Question 09/22/2023 11:32 AM EDT - Filed by Patient Please select the best response to the five questions below, by clicking the appropriate option button. In the past 4 weeks, how much of the time did your asthma keep you from getting as much done at work, school or at home? (3) Some of the time During the past 4 weeks, how often have you had shortness of breath? (2) Once a day During the past 4 weeks, how often did your asthma symptoms (wheezing, coughing, shortness of breath, chest tightness or pain) wake you up at night or earlier than usual in the morning? (1) 4 or morenights a week During the past 4 weeks, how often have you used your rescue inhaler or nebulizer medication (such as albuterol)? (2) 1 or 2 times per day How would you rate your asthma control during the past 4 weeks? (3) Somewhat controlled Total ACT Adult Score (range: 5 - 25) 11 (Poorly Controlled) Total ACT Child Score (range: 0 - 27) Incomplete Objective Filed Vitals: 09/22/23 1147 09/22/23 1148 BP: 128/60 Resp: 16 Temp: 36 C (96.8 F) TempSrc: Tympanic SpO2: 98% 98% Weight: 83.5 kg (184 lb) Height: 1.664 [...] is normal. Tests reviewed with the patient: XR CHEST 2 VIEWS Result Date: 07/05/2023 IMPRESSION No acute cardiopulmonary disease. XR CHEST 2 VIEWS Result Date: 06/17/2023 IMPRESSION No acute cardiopulmonary disease. Available Radiologic data was reviewed by me in PACS. The images were shown to the patient and findings were discussed with the patient. HOME MEDICATIONS: Amoxicillin-Pot Clavulanate 875-125 MG Oral Tablet (Augmentin) predniSONE 2.5 MG Oral Tablet (Deltasone) Amoxicillin-Pot Clavulanate 875-125 MG Oral Tablet (Augmentin) methylPREDNISolone 4 MG Oral Tablet Therapy Pack (Medrol Dosepack) Trelegy Ellipta 100-62.5-25 MCG/ACT Aerosol Powder Breath Activated (Lvxzhybsvgg-Hxebpbfdmdtc-Obeqjrnyry) Allopurinol 100 MG Oral Tablet (Zyloprim) Metoprolol Succinate ER 25 MG Oral Tablet Extended Release 24 Hour (toPROL XL) Montelukast Sodium 10 MG Oral Tablet (Singulair) PARoxetine HCl 30 MG Oral Tablet (Paxil) Lisinopril-hydroCHLOROthiazide 20-12.5 MG Oral Tablet LORazepam 1 MG Oral Tablet (Ativan) Spironolactone 25 MG Oral Tablet (Aldactone) Levocetirizine Dihydrochloride 5 MG Oral Tablet Omeprazole 40 MG Oral Capsule Delayed Release (PriLOSEC) Fluticasone Propionate 50 MCG/ACT Nasal Suspension (Flonase) Pravastatin Sodium 10 MG Oral Tablet (Pravachol) Azelastine HCl 0.1 % Nasal Solution (Astelin) Levothyroxine Sodium 75 MCG Oral Tablet (Levoxyl) Albuterol Sulfate HFA 108 (90 Base) MCG/ACT Inhalation Aerosol Solution Mucinex DM 30-600 MG Oral Tablet Extended Release 12 Hour Warfarin Sodium 2.5 MG Oral Tablet (Coumadin) Famotidine 20 MG Oral Tablet (Pepcid) Vitamin D3 25 MCG (1000 UT) Oral Capsule Albuterol Sulfate (2.5 MG/3ML) 0.083% Inhalation Nebulization Solution (Proventil) Polyethylene Glycol 3350 17 GM/SCOOP Oral Powder Dicyclomine HCl 10 MG Oral Capsule (Bentyl) Acetaminophen 500 MG Oral Tablet (Tylenol) Prolia 60 MG/ML Subcutaneous Solution Prefilled Syringe (denosumab) Spacer/Aero-Holding Chambers [place] COMPRESSOR/NEBULIZER MIS Denosumab (Prolia) subcut inj 60 mg ROS: [...] performed by Luis Mcdaniel MD at ENDOSCOPY [facility] EGD, FLEXIBLE, DIAGNOSTIC 07/11/2013 ESOPHAGOGASTRODUODENOSCOPY (EGD), FLEXIBLE, TRANSORAL, DIAGNOSTIC performed by Brandon Silva MD at ENDOSCOPY [facility] EGD, FLEXIBLE, DIAGNOSTIC 09/02/2022 sm hiatal hernia / ESOPHAGOGASTRODUODENOSCOPY (EGD), FLEXIBLE, TRANSORAL, DIAGNOSTIC performed by Rosy Alanis DO at ENDOSCOPY [facility] LIGATE/CUT OVIDUCT(S) 03/29/1983 Tubal Ligation NASAL ENDOSCOPY, DIAGNOSTIC 05/27/1993 Nasal Endoscopy,Dx NASAL ENDOSCOPY, DX W/SINUSOSCOPY Sinus Nasal/Maxill Endoscopy,Dx NASAL ENDOSCOPY, DX W/SINUSOSCOPY Sinus Nasal/Sphenoid Endoscopy,Dx REMOVE CATARACT, INSERT LENS PROSTH Right 07/01/2021 Right EXTRACAPSULAR CATARACT REMOVAL WITH INTRAOCULAR LENS performed by Gee Hagen MD at [facility] REMOVE CATARACT, INSERT LENS PROSTH Left 07/15/2021 Left EXTRACAPSULAR CATARACT REMOVAL WITH INTRAOCULAR LENS performed by Gee Hagen MD at [facility] REMOVE GALLBLADDER 03/29/2000 REMOVE TONSILS & [...] 7 yrs old Social Determinants of Health Food Insecurity: No [...] documented in this encounter Nursing Notes * Altagracia Green LPN - 09/22/2023 11:49 AM EDT Chief Complaint Patient presents with Follow Up Here return. Asthma. Asthma Lung Nodule Cough Interm History/Respiratory Symptoms Cough: yes-varies in colors of yellow. Hemoptysis: no Sinus Symptoms: congestion and drainage. Hospitalizations: no ED Trips: no Triggers: environmental Cold Symptoms. Nocturnal: sleeps with head slightly elevated CPAP/BiPAP/O2: none DME Supplier: no Flu Vaccine: 2022 Pneumovax: 2008 Prevnar: 2015 COVID 19: x5 . MMRC Dyspnea Scale = 4 (I am too breathless to leave the house or I am breathless when dressing) . Myc Visit Accident Related Question Question 09/10/2023 7:35 PM EDT - Filed by Patient Is this visit related to an accident? (i.e work, motor vehicle) No Asthma Control Test Question 09/22/2023 11:32 AM EDT - Filed by Patient Please select the best response to the five questions below, by clicking the appropriate option button. In the past 4 weeks, how much of the time did your asthma keep you from getting as much done at work, school or at home? (3) Some of the time During the past 4 weeks, how often have you had shortness of breath? (2) Once a day During the past 4 weeks, how often did your asthma symptoms (wheezing, coughing, shortness of breath, chest tightness or pain) wake you up at night or earlier than usual in the morning? (1) 4 or morenights a week During the past 4 weeks, how often have you used your rescue inhaler or nebulizer medication (such as albuterol)? (2) 1 or 2 times per day How would you rate your asthma control during the past 4 weeks? (3) Somewhat controlled Total ACT Adult Score (range: 5 - 25) 11 (Poorly Controlled) Total ACT Child Score (range: 0 - 27) Incomplete documented in this encounter Plan of Treatment Upcoming Encounters Date Type Department Care Team (Late st Contact Info) Description 10/04/2023 1:30 PM EDT Office Visit Allergy/Immunology [facility] [address] [place] [address] Felisa Garcia PA-C [address] [place] [address] 10/05/2023 11:00 AM EDT Imaging Radiology, [place] [address] [place] [address] [address] 10/06/2023 2:30 PM EDT Nurse Only Rheumatology [place] [address] [place] [address] Pf, [facility] [place] [address] 10/18/2023 1:10 PM EDT Anticoagulation Pharmacy, [facility] [place] [address] [place] [address] Pharmacist2, [facility] [address] [place] [address] 11/22/2023 12:00 PM EDT Office Visit Pulmonary Medicine, [facility] [address] [place] [address] Stanley Chavze MD [address] [place] [address] 02/22/2024 11:15 AM EST Office Visit Dermatology [facility] 200 [facility] [place] [address] Phil Perez MD 200 [facility] [place] [address] 03/09/2024 11:20 AM EST Office Visit General Internal Medicine [facility] [address] [facility] [place] [address] Phil Maldonado MD 200 [place] [address] 04/07/2024 11:30 AM EST Office Visit Nephrology, [facility] 200 [facility] [place], [place] [address] Gena Walton PA-C 200 [facility] [place] [address] 04/11/2024 1:00 PM EST Office Visit Rheumatology [address] [place], [place] [address] Tristan Richards MD [facility] [employer] [place], [place] [address] Health Maintenance Due Date Last Done Comments COVID-19 Vaccine (2022- season) 2023 01/27/2023, 03/18/2022, 01/23/2021, Additional history exists Depression Screening 07/22/2023 07/21/2022 DTaP,Tdap,and Td Vaccines (2 - Td or Tdap) 09/08/2023 09/07/2013, 02/17/2010, 10/18/2001, Additional history exists DXA Scan 10/01/2023 09/30/2021, 0 07/2021, 09/25/2019, Additional history exists GFR 02/24/2024 08/24/2023, 0 10/2023, 02/04/2023, Additional history exists CKD HGB USE SMARTSET 06684 07/04/202407/04, 07/05/2023, 02/04/2023, Additional history exists CKD PHOS USE SMARTSET 61991 08/10/20241 07/2023, 08/25/2022, 06/26/2021, Additional history exists TSH 08/10/2024 08/11/2023, 0 10/2023, 02/04/2023, Additional history exists Albumin/Creatinine Ratio 08/11/2024 024, 08/26/2022, 06/30/2021, Additional history exists Zoster Vaccines Discontinued 02/10/2007 Pneumococcal Vaccine: 65+ Years Completed 07/20/2014, 01/30/2008, 10/16/1994 Influenza Vaccine (FLU shot) Completed 01/05/2023, 01/16/2022, 12/27/2020, Additional history exists VITAMIN D LEVEL ONCE IN A LIFETIME-USE SMARTSET# 74675 Completed 08/24/2023, 04/01/2023, 11/13/2022, Additional history exists GARDASIL-HPV IMMUNIZATION SERIES Aged Out No longer eligible based on patient's age to complete this topic MENINGOCOCCAL (MENACTRA/MENVEO) Aged Out No longer eligible based on patient's age to complete this topic documented as of this encounter Medical Devices Implanted Type Area Library Services Assistant Device Identifier Shelf Expiration Date Model / Serial / Lot Lens Intraoc 22.0 - [id number] - [id number] Implanted:Qty: 1 on 07/01/2021 by Gee Hagen MD at [facility] Right: Eye [employer] 02/25/2026 [id number] / [id number] / [id number] Lens Intraoc 19.5 - [id number] - [id number] Implanted:Qty: 1 on 07/15/2021 by Gee Hagen MD at OR [facility] Left: Eye [employer] 02/25/2026 [id number] / [id number] / documented as of this encounter Visit Diagnoses Diagnosis Acute bronchiolitis, unspecified- Primary documented in this encounter Care Teams [employer]obile [employer] Information Clerk Relationship Specialty Start Date End Date Phil Maldonado MD [address] [place] [address] PCP - General Internal Medicine 06/19/19 documented as of this encounter
--- OUTSIDE RECORDS SUMMARY | 2024-01-02 15:38 | External Medical Summary | Summary of Care ---
Author Name Unknown Organization [facility] Address [address] [place] [address] Phone [phone] Care Team Providers Care Shooter Helper Name Role Phone Phil Maldonado MD Primary Care Provider + Reason for Visit * Reason Onset Date Comments Returning Call 08/27/2023 Encounter Details Date Type Department Care Team (Late st Contact Info) Description 08/27/2023 Telephone Pharmacy Call Center [phone] 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 90 mL 3 3 Active Additional Information Patient taking differently:2 [place] NasalBID PRN, Rhinitis, Indications: Allergic Rhinitis, Reported [...] 3 Active Additional Information Patient taking differently:2 [place] Each Nostril Daily(AM),Indications: Allergic Rhinitis, Reported on [...] AT BEDTIME 90 Tablet 1 4 Active Trelegy Ellipta 100-62.5-25 MCG/ACT Aerosol Powder Breath Activated (Fluticasone-Umeclid inium-Vilanterol) Inhale 1 Puff by mouth in the morning. 60 Blister Dosing Unit 4 Active Allopurinol 100 MG Oral Tablet (Zyloprim)Indication s:Gout Prophylaxis Take 2 Tablets by mouth in the morning. 4 Active Hospital, Clinic, or Other Facility Administered Medication Ordered Dose Route Frequency Start Date End Date Status Denosumab (Prolia) subcut inj 60 mgIndications:Senile osteoporosis 60 mg SC [id number] 03/04/2023 02/27/2024 Active documented as of this encounter (statuses as of 08/27/2023) Active Problems Problem Noted Date Diagnosed Date [...] as of this encounter (statuses as of 08/27/2023) Resolved Problems Problem Noted Date Diagnosed Date [...] as of this encounter (statuses as of 08/27/2023) Immunizations Name Administration Dates Next Due COVID-19 [...] encounter Miscellaneous Notes * Telephone Encounter - Enrique Ruiz RPh - 08/27/2023 10:32 AM EDT See [facility] note for documentation. Enrique Ramey RPh, [facility] Clinical Pharmacist [facility] 08/27/2023, 10:32 AM * Telephone Encounter - Sandra De Guzman CPhT - 08/27/2023 9:55 AM EDT Caller's name: Horacio Kathy call back number(OFFICE NUMBER FOR ): [phone] Reason for call: Patient returning call to Jana regarding her BP. Thank you, Sandra De Guzman CPhT [facility] 08/27/2023,9:55 AM documented in this encounter Plan of Treatment Upcoming Encounters Date Type Department Care Team (Late st Contact Info) Description 09/06/2023 1:00 PM EDT Anticoagulation Pharmacy, [facility] [address] [place] [address] Pharmacist2, [facility] [address] [place] [address] 09/13/2023 2:30 PM EDT Nurse Only Rheumatology [place] [id number] [facility] [place] [address] Pf, Nurse Rheum [address] [place] [address] [place] [address] 09/22/2023 10:00 AM EDT Imaging Radiology [address] 132 [facility] [place] [address] 09/22/2023 12:00 PM EDT Office Visit Pulmonary Medicine, [facility] 132 [facility] [place] [address] Stanley Chavez MD [address] [facility] [place] [address] 10/04/2023 11:00 AM EDT Imaging Radiology, [facility] 25[address] [facility] [place] [address] 10/04/2023 1:30 PM EDT Office Visit Allergy/Immunology [facility] [address] [place] [address] Felisa Garcia PA-C 200 [facility] [place] [address] 02/22/2024 11:15 AM EST Office Visit Dermatology [facility] [address] [place] [address] Phil Perez MD 200 [facility] [place] [address] 03/09/2024 2:40 PM EST Office Visit General Internal Medicine [facility] 200 [facility] [place] [address] Phil Maldonado MD 200 [facility] [place], [place] [address] 03/15/2024 10:20 AM EST Office Visit Rheumatology [place] [address] [employer] [place], [place] [address] Tristan Richards MD [facility] [employer] [place], [place] [address] 03/17/2024 2:00 PM EST Office Visit Nephrology, [facility] 200 [facility] [place], [place] [address] Gena Walton PA-C 200 [facility], [place] [address] Health Maintenance Due Date Last Done Comments COVID-19 Vaccine ( season) 2023 01/27/2023, 03/18/2022, 01/23/2021, Additional history exists Depression Screening 07/22/2023 07/21/2022 DTaP,Tdap,and Td Vaccines (2 - Td or Tdap) 09/08/2023 09/07/2013, 02/17/2010, 10/18/2001, Additional history exists DXA Scan 10/01/2023 09/30/2021, 070 07/2021, 09/25/2019, Additional history exists GFR 02/24/2024 08/24/2023, 04/0 10/2023, 02/04/2023, Additional history exists CKD HGB USE SMARTSET 20893 07/04/202407/04, 07/05/2023, 02/04/2023, Additional history exists CKD PHOS USE SMARTSET 09123 08/10/202407/27, 08/25/2022, 06/26/2021, Additional history exists TSH 08/10/2024 08/11/2023, 04/0 10/2023, 02/04/2023, Additional history exists Albumin/Creatinine Ratio 08/11/2024 024, 08/26/2022, 06/30/2021, Additional history exists Zoster Vaccines Discontinued 02/10/2007 Pneumococcal Vaccine: 65+ Years Completed 07/20/2014, 01/30/2008, 10/16/1994 Influenza Vaccine (FLU shot) Completed 01/05/2023, 01/16/2022, 12/27/2020, Additional history exists VITAMIN D LEVEL ONCE IN A LIFETIME-USE SMARTSET# 00220 Completed 08/24/2023, 04/01/2023, 11/13/2022, Additional history exists GARDASIL-HPV IMMUNIZATION SERIES Aged Out No longer eligible based on patient's age to complete this topic MENINGOCOCCAL (MENACTRA/MENVEO) Aged Out No longer eligible based on patient's age to complete this topic documented as of this encounter Medical Devices Implanted Type Area End Finder Forming Department Device Identifier Shelf Expiration Date Model / Serial / Lot Lens Intraoc 22.0 - [id number] - [id number] Implanted:Qty: 1 on 07/01/2021 by Gee Hagen MD at OR [facility] Right: Eye [employer] LOMB 02/25/2026 [id number] / [id number] / [id number] Lens Intraoc 19.5 - [id number] - [id number] Implanted:Qty: 1 on 07/15/2021 by Gee Hagen MD at OR [facility] Left: Eye BAUSCH & LOMB 02/25/2026 [id number] / [id number] / documented as of this encounter Care Teams Shooter Helper Relationship Specialty Start Date End Date Phil Maldonado MD 200 [facility] [address] PCP - General Internal Medicine 06/19/19 documented as of this encounter
--- OUTSIDE RECORDS SUMMARY | 2024-01-02 15:38 | External Medical Summary ---
Author Name Unknown Address Unknown Organization K09:[facility] [address] Laboratory Report Ordering Provider Test Date Status PRANAV HUERTAITIS 08/24/2023 11:41:24 Final Observation Date Value Abnormality Reference (Units ) Status BUN 08/24/2023 11:41:24 26 Above high normal 6-20 (mg/dL) Final Creatinine 08/24/2023 11:41:24 1.3 Above high normal 0.5-1.0 (mg/dL) Final Glomerular filtration rate/1.73 sq M.predicted [Volume Rate/Area] in Serum, Plasma or Blood by Creatinine-based formula (CKD-EPI) 08/24/2023 11:41:24 41 Below low normal >=60 (mL/min) Final eGFR is calculated based on the CKD-EPI 2020 equation Sodium 08/24/2023 11:41:24 142 135-146 (m mol/L) Final Potassium 08/24/2023 11:41:24 4.5 3.5-5.1 (m mol/L) Final Cl 08/24/2023 11:41:24 105 98-107 (mm ol/L) Final CO2 08/24/2023 11:41:24 22 22-32 (mmo l/L) Final Anion gap 08/24/2023 11:41:24 15 7-15 (mmol /L) Final Glucose 08/24/2023 11:41:24 94 70-120 (mg /dL) Final Calcium 08/24/2023 11:41:24 9.4 8.4-10.2 ( mg/dL) Final Performing Location [facility] [place] [address]
--- OUTSIDE RECORDS SUMMARY | 2024-01-02 15:38 | External Medical Summary | Summary of Care ---
Author Name Unknown Organization [facility] Address [address] [place] [address] Phone [phone] Care Team Providers Care Body Trimmer Name Role Phone Phil Maldonado MD Primary Care Provider + Reason for Visit * Reason Onset Date Comments Home Monitoring Alarm 08/27/2023 Encounter Details Date Type Department Care Team (Late st Contact Info) Description 08/27/2023 Home Monitoring Care Coordination [address], [place] [id number] Lucie Cade, KELLE HTN, goal below 130/80*; [...] as needed for Pain, Mild. 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 90 mL 3 3 Active Additional Information Patient taking differently:2 [place] NasalBID PRN, Rhinitis, Indications: Allergic Rhinitis, Reported [...] 3 Active Additional Information Patient taking differently:2 [place] Each Nostril Daily(AM),Indications: Allergic Rhinitis, Reported on [...] inj 60 mgIndications:Senile osteoporosis 60 mg SC [id number] 03/04/2023 02/27/2024 Active documented as of this [...] as of this encounter Progress Notes * Enrique Ruiz, LYN - 08/27/2023 9:13 AM EDT [facility] - Hypertension Management Patient Phone Numbers This patient was contacted as part of the [facility] 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 Blood Pressure Goal: 140/90 mmHg Type of Alert: Yellow Current Hypertension Medications: Spironolactone 25mg QAM Lisionpril HCTZ 20-12.5mg (take 2 tabs daily) Toprol XL 12.5mg QAM Previous antihypertensive use: Extra HCTZ stopped - patient preference Experiencing symptoms related to elevated BP: No Systolic Diastolic HR -July 135 63 69 -July 139 60 64 129 64 66 138 63 68 142 67 69 114 57 68 131 56 75 111 80 73 -July 129 54 70 Systolic Diastolic HR Average 130 63 69 Hi 142 80 75 Lo 111 54 64 Range 31 26 11 BP Readings from Last 3 Encounters: 08/24/23 110/56 08/11/23 120/56 07/05/23 110/58 Pulse Readings from Last 3 Encounters: 08/24/23 [...] mg/dL 26* 29* 25* ASSESSMENT & PLAN: Spoke to horacio and she had no symptoms and her BP dropped the next day to goal. MEDICATION CHANGES: none Hypertension Medications: Spironolactone 25mg QAM Lisionpril HCTZ 20-12.5mg (take 2 tabs daily) Toprol XL 12.5mg QAM HEALTH MAINTENANCE INTERVENTIONS: Labs: Ordered & Scheduled: Up to date FOLLOW UP: As needed. Enrique Ramey RPh Clinical Pharmacist - Fitter/Welder [facility] 08/27/2023, 9:13 AM * Lucie Cade LPN - 08/27/2023 9:10 AM EDT Horacio Yeung [phone] Horacio Yeung is currently participating in the [facility] Hypertension Management Program and had a reading on 08/27/23 of 135/63. Pt has alerted for an Average BP over 7 days > 130/80 . Parameters are currently set as follows: Average BP over 7 days > 130/80 Singular Systolic BP Reading < 90 or > 180 Singular Diastolic BP Reading <50 or > 120 Patient is reporting new symptoms or concerns. Please review [...] Description 09/06/2023 1:00 PM EDT Anticoagulation Pharmacy, [facility] [address] [place] [address] Pharmacist2, [facility] [place] [address] 09/13/2023 2:30 PM EDT Nurse Only Rheumatology [address] [place] [address] Pf, Nurse Rheum [address] [place] [address] [place] [address] 09/22/2023 10:00 AM EDT Imaging Radiology [facility] 1st [facility] [place] 132 [facility] [place] [address] 09/22/2023 12:00 PM EDT Office Visit Pulmonary Medicine, [facility] 132 [facility] [place] [address] Stanley Chavez MD [address] [place] [address] 10/04/2023 11:00 AM EDT Imaging Radiology, [address] [place] [address] 10/04/2023 1:30 PM EDT Office Visit Allergy/Immunology [facility] 200 [facility] [place] [address] Felisa Garcia PA-C 200 [facility] [place] [address] 02/22/2024 11:15 AM EST Office Visit Dermatology [facility] 200 [facility] [place] [address] Phil Perez MD [address] [place] [address] 03/09/2024 2:40 PM EST Office Visit General Internal Medicine [facility] 200 [facility] [place], [place] [address] Phil Maldonado MD 200 [facility] [place], [place] [address] 03/15/2024 10:20 AM EST Office Visit Rheumatology [place] [phone] [place], [place] [address] Tristan Richards MD [facility] [email or web address] [place], [place] [address] 03/17/2024 2:00 PM EST Office Visit Nephrology, [facility] 200 [facility] [place], [place] [address] Gena Walton PA-C 200 [facility] [place], [place] [address] Health Maintenance Due Date Last Done Comments COVID-19 Vaccine ( season) 2023 01/27/2023, 03/18/2022, 01/23/2021, Additional history exists Depression Screening 07/22/2023 07/21/2022 DTaP,Tdap,and Td Vaccines (2 - Td or Tdap) 09/08/2023 09/07/2013, 02/17/2010, 10/18/2001, Additional history exists DXA Scan 10/01/2023 09/30/2021, 070 07/2021, 09/25/2019, Additional history exists GFR 02/24/2024 08/24/2023, 040 10/2023, 02/04/2023, Additional history exists CKD HGB USE SMARTSET 90186 07/04/202407/04, 07/05/2023, 02/04/2023, Additional history exists CKD PHOS USE SMARTSET 09578 08/10/202407/27, 08/25/2022, 06/26/2021, Additional history exists TSH 08/10/2024 08/11/2023, 04/0 10/2023, 02/04/2023, Additional history exists Albumin/Creatinine Ratio 08/11/2024 024, 08/26/2022, 06/30/2021, Additional history exists Zoster Vaccines Discontinued 02/10/2007 Pneumococcal Vaccine: 65+ Years Completed 07/20/2014, 01/30/2008, 10/16/1994 Influenza Vaccine (FLU shot) Completed 01/05/2023, 01/16/2022, 12/27/2020, Additional history exists VITAMIN D LEVEL ONCE IN A LIFETIME-USE SMARTSET# 93399 Completed 08/24/2023, 04/01/2023, 11/13/2022, Additional history exists GARDASIL-HPV IMMUNIZATION SERIES Aged Out No longer eligible based on patient's age to complete this topic MENINGOCOCCAL (MENACTRA/MENVEO) Aged Out No longer eligible based on patient's age to complete this topic documented as of this encounter Medical Devices Implanted Type Area Woven Wood Shade Assembler Device Identifier Shelf Expiration Date Model / Serial / Lot Lens Intraoc 22.0 - [id number] - [id number] Implanted:Qty: 1 on 07/01/2021 by Gee Hagen MD at OR [facility] Right: Eye [employer]CH [employer] LOMB 02/25/2026 [id number] / [id number] / [id number] Lens Intraoc 19.5 - [id number] - [id number] Implanted:Qty: 1 on 07/15/2021 by Gee Hagen MD at OR [facility] Left: Eye BAUSCH & LOMB 02/25/2026 [id number] / [id number] / documented as of this encounter Visit Diagnoses Diagnosis HTN, goal below 130/80- Primary Unspecified essential hypertension Essential hypertension with goal blood pressure less than 140/90 documented in this encounter Care Teams Body Trimmer Relationship Specialty Start Date End Date Phil Maldonado MD [address] [place] [address] PCP - General Internal Medicine 06/19/19 documented as of this encounter
--- OUTSIDE RECORDS SUMMARY | 2024-01-02 15:38 | External Medical Summary | Summary of Care ---
Author Name Unknown Organization [facility] Address [address] [place] [address] Phone [phone] Care Team Providers Care Corner Trimmer Operator Name Role Phone Phil Maldonado MD Primary Care Provider + Encounter Details Date Type Department Care Team (Late st Contact Info) Description 08/25/2023 Orders Only Nephrology, [place] 200 [place] [address] Zemaitis, Gena Guidry PA-C 200 [facility] [place] [address] Chronic kidney disease, stage 3b ([facility])* Allergies Active Allergy Reactions Criticality Noted Date Comments Azithromycin Anaphylaxis High 08/11/2023 Sulfa Antibiotics Hives 10/29/1998 documented as of this encounter (statuses as of 08/25/2023) Medications Medication Sig Dispensed Refills Start Date [...] 30-600 MG Oral Tablet Extended Release 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 90 mL 3 3 Active Additional Information Patient taking differently:2 [place] NasalBID PRN, Rhinitis, Indications: Allergic Rhinitis, Reported [...] 3 Active Additional Information Patient taking differently:2 [place] Each Nostril Daily(AM),Indications: Allergic Rhinitis, Reported on [...] inj 60 mgIndications:Senile osteoporosis 60 mg SC [id number] 03/04/2023 02/27/2024 Active documented as of this encounter (statuses as of 08/25/2023) Active Problems Problem Noted Date Diagnosed Date [...] as of this encounter (statuses as of 08/25/2023) Resolved Problems Problem Noted Date Diagnosed Date [...] as of this encounter (statuses as of 08/25/2023) Immunizations Name Administration Dates Next Due COVID-19 [...] Description 09/06/2023 1:00 PM EDT Anticoagulation Pharmacy, [facility] 200 [facility] [place] [address] Pharmacist2, [facility] [address] [place] [address] 09/13/2023 2:30 PM EDT Nurse Only Rheumatology [facility] [address] [place] [address] Pf, Nurse Rheum [address] [place] [address] 09/22/2023 10:00 AM EDT Imaging Radiology [facility] 1st [facility] 132 [facility] [place] [address] 09/22/2023 12:00 PM EDT Office Visit Pulmonary Medicine, [facility] [address] [facility] [place] [address] Stanley Chavez MD [address] [place] [address] 10/04/2023 11:00 AM EDT Imaging Radiology, [address] [place], [place] [address] 10/04/2023 1:30 PM EDT Office Visit Allergy/Immunology [facility] 200 [facility] [place] [address] Felisa Garcia PA-C 200 [facility] [place] [address] 02/22/2024 11:15 AM EST Office Visit Dermatology [facility] 200 [facility] [place] [address] Phil Perez MD 200 [facility] [place], [place] [address] 03/09/2024 2:40 PM EST Office Visit General Internal Medicine [facility] 200 [facility] [place], [place] [address] Phil Maldonado MD 200 [place] [address] 03/15/2024 10:20 AM EST Office Visit Rheumatology [address] [place], [place] [address] Tristan Richards MD [facility] [address] 03/17/2024 2:00 PM EST Office Visit Nephrology, [facility] [address] [place], [place] [address] Gena Walton PAJereC 200 [facility] [place] [address] Pending Results Name Type Priority Associated Diagnoses Date /Time 25-HYDROXY VITAMIN D Lab Routine Chronic kidney disease, stage 3b (HCC) 08/24/2023 11:41 AM EDT Scheduled Orders Name Type Priority Associated Diagnoses Orde r Schedule 25-HYDROXY VITAMIN D Lab Routine Chronic kidney disease, stage 3b (HCC) Expected: 08/25/2023, Expires: 08/24/2024 Health Maintenance Due Date Last Done Comments COVID-19 Vaccine ( season) 2023 01/27/2023, 03/18/2022, 01/23/2021, Additional history exists Depression Screening 07/22/2023 07/21/2022 DTaP,Tdap,and Td Vaccines (2 - Td or Tdap) 09/08/2023 09/07/2013, 02/17/2010, 10/18/2001, Additional history exists DXA Scan 10/01/2023 09/30/2021, 070 07/2021, 09/25/2019, Additional history exists GFR 02/24/2024 08/24/2023, 04/0 10/2023, 02/04/2023, Additional history exists CKD HGB USE SMARTSET 07568 07/04/202407/04, 07/05/2023, 02/04/2023, Additional history exists CKD PHOS USE SMARTSET 24551 08/10/202407/27, 08/25/2022, 06/26/2021, Additional history exists TSH 08/10/2024 08/11/2023, 04/0 10/2023, 02/04/2023, Additional history exists Albumin/Creatinine Ratio 08/11/2024 024, 08/26/2022, 06/30/2021, Additional history exists Zoster Vaccines Discontinued 02/10/2007 Pneumococcal Vaccine: 65+ Years Completed 07/20/2014, 01/30/2008, 10/16/1994 Influenza Vaccine (FLU shot) Completed 01/05/2023, 01/16/2022, 12/27/2020, Additional history exists VITAMIN D LEVEL ONCE IN A LIFETIME-USE SMARTSET# 74355 Completed 04/01/2023, 11/13/2022, 06/26/2021, Additional history exists GARDASIL-HPV IMMUNIZATION SERIES Aged Out No longer eligible based on patient's age to complete this topic MENINGOCOCCAL (MENACTRA/MENVEO) Aged Out No longer eligible based on patient's age to complete this topic documented as of this encounter Medical Devices Implanted Type Area Commutator V Ring Assembler Device Identifier Shelf Expiration Date Model / Serial / Lot Lens Intraoc 22.0 - [id number] - [id number] Implanted:Qty: 1 on 07/01/2021 by Gee Hagen MD at OR [facility] Right: Eye [employer]USCH [employer] LOMB 02/25/2026 [id number] / [id number] / [id number] Lens Intraoc 19.5 - [id number] - [id number] Implanted:Qty: 1 on 07/15/2021 by Gee Hagen MD at OR [facility] Left: Eye BAUSCH & LOMB 02/25/2026 [id number] / [id number] / documented as of this encounter Visit Diagnoses Diagnosis Chronic kidney disease, stage 3b (HCC)- Primary documented in this encounter Care Teams Corner Trimmer Operator Relationship Specialty Start Date End Date Phil Maldonado MD 200 [facility] [place] [address] PCP - General Internal Medicine 06/19/19 documented as of this encounter
--- OUTSIDE RECORDS SUMMARY | 2024-01-02 15:38 | External Medical Summary | Summary of Care ---
Author Name Unknown Organization [facility] Address [address] [place] [address] Phone [phone] Care Team Providers Care Financial Services Manager Name Role Phone Phil Maldonado MD Primary Care Provider + Reason for Visit * Reason Comments Outpatient Testing Encounter Details Date Type Department Care Team (Late st Contact Info) Description 08/24/2023 11:40 AM EDT Laboratory Laboratory [facility] [address] [place] [phone] [facility] Lab Scene [address] [place] [address] Stage 3a chronic kidney disease (HCC) Allergies Active Allergy Reactions Criticality Noted Date Comments Azithromycin Anaphylaxis High 08/11/2023 Sulfa Antibiotics Hives 10/29/1998 documented as of this encounter (statuses as of 08/24/2023) Medications Medication Sig Dispensed Refills Start Date [...] 30-600 MG Oral 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 90 mL 3 3 Active Additional Information Patient taking differently:2 [place] NasalBID PRN, Rhinitis, Indications: Allergic Rhinitis, [...] 3 Active Additional Information Patient taking differently:2 [place] Each Nostril Daily(AM),Indications: Allergic Rhinitis, Reported [...] inj 60 mgIndications:Senile osteoporosis 60 mg SC [id number] 03/04/2023 02/27/2024 Active documented as of this encounter (statuses as of 08/24/2023) Active Problems Problem Noted Date Diagnosed Date [...] as of this encounter (statuses as of 08/24/2023) Resolved Problems Problem Noted Date Diagnosed Date [...] as of this encounter (statuses as of 08/24/2023) Immunizations Name Administration Dates Next Due COVID-19 [...] Care Team (Late st Contact Info) Description 08/24/2023 2:30 PM EDT Office Visit Nephrology, [facility] [address] [place] [address] ZemaitisGena PA-C [address] [place] [address] 09/06/2023 1:00 PM EDT Anticoagulation Pharmacy, [facility] [place] [address] [place] [address] Pharmacist2, [facility] [address] [place] [address] 09/13/2023 2:30 PM EDT Nurse Only Rheumatology [place] [address] [place] [address] Pf, Nurse Rheum [address] [place] [address] [address] 09/22/2023 10:00 AM EDT Imaging Radiology [facility] 1st [facility] [address] [facility] [place] [address] 09/22/2023 12:00 PM EDT Office Visit Pulmonary Medicine, [facility] [address] [facility] [place] [address] [facility] [address] [facility] [address] 10/04/2023 11:00 AM EDT Imaging Radiology, [place] [address] [facility] [place] [address] 10/04/2023 1:30 PM EDT Office Visit Allergy/Immunology [facility] [address] [place] [address] Felisa Garcia PA-C 200 [facility] [place] [address] 02/22/2024 11:15 AM EST Office Visit Dermatology [facility] [address] [place] [address] Phil Perez MD 200 [facility] [place] [address] 03/09/2024 2:40 PM EST Office Visit General Internal Medicine [facility] [place], [place] [address] Phil Maldonado MD 200 [facility] [place] [address] 03/15/2024 10:20 AM EST Office Visit Rheumatology [place] [address] [facility] [place] [address] Tristan Richards MD [address] [place] [address] [place] [address] Pending Results Name Type Priority Associated Diagnoses Date /Time BASIC METABOLIC PANEL Lab Routine Stage 3a chronic kidney disease (HCC) 08/24/2023 11:41 AM EDT Health Maintenance Due Date Last Done Comments COVID-19 Vaccine ( season) 2023 01/27/2023, 03/18/2022, 01/23/2021, Additional history exists Depression Screening 07/22/2023 07/21/2022 DTaP,Tdap,and Td Vaccines (2 - Td or Tdap) 09/08/2023 09/07/2013, 02/17/2010, 10/18/2001, Additional history exists DXA Scan 10/01/2023 09/30/2021, 07/2021, 09/25/2019, Additional history exists GFR 01/04/2024 07/05/2023, 11/2022, 01/05/2023, Additional history exists CKD HGB USE SMARTSET 27889 07/04/202407/04, 07/05/2023, 02/04/2023, Additional history exists CKD PHOS USE SMARTSET 20198 08/10/202407/27, 08/25/2022, 06/26/2021, Additional history exists TSH 08/10/2024 08/11/2023, 0 10/2023, 02/04/2023, Additional history exists Albumin/Creatinine Ratio 08/11/2024 024, 08/26/2022, 06/30/2021, Additional history exists Zoster Vaccines Discontinued 02/10/2007 Pneumococcal Vaccine: 65+ Years Completed 07/20/2014, 01/30/2008, 10/16/1994 Influenza Vaccine (FLU shot) Completed 01/05/2023, 01/16/2022, 12/27/2020, Additional history exists VITAMIN D LEVEL ONCE IN A LIFETIME-USE SMARTSET# [id number] Completed 04/01/2023, 11/13/2022, 06/26/2021, Additional history exists GARDASIL-HPV IMMUNIZATION SERIES Aged Out No longer eligible based on patient's age to complete this topic MENINGOCOCCAL (MENACTRA/MENVEO) Aged Out No longer eligible based on patient's age to complete this topic documented as of this encounter Medical Devices Implanted Type Area Sole Filler Device Identifier Shelf Expiration Date Model / Serial / Lot Lens Intraoc 22.0 - [id number] - [id number] Implanted:Qty: 1 on 07/01/2021 by Gee Hagen MD at OR [facility] Right: Eye [employer] 02/25/2026 [id number] / [id number] / [id number] Lens Intraoc 19.5 - [id number] - [id number] Implanted:Qty: 1 on 07/15/2021 by Gee Hagen MD at OR [facility] Left: Eye [employer] 02/25/2026 [id number] / [id number] / documented as of this encounter Visit Diagnoses Diagnosis Stage 3a chronic kidney disease (HCC) documented in this encounter Care Teams Financial Services Manager Relationship Specialty Start Date End Date Phil Maldonado MD 200 [place] [address] PCP - General Internal Medicine 06/19/19 documented as of this encounter
--- OUTSIDE RECORDS SUMMARY | 2024-01-02 15:38 | External Medical Summary | Summary of Care ---
Author Name Unknown Organization [facility] Address [address] [place] [address] Phone [phone] Care Team Providers Care White Lead Filterer Name Role Phone Phil Maldonado MD Primary Care Provider + Reason for Visit * Reason Comments Follow Up Encounter Details Date Type Department Care Team (Late st Contact Info) Description 08/24/2023 2:30 PM EDT Office Visit Nephrology, [facility] [address] [place] [address] ZemaitisGena PA-C 200 [facility] [place] [address] Stage 3b chronic kidney disease (HCC)*; HTN, goal below 140/90; Renal artery aneurysm (HCC) Allergies Active Allergy Reactions Criticality Noted [...] 30-600 MG Oral Tablet Extended Release 12 HourIndications: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 90 mL 3 3 Active Additional Information Patient taking differently:2 [place] NasalBID PRN, Rhinitis, Indications: Allergic Rhinitis, Reported [...] 3 Active Additional Information Patient taking differently:2 [place] Each Nostril Daily(AM),Indications: Allergic Rhinitis, Reported on [...] inj 60 mgIndications:Senile osteoporosis 60 mg SC [id number] 03/04/2023 02/27/2024 Active documented as of this [...] Sign Reading Time Taken Comments Blood Pressure 110/56 08/24/2023 2:30 PM EDT Pulse 78 08/24/2023 2:30 PM EDT Temperature 36.6 C (97.8 F) 08/24/2023 2:30 PM ED T Respiratory Rate 16 08/24/2023 2:30 PM EDT Oxygen Saturation - - Inhaled Oxygen Concentration - - Weight 85.6 kg (188 lb 11.2 oz) 08/24/2023 2:30 PM EDT Height - - Body Mass Index 31.4 08/11/2023 10:47 AM EDT documented in this encounter Progress Notes * Gena Walton PA-C - 08/24/2023 2:30 PM EDT NEPHROLOGY CLINIC NOTE Nephrology, [address] [place] [address] Patient Name: Horacio Yeung Patient Active Problem List Diagnosis Chronic rhinitis Essential hypertension with goal blood pressure less than 140/90 IDIO PROG POLYNEUROPATHY Dyslipidemia, goal LDL below 100 Vocal cord dysfunction Irritable bowel syndrome with diarrhea Hypothyroidism due to acquired atrophy of thyroid History of pulmonary embolism Generalized anxiety disorder Moderate persistent asthma without complication Age-related osteoporosis without current pathological fracture Lung nodules Aneurysm artery, 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 Gastro-esophageal reflux disease without esophagitis Essential tremor History of TIA (transient ischemic attack) Mild aortic regurgitation Chronic cough Nonallergic rhinitis Nasal septal perforation Class 1 obesity due to excess calories with serious comorbidity and body mass index (BMI) of 31.0 to 31.9 in adult Hypertensive kidney disease with stage 3b chronic kidney disease (HCC) Chronic kidney disease, stage 3b (HCC) BACKGROUND: 83 year old female presents for f/u of noproteinuric CKD3A and w/ hx of R renal artery aneurysm and hypertension Past Medical history includes asthma, polyneuropathy, gout, hyperlipidemia, hypothyroid, IBS, HTN, BL hip bursitis; pulmonary embolus admission fall 2018, lung nodule. Started by PCP in October, on amlodipine, benazepril, chlorthalidone. WILLIAM, hctz, diltiazem stopped. Asthma triggered by cold air and can be quite symptomatic. No regular exercise program. Does have friends who do Elder sneakers and yoga. Had been on naproxen every few weeks for osteoarthritis. As of March, not using.Also few times monthly in past Excedrin for chronic neck and shoulder stiffness which he feels contribute to daily headaches -- stopped this 2019; only thing she takes istylenol and hesitates before this now. Has never seen headache specialist; willing to do so if needed. Several BP med intolerances: Had been on hydralazine 25 mg twice daily in the past did not [id number] mg three times daily due to GI issues. Has tried increased beta-pal (more than 12.5 mg daily) but feels that mental status worsens. Home blood pressures often high but with higher dose hydralazine blood pressure would drop to under 140 mid day and toward supper increase again. Did not tolerate Lotrel due to felt strange; did not tolerate chlorthalidone due to GI upset. Did have trialof amlodipine for home bp in 140s; had ambulatory dysfunction and orthostatic sx w/ this. States she's doing remote BP monitoring through [employer] since August or September. Has been following and had ACEI increased more recently and AM SBP EGD 2013 >> no esophagitis, nonobstructing schatzki ring, small hiatal hernia. [facility] admission Mar 2022 for asthma flare and elevated WBC. 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 Takes in 4 x 8 oz servings of liquid daily. Pt used to drink pepsi all dayevery day >> quit doing this approx 2018; now drinks iced tea unsweetened and water (best shecan). Does suffer from early satiety so has to work to maintain this. No regular exercise program and does minimal housework due to her asthma. She attends Bible study weekly and volunteers 1 day weekly including at [employer] [facility] Also goes to the store and to doctor's appointments. 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 Today 08/24/23 Denies any recent hospitalizations, procedures or infections. Reports feeling better now than she has in over a year Reports in May dx of armani and ws prescribed 2rds of Azithromycin. Reports anaphylactic reaction with second round. Otherwise no recent changes to medications., Continues drinking 32 oz of water daily. Started making her own peach Ice tea Patient continues to check bp at home with remote bp program - Denies any need for phone calls for monitoring REVIEW OF SYSTEMS General: No fatigue, No change in weight Head: No significant headache Respiratory: ,No wheezing,+shortness of breath with exertion Cardiovascular:No chest pain, No palpitations, and No syncope, no falls Gastrointestinal: No nausea, vomiting, diarrhea No blood in stools Urinary: No dysuira, No hematuria. No flank pain Musculoskeletal:No edema Skin: No itching All other systems were reviewed and were negative. Current Outpatient Medications Medication Sig Dispense Refill COMPRESSOR/NEBULIZER MISC use for DuoNeb administration 1 Each 0 Spacer/Aero-Holding Chambers [place] Use with inhalers as instructed. 1 Device 2 Prolia 60 MG/ML Subcutaneous Solution Prefilled Syringe [...] as needed for Heartburn.) 30 Tablet 2 Warfarin Sodium 2.5 MG Oral Tablet (Coumadin) Take 1 tablet daily Or as directed by coag clinic (Patient taking differently: Take 1 tablet daily Or as directed by coag clinic) 90 Tablet 3 Mucinex DM 30-600 MG Oral Tablet Extended [...] DAILY IN THE MORNING) 30 Tablet 6 LORazepam 1 MG Oral Tablet (Ativan) Take 1 Tablet (1 mg) by mouth 3 times a day as needed for Anxiety. 30 Tablet 0 Lisinopril-hydroCHLOROthiazide 20-12.5 MG Oral Tablet Take 2 [...] BY MOUTH AT BEDTIME 90 Tablet 1 Trelegy Ellipta 100-62.5-25 MCG/ACT Aerosol Powder Breath Activated (Ahglzlqriwf-Yelxixcskatr-Xlewjlbsta) Inhale 1 Puff by mouth in the morning. 60 Blister Dosing Unit 0 Allopurinol 100 MG Oral Tablet (Zyloprim) Take 2 Tablets by mouth in the morning. Current Facility-Administered Medications Medication Dose Route Frequency Provider Last Rate Last Admin Denosumab (Prolia) subcut inj 60 mg 60 mg Subcutaneous Q6 Months Alejandrina Torres CRNP 60 mg at 03/11/23 1359 PHYSICAL EXAMINATION Last 4 BP Readings: BP Readings from Last 4 Encounters: 08/24/23 110/56 08/11/23 120/56 07/05/23 110/58 06/21/23 122/68 Last 3 Weights: Wt Readings from Last 3 Encounters: 08/24/23 85.6 kg (188 lb 11.2 oz) 08/11/23 84.9 kg (187 lb 3.2 oz) 06/21/23 85.7 kg (189 lb) BP 110/56 | Pulse 78 | Temp 36.6 C (97.8 F) (Tympanic) | Resp 16 | Wt 85.6 kg (188 lb 11.2 oz) | BMI 31.40 kg/m | BSA 1.98 m Wt Readings from Last 1 Encounters: 08/24/23 85.6 kg (188 lb 11.2 oz) General appearance: alert, no apparent distress. Ambulatory without assistance HEAD: Normocephalic, No masses, lesions, tenderness Respiratory: clear to auscultation, no wheezes, and no crackles Heart: regular rate and regular rhythm Abdomen: abdomen soft, non-tender, and no CVA tenderness EXTREMITIES: No edema, No cyanosis or clubbing Skin: skin color, texture, turgor are normal NEURO: alert & oriented x 3 with fluent speech, no focal motor/sensory deficits No tremor Patient is a reliable historian of events LABS: Latest Reference Range & Units 11/13/22 11:00 12/04/22 11:10 12/16/22 10:23 01/05/23 10:08 02/04/23 10:16 07/05/23 09:10 Sodium 135 - 146 mmol/L 139 139 138 140 141 139 Potassium 3.5 - 5.1 mmol/L 4.3 4.3 4.0 4.4 4.6 4.5 Chloride 98 - 107 mmol/L 102 101 100 102 105 101 CO2 22 - 32 mmol/L 25 25 24 24 25 23 BUN 6 - 20 mg/dL 28 (H) 27 (H) 22 (H) 22 (H) 25 (H) 29 (H) Creatinine 0.5 - 1.0 mg/dL 1.2 (H) 1.3 (H) 1.5 (H) 1.3 (H) 1.2 (H) 1.4 (H) Estimated Glomerular Filtration Rate >=60 mL/min 45 (L) 40 (L) 35 (L) 44 (L) 44 (L) 37 (L) Anion Gap 7 - 15 mmol/L 12 13 14 14 11 15 Glucose 70 - 120 mg/dL 84 128 (H) 112 124 (H) 101 105 Calcium 8.4 - 10.2 mg/dL 9.6 9.5 9.6 10.1 9.7 9.5 (H): Data is abnormally high (L): Data is abnormally low Latest Reference Range & Units 06/30/21 11:19 08/26/22 09:21 08/12/23 12:11 Albumin / Creatinine Ratio, Urine <30 mg/g Creat 25 <15 13 Protein/ Creatinine Ratio, Urine <150 mg/g 85 IMAGING: EXAM EXAM: CT ABD/PELVIS W IV CONTRAST - WO ORAL CONTRAST DATE and TIME: 02/06/2022 1:30 pm HISTORY CLINICAL INFORMATION: abd pain in epi adn LUQ and LLQ, nausea and chills - 1 week worsening - now diarrhea TECHNIQUE Oral Contrast: Oral contrast was not administered IV Contrast: IV contrast was administered Abdomen/Pelvis: with intravenous contrast COMPARISON CT abdomen 07/28/2021 FINDINGS LOWER CHEST: HEART(visualized): Unremarkable LUNG BASES: Unremarkable ABDOMEN/PELVIS: LINES AND DEVICES: None LIVER: Small cyst left lobe unchanged. BILE DUCTS: Mild intrahepatic bile duct dilatation and not uncommon following cholecystectomy. GALLBLADDER: Cholecystectomy. PANCREAS: Unremarkable SPLEEN: Small low-density mass posterior in spleen most likely cyst or hemangioma. ADRENALS: Unremarkable KIDNEYS/URETERS: Unremarkable BLADDER: Unremarkable BOWEL: Moderate-sized duodenal diverticulum. Diverticulosis colon. LYMPH NODES: Unremarkable VESSELS: Stable small right renal artery aneurysm measuring 1.7 x 1.4 cm transversely. REPRODUCTIVE ORGANS: Unremarkable PERITONEUM/RETROPERITONEUM: Unremarkable ABDOMINAL WALL/SOFT TISSUES: Unremarkable BONES: Severe facet degenerative changes lower lumbar spine. IMPRESSION IMPRESSION 1. No acute disease ASSESSMENT/PLAN: The patient's most recent labs (from today) were reviewed and the assessment/plan is as follows: CKD 3 with stable renal function. Volume status and chemistries stable. Non proteinuric Stage 3b chronic kidney disease (HCC) (Primary) - BASIC METABOLIC PANEL; Future; Expected date: 01/28/2024 - PTH; Future; Expected date: 08/24/2023 HTN, goal below 140/90 Remote bp monitoring going well. Cont with current medications : Lisinorpil/HTCZ 40-25mg, Spironolactone 25 mg, metoprolol 12.5 mg Renal artery aneurysm (HCC) CT scan complete 01/2023 shows Stable small right renal artery aneurysm measuring 1.7 x 1.4 cm transversely. Will send message to ask a doc for better reference on time frame for completion and follow up Labs placed for assessment in 6 month Cont to push fluids No changes to medications Renal artery aneurysm update ? Avoid medicines like aleve, advil, ibuprofen, aspirin more than 81 mg daily and other NSAIDS which are not good for kidney patients. Take only tylenol (acetaminophen) up to 2000 mg daily as needed for pain or as directed by your primary care provider. Reviewed previous status of kidney function and goals of care. All questions were answered. Follow-up: Return in about 6 months (around 02/24/2024). | Check-out note: With Mary Walton PA-C Nephrology, [address] [place] [address] documented in this encounter Nursing Notes * Ernestine Mendez MED ASSIST - 08/24/2023 2:29 PM EDT Chief Complaint Patient presents with Follow Up documented in this encounter Plan of Treatment Upcoming Encounters Date Type Department Care Team (Late st Contact Info) Description 09/06/2023 1:00 PM EDT Anticoagulation Pharmacy, [facility] [address] [place] [address] Pharmacist2, [facility] [address] [place] [address] 09/13/2023 2:30 PM EDT Nurse Only Rheumatology [facility] [address] [facility] [place] [address] Pf, Nurse Rheum [address] [place] [address] [place] [address] 09/22/2023 10:00 AM EDT Imaging Radiology [address] [facility] [address] 09/22/2023 12:00 PM EDT Office Visit Pulmonary Medicine, [facility] [address] [place] [address] Stanley Chavez MD [address] [facility] [place] [address] 10/04/2023 11:00 AM EDT Imaging Radiology, [facility] [address] [facility] [place] [address] 10/04/2023 1:30 PM EDT Office Visit Allergy/Immunology [facility] [address] [place] [address] Felisa Garcia PA-C [address] [place] [address] 02/22/2024 11:15 AM EST Office Visit Dermatology [facility] 200 [facility] [place], [place] [address] Phil Perez MD 200 [facility] [place], [place] [address] 03/09/2024 2:40 PM EST Office Visit General Internal Medicine [facility] 200 [facility] [place], [place] [address] Phil Maldonado MD 200 [facility] [place] [address] 03/15/2024 10:20 AM EST [facility] [address] [place] [address] Tristan Richards MD [facility] [employer] [place], [place] [address] 03/17/2024 2:00 PM EST Office Visit Nephrology, [facility] [address] [facility] [place], [place] [address] ZeGena hoffman PA-C 200 [facility] [place], [place] [address] Scheduled Orders Name Type Priority Associated Diagnoses Orde r Schedule BASIC METABOLIC PANEL Lab Routine Stage 3b chronic kidney disease (HCC) Expected: 01/28/2024, Expires: 08/23/2024 Health Maintenance Due Date Last Done Comments COVID-19 Vaccine ( season) 2023 01/27/2023, 03/18/2022, 01/23/2021, Additional history exists Depression Screening 07/22/2023 07/21/2022 DTaP,Tdap,and Td Vaccines (2 - Td or Tdap) 09/08/2023 09/07/2013, 02/17/2010, 10/18/2001, Additional history exists DXA Scan 10/01/2023 09/30/2021, 070 07/2021, 09/25/2019, Additional history exists GFR 02/24/2024 08/24/2023, 0 10/2023, 02/04/2023, Additional history exists CKD HGB USE SMARTSET 25310 07/04/202407/04, 07/05/2023, 02/04/2023, Additional history exists CKD PHOS USE SMARTSET 82066 08/10/202407/27, 08/25/2022, 06/26/2021, Additional history exists TSH 08/10/2024 08/11/2023, 0410/2023, 02/04/2023, Additional history exists Albumin/Creatinine Ratio 08/11/2024 024, 08/26/2022, 06/30/2021, Additional history exists Zoster Vaccines Discontinued 02/10/2007 Pneumococcal Vaccine: 65+ Years Completed 07/20/2014, 01/30/2008, 10/16/1994 Influenza Vaccine (FLU shot) Completed 01/05/2023, 01/16/2022, 12/27/2020, Additional history exists VITAMIN D LEVEL ONCE IN A LIFETIME-USE SMARTSET# [id number] Completed 08/24/2023, 04/01/2023, 11/13/2022, Additional history exists GARDASIL-HPV IMMUNIZATION SERIES Aged Out No longer eligible based on patient's age to complete this topic MENINGOCOCCAL (MENACTRA/MENVEO) Aged Out No longer eligible based on patient's age to complete this topic documented as of this encounter Medical Devices Implanted Type Area Mangle Roll Operator Device Identifier Shelf Expiration Date Model / Serial / Lot Lens Intraoc 22.0 - [id number] - [id number] Implanted:Qty: 1 on 07/01/2021 by Gee Hagen MD at OR [facility] Right: Eye [employer] 02/25/2026 [id number] / [id number] / [id number] Lens Intraoc 19.5 - [id number] - [id number] Implanted:Qty: 1 on 07/15/2021 by Gee Hagen MD at OR [facility] Left: Eye [employer] 02/25/2026 [id number] / [id number] / documented as of this encounter Results * (ABNORMAL) PTH (08/24/2023 11:41 AM EDT) PTH 70(H) 15 - 65 pg/mL 08/25/2023 3:09 AM EDT LABORATORY GM Blood Venous blood specimen / Unknown Venipuncture / Unknown 08/24/2023 11:41 AM EDT 08/24/2023 11:41 AM EDT Gena Walton PA-C LAB BLOOD ORD ER[facility]LES LABORATORY [facility] [address] [place] [address] documented in this encounter Visit Diagnoses Diagnosis Stage 3b chronic kidney disease (HCC)- Primary HTN, goal below 140/90 Unspecified essential hypertension Renal artery aneurysm (HCC) Aneurysm of renal artery documented in this encounter Care Teams White Lead Filterer Relationship Specialty Start Date End Date Phil Maldonado MD [address] [place] [address] PCP - General Internal Medicine 06/19/19 documented as of this encounter"
--- OUTSIDE RECORDS SUMMARY | 2024-01-02 15:38 | External Medical Summary ---
Author Name Unknown Address Unknown Organization K01:[place] [facility] [place] [address] [place] [address] Laboratory Report Ordering Provider Test Date Status ANGELA BAUTISTA 08/12/2023 12:11:13 Final Normal: <30 mg/g creatinine< br/>High: 30-300 mg/g creatinine
Very High: >300 mg/g creatinine
Nephrotic: >2200 mg/g creatinine Observation Date Value Abnormality Reference (Units ) Status Albumin, Urine 08/12/2023 12:11:13 1.63 (mg/dL) Final Creatinine, Urine 08/12/2023 12:11:13 127 (mg/dL) Final Albumin/Creatinine [Mass Ratio] in Urine 08/12/2023 12:11:13 13 <30 (mg/g Creat) Final Performing Location [place] [facility] [place] [address] [place] [address]
--- OUTSIDE RECORDS SUMMARY | 2024-01-02 15:38 | External Medical Summary | Summary of Care ---
Author Name Unknown Organization [facility] Address [address] [place] [address] Phone [phone] Care Team Providers Care Rim Technician Name Role Phone Phil Maldonado MD Primary Care Provider + Encounter Details Date Type Department Care Team (Late st Contact Info) Description 08/17/2023 Population Health External Data Unspecified Department Allergies Active Allergy Reactions Criticality Noted Date Comments Azithromycin Anaphylaxis High 08/11/2023 Sulfa Antibiotics Hives 10/29/1998 documented as of this encounter (statuses as of 08/18/2023) Medications Medication Sig Dispensed Refills Start Date [...] 30-600 MG Oral Tablet Extended Release 12 HourIndications: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 90 mL 3 3 Active Additional Information Patient taking differently:2 [place] NasalBID PRN, Rhinitis, Indications: Allergic Rhinitis, Reported [...] 3 Active Additional Information Patient taking differently:2 [place] Each Nostril Daily(AM),Indications: Allergic Rhinitis, Reported on [...] inj 60 mgIndications:Senile osteoporosis 60 mg SC [id number] 03/04/2023 02/27/2024 Active documented as of this encounter (statuses as of 08/18/2023) Active Problems Problem Noted Date Diagnosed Date [...] as of this encounter (statuses as of 08/18/2023) Resolved Problems Problem Noted Date Diagnosed Date [...] as of this encounter (statuses as of 08/18/2023) Immunizations Name Administration Dates Next Due COVID-19 [...] 08/24/2023 2:30 PM EDT Office Visit Nephrology, [facility] [address] [place] [address] ZeGena hoffman PA-C [address] [place] [address] 09/06/2023 1:00 PM EDT Anticoagulation Pharmacy, [facility] [address] [place] [address] [address] Pharmacist2, [facility] [address] [place] [address] 09/13/2023 2:30 PM EDT Nurse Only Rheumatology [facility] [address] [place] [address] Pf, Nurse Rheum [address] [place] [address] 09/22/2023 10:00 AM EDT Imaging Radiology [address] [facility] [place] [address] 09/22/2023 12:00 PM EDT Office Visit Pulmonary Medicine, [facility] [address] [place] [address] Stanley Chavez MD [address] [place] [address] 10/04/2023 11:00 AM EDT Imaging Radiology, [address] [place] [address] 10/04/2023 1:30 PM EDT Office Visit Allergy/Immunology [facility] [address] [facility] [place] [address] Felisa Garcia PA-C [address] [facility] [place] [address] 02/22/2024 11:15 AM EST Office Visit Dermatology [facility] [address] [facility] [place] [address] Phil Perez MD [address] [facility] [place], [place] [address] 03/09/2024 2:40 PM EST Office Visit General Internal Medicine [facility] [address] [facility] [place] [address] Phil Maldonado MD [address] [facility] [place], [place] [address] 03/15/2024 10:20 AM EST Office Visit Rheumatology [address] [place], [place] [address] Tristan Richards MD [facility] Message [facility] [place], [place] [address] Health Maintenance Due Date Last Done Comments COVID-19 Vaccine (2022- season) 2023 01/27/2023, 03/18/2022, 01/23/2021, Additional history exists Depression Screening 07/22/2023 07/21/2022 DTaP,Tdap,and Td Vaccines (2 - Td or Tdap) 09/08/2023 09/07/2013, 02/17/2010, 10/18/2001, Additional history exists DXA Scan 10/01/2023 09/30/2021, 07/2021, 09/25/2019, Additional history exists GFR 01/04/2024 07/05/2023, 11/2022, 01/05/2023, Additional history exists CKD HGB USE SMARTSET 61204 07/04/202407/04, 07/05/2023, 02/04/2023, Additional history exists CKD PHOS USE SMARTSET 81854 08/10/202407/27, 08/25/2022, 06/26/2021, Additional history exists TSH 08/10/2024 08/11/2023, 0 10/2023, 02/04/2023, Additional history exists Albumin/Creatinine Ratio 08/11/2024 024, 08/26/2022, 06/30/2021, Additional history exists Zoster Vaccines Discontinued 02/10/2007 Pneumococcal Vaccine: 65+ Years Completed 07/20/2014, 01/30/2008, 10/16/1994 Influenza Vaccine (FLU shot) Completed 01/05/2023, 01/16/2022, 12/27/2020, Additional history exists VITAMIN D LEVEL ONCE IN A LIFETIME-USE SMARTSET# [id number] Completed 04/01/2023, 11/13/2022, 06/26/2021, Additional history exists GARDASIL-HPV IMMUNIZATION SERIES Aged Out No longer eligible based on patient's age to complete this topic MENINGOCOCCAL (MENACTRA/MENVEO) Aged Out No longer eligible based on patient's age to complete this topic documented as of this encounter Medical Devices Implanted Type Area Silver Plater Device Identifier Shelf Expiration Date Model / Serial / Lot Lens Intraoc 22.0 - [id number] - [id number] Implanted:Qty: 1 on 07/01/2021 by Gee Hagen MD at OR [facility] Right: Eye [employer]OM[employer] 02/25/2026 [id number] / [id number] / [id number] Lens Intraoc 19.5 - [id number] - [id number] Implanted:Qty: 1 on 07/15/2021 by Gee Hagen MD at OR [facility] Left: Eye [employer]CH [employer] LOMB 02/25/2026 [id number] / [id number] / documented as of this encounter Care Teams Rim Technician Relationship Specialty Start Date End Date Phil Maldonado MD [address] [place] [address] PCP - General Internal Medicine 06/19/19 documented as of this encounter
--- OUTSIDE RECORDS SUMMARY | 2024-01-02 15:38 | External Medical Summary ---
Author Name Unknown Address Unknown Organization K01:[facility] [place] [address] [place] [address] Laboratory Report Ordering Provider Test Date Status NATY HUERTA 08/24/2023 11:41:24 Final Deficient: <20 ng/mL
Ins ufficient: 20-29 ng/mL
Recommended/Optimum:30-50 ng/mL

Vitamin D intoxication is rare. If suspicious of Vitamin D toxicity, evaluation of serum Calcium and PTH is recommended. Observation Date Value Abnormality Reference (Units ) Status 25-OH Vitamin D total 08/24/2023 11:41:24 44 >19 (ng/mL) Final Performing Location LABORATORY C - [address] [place] [address]
--- OUTSIDE RECORDS SUMMARY | 2024-01-02 15:38 | External Medical Summary | Summary of Care ---
Author Name Unknown Organization [facility] Address [address] [place] [address] Phone [phone] Care Team Providers Care Medical Collections Specialist Name Role Phone Phil Maldonado MD Primary Care Provider + Reason for Visit * Reason Comments Outpatient Testing Encounter Details Date Type Department Care Team (Late st Contact Info) Description 08/12/2023 12:20 PM EDT Laboratory Laboratory [facility] [address] [place] [address] Pod3, Specimen Drop Off [facility] [address] [place] [address] Hypertensive kidney disease with stage 3b chronic kidney disease (HCC) Allergies Active Allergy Reactions Criticality Noted Date Comments Azithromycin Anaphylaxis High 08/11/2023 Sulfa Antibiotics Hives 10/29/1998 documented as of this encounter (statuses as of 08/12/2023) Medications Medication Sig Dispensed Refills Start Date End Date Status COMPRESSOR/NEBULIZER MISCIndications:Bact erial pneumonia,Asthma, mild persistent use for DuoNeb administration 1 Each 0 5 Active Spacer/Aero-Holding Chambers DEVIIndications:Asth ma, mild persistent Use with inhalers as instructed. 1 Device 2 7 Active Prolia 60 MG/ML Subcutaneous Solution Prefilled Syringe (denosumab)Indicatio ns:Osteoporosis Inject 60 mg under the skin every 6 months. 1 Each 0 0 Active Acetaminophen 500 MG Oral Tablet (Tylenol)Indications :Neck pain,Chronic right shoulder pain Take 2 Tablets by mouth every 12 hours as needed for Pain, Mild. 100 Tab 0 1 Active Dicyclomine HCl 10 MG Oral [...] in 8 ounces of water or juice. 0 3 Active Albuterol Sulfate (2.5 MG/3ML) 0.083% Inhalation Nebulization Solution (Proventil)Indicatio ns:Moderate persistent asthma without complication Inhale 1 Vial via nebulizer every 6 hours as needed for Wheezing. 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 90 mL 3 3 Active Additional Information Patient taking differently:2 [place] NasalBID PRN, Rhinitis, Indications: Allergic Rhinitis, Reported [...] 3 Active Additional Information Patient taking differently:2 [place] Each Nostril Daily(AM),Indications: Allergic Rhinitis, Reported on 05/26/2023 Omeprazole 40 MG Oral Capsule Delayed Release (PriLOSEC)Indication s:Heartburn Take 1 Capsule by mouth daily as needed for Heartburn. 0 3 Active Levocetirizine Dihydrochloride 5 MG Oral [...] as needed for Anxiety. 30 Tablet 0 4 Active Lisinopril-hydroCHLO ROthiazide 20-12.5 MG Oral [...] the morning. 60 Blister Dosing Unit 0 4 Active Allopurinol 100 MG Oral Tablet (Zyloprim)Indication s:Gout Prophylaxis Take 2 Tablets by mouth in the morning. 0 4 Active Hospital, Clinic, or Other Facility Administered Medication Ordered Dose Route Frequency Start Date End Date Status Denosumab (Prolia) subcut inj 60 mgIndications:Senile osteoporosis 60 mg SC [id number] 03/04/2023 02/27/2024 Active documented as of this encounter (statuses as of 08/12/2023) Active Problems Problem Noted Date Diagnosed Date [...] as of this encounter (statuses as of 08/12/2023) Resolved Problems Problem Noted Date Diagnosed Date [...] as of this encounter (statuses as of 08/12/2023) Immunizations Name Administration Dates Next Due COVID-19 [...] EDT Office Visit Nephrology, [facility] [address] [place] [address] ZemaitisGena PA-C [address] [place] [address] 09/06/2023 1:00 PM EDT Anticoagulation Pharmacy, [facility] [place] [address] [place] [address] Pharmacist2, [facility] [address] [place] [address] 09/13/2023 2:30 PM EDT Nurse Only Rheumatology [address] [place] [address] Pf, Nurse Rheum [address] [facility] [address] 09/22/2023 10:00 AM EDT Imaging Radiology [facility] [address] [facility] [address] [place], [place] [address] 09/22/2023 12:00 PM EDT Office Visit Pulmonary Medicine, [facility] [address] [place] [address] [facility]avez [facility] [address] [facility] [address] 10/04/2023 11:00 AM EDT Imaging Radiology, [place] [address] [facility] [place] [address] 10/04/2023 1:30 PM EDT Office Visit Allergy/Immunology [facility] [address] [place] [address] Felisa Garcia PA-C 200 [facility] [place] [address] 02/22/2024 11:15 AM EST Office Visit Dermatology [facility] [address] [facility] [place], [place] [address] Phil Perez MD [address] [facility] [place] [address] 03/09/2024 2:40 PM EST Office Visit General Internal Medicine [facility] [address] [facility] [place], [place] [address] Phil Maldonado MD [address] [facility] [place], [place] [address] 03/15/2024 10:20 AM EST Office Visit Rheumatology [address] [place] [address] Tristan Richards MD [address] [place] [address] [place] [address] Pending Results Name Type Priority Associated Diagnoses Date /Time ALBUMIN / CREATININE RATIO, URINE Lab Routine Hypertensive kidney disease with stage 3b chronic kidney disease (HCC) 08/12/2023 12:11 PM EDT Health Maintenance Due Date Last Done Comments Depression Screening 07/22/2023 07/21/2022 Albumin/Creatinine Ratio 08/27/2023 023, 06/30/2021, 03/11/2017, Additional history exists DTaP,Tdap,and Td Vaccines (2 - Td or Tdap) 09/08/2023 09/07/2013, 02/17/2010, 10/18/2001, Additional history exists DXA Scan 10/01/2023 09/30/2021, 0 07/2021, 09/25/2019, Additional history exists GFR 01/04/2024 07/05/2023, 110 11/2022, 01/05/2023, Additional history exists CKD HGB USE SMARTSET 78488 07/04/202407/04, 07/05/2023, 02/04/2023, Additional history exists CKD PHOS USE SMARTSET 52035 08/10/202407/27, 08/25/2022, 06/26/2021, Additional history exists TSH 08/10/2024 08/11/2023, 04/0 10/2023, 02/04/2023, Additional history exists Zoster Vaccines Discontinued 02/10/2007 Pneumococcal Vaccine: 65+ Years Completed 07/20/2014, 01/30/2008, 10/16/1994 Influenza Vaccine (FLU shot) Completed 01/05/2023, 01/16/2022, 12/27/2020, Additional history exists COVID-19 Vaccine Completed 01/27/2023, , 01/23/2021, Additional history exists VITAMIN D LEVEL ONCE IN A LIFETIME-USE SMARTSET# [id number] Completed 04/01/2023, 11/13/2022, 06/26/2021, Additional history exists GARDASIL-HPV IMMUNIZATION SERIES Aged Out No longer eligible based on patient's age to complete this topic MENINGOCOCCAL (MENACTRA/MENVEO) Aged Out No longer eligible based on patient's age to complete this topic documented as of this encounter Medical Devices Implanted Type Area Steel Fabricating Supervisor Device Identifier Shelf Expiration Date Model / Serial / Lot Lens Intraoc 22.0 - [id number] - [id number] Implanted:Qty: 1 on 07/01/2021 by Gee Hagen MD at OR [facility] Right: Eye [employer] LOMB 02/25/2026 [id number] / [id number] / [id number] Lens Intraoc 19.5 - [id number] - [id number] Implanted:Qty: 1 on 07/15/2021 by Gee Hagen MD at OR [facility] Left: Eye BAUSCH & LOMB 02/25/2026 [id number] / [id number] / documented as of this encounter Visit Diagnoses Diagnosis Hypertensive kidney disease with stage 3b chronic kidney disease (HCC) documented in this encounter Care Teams Medical Collections Specialist Relationship Specialty Start Date End Date Phil Maldonado MD [address] [place] [address] PCP - General Internal Medicine 06/19/19 documented as of this encounter
--- OUTSIDE RECORDS SUMMARY | 2024-01-02 15:38 | External Medical Summary ---
Author Name Unknown Address Unknown Organization K01[place] [facility] [place] [address] [place] [address] Laboratory Report Ordering Provider Test Date Status NATY HUERTA 08/24/2023 11:41:24 Final Observation Date Value Abnormality Reference (Units ) Status Parathyrin.intact [Mass/volume] in Serum or Plasma 08/24/2023 11:41:24 70 Above high normal 15-65 (pg/mL) Final Performing Location [place] [facility] [place] [address] [place] [address]
--- OUTSIDE RECORDS SUMMARY | 2024-01-02 15:38 | External Medical Summary | Summary of Care ---
Author Name Unknown Organization [facility] Address [address] [place] [address] Phone [phone] Care Team Providers Care Php Developer Name Role Phone Phil Maldonado MD Primary Care Provider + Reason for Visit * Reason Comments Follow Up Encounter Details Date Type Department Care Team (Late st Contact Info) Description 08/24/2023 2:30 PM EDT Office Visit Nephrology, [facility] [address] [place] [address] ZemaitisGena PA-C 200 [facility] [place] [address] Stage 3b chronic kidney disease (HCC)*; HTN, goal below 140/90; Renal artery aneurysm (HCC) Allergies Active Allergy Reactions Criticality Noted Date Comments Azithromycin Anaphylaxis High 08/11/2023 Sulfa Antibiotics Hives 10/29/1998 documented as of this encounter (statuses as of 08/26/2023) Medications Medication Sig Dispensed Refills Start Date [...] 30-600 MG Oral Tablet Extended Release 12 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 90 mL 3 3 Active Additional Information Patient taking differently:2 [place] NasalBID PRN, Rhinitis, Indications: Allergic Rhinitis, Reported [...] 3 Active Additional Information Patient taking differently:2 [place] Each Nostril Daily(AM),Indications: Allergic Rhinitis, Reported on [...] inj 60 mgIndications:Senile osteoporosis 60 mg SC [id number] 03/04/2023 02/27/2024 Active documented as of this encounter (statuses as of 08/26/2023) Active Problems Problem Noted Date Diagnosed Date [...] as of this encounter (statuses as of 08/26/2023) Resolved Problems Problem Noted Date Diagnosed Date [...] as of this encounter (statuses as of 08/26/2023) Immunizations Name Administration Dates Next Due COVID-19 [...] 2:30 PM EDT NEPHROLOGY CLINIC NOTE Nephrology, [facility] [address] [place] [address] Patient Name: Horacio Yeung Patient Active Problem [...] twice daily in the past did not vyswwuwv07 mg three times daily due to GI [...] States she's doing remote BP monitoring through [employer] since August or September. Has been following and had ACEI increased more recently and AM SBP EGD 2013 >> no esophagitis, nonobstructing schatzki ring, small hiatal hernia. [facility] admission Mar 2022 for asthma flare and elevated WBC. [facility] admission late August 2022 for TIA [...] to doctor's appointments. 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 Today 08/24/23 Denies any recent hospitalizations, procedures or infections. Reports feeling better now than she has in over a year Reports in May dx of armani and zuleyma prescribed 2rds of Azithromycin. Reports anaphylactic reaction [...] Ellipta 100-62.5-25 MCG/ACT Aerosol Powder Breath Activated (Conoznfnbpo-Ddglpouzxvsz-Ojvllvmnmq) Inhale 1 Puff by mouth in the [...] Expected date: 08/24/2023 HTN, goal below 140/90 Renal artery aneurysm (HCC) Labs placed for assessment in 6 month [...] 02/24/2024). | Check-out note: With Mary Walton PAJereC Nephrology, [address] [place] [address] The patient's most recent labs (from this month) were reviewed and the assessment/plan is as follows: Stage 3a chronic kidney disease (HCC) (Primary) - BASIC METABOLIC PANEL; Future; Expected date: 08/26/2023 HTN, goal below 140/90 Remote bp monitoring going well recommend trial of tighter targets <130/80. 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 Labs placed for assessment. No changes to medications Will look to repeat update status of renal artery aneurysm this year Avoid medicines like aleve, advil, ibuprofen, aspirin more than 81 mg daily and other NSAIDS which are not good for kidney patients. Take only tylenol (acetaminophen) up to 2000 mg daily as needed for pain or as directed by your primary care provider. Reviewed previous status of kidney function and goals of care. All questions were answered. documented in this encounter Nursing Notes * Ernestine Mendez MED ASSIST - 08/24/2023 2:29 PM EDT Chief Complaint Patient presents with Follow Up documented in this encounter Plan of Treatment Upcoming Encounters Date Type Department Care Team (Late st Contact Info) Description 09/06/2023 1:00 PM EDT Anticoagulation Pharmacy, [facility] 200 [facility] [place] [address] Pharmacist2, [facility] [address] [place] [address] 09/13/2023 2:30 PM EDT Nurse Only Rheumatology [place] [address] [place] [address] Pf, Nurse Rheum [facility] [place] [place] [address] 09/22/2023 10:00 AM EDT Imaging Radiology [facility] 1st [facility] [address] [facility] [place] [address] 09/22/2023 12:00 PM EDT Office Visit Pulmonary Medicine, [facility] 132 [facility] [place] [address] Stanley Chavez MD [address] [facility] [address] 10/04/2023 11:00 AM EDT Imaging Radiology, [place] [address] [place] [address] 10/04/2023 1:30 PM EDT Office Visit Allergy/Immunology [facility] [address] [place] [address] Felisa Garcia PA-C [address] [place] [address] 02/22/2024 11:15 AM EST Office Visit Dermatology [facility] 200 [facility] [place], [place] [address] Phil Perez MD 200 [place] [address] 03/09/2024 2:40 PM EST Office Visit General Internal Medicine [facility] 200 [facility] [place], [place] [address] Phil Maldonado MD 200 [facility] [place] [address] 03/15/2024 10:20 AM EST Office Visit Rheumatology [place] [address] [address] [place], [place] [address] Tristan Richards MD [facility] [employer], [place] [address] 03/17/2024 2:00 PM EST Office Visit Nephrology, [facility] 200 [facility] [place], [place] [address] ZeGena hoffman PA-C 200 [facility], [place] [address] Scheduled Orders Name Type Priority Associated Diagnoses [...] Additional history exists CKD HGB USE SMARTSET 83224 07/04/202407/04, 07/05/2023, 02/04/2023, Additional history exists CKD PHOS USE SMARTSET 84954 08/10/202407/27, 08/25/2022, 06/26/2021, Additional history exists TSH 08/10/2024 08/11/2023, 0 10/2023, 02/04/2023, Additional history exists Albumin/Creatinine Ratio 08/11/2024 024, 08/26/2022, 06/30/2021, Additional history exists Zoster Vaccines Discontinued 02/10/2007 Pneumococcal Vaccine: 65+ Years Completed 07/20/2014, 01/30/2008, 10/16/1994 Influenza Vaccine (FLU shot) Completed 01/05/2023, 01/16/2022, 12/27/2020, Additional history exists VITAMIN D LEVEL ONCE IN A LIFETIME-USE SMARTSET# 87349 Completed 08/24/2023, 04/01/2023, 11/13/2022, Additional history exists GARDASIL-HPV IMMUNIZATION SERIES Aged Out No longer eligible based on patient's age to complete this topic MENINGOCOCCAL (MENACTRA/MENVEO) Aged Out No longer eligible based on patient's age to complete this topic documented as of this encounter Medical Devices Implanted Type Area Paid Search Manager Device Identifier Shelf Expiration Date Model / Serial / Lot Lens Intraoc 22.0 - [id number] - [id number] Implanted:Qty: 1 on 07/01/2021 by Gee Hagen MD at OR [facility] Right: Eye [employer]USCH [employer] LOMB 02/25/2026 [id number] / [id number] / [id number] Lens Intraoc 19.5 - [id number] - [id number] Implanted:Qty: 1 on 07/15/2021 by Gee Hagen MD at OR [facility] Left: Eye BAUSCH & LOMB 02/25/2026 [id number] / [id number] / documented as of this encounter Results * (ABNORMAL) PTH (08/24/2023 11:41 AM EDT) PTH 70(H) 15 - 65 pg/mL 08/25/2023 3:09 AM EDT LABORATORY GM Blood Venous blood specimen / Unknown Venipuncture / Unknown 08/24/2023 11:41 AM EDT 08/24/2023 11:41 AM EDT Gena Walton PA-C LAB BLOOD ORD [facility] LABORAT[facility] GM [address] [place] [address] documented in this encounter Visit Diagnoses Diagnosis Stage 3b chronic kidney disease (HCC)- Primary HTN, goal below 140/90 Unspecified essential hypertension Renal artery aneurysm (HCC) Aneurysm of renal artery documented in this encounter Care Teams Php Developer Relationship Specialty Start Date End Date Phil Maldonado MD 200 [facility] [place] [address] PCP - General Internal Medicine 06/19/19 documented as of this encounter"
--- OUTSIDE RECORDS SUMMARY | 2024-01-02 15:38 | External Medical Summary | Summary of Care ---
Author Name Unknown Organization [facility] Address [address] [place] [address] Phone [phone] Care Team Providers Care Human Resources Clerk Name Role Phone Phil Maldonado MD Primary Care Provider + Reason for Visit * Reason Comments Follow Up Encounter Details Date Type Department Care Team (Late st Contact Info) Description 08/24/2023 2:30 PM EDT Office Visit Nephrology, [facility] [address] [place] [address] ZemaitisGena PA-C [address] [facility] 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 90 mL 3 3 Active Additional Information Patient taking differently:2 [place] NasalBID PRN, Rhinitis, Indications: Allergic Rhinitis, Reported [...] 3 Active Additional Information Patient taking differently:2 [place] Each Nostril Daily(AM),Indications: Allergic Rhinitis, Reported on [...] inj 60 mgIndications:Senile osteoporosis 60 mg SC [id number] 03/04/2023 02/27/2024 Active documented as of this [...] NOTE Nephrology, [facility] [address] [place] [address] Patient Name: Horacio Yeung Patient Active Problem [...] twice daily in the past did not zusulufu02 mg three times daily due to GI [...] States she's doing remote BP monitoring through [employer] since August or September. Has been following and had ACEI increased more recently and AM SBP EGD 2013 >> no esophagitis, nonobstructing schatzki ring, small hiatal hernia. [facility] admission Mar 2022 for asthma flare and elevated WBC. [facility] admission late August 2022 for TIA - [...] to doctor's appointments. Planning upcoming trip to [facility] to see 3 grandchildren is [...] Ellipta 100-62.5-25 MCG/ACT Aerosol Powder Breath Activated (Yimiowiuvrx-Aaehfcgqutec-Ldyyygoafe) Inhale 1 Puff by mouth in the [...] Check-out note: With Mary Walton PAJereC Nephrology, [address] [place] [address] The patient's most recent labs (from this [...] Description 09/06/2023 1:00 PM EDT Anticoagulation Pharmacy, [facility] 200 [facility] [place] [address] Pharmac[address], [facility] [address] [place] [address] 09/13/2023 2:30 PM EDT Nurse Only Rheumatology [place] [address] [place] [address] Pf, Nurse Rheum [facility] [place] [address] [address] 09/22/2023 10:00 AM EDT Imaging Radiology [facility] 1st [facility] 132 [facility] [place] [address] 09/22/2023 12:00 PM EDT Office Visit Pulmonary Medicine, [facility] 132 [facility] [place] [address] Stanley Chavez [facility] [address] [facility] [address] 10/04/2023 11:00 AM EDT Imaging Radiology, [place] [address] [place] [address] [address] 10/04/2023 1:30 PM EDT Office Visit Allergy/Immunology [facility] [address] [place] [address] Felisa Garcia PA-C [address] [place] [address] 02/22/2024 11:15 AM EST Office Visit Dermatology [facility] [address] [facility] [place], [place] [address] Phil Perez MD 200 [place] [address] 03/09/2024 2:40 PM EST Office Visit General Internal Medicine [facility] [address] [facility] [place], [place] [address] Phil Maldonado MD 200 [facility] [address] 03/15/2024 10:20 AM EST Office Visit Rheumatology [place] [address] [employer] [place], [place] [address] Tristan Richards MD [facility] [employer] [place], [place] [address] 03/17/2024 2:00 PM EST Office Visit Nephrology, [facility] [address] [facility] [place], [place] [address] ZeGena hoffman PA-C 200 [facility], [place] [address] Scheduled Orders Name Type Priority Associated Diagnoses Orde r Schedule BASIC METABOLIC PANEL Lab Routine Stage 3b chronic kidney disease (HCC) Expected: 01/28/2024, Expires: 08/23/2024 PTH Lab Routine Stage 3b chronic kidney disease (HCC) Expected: 08/24/2023, Expires: 08/23/2024 Health Maintenance Due Date Last Done Comments COVID-19 Vaccine ( season) 2023 01/27/2023, 03/18/2022, 01/23/2021, Additional history exists Depression Screening 07/22/2023 07/21/2022 DTaP,Tdap,and Td Vaccines (2 - Td or Tdap) 09/08/2023 09/07/2013, 02/17/2010, 10/18/2001, Additional history exists DXA Scan 10/01/2023 09/30/2021, 0 07/2021, 09/25/2019, Additional history exists GFR 02/24/2024 08/24/2023, 040 10/2023, 02/04/2023, Additional history exists CKD HGB USE SMARTSET 53650 07/04/202407/04, 07/05/2023, 02/04/2023, Additional history exists CKD PHOS USE SMARTSET 89344 08/10/20241 07/2023, 08/25/2022, 06/26/2021, Additional history exists TSH 08/10/2024 08/11/2023, 0 10/2023, 02/04/2023, Additional history exists Albumin/Creatinine Ratio 08/11/2024 024, 08/26/2022, 06/30/2021, Additional history exists Zoster Vaccines Discontinued 02/10/2007 Pneumococcal Vaccine: 65+ Years Completed 07/20/2014, 01/30/2008, 10/16/1994 Influenza Vaccine (FLU shot) Completed 01/05/2023, 01/16/2022, 12/27/2020, Additional history exists VITAMIN D LEVEL ONCE IN A LIFETIME-USE SMARTSET# 35837 Completed 04/01/2023, 11/13/2022, 06/26/2021, Additional history exists GARDASIL-HPV IMMUNIZATION SERIES Aged Out No longer eligible based on patient's age to complete this topic MENINGOCOCCAL (MENACTRA/MENVEO) Aged Out No longer eligible based on patient's age to complete this topic documented as of this encounter Medical Devices Implanted Type Area Sound Editor Device Identifier Shelf Expiration Date Model / Serial / Lot Lens Intraoc 22.0 - [id number] - [id number] Implanted:Qty: 1 on 07/01/2021 by Gee Hagen MD at [facility] Right: Eye BAUSCH [employer] LOMB 02/25/2026 [id number] / [id number] / [id number] Lens Intraoc 19.5 - [id number] - [id number] Implanted:Qty: 1 on 07/15/2021 by Gee Hagen MD at OR [facility] Left: Eye BAUSCH & LOMB 02/25/2026 [id number] / [id number] / documented as of this encounter Visit Diagnoses Diagnosis Stage 3b chronic kidney disease (HCC)- Primary HTN, goal below 140/90 Unspecified essential hypertension Renal artery aneurysm (HCC) Aneurysm of renal artery documented in this encounter Care Teams Human Resources Clerk Relationship Specialty Start Date End Date Phil Maldonado MD 200 [facility] [address] PCP - General Internal Medicine 06/19/19 documented as of this encounter"
--- OUTSIDE RECORDS SUMMARY | 2024-01-02 15:38 | External Medical Summary | Summary of Care ---
Author Name Unknown Organization [facility] Address [address] [place] [address] Phone [phone] Care Team Providers Care C Java Developer Name Role Phone Phil Maldonado MD Primary Care Provider + Reason for Visit * Reason Onset Date Comments Medication Refill 09/02/2023 Michel valencia [id number] Encounter Details Date Type Department Care Team (Late st Contact Info) Description 09/02/2023 [facility]ill [facility] [address] [place] [id number] Stanley Martin MD [address] [place] [facility] [place] [address] Allergies Active Allergy Reactions Criticality Noted Date Comments Azithromycin Anaphylaxis High 08/11/2023 Sulfa Antibiotics Hives 10/29/1998 documented as of this encounter (statuses as of 09/02/2023) Medications Medication Sig Dispensed Refills Start Date [...] Additional Information Patient taking differently:75 mcg Oral [id number], AT LEAST 30 MINUTES PRIOR TO BREAKFAST OR OTHER MEDS,Indications: Hypothyroidism, Reported on 05/26/2023 Azelastine HCl 0.1 % Nasal Solution (Astelin) Administer 2 Sprays into nostril in the morning and 2 Sprays before bedtime. 90 mL 3 3 Active Additional Information Patient taking differently:2 [place] NasalBID PRN, Rhinitis, Indications: Allergic Rhinitis, Reported [...] 3 Active Additional Information Patient taking differently:2 [place] Each Nostril Daily(AM),Indications: Allergic Rhinitis, Reported on [...] on 05/26/2023 LORazepam 1 MG Oral Tablet (Ativan)Indications :ETTA (generalized anxiety disorder) Take 1 Tablet (1 mg) by mouth 3 times a day as needed for Anxiety. 30 Tablet 4 Active Lisinopril-hydroCHL OROthiazide 20-12.5 MG Oral TabletIndications:H ypertension [...] the morning. 60 Blister Dosing Unit 4 09/02/19 24 Discontinu ed(Refill) Hospital, Clinic, or Other Facility Administered Medication Ordered Dose Route Frequency Start Date End Date Status Denosumab (Prolia) subcut inj 60 mgIndications:Senile osteoporosis 60 mg SC [id number] 03/04/2023 02/27/2024 Active documented as of this encounter (statuses as of 09/02/2023) Active Problems Problem Noted Date Diagnosed Date [...] as of this encounter (statuses as of 09/02/2023) Resolved Problems Problem Noted Date Diagnosed Date [...] as of this encounter (statuses as of 09/02/2023) Immunizations Name Administration Dates Next Due COVID-19 [...] Telephone Encounter - Stanley Martin MD - 09/02/2023 2:14 PM EDT Signed Prescriptions: Disp Refills Trelegy Ellipta 100-62.5-25 MCG/ACT Aeroso*60 Bli*0 Sig: Inhale 1 Puff by mouth in the morning.Authorizing Provider: STANLEY MARTIN documented in this encounter Plan of Treatment Upcoming Encounters Date Type Department Care Team (Late st Contact Info) Description 09/06/2023 1:00 PM EDT Anticoagulation Pharmacy, [facility] [address] [place] [address] Pharmacist2, [facility] [address] [place] [address] 09/13/2023 2:30 PM EDT Nurse Only Rheumatology [address] [place] [address] Pf, Nurse Rheum [address] [place] [address] [place] [address] 09/22/2023 10:00 AM EDT Imaging Radiology [address] [facility] [place] [address] 09/22/2023 12:00 PM EDT Office Visit Pulmonary Medicine, [facility] [address] [facility] [place] [address] Stanley Martin [facility] [address] [facility] [address] 10/04/2023 11:00 AM EDT Imaging Radiology, [address] [place], [place] [address] 10/04/2023 1:30 PM EDT Office Visit Allergy/Immunology [facility] [address] [place] [address] Felisa Garcia PA-C [address] [place] [address] 02/22/2024 11:15 AM EST Office Visit Dermatology [facility] 200 [facility] [place] [address] Phil Perez MD 200 [facility] [place] [address] 03/09/2024 2:40 PM EST Office Visit General Internal Medicine [facility] 200 [facility] [place] [address] Phil Maldonado MD 200 [place] [address] 03/15/2024 10:20 AM EST Office Visit Rheumatology [place] [address] [employer] [place], [place] [address] Tristan Richards MD [facility] [employer] [place], [place] [address] 04/07/2024 11:30 AM EST Office Visit Nephrology, [facility] 200 [facility] [place] [address] Gena Walton PA-C 200 [facility] [place] [address] Health Maintenance Due Date Last Done Comments COVID-19 Vaccine (2022- season) 2023 01/27/2023, 03/18/2022, 01/23/2021, Additional history exists Depression Screening 07/22/2023 07/21/2022 DTaP,Tdap,and Td Vaccines (2 - Td or Tdap) 09/08/2023 09/07/2013, 02/17/2010, 10/18/2001, Additional history exists DXA Scan 10/01/2023 09/30/2021, 0 07/2021, 09/25/2019, Additional history exists GFR 02/24/2024 08/24/2023, 0 10/2023, 02/04/2023, Additional history exists CKD HGB USE SMARTSET 38764 07/04/202407/04, 07/05/2023, 02/04/2023, Additional history exists CKD PHOS USE SMARTSET 54481 08/10/2024 0507/2023, 08/25/2022, 06/26/2021, Additional history exists TSH 08/10/2024 08/11/2023, 04/0 10/2023, 02/04/2023, Additional history exists Albumin/Creatinine Ratio 08/11/2024 024, 08/26/2022, 06/30/2021, Additional history exists Zoster Vaccines Discontinued 02/10/2007 Pneumococcal Vaccine: 65+ Years Completed 07/20/2014, 01/30/2008, 10/16/1994 Influenza Vaccine (FLU shot) Completed 01/05/2023, 01/16/2022, 12/27/2020, Additional history exists VITAMIN D LEVEL ONCE IN A LIFETIME-USE SMARTSET# 32855 Completed 08/24/2023, 04/01/2023, 11/13/2022, Additional history exists GARDASIL-HPV IMMUNIZATION SERIES Aged Out No longer eligible based on patient's age to complete this topic MENINGOCOCCAL (MENACTRA/MENVEO) Aged Out No longer eligible based on patient's age to complete this topic documented as of this encounter Medical Devices Implanted Type Area Technician Anatomic Pathology Device Identifier Shelf Expiration Date Model / Serial / Lot Lens Intraoc 22.0 - [id number] - [id number] Implanted:Qty: 1 on 07/01/2021 by Gee Hagen MD at OR [facility] Right: Eye [employer]CH [employer]OMB 02/25/2026 [id number] / [id number] / [id number] Lens Intraoc 19.5 - [id number] - [id number] Implanted:Qty: 1 on 07/15/2021 by Gee Hagen MD at OR [facility] Left: Eye BAUSCH & LOMB 02/25/2026 [id number] / [id number] / documented as of this encounter Care Teams C Java Developer Relationship Specialty Start Date End Date Phil Maldonado MD 200 [place] [address] PCP - General Internal Medicine 06/19/19 documented as of this encounter
--- OUTSIDE RECORDS SUMMARY | 2024-01-02 15:39 | External Medical Summary | Summary of Care ---
Author Name Unknown Organization [facility] Address [address] [place] [address] Phone [phone] Care Team Providers Care Enzyme Chemist Name Role Phone Phil Maldonado MD Primary Care Provider + Reason for Visit * Reason Onset Date Comments Remote Patient Monitoring Alert 07/19/2023 Encounter Details Date Type Department Care Team (Late st Contact Info) Description 07/19/2023 Home Monitoring Care Coordination [address], [place] [id number] HepShruti cash LPN HTN, goal below 130/80*; Hypertensive kidney disease with stage 3a chronic kidney disease; Essential hypertension with goal blood pressure less than 140/90 Allergies Active Allergy Reactions Criticality Noted Date Comments Sulfa Antibiotics Hives 10/29/1998 documented as of this encounter (statuses as of 07/19/2023) Medications Medication Sig Dispensed Refills Start Date [...] 30-600 MG Oral Tablet Extended Release 12 HourIndications:Financial Coach giuliana Cough Take 1 Tablet by mouth [...] Additional Information Patient taking differently:75 mcg Oral [id number], AT LEAST 30 MINUTES PRIOR TO BREAKFAST OR OTHER MEDS,Indications: Hypothyroidism, Reported on 05/26/2023 Azelastine HCl 0.1 % Nasal Solution (Astelin) Administer 2 Sprays into nostril in the morning and 2 Sprays before bedtime. 90 mL 3 3 Active Additional Information Patient taking differently:2 [place] NasalBID PRN, Rhinitis, Indications: Allergic Rhinitis, Reported [...] 3 Active Additional Information Patient taking differently:2 [place] Each Nostril Daily(AM),Indications: Allergic Rhinitis, Reported on 05/26/2023 Omeprazole 40 MG Oral Capsule Delayed Release (PriLOSEC)Indication s:Heartburn Take 1 Capsule by mouth daily as needed for Heartburn. 0 3 Active PARoxetine HCl 30 MG Oral Tablet (Paxil)Indications:G eneralized anxiety disorder TAKE 1 TABLET BY MOUTH ONCE DAILY IN THE MORNING 90 Tablet 1 3 Active Additional Information Patient taking differently: Indications: Anxiety, Reported on 05/26/2023 Metoprolol Succinate ER 25 MG Oral Tablet Extended Release 24 Hour (toPROL XL)Indications:Essen tial hypertension with goal blood pressure less than 140/90 TAKE 1/2 TABLET EVERY MORNING 45 Tablet 1 3 Active Additional Information Patient taking differently: Indications: Hypertension, Reported on 05/26/2023 Montelukast Sodium 10 MG Oral Tablet (Singulair)Indicatio ns:Asthma Take 1 Tablet by mouth at bedtime. 90 Tablet 1 3 Active Levocetirizine Dihydrochloride 5 MG Oral Tablet TAKE 1/2 TABLET BY MOUTH EVERY OTHER DAY 15 Tablet 5 3 Active Additional Information Patient taking differently:, TAKE 1/2 TABLET BY MOUTH EVERY OTHER DAY,Indications: Allergic Rhinitis, Reported on 05/26/2023 Allopurinol 100 MG Oral Tablet (Zyloprim) TAKE TWO TABLETS BY MOUTH EVERY MORNING 180 Tablet 3 3 Active Additional Information Patient taking differently: 200 mg Oral Daily(AM), (No instructions reported), Indications: Gout Prophylaxis, Reported on 05/26/2023 Spironolactone 25 MG Oral Tablet (Aldactone) TAKE 1 TABLET BY MOUTH ONCE DAILY IN THE MORNING 30 Tablet 6 3 Active Additional Information Patient taking differently:, TAKE 1 TABLET BY MOUTH ONCE DAILY IN THE MORNING,Indications: Hypertension, Reported on 05/26/2023 Trelegy Ellipta 100-62.5-25 MCG/ACT Aerosol Powder Breath Activated (Fluticasone-Umeclid inium-Vilanterol) Inhale 1 Puff by mouth in the morning. 60 Blister Dosing Unit 0 4 07/21/19 24 Active LORazepam 1 MG Oral Tablet (Ativan)Indications: ETTA (generalized anxiety disorder) Take 1 Tablet (1 mg) by mouth 3 times a day as needed for Anxiety. 30 Tablet 0 4 Active Lisinopril-hydroCHLO ROthiazide 20-12.5 MG Oral TabletIndications:Hy pertension Take 2 Tablets by mouth in the morning. 180 Tablet 1 4 Active methylPREDNISolone 4 MG Oral Tablet Therapy Pack (Medrol Dosepack) follow package directions 21 Tablet 0 4 Active Hospital, Clinic, or Other Facility Administered Medication Ordered Dose Route Frequency Start Date End Date Status Denosumab (Prolia) subcut inj 60 mgIndications:Senile osteoporosis 60 mg SC [id number] 03/04/2023 02/27/2024 Active documented as of this encounter (statuses as of 07/19/2023) Active Problems Problem Noted Date Diagnosed Date Class 1 obesity due to exces s calories with serious comorbidity and body mass index (BMI) of 31.0 to 31.9 in adult 07/05/2023 Mild persistent asthma without complication 10/2023 Chronic cough 04/05/2023 Nonallergic rhinitis 04/05/2023 Nasal septal perforation 04/05/2023 Mild aortic regurgitation 03/04/2023 Essential tremor 12/16/2022 History of TIA (transient ischemic attack) 12/16 Gastro-esophageal reflux disease without esophag itis 10/10/2021 Chronic kidney disease, stage 3a 08/06/2020 Overview: Per CKD protocol 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 06/21/2020 Hypertensive kidney disease with stage 3a chronic kidney disease 02/05/2020 Overview: Per CKD protocol Aneurysm artery, renal 08/03/2019 Overview: LEFT CT [...] as of this encounter (statuses as of 07/19/2023) Resolved Problems Problem Noted Date Diagnosed Date Resolved Date Memory changes 12/16/2022 01/28/2023 ETTA (generalized anxiety disorder) 06/19/2019 06/19/2019 Pulmonary [...] as of this encounter (statuses as of 07/19/2023) Immunizations Name Administration Dates Next Due COVID-19 mRNA, LNP-s, No Pre serve, 2-Dose Series (Moderna) 01/23/2021,05/13/2020,04/15/2020 COVID-19, MRNA-LNP, 23-24, P F, 50 MCG/0.5 mL, 12 YRS AND ABOVE, IM (MODERNA-Spikevax) 01/27/2023 Diptheria/Tetanus (Adult) 02/27/1992 HEP A - Hepatitis [...] Progress Notes * Pancho Perez [facility] - 07/19/2023 9:37 AM EDT BP averaging just above goal 131/66. No changes at this time. Will consider adjustments if BP average still elevated in the next 2 weeks. Systolic Diastolic HR 139 78 72 145 60 70 121 54 75 133 84 72 151 62 76 112 58 73 114 63 75 Systolic Diastolic HR Average 131 66 73 Hi 151 84 76 Lo 112 54 70 Range 39 30 6 Pancho Perez, PharmD, BCACP, [facility] Clinical Pharmacist 07/19/2023, 9:38 AM * Shruti Portillo LPN - 07/19/2023 8:09 AM EDT Horacio Yeung [id number] Horacio Yeung is currently participating in the [employer] Hypertension Management Program and had a reading on 07/17/2023 of 139/78. Pt has alerted for an Average BP over 7 days > 130/80 . Parameters are currently set as follows: Average BP over 7 days > 130/80 Singular Systolic BP Reading < 90 or > 180 Singular Diastolic BP Reading <50 or > 120 Patient is not reporting new symptoms or [...] Care Team (Late st Contact Info) Description 07/28/2023 2:00 PM EDT Anticoagulation Pharmacy, [facility] [address] [facility] [place] [address] Pharmacist2, [facility] [address] [facility] [place] [address] 08/11/2023 10:40 AM EDT Office Visit General Internal Medicine [facility] [address] [facility] [place] [address] Phil Maldonado MD [address] [facility] [place] [address] 09/13/2023 2:30 PM EDT Nurse Only Rheumatology [place] [id number] [place] [id number] Pf, Nurse Rheum [address] [place] [address] 09/22/2023 10:00 AM EDT Imaging Radiology [facility] [address] [facility] [address] [facility] [place] [address] 09/22/2023 12:00 PM EDT Office Visit Pulmonary Medicine, [facility] [address] [facility] [place] [address] Stanley Chavez MD [address] [facility] [place] [address] 10/04/2023 11:00 AM EDT Imaging Radiology, [place] [id number] [place] [address] 10/04/2023 1:30 PM EDT Office Visit Allergy/Immunology [facility] [address] [place] [address] Felisa Garcia PA-C [address] [facility] [place] [address] 10/19/2023 10:30 AM EDT Office Visit Nephrology, [facility] [address] [facility] [place] [address] Gena Walton PAJereC [address] [facility] [place] [address] 02/22/2024 11:15 AM EST Office Visit Dermatology [facility] [address] [facility] [place] [facility] [place] [address] [place] [address] Phil Perez MD [address] [facility] [place], [place] [address] 03/15/2024 10:20 AM EST Office Visit Rheumatology [place] [id number] [place], [place] [address] Tristan Richards MD [facility] [place] [address] Health Maintenance Due Date Last Done Comments Depression Screening 07/22/2023 07/21/2022 CKD PHOS USE SMARTSET 24865 08/26/202307/29, 06/26/2021, 10/21/2020, Additional history exists Albumin/Creatinine Ratio 08/27/2023 023, 06/30/2021, 03/11/2017, Additional history exists DTaP,Tdap,and Td Vaccines (2 - Td or Tdap) 09/08/2023 09/07/2013, 02/17/2010, 10/18/2001, Additional history exists DXA Scan 10/01/2023 09/30/2021, 0 07/2021, 09/25/2019, Additional history exists GFR 01/04/2024 07/05/2023, 0 11/2022, 01/05/2023, Additional history exists CKD HGB USE SMARTSET 21642 07/04/202407/04, 07/05/2023, 02/04/2023, Additional history exists TSH 07/04/2024 07/05/2023, 0 11/2022, 10/15/2022, Additional history exists Zoster Vaccines Discontinued 02/10/2007 Pneumococcal Vaccine: 65+ Years Completed 07/20/2014, 01/30/2008, 10/16/1994 Influenza Vaccine (FLU shot) Completed 01/05/2023, 01/16/2022, 12/27/2020, Additional history exists COVID-19 Vaccine Completed 01/27/2023, , 05/13/2020, Additional history exists VITAMIN D LEVEL ONCE IN A LIFETIME-USE SMARTSET# [id number] Completed 04/01/2023, 11/13/2022, 06/26/2021, Additional history exists GARDASIL-HPV IMMUNIZATION SERIES Aged Out No longer eligible based on patient's age to complete this topic MENINGOCOCCAL (MENACTRA/MENVEO) Aged Out No longer eligible based on patient's age to complete this topic documented as of this encounter Medical Devices Implanted Type Area Screen Printing Supervisor Device Identifier Shelf Expiration Date Model / Serial / Lot Lens Intraoc 22.0 - [id number] - [id number] Implanted:Qty: 1 on 07/01/2021 by Gee Hagen MD at [facility] Right: Eye [employer] 02/25/2026 [id number] / [id number] / [id number] Lens Intraoc 19.5 - [id number] - [id number] Implanted:Qty: 1 on 07/15/2021 by Gee Hagen MD at OR [facility] Left: Eye [employer] 02/25/2026 [id number] / [id number] / documented as of this encounter Visit Diagnoses Diagnosis HTN, goal below 130/80- Primary Unspecified essential hypertension Hypertensive kidney disease with stage 3a chronic kidney disease Essential hypertension with goal blood pressure less than 140/90 documented in this encounter Care Teams Enzyme Chemist Relationship Specialty Start Date End Date Phil Maldonado MD [address] [place] [address] PCP - General Internal Medicine 06/19/19 documented as of this encounter
--- OUTSIDE RECORDS SUMMARY | 2024-01-02 15:39 | External Medical Summary | Summary of Care ---
Author Name Unknown Organization [facility] Address [address] [place] [address] Phone [phone] Care Team Providers Care Senior Water Resources Engineer Name Role Phone Phil Maldonado MD Primary Care Provider + Reason for Visit * Reason Comments Follow Up Encounter Details Date Type Department Care Team (Late st Contact Info) Description 08/11/2023 10:40 AM EDT Office Visit General Internal Medicine [facility] [address] [place] [address] Phil Maldonado MD [address] [place] [address] Essential hypertension with goal blood pressure less than 140/90*; Dyslipidemia, goal LDL below 100; Generalized anxiety disorder; Chronic cough; Hypertensive kidney disease with stage 3b chronic kidney disease (HCC); Hypothyroidism due to acquired atrophy of thyroid; Aneurysm artery, renal (HCC); Moderate persistent asthma without complication; Age-related osteoporosis without current pathological fracture Allergies Active Allergy Reactions Criticality Noted Date Comments Azithromycin Anaphylaxis High 08/11/2023 Sulfa Antibiotics Hives 10/29/1998 documented as of this encounter (statuses as of 08/11/2023) Medications Medication Sig Dispensed Refills Start Date [...] skin every 6 months. 1 Each 0 02/06/20 20 Active Acetaminophen 500 MG Oral Tablet (Tylenol)Indicatio ns:Neck pain,Chronic right shoulder pain Take 2 Tablets by mouth every 12 hours as needed for Pain, Mild. 100 Tab 0 10/05/19 21 Active Dicyclomine HCl 10 MG [...] 8 ounces of water or juice. 0 04/20/19 23 Active Albuterol Sulfate (2.5 MG/3ML) 0.083% Inhalation Nebulization Solution (Proventil)Indicat ions:Moderate persistent asthma without complication Inhale 1 Vial via nebulizer every 6 hours as needed for Wheezing. 360 mL 11 05/07/19 23 Active Additional Information Patient taking differently:1 Vial Nebulizer Q6H PRN, Wheezing,Indications: Asthma, Reported on 05/26/2023 Vitamin D3 25 MCG (1000 UT) Oral CapsuleIndications :Nutritional Support 0 05/12/19 23 Active Famotidine 20 MG Oral [...] Additional Information Patient taking differently:75 mcg Oral [id number], AT LEAST 30 MINUTES PRIOR TO BREAKFAST OR OTHER MEDS,Indications: Hypothyroidism, Reported on 05/26/2023 Azelastine HCl 0.1 % Nasal Solution (Astelin) Administer 2 Sprays into nostril in the morning and 2 Sprays before bedtime. 90 mL 3 01/15/20 Active Additional Information Patient taking differently:2 Foley NasalBID PRN, Rhinitis, Indications: Allergic Rhinitis, Reported [...] 02/10/20 Active Additional Information Patient taking differently:2 Foley Each Nostril Daily(AM),Indications: Allergic Rhinitis, Reported on 05/26/2023 Omeprazole 40 MG Oral Capsule Delayed Release (PriLOSEC)Indicati ons:Heartburn Take 1 Capsule by mouth daily as needed for Heartburn. 0 01/21/20 Active Levocetirizine Dihydrochloride 5 MG Oral [...] on 05/26/2023 LORazepam 1 MG Oral Tablet (Ativan)Indication s:ETTA (generalized anxiety disorder) Take 1 Tablet (1 mg) by mouth 3 times a day as needed for Anxiety. 30 Tablet 0 07/08/19 24 Active Lisinopril-hydroCH LOROthiazide 20-12.5 MG Oral TabletIndications: Hypertension [...] BEDTIME 90 Tablet 1 08/04/19 24 Active Trelegy Ellipta 100-62.5-25 MCG/ACT Aerosol Powder Breath Activated (Fluticasone-Umecl idinium-Vilanterol ) Inhale 1 Puff by mouth in the morning. 60 Blister Dosing Unit 0 08/05/19 24 Active Allopurinol 100 MG Oral Tablet (Zyloprim)Indicati ons:Gout Prophylaxis Take 2 Tablets by mouth in the morning. 0 08/11/19 24 Active Allopurinol 100 MG Oral Tablet (Zyloprim) TAKE TWO TABLETS BY MOUTH EVERY MORNING 180 Tablet 3 03/19/20 23 024 Discontinued(Re fill) Nitrofurantoin Monohyd Macro 100 MG Oral Capsule (Macrobid) Take 1 Capsule by mouth in the morning and 1 Capsule before bedtime. Do all this for 5 days. With food until gone. 10 Capsule 0 07/05/19 24 024 Discontinued(Govind vazquez preference/disc ontinuation) Azithromycin 500 MG Oral Tablet (Zithromax) Take 1 Tablet by mouth in the morning for 5 days. Take each dose with meal.. 5 Tablet 0 07/12/19 24 024 Discontinued(Ad verse reaction) methylPREDNISolone 4 MG Oral Tablet Therapy Pack (Medrol Dosepack) follow package directions 21 Tablet 0 07/12/19 24 024 Discontinued Hospital, Clinic, or Other Facility Administered Medication Ordered Dose Route Frequency Start Date End Date Status Denosumab (Prolia) subcut inj 60 mgIndications:Senile osteoporosis 60 mg SC [id number] 03/04/2023 02/27/2024 Active documented as of this encounter (statuses as of 08/11/2023) Active Problems Problem Noted Date Diagnosed Date [...] as of this encounter (statuses as of 08/11/2023) Resolved Problems Problem Noted Date Diagnosed Date [...] as of this encounter (statuses as of 08/11/2023) Immunizations Name Administration Dates Next Due COVID-19 [...] Sign Reading Time Taken Comments Blood Pressure 120/56 08/11/2023 10:47 AM EDT Pulse 87 08/11/2023 10:47 AM EDT Temperature 36.7 C (98.1 F) 08/11/2023 10:47 AM E DT Respiratory Rate 16 08/11/2023 10:47 AM EDT Oxygen Saturation 97% 08/11/2023 10:47 AM EDT Inhaled Oxygen Concentration - - Weight 84.9 kg (187 lb 3.2 oz) 08/11/2023 10:47 AM EDT Height 165.1 cm (5' 5") 08/11/2023 10:47 AM EDT Body Mass Index 31.15 08/11/2023 10:47 AM EDT documented in this encounter Progress Notes * Phil Mladonado MD - 08/11/2023 11:09 AM EDT Chief Complaint Patient presents with Follow Up SUBJECTIVE: Horacio Yeung is a 83 year old female with PMH as below who presents for f/u chronic cough, htn, lipids, ckd 3. No cp, pressure, and cough is markedly improved, likes flutter valves. Still some ramos ondays, usually when weather rainy/humid, but overall better and no cp pressure or palpitations, moodis good. Sees nephrology soon and getting labs today for ckd Patient Active Problem List Diagnosis Code Chronic rhinitis J31.0 Essential hypertension with goal blood pressure less than 140/90 I10 IDIO PROG POLYNEUROPATHY G60.3 Dyslipidemia, goal LDL below 100 E78.5 Vocal cord dysfunction J38.3 Irritable bowel syndrome with diarrhea K58.0 Hypothyroidism due to acquired atrophy of thyroid E03.4 History of pulmonary embolism Z86.711 Generalized anxiety disorder F41.1 Moderate persistent asthma without complication J45.40 Age-related osteoporosis without current pathological fracture M81.0 Lung nodules R91.8 Aneurysm artery, renal (HCC) I72.2 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.3720 Gastro-esophageal reflux disease without esophagitis K21.9 Essential tremor G25.0 History of TIA (transient ischemic attack) Z86.73 Mild aortic regurgitation I35.1 Chronic cough R05.3 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 Nasal septal perforation J34.89 Class 1 obesity due to excess calories with serious comorbidity and body mass index (BMI) of 31.0 to 31.9 in adult E66.09, Z68.31 Hypertensive kidney disease with stage 3b chronic kidney disease (HCC) I12.9, N18.32 Chronic kidney disease, stage 3b (HCC) N18.32 Current Outpatient Medications Medication Sig Dispense Refill [...] MOUTH EVERY OTHER DAY) 15 Tablet 5 Allopurinol 100 MG Oral Tablet (Zyloprim) TAKE TWO TABLETS BY MOUTH EVERY MORNING (Patient taking differently: Take 2 Tablets by mouth in the morning.) 180 Tablet 3 Spironolactone 25 MG Oral Tablet (Aldactone) TAKE [...] Ellipta 100-62.5-25 MCG/ACT Aerosol Powder Breath Activated (Dynixlzhkjq-Steohuqhfodm-Qwvvcqwooc) Inhale 1 Puff by mouth in the morning. 60 Blister Dosing Unit 0 Current Facility-Administered Medications Medication Dose Route Frequency Provider Last Rate Last Admin Denosumab (Prolia) subcut inj 60 mg 60 mg Subcutaneous Q6 Months Alejandrina Torres CRNP 60 mg at 03/11/23 1359 Review of patient's allergies indicates: Allergen Reactions Azithromycin Anaphylaxis Sulfa Antibiotics Hives Health Maintenance Due Topic Date Due Depression Screening 07/22/2023 CKD PHOS USE SMARTSET 25310 08/26/2023 Albumin/Creatinine Ratio 08/27/2023 ROS: CONSTITUTIONAL: No weakness, No fatigue, and No fevers, sweats, or chills EYE: No recent significant change in vision, No eye pain, redness, discharge, and No diplopia PULMONARY: No wheezing and No recent change in breathing CARDIOVASCULAR: No chest pain, No orthopnea, No paroxysmal nocturnal dyspnea, No edema, No palpitations, and No syncope GASTROINTESTINAL: No abdominal pain, No change in bowel habits, No significant heartburn, No significant change in appetite, No nausea, vomiting, diarrhea, or constipation, No hematemesis, No blood in stools or black tarry stools, No abdominal bloating or early satiety, and No dysphagia ALL OTHER SYSTEMS NEGATIVE I reviewed social, PMH, PSH, and family history and updated where needed. Social History Socioeconomic History Marital status: Spouse name: Not on file Number of children: Not on file Years of education: Not on file Highest education level: Not on file Occupational History Not on file Tobacco Use Smoking status: Never Smokeless tobacco: Never Vaping Use Vaping Use: Never used Substance and Sexual Activity Alcohol use: Yes [...] Never true Transportation Needs: Not on file Physical Activity: Not on file Stress: Not on file Social Connections: Not on file Intimate Partner Violence: Not on file Housing Stability: Not on file Past Medical History: Diagnosis Date Adjustment disorder [...] performed by Luis Mcdaniel MD at ENDOSCOPY [facility] EGD, FLEXIBLE, DIAGNOSTIC 07/11/2013 ESOPHAGOGASTRODUODENOSCOPY (EGD), FLEXIBLE, TRANSORAL, DIAGNOSTIC performed by Brandon Silva MD at ENDOSCOPY [facility] EGD, FLEXIBLE, DIAGNOSTIC 09/02/2022 sm hiatal hernia / ESOPHAGOGASTRODUODENOSCOPY (EGD), FLEXIBLE, TRANSORAL, DIAGNOSTIC performed by Rosy Alanis DO at ENDOSCOPY [facility] LIGATE/CUT OVIDUCT(S) 03/29/1983 Tubal Ligation NASAL ENDOSCOPY, DIAGNOSTIC 05/27/1993 Nasal Endoscopy,Dx NASAL ENDOSCOPY, DX W/SINUSOSCOPY Sinus Nasal/Maxill Endoscopy,Dx NASAL ENDOSCOPY, DX W/SINUSOSCOPY Sinus Nasal/Sphenoid Endoscopy,Dx REMOVE CATARACT, INSERT LENS PROSTH Right 07/01/2021 Right EXTRACAPSULAR CATARACT REMOVAL WITH INTRAOCULAR LENS performed by Gee Hagen MD at [facility] REMOVE CATARACT, INSERT LENS PROSTH Left 07/15/2021 Left EXTRACAPSULAR CATARACT REMOVAL WITH INTRAOCULAR LENS performed by Gee Hagen MD at [facility] REMOVE GALLBLADDER 03/29/2000 REMOVE TONSILS & ADENOIDS, UNDER 12 Tonsillectomy/Adenoids,<12 Y/O Family History Problem Relation Age of Onset Stroke Mother 83 Other (blood clots post ?) Mother Mental Disorder Father depression Hypertension Father Other ( at of CVA) Sister Other (covid) Daughter Stroke Aunt (Unspecified) Stroke Aunt (Unspecified) Stroke Uncle (Unspecified) Neurological Disorder Uncle (Unspecified) parkinson's Lung Disorder Grandfather (Maternal) pneumonia in 1920's Stroke Grandmother (Paternal) Stroke Grandfather (Paternal) OBJECTIVE: PHYSICAL EXAM: BP 120/56 | Pulse 87 | Temp 36.7 C (98.1 F) (Tympanic) | Resp 16 | Ht 1.651 m (5' 5") | Wt 84.9kg (187 lb 3.2 oz) | SpO2 97% | BMI 31.15 kg/m | BSA 1.97 m General: alert, healthy, and no distress Head: Normocephalic, No masses, lesions, tenderness or abnormalities Eye Exam: conjunctiva are pink and non-injected, sclera clear Heart: regular rate & rhythm, no murmur, no gallops, PMI non-displaced, S-1 normal, and S-2 normal Lungs: normal respiratory rate and rhythm, lungs clear to auscultation Psych: normal affect, no flight of ideas or tangential thought, good eye contact, no pressured speech 06/21/23 pulm: Recurrent bronchitis with history of sick contacts: High risk for postinfectious cough Complete Z-Dirk Complete prednisone taper Repeat CT scan chest in 3 months Moderate persistent asthma with recent flare Switch Breo to Trelegy and continue with rescue albuterol Spirometry [...] PCP Chronic rhinitis Continue Xyzal and Singulair Recurrent Bronchitis Probable post infectious cough Frequesnt traveller ([place], [place]) Sick contacts in [place] PE, on coumadin Reactive Airways Disease UACS GERD Pulm Nodules Plan: Switch Breo to trelegy Complete Z pack Complete prednisone taper C/w Rescue Albuterol C/w Omeprazole and Cetirizine C/w Coumadin for PE CT Chest in 3 month f/u at [facility] F/u 3 months 01/2023 echo: The qualitative LV ejection fraction is 60-64% (normal). The left ventricular diastolic function is mildly abnormal (grade I). The aortic valve has three leaflets. Moderate aortic valve sclerosis is present. Aortic stenosis is absent. Mild aortic valve regurgitation is present. Significant tricuspid regurgitation is absent. The spectral Doppler signal is inadequate to calculate right ventricular and pulmnary artery systolic pressure.. ASSESSMENT: I10 Essential hypertension with goal blood pressure less than 140/90 (primary encounter diagnosis) E78.5 Dyslipidemia, goal LDL below 100 F41.1 Generalized anxiety disorder R05.3 Chronic cough I12.9,N18.32 Hypertensive kidney disease with stage 3b chronic kidney disease (HCC) E03.4 Hypothyroidism due to acquired atrophy of thyroid I72.2 Aneurysm artery, renal (HCC) J45.40 Moderate persistent asthma without complication M81.0 Age-related osteoporosis without current pathological fracture PLAN: Essential hypertension with goal blood pressure less than 140/90 (Primary) Cont metoprolol, lisinopril, hctz, aldactone Dyslipidemia, goal LDL below 100 - HEPATIC FUNCTION PANEL; Future; Expected date: 09/11/2023 Cont pravstatin Generalized anxiety disorder Cont paroxetine Chronic cough Seems better! Appreciate pulm aid Cont trelegy Cont flutter valve Hypertensive kidney disease with stage 3b chronic kidney disease (HCC) - PHOSPHORUS; Future; Expected date: 08/11/2023 - ALBUMIN / CREATININE RATIO, URINE; Future; Expected date: 08/11/2023 Await labs Hypothyroidism due to acquired atrophy of thyroid - TSH WITH FREE T4 IF INDICATED; Future; Expected date: 08/11/2023 Recheck tsh Cont levothyroxine Aneurysm artery, renal (HCC) T/c ct in fall Moderate persistent asthma without complication Cont inhalers Age-related osteoporosis without current pathological fracture Dexa scheduled Sees hiroc Follow Up: Return in about 6 months (around 02/11/2024), or if symptoms worsen or fail to improve, for Labs Today. | For: Labs Today Phil Maldonado MD documented in this encounter Nursing Notes * Karlee Lam LPN - 08/11/2023 10:46 AM EDT Patient presents today for a follow up. She has been sob off and on. She said that she has good days and bad days. documented in this encounter Plan of Treatment Upcoming Encounters Date Type Department Care Team (Late st Contact Info) Description 08/24/2023 2:30 PM EDT Office Visit Nephrology, [facility] [address] [facility] [place] [address] ZeGena hoffman PA-C [address] [facility] [place] [address] 09/06/2023 1:00 PM EDT Anticoagulation Pharmacy, [facility] [address] [facility] [place] [address] Pharmacist2, [facility] [address] [facility] [place] [address] 09/13/2023 2:30 PM EDT Nurse Only Rheumatology [place] [id number] [facility] [place] [address] Pf, Nurse [facility] [place] [address] 09/22/2023 10:00 AM EDT Imaging Radiology [address] [facility] [place] [address] 09/22/2023 12:00 PM EDT Office Visit Pulmonary Medicine, [facility] [address] [facility] [place] [address] Stanley Chavez MD [address] [place] [address] 10/04/2023 11:00 AM EDT Imaging Radiology, [address] [place], [place] [address] 10/04/2023 1:30 PM EDT Office Visit Allergy/Immunology [facility] [address] [facility] [place], [place] [address] Felisa Garcia PA-C [address] [facility] [place], [place] [address] 02/22/2024 11:15 AM EST Office Visit Dermatology [facility] [address] [facility] [place], [place] [address] Phil Perez MD [address] [facility] [place], [place] [address] 03/09/2024 2:40 PM EST Office Visit General Internal Medicine [facility] [address] [facility] [place], [place] [address] Phil Maldonado MD [address] [facility] [place], [place] [address] 03/15/2024 10:20 AM EST Office Visit Rheumatology [address] [place], [place] [address] rTistan Richards MD [address] [place] [address] [place], [place] [address] Pending Results Name Type Priority Associated Diagnoses Date /Time HEPATIC FUNCTION PANEL Lab Routine Dyslipidemia, goal LDL below 100 08/11/2023 11:15 AM EDT PHOSPHORUS Lab Routine Hypertensive kidney disease with stage 3b chronic kidney disease (HCC) 08/11/2023 11:15 AM EDT TSH WITH FREE T4 IF INDICATED Lab Routine Hypothyroidism due to acquired atrophy of thyroid 08/11/2023 11:15 AM EDT Scheduled Orders Name Type Priority Associated Diagnoses Orde r Schedule HEPATIC FUNCTION PANEL Lab Routine Dyslipidemia, goal LDL below 100 Expected: 09/11/2023 (Approximate), Expires: 08/10/2024 PHOSPHORUS Lab Routine Hypertensive kidney disease with stage 3b chronic kidney disease (HCC) Expected: 08/11/2023 (Approximate), Expires: 08/10/2024 ALBUMIN / CREATININE RATIO, URINE Lab Routine Hypertensive kidney disease with stage 3b chronic kidney disease (HCC) Expected: 08/11/2023 (Approximate), Expires: 08/10/2024 TSH WITH FREE T4 IF INDICATED Lab Routine Hypothyroidism due to acquired atrophy of thyroid Expected: 08/11/2023 (Approximate), Expires: 08/10/2024 Health Maintenance Due Date Last Done Comments Depression Screening 07/22/2023 07/21/2022 CKD PHOS USE SMARTSET 97501 08/26/2023 05, 06/26/2021, 10/21/2020, Additional history exists Albumin/Creatinine Ratio 08/27/2023 023, 06/30/2021, 03/11/2017, Additional history exists DTaP,Tdap,and Td Vaccines (2 - Td or Tdap) 09/08/2023 09/07/2013, 02/17/2010, 10/18/2001, Additional history exists DXA Scan 10/01/2023 09/30/2021, 07/0 07/2021, 09/25/2019, Additional history exists GFR 01/04/2024 07/05/2023, 11/0 11/2022, 01/05/2023, Additional history exists CKD HGB USE SMARTSET 26340 07/04/202407/04, 07/05/2023, 02/04/2023, Additional history exists TSH 07/04/2024 07/05/2023, 11/0 11/2022, 10/15/2022, Additional history exists Zoster Vaccines Discontinued 02/10/2007 Pneumococcal Vaccine: 65+ Years Completed 07/20/2014, 01/30/2008, 10/16/1994 Influenza Vaccine (FLU shot) Completed 01/05/2023, 01/16/2022, 12/27/2020, Additional history exists COVID-19 Vaccine Completed 01/27/2023, , 01/23/2021, Additional history exists VITAMIN D LEVEL ONCE IN A LIFETIME-USE SMARTSET# [id number] Completed 04/01/2023, 11/13/2022, 06/26/2021, Additional history exists GARDASIL-HPV IMMUNIZATION SERIES Aged Out No longer eligible based on patient's age to complete this topic MENINGOCOCCAL (MENACTRA/MENVEO) Aged Out No longer eligible based on patient's age to complete this topic documented as of this encounter Medical Devices Implanted Type Area Pull Worker Device Identifier Shelf Expiration Date Model / Serial / Lot Lens Intraoc 22.0 - [id number] - [id number] Implanted:Qty: 1 on 07/01/2021 by Gee Hagen MD at OR [facility] Right: Eye [employer] 02/25/2026 [id number] / [id number] / [id number] Lens Intraoc 19.5 - [id number] - [id number] Implanted:Qty: 1 on 07/15/2021 by Gee Hagen MD at OR [facility] Left: Eye [employer] 02/25/2026 [id number] / [id number] / documented as of this encounter Visit Diagnoses Diagnosis Essential hypertension with goal blood pressure less than 140/90- Primary Dyslipidemia, goal LDL below 100 Other and unspecified hyperlipidemia Generalized anxiety disorder Chronic cough Cough Hypertensive kidney disease with stage 3b chronic kidney disease (HCC) Hypothyroidism due to acquired atrophy of thyroid Aneurysm artery, renal (HCC) Aneurysm of renal artery Moderate persistent asthma without complication Unspecified asthma Age-related osteoporosis without current pathological fracture Senile osteoporosis documented in this encounter Care Teams Senior Water Resources Engineer Relationship Specialty Start Date End Date Phil Maldonado MD [address] [place] [address] PCP - General Internal Medicine 06/19/19 documented as of this encounter
--- OUTSIDE RECORDS SUMMARY | 2024-01-02 15:39 | External Medical Summary | Summary of Care ---
Author Name Unknown Organization [facility] Address [address] [place] [address] Phone [phone] Care Team Providers Care Production Planner Scheduler Name Role Phone Phil Maldonado MD Primary Care Provider + Reason for Visit * Reason Onset Date Comments Remote Patient Monitoring Alert 07/19/2023 Encounter Details Date Type Department Care Team (Late st Contact Info) Description 07/19/2023 Home Monitoring Care Coordination [address] [place], [place] [id number] HepShruti cash LPN HTN, goal below 130/80*; [...] MG Oral Tablet Extended Release 12 HourIndications:Director International giuliana Cough Take 1 Tablet by mouth [...] Additional Information Patient taking differently:75 mcg Oral [id number], AT LEAST 30 MINUTES PRIOR TO BREAKFAST OR OTHER MEDS,Indications: Hypothyroidism, Reported on 05/26/2023 Azelastine HCl 0.1 % Nasal Solution (Astelin) Administer 2 Sprays into nostril in the morning and 2 Sprays before bedtime. 90 mL 3 3 Active Additional Information Patient taking differently:2 [place] NasalBID PRN, Rhinitis, Indications: Allergic Rhinitis, Reported [...] 3 Active Additional Information Patient taking differently:2 [place] Each Nostril Daily(AM),Indications: Allergic Rhinitis, Reported on [...] inj 60 mgIndications:Senile osteoporosis 60 mg SC [id number] 03/04/2023 02/27/2024 Active documented as of this [...] Progress Notes * Pancho Perez [facility] - 07/19/2023 9:37 AM EDT BP averaging [...] 39 30 6 Pancho Perez, PharmD, BCACP, [facility] Clinical Pharmacist 07/19/2023, 9:38 AM * Shruti Portillo LPN - 07/19/2023 8:09 AM EDT Horacio Yeung [phone] Horacio Yeung is currently participating in the [...] Description 07/28/2023 2:00 PM EDT Anticoagulation Pharmacy, [facility] [address] [facility] [place] [address] Pharmacist2, [facility] [address] [facility] [place] [address] 08/11/2023 10:40 AM EDT Office Visit General Internal Medicine [facility] [address] [facility] [place] [address] Phil Maldonado MD [address] [facility] [place] [address] 09/13/2023 2:30 PM EDT Nurse Only Rheumatology [place] [phone] [place] [address] Pf, Nurse Rheum [address] [place] [address] 09/22/2023 10:00 AM EDT Imaging Radiology [facility] 1st [facility] [address] [facility] [place] [address] 09/22/2023 12:00 PM EDT Office Visit Pulmonary Medicine, [facility] [address] [facility] [place] [address] Stanley Chavez MD [address] [facility] [place] [address] 10/04/2023 11:00 AM EDT Imaging Radiology, [place] [address] [place] [address] 10/04/2023 1:30 PM EDT Office Visit Allergy/Immunology [facility] [address] [place] [address] Felisa Garcia PA-C [address] [facility] [place] [address] 10/19/2023 10:30 AM EDT Office Visit Nephrology, [facility] [address] [facility] [place] [address] Gena Walton PAJereC [address] [facility] [place] [address] 02/22/2024 11:15 AM EST Office Visit Dermatology [facility] [address] [facility] [place] [address] Phil Perez MD [address] [facility] [place], [place] [address] 03/15/2024 10:20 AM EST Office Visit Rheumatology [place] [address] [place], [place] [address] Tristan Richards MD [facility] [employer] [place] [address] Health Maintenance Due Date Last Done Comments Depression Screening 07/22/2023 07/21/2022 CKD PHOS USE SMARTSET 62499 08/26/202307/29, 06/26/2021, 10/21/2020, Additional history exists Albumin/Creatinine Ratio 08/27/2023 023, 06/30/2021, 03/11/2017, Additional history exists DTaP,Tdap,and Td Vaccines (2 - Td or Tdap) 09/08/2023 09/07/2013, 02/17/2010, 10/18/2001, Additional history exists DXA Scan 10/01/2023 09/30/2021, 0 07/2021, 09/25/2019, Additional history exists GFR 01/04/2024 07/05/2023, 0 11/2022, 01/05/2023, Additional history exists CKD HGB USE SMARTSET 93455 07/04/202407/04, 07/05/2023, 02/04/2023, Additional history exists TSH 07/04/2024 07/05/2023, 0 11/2022, 10/15/2022, Additional history exists Zoster Vaccines Discontinued 02/10/2007 Pneumococcal Vaccine: 65+ Years Completed 07/20/2014, 01/30/2008, 10/16/1994 Influenza Vaccine (FLU shot) Completed 01/05/2023, 01/16/2022, 12/27/2020, Additional history exists COVID-19 Vaccine Completed 01/27/2023, , 05/13/2020, Additional history exists VITAMIN D LEVEL ONCE IN A LIFETIME-USE SMARTSET# 73966 Completed 04/01/2023, 11/13/2022, 06/26/2021, Additional history exists GARDASIL-HPV IMMUNIZATION SERIES Aged Out No longer eligible based on patient's age to complete this topic MENINGOCOCCAL (MENACTRA/MENVEO) Aged Out No longer eligible based on patient's age to complete this topic documented as of this encounter Medical Devices Implanted Type Area Cosmetician Apprentice Device Identifier Shelf Expiration Date Model / Serial / Lot Lens Intraoc 22.0 - [id number] - [id number] Implanted:Qty: 1 on 07/01/2021 by Gee Hagen MD at OR [facility] Right: Eye [employer]CH [employer] LOMB 02/25/2026 [id number] / [id number] / [id number] Lens Intraoc 19.5 - [id number] - [id number] Implanted:Qty: 1 on 07/15/2021 by Gee Hagen MD at OR [facility] Left: Eye BAUSCH & LOMB 02/25/2026 [id number] / [id number] / documented as of this encounter Visit Diagnoses Diagnosis HTN, goal below 130/80- Primary Unspecified essential hypertension Hypertensive kidney disease with stage 3a chronic kidney disease Essential hypertension with goal blood pressure less than 140/90 documented in this encounter Care Teams Production Planner Scheduler Relationship Specialty Start Date End Date Phil Maldonado MD [address] [place] [address] PCP - General Internal Medicine 06/19/19 documented as of this encounter
--- OUTSIDE RECORDS SUMMARY | 2024-01-02 15:39 | External Medical Summary | Summary of Care ---
Author Name Unknown Organization [facility] Address [address] [place] [address] Phone [phone] Care Team Providers Care Assembly Line Supervisor Name Role Phone Phil Maldonado MD Primary Care Provider + Reason for Visit * Reason Onset Date Comments Medication Refill 08/05/2023 Michel valencia 100-62.5-25 Encounter Details Date Type Department Care Team (Late st Contact Info) Description 08/05/2023 Refill Pulmonary Medicine [facility] [address] [place] [facility] [place] [phone] Stanley Martin MD [address] [place], [place] [phone] Allergies Active Allergy Reactions Criticality Noted Date Comments Sulfa Antibiotics Hives 10/29/1998 documented as of this encounter (statuses as of 08/05/2023) Medications Medication Sig Dispensed Refills Start Date [...] MCG (1000 UT) Oral CapsuleIndications: Nutritional Support 0 3 Active Famotidine 20 MG [...] Additional Information Patient taking differently:75 mcg Oral [id number], AT LEAST 30 MINUTES PRIOR TO BREAKFAST OR OTHER MEDS,Indications: Hypothyroidism, Reported on 05/26/2023 Azelastine HCl 0.1 % Nasal Solution (Astelin) Administer 2 Sprays into nostril in the morning and 2 Sprays before bedtime. 90 mL 3 3 Active Additional Information Patient taking differently:2 [place] NasalBID PRN, Rhinitis, Indications: Allergic Rhinitis, Reported [...] 3 Active Additional Information Patient taking differently:2 [place] Each Nostril Daily(AM),Indications: Allergic Rhinitis, Reported on [...] for Anxiety. 30 Tablet 0 4 Active Lisinopril-hydroCHL OROthiazide 20-12.5 MG Oral TabletIndications:H ypertension Take 2 Tablets by mouth in the morning. 180 Tablet 1 4 Active methylPREDNISolone 4 MG Oral Tablet Therapy Pack (Medrol Dosepack) follow package directions 21 Tablet 0 4 Active PARoxetine HCl 30 MG Oral [...] 60 Blister Dosing Unit 0 4 Active Trelegy Ellipta 100-62.5-25 MCG/ACT Aerosol Powder Breath Activated (Fluticasone-Umecli dinium-Vilanterol) Inhale 1 Puff by mouth in the morning. 60 Blister Dosing Unit 0 4 08/05/19 24 Discontinu ed(Refill) Hospital, Clinic, or Other Facility Administered Medication Ordered Dose Route Frequency Start Date End Date Status Denosumab (Prolia) subcut inj 60 mgIndications:Senile osteoporosis 60 mg SC [id number] 03/04/2023 02/27/2024 Active documented as of this encounter (statuses as of 08/05/2023) Active Problems Problem Noted Date Diagnosed Date [...] as of this encounter (statuses as of 08/05/2023) Resolved Problems Problem Noted Date Diagnosed Date [...] as of this encounter (statuses as of 08/05/2023) Immunizations Name Administration Dates Next Due COVID-19 mRNA, LNP-s, No Pre serve, 2-Dose Series (Moderna) 01/23/2021,05/13/2020,04/15/2020 COVID-19, MRNA-LNP, 23-24, P F, 50 MCG/0.5 mL, 12 YRS AND ABOVE, IM (MODERNA-Spikevax) 01/27/2023 HEP A - Hepatitis A (Adult > [...] Telephone Encounter - Stanley Martin MD - 08/05/2023 12:18 PM EDT Signed Prescriptions: Disp Refills Trelegy Ellipta 100-62.5-25 MCG/ACT Aeroso*60 Bli*0 Sig: Inhale 1 Puff by mouth in the morning.Authorizing Provider: STANLEY MARTIN documented in this encounter Plan of Treatment Upcoming Encounters Date Type Department Care Team (Late st Contact Info) Description 08/11/2023 10:40 AM EDT Office Visit General Internal Medicine [facility] [address] [facility] [place], [place] [address] Phil Maldonado MD [address] [facility] [place] [address] 08/24/2023 2:30 PM EDT Office Visit Nephrology, [facility] [address] [facility] [place], [place] [address] ZeGena hoffman PA-C [address] [facility] [place] [address] 09/06/2023 1:00 PM EDT Anticoagulation Pharmacy, [facility] [address] [facility] [address] [place], [place] [address] Pharmacist2, [facility] [address] [facility] [place], [place] [address] 09/13/2023 2:30 PM EDT Nurse Only Rheumatology [place] [address] [place], [place] [address] Pf, Nurse Rheum [facility] [place] [address] 09/22/2023 10:00 AM EDT Imaging Radiology [facility] 1st [facility] [address] [facility] [place] [address] 09/22/2023 12:00 PM EDT Office Visit Pulmonary Medicine, [facility] [address] [facility] [place] [address] Stanley Martin MD [address] [place] [address] 10/04/2023 11:00 AM EDT Imaging Radiology, [facility] [address] [place] [address] 10/04/2023 1:30 PM EDT Office Visit Allergy/Immunology [facility] [address] [facility] [place], [place] [address] Felisa Garcia PA-C [address] [facility] [place] [address] 02/22/2024 11:15 AM EST Office Visit Dermatology [facility] [address] [facility] [place] [address] Phil Perez MD [address] [facility] [place] [address] 03/15/2024 10:20 AM EST Office Visit Rheumatology [place] [address] [employer] [place], [place] [address] Tristan Richards MD [facility] [employer] [place], [place] [address] Health Maintenance Due Date Last Done Comments Depression Screening 07/22/2023 07/21/2022 CKD PHOS USE SMARTSET 21856 08/26/202307/29, 06/26/2021, 10/21/2020, Additional history exists Albumin/Creatinine Ratio 08/27/2023 023, 06/30/2021, 03/11/2017, Additional history exists DTaP,Tdap,and Td Vaccines (2 - Td or Tdap) 09/08/2023 09/07/2013, 02/17/2010, 10/18/2001, Additional history exists DXA Scan 10/01/2023 09/30/2021, 07/2021, 09/25/2019, Additional history exists GFR 01/04/2024 07/05/2023, 11/2022, 01/05/2023, Additional history exists CKD HGB USE SMARTSET 28530 07/04/202407/04, 07/05/2023, 02/04/2023, Additional history exists TSH 07/04/2024 07/05/2023, 0 11/2022, 10/15/2022, Additional history exists Zoster Vaccines Discontinued 02/10/2007 Pneumococcal Vaccine: 65+ Years Completed 07/20/2014, 01/30/2008, 10/16/1994 Influenza Vaccine (FLU shot) Completed 01/05/2023, 01/16/2022, 12/27/2020, Additional history exists COVID-19 Vaccine Completed 01/27/2023, , 05/13/2020, Additional history exists VITAMIN D LEVEL ONCE IN A LIFETIME-USE SMARTSET# 28823 Completed 04/01/2023, 11/13/2022, 06/26/2021, Additional history exists GARDASIL-HPV IMMUNIZATION SERIES Aged Out No longer eligible based on patient's age to complete this topic MENINGOCOCCAL (MENACTRA/MENVEO) Aged Out No longer eligible based on patient's age to complete this topic documented as of this encounter Medical Devices Implanted Type Area Building Construction Professor Device Identifier Shelf Expiration Date Model / Serial / Lot Lens Intraoc 22.0 - [id number] - [id number] Implanted:Qty: 1 on 07/01/2021 by Gee Hagen MD at OR [facility] Right: Eye [employer]USCH [employer] LOMB 02/25/2026 [id number] / [id number] / [id number] Lens Intraoc 19.5 - [id number] - [id number] Implanted:Qty: 1 on 07/15/2021 by Gee Hagen MD at OR [facility] Left: Eye BAUSCH & LOMB 02/25/2026 [id number] / [id number] / documented as of this encounter Care Teams Assembly Line Supervisor Relationship Specialty Start Date End Date Phil Maldonado MD 200 [facility] [place] [facility] [address] PCP - General Internal Medicine 06/19/19 documented as of this encounter
--- OUTSIDE RECORDS SUMMARY | 2024-01-02 15:39 | External Medical Summary ---
Author Name Unknown Address Unknown Organization K01:LABORATORY [facility] - [address] [place] [address] Laboratory Report Ordering Provider Test Date Status ANGELA BAUTISTA 08/11/2023 11:15:51 Final Observation Date Value Abnormality Reference (Units ) Status TSH 08/11/2023 11:15:51 1.97 0.27-4.20 (uIU/mL) Final Performing Location LAB[facility]ATORY [facility] - [address] [place] [address]
--- OUTSIDE RECORDS SUMMARY | 2024-01-02 15:39 | External Medical Summary | Summary of Care ---
Author Name Unknown Organization [facility] Address [address] [place] [address] Phone [phone] Care Team Providers Care Refinery Process Engineer Name Role Phone Phil Miller MD Primary Care Provider + Reason for Visit * Reason Comments eRx-Medication Refill Encounter Details Date Type Department Care Team (Late st Contact Info) Description 08/03/2023 Refill General Internal Medicine [facility] 200 [facility] [place] [address] Pihl Miller MD 200 [place] [address] Generalized anxiety disorder; Essential hypertension with goal blood pressure less than 140/90; Moderate persistent asthma without complication Allergies Active Allergy Reactions Criticality Noted Date Comments Sulfa Antibiotics Hives 10/29/1998 documented as of this encounter (statuses as of 08/04/2023) Medications Medication Sig Dispensed Refills Start Date [...] (1000 UT) Oral CapsuleIndications: Nutritional Support 0 05/12/19 23 Active Famotidine 20 [...] Additional Information Patient taking differently:75 mcg Oral [id number], AT LEAST 30 MINUTES PRIOR TO BREAKFAST OR OTHER MEDS,Indications: Hypothyroidism, Reported on 05/26/2023 Azelastine HCl 0.1 % Nasal Solution (Astelin) Administer 2 Sprays into nostril in the morning and 2 Sprays before bedtime. 90 mL 3 01/15/20 Active Additional Information Patient taking differently:2 [place] NasalBID PRN, Rhinitis, Indications: Allergic Rhinitis, Reported [...] 02/10/20 Active Additional Information Patient taking differently:2 [place] Each Nostril Daily(AM),Indications: Allergic Rhinitis, Reported on [...] EVERY MORNING 180 Tablet 3 03/19/20 23 Active Additional Information Patient taking differently: 200 [...] Anxiety. 30 Tablet 0 07/08/19 24 Active Lisinopril-hydroCHL OROthiazide 20-12.5 MG Oral TabletIndications:H ypertension Take 2 Tablets by mouth in the morning. 180 Tablet 1 07/09/19 24 Active methylPREDNISolone 4 MG Oral Tablet Therapy Pack (Medrol Dosepack) follow package directions 21 Tablet 0 07/12/19 24 Active PARoxetine HCl 30 MG Oral [...] BEDTIME 90 Tablet 1 08/04/19 24 Active PARoxetine HCl 30 MG Oral [...] Discontinued Montelukast Sodium 10 MG Oral Tablet (Singulair)Indicati ons:Asthma Take 1 Tablet by mouth at bedtime. 90 Tablet 1 03/17/20 23 024 Discontinued Hospital, Clinic, or Other Facility Administered Medication Ordered Dose Route Frequency Start Date End Date Status Denosumab (Prolia) subcut inj 60 mgIndications:Senile osteoporosis 60 mg SC [id number] 03/04/2023 02/27/2024 Active documented as of this encounter (statuses as of 08/04/2023) Active Problems Problem Noted Date Diagnosed Date [...] as of this encounter (statuses as of 08/04/2023) Resolved Problems Problem Noted Date Diagnosed Date [...] as of this encounter (statuses as of 08/04/2023) Immunizations Name Administration Dates Next Due COVID-19 [...] encounter Miscellaneous Notes * Telephone Encounter - Pamela Malin [facility] - 08/04/2023 3:01 PM EDTSigned Prescriptions: Disp Refills PARoxetine HCl 30 MG Oral Tablet (Paxil) 90 Tab*1 Sig: TAKE 1 TABLET BY MOUTH ONCE DAILY IN THE MORNINGAuthorizing Provider: PHIL MILLER User: PAMELA MALIN Metoprolol Succinate ER 25 MG Oral Tablet *45 Tab*1 Sig: TAKE 1/2 TABLET EVERY MORNINGAuthorizing Provider: PHIL MILLER User: PAMELA MALIN Montelukast Sodium 10 MG Oral Tablet (Sing*90 Tab*1 Sig: TAKE 1 TABLET BY MOUTH AT BEDTIMEAuthorizing Provider: PHIL MILLER User: PAMELA MALIN documented in this encounter Plan of Treatment Upcoming Encounters Date Type Department Care Team (Late st Contact Info) Description 08/11/2023 10:40 AM EDT Office Visit General Internal Medicine [facility] [address] [facility] [place], [place] [address] Phil Miller MD [address] [facility] [place] [address] 09/06/2023 1:00 PM EDT Anticoagulation Pharmacy, [facility] 200 [facility] [place] [address] Pharmacist2, [facility] [address] [facility] [place] [address] 09/13/2023 2:30 PM EDT Nurse Only Rheumatology [place] [address] [place] [address] Pf, Nurse Rheum [facility] [place] [address] 09/22/2023 10:00 AM EDT Imaging Radiology [facility] 1st [facility] [address] [facility] [place] [address] 09/22/2023 12:00 PM EDT Office Visit Pulmonary Medicine, [facility] [address] [facility] [place] [address] Stanley Chavez MD [address] [place] [address] 10/04/2023 11:00 AM EDT Imaging Radiology, [place] [address] [address] [place] [address] 10/04/2023 1:30 PM EDT Office Visit Allergy/Immunology [facility] [address] [place] [address] Felisa Garcia PA-C 200 [facility] [place], [place] [address] 10/19/2023 10:30 AM EDT Office Visit Nephrology, [facility] [address] [facility] [place], [place] [address] Gena Walton PA-C [address] [facility] [place], [place] [address] 02/22/2024 11:15 AM EST Office Visit Dermatology [facility] [address] [facility] [place], [place] [id number] Phil Perez MD [address] [facility] [place], [place] [address] 03/15/2024 10:20 AM EST Office Visit Rheumatology [place] [address] [place] [address] Tristan Richards MD [facility] [place] [address] Health Maintenance Due Date Last Done Comments Depression Screening 07/22/2023 07/21/2022 CKD PHOS USE SMARTSET 23245 08/26/202307/29, 06/26/2021, 10/21/2020, Additional history exists Albumin/Creatinine Ratio 08/27/2023 023, 06/30/2021, 03/11/2017, Additional history exists DTaP,Tdap,and Td Vaccines (2 - Td or Tdap) 09/08/2023 09/07/2013, 02/17/2010, 10/18/2001, Additional history exists DXA Scan 10/01/2023 09/30/2021, 07/2021, 09/25/2019, Additional history exists GFR 01/04/2024 07/05/2023, 11/2022, 01/05/2023, Additional history exists CKD HGB USE SMARTSET 23185 07/04/202407/04, 07/05/2023, 02/04/2023, Additional history exists TSH 07/04/2024 07/05/2023, 11/2022, 10/15/2022, Additional history exists Zoster Vaccines Discontinued 02/10/2007 Pneumococcal Vaccine: 65+ Years Completed 07/20/2014, 01/30/2008, 10/16/1994 Influenza Vaccine (FLU shot) Completed 01/05/2023, 01/16/2022, 12/27/2020, Additional history exists COVID-19 Vaccine Completed 01/27/2023, , 05/13/2020, Additional history exists VITAMIN D LEVEL ONCE IN A LIFETIME-USE SMARTSET# 07435 Completed 04/01/2023, 11/13/2022, 06/26/2021, Additional history exists GARDASIL-HPV IMMUNIZATION SERIES Aged Out No longer eligible based on patient's age to complete this topic MENINGOCOCCAL (MENACTRA/MENVEO) Aged Out No longer eligible based on patient's age to complete this topic documented as of this encounter Medical Devices Implanted Type Area Foot Gatherer Device Identifier Shelf Expiration Date Model / Serial / Lot Lens Intraoc 22.0 - [id number] - [id number] Implanted:Qty: 1 on 07/01/2021 by Gee Hagen MD at OR [facility] Right: Eye [employer]CH [employer] LOMB 02/25/2026 [id number] / [id number] / [id number] Lens Intraoc 19.5 - [id number] - [id number] Implanted:Qty: 1 on 07/15/2021 by Gee Hagen MD at OR [facility] Left: Eye BAUSCH & LOMB 02/25/2026 [id number] / [id number] / documented as of this encounter Visit Diagnoses Diagnosis Generalized anxiety disorder Essential hypertension with goal blood pressure less than 140/90 Moderate persistent asthma without complication Unspecified asthma documented in this encounter Care Teams Refinery Process Engineer Relationship Specialty Start Date End Date Phil Miller MD [address] [place] [address] PCP - General Internal Medicine 06/19/19 documented as of this encounter
--- OUTSIDE RECORDS SUMMARY | 2024-01-02 15:39 | External Medical Summary | Summary of Care ---
Author Name Unknown Organization [facility] Address [address] [place] [address] Phone [phone] Care Team Providers Care Library Director Name Role Phone Phil Maldonado MD Primary Care Provider + Reason for Visit * Reason Comments Dosage Adjustment In Person (Anticoag Cl inic) Encounter Details Date Type Department Care Team (Latest Contact Info) Description 07/28/2023 2:00 PM EDT Anticoagulation Pharmacy, 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 90 mL 3 3 Active Additional Information Patient taking differently:2 [place] NasalBID PRN, Rhinitis, Indications: Allergic Rhinitis, [...] 3 Active Additional Information Patient taking differently:2 [place] Each Nostril Daily(AM),Indications: Allergic Rhinitis, Reported [...] inj 60 mgIndications:Senile osteoporosis 60 mg SC [id number] 03/04/2023 02/27/2024 Active documented as of this encounter (statuses as of 07/28/2023) Active Problems Problem Noted Date Diagnosed Date [...] as of this encounter (statuses as of 07/28/2023) Resolved Problems Problem Noted Date Diagnosed Date [...] as of this encounter (statuses as of 07/28/2023) Immunizations Name Administration Dates Next Due COVID-19 [...] Progress Notes * Pancho Perez RPh - 07/28/2023 2:01 PM EDT Medication Therapy Disease Management - Anticoagulation Patient: Horacio Yeung | : 1940 Subjective Patient-Reported Symptoms: Patient Findings Negatives: Signs/symptoms of thrombosis, Signs/symptoms of bleeding, Change in health, Change in alcohol use, Change in activity, Upcoming invasive procedure, Missed doses, Extra doses, Change in medications, Change in diet/appetite, Bruising Objective Current Warfarin Dose As of 07/28/2023 Warfarin maintenance plan: 1.25 mg (2.5 mg x 0.5) every Mon, Adrianna; 2.5 mg (2.5 mg x 1) all other days INR Result As of 07/28/2023 INR goal: 2.0-3.0 INR used for dosin.0 (07/28/2023) Assessment & Plan Warfarin Plan As of 07/28/2023 Full warfarin instructions: 1.25 mg every Mon, Adrianna; 2.5 mg all other days No change documented: Pancho Perez RPh Next INR check: 09/06/2023 Repeat PT/INR in 6 week(s) Weekly dose: not changed Additional Dosing Information: Pancho Perez RP Clinical Pharmacist 07/28/2023, 2:01 PM documented in this encounter Plan of Treatment Upcoming Encounters Date Type Department Care Team (Late st Contact Info) Description 08/11/2023 10:40 AM EDT Office Visit General Internal Medicine [facility] [address] [facility] [place] [address] Phil Maldonado MD 200 [facility] [place] [address] 09/06/2023 1:00 PM EDT Anticoagulation Pharmacy, [facility] [address] [facility] [place] [address] Pharmacist2, [facility] [place] [address] 09/13/2023 2:30 PM EDT Nurse Only Rheumatology [facility] [address] [place] [address] Pf, Nurse Rheum [facility] [place] [address] 09/22/2023 10:00 AM EDT Imaging Radiology [facility] [address] [facility] [place] [address] 09/22/2023 12:00 PM EDT Office Visit Pulmonary Medicine, [facility] [address] [facility] [place] [address] Stanley Chavez MD [address] [place] [address] [address] 10/04/2023 11:00 AM EDT Imaging Radiology, [facility] [address] [place] [address] 10/04/2023 1:30 PM EDT Office Visit Allergy/Immunology [facility] 200 [place] [address] Felisa Garcia PA-C 200 [place] [address] 10/19/2023 10:30 AM EDT Office Visit Nephrology, [facility] [address] [place] [address] Gena Walton PA-C 200 [facility], [place] [address] 02/22/2024 11:15 AM EST Office Visit Dermatology [facility] 200 [facility] [place], [place] [id number] Phil Perez MD 200 [facility], [place] [id number] 03/15/2024 10:20 AM EST Office Visit Rheumatology [place] [address] [facility] [place], [place] [address] Tristan Richards MD [facility] [place] [address] Scheduled Orders Name Type Priority Associated Diagnoses Orde r Schedule PT INR Lab Routine History of pulmonary embolism Anticoagulation management encounter 26 Occurrences starting 07/28/2023 until 07/27/2024 INR FINGERSTICK, POINT OF CARE Point of Care Testing - Unsolicited Results STAT History of pulmonary embolism Anticoagulation management encounter Every 2 Weeks for 26 Occurrences starting 07/28/2023 until 07/27/2024, 1 completed Health Maintenance Due Date Last Done Comments Depression Screening 07/22/2023 07/21/2022 CKD PHOS USE SMARTSET 44854 08/26/2023 05, 06/26/2021, 10/21/2020, Additional history exists Albumin/Creatinine Ratio 08/27/2023 023, 06/30/2021, 03/11/2017, Additional history exists DTaP,Tdap,and Td Vaccines (2 - Td or Tdap) 09/08/2023 09/07/2013, 02/17/2010, 10/18/2001, Additional history exists DXA Scan 10/01/2023 09/30/2021, 07/2021, 09/25/2019, Additional history exists GFR 01/04/2024 07/05/2023, 11/2022, 01/05/2023, Additional history exists CKD HGB USE SMARTSET 93126 07/04/202407/04, 07/05/2023, 02/04/2023, Additional history exists TSH 07/04/2024 07/05/2023, 11/2022, 10/15/2022, Additional history exists Zoster Vaccines Discontinued 02/10/2007 Pneumococcal Vaccine: 65+ Years Completed 07/20/2014, 01/30/2008, 10/16/1994 Influenza Vaccine (FLU shot) Completed 01/05/2023, 01/16/2022, 12/27/2020, Additional history exists COVID-19 Vaccine Completed 01/27/2023, , 05/13/2020, Additional history exists VITAMIN D LEVEL ONCE IN A LIFETIME-USE SMARTSET# 21656 Completed 04/01/2023, 11/13/2022, 06/26/2021, Additional history exists GARDASIL-HPV IMMUNIZATION SERIES Aged Out No longer eligible based on patient's age to complete this topic MENINGOCOCCAL (MENACTRA/MENVEO) Aged Out No longer eligible based on patient's age to complete this topic documented as of this encounter Medical Devices Implanted Type Area Obiee Obia Solution Architect Device Identifier Shelf Expiration Date Model / Serial / Lot Lens Intraoc 22.0 - [id number] - [id number] Implanted:Qty: 1 on 07/01/2021 by Gee Hagen MD at OR [facility] Right: Eye [employer] 02/25/2026 [id number] / [id number] / [id number] Lens Intraoc 19.5 - [id number] - [id number] Implanted:Qty: 1 on 07/15/2021 by Gee Hagen MD at OR [facility] Left: Eye [employer]OM[employer] 02/25/2026 [id number] / [id number] / documented as of this encounter Procedures Procedure Name Priority Date/Time Associated Diagnosis Comments INR FINGERSTICK, POINT OF CARE STAT 07/28/2023 2:03 PM EDT History of pulmonary embolism Anticoagulation management encounter documented in this encounter Results * INR FINGERSTICK, POINT OF CARE (07/28/2023 2:03 PM EDT) Fingerstick INR 3.0 INR 2:15 PM EDT [facility] 56 Blood 07/28/2023 2:03 PM EDT 07/28/2023 2:15 PM EDT Narrative [facility] 56- - 07/28/2023 2:15 PM EDT Therapeutic ranges for non-operative patients: Prophylaxsis/treatment of DVT: (Range:2.0-3.0) Treatment of pulmonary embolism:(Range:2.0-3.0) Prevention of systemic embolism from: -tissue heart valves -acute myocardial infarction -valvular heart disease -atrial fibrillation (Range: 2.0-3.0) Mechanical prosthetic valves: (Range: 2.5-3.5) Pancho Perez [facility]ly [facility] POINT O F CARE TEST DOCKED DEVICE UNSOLICITED RESULTS [facility] [address] documented in this encounter Visit Diagnoses Diagnosis Anticoagulation management encounter- Primary Encounter for therapeutic drug monitoring History of pulmonary embolism Personal history of pulmonary embolism documented in this encounter Care Teams Library Director Relationship Specialty Start Date End Date Phil Maldonado MD 200 [facility] [place] [address] PCP - General Internal Medicine 06/19/19 documented as of this encounter"
--- OUTSIDE RECORDS SUMMARY | 2024-01-02 15:39 | External Medical Summary ---
Author Name Unknown Address Unknown Organization K[facility] [place] [address] Laboratory Report Ordering Provider Test Date Status ANGELA BAUTISTA 08/11/2023 11:15:51 Final Observation Date Value Abnormality Reference (Units ) Status Phosphate 08/11/2023 11:15:51 3.9 2.5-4.8 (m g/dL) Final Performing Location [facility] [place] [address]
--- OUTSIDE RECORDS SUMMARY | 2024-01-02 15:39 | External Medical Summary | Summary of Care ---
Author Name Unknown Organization [facility] Address [address] [place] [address] Phone [phone] Care Team Providers Care Networking Technology Instructor Name Role Phone Phil Maldonado MD Primary Care Provider + Reason for Visit * Reason Comments Outpatient Testing Encounter Details Date Type Department Care Team (Late st Contact Info) Description 08/11/2023 11:20 AM EDT Laboratory Laboratory [facility] [address] [place] [address] [place], Lab Scenery [address] [place] [address] Dyslipidemia, goal LDL below 100; Hypertensive kidney disease with stage 3b chronic kidney disease (HCC); Hypothyroidism due to acquired atrophy of thyroid Allergies Active Allergy Reactions Criticality Noted Date [...] 30-600 MG 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 90 mL 3 3 Active Additional Information Patient taking differently:2 [place] NasalBID PRN, Rhinitis, Indications: Allergic Rhinitis, Reported [...] 3 Active Additional Information Patient taking differently:2 [place] Each Nostril Daily(AM),Indications: Allergic Rhinitis, Reported on [...] 60 Blister Dosing Unit 0 4 Active Hospital, Clinic, or Other Facility Administered Medication Ordered Dose Route Frequency Start Date End Date Status Denosumab (Prolia) subcut inj 60 mgIndications:Senile osteoporosis 60 mg SC [id number] 03/04/2023 02/27/2024 Active documented as of this [...] 08/24/2023 2:30 PM EDT Office Visit Nephrology, [facility] [address] [place] [address] ZemaGena aranda PA-C [address] [place] [address] 09/06/2023 1:00 PM EDT Anticoagulation Pharmacy, [facility] [place] [address] [place] [address] Pharmacist2, [facility] [address] [place] [address] 09/13/2023 2:30 PM EDT Nurse Only Rheumatology [facility] [address] [place] [address] [address] Pf, Nurse Rheum [address] [address] 09/22/2023 10:00 AM EDT Imaging Radiology [facility] [address] [facility] [place] [address] 09/22/2023 12:00 PM EDT Office Visit Pulmonary Medicine, [facility] [address] [facility] [place] [address] Stanley Chavez MD [address] [facility] [address] 10/04/2023 11:00 AM EDT Imaging Radiology, [address] [place] [address] 10/04/2023 1:30 PM EDT Office Visit Allergy/Immunology [facility] [address] [place] [address] Felisa Garcia PA-C 200 [facility] [place] [address] 02/22/2024 11:15 AM EST Office Visit Dermatology [facility] [address] [place], [place] [address] Phil Perez MD 200 [facility] [place] [address] 03/09/2024 2:40 PM EST Office Visit General Internal Medicine [facility] [address] [place], [place] [address] Phil Maldonado MD 200 [facility] [place], [place] [address] 03/15/2024 10:20 AM EST Office Visit Rheumatology [address] [place], [place] [address] Tristan Richards MD [address] [place] [address] [employer] [place], [place] [address] Pending Results Name Type Priority Associated Diagnoses Date /Time HEPATIC FUNCTION PANEL Lab Routine Dyslipidemia, goal LDL below 100 08/11/2023 11:15 AM EDT PHOSPHORUS Lab Routine Hypertensive kidney disease with stage 3b chronic kidney disease (HCC) 08/11/2023 11:15 AM EDT TSH WITH FREE T4 IF INDICATED Lab Routine Hypothyroidism due to acquired atrophy of thyroid 08/11/2023 11:15 AM EDT Health Maintenance Due Date Last Done Comments Depression Screening 07/22/2023 07/21/2022 CKD PHOS USE SMARTSET 81215 08/26/202307/29, 06/26/2021, 10/21/2020, Additional history exists Albumin/Creatinine Ratio 08/27/2023 023, 06/30/2021, 03/11/2017, Additional history exists DTaP,Tdap,and Td Vaccines (2 - Td or Tdap) 09/08/2023 09/07/2013, 02/17/2010, 10/18/2001, Additional history exists DXA Scan 10/01/2023 09/30/2021, 07/0 07/2021, 09/25/2019, Additional history exists GFR 01/04/2024 07/05/2023, 11/0 11/2022, 01/05/2023, Additional history exists CKD HGB USE SMARTSET 05705 07/04/202407/04, 07/05/2023, 02/04/2023, Additional history exists TSH 07/04/2024 07/05/2023, 11/0 11/2022, 10/15/2022, Additional history exists Zoster Vaccines Discontinued 02/10/2007 Pneumococcal Vaccine: 65+ Years Completed 07/20/2014, 01/30/2008, 10/16/1994 Influenza Vaccine (FLU shot) Completed 01/05/2023, 01/16/2022, 12/27/2020, Additional history exists COVID-19 Vaccine Completed 01/27/2023, , 01/23/2021, Additional history exists VITAMIN D LEVEL ONCE IN A LIFETIME-USE SMARTSET# 61925 Completed 04/01/2023, 11/13/2022, 06/26/2021, Additional history exists GARDASIL-HPV IMMUNIZATION SERIES Aged Out No longer eligible based on patient's age to complete this topic MENINGOCOCCAL (MENACTRA/MENVEO) Aged Out No longer eligible based on patient's age to complete this topic documented as of this encounter Medical Devices Implanted Type Area Stockroom Keeper Device Identifier Shelf Expiration Date Model / Serial / Lot Lens Intraoc 22.0 - [id number] - [id number] Implanted:Qty: 1 on 07/01/2021 by Gee Hagen MD at OR [facility] Right: Eye [employer] 02/25/2026 [id number] / [id number] / [id number] Lens Intraoc 19.5 - [id number] - [id number] Implanted:Qty: 1 on 07/15/2021 by Gee Hagen MD at OR [facility] Left: Eye BAUSCH [employer] LOMB 02/25/2026 [id number] / [id number] / documented as of this encounter Visit Diagnoses Diagnosis Dyslipidemia, goal LDL below 100 Other and unspecified hyperlipidemia Hypertensive kidney disease with stage 3b chronic kidney disease (HCC) Hypothyroidism due to acquired atrophy of thyroid documented in this encounter Care Teams Networking Technology Instructor Relationship Specialty Start Date End Date Phil Maldonado MD 200 [place] [address] PCP - General Internal Medicine 06/19/19 documented as of this encounter
--- OUTSIDE RECORDS SUMMARY | 2024-01-02 15:39 | External Medical Summary ---
Author Name Unknown Address Unknown Organization K[facility] [place] [address] Laboratory Report Ordering Provider Test Date Status LILYANGÉLICA 08/11/2023 11:15:51 Final Observation Date Value Abnormality Reference (Units ) Status Albumin 08/11/2023 11:15:51 4.1 3.8-5.0 (g/dL) Final AST (Aspartate aminotransferase) 08/11/2023 11:15:51 20 10-35 (U/L) Final Alk Phos 08/11/2023 11:15:51 68 35-130 (U/L) Final ALT (Alanine aminotransferase) 08/11/2023 11:15:51 10 10-35 (U/L) Final Bilirubin, Total 08/11/2023 11:15:51 0.3 <=1.2 (mg/dL) Final Bilirubin, Direct 08/11/2023 11:15:51 <0.2 0.0-0.3 (mg/dL) Final Protein 08/11/2023 11:15:51 6.4 6.0-8.3 (g/dL) Final Performing Location [facility] [place] [address]
--- OUTSIDE RECORDS SUMMARY | 2024-01-02 15:39 | External Medical Summary ---
Author Name Unknown Address Unknown Organization [facility] [place] [id number] Laboratory Report Ordering Provider Test Date Status VIKY GILL 07/28/2023 14:03:53 Final Therapeutic ranges for non-o perative patients:
Prophylaxsis/treatment of DVT: (Range:2.0-3.0)
Treatment of pulmonary embolism:(Range:2.0-3.0)
Prevention of systemic embolism from:
-tissue heart valves
-acute myocardial infarction
-valvular heart disease
-atrial fibrillation
(Range: 2.0-3.0)
Mechanical prosthetic valves: (Range: 2.5-3.5) Observation Date Value Abnormality Reference (Units ) Status INR in Capillary blood by Coagulation assay 07/28/2023 14:03:53 3.0 (INR) Final Performing Location [facility] [place] [id number]
[2024-01-02 15:46] VITALS: TEMP 97.9
[2024-01-02 16:21] LABS: Basophils % (auto) 0.7 %; Eosinophils # (auto) 0.15 K/uL (0.00-0.50); Eosinophils % (auto) 1.1 %; Hemoglobin 14.1 g/dl (12.0-16.0); Immature Granulocytes % (auto) 0.7 %; Lymphocytes # (auto) 2.24 K/uL (1.20-3.40); Lymphocytes % (auto) 16.4 %; Monocytes # (auto) 0.85 K/uL (0.11-0.59); Monocytes % (auto) 6.2 %; Neutrophils % (auto) 74.9 %; Platelet Count 357 K/uL (130-400); RDW Coefficient of Variation 13.8 % (11.5-14.5); RDW Standard Deviation 50.6 fL (36.4-46.3); White Blood Count 13.64 K/ul (4.8-10.8)
[2024-01-02] MEDS: ONDANSETRON INJ 2 MG/ML 2 ML VIAL IV STA ×2 (16:24→20:48)
[2024-01-02] MEDS: HYDROmorphone INJ 0.5 MG/0.5 ML SYR IV PRN (16:24)
[2024-01-02 16:36] LABS: Albumin Globulin Ratio 1.5 (0.9-2); Albumin Level 4.3 gm/dl (3.4-5.0); BUN Creatinine Ratio 19.6 (10-20); Bilirubin,Total 0.6 mg/dl (0.2-1.0); Calcium 9.9 mg/dl (8.6-10.3); Creatinine Clr Calc Pharmacy 31.2 ml/min; Globulin 2.8 gm/dl (2.5-4.0); Potassium 4.7 mmol/L (3.5-5.1); Total Protein 7.1 gm/dl (6.0-8.3)
--- NOTE | 2024-01-02 16:45 | Emergency Department Note ---
Impression & Plan Acute generalized abdominal pain, Nausea, Syncope and collapse, Colitis, Infection due to Norovirus species ED Provider Note NAME: ZOYA GILL AGE: 83 SEX: Female INFORMANT: Patient and family ED PROVIDER(S): Rommel Gramajo MD CHIEF COMPLAINT: Abdominal pain PLAN: Disposition: Admitted Outpatient prescription management: none Referral: None MEDICAL DECISION MAKING: Patient presented because of abdominal pain and syncope. She was tender on examination. The patient was hydrated. She was given Dilaudid and Zofran for symptom control. Blood work and urinalysis ordered. CT imaging performed. Patient's ECG did not reveal any acute ischemia. Mild tachycardia noted. CT imaging revealed the presence of possible colitis/diarrheal illness. Patient had a positive lactate therefore CT angiography was also performed. There was no significant ischemia appreciated per radiology. Patient was feeling better after symptomatic treatment although she did require second dose of IV Zofran. On reassessment patient was feeling better. Discussed further management in the hospital and patient and family in agreement. Consultation was made with Dr. Saul Cadena, [facility] hospitalist service. Patient was evaluated in the ER admitted for further management. I did order stool studies. C. difficile did come back negative. Patient was found to have a positive [employer] stool sample for norovirus after admission. Care/management discussed with: manager global Level of care consideration(s): After review of the information above and other included data, I feel the patient requires escalation of care to admission Triage Nursing notes: reviewed and agree them. Vital Signs: reviewed and remarkable for mild tachycardia Additional History obtained from: Patient's family regarding the events with a syncopal episode. Chronic Medical/Social Conditions affecting care: Hypertension Prior/ Outside/ External records reviewed: none Differential Diagnosis: Cardiac sources, vasovagal event, renal colic, UTI, appendicitis, diverticulitis, mesenteric ischemia, aortic pathology, infections, inflammatory bowel disease, PUD, biliary pathology, as well as other pathologies. Diagnostics, independently interpreted by me: ECG: Twelve-lead ECG reveals sinus tachycardia 105 bpm. PVC and low-voltage QRS. No ischemia. Cardiac Monitoring: Cardiac monitoring ordered by me: The patient was placed on continuous cardiac monitoring and observed. It revealed a normal sinus rhythm at 98 beats per minute without ectopy or evidence of dysrhythmia. Medical decision rules: none Imaging studies: CT scan of the abdomen pelvis reveals a nonspecific colitis/diarrheal illness. No obstruction. No free air. HPI: 83 year old Female arrives for evaluation of abdominal pain. This started this afternoon just prior to arrival and is described as generalized. Patient was standing for some time and developed nausea and abdominal pain. Patient reportedly had a syncopal episode per her daughter. She did not suffer any trauma. The patient also notes the following associated symptoms, fatigue. The patient has been given no medication for relieving factors. Current pain is rated as 8/10. Patient states he has a history of IBS but this feels different. Pt denies headache, fevers, chills, diaphoresis, visual changes, neck pain, chest pain, leg swelling, vomiting, abdominal pain, back pain, melena, hematochezia, urinary symptoms, numbness, weakness, lymphadenopathy, rash, or other complaints.. PAST MEDICAL HISTORY: Hypertension, see below PAST SURGICAL HISTORY: See Below, SOCIAL HISTORY: See Below, retired HOME MEDICATIONS: See Below ALLERGIES: See Below VITALS: See Below PHYSICAL EXAMINATION: GENERAL: Awake, alert, mildly ill-appearing, in no distress HENT: Normocephalic, atraumatic. Oropharynx unremarkable. EYES: Normal conjunctiva. Sclera non-icteric. NECK: Inspection normal. Non-tender. Supple. No nuchal rigidity. FROM. No masses. RESPIRATORY: Clear to auscultation. No wheezes. No rales. Normal respiratory effort. CARDIAC: Tachycardic rate. Normal rhythm. No murmurs. No rubs. Extremities warm and well perfused. Pulses equal. No JVD. GI: Soft, non-distended. Generalized tenderness to palpation. No rebound or guarding. No masses. RECTAL: Deferred. MUSCULOSKELETAL: Atraumatic. Chest examination reveals no tenderness. The back is symmetrical on inspection without obvious abnormality. There is no CVA tenderness to palpation. No joint edema. LOWER EXTREMITIES: Calves are equal size bilaterally and non-tender. Trace edema. No discoloration. NEURO: Normal sensorium. No sensory or motor deficits noted. SKIN: No rash or jaundice noted. PROCEDURES: none CRITICAL CARE: none OBSERVATION NOTE: none Past Med/Surg History Problem List (Updated 01/02/24 @ 22:11 by Rommel Gramajo MD) Infection due to Norovirus species (Acute) Colitis (Acute) Syncope and collapse (Acute) Nausea (Acute) Acute generalized abdominal pain (Acute) Movement disorder Cough Stroke-like symptoms (Acute) HTN (hypertension) (Acute) CKD (chronic kidney disease), stage III Costochondritis, acute Hypoxia (Acute) Leukocytosis Shortness of breath (Acute) CKD (chronic kidney disease), stage III History of pulmonary embolism Moderate persistent asthma (Acute) Chest pain (Acute) Hypothyroidism (Chronic) DVT prophylaxis (Acute) IBS (irritable bowel syndrome) (Chronic) History of cholecystectomy (Chronic) Hypertension (Chronic) Medical History CKD (chronic kidney disease), stage III Aneurysm of right renal artery History of pulmonary embolism Chronic gout Dyslipidemia Moderate persistent asthma Hypothyroidism IBS (irritable bowel syndrome) Hypertension Surgical History History of cholecystectomy Family History Father Hypertension Mother Stroke Other Family history non-contributory Social History Smoking Status: Never smoker Second Hand Exposure: Yes; Hx Alcohol Use: No Hx Substance Use: No Preferred Language: Faroese Communication Ability: Effective Manager Fine Required: No Beliefs That Will Affect Care: None marital status: Current Living Situation: Spouse current occupational status: retired Feels Safe at Home: Yes Assistive Devices: Cane and Walker Allergies Allergies Allergy/AdvReac Type Severity Reaction Status Date / Time Sulfa (Sulfonamide Allergy Intermediate HIVES Verified 01/02/24 18:24 Antibiotics) azithromycin Allergy Unknown Unknown Unverified 01/02/24 18:24 Home Meds Home Medications Medication Instructions Recorded Confirmed albuterol sulfate 90 mcg/actuation 2 puff inhalation Q6H PRN 02/20/18 01/02/24 aerosol inhaler Shortness Of Breath Or Wheezing cholecalciferol (vitamin D3) 25 1,000 unit PO QAM 02/20/18 01/02/24 mcg (1,000 unit) tablet (Vitamin D3) levocetirizine 5 mg tablet (Xyzal) 2.5 mg PO Q OTHER DAY 02/20/18 01/02/24 metoprolol succinate 25 mg 12.5 mg PO QAM 02/20/18 01/02/24 tablet,extended release 24 hr (Toprol XL) paroxetine HCl 30 mg tablet (Paxil) 30 mg PO QAM 02/20/18 01/02/24 pravastatin 10 mg tablet 10 mg PO QPM 02/20/18 01/02/24 spironolactone 25 mg tablet 25 mg PO QAM 02/20/18 01/02/24 (Aldactone) lorazepam 1 mg tablet 1 mg PO TID PRN Anxiety 02/24/18 01/02/24 lisinopril 20 2 tab PO QAM 12/29/18 01/02/24 mg-hydrochlorothiazide 12.5 mg tablet montelukast 10 mg tablet 10 mg PO PM 12/29/18 01/02/24 (Singulair) allopurinol 100 mg tablet 200 mg PO QAM 04/14/22 01/02/24 levothyroxine 75 mcg tablet 75 mcg PO DAILYBB 04/14/22 01/02/24 warfarin 2.5 mg tablet See Rx Instructions .Route .COMPLEX 04/14/22 01/02/24 fluticasone fur. 100 mcg-umeclid 1 inh inhalation QAM 07/14/23 01/02/24 62.5 mcg-vilant 25 mcg inhalat.powder (Trelegy Ellipta) fluticasone propionate 50 2 spray intranasal QAM PRN 07/14/23 01/02/24 mcg/actuation nasal Congestion spray,suspension prednisone 2.5 mg tablet 2.5 mg PO QAM 01/02/24 01/02/24 Results & Data (ED) Vital Signs Vital Signs - 24 hr 01/02/24 15:17 01/02/24 15:44 01/02/24 15:54 Temperature 36.6 C Temperature Source Oral Pulse Rate 102 H 101 H Pulse Rate [Apical] Pulse Rhythm [Apical] Pulse Strength [Apical] Respiratory Rate 21 Respiratory Effort / Characteristics Respiratory Depth Respiratory Pattern Blood Pressure 138/75 Blood Pressure [Left Arm] Blood Pressure Mean 96 Blood Pressure Mean [Left Arm] Blood Pressure Position [Left Arm] Pulse Oximetry 92 Oxygen Delivery Method Room Air Sepsis Recent Fever Within 48 Hours No Sepsis New/Unexplained Change in Mental Status No Sepsis Action Taken by Nursing No Action Required 01/02/24 18:06 01/02/24 20:00 01/02/24 20:07 Temperature Temperature Source Pulse Rate 76 Pulse Rate [Apical] 78 89 Pulse Rhythm [Apical] Regular Pulse Strength [Apical] Normal Respiratory Rate 16 18 Respiratory Effort / Characteristics Non-Labored Respiratory Depth Normal Respiratory Pattern Regular Blood Pressure Blood Pressure [Left Arm] 164/71 H 177/65 H Blood Pressure Mean Blood Pressure Mean [Left Arm] 102 102 Blood Pressure Position [Left Arm] Sitting Pulse Oximetry 90 93 Oxygen Delivery Method Room Air Room Air Sepsis Recent Fever Within 48 Hours Sepsis New/Unexplained Change in Mental Status Sepsis Action Taken by Nursing Laboratory Data 01/02/24 15:40 01/02/24 15:40 Lab Results 01/02/24 01/02/24 01/02/24 Range/Units 15:40 16:23 20:23 WBC 13.64 H (4.8-10.8) K/ul RBC 4.40 (4.20-5.40) M/uL Hgb 14.1 (12.0-16.0) g/dl Hct 44.0 (37.0-47.0) % MCV 100.0 (80.0-100.0) fL MCH 32.0 (25.0-34.0) pg MCHC 32.0 (32.0-36.0) g/dL RDW Std Deviation 50.6 H (36.4-46.3) fL RDW Coeff of Madhuri 13.8 (11.5-14.5) % Plt Count 357 (130-400) K/uL MPV 11.0 (9.4-12.4) fL Immature Gran % (Auto) 0.7 % Neut % (Auto) 74.9 % Lymph % (Auto) 16.4 % Coffee % (Auto) 6.2 % Eos % (Auto) 1.1 % Baso % (Auto) 0.7 % Neut # (Auto) 10.20 H (1.40-6.50) K/uL Lymph # (Auto) 2.24 (1.20-3.40) K/uL Coffee # (Auto) 0.85 H (0.11-0.59) K/uL Eos # (Auto) 0.15 (0.00-0.50) K/uL Baso # (Auto) 0.10 (0.00-0.20) K/uL Immature Gran # (Auto) 0.10 (0.01-0.20) K/uL PT 32.4 H (9.0-12.0) Seconds INR 3.3 H (0.9-1.1) Sodium 137 (136-145) mmol/L Potassium 4.7 (3.5-5.1) mmol/L Chloride 105 (98-107) mmol/L Carbon Dioxide 20 L (21-32) mmol/L Anion Gap 12 H (3-11) BUN 30 H (6-23) mg/dl Creatinine 1.53 H (0.6-1.2) mg/dl Est Cr Clr Drug Dosing 31.2 ml/min eGFR 33.98 BUN/Creatinine Ratio 19.6 (10-20) Glucose 158 H (70-99(Fasting)) mg/dl Lactate 2.5 H* (0.4-2.0) mmol/L Calcium 9.9 (8.6-10.3) mg/dl Magnesium 1.6 L (1.7-2.4) mg/dl Total Bilirubin 0.6 (0.2-1.0) mg/dl AST 25 (13-39) U/L ALT 17 (7-52) U/L Alkaline Phosphatase 53 (34-104) U/L Troponin I High Sens 11.0 (0-14) pg/ml Total Protein 7.1 (6.0-8.3) gm/dl Albumin 4.3 (3.4-5.0) gm/dl Globulin 2.8 (2.5-4.0) gm/dl Albumin/Globulin Ratio 1.5 (0.9-2) Lipase 51 (11-82) U/L Stl C. cayetanensis PCR Not Detected (NotDetected) Stool Rotavirus A PCR Not Detected (NotDetected) Stl Adenov F 40/41 PCR Not Detected (NotDetected) Stool Astrovirus (PCR) Not Detected (NotDetected) Stool Campylobacter PCR Not Detected (NotDetected) Stl C. diff Tox B Gene Negative Cdiff Gene (Neg) Stool Cryptosporidium PCR Not Detected (NotDetected) Stl E.coli Shiga Tox PCR Not Detected (NotDetected) Stl Enterotoxigenic E PCR Not Detected (NotDetected) Stool EPEC (PCR) Not Detected (NotDetected) Stool EAEC (PCR) Not Detected (NotDetected) Stl E. histolytica PCR Not Detected (NotDetected) Stool Giardia Lamblia PCR Not Detected (NotDetected) Stool Salmonella PCR Not Detected (NotDetected) Stool Sapovirus (PCR) Not Detected (NotDetected) Stl P. shigelloides PCR Not Detected (NotDetected) Stl Shigella/EIEC PCR Not Detected (NotDetected) St Y.enterocolitica PCR Not Detected (NotDetected) Stool Vibrio (PCR) Not Detected (NotDetected) Stl Vibrio cholerae PCR Not Detected (NotDetected) Stl Norovirus GI/GII PCR DETECTED A* (NotDetected) Administered Medications Hydromorphone HCl (Hydromorphone Inj 0.5 Mg/0.5 Ml Syr) 0.25 mg IV Q15M PRN PRN Reason: Pain Stop: 01/16/24 16:02 Last Admin: 01/02/24 20:48 Dose: 0.25 mg Documented By: Admin: 01/02/24 17:05 Dose: 0.25 mg Documented By: Admin: 01/02/24 16:24 Dose: 0.25 mg Documented By: LAURA Discontinued Medications Sodium Chloride (Nss) 500 mls @ 999 mls/hr IV .Q31M ONE Stop: 01/02/24 16:33 Last Infusion: 01/02/24 17:37 Dose: Infused Documented By: Admin: 01/02/24 16:57 Dose: 999 mls/hr Documented By: LAURA Sodium Chloride (Nss) 1,000 mls @ 125 mls/hr IV .Q8H DEANNE Stop: 02/01/24 16:14 Last Admin: 01/02/24 19:03 Dose: 125 mls/hr Documented By: LAURA Acetaminophen (Ofirmev) 1,000 mg in 100 mls @ 400 mls/hr IV NOW STA Stop: 01/02/24 21:54 Last Admin: 01/02/24 21:57 Dose: 400 mls/hr Documented By: LAURA Ioversol (Optiray 320 125ml) 119 ml IV ONCE ONE Stop: 01/02/24 17:35 Last Admin: 01/02/24 17:34 Dose: 119 ml Documented By: OSCAR Ondansetron HCl (Ondansetron Inj 2 Mg/Ml 2 Ml Vial) 4 mg IV NOW STA Stop: 01/02/24 16:04 Last Admin: 01/02/24 16:24 Dose: 4 mg Documented By: LAURA Ondansetron HCl (Ondansetron Inj 2 Mg/Ml 2 Ml Vial) 4 mg IV NOW STA Stop: 01/02/24 20:44 Last Admin: 01/02/24 20:48 Dose: 4 mg Documented By: LAURA Imaging Data Radiologist's Impression: Abdomen/Pelvis CT 01/02/24 16:03 CT SCAN OF THE ABDOMEN AND PELVIS WITHOUT IV CONTRAST CLINICAL HISTORY: Generalized abdominal pain. COMPARISON STUDY: Abdominal CT dated 02/20/2018. TECHNIQUE: CT scan of the abdomen and pelvis is performed from the lung bases to the proximal femora. Images are reviewed in the axial, sagittal, and coronal planes. IV contrast was not administered for this examination. Note that the examination is suboptimal without oral and IV contrast. A dose lowering technique was utilized adhering to the principles of ALARA. CT DOSE: 1318.52 mGy.cm FINDINGS: Lung bases: The heart is normal in size and without pericardial effusion. The lung bases are clear noting bibasilar scarring/atelectasis. There is mild bilateral lower lobe bronchiectasis. A small hiatal hernia is noted. Liver: The unenhanced liver is normal in size, contour, and attenuation. There is minimal central intrahepatic biliary ductal dilatation. A 1.9 cm right lobe cyst is unchanged. Gallbladder: Surgically absent noting clips in the gallbladder fossa. Spleen: Normal in size and attenuation. Pancreas: Unremarkable. Adrenal glands: Unremarkable. Kidneys: The unenhanced kidneys demonstrate cortical atrophy and are without hydronephrosis. There are no renal calculi identified. Renal sinus cysts are seen bilaterally. There is no evidence of contour deforming renal mass lesion. A 1.6 cm peripherally calcified aneurysm of the right renal artery is unchanged. Abdominal vasculature: The abdominal aorta is normal in course and caliber noting advanced atherosclerotic calcification. Bowel: There is mild colonic diverticulosis without CT evidence of acute diverticulitis. No bowel obstruction is seen. Liquid stool is noted throughout the colon. There is no colonic wall thickening or surrounding inflammation. A duodenal diverticulum is incidentally noted. The appendix is well-visualized and normal. Peritoneum: There is no intraperitoneal free air or abdominal ascites. There is a small fat-containing umbilical hernia. Lymphadenopathy: None. Pelvic viscera: The bladder, uterus, and adnexa are normal as visualized. Skeletal structures: The skeletal structures are osteopenic. There is moderate lumbosacral spondylosis as well as mild scoliosis. No lytic or blastic lesions are seen. IMPRESSION: 1. Liquid stool is seen throughout the colon. Correlate clinically for evidence of a diarrheal illness. 2. Mild colonic diverticulosis without CT evidence of acute diverticulitis. 3. A 1.6 cm partly calcified aneurysm of the right renal artery is unchanged. 4. Additional findings as above. ACT 112: Negative or not required by law. Electronically signed by: Brody Strauss M.D. 01/02/2024 5:30 PM Abdomen CTA 01/02/24 16:53 CT ANGIOGRAM OF THE ABDOMEN CLINICAL HISTORY: Generalized abdominal pain. Elevated lactate. COMPARISON STUDY: Unenhanced abdominal CT performed the same day 01/02/2024. TECHNIQUE: Following the IV administration of 119 cc of Optiray 320, CT angiogram of the abdomen was performed from the lung bases the pelvic inlet. Images are reviewed in the axial, sagittal, and coronal planes. 3-D MIPS images are created and assessed. IV contrast was administered without complication. A dose lowering technique was utilized adhering to the principles of ALARA. CT DOSE: 863.13 mGy.cm FINDINGS: Lower chest: The heart is normal in size and without pericardial effusion. The lung bases are clear noting bibasilar scarring/atelectasis. There is mild bilateral lower lobe bronchiectasis. A small hiatal hernia is noted. Liver: The contrast-enhanced liver is normal in size, contour, and attenuation. There is minimal central intrahepatic biliary ductal dilatation. A 1.9 cm right lobe cyst is unchanged. Gallbladder: Surgically absent noting clips in the gallbladder fossa. Spleen: Normal in size and attenuation noting heterogeneous arterial phase enhancement. Pancreas: Unremarkable. Adrenal glands: Unremarkable. Kidneys: The contrast enhanced kidneys demonstrate cortical atrophy and are without hydronephrosis. Renal sinus cysts are seen bilaterally. The kidneys enhance symmetrically. Abdominal aorta and iliac arteries: The abdominal aorta is normal in course and caliber noting advanced atherosclerotic calcification. The abdominal aorta is widely patent. No dissection is seen. Imaged portions of the common iliac arteries are patent. Major branches of the abdominal aorta: The celiac trunk, superior mesenteric, and inferior mesenteric arteries are widely patent. Hepatic arterial anatomy is conventional. The splenic artery is patent. Single bilateral renal arteries are patent. 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 There is an 0.7 cm aneurysm of the left renal artery. Bowel: Imaged portions of the small bowel and colon show no evidence of obstruction. Liquid stool seen throughout the imaged colon. The wall of the left colon appears mildly thickened and hyperemic. A duodenal diverticulum is incidentally noted. Peritoneum: There is no intraperitoneal free air or abdominal ascites. Lymphadenopathy: None. Skeletal structures: The skeletal structures are osteopenic. There is moderate lumbosacral spondylosis as well as mild scoliosis. No lytic or blastic Lesions are seen. IMPRESSION: 1. Unremarkable CT angiogram of the abdominal aorta and its major branches noting advanced atherosclerotic plaque and irregularity. 2. Findings suggest a diarrheal illness/mild nonspecific colitis of the left colon. Correlate clinically. 3. 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 4. Additional findings as above. ACT 112: Negative or not required by law. Electronically signed by: Brody Strauss M.D. 01/02/2024 7:41 PM Discharge Plan Visit Data Chief Complaint: Illness Stated Complaint: illness ED Provider: Rommel Gramajo Discharge Problem: Acute generalized abdominal pain, Nausea, Syncope and collapse, Colitis, Infection due to Norovirus species Forms Stand Alone Forms: My [facility] Applied Identity Prescriptions Prescriptions: No Action spironolactone [Aldactone] 25 mg tablet 25 mg PO QAM pravastatin 10 mg tablet 10 mg PO QPM paroxetine HCl [Paxil] 30 mg tablet 30 mg PO QAM albuterol sulfate 90 mcg/actuation Hfa Aerosol Inhaler 2 puff INHALATION Q6H PRN (Reason: Shortness Of Breath Or Wheezing) cholecalciferol (vitamin D3) [Vitamin D3] 1,000 unit Tablet 1,000 unit PO QAM levocetirizine [Xyzal] 5 mg tablet 2.5 mg PO Q OTHER DAY metoprolol succinate [Toprol XL] 25 mg Tablet Extended Release 24 Hr 12.5 mg PO QAM lorazepam 1 mg tablet 1 mg PO TID PRN (Reason: Anxiety) lisinopril-hydrochlorothiazide 20-12.5 mg Tablet 2 tab PO QAM montelukast [Singulair] 10 mg Tablet 10 mg PO PM warfarin 2.5 mg tablet See Rx Instructions .ROUTE .COMPLEX Rx Instructions: TAKES 2.5 MG ON WED, , WED, WED, SAT. THEN 1.25 MG ON WED/. Takes medication at night allopurinol 100 mg tablet 200 mg PO QAM levothyroxine 75 mcg tablet 75 mcg PO DAILYBB prednisone 2.5 mg tablet 2.5 mg PO QAM fluticasone propionate 50 mcg/actuation spray,suspension 2 spray INTRANASAL QAM PRN (Reason: Congestion) Trelegy Ellipta 100-62.5-25 mcg blister with device 1 inh INHALATION QAM Referrals Referrals: Phil Maldonado MD [Primary Care Provider] -
[2024-01-02] MEDS: SODIUM CHLORIDE 0.9% 500 ML IV ONE (16:57)
--- NOTE | 2024-01-02 17:32 | CT Scan Report ---
CT SCAN OF THE ABDOMEN AND PELVIS WITHOUT IV CONTRAST CLINICAL HISTORY: Generalized abdominal pain. COMPARISON STUDY: Abdominal CT dated 02/20/2018. TECHNIQUE: CT scan of the abdomen and pelvis is performed from the lung bases to the proximal femora. Images are reviewed in the axial, sagittal, and coronal planes. IV contrast was not administered for this examination. Note that the examination is suboptimal without oral and IV contrast. A dose lower ing technique was utilized adhering to the principles of ALARA. CT DOSE: 1318.52 mGy.cm FINDINGS: Lung bases: The heart is normal in size and without pericardial effusion. The lung bases are clear no ting bibasilar scarring/atelectasis. There is mild bilateral lower lobe bronchiectasis. A small hiata l hernia is noted. Liver: The unenhanced liver is normal in size, contour, and attenuation. There is minimal central int rahepatic biliary ductal dilatation. A 1.9 cm right lobe cyst is unchanged. Gallbladder: Surgically absent noting clips in the gallbladder fossa. Spleen: Normal in size and attenuation. Pancreas: Unremarkable. Adrenal glands: Unremarkable. Kidneys: The unenhanced kidneys demonstrate cortical atrophy and are without hydronephrosis. There ar e no renal calculi identified. Renal sinus cysts are seen bilaterally. There is no evidence of contou r deforming renal mass lesion. A 1.6 cm peripherally calcified aneurysm of the right renal artery is unchanged. Abdominal vasculature: The abdominal aorta is normal in course and caliber noting advanced atheroscle rotic calcification. Bowel: There is mild colonic diverticulosis without CT evidence of acute diverticulitis. No bowel obs truction is seen. Liquid stool is noted throughout the colon. There is no colonic wall thickening or surrounding inflammation. A duodenal diverticulum is incidentally noted. The appendix is well-visual ized and normal. Peritoneum: There is no intraperitoneal free air or abdominal ascites. There is a small fat-containin g umbilical hernia. Lymphadenopathy: None. Pelvic viscera: The bladder, uterus, and adnexa are normal as visualized. Skeletal structures: The skeletal structures are osteopenic. There is moderate lumbosacral spondylosi s as well as mild scoliosis. No lytic or blastic lesions are seen. IMPRESSION: 1. Liquid stool is seen throughout the colon. Correlate clinically for evidence of a diarrheal illnes s. 2. Mild colonic diverticulosis without CT evidence of acute diverticulitis. 3. A 1.6 cm partly calcified aneurysm of the right renal artery is unchanged. 4. Additional findings as above. ACT 112: Negative or not required by law. Electronically signed by: Brody Strauss M.D. 01/02/2024 5:30 PM
[2024-01-02] MEDS: OPTIRAY 320 125ml IV ONE (17:34)
[2024-01-02] MEDS: SODIUM CHLORIDE 0.9% 1,000 ML IV SCH (19:03)
--- NOTE | 2024-01-02 19:43 | CT Scan Report ---
CT ANGIOGRAM OF THE ABDOMEN CLINICAL HISTORY: Generalized abdominal pain. Elevated lactate. COMPARISON STUDY: Unenhanced abdominal CT performed the same day 01/02/2024. TECHNIQUE: Following the IV administration of 119 cc of Optiray 320, CT angiogram of the abdomen was performed from the lung bases the pelvic inlet. Images are reviewed in the axial, sagittal, and coron al planes. 3-D MIPS images are created and assessed. IV contrast was administered without complicatio n. A dose lowering technique was utilized adhering to the principles of ALARA. CT DOSE: 863.13 mGy.cm FINDINGS: Lower chest: The heart is normal in size and without pericardial effusion. The lung bases are clear n oting bibasilar scarring/atelectasis. There is mild bilateral lower lobe bronchiectasis. A small hiat al hernia is noted. Liver: The contrast-enhanced liver is normal in size, contour, and attenuation. There is minimal cent ral intrahepatic biliary ductal dilatation. A 1.9 cm right lobe cyst is unchanged. Gallbladder: Surgically absent noting clips in the gallbladder fossa. Spleen: Normal in size and attenuation noting heterogeneous arterial phase enhancement. Pancreas: Unremarkable. Adrenal glands: Unremarkable. Kidneys: The contrast enhanced kidneys demonstrate cortical atrophy and are without hydronephrosis. R enal sinus cysts are seen bilaterally. The kidneys enhance symmetrically. Abdominal aorta and iliac arteries: The abdominal aorta is normal in course and caliber noting advanc ed atherosclerotic calcification. The abdominal aorta is widely patent. No dissection is seen. Imaged portions of the common iliac arteries are patent. Major branches of the abdominal aorta: The celiac trunk, superior mesenteric, and inferior mesenteric arteries are widely patent. Hepatic arterial anatomy is conventional. The splenic artery is patent. Single bilateral renal arteries are patent. 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 There is an 0.7 cm aneurysm of the left renal artery. Bowel: Imaged portions of the small bowel and colon show no evidence of obstruction. Liquid stool see n throughout the imaged colon. The wall of the left colon appears mildly thickened and hyperemic. A d uodenal diverticulum is incidentally noted. Peritoneum: There is no intraperitoneal free air or abdominal ascites. Lymphadenopathy: None. Skeletal structures: The skeletal structures are osteopenic. There is moderate lumbosacral spondylosi s as well as mild scoliosis. No lytic or blastic Lesions are seen. IMPRESSION: 1. Unremarkable CT angiogram of the abdominal aorta and its major branches noting advanced atheroscle rotic plaque and irregularity. 2. Findings suggest a diarrheal illness/mild nonspecific colitis of the left colon. Correlate clinica lly. 3. 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 4. Additional findings as above. ACT 112: Negative or not required by law. Electronically signed by: Brody Strauss M.D. 01/02/2024 7:41 PM
[2024-01-02] MEDS ORDERED: PROMETHAZINE 6.25 MG/50.25 ML BAG IV PRN (20:13)
[2024-01-02 20:32] LABS: Magnesium 1.6 mg/dl (1.7-2.4)
[2024-01-02 20:39] LABS: INR 3.3 (0.9-1.1); Prothrombin Time 32.4 Seconds (9.0-12.0)
[2024-01-02 21:54] LABS: Adenovirus F 40/41 PCR Not Detected (NotDetected); Astrovirus PCR Not Detected (NotDetected); Campylobacter PCR Not Detected (NotDetected); Cryptosporidium PCR Not Detected (NotDetected); Cyclospora cayetanensis PCR Not Detected (NotDetected); Entamoeba histolytica PCR Not Detected (NotDetected); Enteroaggregative E.coli(EAEC) Not Detected (NotDetected); Enteropathogenic E.coli (EPEC) Not Detected (NotDetected); Enterotoxigenic E.coli (ETEC) Not Detected (NotDetected); Giardia lamblia PCR Not Detected (NotDetected); Plesiomonas shigelloides PCR Not Detected (NotDetected); Rotavirus A PCR Not Detected (NotDetected); Salmonella PCR Not Detected (NotDetected); Sapovirus PCR Not Detected (NotDetected); Shiga-like Toxin E.coli (STEC) Not Detected (NotDetected); Shigella/Enteroinvasive E.coli Not Detected (NotDetected); Vibrio cholerae PCR Not Detected (NotDetected); Vibrio species PCR Not Detected (NotDetected); Yersinia enterocolitica PCR Not Detected (NotDetected)
[2024-01-02] MEDS: ACETAMINOPHEN 1,000 MG/100 ML VIAL IV STA (21:57)
[2024-01-02 22:02] LABS: Norovirus GI/GII PCR DETECTED (NotDetected)
[2024-01-02] MEDS ORDERED: HYDROmorphone INJ 0.5 MG/0.5 ML SYR IV PRN (22:42)
[2024-01-02] MEDS: METOPROLOL SUCC 25MG EXT REL TAB PO STA (22:46)
[2024-01-02] MEDS ORDERED: hydrOXYzine HCl 10 MG TAB PO PRN (23:16)
[2024-01-02] MEDS ORDERED: LOPERAMIDE HCL 2 MG CAP PO PRN (23:17)
[2024-01-02 23:45] LABS: Base Excess VBG -5.2 mEq/L; HCO3 VBG 21 mmol/L; Oxygen Saturation VBG 76.8 %; PCO2 VBG 40 mmHg (38-50); PO2 VBG 44 mmHg; pH VBG 7.32 (7.36-7.41)
--- NOTE | 2024-01-02 23:50 | CT Scan Report ---
Exam(s): CT HEAD Without Contrast EXAM: CT Head Without Intravenous Contrast CLINICAL HISTORY: Reason for exam: helton, coumadin. TECHNIQUE: Axial computed tomography images of the head/brain without intravenous contrast. Automated exposure control was utilized for the study. A dose lowering technique was utilized adhering to the principles of ALARA. COMPARISON: No relevant prior studies available. FINDINGS: No acute intracranial hemorrhage. No midline shift or mass effect. The territorial sofia-white matter differentiation is maintained throughout. Age-related cerebral volume loss. Periventricular and subcortical white matter hypoattenuation, consistent with chronic microangiopathy. The visualized orbits appear grossly unremarkable. The calvarium is intact. The visualized paranasal sinuses and mastoid air cells are grossly clear. IMPRESSION: No acute intracranial hemorrhage, midline shift, or mass effect. Electronically signed by: Andrew Ramesh MD 01/02/24 23:49 PM
--- NOTE | 2024-01-02 23:53 | History & Physical Report ---
Date of Service January 02, 2024 Assessment & Plan (1) Near syncope: Plan: ARF on CKD Secondary to norovirus diarrheal illness mild AR/TIA/PVD hypertension, erratic BP at the ER, BP currently low hyperlipidemia on statin Rx, history of PE on Coumadin, INR slightly supratherapeutic bronchiectasis on chronic steroid Rx essential tremors/polyneuropathy as per records Steroid-induced hyperglycemia likely prediabetes, hemoglobin A1c of 5.7 from last year hypothyroidism, euthyroid as of today's TSH anxiety/mood disorder, some anxiety during exam from recent personal stressors. OBS Medical telemetry given erratic BP Baseline UA, monitor creatinine response to IVF Hold lisinopril, HCTZ, spironolactone until creatinine back to baseline Update hemoglobin A1c DVT prophylaxis. Coumadin INR goal between 2 and 3 Full code Patient son (Mr. Dami Martines, contact #[phone]) requesting for callback from a.m. provider at 8 AM, 10/7 if possible for update regarding possible patient release from the hospital. Patient would like to be able to attend 's scheduled at 10 AM. Text document was generated using [employer] voice recognition software. It may contain grammatical or spelling errors. Kindly contact undersigned for clarification of any documentation item in question. History of Present Illness Chief Complaint: Abdominal pain, loose stools, near syncope Primary Care Provider: Phil Maldonado MD History obtained from patient, family, and records. Medical history significant for hypertension, hyperlipidemia, mild AR, TIA, PVD, history of PE on Coumadin, bronchiectasis on chronic steroid Rx, hypertension, hyperlipidemia, CRI (baseline creatinine 1.4), GERD, gout, essential tremors, polyneuropathy as per records, hypothyroidism, anxiety/mood disorder. Last confinement August 2022 for TIA symptoms. Patient not feeling well the last few days. recently in the hospital. She was at the viewing today when she experienced achy abdominal pain associated with nausea, and watery loose stools. Patient feels very tired. Achy headache symptoms. Denies chest pain, SOB, unusual cough symptoms. 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 Allergies Allergy/AdvReac Type Severity Reaction Status Date / Time Sulfa (Sulfonamide Allergy Intermediate HIVES Verified 01/02/24 18:24 Antibiotics) azithromycin Allergy Unknown Unknown Unverified 01/02/24 18:24 Home Medications Medication Instructions Recorded Confirmed Type albuterol sulfate 90 mcg/actuation 2 puff inhalation Q6H PRN 02/20/18 01/02/24 History aerosol inhaler Shortness Of Breath Or Wheezing cholecalciferol (vitamin D3) 25 1,000 unit PO QAM 02/20/18 01/02/24 History mcg (1,000 unit) tablet (Vitamin D3) levocetirizine 5 mg tablet (Xyzal) 2.5 mg PO Q OTHER DAY 02/20/18 01/02/24 History metoprolol succinate 25 mg 12.5 mg PO QAM 02/20/18 01/02/24 History tablet,extended release 24 hr (Toprol XL) paroxetine HCl 30 mg tablet (Paxil) 30 mg PO QAM 02/20/18 01/02/24 History pravastatin 10 mg tablet 10 mg PO QPM 02/20/18 01/02/24 History spironolactone 25 mg tablet 25 mg PO QAM 02/20/18 01/02/24 History (Aldactone) lorazepam 1 mg tablet 1 mg PO TID PRN Anxiety 02/24/18 01/02/24 History lisinopril 20 2 tab PO QAM 12/29/18 01/02/24 History mg-hydrochlorothiazide 12.5 mg tablet montelukast 10 mg tablet 10 mg PO PM 12/29/18 01/02/24 History (Singulair) allopurinol 100 mg tablet 200 mg PO QAM 04/14/22 01/02/24 History levothyroxine 75 mcg tablet 75 mcg PO DAILYBB 04/14/22 01/02/24 History warfarin 2.5 mg tablet See Rx Instructions .Route .COMPLEX 04/14/22 01/02/24 History fluticasone fur. 100 mcg-umeclid 1 inh inhalation QAM 07/14/23 01/02/24 History 62.5 mcg-vilant 25 mcg inhalat.powder (Trelegy Ellipta) fluticasone propionate 50 2 spray intranasal QAM PRN 07/14/23 01/02/24 History mcg/actuation nasal Congestion spray,suspension prednisone 2.5 mg tablet 2.5 mg PO QAM 01/02/24 01/02/24 History Past Med/Surg History Problem List (Updated 01/03/24 @ 00:27 by Saul Cadena MD) Near syncope Infection due to Norovirus species (Acute) Colitis (Acute) Syncope and collapse (Acute) Nausea (Acute) Acute generalized abdominal pain (Acute) Movement disorder Cough Stroke-like symptoms (Acute) HTN (hypertension) (Acute) CKD (chronic kidney disease), stage III Costochondritis, acute Hypoxia (Acute) Leukocytosis Shortness of breath (Acute) CKD (chronic kidney disease), stage III History of pulmonary embolism Moderate persistent asthma (Acute) Chest pain (Acute) Hypothyroidism (Chronic) DVT prophylaxis (Acute) IBS (irritable bowel syndrome) (Chronic) History of cholecystectomy (Chronic) Hypertension (Chronic) Medical History CKD (chronic kidney disease), stage III Aneurysm of right renal artery History of pulmonary embolism Chronic gout Dyslipidemia Moderate persistent asthma Hypothyroidism IBS (irritable bowel syndrome) Hypertension Surgical History History of cholecystectomy Family History Father Hypertension Mother Stroke Other Family history non-contributory Social History Smoking Status: Never smoker Second Hand Exposure: Yes; Hx Alcohol Use: No Hx Substance Use: No Preferred Language: Micronesian Communication Ability: Effective [employer] Required: No Beliefs That Will Affect Care: None marital status: Current Living Situation: Spouse current occupational status: retired Feels Safe at Home: Yes Assistive Devices: Cane and Walker Review of Systems Review of Systems: As per HPI, all other systems reviewed and negative Physical Exam Physical Exam: GENERAL: Slightly uncomfortable, slightly anxious, obese, no respiratory distress SKIN: Normal color, warm HEENT: [place] palpebral conjunctivae, no ptosis, dry buccal mucosa NECK : Supple, short neck, no tenderness CHEST : Decreased breath sounds, scattered expiratory wheezes, no tenderness HEART : RRR, no obvious murmurs ABDOMEN: Some distention, nontender EXTREMITIES : Minimal LE swelling, no LE tenderness, no other conspicuous deformities noted NEUROLOGIC : Coherent, no facial asymmetry, no other gross focality Results & Data Results & Data Vital Signs (Past 12 Hours) Vital Signs Temp Pulse Pulse Resp BP BP Pulse Ox 01/02/24 23:00 59 L 17 98/46 L 98 01/02/24 20:07 76 01/02/24 20:00 89 18 177/65 H 93 01/02/24 18:06 78 16 164/71 H 90 01/02/24 15:54 01/02/24 15:44 101 H 01/02/24 15:17 36.6 C 102 H 21 138/75 92 O2 Del Method 01/02/24 23:00 Room Air 01/02/24 20:07 01/02/24 20:00 Room Air 01/02/24 18:06 Room Air 01/02/24 15:54 Room Air 01/02/24 15:44 01/02/24 15:17 Laboratory Results Laboratory Results WBC 13.64 K/ul (4.8-10.8) H 01/02/24 15:40 RBC 4.40 M/uL (4.20-5.40) 01/02/24 15:40 Hgb 14.1 g/dl (12.0-16.0) 01/02/24 15:40 Hct 44.0 % (37.0-47.0) 01/02/24 15:40 MCV 100.0 fL (80.0-100.0) 01/02/24 15:40 MCH 32.0 pg (25.0-34.0) 01/02/24 15:40 MCHC 32.0 g/dL (32.0-36.0) 01/02/24 15:40 RDW Std Deviation 50.6 fL (36.4-46.3) H 01/02/24 15:40 RDW Coeff of Madhuri 13.8 % (11.5-14.5) 01/02/24 15:40 Plt Count 357 K/uL (130-400) 01/02/24 15:40 MPV 11.0 fL (9.4-12.4) 01/02/24 15:40 Immature Gran % (Auto) 0.7 % 01/02/24 15:40 Neut % (Auto) 74.9 % 01/02/24 15:40 Lymph % (Auto) 16.4 % 01/02/24 15:40 [place] % (Auto) 6.2 % 01/02/24 15:40 Eos % (Auto) 1.1 % 01/02/24 15:40 Baso % (Auto) 0.7 % 01/02/24 15:40 Neut # (Auto) 10.20 K/uL (1.40-6.50) H 01/02/24 15:40 Lymph # (Auto) 2.24 K/uL (1.20-3.40) 01/02/24 15:40 [place] # (Auto) 0.85 K/uL (0.11-0.59) H 01/02/24 15:40 Eos # (Auto) 0.15 K/uL (0.00-0.50) 01/02/24 15:40 Baso # (Auto) 0.10 K/uL (0.00-0.20) 01/02/24 15:40 Immature Gran # (Auto) 0.10 K/uL (0.01-0.20) 01/02/24 15:40 PT 32.4 Seconds (9.0-12.0) H 01/02/24 15:40 INR 3.3 (0.9-1.1) H 01/02/24 15:40 VBG pH 7.32 (7.36-7.41) L 01/02/24 23:25 VBG pCO2 40 mmHg (38-50) 01/02/24 23:25 VBG pO2 44 mmHg 01/02/24 23:25 VBG HCO3 21 mmol/L 01/02/24 23:25 VBG O2 Saturation 76.8 % 01/02/24 23:25 VBG Base Excess -5.2 mEq/L 01/02/24 23:25 Sodium 137 mmol/L (136-145) 01/02/24 15:40 Potassium 4.7 mmol/L (3.5-5.1) 01/02/24 15:40 Chloride 105 mmol/L (98-107) 01/02/24 15:40 Carbon Dioxide 20 mmol/L (21-32) L 01/02/24 15:40 Anion Gap 12 (3-11) H 01/02/24 15:40 BUN 30 mg/dl (6-23) H 01/02/24 15:40 Creatinine 1.53 mg/dl (0.6-1.2) H 01/02/24 15:40 Est Cr Clr Drug Dosing 31.2 ml/min 01/02/24 15:40 eGFR 33.98 01/02/24 15:40 BUN/Creatinine Ratio 19.6 (10-20) 01/02/24 15:40 Glucose 158 mg/dl (70-99(Fasting)) H 01/02/24 15:40 Lactate 2.0 mmol/L (0.4-2.0) 01/02/24 23:25 Calcium 9.9 mg/dl (8.6-10.3) 01/02/24 15:40 Magnesium 1.6 mg/dl (1.7-2.4) L 01/02/24 15:40 Total Bilirubin 0.6 mg/dl (0.2-1.0) 01/02/24 15:40 AST 25 U/L (13-39) 01/02/24 15:40 ALT 17 U/L (7-52) 01/02/24 15:40 Alkaline Phosphatase 53 U/L (34-104) 01/02/24 15:40 Troponin I High Sens 11.0 pg/ml (0-14) 01/02/24 15:40 Total Protein 7.1 gm/dl (6.0-8.3) 01/02/24 15:40 Albumin 4.3 gm/dl (3.4-5.0) 01/02/24 15:40 Globulin 2.8 gm/dl (2.5-4.0) 01/02/24 15:40 Albumin/Globulin Ratio 1.5 (0.9-2) 01/02/24 15:40 Lipase 51 U/L (11-82) 01/02/24 15:40 Stl C. cayetanensis PCR Not Detected (NotDetected) 01/02/24 20:23 Stool Rotavirus A PCR Not Detected (NotDetected) 01/02/24 20:23 Stl Adenov F 40/41 PCR Not Detected (NotDetected) 01/02/24 20:23 Stool Astrovirus (PCR) Not Detected (NotDetected) 01/02/24 20:23 Stool Campylobacter PCR Not Detected (NotDetected) 01/02/24 20:23 Stl C. diff Tox B Gene Negative Cdiff Gene (Neg) 01/02/24 20:23 Stool Cryptosporidium PCR Not Detected (NotDetected) 01/02/24 20:23 Stl E.coli Shiga Tox PCR Not Detected (NotDetected) 01/02/24 20:23 Stl Enterotoxigenic E PCR Not Detected (NotDetected) 01/02/24 20:23 Stool EPEC (PCR) Not Detected (NotDetected) 01/02/24 20:23 Stool EAEC (PCR) Not Detected (NotDetected) 01/02/24 20:23 Stl E. histolytica PCR Not Detected (NotDetected) 01/02/24 20:23 Stool Giardia Lamblia PCR Not Detected (NotDetected) 01/02/24 20:23 Stool Salmonella PCR Not Detected (NotDetected) 01/02/24 20:23 Stool Sapovirus (PCR) Not Detected (NotDetected) 01/02/24 20:23 Stl P. shigelloides PCR Not Detected (NotDetected) 01/02/24 20:23 Stl Shigella/EIEC PCR Not Detected (NotDetected) 01/02/24 20:23 St Y.enterocolitica PCR Not Detected (NotDetected) 01/02/24 20:23 Stool Vibrio (PCR) Not Detected (NotDetected) 01/02/24 20:23 Stl Vibrio cholerae PCR Not Detected (NotDetected) 01/02/24 20:23 Stl Norovirus GI/GII PCR DETECTED (NotDetected) A* 01/02/24 20:23 Impressions Abdomen/Pelvis CT 01/02/24 16:03 CT SCAN OF THE ABDOMEN AND PELVIS WITHOUT IV CONTRAST CLINICAL HISTORY: Generalized abdominal pain. COMPARISON STUDY: Abdominal CT dated 02/20/2018. TECHNIQUE: CT scan of the abdomen and pelvis is performed from the lung bases to the proximal femora. Images are reviewed in the axial, sagittal, and coronal planes. IV contrast was not administered for this examination. Note that the examination is suboptimal without oral and IV contrast. A dose lowering technique was utilized adhering to the principles of ALARA. CT DOSE: 1318.52 mGy.cm FINDINGS: Lung bases: The heart is normal in size and without pericardial effusion. The lung bases are clear noting bibasilar scarring/atelectasis. There is mild bilateral lower lobe bronchiectasis. A small hiatal hernia is noted. Liver: The unenhanced liver is normal in size, contour, and attenuation. There is minimal central intrahepatic biliary ductal dilatation. A 1.9 cm right lobe cyst is unchanged. Gallbladder: Surgically absent noting clips in the gallbladder fossa. Spleen: Normal in size and attenuation. Pancreas: Unremarkable. Adrenal glands: Unremarkable. Kidneys: The unenhanced kidneys demonstrate cortical atrophy and are without hydronephrosis. There are no renal calculi identified. Renal sinus cysts are seen bilaterally. There is no evidence of contour deforming renal mass lesion. A 1.6 cm peripherally calcified aneurysm of the right renal artery is unchanged. Abdominal vasculature: The abdominal aorta is normal in course and caliber noting advanced atherosclerotic calcification. Bowel: There is mild colonic diverticulosis without CT evidence of acute diverticulitis. No bowel obstruction is seen. Liquid stool is noted throughout the colon. There is no colonic wall thickening or surrounding inflammation. A duodenal diverticulum is incidentally noted. The appendix is well-visualized and normal. Peritoneum: There is no intraperitoneal free air or abdominal ascites. There is a small fat-containing umbilical hernia. Lymphadenopathy: None. Pelvic viscera: The bladder, uterus, and adnexa are normal as visualized. Skeletal structures: The skeletal structures are osteopenic. There is moderate lumbosacral spondylosis as well as mild scoliosis. No lytic or blastic lesions are seen. IMPRESSION: 1. Liquid stool is seen throughout the colon. Correlate clinically for evidence of a diarrheal illness. 2. Mild colonic diverticulosis without CT evidence of acute diverticulitis. 3. A 1.6 cm partly calcified aneurysm of the right renal artery is unchanged. 4. Additional findings as above. ACT 112: Negative or not required by law. Electronically signed by: Brody Strauss M.D. 01/02/2024 5:30 PM Abdomen CTA 01/02/24 16:53 CT ANGIOGRAM OF THE ABDOMEN CLINICAL HISTORY: Generalized abdominal pain. Elevated lactate. COMPARISON STUDY: Unenhanced abdominal CT performed the same day 01/02/2024. TECHNIQUE: Following the IV administration of 119 cc of Optiray 320, CT angiogram of the abdomen was performed from the lung bases the pelvic inlet. Images are reviewed in the axial, sagittal, and coronal planes. 3-D MIPS images are created and assessed. IV contrast was administered without complication. A dose lowering technique was utilized adhering to the principles of ALARA. CT DOSE: 863.13 mGy.cm FINDINGS: Lower chest: The heart is normal in size and without pericardial effusion. The lung bases are clear noting bibasilar scarring/atelectasis. There is mild bilateral lower lobe bronchiectasis. A small hiatal hernia is noted. Liver: The contrast-enhanced liver is normal in size, contour, and attenuation. There is minimal central intrahepatic biliary ductal dilatation. A 1.9 cm right lobe cyst is unchanged. Gallbladder: Surgically absent noting clips in the gallbladder fossa. Spleen: Normal in size and attenuation noting heterogeneous arterial phase enhancement. Pancreas: Unremarkable. Adrenal glands: Unremarkable. Kidneys: The contrast enhanced kidneys demonstrate cortical atrophy and are without hydronephrosis. Renal sinus cysts are seen bilaterally. The kidneys enhance symmetrically. Abdominal aorta and iliac arteries: The abdominal aorta is normal in course and caliber noting advanced atherosclerotic calcification. The abdominal aorta is widely patent. No dissection is seen. Imaged portions of the common iliac arteries are patent. Major branches of the abdominal aorta: The celiac trunk, superior mesenteric, and inferior mesenteric arteries are widely patent. Hepatic arterial anatomy is conventional. The splenic artery is patent. Single bilateral renal arteries are patent. 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 There is an 0.7 cm aneurysm of the left renal artery. Bowel: Imaged portions of the small bowel and colon show no evidence of obstruction. Liquid stool seen throughout the imaged colon. The wall of the left colon appears mildly thickened and hyperemic. A duodenal diverticulum is incidentally noted. Peritoneum: There is no intraperitoneal free air or abdominal ascites. Lymphadenopathy: None. Skeletal structures: The skeletal structures are osteopenic. There is moderate lumbosacral spondylosis as well as mild scoliosis. No lytic or blastic Lesions are seen. IMPRESSION: 1. Unremarkable CT angiogram of the abdominal aorta and its major branches noting advanced atherosclerotic plaque and irregularity. 2. Findings suggest a diarrheal illness/mild nonspecific colitis of the left colon. Correlate clinically. 3. 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 4. Additional findings as above. ACT 112: Negative or not required by law. Electronically signed by: Brody Strauss M.D. 01/02/2024 7:[address] 01/02/24 21:40 Exam(s): CT HEAD Without Contrast EXAM: CT Head Without Intravenous Contrast CLINICAL HISTORY: Reason for exam: helton, coumadin. TECHNIQUE: Axial computed tomography images of the head/brain without intravenous contrast. Automated exposure control was utilized for the study. A dose lowering technique was utilized adhering to the principles of ALARA. COMPARISON: No relevant prior studies available. FINDINGS: No acute intracranial hemorrhage. No midline shift or mass effect. The territorial sofia-white matter differentiation is maintained throughout. Age-related cerebral volume loss. Periventricular and subcortical white matter hypoattenuation, consistent with chronic microangiopathy. The visualized orbits appear grossly unremarkable. The calvarium is intact. The visualized paranasal sinuses and mastoid air cells are grossly clear. IMPRESSION: No acute intracranial hemorrhage, midline shift, or mass effect. Electronically signed by: Andrew Ramesh MD 01/02/24 23:49 PM Diagnostic Findings EKG as per my interpretation : Rate 105, sinus tachycardia, normal axis, no ischemia
[2024-01-02] MEDS ORDERED: LORazepam 1 MG TAB PO PRN (23:55)
[2024-01-02] MEDS ORDERED: FLUTICASONE PROPIONATE NA SPR 16 GM BTL PRN (23:55)
[2024-01-02] MEDS ORDERED: ALBUT/IPRATROP 3MG/0.5MG NEB 3 ML VIAL NEB PRN (23:57)
[2024-01-03] MEDS: LACTATED RINGER'S 1,000 ML IV ONE (00:32)
[2024-01-03 01:13] LABS: Thyroid Stimulating Hormone 1.25 uIu/ml (0.300-4.500)
[2024-01-03] MEDS ORDERED: dexAMETHasone 4 MG in SYRINGE 0 ML IV ONE (02:18)
[2024-01-03] MEDS: DEXAMETHASONE SOD INJ 4 MG/ML VIAL IV STA (02:41)
[2024-01-03] MEDS: oxyCODONE HCL IR 5 MG TAB (IMMEDIATE RELEASE) PO PRN (02:41)
[2024-01-03 06:34] LABS: Basophils # (auto) 0.03 K/uL (0.00-0.20); Basophils % (auto) 0.3 %; Eosinophils # (auto) 0.03 K/uL (0.00-0.50); Eosinophils % (auto) 0.3 %; Hemoglobin 11.1 g/dl (12.0-16.0); Immature Granulocytes # (auto) 0.05 K/uL (0.01-0.20); Immature Granulocytes % (auto) 0.5 %; Lymphocytes # (auto) 0.74 K/uL (1.20-3.40); Lymphocytes % (auto) 7.1 %; Mean Corpuscular Hemoglobin 31.9 pg (25.0-34.0); Mean Corpuscular Hgb Conc 31.7 g/dL (32.0-36.0); Mean Corpuscular Volume 100.6 fL (80.0-100.0); Mean Platelet Volume 10.4 fL (9.4-12.4); Monocytes % (auto) 1.9 %; Neutrophils # (auto) 9.39 K/uL (1.40-6.50); Neutrophils % (auto) 89.9 %; Platelet Count 265 K/uL (130-400); RDW Coefficient of Variation 13.9 % (11.5-14.5); RDW Standard Deviation 50.6 fL (36.4-46.3); Red Blood Count 3.48 M/uL (4.20-5.40); White Blood Count 10.44 K/ul (4.8-10.8)
[2024-01-03 06:46] LABS: INR 3.4 (0.9-1.1); Prothrombin Time 33.4 Seconds (9.0-12.0)
[2024-01-03 06:47] LABS: BUN Creatinine Ratio 20.4 (10-20); Calcium 8.7 mg/dl (8.6-10.3); Creatinine Clr Calc Pharmacy 31.4 ml/min; Potassium 5.1 mmol/L (3.5-5.1)
[2024-01-03 07:16] LABS: Estimated Average Glucose 114 mg/dl; Hemoglobin A1C 5.6 % (4.5-5.6)
--- NOTE | 2024-01-03 07:47 | XRay Report ---
XR chest 1V portable CLINICAL HISTORY: renal failure TECHNIQUE: Single frontal radiograph of the chest was obtained. Comparison: Comparison is made to chest radiograph 07/14/2023 FINDINGS: No lines and tubes are seen. The cardiomediastinal silhouette is normal. Lungs are underinflated but clear. No evidence of pleural effusion or pneumothorax. IMPRESSION: No acute chest disease. ACT 112: Negative or not required by law. Electronically signed by: Librado Cabral M.D. 01/03/2024 7:46 AM
--- NOTE | 2024-01-03 08:12 | Hospitalist Progress Note ---
Date of Service January 03, 2024 Assessment & Plan (1) Near syncope: Plan: Presyncope Likely secondary to dehydration/hypotension --CT Head:No acute intracranial hemorrhage, midline shift, or mass effect. Blood pressure improved with IV fluids Denies any dizziness today QUINTIN on CKD stage III Received IV fluids Monitor renal function Avoid nephrotoxic agents as able Colitis secondary to norovirus infection --CT ABD:Liquid stool is seen throughout the colon. Correlate clinically for evidence of a diarrheal illness. Mild colonic diverticulosis without CT evidence of acute diverticulitis. -- Diarrhea resolved Conservative management Tolerated diet Loperamide as needed Received IV fluids Stool. C. difficile negative Supratherapeutic INR No bleeding issues currently Hold Coumadin today Hypomagnesemia Replete electrolytes as needed Chronic right renal artery aneurysm --CT:A 1.6 cm partly calcified aneurysm of the right renal artery is unchanged. Follow-up as outpatient Other chronic conditions: Mild AR/TIA/PVD Hypertension--blood pressure improved with IV fluids Hyperlipidemia--continue statin H/O PE on Coumadin--hold Coumadin given supratherapeutic INR Bronchiectasis on chronic steroid Rx--no signs of exacerbation, continue Trelegy Essential tremors/polyneuropathy as per records Steroid-induced hyperglycemia: HbA1c 5.6 Hypothyroidism-continue levothyroxine Gout Anxiety/mood disorder Continue home medications DVT Px: INR supratherapeutic Resume Coumadin as able CODE STATUS Full code Admission and Anticipated Discharge Date Admission Date: January 02, 2024 Subjective Patient is seen and examined at bedside States feeling a lot better today Nausea, abdominal pain, diarrhea resolved Offers no other complaints today Denies any chest pain, dizziness, dyspnea Updated patient's son over the phone Plan to be discharged home today Review of Systems Review of Systems: All systems reviewed & are unremarkable except as noted in Subjective Physical Exam Physical Exam: Physical Exam: Vitals signs as noted above General Appearance:Obese, no apparent distress Head: normocephalic, Atraumatic Eyes: normal inspection, EOMI Neck: supple, Trachea midline Respiratory/Chest: Decreased breath sounds, CTA, No accessory muscle use Cardiovascular: S1, S2, No murmur Abdomen/GI:Soft, Non tender, Bowel sounds present, no guarding or rigidity Extremities/Musculoskeletal:normal inspection, no edema Neurologic/Psych:AAOX3, grossly no focal neurological deficits Skin: normal color, warm Results & Data Results & Data Vital Signs (Past 12 Hours) Vital Signs Pulse Pulse Resp BP Pulse Ox O2 Del Method 01/03/24 01:07 58 L 17 107/47 L 91 Room Air 01/03/24 00:24 56 L 01/02/24 23:00 59 L 17 98/46 L 98 Room Air Laboratory Results Short CBC 01/02/24 01/03/24 Range/Units 15:40 06:08 WBC 13.64 H 10.44 (4.8-10.8) K/ul Hgb 14.1 11.1 L D (12.0-16.0) g/dl Hct 44.0 35.0 L (37.0-47.0) % Plt Count 357 265 (130-400) K/uL BMP 01/02/24 01/03/24 15:40 06:08 Sodium 137 139 Potassium 4.7 5.1 Chloride 105 109 H Carbon Dioxide 20 L 24 BUN 30 H 31 H Creatinine 1.53 H 1.52 H Glucose 158 H 111 H Calcium 9.9 8.7 Liver Function 01/02/24 Range/Units 15:40 Total Bilirubin 0.6 (0.2-1.0) mg/dl AST 25 (13-39) U/L ALT 17 (7-52) U/L Alkaline Phosphatase 53 (34-104) U/L Albumin 4.3 (3.4-5.0) gm/dl Urine 01/03/24 Range/Units 07:41 Urine Color Yellow Urine Appearance Clear (Clear) Urine pH 5.0 (4.5-7.5) Ur Specific [place] > 1.045 H (1.000-1.030) Urine Protein Trace H (Negative) Urine Glucose (UA) Negative (Negative)
[2024-01-03 08:45] LABS: Appearance Urine Clear (Clear); Bacteria Urine Automated None Seen (None Seen); Bilirubin Urine Negative (Negative); Blood Urine Negative (Negative); Color Urine Yellow; Epithelial Cell Urine Auto 0-2 /hpf (0-2); Glucose Urine UA Negative (Negative); Ketones Urine Negative (Negative); Leukocyte Esterase Urine Negative (Negative); Nitrite Urine Negative (Negative); Protein Urine Trace (Negative); RBC Urine Automated 0-2 /hpf (0-2); Specific Gravity Urine > 1.045 (1.000-1.030); Urobilinogen Urine Negative (Negative); WBC Urine Automated 0-5 /hpf (0-5)
[2024-01-03] MEDS ORDERED: NON-FORMULARY MEDICATION (Fluticasone-Umeclidin-Vilanter [Trelegy Ellipta] 100-62.5-25 mcg INH SCH (09:00)
[2024-01-03] MEDS: LEVOTHYROXINE SODIUM 75 MCG TABLET PO SCH (09:08)
[2024-01-03] MEDS: predniSONE 2.5 MG TAB PO SCH (09:08)
[2024-01-03] MEDS: PARoxetine HCL 20 MG TAB PO SCH (09:09)
[2024-01-03] MEDS: allopurinoL 100 MG TAB PO SCH (09:09)
[2024-01-03] MEDS: METOPROLOL SUCC 25MG EXT REL TAB PO SCH (09:15)
[2024-01-03 09:25] VITALS: BP 106/47; PULSE 78; RESP 18; O2SAT 95
[2024-01-03] MEDS: MAGNESIUM CHLORIDE W/CALCIUM 64MG DELAYED REL TAB PO SCH (09:37)
[2024-01-03] MEDS: FLUTICASONE FUROATE 100MCG 14 PUFFS/INHALER INH SCH (09:37)
[2024-01-03] MEDS: UMECLIDINIUM/VILANTEROL 62.5/25MCG 7 PUFFS/INHALER INH SCH (09:37)
--- NOTE | 2024-01-03 12:53 | Discharge Summary ---
Date of Service January 03, 2024 Admission HPI Per Admitting Provider History obtained from patient, family, and records. Medical history significant for hypertension, hyperlipidemia, mild AR, TIA, PVD, history of PE on Coumadin, bronchiectasis on chronic steroid Rx, hypertension, hyperlipidemia, CRI (baseline creatinine 1.4), GERD, gout, essential tremors, polyneuropathy as per records, hypothyroidism, anxiety/mood disorder. Last confinement August 2022 for TIA symptoms. Patient not feeling well the last few days. recently in the hospital. She was at the viewing today when she experienced achy abdominal pain associated with nausea, and watery loose stools. Patient feels very tired. Achy headache symptoms. Denies chest pain, SOB, unusual cough symptoms. 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 Admission Exam Per Admitting Provider GENERAL: Slightly uncomfortable, slightly anxious, obese, no respiratory distress SKIN: Normal color, warm HEENT: [place] palpebral conjunctivae, no ptosis, dry buccal mucosa NECK : Supple, short neck, no tenderness CHEST : Decreased breath sounds, scattered expiratory wheezes, no tenderness HEART : RRR, no obvious murmurs ABDOMEN: Some distention, nontender EXTREMITIES : Minimal LE swelling, no LE tenderness, no other conspicuous deformities noted NEUROLOGIC : Coherent, no facial asymmetry, no other gross focality Principal Diagnosis Near syncope QUINTIN on CKD stage III Norovirus colitis Hypomagnesemia Supratherapeutic INR Dehydration/lactic acidosis Discharge Data Allergies Allergy/AdvReac Type Severity Reaction Status Date / Time Sulfa (Sulfonamide Allergy Intermediate HIVES Verified 01/02/24 18:24 Antibiotics) azithromycin Allergy Unknown Unknown Unverified 01/02/24 18:24 Consultations 01/02/24 20:05 ED Decision to Admit Stat Procedures Performed Laboratory Results WBC 10.44 K/ul (4.8-10.8) 01/03/24 06:08 RBC 3.48 M/uL (4.20-5.40) L 01/03/24 06:08 Hgb 11.1 g/dl (12.0-16.0) L D 01/03/24 06:08 Hct 35.0 % (37.0-47.0) L 01/03/24 06:08 MCV 100.6 fL (80.0-100.0) H 01/03/24 06:08 MCH 31.9 pg (25.0-34.0) 01/03/24 06:08 MCHC 31.7 g/dL (32.0-36.0) L 01/03/24 06:08 RDW Std Deviation 50.6 fL (36.4-46.3) H 01/03/24 06:08 RDW Coeff of Madhuri 13.9 % (11.5-14.5) 01/03/24 06:08 Plt Count 265 K/uL (130-400) 01/03/24 06:08 MPV 10.4 fL (9.4-12.4) 01/03/24 06:08 Immature Gran % (Auto) 0.5 % 01/03/24 06:08 Neut % (Auto) 89.9 % 01/03/24 06:08 Lymph % (Auto) 7.1 % 01/03/24 06:08 [place] % (Auto) 1.9 % 01/03/24 06:08 Eos % (Auto) 0.3 % 01/03/24 06:08 Baso % (Auto) 0.3 % 01/03/24 06:08 Neut # (Auto) 9.39 K/uL (1.40-6.50) H 01/03/24 06:08 Lymph # (Auto) 0.74 K/uL (1.20-3.40) L 01/03/24 06:08 [place] # (Auto) 0.20 K/uL (0.11-0.59) 01/03/24 06:08 Eos # (Auto) 0.03 K/uL (0.00-0.50) 01/03/24 06:08 Baso # (Auto) 0.03 K/uL (0.00-0.20) 01/03/24 06:08 Immature Gran # (Auto) 0.05 K/uL (0.01-0.20) 01/03/24 06:08 PT 33.4 Seconds (9.0-12.0) H 01/03/24 06:08 INR 3.4 (0.9-1.1) H 01/03/24 06:08 VBG pH 7.32 (7.36-7.41) L 01/02/24 23:25 VBG pCO2 40 mmHg (38-50) 01/02/24 23:25 VBG pO2 44 mmHg 01/02/24 23:25 VBG HCO3 21 mmol/L 01/02/24 23:25 VBG O2 Saturation 76.8 % 01/02/24 23:25 VBG Base Excess -5.2 mEq/L 01/02/24 23:25 Sodium 139 mmol/L (136-145) 01/03/24 06:08 Potassium 5.1 mmol/L (3.5-5.1) 01/03/24 06:08 Chloride 109 mmol/L (98-107) H 01/03/24 06:08 Carbon Dioxide 24 mmol/L (21-32) 01/03/24 06:08 Anion Gap 6 (3-11) 01/03/24 06:08 BUN 31 mg/dl (6-23) H 01/03/24 06:08 Creatinine 1.52 mg/dl (0.6-1.2) H 01/03/24 06:08 Est Cr Clr Drug Dosing 31.4 ml/min 01/03/24 06:08 eGFR 34.24 01/03/24 06:08 BUN/Creatinine Ratio 20.4 (10-20) H 01/03/24 06:08 Glucose 111 mg/dl (70-99(Fasting)) H 01/03/24 06:08 Estimat Average Glucose 114 mg/dl 01/02/24 15:40 Hemoglobin A1c 5.6 % (4.5-5.6) 01/02/24 15:40 Lactate 2.0 mmol/L (0.4-2.0) 01/02/24 23:25 Calcium 8.7 mg/dl (8.6-10.3) 01/03/24 06:08 Magnesium 1.6 mg/dl (1.7-2.4) L 01/02/24 15:40 Total Bilirubin 0.6 mg/dl (0.2-1.0) 01/02/24 15:40 AST 25 U/L (13-39) 01/02/24 15:40 ALT 17 U/L (7-52) 01/02/24 15:40 Alkaline Phosphatase 53 U/L (34-104) 01/02/24 15:40 Troponin I High Sens 11.0 pg/ml (0-14) 01/02/24 15:40 Total Protein 7.1 gm/dl (6.0-8.3) 01/02/24 15:40 Albumin 4.3 gm/dl (3.4-5.0) 01/02/24 15:40 Globulin 2.8 gm/dl (2.5-4.0) 01/02/24 15:40 Albumin/Globulin Ratio 1.5 (0.9-2) 01/02/24 15:40 Lipase 51 U/L (11-82) 01/02/24 15:40 TSH 1.250 uIu/ml (0.300-4.500) 01/02/24 15:40 Urine Color Yellow 01/03/24 07:41 Urine Appearance Clear (Clear) 01/03/24 07:41 Urine pH 5.0 (4.5-7.5) 01/03/24 07:41 Ur Specific [place] > 1.045 (1.000-1.030) H 01/03/24 07:41 Urine Protein Trace (Negative) H 01/03/24 07:41 Urine Glucose (UA) Negative (Negative) 01/03/24 07:41 Urine Ketones Negative (Negative) 01/03/24 07:41 Urine Blood Negative (Negative) 01/03/24 07:41 Urine Nitrite Negative (Negative) 01/03/24 07:41 Urine Bilirubin Negative (Negative) 01/03/24 07:41 Urine Urobilinogen Negative (Negative) 01/03/24 07:41 Ur Leukocyte Esterase Negative (Negative) 01/03/24 07:41 Urine WBC (Auto) 0-5 /hpf (0-5) 01/03/24 07:41 Urine RBC (Auto) 0-2 /hpf (0-2) 01/03/24 07:41 U Hyaline Cast (Auto) 11-20 /lpf (0-2) H 01/03/24 07:41 U Epithel Cells (Auto) 0-2 /hpf (0-2) 01/03/24 07:41 Urine Bacteria (Auto) None Seen (None Seen) 01/03/24 07:41 Stl C. cayetanensis PCR Not Detected (NotDetected) 01/02/24 20:23 Stool Rotavirus A PCR Not Detected (NotDetected) 01/02/24 20:23 Stl Adenov F 40/41 PCR Not Detected (NotDetected) 01/02/24 20:23 Stool Astrovirus (PCR) Not Detected (NotDetected) 01/02/24 20:23 Stool Campylobacter PCR Not Detected (NotDetected) 01/02/24 20:23 Stl C. diff Tox B Gene Negative Cdiff Gene (Neg) 01/02/24 20:23 Stool Cryptosporidium PCR Not Detected (NotDetected) 01/02/24 20:23 Stl E.coli Shiga Tox PCR Not Detected (NotDetected) 01/02/24 20:23 Stl Enterotoxigenic E PCR Not Detected (NotDetected) 01/02/24 20:23 Stool EPEC (PCR) Not Detected (NotDetected) 01/02/24 20:23 Stool EAEC (PCR) Not Detected (NotDetected) 01/02/24 20:23 Stl E. histolytica PCR Not Detected (NotDetected) 01/02/24 20:23 Stool Giardia Lamblia PCR Not Detected (NotDetected) 01/02/24 20:23 Stool Salmonella PCR Not Detected (NotDetected) 01/02/24 20:23 Stool Sapovirus (PCR) Not Detected (NotDetected) 01/02/24 20:23 Stl P. shigelloides PCR Not Detected (NotDetected) 01/02/24 20:23 Stl Shigella/EIEC PCR Not Detected (NotDetected) 01/02/24 20:23 St Y.enterocolitica PCR Not Detected (NotDetected) 01/02/24 20:23 Stool Vibrio (PCR) Not Detected (NotDetected) 01/02/24 20:23 Stl Vibrio cholerae PCR Not Detected (NotDetected) 01/02/24 20:23 Stl Norovirus GI/GII PCR DETECTED (NotDetected) A* 01/02/24 20:23 Impressions Abdomen/Pelvis CT 01/02/24 16:03 CT SCAN OF THE ABDOMEN AND PELVIS WITHOUT IV CONTRAST CLINICAL HISTORY: Generalized abdominal pain. COMPARISON STUDY: Abdominal CT dated 02/20/2018. TECHNIQUE: CT scan of the abdomen and pelvis is performed from the lung bases to the proximal femora. Images are reviewed in the axial, sagittal, and coronal planes. IV contrast was not administered for this examination. Note that the examination is suboptimal without oral and IV contrast. A dose lowering technique was utilized adhering to the principles of ALARA. CT DOSE: 1318.52 mGy.cm FINDINGS: Lung bases: The heart is normal in size and without pericardial effusion. The lung bases are clear noting bibasilar scarring/atelectasis. There is mild bilateral lower lobe bronchiectasis. A small hiatal hernia is noted. Liver: The unenhanced liver is normal in size, contour, and attenuation. There is minimal central intrahepatic biliary ductal dilatation. A 1.9 cm right lobe cyst is unchanged. Gallbladder: Surgically absent noting clips in the gallbladder fossa. Spleen: Normal in size and attenuation. Pancreas: Unremarkable. Adrenal glands: Unremarkable. Kidneys: The unenhanced kidneys demonstrate cortical atrophy and are without hydronephrosis. There are no renal calculi identified. Renal sinus cysts are seen bilaterally. There is no evidence of contour deforming renal mass lesion. A 1.6 cm peripherally calcified aneurysm of the right renal artery is unchanged. Abdominal vasculature: The abdominal aorta is normal in course and caliber noting advanced atherosclerotic calcification. Bowel: There is mild colonic diverticulosis without CT evidence of acute diverticulitis. No bowel obstruction is seen. Liquid stool is noted throughout the colon. There is no colonic wall thickening or surrounding inflammation. A duodenal diverticulum is incidentally noted. The appendix is well-visualized and normal. Peritoneum: There is no intraperitoneal free air or abdominal ascites. There is a small fat-containing umbilical hernia. Lymphadenopathy: None. Pelvic viscera: The bladder, uterus, and adnexa are normal as visualized. Skeletal structures: The skeletal structures are osteopenic. There is moderate l umbosacral spondylosis as well as mild scoliosis. No lytic or blastic lesions are seen. IMPRESSION: 1. Liquid stool is seen throughout the colon. Correlate clinically for evidence of a diarrheal illness. 2. Mild colonic diverticulosis without CT evidence of acute diverticulitis. 3. A 1.6 cm partly calcified aneurysm of the right renal artery is unchanged. 4. Additional findings as above. ACT 112: Negative or not required by law. Electronically signed by: Brody Strauss M.D. 01/02/2024 5:30 PM Abdomen CTA 01/02/24 16:53 CT ANGIOGRAM OF THE ABDOMEN CLINICAL HISTORY: Generalized abdominal pain. Elevated lactate. COMPARISON STUDY: Unenhanced abdominal CT performed the same day 01/02/2024. TECHNIQUE: Following the IV administration of 119 cc of Optiray 320, CT angiogram of the abdomen was performed from the lung bases the pelvic inlet. Images are reviewed in the axial, sagittal, and coronal planes. 3-D MIPS images are created and assessed. IV contrast was administered without complication. A dose lowering technique was utilized adhering to the principles of ALARA. CT DOSE: 863.13 mGy.cm FINDINGS: Lower chest: The heart is normal in size and without pericardial effusion. The lung bases are clear noting bibasilar scarring/atelectasis. There is mild bilateral lower lobe bronchiectasis. A small hiatal hernia is noted. Liver: The contrast-enhanced liver is normal in size, contour, and attenuation. There is minimal central intrahepatic biliary ductal dilatation. A 1.9 cm right lobe cyst is unchanged. Gallbladder: Surgically absent noting clips in the gallbladder fossa. Spleen: Normal in size and attenuation noting heterogeneous arterial phase enhancement. Pancreas: Unremarkable. Adrenal glands: Unremarkable. Kidneys: The contrast enhanced kidneys demonstrate cortical atrophy and are without hydronephrosis. Renal sinus cysts are seen bilaterally. The kidneys enhance symmetrically. Abdominal aorta and iliac arteries: The abdominal aorta is normal in course and caliber noting advanced atherosclerotic calcification. The abdominal aorta is widely patent. No dissection is seen. Imaged portions of the common iliac arteries are patent. Major branches of the abdominal aorta: The celiac trunk, superior mesenteric, and inferior mesenteric arteries are widely patent. Hepatic arterial anatomy is conventional. The splenic artery is patent. Single bilateral renal arteries are patent. 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 There is an 0.7 cm aneurysm of the left renal artery. Bowel: Imaged portions of the small bowel and colon show no evidence of obstruction. Liquid stool seen throughout the imaged colon. The wall of the left colon appears mildly thickened and hyperemic. A duodenal diverticulum is incidentally noted. Peritoneum: There is no intraperitoneal free air or abdominal ascites. Lymphadenopathy: None. Skeletal structures: The skeletal structures are osteopenic. There is moderate lumbosacral spondylosis as well as mild scoliosis. No lytic or blastic Lesions are seen. IMPRESSION: 1. Unremarkable CT angiogram of the abdominal aorta and its major branches noting advanced atherosclerotic plaque and irregularity. 2. Findings suggest a diarrheal illness/mild nonspecific colitis of the left colon. Correlate clinically. 3. 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 4. Additional findings as above. ACT 112: Negative or not required by law. Electronically signed by: Brody Strauss M.D. 01/02/2024 7:41 PM Chest X-Ray 01/02/24 20:11 XR chest 1V portable CLINICAL HISTORY: renal failure TECHNIQUE: Single frontal radiograph of the chest was obtained. Comparison: Comparison is made to chest radiograph 07/14/2023 FINDINGS: No lines and tubes are seen. The cardiomediastinal silhouette is normal. Lungs are underinflated but clear. No evidence of pleural effusion or pneumothorax. IMPRESSION: No acute chest disease. ACT 112: Negative or not required by law. Electronically signed by: Librado Cabral M.D. 01/03/2024 7:[address] 01/02/24 21:40 Exam(s): CT HEAD Without Contrast EXAM: CT Head Without Intravenous Contrast CLINICAL HISTORY: Reason for exam: [place], coumadin. TECHNIQUE: Axial computed tomography images of the head/brain without intravenous contrast. Automated exposure control was utilized for the study. A dose lowering technique was utilized adhering to the principles of ALARA. COMPARISON: No relevant prior studies available. FINDINGS: No acute intracranial hemorrhage. No midline shift or mass effect. The territorial sofia-white matter differentiation is maintained throughout. Age-related cerebral volume loss. Periventricular and subcortical white matter hypoattenuation, consistent with chronic microangiopathy. The visualized orbits appear grossly unremarkable. The calvarium is intact. The visualized paranasal sinuses and mastoid air cells are grossly clear. IMPRESSION: No acute intracranial hemorrhage, midline shift, or mass effect. Electronically signed by: Andrew Ramesh MD 01/02/24 23:49 PM Ordered Studies 01/02/24 16:03 CT abd pelvis wo con Stat 01/02/24 16:53 CT angio abdomen w con Stat 01/02/24 21:40 CT head/brain wo con Stat Hospital Course (1) Near syncope: Presyncope Likely secondary to dehydration/hypotension --CT Head:No acute intracranial hemorrhage, midline shift, or mass effect. Blood pressure improved with IV fluids Denies any dizziness today QUINTIN on CKD stage III Received IV fluids Monitor renal function Avoid nephrotoxic agents as able Colitis secondary to norovirus infection --CT ABD:Liquid stool is seen throughout the colon. Correlate clinically for evidence of a diarrheal illness. Mild colonic diverticulosis without CT evidence of acute diverticulitis. -- Diarrhea resolved Conservative management Tolerated diet Loperamide as needed Received IV fluids Stool. C. difficile negative Supratherapeutic INR No bleeding issues currently Hold Coumadin today Hypomagnesemia Replete electrolytes as needed Chronic right renal artery aneurysm --CT:A 1.6 cm partly calcified aneurysm of the right renal artery is unchanged. Follow-up as outpatient Other chronic conditions: Mild AR/TIA/PVD Hypertension--blood pressure improved with IV fluids Hyperlipidemia--continue statin H/O PE on Coumadin--hold Coumadin given supratherapeutic INR Bronchiectasis on chronic steroid Rx--no signs of exacerbation, continue Trelegy Essential tremors/polyneuropathy as per records Steroid-induced hyperglycemia: HbA1c 5.6 Hypothyroidism-continue levothyroxine Gout Anxiety/mood disorder Continue home medications DVT Px: INR supratherapeutic Resume Coumadin as able CODE STATUS Full code Total Time Total Time Spent Total Time Spent (In Minutes): 55 minutes Discharge Plan Discharge Items Patient Disposition: Home - Self-Care Reason For Visit: NEAR SYNCOPE Discharge Diagnosis: Near syncope QUINTIN on CKD stage III Norovirus colitis Hypomagnesemia Supratherapeutic INR Dehydration/lactic acidosis Activity: Per Instructions section Exercise/Sports: Wait until after follow-up appointment Non-emergency contact: Primary Care Provider and Specialist Call non-emergency contact if: you have any medication questions, your symptoms worsen, your pain is concerning for you and you have a fever Follow-up/Referrals: Phil Maldonado MD [Primary Care Provider] - (Date & Time 01/07/2024 9:00 AM Provider Huma Medina MD Department General Internal Medicine [facility] ) Diet: Heart Healthy Addtl Attending Provider Instructions: Follow-up with your primary care physician in 1 week Follow-up with your primary care physician/Coumadin clinic in 2-3 days for monitoring your PT/INR and adjusting your Coumadin dose as needed --Hold taking your lisinopril/hydrochlorothiazide, spironolactone for 2 days until your diarrhea resolves and your blood pressure improves. Monitor your blood pressure regularly as advised. -- Hold taking warfarin(Coumadin) for 2 days given your INR is elevated. Follow-up with your PCP for further instructions with repeat PT/INR in 2 days -- Keep yourself hydrated with increased oral fluid intake. --Get blood test (basic metabolic panel, Magnesium levels) in 1 week and follow- up with your primary care physician with results --Your allopurinol dose may need to be adjusted based on your renal function on repeat blood work as outpatient --Can use Loperamide as needed for diarrhea. Seek immediate medical attention if your symptoms reoccur or worsen Please take all medications as instructed on discharge list below. Please call if you have any questions or problems. You can reach a [facility] hospitalist on duty at [facility] 24 hours a day by calling [phone] Pending Studies at Discharge: No Stand-Alone Forms: My [facility], Smoking Cessation Medications and DC Order Prescriptions: New magnesium chloride [Mag 64] 64 mg Tablet,Delayed Release (Dr/Ec) 64 mg PO BID Qty: 10 0RF loperamide 2 mg Capsule 2 mg PO Q8H PRN (Reason: loose stool) Qty: 10 0RF Continued pravastatin 10 mg tablet 10 mg PO QPM paroxetine HCl [Paxil] 30 mg tablet 30 mg PO QAM albuterol sulfate 90 mcg/actuation Hfa Aerosol Inhaler 2 puff INHALATION Q6H PRN (Reason: Shortness Of Breath Or Wheezing) cholecalciferol (vitamin D3) [Vitamin D3] 1,000 unit Tablet 1,000 unit PO QAM levocetirizine [Xyzal] 5 mg tablet 2.5 mg PO Q OTHER DAY metoprolol succinate [Toprol XL] 25 mg Tablet Extended Release 24 Hr 12.5 mg PO QAM lorazepam 1 mg tablet 1 mg PO TID PRN (Reason: Anxiety) montelukast [Singulair] 10 mg Tablet 10 mg PO PM allopurinol 100 mg tablet 200 mg PO QAM levothyroxine 75 mcg tablet 75 mcg PO DAILYBB prednisone 2.5 mg tablet 2.5 mg PO QAM fluticasone propionate 50 mcg/actuation spray,suspension 2 spray INTRANASAL QAM PRN (Reason: Congestion) Michel Ellipta 100-62.5-25 mcg blister with device 1 inh INHALATION QAM Held spironolactone [Aldactone] 25 mg tablet 25 mg PO QAM Hold Instructions: Hold for 2 days until your blood pressures improves/diarrhea resolves lisinopril-hydrochlorothiazide 20-12.5 mg Tablet 2 tab PO QAM Hold Instructions: Hold for 2 days until your blood pressures improves/diarrhea resolves warfarin 2.5 mg tablet See Rx Instructions .ROUTE .COMPLEX Hold Instructions: Hold today and tomorrow. Follow up with your doctor for further instructions Rx Instructions: TAKES 2.5 MG ON SUN, TU, WED, FRI, SAT. THEN 1.25 MG ON MON/THURS. Takes medication at night Discharge Orders: Discharge Order (Routine); Ordered 01/03/24 Ordered By: Isrrael Armstrong Admission Data Admit Date/Time: 01/02/24 23:54 Attending Provider: Isrrael Armstrong Admit Provider: Saul Cadena Primary Care Provider: Phil Maldonado Other Providers: Saul Cadena Other Interventions: Discharge Summary Assessment (RN) Last Done: 01/03/24 10:02
--- NOTE | 2024-01-03 15:22 | Electrocardiogram Report ---
Test Reason : Blood Pressure : */* mmHG Vent. Rate : 105 BPM Atrial Rate : 105 BPM P-R Int : 176 ms QRS Dur : 72 ms QT Int : 330 ms P-R-T Axes : 31 35 41 degrees QTcB Int : 436 ms Sinus tachycardia with occasional Premature ventricular complexes Low voltage QRS Borderline ECG When compared with ECG of 14-Jul-2023 13:23, Premature ventricular complexes are now Present Confirmed by Jairo Retana ([id number]) on 01/03/2024 3:21:58 PM Referred By: REFERRED SELF Confirmed By: Jairo Retana
[2024-01-03] MEDS ORDERED: MONTELUKAST SODIUM 10 MG TABLET PO SCH (21:00)
[2024-01-03] MEDS ORDERED: PRAVASTATIN SOD 10 MG TAB PO SCH (21:00)
[2024-01-04] MEDS ORDERED: CETIRIZINE HCL 10 MG TABLET PO SCH (09:00)
== END 2024-01-03 10:00 | disposition home or self-care (01) ==
LOC: ED 15:26 → EDINP 15:26 → SUATTDRO 23:54 → EDINP 01-03 00:39

== ENCOUNTER 2024-10-15 00:25 | Inpatient (IN) ==
[2024-10-15] MEDS: KETOROLAC TROMETHAMINE 15 MG/ML VIAL IV STA (01:14)
[2024-10-15 01:22] LABS: Hematocrit (blood only) 35.7 % (37.0-47.0); Hemoglobin 11.4 g/dl (12.0-16.0); Immature Granulocytes # (auto) 0.03 K/uL (0.01-0.20); Immature Granulocytes % (auto) 0.3 %; Mean Corpuscular Hemoglobin 32.1 pg (25.0-34.0); Mean Corpuscular Volume 100.6 fL (80.0-100.0); Platelet Count 294 K/uL (130-400); RDW Standard Deviation 50.4 fL (36.4-46.3); Red Blood Count 3.55 M/uL (4.20-5.40); White Blood Count 9.06 K/ul (4.8-10.8)
--- NOTE | 2024-10-15 01:32 | Emergency Department Note ---
Impression & Plan Acute pain of left hip, Ambulatory dysfunction the patient will be evaluated by the [facility] for further inpatient care ED Provider Note NAME: ZOYA GILL AGE: 84 SEX: Female INFORMANT: Patient ED PROVIDER(S): Dixie Varghese DO CHIEF COMPLAINT: left hip pain PLAN: Disposition: Admit to the [facility] MEDICAL DECISION MAKING: this is an 84-year-old female patient presents to the emergency department with a sudden onset of left hip pain around 3 PM this afternoon. She tried taking Tylenol and using a lidocaine patch without relief of her symptoms. The discomfort seemed to worsen. EMS was called and she was treated with morphine and Zofran which gave her some relief of her discomfort. On my evaluation, the patient is still fairly uncomfortable. She was given a dose of IV Toradol which again gave her some mild relief of her discomfort. Laboratory studies revealed no leukocytosis. Hemoglobin was 11.4 which is baseline for the patient. Her INR is 2.1. BUN was 38 and creatinine was 1.5. CRP was 1.05 and sed rate was 36. Uric acid was normal. X-ray of the left hip and pelvis were obtained which revealed questionable bone fragment near the left acetabulum. Patient denies any acute traumatic injury. In fact, she was out shopping earlier in the day with no difficulties at all. The patient has been seen previously by hematology through [facility] for a multiple myeloma workup. They felt the likelihood of this was unlikely. A recent CRP was 9 approximately 3 months ago. Nursing staff attempted to ambulate the patient in preparation for discharge, the pain in the left hip and thigh escalated again and the patient became quite dizzy upon trying to stand. She felt unsafe to be discharged. Care/management discussed with: manager managing and [facility] Hospitalist Triage Nursing notes: reviewed and agree with them. Vital Signs: reviewed and remarkable fo hypoxia. The patient was thought to be hypoxic secondary to the morphine that was administered by EMS Prior/ Outside/ External records reviewed: I did review hematology notes in the [facility] system Differential Diagnosis: Occult fracture to the left hip/pelvis, septic arthritis, gout, osteoarthritis, sciatica, lumbar radiculopathy, iliotibial band syndrome Diagnostics, independently interpreted by me: Imaging studies: Left hip/pelvis x-ray: As per [facility] HPI: 84 year old Female arrives for evaluation of Left hip pain. resents to the emergency department with a sudden onset of left hip pain around 3 PM this afternoon. She tried taking Tylenol and using a lidocaine patch without relief of her symptoms. The discomfort seemed to worsen. EMS was called and she was treated with morphine and Zofran which gave her some relief of her discomfort. PAST MEDICAL HISTORY: See Below, PAST SURGICAL HISTORY: See Below, SOCIAL HISTORY: See Below, HOME MEDICATIONS: see list ALLERGIES: see list VITALS: See Below PHYSICAL EXAMINATION: HEENT: Head - normocephalic and atraumatic. Pupils are equal, round, and reactive to light. Extraocular eye muscles are intact, and sclera are anicteric. Nose - moist nasal mucosa without discharge. Mouth - moist buccal mucosa. Oropharynx is nonerythematous and there is no tonsillar exudate or edema noted. Neck: Supple; no JVD or cervical lymphadenopathy Heart: Regular rate and rhythm. There is a normal S1 and S2 with no murmurs, clicks, or gallops appreciated. Lungs: Clear to auscultation bilaterally with no wheezes, rales, or rhonchi. Abdomen: Soft, completely nontender, nondistended, with good bowel sounds. There are no palpable pulsatile masses or hepatosplenomegaly. There is no guarding, rigidity, or rebound noted. Extremities: Reproducible discomfort with palpation over the left ASIS and extending down into the left lateral hip and lateral thigh. Skin: warm and dry with good turgor and no rashes. Emergency Department treatment: surveillance system monitor, IV Toradol Emergency Department course: The patient was evaluated in room A-10. A complete history and physical was performed. Laboratory studies were drawn as above. The patient was medicated with IV Toradol. Records in the [facility] system were reviewed. Plain films of the left hip were obtained. Nursing staff attempted to ambulate the patient but she felt unsteady on her feet and the pain returned. I discussed the case with the [facility] Hospitalist and they will evaluate for further inpatient care. Past Med/Surg History Problem List (Updated 10/15/24 @ 07:36 by Dixie Varghese DO) Ambulatory dysfunction (Acute) Acute pain of left hip (Acute) Acute pain of left hip Near syncope Infection due to Norovirus species (Acute) Colitis (Acute) Syncope and collapse (Acute) Nausea (Acute) Acute generalized abdominal pain (Acute) Movement disorder Cough Stroke-like symptoms (Acute) HTN (hypertension) (Acute) CKD (chronic kidney disease), stage III Costochondritis, acute Hypoxia (Acute) Leukocytosis Shortness of breath (Acute) CKD (chronic kidney disease), stage III History of pulmonary embolism Moderate persistent asthma (Acute) Chest pain (Acute) Hypothyroidism (Chronic) DVT prophylaxis (Acute) IBS (irritable bowel syndrome) (Chronic) History of cholecystectomy (Chronic) Hypertension (Chronic) Medical History CKD (chronic kidney disease), stage III Aneurysm of right renal artery History of pulmonary embolism Chronic gout Dyslipidemia Moderate persistent asthma Hypothyroidism IBS (irritable bowel syndrome) Hypertension Surgical History History of cholecystectomy Family History Father Hypertension Mother Stroke Other Family history non-contributory Social History Smoking Status: Never smoker Second Hand Exposure: No; Hx Alcohol Use: No Hx Substance Use: No Preferred Language: Serbian Communication Ability: Effective Metal Handler Required: No Beliefs That Will Affect Care: None marital status: Current Living Situation: Alone current occupational status: retired Other Information That Helps Us Care for You: No Feels Safe at Home: Yes Safety Concerns: Feels Safe At This Time Assistive Devices: None Allergies Allergies Allergy/AdvReac Type Severity Reaction Status Date / Time Sulfa (Sulfonamide Allergy Intermediate HIVES Verified 01/02/24 18:24 Antibiotics) azithromycin Allergy Unknown Unknown Unverified 01/02/24 18:24 Home Meds Home Medications Medication Instructions Recorded Confirmed albuterol sulfate 90 mcg/actuation 2 puff inhalation Q6H PRN 02/20/18 10/15/24 aerosol inhaler Shortness Of Breath Or Wheezing cholecalciferol (vitamin D3) 25 1,000 unit PO QAM 02/20/18 10/15/24 mcg (1,000 unit) tablet (Vitamin D3) levocetirizine 5 mg tablet (Xyzal) 2.5 mg PO Q OTHER DAY 02/20/18 10/15/24 metoprolol succinate 25 mg 12.5 mg PO QAM 02/20/18 10/15/24 tablet,extended release 24 hr (Toprol XL) paroxetine HCl 30 mg tablet (Paxil) 30 mg PO QAM 02/20/18 10/15/24 pravastatin 10 mg tablet 10 mg PO QPM 02/20/18 10/15/24 spironolactone 25 mg tablet 25 mg PO QAM 02/20/18 10/15/24 (Aldactone) lisinopril 20 2 tab PO QAM 12/29/18 10/15/24 mg-hydrochlorothiazide 12.5 mg tablet montelukast 10 mg tablet 10 mg PO PM 12/29/18 10/15/24 (Singulair) allopurinol 100 mg tablet 200 mg PO QAM 04/14/22 10/15/24 levothyroxine 75 mcg tablet 75 mcg PO DAILYBB 04/14/22 10/15/24 warfarin 2.5 mg tablet See Rx Instructions .Route .COMPLEX 04/14/22 10/15/24 prednisone 2.5 mg tablet 2.5 mg PO QAM 01/02/24 10/15/24 Results & Data (ED) Vital Signs Vital Signs - 24 hr 10/15/24 00:27 10/15/24 00:31 10/15/24 00:36 Temperature 36.7 C Temperature Source Oral Pulse Rate 60 61 Pulse Rate [Apical] Respiratory Rate 14 Respiratory Effort / Characteristics Non-Labored Spontaneous Respiratory Depth Normal Respiratory Pattern Regular Blood Pressure 154/58 H Blood Pressure [Right Arm] Blood Pressure Mean 90 Blood Pressure Mean [Right Arm] Blood Pressure Position Semi-fowlers Blood Pressure Position [Right Arm] Pulse Oximetry 92 87 L Oxygen Delivery Method Room Air Nasal Cannula Oxygen Flow Rate 0 Sepsis Recent Fever Within 48 Hours No Sepsis New/Unexplained Change in Mental Status No Sepsis Action Taken by Nursing No Action Required Oxygen Flow Rate - Titration 2 Pulse Oximetry Post Tiitration 92 10/15/24 02:33 10/15/24 02:34 10/15/24 03:08 Temperature Temperature Source Pulse Rate Pulse Rate [Apical] 61 Respiratory Rate 14 Respiratory Effort / Characteristics Non-Labored Spontaneous Respiratory Depth Normal Respiratory Pattern Regular Blood Pressure Blood Pressure [Right Arm] 126/50 L Blood Pressure Mean Blood Pressure Mean [Right Arm] 75 Blood Pressure Position Blood Pressure Position [Right Arm] Semi-fowlers Pulse Oximetry 98 97 89 L Oxygen Delivery Method Room Air Room Air Nasal Cannula Oxygen Flow Rate 2 0 Sepsis Recent Fever Within 48 Hours Sepsis New/Unexplained Change in Mental Status Sepsis Action Taken by Nursing Oxygen Flow Rate - Titration 0 2 Pulse Oximetry Post Tiitration 96 96 10/15/24 04:11 10/15/24 04:11 10/15/24 04:23 Temperature Temperature Source Pulse Rate 58 L Pulse Rate [Apical] 57 L Respiratory Rate 20 Respiratory Effort / Characteristics Non-Labored Spontaneous Respiratory Depth Normal Respiratory Pattern Regular Blood Pressure Blood Pressure [Right Arm] 166/58 H Blood Pressure Mean Blood Pressure Mean [Right Arm] 94 Blood Pressure Position Blood Pressure Position [Right Arm] Semi-fowlers Pulse Oximetry 98 96 Oxygen Delivery Method Room Air Oxygen Flow Rate 2 Sepsis Recent Fever Within 48 Hours Sepsis New/Unexplained Change in Mental Status Sepsis Action Taken by Nursing Oxygen Flow Rate - Titration 0 Pulse Oximetry Post Tiitration 95 Laboratory Data 10/15/24 00:37 10/15/24 00:37 Lab Results 10/15/24 Range/Units 00:37 WBC 9.06 (4.8-10.8) K/ul RBC 3.55 L (4.20-5.40) M/uL Hgb 11.4 L (12.0-16.0) g/dl Hct 35.7 L (37.0-47.0) % MCV 100.6 H (80.0-100.0) fL MCH 32.1 (25.0-34.0) pg MCHC 31.9 L (32.0-36.0) g/dL RDW Std Deviation 50.4 H (36.4-46.3) fL RDW Coeff of Madhuri 13.6 (11.5-14.5) % Plt Count 294 (130-400) K/uL MPV 11.2 (9.4-12.4) fL Immature Gran % (Auto) 0.3 % Neut % (Auto) 61.6 % Lymph % (Auto) 27.2 % [place] % (Auto) 8.1 % Eos % (Auto) 2.0 % Baso % (Auto) 0.8 % Neut # (Auto) 5.59 (1.40-6.50) K/uL Lymph # (Auto) 2.46 (1.20-3.40) K/uL [place] # (Auto) 0.73 H (0.11-0.59) K/uL Eos # (Auto) 0.18 (0.00-0.50) K/uL Baso # (Auto) 0.07 (0.00-0.20) K/uL Immature Gran # (Auto) 0.03 (0.01-0.20) K/uL ESR 36 H (0-30) mm/hr PT 21.7 H (9.0-12.0) Seconds INR 2.1 H (0.9-1.1) Sodium 138 (136-145) mmol/L Potassium 4.5 (3.5-5.1) mmol/L Chloride 107 (98-107) mmol/L Carbon Dioxide 26 (21-32) mmol/L Anion Gap 5 (3-11) BUN 38 H (6-23) mg/dl Creatinine 1.50 H (0.6-1.2) mg/dl Est Cr Clr Drug Dosing 31.1 ml/min eGFR 34.58 BUN/Creatinine Ratio 25.3 H (10-20) Glucose 104 H (70-99(Fasting)) mg/dl Uric Acid 4.4 (2.6-7.2) mg/dl Calcium 8.5 L (8.6-10.3) mg/dl Total Bilirubin 0.3 (0.2-1.0) mg/dl AST 19 (13-39) U/L ALT 13 (7-52) U/L Alkaline Phosphatase 49 (34-104) U/L C-Reactive Protein 1.05 H (0-0.5) mg/dl Total Protein 6.3 (6.0-8.3) gm/dl Albumin 3.8 (3.4-5.0) gm/dl Globulin 2.5 (2.5-4.0) gm/dl Albumin/Globulin Ratio 1.5 (0.9-2) Administered Medications Acetaminophen (Acetaminophen 325 Mg Tab) 650 mg PO Q6H DEANNE Stop: 11/14/24 10:59 Last Admin: 10/15/24 12:00 Dose: 650 mg Documented By: ALEJANDRO Allopurinol (Allopurinol 100 Mg Tab) 200 mg PO QA DEANNE Stop: 11/14/24 08:59 Last Admin: 10/15/24 09:50 Dose: 200 mg Documented By: ALEJANDRO Cetirizine HCl (Cetirizine Hcl 10 Mg Tablet) 5 mg PO Q2D@0900 [facility] Stop: 11/14/24 08:59 Last Admin: 10/15/24 09:51 Dose: 5 mg Documented By: ALEJANDRO Lisinopril/HCTZ (Lisinopril/Hctz 20/12.5mg 1 Tab Tab) 2 tab PO [facility] Stop: 11/14/24 08:59 Last Admin: 10/15/24 09:51 Dose: 2 tab Documented By: ALEJANDRO Levothyroxine Sodium (Levothyroxine Sodium 75 Mcg Tablet) [facility] Stop: 11/14/24 08:59 Last Admin: 10/15/24 09:51 Dose: 75 mcg Documented By: ALEJANDRO Metoprolol Succinate (Metoprolol Succ 25mg Ext Rel Tab) 12.5 mg PO [facility] Stop: 11/14/24 08:59 Last Admin: 10/15/24 09:53 Dose: Not Given Documented By: ALEJANDRO Paroxetine HCl (Paroxetine Hcl 20 Mg Tab) 30 mg PO [facility] Stop: 11/14/24 08:59 Last Admin: 10/15/24 09:53 Dose: 30 mg Documented By: ALEJANDRO Prednisone (Prednisone 2.5 Mg Tab) 2.5 mg PO [facility] Stop: 11/14/24 08:59 Last Admin: 10/15/24 09:54 Dose: 2.5 mg Documented By: ALEJANDRO Spironolactone (Spironolactone 25 Mg Tab) 25 mg PO [facility] Stop: 11/14/24 08:59 Last Admin: 10/15/24 09:54 Dose: 25 mg Documented By: ALEJANDRO Vitamin D (Cholecalciferol 25 Mcg (1000 Units) Tab) 25 mcg PO [facility] Stop: 11/14/24 08:59 Last Admin: 10/15/24 09:51 Dose: 25 mcg Documented By: ALEJANDRO Discontinued Medications Hydromorphone HCl (Hydromorphone Inj 0.5 Mg/0.5 Ml Syr) 0.5 mg IV Q6H PRN PRN Reason: Severe Pain (Scale 7, 8, 9,10) Stop: 10/29/24 08:44 Last Admin: 10/15/24 10:08 Dose: 0.5 mg Documented By: ALEJANDRO Acetaminophen (Ofirmev) 1,000 mg in 100 mls @ 400 mls/hr IV NOW STA Stop: 10/15/24 05:27 Last Infusion: 10/15/24 05:57 Dose: Infused Documented By: Admin: 10/15/24 05:27 Dose: 400 mls/hr Documented By: ADA Ketorolac Tromethamine (Ketorolac Tromethamine 15 Mg/Ml Vial) 15 mg IV NOW STA Stop: 10/15/24 01:10 Last Admin: 10/15/24 01:14 Dose: 15 mg Documented By: ADA Imaging Data Radiologist's Impression: Hip/Pelvis X-Ray 10/15/24 01:09 EXAM: XR hip LT 2V w pelvis CLINICAL HISTORY: Pain TECHNIQUE: X-ray images of the left hip joints in AP and lateral projections with pelvis AP view. COMPARISON: No prior studies available for comparison. FINDINGS: Hip Joints: Narrowed hip joint, subchondral sclerosis with multiple osteophytes. Small bone fragment seen adjacent to the tip of the roof of the left acetabulum; detached osteophytes No evidence of hip dislocation or subluxation. Bilateral sacroilitis. Symphysis Pubis: Symphysis pubis is normal and intact. No evidence of separation or widening. Soft Tissues: Visualized soft tissues are normal and unremarkable. No soft tissue swelling, calcifications, or masses. Additional Findings: No other significant abnormalities were noted. IMPRESSION: 1. Small bone fragment seen adjacent to the tip of the roof of the left acetabulum; detached/ fractured osteophyte/accessory ossicle. Advise clinical correlation and follow-up. 2. Osteoarthritic changes of the left hip joint. 3. Bilateral sacroilitis. Disclaimer: A subtle bone abnormality or fracture may not be readily apparent on X-rays, thus clinical correlation and further imaging including follow-up CT, MRI, or follow-up X-rays are advised as needed. Electronically signed by Ar Woodall 10-15-2024 05:10 AM Discharge Plan Visit Data Chief Complaint: Hip Pain Stated Complaint: HIP PAIN SINCE 1500, NO TRAUMA OR FALLS ED Provider: Dixie Varghese Discharge Problem: Acute pain of left hip, Ambulatory dysfunction Patient Disposition: Admitted As Inpatient Condition: Fair Discharge Instructions Interventions: ED Discharge Assessment Last Done: 10/15/24 08:10
[2024-10-15 01:33] LABS: Alanine Aminotransferase 13.0 U/L (7-52); Albumin Globulin Ratio 1.5 (0.9-2); Alkaline Phosphatase 49.0 U/L (34-104); Anion Gap 5.0 (3-11); Bilirubin,Total 0.3 mg/dl (0.2-1.0); Blood Urea Nitrogen 38.0 mg/dl (6-23); Calcium 8.5 mg/dl (8.6-10.3); Carbon Dioxide 26.0 mmol/L (21-32); Chloride 107.0 mmol/L (98-107); Creatinine Clr Calc Pharmacy 31.1 ml/min; Globulin 2.5 gm/dl (2.5-4.0); Glucose 104.0 mg/dl (70-99(Fasting)); INR 2.1 (0.9-1.1); Potassium 4.5 mmol/L (3.5-5.1); Prothrombin Time 21.7 Seconds (9.0-12.0); Sodium 138.0 mmol/L (136-145); Total Protein 6.3 gm/dl (6.0-8.3)
[2024-10-15 02:33] LABS: Uric Acid 4.4 mg/dl (2.6-7.2)
--- NOTE | 2024-10-15 05:10 | XRay Report ---
EXAM: XR hip LT 2V w pelvis CLINICAL HISTORY: Pain TECHNIQUE: X-ray images of the left hip joints in AP and lateral projections with pelvis AP view. COMPARISON: No prior studies available for comparison. FINDINGS: Hip Joints: Narrowed hip joint, subchondral sclerosis with multiple osteophytes. Small bone fragment seen adjacent to the tip of the roof of the left acetabulum; detached osteophytes No evidence of hip dislocation or subluxation. Bilateral sacroilitis. Symphysis Pubis: Symphysis pubis is normal and intact. No evidence of separation or widening. Soft Tissues: Visualized soft tissues are normal and unremarkable. No soft tissue swelling, calcifications, or masses. Additional Findings: No other significant abnormalities were noted. IMPRESSION: 1. Small bone fragment seen adjacent to the tip of the roof of the left acetabulum; detached/ fractured osteophyte/accessory ossicle. Advise clinical correlation and follow-up. 2. Osteoarthritic changes of the left hip joint. 3. Bilateral sacroilitis. Disclaimer: A subtle bone abnormality or fracture may not be readily apparent on X-rays, thus clinical correlation and further imaging including follow-up CT, MRI, or follow-up X-rays are advised as needed. Electronically signed by Ar Woodall 10-15-2024 05:10 AM
[2024-10-15] MEDS: ACETAMINOPHEN 1,000 MG/100 ML VIAL IV STA (05:27)
--- NOTE | 2024-10-15 05:35 | History & Physical Report ---
Date of Service October 15, 2024 Assessment & Plan (1) Acute pain of left hip: Plan: 84-year-old female with past medical history significant for dyslipidemia, hypothyroidism, chronic gout of left ankle, chronic rhinitis, vocal cord dysfunction, moderate persistent asthma without complication, lung nodules, chronic cough, bronchiectasis, renal artery aneurysm, hypertension, mild aortic regurgitation, irritable bowel syndrome with diarrhea, GERD, CKD stage III, essential tremor, history of generalized anxiety disorder , history of pulmonary embolism, history of TIA presents because of severe left hip pain. Patient started having left hip pain since afternoon. Pain is very severe. Able to ambulate. Able to move her leg. Denies abdominal pain. Denies chest pain. No shortness of breath. No headache. No runny nose or sore throat. Has chronic cough. No fevers. Hemodynamics are okay. Acute pain of left hip X-ray of the left hip and pelvis:1. Small bone fragment seen adjacent to the tip of the roof of the left acetabulum; detached/ fractured osteophyte/accessory ossicle. Advise clinical correlation and follow-up. 2. Osteoarthritic changes of the left hip joint. 3. Bilateral sacroilitis. Pain control Will consult Ortho History of asthma History of bronchiectasis On prednisone 2.5 mg daily On Singulair and levocetirizine Continue home inhalers Hypothyroidism On Synthyroid Hypertension On lisinopril hydrochlorothiazide and spironolactone and metoprolol succinate Will monitor History of PE On Coumadin Follow INR Hyperlipidemia On statin Chronic gout On allopurinol Generalized anxiety disorder On Paxil History of TIA On warfarin and statin ckd stage 3 renal artery aneurysm baseline cr 1.4 follows with nephrology cr .15 today will follow labs MUGS follows with heme/onco risk of progression to multiple myeloma 1% per year as per heme/onco currently under observation DVT prophylaxis Warfarin. INR 2.1 Disposition Medical floor Full code. History of Present Illness Chief Complaint: Severe left hip pain Primary Care Provider: Phil Maldonado MD 84-year-old female with past medical history significant for dyslipidemia, hypothyroidism, chronic gout of left ankle, chronic rhinitis, vocal cord dysfunction, moderate persistent asthma without complication, lung nodules, chronic cough, bronchiectasis, renal artery aneurysm, hypertension, mild aortic regurgitation, irritable bowel syndrome with diarrhea, GERD, CKD stage III, essential tremor, history of generalized anxiety disorder , history of pulmonary embolism, history of TIA presents because of severe left hip pain. Patient started having left hip pain since afternoon. Pain is very severe. Able to ambulate. Able to move her leg. Denies abdominal pain. Denies chest pain. No shortness of breath. No headache. No runny nose or sore throat. Has chronic cough. No fevers. Hemodynamics are okay. Past medical history. As mentioned above Past surgical history. Colonoscopy. EGD. Ligation of oviducts. Nasal endoscopy. Bilateral cataracts. Cholecystectomy. Tonsillectomy/adenoidectomy. Social history. . No smoking. Alcohol rarely. No drug use. Family history. Father had depression. Hypertension. Mother had stroke. Aunt had stroke. Uncle had Parkinson's disorder. Allergies Allergy/AdvReac Type Severity Reaction Status Date / Time Sulfa (Sulfonamide Allergy Intermediate HIVES Verified 01/02/24 18:24 Antibiotics) azithromycin Allergy Unknown Unknown Unverified 01/02/24 18:24 Home Medications Medication Instructions Recorded Confirmed Type albuterol sulfate 90 mcg/actuation 2 puff inhalation Q6H PRN 02/20/18 10/15/24 History aerosol inhaler Shortness Of Breath Or Wheezing cholecalciferol (vitamin D3) 25 1,000 unit PO QAM 02/20/18 10/15/24 History mcg (1,000 unit) tablet (Vitamin D3) levocetirizine 5 mg tablet (Xyzal) 2.5 mg PO Q OTHER DAY 02/20/18 10/15/24 History metoprolol succinate 25 mg 12.5 mg PO QAM 02/20/18 10/15/24 History tablet,extended release 24 hr (Toprol XL) paroxetine HCl 30 mg tablet (Paxil) 30 mg PO QAM 02/20/18 10/15/24 History pravastatin 10 mg tablet 10 mg PO QPM 02/20/18 10/15/24 History spironolactone 25 mg tablet 25 mg PO QAM 02/20/18 10/15/24 History (Aldactone) lisinopril 20 2 tab PO QAM 12/29/18 10/15/24 History mg-hydrochlorothiazide 12.5 mg tablet montelukast 10 mg tablet 10 mg PO PM 12/29/18 10/15/24 History (Singulair) allopurinol 100 mg tablet 200 mg PO QAM 04/14/22 10/15/24 History levothyroxine 75 mcg tablet 75 mcg PO DAILYBB 04/14/22 10/15/24 History warfarin 2.5 mg tablet See Rx Instructions .Route .COMPLEX 04/14/22 10/15/24 History prednisone 2.5 mg tablet 2.5 mg PO QAM 01/02/24 10/15/24 History Past Med/Surg History Problem List (Updated 10/15/24 @ 07:36 by Dixie Varghese DO) Ambulatory dysfunction (Acute) Acute pain of left hip (Acute) Acute pain of left hip Near syncope Infection due to Norovirus species (Acute) Colitis (Acute) Syncope and collapse (Acute) Nausea (Acute) Acute generalized abdominal pain (Acute) Movement disorder Cough Stroke-like symptoms (Acute) HTN (hypertension) (Acute) CKD (chronic kidney disease), stage III Costochondritis, acute Hypoxia (Acute) Leukocytosis Shortness of breath (Acute) CKD (chronic kidney disease), stage III History of pulmonary embolism Moderate persistent asthma (Acute) Chest pain (Acute) Hypothyroidism (Chronic) DVT prophylaxis (Acute) IBS (irritable bowel syndrome) (Chronic) History of cholecystectomy (Chronic) Hypertension (Chronic) Medical History CKD (chronic kidney disease), stage III Aneurysm of right renal artery History of pulmonary embolism Chronic gout Dyslipidemia Moderate persistent asthma Hypothyroidism IBS (irritable bowel syndrome) Hypertension Surgical History History of cholecystectomy Family History Father Hypertension Mother Stroke Other Family history non-contributory Social History Smoking Status: Never smoker Second Hand Exposure: Yes; Hx Alcohol Use: No Hx Substance Use: No Preferred Language: Taiwanese Communication Ability: Effective 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 ENT- oropharynx clear Neck- supple, no JVD. Lungs- clear to auscultation no wheezing or crackles Heart- regular rhythm; no murmur, no gallop. Abdomen- normal bowel sounds, soft, nontender, no distension. Extremities- no pretibial edema, normal movement of left lower extremity Neuro- alert, oriented PERRL, no facial palsy; no dysarthria; moves extremities Musculoskeletal Tenderness in left hip region. Left leg Straight leg raise test normal Results & Data Results & Data Vital Signs (Past 12 Hours) Vital Signs Temp Pulse Pulse Resp BP BP Pulse Ox 10/15/24 04:23 58 L 10/15/24 04:11 57 L 20 166/58 H 96 10/15/24 04:11 98 10/15/24 03:08 89 L 10/15/24 02:34 61 14 126/50 L 97 10/15/24 02:33 98 10/15/24 00:36 87 L 10/15/24 00:31 61 10/15/24 00:27 36.7 C 60 14 154/58 H 92 O2 Del Method O2 Flow Rate 10/15/24 04:23 10/15/24 04:11 Room Air 10/15/24 04:11 2 10/15/24 03:08 Nasal Cannula 0 10/15/24 02:34 Room Air 10/15/24 02:33 Room Air 2 10/15/24 00:36 Nasal Cannula 0 10/15/24 00:31 10/15/24 00:27 Room Air Diagnostic Findings Laboratory Results WBC 9.06 K/ul (4.8-10.8) 10/15/24 00:37 RBC 3.55 M/uL (4.20-5.40) L 10/15/24 00:37 Hgb 11.4 g/dl (12.0-16.0) L 10/15/24 00:37 Hct 35.7 % (37.0-47.0) L 10/15/24 00:37 MCV 100.6 fL (80.0-100.0) H 10/15/24 00:37 MCH 32.1 pg (25.0-34.0) 10/15/24 00:37 MCHC 31.9 g/dL (32.0-36.0) L 10/15/24 00:37 RDW Std Deviation 50.4 fL (36.4-46.3) H 10/15/24 00:37 RDW Coeff of Madhuri 13.6 % (11.5-14.5) 10/15/24 00:37 Plt Count 294 K/uL (130-400) 10/15/24 00:37 MPV 11.2 fL (9.4-12.4) 10/15/24 00:37 Immature Gran % (Auto) 0.3 % 10/15/24 00:37 Neut % (Auto) 61.6 % 10/15/24 00:37 Lymph % (Auto) 27.2 % 10/15/24 00:37 [place] % (Auto) 8.1 % 10/15/24 00:37 Eos % (Auto) 2.0 % 10/15/24 00:37 Baso % (Auto) 0.8 % 10/15/24 00:37 Neut # (Auto) 5.59 K/uL (1.40-6.50) 10/15/24 00:37 Lymph # (Auto) 2.46 K/uL (1.20-3.40) 10/15/24 00:37 [place] # (Auto) 0.73 K/uL (0.11-0.59) H 10/15/24 00:37 Eos # (Auto) 0.18 K/uL (0.00-0.50) 10/15/24 00:37 Baso # (Auto) 0.07 K/uL (0.00-0.20) 10/15/24 00:37 Immature Gran # (Auto) 0.03 K/uL (0.01-0.20) 10/15/24 00:37 ESR 36 mm/hr (0-30) H 10/15/24 00:37 PT 21.7 Seconds (9.0-12.0) H 10/15/24 00:37 INR 2.1 (0.9-1.1) H 10/15/24 00:37 Sodium 138 mmol/L (136-145) 10/15/24 00:37 Potassium 4.5 mmol/L (3.5-5.1) 10/15/24 00:37 Chloride 107 mmol/L (98-107) 10/15/24 00:37 Carbon Dioxide 26 mmol/L (21-32) 10/15/24 00:37 Anion Gap 5 (3-11) 10/15/24 00:37 BUN 38 mg/dl (6-23) H 10/15/24 00:37 Creatinine 1.50 mg/dl (0.6-1.2) H 10/15/24 00:37 Est Cr Clr Drug Dosing 31.1 ml/min 10/15/24 00:37 eGFR 34.58 10/15/24 00:37 BUN/Creatinine Ratio 25.3 (10-20) H 10/15/24 00:37 Glucose 104 mg/dl (70-99(Fasting)) H 10/15/24 00:37 Uric Acid 4.4 mg/dl (2.6-7.2) 10/15/24 00:37 Calcium 8.5 mg/dl (8.6-10.3) L 10/15/24 00:37 Total Bilirubin 0.3 mg/dl (0.2-1.0) 10/15/24 00:37 AST 19 U/L (13-39) 10/15/24 00:37 ALT 13 U/L (7-52) 10/15/24 00:37 Alkaline Phosphatase 49 U/L (34-104) 10/15/24 00:37 C-Reactive Protein 1.05 mg/dl (0-0.5) H 10/15/24 00:37 Total Protein 6.3 gm/dl (6.0-8.3) 10/15/24 00:37 Albumin 3.8 gm/dl (3.4-5.0) 10/15/24 00:37 Globulin 2.5 gm/dl (2.5-4.0) 10/15/24 00:37 Albumin/Globulin Ratio 1.5 (0.9-2) 10/15/24 00:37 Impressions Hip/Pelvis X-Ray 10/15/24 01:09 EXAM: XR hip LT 2V w pelvis CLINICAL HISTORY: Pain TECHNIQUE: X-ray images of the left hip joints in AP and lateral projections with pelvis AP view. COMPARISON: No prior studies available for comparison. FINDINGS: Hip Joints: Narrowed hip joint, subchondral sclerosis with multiple osteophytes. Small bone fragment seen adjacent to the tip of the roof of the left acetabulum; detached osteophytes No evidence of hip dislocation or subluxation. Bilateral sacroilitis. Symphysis Pubis: Symphysis pubis is normal and intact. No evidence of separation or widening. Soft Tissues: Visualized soft tissues are normal and unremarkable. No soft tissue swelling, calcifications, or masses. Additional Findings: No other significant abnormalities were noted. IMPRESSION: 1. Small bone fragment seen adjacent to the tip of the roof of the left acetabulum; detached/ fractured osteophyte/accessory ossicle. Advise clinical correlation and follow-up. 2. Osteoarthritic changes of the left hip joint. 3. Bilateral sacroilitis. Disclaimer: A subtle bone abnormality or fracture may not be readily apparent on X-rays, thus clinical correlation and further imaging including follow-up CT, MRI, or follow-up X-rays are advised as needed. Electronically signed by Ar Woodall 10-15-2024 05:10 AM Code Status & VTE Plan VTE Prophylaxis Plan VTE Prophylaxis will be ordered: Yes
[2024-10-15] MEDS ORDERED: WARFARIN SOD 2.5 MG TAB PO SCH (08:45)
[2024-10-15] MEDS ORDERED: ALBUTEROL HFA 8 GM INHALER INH PRN (08:45)
[2024-10-15] MEDS ORDERED: ACETAMINOPHEN 1,000 MG/100 ML VIAL IV PRN (08:45)
[2024-10-15] MEDS ORDERED: POLYETHYLENE (MIRALAX) 17 GM PACK PO PRN (08:45)
[2024-10-15] MEDS: CETIRIZINE HCL 10 MG TABLET PO SCH (09:51)
[2024-10-15] MEDS: LISINOPRIL/HCTZ 20/12.5MG 1 TAB TAB PO SCH (09:51)
[2024-10-15] MEDS: CHOLECALCIFEROL 25 MCG (1000 UNITS) TAB PO SCH (09:51)
[2024-10-15] MEDS: LEVOTHYROXINE SODIUM 75 MCG TABLET PO SCH (09:51)
[2024-10-15] MEDS: METOPROLOL SUCC 25MG EXT REL TAB PO SCH (09:53)
[2024-10-15] MEDS: SPIRONOLACTONE 25 MG TAB PO SCH (09:54)
[2024-10-15] MEDS: HYDROmorphone INJ 0.5 MG/0.5 ML SYR IV PRN (10:08)
--- NOTE | 2024-10-15 11:06 | CT Scan Report ---
Clinical history: Rule out occult fracture Technique: Axial computed tomography images were obtained of the left hip without intravenous contrast. Sagittal and coronal reconstructions were obtained Findings: No fracture is identified. No subluxation or dislocation is seen. There is severe left hip osteoarthritis. There are degenerative changes of the pubic symphysis. No focal osseous lesion is evident The visualized musculature appears unremarkable. No soft tissue mass or fluid collection is seen. No foreign body is evident Impression: 1. No definite fracture 2. Osteoarthritis Electronically signed by Cristobal Maravilla 10-15-2024 11:06 AM
[2024-10-15] MEDS: ACETAMINOPHEN 325 MG TAB PO SCH (12:00)
--- NOTE | 2024-10-15 12:42 | Orthopedic Consultation ---
Date of Consultation October 15, 2024 Assessment & Plan (1) Acute pain of left hip: IMPRESSION: Left hip pain secondarily to left hip OA vs SI dysfunction vs lumbar etiology, acute on chronic PLAN: WBAT LLE, likely require walker. RICE Pain control per Hospitalist service PT/OT F/U as an outpatient in 1-2 weeks with [facility] or [facility] Present on Admission?: Yes History of Present Illness Reason for Consultation: Severe Left hip pain Requesting Physician: Rickie Her MD Attending Physician: Chester Vance MD History of Present Illness 84 year old female with increased left hip pain yesterday without any injury or fall. She believes she may have had treatment for her hip 10 years ago with [facility]. She is able to bare weight. Radiographs and CT obtained, I was consulted for evaluation and treatment. She has history of PE and is on Coum sandie. Dr. Card previously performed CTR. Allergies Allergy/AdvReac Type Severity Reaction Status Date / Time Sulfa (Sulfonamide Allergy Intermediate HIVES Verified 01/02/24 18:24 Antibiotics) azithromycin Allergy Unknown Unknown Unverified 01/02/24 18:24 Home Medications Medication Instructions Recorded Confirmed Type albuterol sulfate 90 mcg/actuation 2 puff inhalation Q6H PRN 02/20/18 10/15/24 History aerosol inhaler Shortness Of Breath Or Wheezing cholecalciferol (vitamin D3) 25 1,000 unit PO QAM 02/20/18 10/15/24 History mcg (1,000 unit) tablet (Vitamin D3) levocetirizine 5 mg tablet (Xyzal) 2.5 mg PO Q OTHER DAY 02/20/18 10/15/24 History metoprolol succinate 25 mg 12.5 mg PO QAM 02/20/18 10/15/24 History tablet,extended release 24 hr (Toprol XL) paroxetine HCl 30 mg tablet (Paxil) 30 mg PO QAM 02/20/18 10/15/24 History pravastatin 10 mg tablet 10 mg PO QPM 02/20/18 10/15/24 History spironolactone 25 mg tablet 25 mg PO QAM 02/20/18 10/15/24 History (Aldactone) lisinopril 20 2 tab PO QAM 12/29/18 10/15/24 History mg-hydrochlorothiazide 12.5 mg tablet montelukast 10 mg tablet 10 mg PO PM 12/29/18 10/15/24 History (Singulair) allopurinol 100 mg tablet 200 mg PO QAM 04/14/22 10/15/24 History levothyroxine 75 mcg tablet 75 mcg PO DAILYBB 04/14/22 10/15/24 History warfarin 2.5 mg tablet See Rx Instructions .Route .COMPLEX 04/14/22 10/15/24 History prednisone 2.5 mg tablet 2.5 mg PO QAM 01/02/24 10/15/24 History Patient History Medical History CKD (chronic kidney disease), stage III Aneurysm of right renal artery History of pulmonary embolism Chronic gout Dyslipidemia Moderate persistent asthma Hypothyroidism IBS (irritable bowel syndrome) Hypertension Surgical History History of cholecystectomy Family History Father Hypertension Mother Stroke Other Family history non-contributory Social History Smoking Status: Never smoker Second Hand Exposure: Yes; Hx Alcohol Use: No Hx Substance Use: No Preferred Language: Yi Communication Ability: Effective Surfacer Required: No Beliefs That Will Affect Care: None marital status: Current Living Situation: Spouse current occupational status: retired Feels Safe at Home: Yes Assistive Devices: Cane and Walker Physical Exam Physical Exam: LLE: Sensation to light touch is unchanged per patient. BCR < 2 sec. Able to flex & extend toes, ankle, knee, and hip. Able to preform straight leg raise. - log roll hip. + tenderness to palpation buttock. Hip ROM: FF 100 deg; Abduction 30 deg; Adduction 10 deg; ER 30 deg; IR 10 deg - TODD - FADIR Results & Data Vital Signs (Past 12 Hours) Vital Signs Temp Pulse Pulse Pulse Resp BP Pulse Ox 10/15/24 08:30 36.3 C L 57 L 16 168/62 H 91 10/15/24 08:00 52 L 20 119/57 L 94 10/15/24 06:00 56 L 14 107/60 93 10/15/24 04:23 58 L 10/15/24 04:11 57 L 20 166/58 H 96 10/15/24 04:11 98 10/15/24 03:08 89 L 10/15/24 02:34 61 14 126/50 L 97 10/15/24 02:33 98 10/15/24 00:36 87 L 10/15/24 00:31 61 O2 Del Method O2 Flow Rate 10/15/24 08:30 Room Air 10/15/24 08:00 Room Air 10/15/24 06:00 Room Air 10/15/24 04:23 10/15/24 04:11 Room Air 10/15/24 04:11 2 10/15/24 03:08 Nasal Cannula 0 10/15/24 02:34 Room Air 10/15/24 02:33 Room Air 2 10/15/24 00:36 Nasal Cannula 0 10/15/24 00:31 Laboratory Results Laboratory Results WBC 9.06 K/ul (4.8-10.8) 10/15/24 00:37 RBC 3.55 M/uL (4.20-5.40) L 10/15/24 00:37 Hgb 11.4 g/dl (12.0-16.0) L 10/15/24 00:37 Hct 35.7 % (37.0-47.0) L 10/15/24 00:37 MCV 100.6 fL (80.0-100.0) H 10/15/24 00:37 MCH 32.1 pg (25.0-34.0) 10/15/24 00:37 MCHC 31.9 g/dL (32.0-36.0) L 10/15/24 00:37 RDW Std Deviation 50.4 fL (36.4-46.3) H 10/15/24 00:37 RDW Coeff of Madhuri 13.6 % (11.5-14.5) 10/15/24 00:37 Plt Count 294 K/uL (130-400) 10/15/24 00:37 MPV 11.2 fL (9.4-12.4) 10/15/24 00:37 Immature Gran % (Auto) 0.3 % 10/15/24 00:37 Neut % (Auto) 61.6 % 10/15/24 00:37 Lymph % (Auto) 27.2 % 10/15/24 00:37 [place] % (Auto) 8.1 % 10/15/24 00:37 Eos % (Auto) 2.0 % 10/15/24 00:37 Baso % (Auto) 0.8 % 10/15/24 00:37 Neut # (Auto) 5.59 K/uL (1.40-6.50) 10/15/24 00:37 Lymph # (Auto) 2.46 K/uL (1.20-3.40) 10/15/24 00:37 [place] # (Auto) 0.73 K/uL (0.11-0.59) H 10/15/24 00:37 Eos # (Auto) 0.18 K/uL (0.00-0.50) 10/15/24 00:37 Baso # (Auto) 0.07 K/uL (0.00-0.20) 10/15/24 00:37 Immature Gran # (Auto) 0.03 K/uL (0.01-0.20) 10/15/24 00:37 ESR 36 mm/hr (0-30) H 10/15/24 00:37 PT 21.7 Seconds (9.0-12.0) H 10/15/24 00:37 INR 2.1 (0.9-1.1) H 10/15/24 00:37 Sodium 138 mmol/L (136-145) 10/15/24 00:37 Potassium 4.5 mmol/L (3.5-5.1) 10/15/24 00:37 Chloride 107 mmol/L (98-107) 10/15/24 00:37 Carbon Dioxide 26 mmol/L (21-32) 10/15/24 00:37 Anion Gap 5 (3-11) 10/15/24 00:37 BUN 38 mg/dl (6-23) H 10/15/24 00:37 Creatinine 1.50 mg/dl (0.6-1.2) H 10/15/24 00:37 Est Cr Clr Drug Dosing 31.1 ml/min 10/15/24 00:37 eGFR 34.58 10/15/24 00:37 BUN/Creatinine Ratio 25.3 (10-20) H 10/15/24 00:37 Glucose 104 mg/dl (70-99(Fasting)) H 10/15/24 00:37 Uric Acid 4.4 mg/dl (2.6-7.2) 10/15/24 00:37 Calcium 8.5 mg/dl (8.6-10.3) L 10/15/24 00:37 Total Bilirubin 0.3 mg/dl (0.2-1.0) 10/15/24 00:37 AST 19 U/L (13-39) 10/15/24 00:37 ALT 13 U/L (7-52) 10/15/24 00:37 Alkaline Phosphatase 49 U/L (34-104) 10/15/24 00:37 C-Reactive Protein 1.05 mg/dl (0-0.5) H 10/15/24 00:37 Total Protein 6.3 gm/dl (6.0-8.3) 10/15/24 00:37 Albumin 3.8 gm/dl (3.4-5.0) 10/15/24 00:37 Globulin 2.5 gm/dl (2.5-4.0) 10/15/24 00:37 Albumin/Globulin Ratio 1.5 (0.9-2) 10/15/24 00:37 Impressions Hip/Pelvis X-Ray 10/15/24 01:09 EXAM: XR hip LT 2V w pelvis CLINICAL HISTORY: Pain TECHNIQUE: X-ray images of the left hip joints in AP and lateral projections with pelvis AP view. COMPARISON: No prior studies available for comparison. FINDINGS: Hip Joints: Narrowed hip joint, subchondral sclerosis with multiple osteophytes. Small bone fragment seen adjacent to the tip of the roof of the left acetabulum; detached osteophytes No evidence of hip dislocation or subluxation. Bilateral sacroilitis. Symphysis Pubis: Symphysis pubis is normal and intact. No evidence of separation or widening. Soft Tissues: Visualized soft tissues are normal and unremarkable. No soft tissue swelling, calcifications, or masses. Additional Findings: No other significant abnormalities were noted. IMPRESSION: 1. Small bone fragment seen adjacent to the tip of the roof of the left acetabulum; detached/ fractured osteophyte/accessory ossicle. Advise clinical correlation and follow-up. - db impression related to OA 2. Osteoarthritic changes of the left hip joint. 3. Bilateral sacroilitis. db in addition degenerative changes lower lumbar spine. Disclaimer: A subtle bone abnormality or fracture may not be readily apparent on X-rays, thus clinical correlation and further imaging including follow-up CT, MRI, or follow-up X-rays are advised as needed. Electronically signed by Ar Woodall 10-15-2024 05:[address] 10/15/24 10:17 Clinical history: Rule out occult fracture Technique: Axial computed tomography images were obtained of the left hip without intravenous contrast. Sagittal and coronal reconstructions were obtained Findings: No fracture is identified. No subluxation or dislocation is seen. There is severe left hip osteoarthritis. There are degenerative changes of the pubic symphysis. No focal osseous lesion is evident The visualized musculature appears unremarkable. No soft tissue mass or fluid collection is seen. No foreign body is evident Impression: 1. No definite fracture 2. Osteoarthritis Electronically signed by Cristobal Maravilla 10-15-2024 11:06 AM
--- NOTE | 2024-10-15 13:29 | Hospitalist Progress Note ---
Date of Service October 15, 2024 Assessment & Plan (1) Acute pain of left hip: Plan: 84-year-old female with past medical history significant for dyslipidemia, hypothyroidism, chronic gout of left ankle, chronic rhinitis, vocal cord dysfunction, moderate persistent asthma without complication, lung nodules, chronic cough, bronchiectasis, renal artery aneurysm, hypertension, mild aortic regurgitation, irritable bowel syndrome with diarrhea, GERD, CKD stage III, essential tremor, history of generalized anxiety disorder , history of pulmonary embolism, history of TIA presents because of severe left hip pain. Patient started having left hip pain since afternoon. Pain is very severe. Able to ambulate. Able to move her leg. Denies abdominal pain. Denies chest pain. No shortness of breath. No headache. No runny nose or sore throat. Has chronic cough. No fevers. Hemodynamics are okay. Acute pain of left hip Patient presented with acute pain on her left hip radiating down her thigh. X-ray of the hip and pelvis showed small bone fragment seen adjacent to the tip of the roof of the left acetabulum. CT of the hip was done which did not show any acute finding. Likely related with muscular sprain Orthopedic consulted; continue pain control and weight-bear as tolerated. PT OT ordered History of asthma History of bronchiectasis On prednisone 2.5 mg daily On Singulair and levocetirizine Continue home inhalers Hypothyroidism On Synthyroid,continue Hypertension On lisinopril hydrochlorothiazide and spironolactone and metoprolol succinate,continue Will monitor History of PE On Coumadin,continue Follow INR Hyperlipidemia On statin,continue Chronic gout On allopurinol,continue Generalized anxiety disorder On Paxil,continue History of TIA On warfarin and statin,continue ckd stage 3 renal artery aneurysm baseline cr 1.4 follows with nephrology MUGS follows with heme/onco risk of progression to multiple myeloma 1% per year as per heme/onco currently under observation DVT prophylaxis Warfarin. INR 2.1 Disposition Medical floor Full code. Please note the above document was generated using voice recognition software. It may contain grammatical, syntax or spelling errors. Any formal questions or concerns about the content, text or information contained within the body of this dictation should be directly addressed to the provider for clarification Admission and Anticipated Discharge Date Admission Date: October 15, 2024 Subjective Patient seen at bedside. She is lying in the bed comfortably; reports pain on left hip. Reports that she is able to bear weight on the hip. Review of Systems Review of Systems: All systems reviewed & are unremarkable except as noted in Subjective Physical Exam Physical Exam: General- Not in distress Head- atraumatic Eyes- PERRL. ENT- oropharynx clear Neck- supple, no JVD. Lungs- clear to auscultation no wheezing or crackles Heart- regular rhythm; no murmur, no gallop. Abdomen- normal bowel sounds, soft, nontender, no distension. Extremities- no pretibial edema, normal movement of left lower extremity Neuro- alert, oriented PERRL, no facial palsy; no dysarthria; moves extremities Musculoskeletal Tenderness in left hip region. Left leg Straight leg raise test normal Results & Data Results & Data Vital Signs (Past 12 Hours) Vital Signs Temp Pulse Pulse Pulse Resp BP Pulse Ox 10/15/24 08:30 36.3 C L 57 L 16 168/62 H 91 10/15/24 08:00 52 L 20 119/57 L 94 10/15/24 06:00 56 L 14 107/60 93 10/15/24 04:23 58 L 10/15/24 04:11 57 L 20 166/58 H 96 10/15/24 04:11 98 10/15/24 03:08 89 L 10/15/24 02:34 61 14 126/50 L 97 10/15/24 02:33 98 O2 Del Method O2 Flow Rate 10/15/24 08:30 Room Air 10/15/24 08:00 Room Air 10/15/24 06:00 Room Air 10/15/24 04:23 10/15/24 04:11 Room Air 10/15/24 04:11 2 10/15/24 03:08 Nasal Cannula 0 10/15/24 02:34 Room Air 10/15/24 02:33 Room Air 2
[2024-10-15] MEDS: WARFARIN SOD 2.5 MG TAB PO SCH (17:20)
--- NOTE | 2024-10-15 17:54 | Ultrasound Report ---
DVT ULTRASOUND BILATERAL LOWER EXTREMITY INDICATION: Pain TECHNIQUE: Grayscale and color Doppler evaluation of the BILATERAL femoral-popliteal venous system was performed. A duplex Doppler study was performed, consisting of integrated two-dimensional (2D) real-time imaging: Color flow Doppler and Doppler spectral analysis. COMPARISON: None. FINDINGS: RIGHT common femoral, femoral and popliteal veins: Normal compressibility, color flow, respiratory variation. No intraluminal echogenic material. LEFT common femoral, femoral and popliteal veins: Normal compressibility, color flow, respiratory variation. No intraluminal echogenic material. IMPRESSION: No evidence of deep venous thrombus in bilateral femoral-popliteal venous systems. Electronically signed by Pablo Amador 10-15-2024 5:54 PM
[2024-10-15] MEDS: PRAVASTATIN SOD 10 MG TAB PO SCH (20:21)
[2024-10-15] MEDS: MONTELUKAST SODIUM 10 MG TABLET PO SCH (20:21)
[2024-10-16 06:06] LABS: Hematocrit (blood only) 33.3 % (37.0-47.0); Hemoglobin 10.9 g/dl (12.0-16.0); Immature Granulocytes # (auto) 0.05 K/uL (0.01-0.20); Immature Granulocytes % (auto) 0.5 %; Mean Corpuscular Hemoglobin 32.7 pg (25.0-34.0); Mean Corpuscular Volume 100.0 fL (80.0-100.0); Platelet Count 246 K/uL (130-400); RDW Standard Deviation 49.6 fL (36.4-46.3); Red Blood Count 3.33 M/uL (4.20-5.40); White Blood Count 9.18 K/ul (4.8-10.8)
[2024-10-16 06:18] LABS: INR 2.8 (0.9-1.1); Prothrombin Time 28.1 Seconds (9.0-12.0)
[2024-10-16 06:25] LABS: Anion Gap 7.0 (3-11); Blood Urea Nitrogen 48.0 mg/dl (6-23); Calcium 7.8 mg/dl (8.6-10.3); Carbon Dioxide 24.0 mmol/L (21-32); Chloride 105.0 mmol/L (98-107); Creatinine Clr Calc Pharmacy 26.1 ml/min; Glucose 100.0 mg/dl (70-99(Fasting)); Magnesium 2.1 mg/dl (1.7-2.4); Potassium 4.6 mmol/L (3.5-5.1); Sodium 136.0 mmol/L (136-145)
[2024-10-16] MEDS: SODIUM CHLORIDE 0.9% 500 ML IV ONE (08:26)
--- NOTE | 2024-10-16 10:09 | Orthopedic Progress Note ---
Date of Service October 16, 2024 Assessment & Plan (1) Acute pain of left hip: Plan: IMPRESSION: Left hip pain secondarily to left hip OA vs SI dysfunction vs lumbar etiology, acute on chronic PLAN: WBAT LLE, likely require walker. Order placed for application of Voltaren gel to the patient's left hip and SI joint RICE Pain control per Hospitalist service DVT prophylaxis with warfarin Consult message sent to teams to the patient to be seen in our clinic by nataly for an ultrasound-guided left hip corticosteroid injection with diagnostic ultrasound of her SI joint PT/OT F/U as an outpatient in 1-2 weeks Patient may need discharge to a rehab or [facility] facility With questions contact our clinic at [phone] Admission and Anticipated Discharge Date Admission Date: October 15, 2024 Supervising Physician Co-Signing Physician Notes I, Dr. Her, saw and examined the patient with my PA. I discussed the management with my PA. I reviewed my PAs note and agree with the documented findings and attest to completing the substantive portion of medical decision making and plan of care I developed. Subjective This 84-year-old female seen today for follow-up of left hip pain. She states she will also has developed some left lower back pain. She states that her pain is much better today after receiving pain medication. She states that she has not yet been out of bed with physical therapy. Currently she denies chest pain or shortness of breath. She has no fever chills sweats or nausea. She has no complaint of numbness or tingling in her left lower extremity. Review of Systems Review of Systems: All systems reviewed & are unremarkable except as noted in Subjective Physical Exam Physical Exam: Left lower extremity: Capillary refill is brisk. Peripheral pulses are 1+. Patient was able to detect light sensation to touch over the pads of all digits. Able to flex & extend toes, ankle, knee, and hip. Able to preform straight leg raise. - log roll hip. + tenderness to palpation Over the left SI joint Hip ROM: FF 100 deg; Abduction 30 deg; Adduction 10 deg; ER 30 deg; IR 10 deg + TODD - FADIR Results & Data Vital Signs (Past 12 Hours) Vital Signs Temp Pulse Pulse Resp BP BP Pulse Ox 10/16/24 09:12 98/61 L 10/16/24 08:08 36.7 C 65 18 108/64 92 10/16/24 07:24 36.7 C 71 18 97/62 L 94 O2 Del Method 10/16/24 09:12 10/16/24 08:08 Room Air 10/16/24 07:24 Room Air Diagnostic Findings Laboratory Results WBC 9.18 K/ul (4.8-10.8) 10/16/24 05:27 RBC 3.33 M/uL (4.20-5.40) L 10/16/24 05:27 Hgb 10.9 g/dl (12.0-16.0) L 10/16/24 05:27 Hct 33.3 % (37.0-47.0) L 10/16/24 05:27 MCV 100.0 fL (80.0-100.0) 10/16/24 05:27 MCH 32.7 pg (25.0-34.0) 10/16/24 05:27 MCHC 32.7 g/dL (32.0-36.0) 10/16/24 05:27 RDW Std Deviation 49.6 fL (36.4-46.3) H 10/16/24 05:27 RDW Coeff of Madhuri 13.6 % (11.5-14.5) 10/16/24 05:27 Plt Count 246 K/uL (130-400) 10/16/24 05:27 MPV 10.8 fL (9.4-12.4) 10/16/24 05:27 Immature Gran % (Auto) 0.5 % 10/16/24 05:27 Neut % (Auto) 62.3 % 10/16/24 05:27 Lymph % (Auto) 25.4 % 10/16/24 05:27 Beadle % (Auto) 7.5 % 10/16/24 05:27 Eos % (Auto) 3.5 % 10/16/24 05:27 Baso % (Auto) 0.8 % 10/16/24 05:27 Neut # (Auto) 5.72 K/uL (1.40-6.50) 10/16/24 05:27 Lymph # (Auto) 2.33 K/uL (1.20-3.40) 10/16/24 05:27 Beadle # (Auto) 0.69 K/uL (0.11-0.59) H 10/16/24 05:27 Eos # (Auto) 0.32 K/uL (0.00-0.50) 10/16/24 05:27 Baso # (Auto) 0.07 K/uL (0.00-0.20) 10/16/24 05:27 Immature Gran # (Auto) 0.05 K/uL (0.01-0.20) 10/16/24 05:27 ESR 36 mm/hr (0-30) H 10/15/24 00:37 PT 28.1 Seconds (9.0-12.0) H 10/16/24 05:27 INR 2.8 (0.9-1.1) H 10/16/24 05:27 Sodium 136 mmol/L (136-145) 10/16/24 05:27 Potassium 4.6 mmol/L (3.5-5.1) 10/16/24 05:27 Chloride 105 mmol/L (98-107) 10/16/24 05:27 Carbon Dioxide 24 mmol/L (21-32) 10/16/24 05:27 Anion Gap 7 (3-11) 10/16/24 05:27 BUN 48 mg/dl (6-23) H 10/16/24 05:27 Creatinine 1.79 mg/dl (0.6-1.2) H 10/16/24 05:27 Est Cr Clr Drug Dosing 26.1 ml/min 10/16/24 05:27 eGFR 27.97 10/16/24 05:27 BUN/Creatinine Ratio 26.8 (10-20) H 10/16/24 05:27 Glucose 100 mg/dl (70-99(Fasting)) H 10/16/24 05:27 Uric Acid 4.4 mg/dl (2.6-7.2) 10/15/24 00:37 Calcium 7.8 mg/dl (8.6-10.3) L 10/16/24 05:27 Magnesium 2.1 mg/dl (1.7-2.4) 10/16/24 05:27 Total Bilirubin 0.3 mg/dl (0.2-1.0) 10/15/24 00:37 AST 19 U/L (13-39) 10/15/24 00:37 ALT 13 U/L (7-52) 10/15/24 00:37 Alkaline Phosphatase 49 U/L (34-104) 10/15/24 00:37 C-Reactive Protein 1.05 mg/dl (0-0.5) H 10/15/24 00:37 Total Protein 6.3 gm/dl (6.0-8.3) 10/15/24 00:37 Albumin 3.8 gm/dl (3.4-5.0) 10/15/24 00:37 Globulin 2.5 gm/dl (2.5-4.0) 10/15/24 00:37 Albumin/Globulin Ratio 1.5 (0.9-2) 10/15/24 00:37 Impressions Hip/Pelvis X-Ray 10/15/24 01:09 EXAM: XR hip LT 2V w pelvis CLINICAL HISTORY: Pain TECHNIQUE: X-ray images of the left hip joints in AP and lateral projections with pelvis AP view. COMPARISON: No prior studies available for comparison. FINDINGS: Hip Joints: Narrowed hip joint, subchondral sclerosis with multiple osteophytes. Small bone fragment seen adjacent to the tip of the roof of the left acetabulum; detached osteophytes No evidence of hip dislocation or subluxation. Bilateral sacroilitis. Symphysis Pubis: Symphysis pubis is normal and intact. No evidence of separation or widening. Soft Tissues: Visualized soft tissues are normal and unremarkable. No soft tissue swelling, calcifications, or masses. Additional Findings: No other significant abnormalities were noted. IMPRESSION: 1. Small bone fragment seen adjacent to the tip of the roof of the left acetabulum; detached/ fractured osteophyte/accessory ossicle. Advise clinical correlation and follow-up. 2. Osteoarthritic changes of the left hip joint. 3. Bilateral sacroilitis. Disclaimer: A subtle bone abnormality or fracture may not be readily apparent on X-rays, thus clinical correlation and further imaging including follow-up CT, MRI, or follow-up X-rays are advised as needed. Electronically signed by Ar Woodall 10-15-2024 05:[address] 10/15/24 10:17 Clinical history: Rule out occult fracture Technique: Axial computed tomography images were obtained of the left hip without intravenous contrast. Sagittal and coronal reconstructions were obtained Findings: No fracture is identified. No subluxation or dislocation is seen. There is severe left hip osteoarthritis. There are degenerative changes of the pubic symphysis. No focal osseous lesion is evident The visualized musculature appears unremarkable. No soft tissue mass or fluid collection is seen. No foreign body is evident Impression: 1. No definite fracture 2. Osteoarthritis Electronically signed by Cristobal Maravilla 10-15-2024 11:06 AM Venous Doppler Study 10/15/24 10:27 DVT ULTRASOUND BILATERAL LOWER EXTREMITY INDICATION: Pain TECHNIQUE: Grayscale and color Doppler evaluation of the BILATERAL femoral-popliteal venous system was performed. A duplex Doppler study was performed, consisting of integrated two-dimensional (2D) real-time imaging: Color flow Doppler and Doppler spectral analysis. COMPARISON: None. FINDINGS: RIGHT common femoral, femoral and popliteal veins: Normal compressibility, color flow, respiratory variation. No intraluminal echogenic material. LEFT common femoral, femoral and popliteal veins: Normal compressibility, color flow, respiratory variation. No intraluminal echogenic material. IMPRESSION: No evidence of deep venous thrombus in bilateral femoral-popliteal venous systems. Electronically signed by Pablo Amador 10-15-2024 5:54 PM
[2024-10-16] MEDS: ACETAMINOPHEN 1,000 MG/100 ML VIAL IV STA (10:41)
[2024-10-16] MEDS: DICLOFENAC SOD 1% GEL 100 GM TUBE EXT SCH (11:11)
[2024-10-16] MEDS: SODIUM CHLORIDE 0.9% 1,000 ML IV SCH (11:15)
--- NOTE | 2024-10-16 12:54 | Hospitalist Progress Note ---
Date of Service October 16, 2024 Assessment & Plan (1) Acute pain of left hip: Plan: 84-year-old female with past medical history significant for dyslipidemia, hypothyroidism, chronic gout of left ankle, chronic rhinitis, vocal cord dysfunction, moderate persistent asthma without complication, lung nodules, chronic cough, bronchiectasis, renal artery aneurysm, hypertension, mild aortic regurgitation, irritable bowel syndrome with diarrhea, GERD, CKD stage III, essential tremor, history of generalized anxiety disorder , history of pulmonary embolism, history of TIA presents because of severe left hip pain. Patient started having left hip pain since afternoon. Pain is very severe. Able to ambulate. Able to move her leg. Denies abdominal pain. Denies chest pain. No shortness of breath. No headache. No runny nose or sore throat. Has chronic cough. No fevers. Hemodynamics are okay. Acute pain of left hip Patient presented with acute pain on her left hip radiating down her thigh. X-ray of the hip and pelvis showed small bone fragment seen adjacent to the tip of the roof of the left acetabulum. CT of the hip was done which did not show any acute finding. Likely related with muscular sprain Orthopedic consulted; continue pain control and weight-bear as tolerated. Possible corticosteroid injection as outpatient PT OT; might need home PT OT at discharge. History of asthma History of bronchiectasis On prednisone 2.5 mg daily On Singulair and levocetirizine Continue home inhalers Hypothyroidism On Synthyroid,continue Hypertension On lisinopril hydrochlorothiazide and spironolactone and metoprolol succinate- on hold History of PE On Coumadin,continue Follow INR Hyperlipidemia On statin,continue Chronic gout On allopurinol,continue Generalized anxiety disorder On Paxil,continue History of TIA On warfarin and statin,continue ckd stage 3 renal artery aneurysm baseline cr 1.4 follows with nephrology [facility] follows with heme/onco risk of progression to multiple myeloma 1% per year as per heme/onco currently under observation DVT prophylaxis Warfarin. INR therapeutic Disposition Medical floor Full code. Please note the above document was generated using voice recognition software. It may contain grammatical, syntax or spelling errors. Any formal questions or concerns about the content, text or information contained within the body of this dictation should be directly addressed to the provider for clarification Admission and Anticipated Discharge Date Admission Date: October 15, 2024 Subjective Patient seen and examined at bedside. She reports that she does not have pain on standing up and ambulating; reports some pain while she is sitting down. Review of Systems Review of Systems: All systems reviewed & are unremarkable except as noted in Subjective Physical Exam Physical Exam: General- Not in distress Head- atraumatic Eyes- PERRL. ENT- oropharynx clear Neck- supple, no JVD. Lungs- clear to auscultation no wheezing or crackles Heart- regular rhythm; no murmur, no gallop. Abdomen- normal bowel sounds, soft, nontender, no distension. Extremities- no pretibial edema, normal movement of left lower extremity Neuro- alert, oriented PERRL, no facial palsy; no dysarthria; moves extremities Musculoskeletal Tenderness in left hip region. Results & Data Results & Data Vital Signs (Past 12 Hours) Vital Signs Temp Pulse Pulse Resp BP BP Pulse Ox 10/16/24 09:12 98/61 L 10/16/24 08:08 36.7 C 65 18 108/64 92 10/16/24 07:24 36.7 C 71 18 97/62 L 94 O2 Del Method 10/16/24 09:12 10/16/24 08:08 Room Air 10/16/24 07:24 Room Air
[2024-10-16] MEDS: WARFARIN SOD 1.25 MG TAB PO SCH (15:44)
[2024-10-17 06:44] LABS: Hematocrit (blood only) 33.4 % (37.0-47.0); Hemoglobin 10.8 g/dl (12.0-16.0); Immature Granulocytes # (auto) 0.02 K/uL (0.01-0.20); Immature Granulocytes % (auto) 0.3 %; Mean Corpuscular Hemoglobin 32.0 pg (25.0-34.0); Mean Corpuscular Volume 99.1 fL (80.0-100.0); Platelet Count 272 K/uL (130-400); RDW Standard Deviation 49.3 fL (36.4-46.3); Red Blood Count 3.37 M/uL (4.20-5.40); White Blood Count 7.91 K/ul (4.8-10.8)
[2024-10-17 07:09] LABS: INR 2.7 (0.9-1.1); Prothrombin Time 26.7 Seconds (9.0-12.0)
[2024-10-17 07:15] LABS: Anion Gap 5.0 (3-11); Blood Urea Nitrogen 38.0 mg/dl (6-23); Calcium 8.1 mg/dl (8.6-10.3); Carbon Dioxide 25.0 mmol/L (21-32); Chloride 110.0 mmol/L (98-107); Creatinine Clr Calc Pharmacy 34.6 ml/min; Glucose 79.0 mg/dl (70-99(Fasting)); Potassium 4.3 mmol/L (3.5-5.1); Sodium 140.0 mmol/L (136-145)
[2024-10-17 07:26] VITALS: BP 112/46; RESP 16; TEMP 98.1; O2SAT 93
[2024-10-17 11:06] VITALS: PULSE 67
--- NOTE | 2024-10-17 15:19 | Discharge Summary ---
Date of Service October 17, 2024 Admission HPI Per Admitting Provider 84-year-old female with past medical history significant for dyslipidemia, hypothyroidism, chronic gout of left ankle, chronic rhinitis, vocal cord dysfunction, moderate persistent asthma without complication, lung nodules, chronic cough, bronchiectasis, renal artery aneurysm, hypertension, mild aortic regurgitation, irritable bowel syndrome with diarrhea, GERD, CKD stage III, essential tremor, history of generalized anxiety disorder , history of pulmonary embolism, history of TIA presents because of severe left hip pain. Patient started having left hip pain since afternoon. Pain is very severe. Able to ambulate. Able to move her leg. Denies abdominal pain. Denies chest pain. No shortness of breath. No headache. No runny nose or sore throat. Has chronic cough. No fevers. Hemodynamics are okay. Past medical history. As mentioned above Past surgical history. Colonoscopy. EGD. Ligation of oviducts. Nasal endoscopy. Bilateral cataracts. Cholecystectomy. Tonsillectomy/adenoidectomy. Social history. . No smoking. Alcohol rarely. No drug use. Family history. Father had depression. Hypertension. Mother had stroke. Aunt had stroke. Uncle had Parkinson's disorder. Admission Exam Per Admitting Provider General- Not in distress Head- atraumatic Eyes- PERRL. ENT- oropharynx clear Neck- supple, no JVD. Lungs- clear to auscultation no wheezing or crackles Heart- regular rhythm; no murmur, no gallop. Abdomen- normal bowel sounds, soft, nontender, no distension. Extremities- no pretibial edema, normal movement of left lower extremity Neuro- alert, oriented PERRL, no facial palsy; no dysarthria; moves extremities Musculoskeletal Tenderness in left hip region. Left leg Straight leg raise test normal Principal Diagnosis Acute pain of left hip Discharge Exam General- Not in distress Head- atraumatic Eyes- PERRL. ENT- oropharynx clear Neck- supple, no JVD. Lungs- clear to auscultation no wheezing or crackles Heart- regular rhythm; no murmur, no gallop. Abdomen- normal bowel sounds, soft, nontender, no distension. Extremities- no pretibial edema, normal movement of left lower extremity Neuro- alert, oriented PERRL, no facial palsy; no dysarthria; moves ex tremities Musculoskeletal Tenderness in left hip region. Discharge Data Allergies Allergy/AdvReac Type Severity Reaction Status Date / Time Sulfa (Sulfonamide Allergy Intermediate HIVES Verified 01/02/24 18:24 Antibiotics) azithromycin Allergy Unknown Unknown Unverified 01/02/24 18:24 Consultations 10/15/24 04:51 ED Decision to Admit Stat 10/15/24 08:45 Consult Orthopedic Surgery Routine Ordered Studies 10/15/24 10:17 CT hip LT wo con Urgent 10/15/24 10:27 US venous duplex leg [US venous doppler LE BI] Routine Hospital Course (1) Acute pain of left hip: 84-year-old female with past medical history significant for dyslipidemia, hypothyroidism, chronic gout of left ankle, chronic rhinitis, vocal cord dysfun ction, moderate persistent asthma without complication, lung nodules, chronic cough, bronchiectasis, renal artery aneurysm, hypertension, mild aortic regurgitation, irritable bowel syndrome with diarrhea, GERD, CKD stage III, essential tremor, history of generalized anxiety disorder , history of pulmonary embolism, history of TIA presents because of severe left hip pain. Acute pain of left hip Patient presented with acute pain on her left hip radiating down her thigh. X-ray of the hip and pelvis showed small bone fragment seen adjacent to the tip of the roof of the left acetabulum. CT of the hip was done which did not show any acute finding. Likely related with muscular sprain Orthopedic consulted; continue pain control and weight-bear as tolerated. Possible corticosteroid injection as outpatient PT OT recommended home with home health; patient was set up with home PT OT. Hypertension On lisinopril hydrochlorothiazide and spironolactone and metoprolol succinate at home. Patient blood pressure was found to be on the lower side during the hospitalization for which her antihypertensives were kept on hold. Instruction placed regarding gradually resuming the antihypertensives while monitoring it daily. Patient verbalized understanding of the instructions. Please note the above document was generated using voice recognition software. It may contain grammatical, syntax or spelling errors. Any formal questions or concerns about the content, text or information contained within the body of this dictation should be directly addressed to the provider for clarification Total Time Total Time Spent Total Time Spent (In Minutes): 45 Total Time Includes: Examination of the Patient, Discharge Planning, Medication Reconciliation, Communication With Other Providers and Other Discharge Plan Discharge Items Patient Disposition: Home - Home Health Services Reason For Visit: SEVERE LEFT HIP PAIN Discharge Diagnosis: Acute pain of left hip likely due to muscle strain Condition on Discharge: Fair Activity: Resume your previous activity Non-emergency contact: Primary Care Provider Call non-emergency contact if: you have any medication questions and your symptoms worsen Follow-up/Referrals: Phil Maldonado MD [Primary Care Provider] - 10/23/24 1:40 pm (Date & Time 10/23/2024 1:40 PM Provider: Saul Mccartney DO General Internal Medicine [facility]) Diet: Regular Addtl Attending Provider Instructions: You were admitted to the hospital with left hip pain. You underwent x-ray and the CT of the hip which did not show any fracture. The likely cause for the pain is muscular sprain/tendinopathy. Please continue to take Tylenol as needed for pain control. You can also use diclofenac gel over the hip. Your blood pressure was found to be on the lower side during the hospitalization; lisinoprilhydrochlorothiazide and spironolactone is on hold. Please follow the instructions below Measure your blood pressure daily at home. Once your blood pressure is greater than 140 /90; start taking spironolactone 25 mg. Then, in next 2 to 3 days; if your blood pressure is persistently elevated to more than 140/80start taking lisinopril/hydrochlorothiazide. An appointment is set up with your primary care doctor for follow-up Addtl [employer] Provider Instructions: Weightbearing as tolerated with walker assistance PT/OT Follow-up sent to [facility] for sports medicine consult for an ultrasound-guided left hip corticosteroid injection and diagnostic ultrasound of her right SI joint (Appt is shimon/ Dr. Torres 11/01/24 @ 1:00 PM) Pain control with p.o. medication and application of Voltaren Gel Cont Coumadin for DVT prophylaxis Patient may need to go to a penitentiary or rehab facility upon discharge Pending Studies at Discharge: No Stand-Alone Forms: My [employer], Smoking Cessation Medications and DC Order Prescriptions: New acetaminophen 325 mg Tablet 650 mg PO Q6H Qty: 30 0RF Continued pravastatin 10 mg tablet 10 mg PO QPM paroxetine HCl [Paxil] 30 mg tablet 30 mg PO QAM albuterol sulfate 90 mcg/actuation Hfa Aerosol Inhaler 2 puff INHALATION Q6H PRN (Reason: Shortness Of Breath Or Wheezing) cholecalciferol (vitamin D3) [Vitamin D3] 1,000 unit Tablet 1,000 unit PO QAM levocetirizine [Xyzal] 5 mg tablet 2.5 mg PO Q OTHER DAY metoprolol succinate [Toprol XL] 25 mg Tablet Extended Release 24 Hr 12.5 mg PO QAM montelukast [Singulair] 10 mg Tablet 10 mg PO PM warfarin 2.5 mg tablet See Rx Instructions .ROUTE .COMPLEX Hold Instructions: Hold today and tomorrow. Follow up with your doctor for further instructions Rx Instructions: TAKES 2.5 MG ON SUN, TU, WED, FRI, SAT. THEN 1.25 MG ON MON/THURS. Takes medication at night allopurinol 100 mg tablet 200 mg PO QAM levothyroxine 75 mcg tablet 75 mcg PO DAILYBB prednisone 2.5 mg tablet 2.5 mg PO QAM Held spironolactone [Aldactone] 25 mg tablet 25 mg PO QAM Hold Instructions: Hold for 2 days until your blood pressures improves/diarrhea resolves lisinopril-hydrochlorothiazide 20-12.5 mg Tablet 2 tab PO QAM Hold Instructions: Hold for 2 days until your blood pressures improves/diarrhea resolves Discharge Orders: Discharge Order (Routine); Ordered 10/17/24 Ordered By: Chester Vance Admission Data Admit Date/Time: 10/15/24 05:17 Attending Provider: Chester Vance Admit Provider: Tomás Sosa Primary Care Provider: Phil Maldonado Other Providers: Tomás Sosa; Júnior Her; Evelin,Home Health Other Interventions: Discharge Summary Assessment (RN) Last Done: 10/17/24 11:04
== END 2024-10-17 12:24 | disposition home health service (06) | DRG 538 ==
LOC: ED 00:25 → 3E 05:17